=== PATIENT | female | born 1960 | race Caucasian/White ===

== ENCOUNTER → 2018-10-15 23:16 | Outpatient (CLI) | payer OTHER, SELFPAY ==
[2018-10-15 16:04] VITALS: BMI 40.5
[2018-10-15 23:36] LABS: Absolute Lymphocyte Count 3.07 X10^3/ul (0.83-4.51); Absolute Neutrophil Count 4.1 X10^3/uL (2.0-7.7); Basophil# 0.06 X10^3/uL; Basophil% 0.7 % (0-1); Eosinophil# 0.05 X10^3/uL; Eosinophils% 0.6 % (0-5); Hematocrit 45.5 % (37-47); Hemoglobin 14.9 g/dl (12.0-15.0); Lymphocyte # 3.07 X10^3/ul (4.0); Mean Corp Hgb Conc 32.7 g/gl (32-36); Mean Corpuscular Hgb 30.7 pg (27.0-32.0); Mean Corpuscular Volume 93.8 fL (81-99); Mean Platelet Vol. 13.4 fl (6.2-12.0); Monocyte# 0.75 X10^3/uL; Monocyte% 9.3 % (0-10); Neutrophil # 4.13 X10^3/uL (2.7-7.7); Neutrophil % 51.2 % (47-70); POSITIVE COUNT NO; POSITIVE DIFFERENTIAL NO; POSITIVE MORPHOLOGY NO; Platelet Count 224 K/mm3 (150-450); RBC Distribution Width CV 14.1 % (11.6-14.6); RBC Distribution Width SD 46.4 fl (35.1-43.9); Red Blood Count 4.85 M/mm3 (4.2-5.4); White Blood Count 8.1 K/mm3 (4.4-11.0)
[2018-10-16 00:09] LABS: ALB/GLOB Ratio 1.1 RATIO (0.9-2.4); AST(SGOT) 16 U/L (15-37); Alanine Aminotransfer ALT/SGPT 34 U/L (13-56); Alkaline Phosphatase 110 U/L (45-117); Anion Gap 11 (5-15); BUN 16 mg/dL (7-18); BUN/Creat Ratio 22.8 RATIO (10-20); Calcium,Total 8.9 mg/dL (8.5-10.1); Chloride 104 mmol/L (98-107); Cholesterol 251 mg/dL (200); EST Glomerular Filtration Rate 91 mL/min (>60); Est Glom Filt Rate - Afr Amer 111 mL/min (>60); Globulin 3.7 g/dL (2.2-4.2); Glucose 187 mg/dL (74-106); High Density Lipoprotein 32 mg/dL; Potassium 4.2 mmol/L (3.5-5.1); Protein, Total 7.7 g/dL (6.4-8.2); Sodium Level 137 mmol/L (136-145); Thyroid Stim Hormone (TSH) 1.42 uIU/mL (0.358-3.74); Triglycerides 370 mg/dL; Very Low Density Lipoprotein 74 mg/dL (5-40)
[2018-10-16 00:15] LABS: Digoxin Level 0.38 ng/mL (0.80-2.00)
--- OUTSIDE RECORDS SUMMARY | 2018-12-18 | XMS RPT_ITS ---
:1960 Author Organization OHIP Care Team Providers Name Role Phone Nyla Garcia POWDERER-C Attending Unavailable Nyla Garcia POWDERER-C Referring Unavailable Nyla Garcia POWDERER-C Primary Care Unavailable PROBLEMS PROBLEMS DATE TYPE CONDITION / CODE ATTENDING STATUS SOURCE 10/16/2018 Unknown I10 - Essential Garcia, Active [place] (primary) Nyla POWDERER-C [facility] hypertension / Hospital I10(ICD-10) Repository 10/16/2018 Unknown K21.9 - Garcia, Active [place] Gastro-esophageal Nyla POWDERER-C [facility] reflux disease Hospital without esophagitis Repository / K21.9(ICD-10) 10/16/2018 Unknown E11.65 - Type 2 Garcia, Active [place] diabetes mellitus Nyla POWDERER-C [facility] with hyperglycemia Hospital / E11.65(ICD-10) Repository 10/16/2018 Unknown I48.91 - Garcia, Active [place] Unspecified atrial Nyla POWDERER-C [facility] fibrillation / Hospital I48.91(ICD-10) Repository PROCEDURES PROCEDURES No Procedure Records FoundRESULTS RESULTS OFFICE VISIT Observed: 10/15/2018 Status: F Source: [place] 8:54 PM [facility] RE[facility]ITORY [facility] [address] [place] [address] OFFICE VISIT Date of Service: 10/15/18 MR#: [id number] Acct: [id number] Name: SACHIN SCHWAB Rep #: [id number] : 1960 Provider: RADHA Garcia Age/Sex: 58/F Location: [facility] Status: Signed Intake Vital Signs10/15/18 Height 5 ft 4.25 in 10/15/18 Weight: 238 lb Intake Visit Reasons: SEEKING NEW DR Accompanied by: self Is patient in pain?: No Allergies Uufkgtj-Moe-Ojg Reductase Inhibitor Allergy (Intermediate, Unverified 10/15/18 16:05) cramps Medications cholecalciferol (vitamin D3) 1,000 unit capsule 1,000 unit PO DAILY 10/15/18 [History Confirmed 10/15/18] dapagliflozin 10 mg tablet 10 mg PO DAILY 10/15/18 [History Confirmed 10/15/18] digoxin 125 mcg tablet 0.125 mg PO DAILY #90 tab 10/15/18 [Rx Confirmed 10/15/18] furosemide 20 mg tablet 20 mg PO DAILY PRN 10/15/18 [History Confirmed 10/15/18] losartan 50 mg tablet 50 mg PO DAILY #90 tab 10/15/18 [Rx Confirmed 10/15/18] metformin 500 mg tablet 500 mg PO BID #180 tab 10/15/18 [Rx Confirmed 10/15/18] metoprolol succinate ER 100 mg tablet,extended release 24 hr 100 mg PO DAILY #90 tab 10/15/18 [Rx Confirmed 10/15/18] omeprazole 40 mg capsule,delayed release 40 mg PO DAILY #90 cap 10/15/18 [Rx Confirmed 10/15/18] sitagliptin 100 mg tablet 100 mg PO DAILY 10/15/18 [History Confirmed 10/15/18] vitamin E (dl, acetate) 400 unit capsule 180 unit PO DAILY cap 10/15/18 [History Confirmed 10/15/18] Is last menstrual period known: No Post menopausal: Yes Patient : No PFSH Medical History Cardiac defibrillator in place (Acute) Diabetes type 2, uncontrolled (Acute) GERD (gastroesophageal reflux disease) (Acute) Myocardial infarct (Acute) Pacemaker (Acute) Hypertension (Chronic) Surgical History H/O heart artery stent (Acute) H/O tubal ligation (Acute) Family History Sister Breast cancer Diabetes Thyroid disorder Mother CVA (cerebral vascular accident) Diabetes Heart disease Myocardial infarction Father Heart disease Myocardial infarction Other CAD (coronary artery disease) HPI HPI (General) HPI HPI: EAMON SCHWAB, is a 58 F who presents to the office today for Her Dr moved away and she need her medications refilled. No concerns at this time last seen at the Dr was Jun ROS Const Constitutional: No anorexia, body ache, chills, excessive sweating, fatigue, fever(s), frequent falls, headache(s), decreased energy, malaise, night sweats, snoring, weakness, weight change, sleep problems, abnormal sleep pattern, change in appetite or other Eyes Eyes: No blurry vision, change in vision, double vision, discharge, dry eyes, bulging eyes, floaters, visual disturbances, eye pain, light sensitivity, spots in vision, tunnel vision or other ENT ENT: No headache(s), abnormal hearing, ear pain, ear discharge, ear pressure, hearing loss, tinnitus, dizziness/vertigo, balance problems, nosebleed/epistaxis, nasal congestion, nasal obstruction, nose pain, sinus pressure, sinus pain, nasal discharge, post nasal drip, facial pain, dental pain, dry mouth, difficulty swallowing, bad breath, hoarseness, lip swelling, mouth lesions, mouth pain, neck pain, sore throat, tongue swelling, throat swelling or other Resp Respiratory: No snoring, cough, change in phlegm color, chest congestion, excessive phlegm production, hemoptysis, pain on inspiration, shortness of breath, pain with cough, stridor, wheezing or other Cardio Cardiology: No excessive sweating, chest pain at rest, chest pain with exertion, leg pain with exertion, shortness of breath, dyspnea on exertion, generalized swelling, irregular heart rhythm, lightheadedness, orthopnea, radiating jaw, neck or arm pain, fast heart rate, slow heart rate, palpitations or other Gastro GI: No other, No Difficulty Swallowing, No abdominal pain, No belching, No bloating, No change in bowel habits, No change in stool character, No coffee ground emesis, No constipation, No cramping, No diarrhea, No heartburn, No feeling full early, No excessive flatus, No incontinent of stools, No Vomiting blood/hematemesis, No Blood in stool, No loose stools, No Black,tarry stools, No nausea/dyspepsia, No pain with swallowing, No vomiting, No hemorrhoids, No rectal pain Genitourinary: No urinary frequency, difficulty urinating, burning urination, painful urination, urinary urgency or blood in urine Musc Musculoskeletal: No neck pain, abnormal walking, joint pain, back pain, deformity, joint swelling, limited range of motion, loss of height, muscle cramps, muscle weakness, decreased muscle mass, body aches, numbness, radiating pain into limb, stiffness, tingling or other Skin Skin: No acne, hair loss, change in hair, nail changes, boil, change in skin color, dry skin, redness, excessive hair growth, yellowing of the skin, lesions, itching, rash, skin pain, skin ulcer, sores, skin swelling, wounds or other Breast Breast: No other Neuro Neurology: No frequent falls, headache(s), weakness, visual disturbances, abnormal hearing, abnormal walking, numbness, tingling, abnormal movements, abnormal speech, behavioral changes, confusion, unsteady gait/balance, dizziness, lack of coordination, loss of vision, memory loss, restless legs, fainting, tremor(s) or other Psych Psychiatric: No abnormal sleep pattern, No change in appetite, No behavioral changes, No confusion, No memory loss, No lack of enjoyment, No anxiety, No depression, No difficulty concentrating, No hopelessness, No irritability, No mood swings, No panic attacks, No paranoia, No Thoughts of harming yourself/Others, No hallucinations, No other Endo Endo: No excessive sweating, No fatigue, No other Aller/Imm Allergy/Immunologic: No lip swelling, tongue swelling, throat swelling, wheezing or itchy eyes Exam Const Constitutional: Yes cooperative, Yes healthy appearing Orientation: Yes alert, awake and oriented x3 Eyes General: Yes appearance normal, both eyes and all related structures Chest Chest palpation AND inspection: Yes normal inspection of the chest Resp Effort AND Inspection: No stridor Auscultation: Yes clear to auscultation bilaterally Cardio Palpitation: Yes normal PMI Rate: Yes regular rate Rhythm: Yes regular rhythm GI Inspection: Yes normal to inspection Auscultation: Yes normal bowel sounds Rectal Exam: No hemorrhoids Musc Cervical Spine: Yes cervical ROM normal Thoracic/Lumbar Spine: Yes thoracic and lumbar spine normal to inspection Skin General: no rashes or lesions noted Lesions: Yes no lesions Extrem General: Yes normal to inspection Neuro General: Yes alert and oriented x3 Motor: No weakness Psych Appearance: Positive grossly normal Mood: Positive congruent mood Affect: Positive normal affect Results POC A1C POC A1C 9.3 % Last Edit by ESTEBAN Castellanos on 10/15/18 20:53 Assessment AND Plan Problems 1. Gastroesophageal reflux disease without esophagitis K21.9 2. Uncontrolled type 2 diabetes mellitus with hyperglycemia E11.65 3. Essential hypertension I10 Patient Instructions Start the new medication farxiga instead of the januvia continue the other medications as prescribed follow up 3-4 Orders Orders: Medications New: Coding Level of Care Code Off vis,new,level 3 Diagnoses Gastroesophageal reflux disease without esophagitis K21.9 Esophagitis presence: without esophagitis Uncontrolled type 2 diabetes mellitus with hyperglycemia E11.65 Glycemic state: with hyperglycemia Essential hypertension I10 Hypertension type: essential hypertension 10/15/182053 <Electronically signed by Nyla ORELLANA> Date Nyla ORELLANA CC: CBC W/DIFF, AUTOMATED Collected: 10/15/2018 Status: F Source: [place] 4:45 PM [facility] REPOSITORY TYPE CODE TESTS RESULT OUT OF RANGE REFERENCE UNITS LAB L100.1000 4.4-11.0 K/mm3 Normal WBC 8.1 LAB L100.1200 4.2-5.4 M/mm3 Normal RBC 4.85 LAB L100.1300 12.0-15.0 g/dl Normal HGB 14.9 LAB L100.1400 37-47 % Normal HCT 45.5 LAB L100.1500 81-99 fL Normal MCV 93.8 LAB L100.1600 27.0-32.0 pg Normal MCH 30.7 LAB L100.1700 32-36 g/gl Normal MCHC 32.7 LAB L100.1810 11.6-14.6 % Normal RDW CV 14.1 LAB L100.1820 35.1-43.9 fl High RDW SD 46.4 LAB L100.1900 150-450 K/mm3 Normal PLT 224 LAB L100.2000 6.2-12.0 fl High MPV 13.4 LAB L100.2100 47-70 % Normal NEUT% 51.2 LAB L100.2200 19-41 % Normal LY% 38.0 LAB L100.2300 0-10 % Normal MONO% 9.3 LAB L100.2400 0-5 % Normal EO% 0.6 LAB L100.2500 0-1 % Normal BASO% 0.7 LAB L100.2550 0.0-0.9 % Normal IM GRAN % 0.200 Result Comment: IG% - Immature Granulocytes (promyelocytes, myelocytes and metamyelocytes) > 1% indicates that a LEFT SHIFT is Present. LAB L100.2620 2.0-7.7 X10 3/uL Normal Absolute Neut 4.1 LAB L100.2720 0.83-4.51 X10 3/ul Normal Absolute Lymph 3.07 Performed By: #### L100.0100 #### [facility] [place], [address] COMPREHENSIVE METABOLIC Collected: 10/15/2018 Status: F Source: [facility] 4:45 PM [facility] REPOSITORY TYPE CODE TESTS RESULT OUT OF RANGE REFERENCE UNITS LAB L501.0100 74-106 mg/dL High GLU 187 Result Comment: Fasting Glucose result greater than or equal to 126 mg/dL suggests DIABETES MELLITUS per A.D.A. criteria. Please note revised GLUCOSE reference range effective 2017. LAB L501.1000 7-18 mg/dL Normal BUN 16 LAB L501.1100 0.55-1.02 mg/dL Normal CREAT,SERUM 0.70 Result Comment: The validity of the calculated GFR AND GFRAA in patients over 70 years has not been determined. Clinical correlation is essential. LAB L501.1110 >60 mL/min Normal EST GFR 91 Result Comment: Non- GFR Calc LAB L501.1115 >60 mL/min Normal EST GFR - AA 111 Result Comment: GFR Calc LAB L501.1300 10-20 RATIO High BUN/CRE 22.8 LAB L501.1500 6.4-8.2 g/dL T Normal PROT 7.7 LAB L501.1800 3.2-5.0 g/dL Normal ALB 4.0 LAB L501.1950 2.2-4.2 g/dL Normal GLOB 3.7 LAB L501.2000 0.9-2.4 RATIO Normal A/G 1.1 LAB L501.2200 8.5-10.1 mg/dL CA Normal 8.9 LAB L501.4100 15-37 U/L Normal AST 16 LAB L501.4305 45-117 U/L Normal ALK P 110 LAB L501.4405 13-56 U/L Normal ALT 34 LAB L501.4600 0.20-1.00 mg/dL T Normal BILI 0.30 LAB L501.5300 136-145 mmol/L NA Normal 137 LAB L501.5600 3.5-5.1 mmol/L K Normal 4.2 LAB L501.5900 98-107 mmol/L CL Normal 104 LAB L501.6100 21.0-32.0 mmol/L Normal CO2 22.0 LAB L501.6200 5-15 Normal GAP 11 Performed By: #### L500.4050, L500.4100, L501.9520 #### [facility] [address] [place], [place], [id number] LIPID PROFILE Collected: 10/15/2018 Status: F Source: [place] 4:45 PM [facility] REPOSITORY TYPE CODE TESTS RESULT OUT OF RANGE REFERENCE UNITS LAB L501.4900 200 mg/dL High CHOL 251 Result Comment: <200 mg/dL Desirable 200-240 mg/dL Borderline >240 mg/dL High Risk LAB L501.5000 mg/dL High TRIG 370 Result Comment: The drugs N-Acetylcysteine and Metamizole may falsely depress this assay. Serum Triglycerides Reference Interval Normal <150 mg/dL Borderline high 150 - 199 mg/dL High 200 - 499 mg/dL Very High > or = 500 mg/dL LAB L501.6400 mg/dL Low HDL 32 Result Comment: The drugs N-Acetylcysteine and Metamizole may falsely depress this assay. Reference Range HDL <40 mg/dL Low HDL Cholesterol HDL >or= 60 mg/dL High HDL Cholesterol LAB L501.6500 0-130 mg/dL High LDL 145 LAB L501.6600 5-40 mg/dL High VLDL 74 Performed By: #### L500.4050, L500.4100, L501.9520 #### [facility] [address] [place], [place], [id number] THYROID STIM HORMONE Collected: 10/15/2018 Status: F Source: [place] (TSH) 4:45 PM [facility] REPOSITORY TYPE CODE TESTS RESULT OUT OF RANGE REFERENCE UNITS LAB L501.9520 0.358-3.74 uIU/mL Normal TSH 1.42 Performed By: #### L500.4050, L500.4100, L501.9520 #### [facility] [address] [place], [address] DIGOXIN LEVEL Collected: 10/15/2018 Status: F Source: [place] 4:45 PM [facility] REPOSITORY TYPE CODE TESTS RESULT OUT OF RANGE REFERENCE UNITS LAB L501.7510 0.80-2.00 ng/mL Low DIG 0.38 Performed By: #### L501.7510 #### [facility] [address] [place], [address] ALLERGIES ALLERGIES DATE TYPE / CODE NAME / CODE REACTION SEVERITY SOURCE 10/15/2018 Drug Xpnsfgb-Eyb-Tpk [place] [facility] Allergy/[facility] 282966(SNOM Inhibitor/A86139 Repository ED CT) 7814(RXNORM) ENCOUNTERS ENCOUNTERS ADMIT/DISCHARGE ACCOUNT ADMITTING ENCOUNTER LOCATION SOURCE NUMBER CLASS 10/15/2018 [id number] Ambulatory [address] ing:LABSPEC Repository PAYERS PAYERS ENCOUNTER GUARANTOR PAYER SUBSCRIBER SOURCE 10/15/2018 SACHIN L Primary SACHIN L [place] [id number] [place] [address] Insurance:MEDICAL [employer]: [id number] [id number]: [phone]) Number: Repository [phone] () [id number] Date:[id number] [address] [place] [id number]: 10/15/2018 Secondary NOT GIVENUNK [place] Insurance:SELF PAY [facility] Number: Effective Repository Date:2018-10-15
== END ==
PROVIDERS: Family Provider Nurse Practitioner; PCP Nurse Practitioner; Referring Provider Nurse Practitioner; Visit Provider Nurse Practitioner
DX: I10 Essential (primary) hypertension (principal); K21.9 Gastro-esophageal reflux disease without esophagitis; E11.65 Type 2 diabetes mellitus with hyperglycemia; I48.91 Unspecified atrial fibrillation
CPT/HCPCS: 80053; 80061; 80162; 84443; 85025

== ENCOUNTER → 2018-10-31 21:40 | Outpatient (CLI) | payer OTHER, SELFPAY ==
[2018-10-31 15:56] VITALS: BMI 40.4
[2018-10-31 21:53] LABS: Absolute Lymphocyte Count 3.35 X10^3/ul (0.83-4.51); Absolute Neutrophil Count 4.6 X10^3/uL (2.0-7.7); Basophil# 0.04 X10^3/uL; Basophil% 0.4 % (0-1); Eosinophil# 0.09 X10^3/uL; Lymphocyte # 3.35 X10^3/ul (4.0); Lymphocyte % 37.1 % (19-41); Mean Corp Hgb Conc 31.9 g/gl (32-36); Mean Corpuscular Hgb 30.4 pg (27.0-32.0); Mean Corpuscular Volume 95.3 fL (81-99); Mean Platelet Vol. 13.4 fl (6.2-12.0); Monocyte# 0.95 X10^3/uL; Monocyte% 10.5 % (0-10); Neutrophil # 4.58 X10^3/uL (2.7-7.7); Neutrophil % 50.8 % (47-70); Platelet Count 268 K/mm3 (150-450); RBC Distribution Width CV 14.3 % (11.6-14.6); RBC Distribution Width SD 49.4 fl (35.1-43.9); Red Blood Count 4.93 M/mm3 (4.2-5.4)
[2018-10-31 21:54] LABS: POSITIVE COUNT NO; POSITIVE DIFFERENTIAL NO; POSITIVE MORPHOLOGY NO
[2018-10-31 22:36] LABS: ALB/GLOB Ratio 1.1 RATIO (0.9-2.4); AST(SGOT) 20 U/L (15-37); Alanine Aminotransfer ALT/SGPT 41 U/L (13-56); Albumin, Serum 4.1 g/dL (3.2-5.0); Alkaline Phosphatase 101 U/L (45-117); Anion Gap 12 (5-15); BUN 15 mg/dL (7-18); Calcium,Total 9.1 mg/dL (8.5-10.1); Chloride 105 mmol/L (98-107); Cholesterol 258 mg/dL (200); Creatinine, Serum 0.72 mg/dL (0.55-1.02); EST Glomerular Filtration Rate 90 mL/min (>60); Est Glom Filt Rate - Afr Amer 109 mL/min (>60); Globulin 3.9 g/dL (2.2-4.2); Glucose 215 mg/dL (74-106); High Density Lipoprotein 34 mg/dL; Potassium 4.2 mmol/L (3.5-5.1); Sodium Level 139 mmol/L (136-145); Thyroid Stim Hormone (TSH) 1.33 uIU/mL (0.358-3.74); Triglycerides 475 mg/dL
== END ==
PROVIDERS: Referring Provider Nurse Practitioner; Visit Provider Nurse Practitioner
DX: I10 Essential (primary) hypertension (principal); I49.8 Other specified cardiac arrhythmias; E11.65 Type 2 diabetes mellitus with hyperglycemia
CPT/HCPCS: 80053; 80061; 84443; 84484; 85025

== ENCOUNTER → 2020-02-27 12:31 | Outpatient (CLI) | payer OTHER, SELFPAY ==
[2019-12-11 17:21] VITALS: BMI 39.2
== END ==
PROVIDERS: PCP Nurse Practitioner; Referring Provider Nurse Practitioner; Visit Provider Nurse Practitioner
DX: Z20.828 Contact with and (suspected) exposure to other viral communicable diseases (principal)
CPT/HCPCS: 87635; G2023; U0003

== ENCOUNTER 2020-03-20 19:05 | Emergency (ER) | payer OTHER, SELFPAY ==
[2019-12-11 17:21] VITALS: BMI 39.2
[2020-03-20 19:06] VITALS: BP 157/69; PULSE 112; RESP 19; TEMP 36.8; O2SAT 94; BMI 40.2
[2020-03-20 19:33] VITALS: O2SAT 97
--- NOTE | 2020-03-20 19:33 | RAD_ITS ---
HISTORY: began to feel very short of breath at home then her internal defibrilator went off per ptHX CHF, PR EXAM: XR Chest 1 View: COMPARISON: None FINDINGS: # of images incl. paperwork: 1 Left chest wall triple lead cardiac pacer/defibrillator is in place from a left subclavian approach. Calcific plaque within the aortic arch is minimal Lungs are clear. Heart is not enlarged. No acute osseous pathology perceived. Pulmonary vascularity is distinct. No effusions. RAD/Chest 1 View (Portable) IMPRESSION: No acute cardiopulmonary disease perceived. at 2037 Reported and signed by: Hua Baugh MD Electronically Signed: Hua Baugh MD at 20:36 EDT Tel , Service support ,
--- NOTE | 2020-03-20 19:33 | EKG12_ITS ---
Test Reason : CP Blood Pressure : / mmHG Vent. Rate : 107 BPM Atrial Rate : 107 BPM P-R Int : 124 ms QRS Dur : 126 ms QT Int : 380 ms P-R-T Axes : 096 -73 107 degrees QTc Int : 507 ms Atrial-sensed ventricular-paced rhythm Abnormal ECG Confirmed by HEATHER MACDONALD, CLAUDIA ([id number]), editor map CONNIE HOOKER ([id number]) on 03/23/2020 11:04:31 AM Referred By: SCOT BIRCH Confirmed By:CLAUDIA ROMERO MD
--- NOTE | 2020-03-20 19:34 | ED.VIS.CHEST ---
History of Present Illness Chief Complaint: Chest Pain Detail of Chief Complaint: sob Informant: Patient Onset: Today - JPTA Activity at onset: Light Activity Timing: Intermittent - 2-3 min Quality: - - No chest discomfort. Just felt short of breath and some left upper extremity discomfort, lightheadedness. Current Severity: Gone Maximum Severity: Moderate Worsened By: Nothing Relieved By: - - AICD firing once Associated Symptoms: Dyspnea, Lightheadedness, Palpitations. Negative for: Nausea, Vomiting, Diaphoresis Narrative: Patient has a history of CAD and congestive heart failure with an AICD/pacemaker, she states she was putting on her pajamas and suddenly felt very short of breath, lightheaded, some left arm discomfort, and within 2 or 3 minutes of the starting suddenly, her AICD fired once, and then she felt better which she does now just a little malaised. She has otherwise been feeling fine lately. - Past Medical History (1) Congestive heart failure Status: Chronic (2) CAD (coronary artery disease) Status: Chronic (3) Diabetes type 2, uncontrolled Status: Chronic (4) GERD (gastroesophageal reflux disease) Status: Chronic (5) Hypertension Status: Chronic Past Medical History - Allergies and Home Meds Allergies/Adverse Reactions: Allergies Jkflzcb-Gah-Kot Reductase Inhibitor Allergy (Intermediate, Unverified 03/20/20 20:35) cramps Primary Care Physician: EP cardiology device clinic, [place] [Other] (after the weekend; call Sunday AM for appt) Nyla Garcia NP-C [Primary Care Provider] - Surgical History: pacemaker implantation - With AICD Lives: Spouse/ Significant Other Smoking Status: Never smoker Review of Systems General: Reports: - - Lightheaded near syncope but no LOC. Denies: Chills, Fever, Sweats Eyes: Denies: Visual changes - bilaterally, Diplopia ENT: Denies: Rhinorrhea, Sore throat Cardiovascular: Reports: Palpitations, Heart racing. Denies: Chest pain Respiratory: Reports: Dyspnea. Denies: Cough, Dyspnea on exertion Gastrointestinal: Denies: Abdominal pain, Nausea, Vomiting, Diarrhea, Melena, Hematochezia Genitourinary: Denies: Dysuria, Hematuria, Frequency Musculoskeletal: Reports: Extremity Pain - Left arm. Resolved.. Denies: Back pain, Swelling Skin: Denies: Rash, Wounds Neurological: Denies: Headache, Weakness, Numbness Physical Exam Vital Signs/Narrative: Vital Signs Temp Pulse Resp BP Pulse Ox 03/20/20 19:06 98.2 F 112 H 19 H 157/69 H 94 Inital Vital Signs reviewed: Yes General: Well nourished, Well developed, No Acute Distress Head: Normocephalic, Atraumatic Eyes: Perrl, EOMI ENT: Moist mucous membranes, No rhinorrhea Neck: Supple, Nontender, No JVD Cardiovascular: Regular rate, Regular rhythm, No murmurs. Negative for: Irregular Respiratory: No distress, CTA bilaterally, Chest nontender Abdomen: Soft, Nontender, Nondistended, Normal bowel sounds Back: Nontender, Normal Inspection Extremities: Nontender, No edema. Negative for: Calf Tenderness Skin: Normal color, No rash, No Trauma Neurological: Alert, Oriented x3, Cranial nerves II-XII grossly intact, Normal Strength, Normal Sensation, Normal Gait Psychological: Normal affect, Normal Mood Diagnostic/Tx/Re-eval Impressions Chest X-Ray 03/20/20 19:33 IMPRESSION: No acute cardiopulmonary disease perceived. at 2037 Reported and signed by: Hua Baugh MD Electronically Signed: Hua Baugh MD at 20:36 EDT Tel , Service support , 03/20/20 19:33 Chest 1 View (Portable) [RAD] Stat Laboratory Results 03/20/20 03/20/20 19:13 19:13 WBC 7.7 RBC 4.81 Hgb 14.7 Hct 45.9 MCV 95.4 MCH 30.6 MCHC 32.0 RDW Std Deviation 47.8 H RDW Coeff of Cally 13.7 Plt Count 223 MPV 12.6 H Immature Gran % (Auto) 0.300 Neut % (Auto) 45.0 L Lymph % (Auto) 41.4 H Sanders % (Auto) 11.4 H Eos % (Auto) 1.0 Baso % (Auto) 0.9 Absolute Neuts (auto) 3.5 Absolute Lymphs (auto) 3.18 Nucleated RBC % 0 Sodium 136 Potassium 3.8 Chloride 102 Carbon Dioxide 25.0 Anion Gap 9 BUN 14 Creatinine 1.03 H Estim Creat Clear Calc 52.04 Est GFR (MDRD) Af Amer 71 Est GFR (MDRD) Non-Af 59 L BUN/Creatinine Ratio 13.6 Glucose 416 H Calcium 9.1 Troponin I < 0.015 - Rhythm Strip Rhythm Strip: paced Rate: 100 Ectopy: None - EKG Initial EKG Interpretation: Paced - Ventricular pacing capture. Rhythm undetermined, appears sinus tachycardia. Prior: No Prior Repeat Eval: Pain Free - Medical Decision Making Work-up unremarkable, troponin negative, patient remains chest pain-free and without dyspnea or palpitations. She is on metoprolol and digoxin and no antidysrhythmics otherwise. She has a [employer] device. She clinically and hemodynamically stable. [employer] scale technician came and queried her device. It showed atrial fibrillation, followed by her ventricular rate surpassing her threshold, which caused her to have AICD discharge, resulting in cardioversion. Patient does have a known history of paroxysmal atrial fibrillation and is not anticoagulated. She follows with the device clinic at [facility] in [place], and sees Dr. Pettit, the italian tutor there but does not follow with an EP mft at this time. Dr. Pettit was ship's electronic warfare officer and I was actually able to speak with him, he is okay with the patient going home at this time and coming back if she gets another discharge or any other issues, and in the meantime doubling her metoprolol succinate dose from 100 mg nightly to 200. She took her medication just prior to this occurring, I will give her another dose now prior to discharging her home and then she will double her dose tomorrow night and going forward till she follows up. She is comfortable with that overall plan. ED Disposition - Plan for ED Patient: Disposition: Home or Assisted Living Diagnosis: Dyspnea, AICD discharge, Paroxysmal A-fib Instructions: ED AFIB Referrals: Nyla Garcia, RADHA-C [Primary Care Provider] - EP cardiology device clinic, [place] [[facility]] (after the weekend; call Sunday AM for appt) Additional Instructions: Starting tomorrow night, double your dose of metoprolol so that you are taking 200 mg every night before bed.
[2020-03-20 20:04] LABS: Absolute Lymphocyte Count 3.18 X10^3/uL (0.83-4.51); Absolute Neutrophil Count 3.5 X10^3/uL (2.0-7.7); Basophil# 0.07 X10^3/uL; Basophil% 0.9 % (0-1); Eosinophil# 0.08 X10^3/uL; Hematocrit 45.9 % (37-47); Hemoglobin 14.7 g/dL (12.0-15.0); Lymphocyte # 3.18 X10^3/ul (4.0); Lymphocyte % 41.4 % (19-41); Mean Corpuscular Hgb 30.6 pg (27.0-32.0); Mean Corpuscular Volume 95.4 fL (81-99); Mean Platelet Vol. 12.6 fl (6.2-12.0); Monocyte# 0.88 X10^3/uL; Monocyte% 11.4 % (0-10); NRBC Flagged by Analyzer 0 % (0-5); Neutrophil # 3.46 X10^3/uL (2.7-7.7); Platelet Count 223 K/mm3 (150-450); RBC Distribution Width CV 13.7 % (11.6-14.6); RBC Distribution Width SD 47.8 fl (35.1-43.9); Red Blood Count 4.81 M/mm3 (4.2-5.4); White Blood Count 7.7 K/mm3 (4.4-11.0)
[2020-03-20 20:05] VITALS: PULSE 92; RESP 22; O2SAT 96
[2020-03-20 20:21] LABS: Anion Gap 9 (5-15); BUN 14 mg/dL (7-18); BUN/Creat Ratio 13.6 RATIO (10-20); Calcium,Total 9.1 mg/dL (8.5-10.1); Chloride 102 mmol/L (98-107); Creatinine, Serum 1.03 mg/dL (0.55-1.02); EST Glomerular Filtration Rate 59 mL/min (>60); Est Glom Filt Rate - Afr Amer 71 mL/min (>60); Estimated Creatinine Clearance 52.04 ml/min; Glucose 416 mg/dL (74-106); Potassium 3.8 mmol/L (3.5-5.1); Sodium Level 136 mmol/L (136-145)
[2020-03-20] MEDS: 0.9% Normal Saline 1,000 ML 150 ML IV (20:35)
[2020-03-20 22:00] VITALS: BP 121/65; PULSE 89; RESP 20; O2SAT 96
[2020-03-20] MEDS: Metoprolol(XL)Succ 100 MG Tablet PO (22:19)
[2020-03-20 22:29] VITALS: RESP 19; O2SAT 95
== END 2020-03-20 22:29 | disposition home or self-care (01) ==
PROVIDERS: Emergency Provider Emergency Medicine; PCP Nurse Practitioner
DX: R06.00 Dyspnea, unspecified (principal); Z95.810 Presence of automatic (implantable) cardiac defibrillator; I48.0 Paroxysmal atrial fibrillation; I11.0 Hypertensive heart disease with heart failure; I50.9 Heart failure, unspecified; E11.9 Type 2 diabetes mellitus without complications; I25.10 Atherosclerotic heart disease of native coronary artery without angina pectoris; K21.9 Gastro-esophageal reflux disease without esophagitis; Z79.84 Long term (current) use of oral hypoglycemic drugs; Z79.899 Other long term (current) drug therapy
CPT/HCPCS: 71045; 80048; 84484; 85025; 93005; 96360; 96361; 99285; J7030; A4216

== ENCOUNTER → 2020-12-06 21:36 | Outpatient (CLI) | payer OTHER, SELFPAY ==
[2020-12-06 17:53] VITALS: BMI 38.9
[2020-12-06 22:08] LABS: Absolute Lymphocyte Count 3.16 X10^3/uL (0.83-4.51); Absolute Neutrophil Count 3.1 X10^3/uL (2.0-7.7); Basophil# 0.07 X10^3/uL; Eosinophil# 0.07 X10^3/uL; Hematocrit 47.1 % (37-47); Hemoglobin 15.4 g/dL (12.0-15.0); Lymphocyte # 3.16 X10^3/ul (4.0); Lymphocyte % 44.4 % (19-41); Mean Corp Hgb Conc 32.7 g/dL (32-36); Mean Corpuscular Hgb 30.5 pg (27.0-32.0); Mean Corpuscular Volume 93.3 fL (81-99); Mean Platelet Vol. 13.3 fl (6.2-12.0); Monocyte# 0.66 X10^3/uL; Monocyte% 9.3 % (0-10); NRBC Flagged by Analyzer 0 % (0-5); Neutrophil # 3.13 X10^3/uL (2.7-7.7); Platelet Count 214 K/mm3 (150-450); RBC Distribution Width CV 13.2 % (11.6-14.6); RBC Distribution Width SD 44.9 fl (35.1-43.9); Red Blood Count 5.05 M/mm3 (4.2-5.4); White Blood Count 7.1 K/mm3 (4.4-11.0)
[2020-12-06 22:31] LABS: AST(SGOT) 19 U/L (15-37); Alanine Aminotransfer ALT/SGPT 42 U/L (13-56); Albumin, Serum 3.9 g/dL (3.2-5.0); Alkaline Phosphatase 157 U/L (45-117); Anion Gap 6 (5-15); BUN 17 mg/dL (7-18); BUN/Creat Ratio 26.8 RATIO (10-20); Calcium,Total 9.3 mg/dL (8.5-10.1); Chloride 101 mmol/L (98-107); Cholesterol 294 mg/dL (200); Creatinine, Serum 0.64 mg/dL (0.55-1.02); EST Glomerular Filtration Rate 102 mL/min (>60); Est Glom Filt Rate - Afr Amer 123 mL/min (>60); Globulin 3.8 g/dL (2.2-4.2); Glucose 230 mg/dL (74-106); High Density Lipoprotein 28 mg/dL; Potassium 3.9 mmol/L (3.5-5.1); Protein, Total 7.7 g/dL (6.4-8.2); Sodium Level 134 mmol/L (136-145); Triglycerides 660 mg/dL
[2020-12-06 22:36] LABS: Hemoglobin A1c 11.3 % (3.8-5.6)
== END ==
PROVIDERS: PCP Nurse Practitioner; Referring Provider Nurse Practitioner; Visit Provider Nurse Practitioner
DX: I10 Essential (primary) hypertension (principal); E11.65 Type 2 diabetes mellitus with hyperglycemia
CPT/HCPCS: 80053; 80061; 83036; 85025

== ENCOUNTER 2021-09-28 18:41 | Emergency (ER) | payer OTHER, SELFPAY ==
[2021-09-28 18:42] VITALS: BP 144/86; PULSE 115; RESP 16; TEMP 36.5; BMI 34.4
[2021-09-28 20:40] VITALS: O2SAT 90
[2021-09-28 20:49] VITALS: PULSE 110; O2SAT 94
[2021-09-28 20:53] VITALS: O2SAT 91
--- NOTE | 2021-09-28 21:08 | EDS_ITS ---
HPI HPI - URI History of Present Illness Chief Complaint: Cough Informant: patient Onset/Context/Timing Onset: Weeks (1) Context: Gradual Onset Timing: Continuous Quality: malasied, achy Location: all over Current Severity: Moderate Maximum Severity: Moderate Worsened by: - (n/a) Relieved by: - (nothing) Associated Symptoms Associated Symptoms: Positive for Headache, Myalgias and Nonproductive cough; Negative for Nausea, Vomiting, Diarrhea, Shortness of Breath and Chest Pain Narrative Narrative: Patient with respiratory symptoms for the past week, today is day 8. She is unvaccinated against Covid and she has had multiple exposures to people that she knows of with Covid recently. She has had cough, fevers, chills, fatigue, headache. No GI symptoms. ROS ROS ED Constitutional Constitutional ED: Reports body ache(s), chills, fatigue, fever(s), headache(s) and malaise Eyes Eyes: Denies change in vision or diplopia ENT ENT ED: Denies rhinorrhea or sore throat Cardiovascular Cardiovascular: Denies chest pain or palpitations Respiratory/Chest Respiratory/Chest: Reports cough; Denies dyspnea or dyspnea on exertion Gastrointestinal Gastrointestinal: Denies abdominal pain, diarrhea, nausea or vomiting Genitourinary Genitourinary ED: Denies dysuria or hematuria Musculoskeletal Musculoskeletal: Denies back pain or neck pain Integumentary Denies abscess or rash Neurologic Neurologic: Reports headache(s); Denies paresthesias or weakness Psychiatric Psychiatric: Denies anxiety or suicidal thoughts [facility] Medical History (Updated 09/28/21 @ 21:[address] Nik Bundy MD) Cardiac defibrillator in place Diabetes type 2, uncontrolled GERD (gastroesophageal reflux disease) Hypertension Myocardial infarct Pacemaker Home Medications cholecalciferol (vitamin D3) 25 mcg (1,000 unit) capsule 1,000 unit PO DAILY 10/15/18 [History Last Taken Unknown] furosemide 20 mg tablet 20 mg PO DAILY PRN 10/15/18 [History Last Taken Unknown] vitamin E (dl, acetate) 180 mg (400 unit) capsule 180 unit PO DAILY cap 10/15/18 [History Last Taken Unknown] omega-3 fatty acids 1,000 mg capsule 2,000 mg PO DAILY cap 11/14/18 [History Last Taken Unknown] aspirin 81 mg chewable tablet 81 mg PO DAILY 03/15/21 [History Last Taken Unknown] dapagliflozin 10 mg tablet 10 mg PO DAILY #90 tab 12/06/20 [Rx Last Taken Unknown] digoxin 125 mcg (0.125 mg) tablet 125 mcg PO DAILY #90 tab 12/06/20 [Rx Last Taken Unknown] losartan 50 mg tablet 50 mg PO DAILY #90 tab 12/06/20 [Rx Last Taken Unknown] metformin 500 mg tablet 500 mg PO BID #180 tab 12/06/20 [Rx Last Taken Unknown] metoprolol succinate 100 mg tablet,extended release 24 hr 100 mg PO DAILY #90 tab 12/06/20 [Rx Last Taken Unknown] nitroglycerin 0.4 mg sublingual tablet 0.4 mg SUBLINGUAL Q5-15M PRN #30 tab 12/06/20 [Rx Last Taken Unknown] omeprazole 40 mg capsule,delayed release 40 mg PO DAILY PRN #90 cap 12/06/20 [Rx Last Taken Unknown] amoxicillin 875 mg tablet 875 mg PO BID #20 tab 07/18/21 [Rx Last Taken Unknown] metformin 850 mg tablet 850 mg PO BID #60 tab 07/18/21 [Rx Last Taken Unknown] semaglutide 0.25 mg SUBCUT QWEEK 07/18/21 [History Last Taken Unknown] Allergy/AdvReac Type Severity Reaction Status Date / Time Lvqwetl-FFB-MnU Reductase Allergy Intermediate cramps Unverified 09/28/21 18:46 Inhibitor [Fapwnsb-Zhg-Tsx Reductase Inhibitor] Family History (Reviewed 12/07/20 @ 10:24 by Nyla Garcia ELECTRONIC WARFARE OPERATOR, ELECTRONIC WARFARE OPERATOR-C) Sister Breast cancer Diabetes Thyroid disorder Mother CVA (cerebral vascular accident) Diabetes Heart disease Myocardial infarction Father Heart disease Myocardial infarction Other CAD (coronary artery disease) Surgical History H/O heart artery stent H/O tubal ligation Social History Smoking Status: Never smoker EXAM Physical Exam Const Vital Signs: 09/28/21 18:42 09/28/21 20:40 09/28/21 20:49 Temperature 97.7 F L Temperature Source Temporal Pulse Rate 115 H 110 H Respiratory Rate 16 Respiratory Effort Respiratory Depth Blood Pressure 144/86 H Blood Pressure Mean 105 Pulse Ox 90 94 Oxygen Delivery Method Room Air Nasal Cannula Oxygen Flow Rate (L/min) 2 01/05/22 20:54 Temperature Temperature Source Pulse Rate Respiratory Rate Respiratory Effort Normal Non-Labored Respiratory Depth Normal Blood Pressure Blood Pressure Mean Pulse Ox Oxygen Delivery Method Oxygen Flow Rate (L/min) Positive well nourished and well developed Constitutional Narrative: Malaised-appearing, no distress General Appearance ED: well developed and NAD HEENT Reports moist mucous membranes normocephalic and atraumatic Eyes PERRL and EOMs intact bilaterally Neck full ROM and supple Resp normal respiratory effort and clear to auscultation bilaterally Cardio regular rate, regular rhythm and no murmurs Rate: Negative for tachycardic GI non-tender and non-distended Auscultation: normoactive bowel sounds Palpation: soft Back/Spine no CVA tenderness General Back: other FROM Extremity normal to inspection and no calf tenderness General Extremety ED: Negative for edema, pulses abnormal or tenderness General Extremity: Negative for edema or pulses abnormal Neuro oriented x3, CN's II-XII intact bilaterally and no sensory deficits noted Sensorium / Orientation: awake and alert Motor Exam: strength 5/5 throughout Skin no rashes or lesions noted and no wounds MDM MDM MDM Narrative Medical decision making narrative: She test positive for Covid here. Her pulse ox is around 90% on room air, she walked around a little and she is 94%. We discussed monoclonal antibody therapy, she is amenable to that, and is referred for it with the order placed. She was given Tylenol for headache, we discussed reasons to return gave her appropriate discharge instructions. Discharge Plan Triage Chief Complaint: Cough ED Provider: Nik Bundy Dx/Rx/DC Orders Clinical Impression: COVID-19 Instructions: Coronavirus Disease 2019 (COVID-19): Caring for Yourself or Others, ED - COVID Monoclonal AB Infusion ... Prescriptions: No Action vitamin E (dl, acetate) 400 unit capsule 180 unit PO DAILY RF: 0 cholecalciferol (vitamin D3) 1,000 unit capsule 1,000 unit capsule 1,000 unit PO DAILY RF: 0 furosemide 20 mg tablet 20 mg PO DAILY PRN (Reason: Swelling) RF: 0 omega-3 fatty acids [Fish Oil Concentrate] 1,000 mg capsule 2,000 mg PO DAILY RF: 0 aspirin [Aspirin Childrens] 81 mg tablet,chewable 81 mg PO DAILY RF: 0 digoxin 125 mcg (0.125 mg) tablet 125 mcg PO DAILY Qty: 90 RF: 3 Farxiga 10 mg tablet 10 mg PO DAILY Qty: 90 RF: 3 metformin 500 mg tablet 500 mg PO BID Qty: 180 RF: 3 metoprolol succinate 100 mg tablet extended release 24 hr 100 mg PO DAILY Qty: 90 RF: 3 nitroglycerin 0.4 mg tablet, sublingual 0.4 mg SUBLINGUAL Q5-15M PRN (Reason: chest pain) Qty: 30 RF: 12 omeprazole 40 mg capsule,delayed release(DR/EC) 40 mg PO DAILY PRN (Reason: GERD) Qty: 90 RF: 3 losartan 50 mg tablet 50 mg PO DAILY Qty: 90 RF: 3 metformin 850 mg tablet 850 mg PO BID Qty: 60 RF: 5 Ozempic 0.25 mg or 0.5 mg(2 mg/1.5 mL) pen injector 0.25 mg subcut QWEEK RF: 0 amoxicillin 875 mg tablet 875 mg PO BID Qty: 20 RF: 0 Primary Care Provider: Nyla Garcia NP Referrals: Nyla Garcia NP, ELECTRONIC WARFARE OPERATOR-C [Primary Care Provider] - As Needed Activity Restrictions/Additional Instructions: Try to get a home portable pulse oximeter and closely watch your oxygen levels periodically. If you stay below 90% for more than a minute or so, and/or you are feeling like your breathing is getting worse, return to the emergency department for further evaluation. You are a candidate for monoclonal antibody infusion therapy, see the attached instructions for more information. They will call you concerning when they want you to come to the clinic to get the infusion which is a one-time dose to help protect you from getting more ill and becoming hospitalized with life-threate francois illness due to Covid given your risk for worsening. Disposition Disposition: Home, Self Care
[2021-09-28 21:26] VITALS: PULSE 103; RESP 20; O2SAT 93
[2021-09-28] MEDS: Acetaminophen 500 MG Tablet 1000 MG PO (21:26)
== END 2021-09-28 21:27 | disposition home or self-care (01) ==
PROVIDERS: Emergency Provider Emergency Medicine; PCP Nurse Practitioner; Visit Provider Emergency Medicine
DX: U07.1 COVID-19 (principal); E11.9 Type 2 diabetes mellitus without complications; I10 Essential (primary) hypertension; Z95.810 Presence of automatic (implantable) cardiac defibrillator; I25.2 Old myocardial infarction; K21.9 Gastro-esophageal reflux disease without esophagitis; Z79.899 Other long term (current) drug therapy; Z79.84 Long term (current) use of oral hypoglycemic drugs
CPT/HCPCS: 87426; 99283

== ENCOUNTER 2021-12-14 21:41 | Outpatient (CLI) | payer OTHER, SELFPAY ==
[2021-12-14 21:55] LABS: Absolute Neutrophil Count 4.6 X10^3/uL (2.0-7.7); Basophil# 0.07 X10^3/uL; Basophil% 0.8 % (0-1); Eosinophils% 1.1 % (0-5); Hematocrit 47.5 % (37-47); Hemoglobin 16.3 g/dL (12.0-15.0); Lymphocyte % 38.7 % (19-41); Mean Corp Hgb Conc 34.3 g/dL (32-36); Mean Corpuscular Hgb 31.4 pg (27.0-32.0); Mean Corpuscular Volume 91.5 fL (81-99); Mean Platelet Vol. 13.1 fl (6.2-12.0); Monocyte% 9.7 % (0-10); NRBC Flagged by Analyzer 0 % (0-5); Neutrophil % 49.4 % (47-70); Platelet Count 245 K/mm3 (150-450); RBC Distribution Width CV 14.3 % (11.6-14.6); RBC Distribution Width SD 48.2 fl (35.1-43.9); Red Blood Count 5.19 M/mm3 (4.2-5.4); White Blood Count 9.3 K/mm3 (4.4-11.0)
[2021-12-14 22:15] LABS: ALB/GLOB Ratio 1.1 RATIO (0.9-2.4); AST(SGOT) 17 U/L (15-37); Alanine Aminotransfer ALT/SGPT 37 U/L (13-56); Albumin, Serum 4.1 g/dL (3.2-5.0); Alkaline Phosphatase 80 U/L (45-117); Anion Gap 10 (5-15); BUN 21 mg/dL (7-18); BUN/Creat Ratio 27.1 RATIO (10-20); Calcium,Total 9.5 mg/dL (8.5-10.1); Chloride 102 mmol/L (98-107); Cholesterol 302 mg/dL (200); Creatinine, Serum 0.78 mg/dL (0.55-1.02); EST Glomerular Filtration Rate 81 mL/min (>60); Est Glom Filt Rate - Afr Amer 98 mL/min (>60); Globulin 3.7 g/dL (2.2-4.2); Glucose 244 mg/dL (74-106); High Density Lipoprotein 31 mg/dL; Potassium 4.6 mmol/L (3.5-5.1); Protein, Total 7.8 g/dL (6.4-8.2); Sodium Level 135 mmol/L (136-145); Triglycerides 749 mg/dL
[2021-12-14 22:56] LABS: Digoxin Level 1.21 ng/mL (0.80-2.00)
== END 2021-12-14 23:59 | disposition home or self-care (01) ==
PROVIDERS: PCP Nurse Practitioner; Visit Provider Nurse Practitioner
DX: R06.02 Shortness of breath (principal); I50.9 Heart failure, unspecified; I11.0 Hypertensive heart disease with heart failure; I48.91 Unspecified atrial fibrillation; I48.92 Unspecified atrial flutter
CPT/HCPCS: 80053; 80061; 80162; 85025

== ENCOUNTER → 2022-12-21 | Outpatient (CLI) | payer OTHER, SELFPAY ==
[2022-12-21 21:43] LABS: Absolute Lymphocyte Count 3.87 X10^3/uL (0.83-4.51); Absolute Neutrophil Count 3.8 X10^3/uL (2.0-7.7); Basophil# 0.09 X10^3/uL; Eosinophil# 0.11 X10^3/uL; Eosinophils% 1.3 % (0-5); Hematocrit 48.1 % (37-47); Lymphocyte # 3.87 X10^3/ul (0.83-4.51); Lymphocyte % 44.4 % (19-41); Mean Corp Hgb Conc 33.3 g/dL (32-36); Mean Corpuscular Hgb 30.7 pg (27.0-32.0); Mean Corpuscular Volume 92.3 fL (81-99); Mean Platelet Vol. 12.7 fl (6.2-12.0); Monocyte% 9.2 % (0-10); NRBC Flagged by Analyzer 0 % (0-5); Neutrophil # 3.82 X10^3/uL (2.7-7.7); Neutrophil % 43.8 % (47-70); Platelet Count 231 K/mm3 (150-450); RBC Distribution Width CV 13.1 % (11.6-14.6); RBC Distribution Width SD 44.4 fl (35.1-43.9); Red Blood Count 5.21 M/mm3 (4.2-5.4); White Blood Count 8.7 K/mm3 (4.4-11.0)
[2022-12-21 22:16] LABS: ALB/GLOB Ratio 1.1 RATIO (0.9-2.4); AST(SGOT) 23 U/L (15-37); Alanine Aminotransfer ALT/SGPT 36 U/L (13-56); Alkaline Phosphatase 116 U/L (45-117); Anion Gap 7 (5-15); BUN 15 mg/dL (7-18); BUN/Creat Ratio 23.4 RATIO (10-20); Calcium,Total 9.3 mg/dL (8.5-10.1); Chloride 100 mmol/L (98-107); Cholesterol 306 mg/dL (200); Creatinine, Serum 0.64 mg/dL (0.55-1.02); EST Glomerular Filtration Rate 100 mL/min (>60); Est Glom Filt Rate - Afr Amer 121 mL/min (>60); Globulin 3.8 g/dL (2.2-4.2); Glucose 205 mg/dL (74-106); High Density Lipoprotein 30 mg/dL; Potassium 4.1 mmol/L (3.5-5.1); Protein, Total 7.8 g/dL (6.4-8.2); Sodium Level 133 mmol/L (136-145); Triglycerides 648 mg/dL
[2022-12-21 22:34] LABS: Hemoglobin A1c 10.8 % (3.8-5.6)
== END | disposition home or self-care (01) ==
PROVIDERS: PCP Nurse Practitioner; Visit Provider Nurse Practitioner
DX: E11.65 Type 2 diabetes mellitus with hyperglycemia (principal); I48.91 Unspecified atrial fibrillation; I48.92 Unspecified atrial flutter; I10 Essential (primary) hypertension
CPT/HCPCS: 80053; 80061; 83036; 85025

== ENCOUNTER → 2023-12-21 | Outpatient (CLI) | payer OTHER, SELFPAY ==
[2023-12-21 21:16] LABS: Absolute Neutrophil Count 4.4 X10^3/uL (2.0-7.7); Basophil# 0.08 X10^3/uL; Basophil% 0.9 % (0-1); Eosinophil# 0.09 X10^3/uL; Hematocrit 47.3 % (37-47); Hemoglobin 15.2 g/dL (12.0-15.0); Lymphocyte % 36.7 % (19-41); Mean Corp Hgb Conc 32.1 g/dL (32-36); Mean Corpuscular Hgb 30.3 pg (27.0-32.0); Mean Corpuscular Volume 94.4 fL (81-99); Mean Platelet Vol. 12.9 fl (6.2-12.0); Monocyte# 0.92 X10^3/uL; Monocyte% 10.6 % (0-10); NRBC Flagged by Analyzer 0 % (0-5); Neutrophil % 50.6 % (47-70); Platelet Count 226 K/mm3 (150-450); RBC Distribution Width CV 13.3 % (11.6-14.6); RBC Distribution Width SD 46.3 fl (35.1-43.9); Red Blood Count 5.01 M/mm3 (4.2-5.4); White Blood Count 8.7 K/mm3 (4.4-11.0)
[2023-12-21 21:42] LABS: AST(SGOT) 14 U/L (15-37); Alanine Aminotransfer ALT/SGPT 24 U/L (13-56); Albumin, Serum 3.8 g/dL (3.2-5.0); Alkaline Phosphatase 105 U/L (45-117); Anion Gap 8 (5-15); BUN 15 mg/dL (7-18); BUN/Creat Ratio 20.8 RATIO (10-20); Calcium,Total 9.2 mg/dL (8.5-10.1); Chloride 105 mmol/L (98-107); Cholesterol 268 mg/dL (200); Creatinine, Serum 0.72 mg/dL (0.55-1.02); EST Glomerular Filtration Rate 87 mL/min (>60); Est Glom Filt Rate - Afr Amer 106 mL/min (>60); Globulin 3.7 g/dL (2.2-4.2); Glucose 128 mg/dL (74-106); High Density Lipoprotein 34 mg/dL; Potassium 4.1 mmol/L (3.5-5.1); Protein, Total 7.5 g/dL (6.4-8.2); Sodium Level 137 mmol/L (136-145); Thyroid Stim Hormone (TSH) 1.15 uIU/mL (0.358-3.74); Triglycerides 348 mg/dL; Very Low Density Lipoprotein 70 mg/dL (5-40)
== END | disposition home or self-care (01) ==
PROVIDERS: PCP Nurse Practitioner; Referring Provider Nurse Practitioner; Visit Provider Nurse Practitioner
DX: R14.2 Eructation (principal); I11.0 Hypertensive heart disease with heart failure; I50.9 Heart failure, unspecified; I48.91 Unspecified atrial fibrillation; I48.92 Unspecified atrial flutter; E11.65 Type 2 diabetes mellitus with hyperglycemia; K21.9 Gastro-esophageal reflux disease without esophagitis
CPT/HCPCS: 80053; 80061; 84443; 85025

== ENCOUNTER → 2024-10-03 | Outpatient (CLI) | payer OTHER, SELFPAY | END | disposition home or self-care (01) | PROVIDERS: PCP Nurse Practitioner; Referring Provider Nurse Practitioner; Visit Provider Nurse Practitioner | DX: N30.90 Cystitis, unspecified without hematuria (principal); E86.1 Hypovolemia ==

== ENCOUNTER 2024-12-09 18:27 | Emergency (ER) | payer OTHER, SELFPAY ==
[2024-12-09] VITALS (7 sets, daily range): BP systolic 130–149; BP diastolic 56–85; PULSE 79–104; RESP 18–19; TEMP 36.8–37; O2SAT 91–98; BMI 36.6
[2024-12-09 18:59] LABS: Absolute Lymphocyte Count 2.99 X10^3/uL (0.83-4.51); Basophil# 0.09 X10^3/uL; Eosinophil# 0.09 X10^3/uL; Hematocrit 44.9 % (37-47); Hemoglobin 14.8 g/dL (12.0-15.0); Lymphocyte # 2.99 X10^3/ul (0.83-4.51); Lymphocyte % 32.8 % (19-41); Mean Corpuscular Hgb 29.9 pg (27.0-32.0); Mean Corpuscular Volume 90.7 fL (81-99); Mean Platelet Vol. 12.7 fl (6.2-12.0); Monocyte# 0.95 X10^3/uL; Monocyte% 10.4 % (0-10); NRBC Flagged by Analyzer 0 % (0-5); Neutrophil # 4.96 X10^3/uL (2.7-7.7); Neutrophil % 54.4 % (47-70); Platelet Count 218 K/mm3 (150-450); RBC Distribution Width CV 13.8 % (11.6-14.6); RBC Distribution Width SD 45.8 fl (35.1-43.9); Red Blood Count 4.95 M/mm3 (4.2-5.4); White Blood Count 9.1 K/mm3 (4.4-11.0)
[2024-12-09] MEDS: Lidocaine 1% /Epi 1:100 (20ml) 20 ML Vial 10 ML INFILT (19:25)
[2024-12-09 19:27] LABS: Anion Gap 12 (5-15); BUN 10 mg/dL (4-19); BUN/Creat Ratio 17.7 RATIO (10-20); Calcium,Total 9.4 mg/dL (7.6-11.0); Carbon Dioxide 19.6 mmol/L (21.0-32.0); Chloride 101 mmol/L (98-108); Creatinine, Serum 0.56 mg/dL (0.70-1.20); EST Glomerular Filtration Rate 103 (>60); Estimated Creatinine Clearance 121.87 ml/min (50-250); Glucose 345 mg/dL (70-99); Sodium Level 133 mmol/L (133-145)
[2024-12-09] MEDS: Vancomycin HCl 1,500 MG in 0.9% Normal Saline (500mL Bag) 500 ML 250 MG IV (19:36)
--- NOTE | 2024-12-09 19:48 | EX.ED.DYSGE1 ---
HPI <NENITA Garcia - Last Filed: 12/09/24 21:50> History of Present Illness Chief Complaint: Wound Narrative Narrative: Patient presenting today due to concerns for an abscess to the right side of her lower abdomen/pelvic wall that started last Sunday, she reports that it originally started as a boil that spontaneously erupted, the area then progressively became more erythematous and swollen on Sunday, prompting her to be seen by her PCP today. PCP noted that there was an abscess there and recommended she come into the emergency department for evaluation and possible admission. She has not been on any antibiotics for this. She does report a history of uncontrolled diabetes. [facility] <NENITA Garcia - Last Filed: 12/09/24 21:50> [facility] Medical History ESBL (extended spectrum beta-lactamase) producing bacteria infection Neuropathy Myocardial infarct GERD (gastroesophageal reflux disease) Diabetes type 2, uncontrolled Hypertension Pacemaker Cardiac defibrillator in place Home Medications ?Medication ?Instructions ?Recorded ?Last Taken ?Type cholecalciferol (vitamin D3) 25 1,000 unit PO DAILY 10/15/18 Unknown History mcg (1,000 unit) capsule omega-3 fatty acids 1,000 mg 2,000 mg PO DAILY 11/14/18 Unknown History capsule (Fish Oil Concentrate) aspirin 81 mg chewable tablet 81 mg PO DAILY PRN heart 12/06/20 Unknown History (Aspirin Childrens) blood sugar diagnostic (OneTouch #100 ea 12/21/23 Unknown Rx Ultra Test strips) dapagliflozin propanediol 10 mg 10 mg PO DAILY #90 tabs 12/21/23 Unknown Rx tablet (Farxiga) digoxin 125 mcg (0.125 mg) tablet 125 mcg PO DAILY #90 tabs 12/21/23 Unknown Rx furosemide 20 mg tablet 20 mg PO DAILY PRN Swelling #90 12/21/23 Unknown Rx tabs lancets 30 gauge (E-Z Ject Lancets) #100 ea 12/21/23 Unknown Rx losartan 50 mg tablet 50 mg PO DAILY #90 tabs 12/21/23 Unknown Rx metformin 850 mg tablet 850 mg PO BID #180 tabs 12/21/23 Unknown Rx metoprolol succinate 100 mg 100 mg PO DAILY #90 tabs 12/21/23 Unknown Rx tablet,extended release 24 hr nitroglycerin 0.4 mg sublingual 0.4 mg sublingual Q5-15M PRN chest 12/21/23 Unknown Rx tablet pain #30 tabs omeprazole 40 mg capsule,delayed 40 mg PO DAILY PRN GERD #90 caps 12/21/23 Unknown Rx release doxycycline hyclate 100 mg capsule 100 mg PO BID #20 caps 12/09/24 Unknown Rx Allergy/AdvReac Type Severity Reaction Status Date / Time Zhpzsyj-ZBS-CrT Reductase Allergy Intermediate cramps Verified 12/09/24 19:24 Inhibitor (Oatdfuz-Uob-Mxo Reductase Inhibitor) Family History Sister Breast cancer Diabetes Thyroid disorder Mother CVA (cerebral vascular accident) Diabetes Heart disease Myocardial infarction Father Heart disease Myocardial infarction Other CAD (coronary artery disease) Surgical History H/O tubal ligation H/O heart artery stent Social History Smoking Status: Never smoker ROS <NENITA Garcia - Last Filed: 12/09/24 21:50> ROS ED Constitutional Constitutional ED: Denies chills or fever(s) Cardiovascular Cardiovascular: Denies chest pain Respiratory/Chest Respiratory/Chest: Denies dyspnea Gastrointestinal Gastrointestinal: Denies abdominal pain, nausea or vomiting Musculoskeletal Musculoskeletal: Denies arthralgias or myalgias Integumentary Reports abscess Neurologic Neurologic: Denies weakness EXAM <NENITA Garcia - Last Filed: 12/09/24 21:50> Physical Exam Const Vital Signs: 12/09/24 18:28 12/09/24 18:31 12/09/24 19:31 Temperature 98.6 F 98.6 F 98.4 F Temperature Source Oral Oral Oral Pulse Rate 104 H 104 H 90 Respiratory Rate 18 18 19 H Blood Pressure 149/85 H 149/85 H 146/62 H Blood Pressure Mean 106 106 90 Pulse Ox 98 98 91 Oxygen Delivery Method Room Air Room Air Room Air 12/09/24 19:39 12/09/24 20:00 12/09/24 21:00 Temperature 98.4 F 98.4 F Temperature Source Oral Oral Pulse Rate 86 82 83 Respiratory Rate 18 18 18 Blood Pressure 146/62 H 146/62 H 130/67 H Blood Pressure Mean 90 90 88 Pulse Ox 95 98 95 Oxygen Delivery Method Room Air Room Air Room Air 12/09/24 21:00 12/09/24 21:53 Temperature 98.2 F Temperature Source Pulse Rate 85 79 Respiratory Rate 18 18 Blood Pressure 130/67 H 141/56 H Blood Pressure Mean 88 84 Pulse Ox 94 96 Oxygen Delivery Method Room Air Positive well nourished, well developed and no apparent distress General Appearance ED: well developed HEENT Reports normocephalic and head/scalp atraumatic Mouth ED: Yes moist mucous membranes normal Eyes PERRL and EOMs intact bilaterally Neck full ROM and supple Chest Wall inspection of chest normal Resp normal respiratory effort and clear to auscultation bilaterally Cardio regular rate and regular rhythm GI soft to palpation, non-tender, non-distended and no masses Back/Spine normal ROM and normal to inspection Extremity normal to inspection and full ROM Neuro oriented x3, CN's II-XII intact bilaterally, moves all extremities, no focal motor deficits and no sensory deficits noted Sensorium / Orientation: awake and alert Psych mental status grossly normal and thought process normal Skin Skin Narrative: Fluctuant and indurated abscess to the right side of the lower abdomen with surrounding erythema, no crepitus or significant warmth to the area. Some spreading erythema to the mid aspect of the mons pubis without tenderness <Dr. Nik Bundy MD - Last Filed: 12/10/24 00:50> Physical Exam Const Vital Signs: 12/09/24 18:28 12/09/24 18:31 12/09/24 19:31 Temperature 98.6 F 98.6 F 98.4 F Temperature Source Oral Oral Oral Pulse Rate 104 H 104 H 90 Respiratory Rate 18 18 19 H Blood Pressure 149/85 H 149/85 H 146/62 H Blood Pressure Mean 106 106 90 Pulse Ox 98 98 91 Oxygen Delivery Method Room Air Room Air Room Air 12/09/24 19:39 12/09/24 20:00 12/09/24 21:00 Temperature 98.4 F 98.4 F Temperature Source Oral Oral Pulse Rate 86 82 83 Respiratory Rate 18 18 18 Blood Pressure 146/62 H 146/62 H 130/67 H Blood Pressure Mean 90 90 88 Pulse Ox 95 98 95 Oxygen Delivery Method Room Air Room Air Room Air 12/09/24 21:00 12/09/24 21:53 Temperature 98.2 F Temperature Source Pulse Rate 85 79 Respiratory Rate 18 18 Blood Pressure 130/67 H 141/56 H Blood Pressure Mean 88 84 Pulse Ox 94 96 Oxygen Delivery Method Room Air [facility] <NENITA Garcia - Last Filed: 12/09/24 21:50> [facility] Narrative Medical decision making narrative: Patient presenting today due to a fluctuant and indurated abscess to her right pelvic wall that she has had over the past week. It initially started as a boil that erupted spontaneously and by Sunday the abscess began to form. She reports that the redness began to spread today. She did see her PCP who recommended she come here for evaluation. She is nontoxic-appearing. She does report a history of uncontrolled diabetes. She reports eating a burrito prior to arrival. Labs were obtained, her CBC is without leukocytosis, overall is unremarkable. Her glucose is elevated here at 345, she is not in DKA, anion gap is unremarkable. No kidney dysfunction. Patient given a dose of IV vancomycin here. The abscess was cleansed with iodine, it was anesthetized with 1% lidocaine with epinephrine. A small incision was made with a #11 blade. Locations were broken with curved hemostats. Small amount of purulent discharge was expelled from the wound, the area was then irrigated with saline and packed. The wound was then dressed. She will be placed on a course of doxycycline. I do not feel she requires admission at this time. We did speak with Dr. Castillo who recommends she call the office tomorrow to be seen later this week. She is to leave packing in place until she sees him, we will remove it on Sunday if she does not see him before the weekend. Strict return instructions were discussed with her. She is understanding. Recommended she try to keep her diabetes under control through a better diet. She will be discharged home in stable condition. Lab Data Attestation: I reviewed the patient's lab results. Labs: Laboratory Results - last 24 hr 12/09/24 18:53 WBC 9.1 RBC 4.95 Hgb 14.8 Hct 44.9 MCV 90.7 MCH 29.9 MCHC 33.0 RDW Std Deviation 45.8 H RDW Coeff of Cally 13.8 Plt Count 218 MPV 12.7 H Immature Gran % (Auto) 0.400 Neut % (Auto) 54.4 Lymph % (Auto) 32.8 [place] % (Auto) 10.4 H Eos % (Auto) 1.0 Baso % (Auto) 1.0 Absolute Neuts (auto) 5.0 Absolute Lymphs (auto) 2.99 Nucleated RBC % 0 Sodium 133 Potassium 4.0 Chloride 101 Carbon Dioxide 19.6 L Anion Gap 12 BUN 10 Creatinine 0.56 L Estim Creat Clear Calc 121.87 Est GFR (MDRD) Non-Af 103 BUN/Creatinine Ratio 17.7 Glucose 345 H Calcium 9.4 <Dr. Nik Bundy MD - Last Filed: 12/10/24 00:50> [facility] Lab Data Labs: Laboratory Results - last 24 hr 12/09/24 18:53 WBC 9.1 RBC 4.95 Hgb 14.8 Hct 44.9 MCV 90.7 MCH 29.9 MCHC 33.0 RDW Std Deviation 45.8 H RDW Coeff of Cally 13.8 Plt Count 218 MPV 12.7 H Immature Gran % (Auto) 0.400 Neut % (Auto) 54.4 Lymph % (Auto) 32.8 [place] % (Auto) 10.4 H Eos % (Auto) 1.0 Baso % (Auto) 1.0 Absolute Neuts (auto) 5.0 Absolute Lymphs (auto) 2.99 Nucleated RBC % 0 Sodium 133 Potassium 4.0 Chloride 101 Carbon Dioxide 19.6 L Anion Gap 12 BUN 10 Creatinine 0.56 L Estim Creat Clear Calc 121.87 Est GFR (MDRD) Non-Af 103 BUN/Creatinine Ratio 17.7 Glucose 345 H Calcium 9.4 Management Discussion w/another healthcare provider: Clinical Cytogeneticist Scientist (Surgery Dr. Castillo -- OK to follow up in office as outpt) Treatment and Re-Evaluation :: I have personally performed a face to face assessment of the patient and have reviewed the ERNESTO Note. I performed a substantive portion of the visit including all aspects of the following. My tovar findings include: History is tender swollen area right pelvic wall for the past week. Started draining and redness spreading to the pubic area today. No fevers, chills, systemic symptoms. She states that she knows her blood sugar is high and she states she ate a burrito just prior to coming here. Exam is well-appearing no distress. 5-6 cm indurated fluctuant mass consistent with an abscess in the right lower abdominal wall, there is some surrounding cellulitis which spreads to the mons pubis but there is no tenderness in this erythematous area nor is or subcutaneous emphysema. There is some superficial necrotic tissue just over the roof of the abscess but nowhere else. Medical Decison Making obtain some labs which we reviewed, her vital signs are normal, the labs are unremarkable except for her blood sugar which is a little elevated which we treated with some insulin, and clinically she is well-appearing and not septic. This does not seem to be deep or tracking. Therefore I do not think she needs a CT, and I think we can perform incision and drainage at the bedside, packet, and discussed with surgery for follow-up, treating her with antibiotics. She was given an IV dose of vancomycin, and the plan will be to discharge her on doxy to cover MRSA (Bactrim would possibly interact with her digoxin). Other additions or changes: I performed the procedure in conjunction with the physician captain's assistant who also performed the procedure. We deloculated the cavity thoroughly and irrigated it before packing, and it did not seem to track down toward the mons pubis. Procedures <Dr. Nik Bundy MD - Last Filed: 12/10/24 00:50> Other Procedures Procedure(s): Complex abscess incision and drainage, see above for details Discharge Plan Triage Chief Complaint: Wound ED Midlevel Provider: Sydnee Doran ED Provider: Nik Bundy Dx/Rx/DC Orders Clinical Impression: Abscess, Diabetes type 2, uncontrolled Instructions: ED Abscess Incision And Drainage Prescriptions: New doxycycline hyclate 100 mg capsule 100 mg PO BID Qty: 20 0RF No Action cholecalciferol (vitamin D3) 1,000 unit capsule 1,000 unit PO DAILY omega-3 fatty acids [Fish Oil Concentrate] 1,000 mg capsule 2,000 mg PO DAILY aspirin [Aspirin Childrens] 81 mg tablet,chewable 81 mg PO DAILY PRN (Reason: heart ) Farxiga 10 mg tablet 10 mg PO DAILY Qty: 90 3RF digoxin 125 mcg (0.125 mg) tablet 125 mcg PO DAILY Qty: 90 3RF furosemide 20 mg tablet 20 mg PO DAILY PRN (Reason: Swelling) Qty: 90 3RF losartan 50 mg tablet 50 mg PO DAILY Qty: 90 3RF metformin 850 mg tablet 850 mg PO BID Qty: 180 3RF metoprolol succinate 100 mg tablet extended release 24 hr 100 mg PO DAILY Qty: 90 3RF nitroglycerin 0.4 mg tablet, sublingual 0.4 mg SUBLINGUAL Q5-15M PRN (Reason: chest pain) Qty: 30 12RF Rx Instructions: until response; do not exceed 3 doses per episode omeprazole 40 mg capsule,delayed release(DR/EC) 40 mg PO DAILY PRN (Reason: GERD) Qty: 90 3RF (DME) OneTouch Ultra Test Strip See Rx Instructions .Route Qty: 100 12RF Rx Instructions: As directed (DME) lancets [E-Z Ject Lancets] 30 gauge misc See Rx Instructions .Route Qty: 100 3RF Rx Instructions: As directed Primary Care Provider: Nyla Garcia NP Referrals: Dony Castillo MD [Med Staff - Active Staff] - 3-5 Days Nyla Garcia NP, COUPON REDEMPTION CLERK-C [Primary Care Provider] - Activity Restrictions/Additional Instructions: Call Dr. Castillo's office tomorrow to make a follow-up appointment. If you cannot be seen before the weekend, pull the packing out on Sunday. Follow-up with your PCP if you are unable to follow-up with Dr. Castillo this week. Return for any worsening symptoms. Try to keep your sugar under control through a diabetic diet. Take antibiotic as directed. Print Language: Polish Disposition Disposition: Home, Self Care Discharge Date/Time: 12/09/24 22:38
[2024-12-09] MEDS: Insulin Lispro 100 UNIT/ML INSULN.PEN 16 UNIT SC (21:38)
[2024-12-09] MEDS: Ketorolac 15 MG/ML Vial IV (21:49)
[2024-12-10 11:05] LABS: Bedside Glucose 287 mg/dL (74-106)
== END 2024-12-09 22:38 | disposition home or self-care (01) ==
PROVIDERS: Physician Assistant; Emergency Provider Emergency Medicine; PCP Nurse Practitioner; Visit Provider Emergency Medicine
DX: L02.211 Cutaneous abscess of abdominal wall (principal); E11.40 Type 2 diabetes mellitus with diabetic neuropathy, unspecified; I10 Essential (primary) hypertension; K21.9 Gastro-esophageal reflux disease without esophagitis; Z95.810 Presence of automatic (implantable) cardiac defibrillator
CPT/HCPCS: 10060; 80048; 82962; 85025; 96365; 96366; 96375; 99284; A4216

== ENCOUNTER → 2024-12-12 | Outpatient (CLI) | payer OTHER, SELFPAY | END | disposition home or self-care (01) | PROVIDERS: PCP Nurse Practitioner; Referring Provider Nurse Practitioner; Visit Provider Nurse Practitioner | DX: L02.91 Cutaneous abscess, unspecified (principal) | CPT/HCPCS: 87070; 87077; 87186; 87205 ==

== ENCOUNTER → 2025-03-20 | Outpatient (CLI) | payer OTHER, SELFPAY ==
--- OUTSIDE RECORDS SUMMARY | 2025-03-20 21:28 | XMS RPT_ITS | CCD ---
Author Organization [facility] Inform ion Partnership [facility] Care Team Providers Care Cook Syrup Maker Name Role Phone Naima Kumar Primary Care Provider [phone] JOSÉ NAIMA L Primary Care Unavailable KUMAR, NAIMA L Referring Unavailable KUMAR, NAIMA L Primary Care Unavailable Kumar, Naima Referring Unavailable Kumar, Naima Primary Care Unavailable Kumar, Naima Attending Unavailable Kumar, Naima Referring Unavailable Kumar, Naima Primary Care Unavailable Kumar, Naima Attending Unavailable Kumar, Naima Primary Care Unavailable Nik Bundy Attending Unavailable Kumar, Naima Attending Unavailable Kumar, Naima Referring Unavailable Kumar, Naima Primary Care Unavailable Kumar RUBBER PRODUCTION MACHINE OPERATOR-C, Naima Primary Care Provider [phone] José RUBBER PRODUCTION MACHINE OPERATOR-C, Naima Attending Provider José RUBBER PRODUCTION MACHINE OPERATOR-C, Naima Referring Provider Dr. Nik Bundy MD Emergency Provider KUMAR, NAIMA Primary Care Unavailable KUMAR, NAIMA Primary Care Unavailable KUMAR, NAIMA Primary Care Unavailable KUMAR, NAIMA Primary Care Unavailable KUMAR, NAIMA Primary Care Unavailable Allergies Allergy Classification Reported Allergen(s) Allergy Type Date of Onset Reaction(s) Facility (1 source) rosuvastatin Drug Allergy 6 Other (See Comments) [facility] (4 sources) Mrofoic-Yye-Dyr Reductase Inhibitor Allergy to substance 2 [facility] (1 source) dapagliflozin Drug Allergy 5 [facility] (1 source) dulaglutide Drug Allergy 3 [facility] (1 source) SITagliptin Drug Allergy 5 [facility] (1 source) Twikafc-Pna-Foy Reductase Inhibitor Drug allergy (disorder) 5 [facility] (1 source) dapagliflozin Drug Allergy 5 yeast [facility] (1 source) SITagliptin Drug Allergy 5 Rash [facility] Medications Current Medications Medication Drug Class(es) Dates Sig (Normalized) Sig (Original) aspirin 81 mg chewable tablet (6 sources) Platelet Aggregation Inhibitor, Nonsteroidal Anti-inflammatory Drug Start: 12-06-2020 take 1 tablet by mouth once daily as needed Aspirin (Aspirin Childrens) 81 mg tablet,chewable Active 81 mg PO DAILY as needed for heart December 06, 2020 12:00am Start: 08-20-2017 take 1 tablet by madan th once daily aspirin EC 81 MG EC tablet Indications: Coronary artery disease involving huslia coronary artery of huslia heart without angina pectoris Take 1 tablet by mouth daily 30 tablet 3 08/20/2017 Active atorvastatin 40 mg oral tablet (1 source) HMG-CoA Reductase Inhibitor Start: 03-09-2020 take 1 tablet by mouth once daily atorvastatin (LIPITOR) 40 MG tablet Indications: Hyperlipidemia, unspecified hyperlipidemia type Take 1 tablet by mouth daily 90 tablet 1 03/09/2020 Active B Ivzkwgx-P-Smgbd Acid (B COMPLEX + C TR) TBCR (1 source) B Mzrhfsa-V-Gfqm c Acid (B COMPLEX + C TR) TBCR Take by mouth daily 0 Active cholecalciferol 0.025 mg oral capsule (6 sources) Vitamin D Start: 10-15-2018 take 1 capsule by mouth once daily Cholecalciferol (Vitamin D3) 1,000 unit capsule Active 1000 U PO DAILY October 15, 2018 1:00am take 1 capsule by mouth once phil ly Cholecalciferol (VITAMIN D3) 2000 UNITS CAPS Take 2,000 Units by mouth daily 0 Active doxycycline hyclate 100 mg oral capsule (4 sources) Tetracycline-class Drug Start: 10-06-2024 End: 12-09-2024 take 1 capsule by mouth twice daily Doxycycline Hyclate 100 mg capsule Active 100 mg PO TWICE A DAY December 09, 2024 12:00am glimepiride 4 mg oral tablet (1 source) Sulfonylurea Start: 12-12-2024 take 1 tablet by mouth once daily at breakfast Glimepiride 4 mg tablet Active 4 mg PO EVERY MORNING December 12, 2024 12:00am administer with breakfast [place]-3 Fatty Acids (Fish Oil Concentrate) 1,000 mg capsule (5 sources) Start: 11-14-2018 [place]-3 Fatty Acids (Fish Oil Concentrate) 1,000 mg capsule Active 2000 MG PO DAILY November 14, 2018 7:38pm Start: 11-14-2018 [place]-3 Fatty Acids (Fish Oil Concentrate) 1,000 mg capsule Active 2000 mg PO DAILY November 14, 2018 1:00am Start: 11-14-2018 [place]-3 Fatty Acids (Fish Oil Concentrate) 1,000 mg capsule Active 2000 MG PO DAILY November 14, 2018 1:00am pioglitazone 30 mg oral tablet (1 source) Peroxisome Proliferator Receptor alpha Agonist, Peroxisome Proliferator Receptor gamma Agonist, Thiazolidinedione Start: 12-12-2024 take 1 tablet by mouth once daily Pioglitazone 30 mg tablet Active 30 mg PO daily December 12, 2024 12:00am Semaglutide (OZEMPIC, 0.25 OR 0.5 MG/DOSE, SC) (1 source) Semaglutide (OZEMPIC, 0.25 OR 0.5 MG/DOSE, SC) Inject into the skin once a week 0 Active 1000 ml sodium chloride 9 mg/ml injection (3 sources) Start: 08-16-2021 0.9 % sodium chloride infusion Start: 08-16-2021 sodium chlorid e flush 0.9 % injection 5-40 mL Completed/Discontinued Medications Medication Drug Class(es) Dates Sig (Normalized) Sig (Original) amoxicillin 875 mg oral tablet (11 sources) Penicillin-class Antibacterial Start: 12-06-2020 End: 12-14-2021 take 1 tablet by mouth twice daily Amoxicillin 875 mg tablet Discontinued 875 mg PO TWICE A DAY July 18, 2021 12:00am December 14, 2021 6:23pm apixaban 5 mg oral tablet (5 sources) Factor Xa Inhibitor Start: 04-15-2020 End: 12-06-2020 take 1 tablet by mouth twice daily Apixaban (Eliquis) 5 mg tablet Discontinued 5 mg PO TWICE A DAY April 15, 2020 12:00am December 06, 2020 5:55pm cefuroxime 500 mg oral tablet (10 sources) Cephalosporin Antibacterial Start: 01-20-2019 End: 12-11-2019 take 1 tablet by mouth twice daily Cefuroxime Axetil 500 mg tablet Discontinued 500 mg PO TWICE A DAY August 01, 2019 4:07pm December 11, 2019 5:26pm ciprofloxacin 500 mg oral tablet (2 sources) Quinolone Antimicrobial Start: 10-03-2024 End: 12-09-2024 take 1 tablet by mouth twice daily Ciprofloxacin Hcl (Cipro) 500 mg tablet Discontinued 500 mg PO TWICE A DAY October 03, 2024 1:00am December 09, 2024 7:22pm dapagliflozin 10 mg oral tablet (20 sources) Sodium-Glucose Cotransporter 2 Inhibitor Start: 10-15-2018 End: 12-12-2024 take 1 tablet by mouth once daily Dapagliflozin Propanediol (Farxiga) 10 mg tablet Discontinued 10 mg PO DAILY December 21, 2023 3:11pm December 12, 2024 3:20pm digoxin 0.125 mg oral tablet (20 sources) Cardiac Glycoside Start: 03-09-2020 End: 12-21-2023 take 1 tablet by mouth once daily Digoxin 125 mcg (0.125 mg) tablet Discontinued 125 ug PO DAILY December 21, 2022 7:21pm December 21, 2023 3:15pm Start: 10-15-2018 End: 12-06-2020 take 0.125 mg by mouth once daily Digoxin 125 mcg tablet Discontinued 0.125 mg PO DAILY October 15, 2018 5:23pm December 06, 2020 5:59pm Start: 10-15-2018 End: 12-06-2020 take 0.125 mg by mouth once daily Digoxin Discontinued 0.125 MG PO DAILY October 15, 2018 5:23pm December 06, 2020 5:59pm Dulaglutide (8 sources) GLP-1 Receptor Agonist Start: 02-04-2024 End: 02-27-2024 Dulaglutide 4.5 mg/0.5 mL pen injector Discontinued 4.5 mg SC EVERY WEEK 2.5 February 04, 2024 12:00am February 27, 2024 4:09pm Start: 12-21-2023 End: 02-04-2024 Dulaglutide 3 mg/0.5 mL pen injector Discontinued 3 mg SC EVERY WEEK 2.5 December 21, 2023 12:00am February 04, 2024 3:54pm Start: 12-21-2023 Dulaglutide Ac tive 3 MG SC EVERY WEEK 2.5 December 21, 2023 12:00am Start: 01-16-2023 End: 03-06-2023 Dulaglutide (Trulicity) 1.5 mg/0.5 mL pen injector Discontinued 1.5 mg SC EVERY WEEK 2.5 January 16, 2023 12:00am March 06, 2023 3:23pm ezetimibe 10 mg oral tablet (3 sources) Dietary Cholesterol Absorption Inhibitor Start: 12-24-2023 End: 12-09-2024 take 1 tablet by mouth once daily Ezetimibe 10 mg tablet Discontinued 10 mg PO DAILY December 24, 2023 12:00am December 09, 2024 7:22pm fluconazole 150 mg oral tablet (5 sources) Azole Antifungal Start: 01-20-2019 End: 01-21-2019 Fluconazole 150 mg tablet Discontinued 150 mg PO Every 3 Days 2 January 20, 2019 12:00am January 20, 2019 12:00am January 21, 2019 12:07am furosemide 20 mg oral tablet (14 sources) Loop Diuretic Start: 10-15-2018 End: 12-21-2023 take 1 tablet by mouth once daily as needed Furosemide 20 mg tablet Discontinued 20 mg PO DAILY as needed for Swelling December 14, 2021 6:43pm December 21, 2023 3:15pm isopropyl alcohol 0.7 ml/ml medicated pad (3 sources) Start: 12-21-2023 End: 12-09-2024 Alcohol Swabs (Bd Alcohol Swabs) pads, medicated Discontinued 1 NMA TOPICAL THREE TIMES A DAY December 21, 2023 12:00am December 09, 2024 7:23pm Start: 12-21-2023 Alcohol Swabs (Bd Alcohol Swabs) pads, medicated Active 1 PAD TOPICAL THREE TIMES A DAY December 21, 2023 12:00am losartan potassium 50 mg oral tablet (20 sources) Angiotensin 2 Receptor Jackelyn Start: 10-15-2018 End: 12-21-2023 take 1 tablet by mouth once daily Losartan 50 mg tablet Discontinued 50 mg PO DAILY December 21, 2022 7:21pm December 21, 2023 3:15pm metFORMIN hydrochloride 850 mg oral tablet (20 sources) Biguanide Start: 07-18-2021 End: 12-21-2023 take 1 tablet by mouth twice daily Metformin 850 mg tablet Discontinued 850 mg PO TWICE A DAY 180 December 21, 2022 7:20pm December 21, 2023 3:15pm Start: 10-15-2018 End: 12-14-2021 take 1 tablet by mouth twice daily Metformin 500 mg tablet Discontinued 500 mg PO TWICE A DAY 180 December 06, 2020 5:58pm December 14, 2021 6:23pm Start: 07-22-2018 take 2 tablets by mo [facility] twice daily at mealtime metFORMIN (GLUCOPHAGE XR) 500 MG extended release tablet Indications: Type 2 diabetes mellitus without complication, without long-term current use of insulin (HCC) Take 2 tablets by mouth 2 times daily (with meals) 360 tablet 0 07/22/2018 Active 24 hr metoprolol succinate 100 mg extended release oral tablet (20 sources) beta-Adrenergic Jackelyn Start: 05-18-2020 take 1 tablet by mouth twice daily metoprolol succinate (TOPROL XL) 100 MG extended release tablet Indications: Atrial fibrillation, unspecified type (HCC) Take 1 tablet by mouth 2 times daily 180 tablet 3 05/18/2020 Active Start: 10-15-2018 End: 12-21-2023 take 1 tablet by mouth once daily Metoprolol Succinate 100 mg tablet extended release 24 hr Discontinued 100 mg PO DAILY December 21, 2022 7:20pm December 21, 2023 3:15pm nitroglycerin 0.4 mg sublingual tablet (19 sources) Nitrate Vasodilator Start: 10-31-2018 End: 12-21-2023 Nitroglycerin 0.4 mg tablet, sublingual Discontinued 0.4 mg SL every 5 to 15 minutes as needed for chest pain December 14, 2021 6:43pm December 21, 2023 3:15pm until response; do not exceed 3 doses per episode omeprazole 40 mg delayed release oral capsule (20 sources) Proton Pump Inhibitor Start: 10-15-2018 End: 12-21-2023 take 1 capsule by mouth once daily as needed for gastroesophageal reflux disease Omeprazole 40 mg capsule,delayed release(DR/EC) Discontinued 40 mg PO DAILY as needed for GERD December 14, 2021 6:43pm December 21, 2023 3:15pm predniSONE 20 mg oral tablet (2 sources) Start: 04-29-2024 End: 10-03-2024 take 2 tablets by mouth once daily Prednisone 20 mg tablet Discontinued 40 mg PO DAILY April 29, 2024 12:00am October 03, 2024 5:57pm 1 mg dose 1.5 ml semaglutide 1.34 mg/ml pen injector (9 sources) Start: 03-06-2023 End: 12-21-2023 Semaglutide Discontinued 2 MG SC EVERY WEEK 7.5 December 21, 2023 3:21pm December 21, 2023 6:30pm Start: 03-06-2023 End: 05-25-2023 Semaglutide Discontinued 1 M G SC EVERY WEEK 3.75 March 06, 2023 12:00am May 25, 2023 4:15pm Start: 07-18-2021 End: 12-14-2021 Semaglutide (Ozempic) 0.25 m g or 0.5 mg(2 mg/1.5 mL) pen injector Discontinued 0.25 mg SC EVERY WEEK July 18, 2021 12:00am December 14, 2021 6:24pm for 4 doses Semaglutide (7 sources) Start: 01-15-2023 End: 01-16-2023 Semaglutide 0.25 mg or 0.5 m g (2 mg/3 mL) pen injector Discontinued 0.5 mg SC EVERY WEEK 4 January 15, 2023 3:33pm January 16, 2023 2:45pm for 4 weeks Start: 01-15-2023 End: 01-16-2023 Semaglutide Discontinued 0.5 MG SC EVERY WEEK 4 January 15, 2023 3:33pm January 16, 2023 2:45pm for 4 weeks Start: 12-26-2022 End: 01-15-2023 Semaglutide 0.25 mg or 0.5 m g (2 mg/3 mL) pen injector Discontinued 0.25 mg SC EVERY WEEK 2 December 26, 2022 12:00am January 15, 2023 3:34pm for 4 weeks Start: 12-26-2022 End: 01-15-2023 Semaglutide Discontinued 0.2 5 MG SC EVERY WEEK 2 December 26, 2022 12:00am January 15, 2023 3:34pm for 4 weeks Start: 12-26-2022 Semaglutide Ac tive 0.25 MG SC EVERY WEEK 2 December 26, 2022 12:00am for 4 weeks Semaglutide 1 mg/dose (2 mg/ 1.5 mL) pen injector (8 sources) Start: 12-21-2023 End: 12-21-2023 Semaglutide 1 mg/dose (2 mg/ 1.5 mL) pen injector Discontinued 2 mg SC EVERY WEEK 7.5 December 21, 2023 3:21pm December 21, 2023 6:30pm Start: 05-25-2023 End: 12-21-2023 Semaglutide 1 mg/dose (2 mg/ 1.5 mL) pen injector Discontinued 2 mg SC EVERY WEEK 7.5 May 25, 2023 4:15pm December 21, 2023 3:21pm Start: 03-06-2023 End: 05-25-2023 Semaglutide 1 mg/dose (2 mg/ 1.5 mL) pen injector Discontinued 2 mg SC EVERY WEEK 7.5 March 06, 2023 12:00am May 25, 2023 4:15pm Start: 03-06-2023 End: 05-25-2023 Semaglutide 1 mg/dose (2 mg/ 1.5 mL) pen injector Discontinued 1 mg SC EVERY WEEK 3.75 March 06, 2023 12:00am May 25, 2023 4:15pm SITagliptin 100 mg oral tablet (5 sources) Dipeptidyl Peptidase 4 Inhibitor Start: 10-15-2018 End: 08-01-2019 take 1 tablet by mouth once daily Sitagliptin Phosphate (Januvia) 100 mg tablet Discontinued 100 mg PO DAILY October 15, 2018 1:00am August 01, 2019 4:07pm vancomycin 1000 MG IVPB in 250 mL NS add-vantage (1 source) Start: 08-16-2021 End: 08-16-2021 vancomycin 1000 MG IVPB in 250 mL NS add-vantage vitamin e 180 mg oral capsule (5 sources) Start: 10-15-2018 End: 12-09-2024 Vitamin E (Dl, Acetate) 400 unit capsule Discontinued 180 U PO DAILY October 15, 2018 1:00am December 09, 2024 7:23pm Start: 10-15-2018 take 180 [IU] by madan th once daily Vitamin E (Dl, Acetate) Active 180 UNIT PO DAILY October 15, 2018 1:00am Problems Active Problems Problem Classification Problem Date Documented Da te Episodic/Chronic Acute myocardial infarction (1 source) Myocardial infarction; Translations: [Acute myocardial infarction, unspecified] 06-16-2015 Chronic Cardiac dysrhythmias (15 sources) Fluttering heart; Translations: [Other specified cardiac arrhythmias] 03-20-2020 Chronic Conduction disorders (9 sources) Cardiac defibrillator in situ; Translations: [Presence of automatic (implantable) cardiac defibrillator] Onset: 6 Resolved: 7 10-06-2019 Chronic Congestive heart failure; nonhypertensive (7 sources) Chronic systolic heart failure; Translations: [Chronic systolic (congestive) heart failure] Chronic Coronary atherosclerosis and other heart disease (7 sources) Coronary arteriosclerosis; Translations: [Atherosclerotic heart disease of huslia coronary artery without angina pectoris] Onset: 0 06-16-2015 Chronic Diabetes mellitus with complications (5 sources) Type II diabetes mellitus uncontrolled; Translations: [Uncontrolled type 2 diabetes mellitus] 12-07-2020 Chronic Diabetes mellitus without complication (2 sources) Diabetes mellitus; Translations: [Type 2 diabetes mellitus without complications] Onset: 6 06-16-2015 Chronic Diabetes mellitus without complication (2 sources) Hyperglycemia; Translations: [Hyperglycemia, unspecified] 10-03-2024 Episodic Disorders of lipid metabolism (1 source) Hyperlipidemia; Translations: [Hyperlipidemia, unspecified] 06-16-2015 Chronic E Codes: Adverse effects of medical drugs (2 sources) Adverse reaction; Translations: [Adverse effect of unspecified topical agent, initial encounter] 04-30-2024 Episodic Esophageal disorders (6 sources) Gastroesophageal reflux disease; Translations: [Gastro-esophageal reflux disease without esophagitis] 06-16-2015 Chronic Essential hypertension (6 sources) Hypertensive disorder; Translations: [Essential (primary) hypertension] 06-16-2015 Chronic Fluid and electrolyte disorders (2 sources) Hypovolemia; Translations: [Hypovolemia] 10-03-2024 Episodic Malaise and fatigue (5 sources) Fatigue; Translations: [Other fatigue] 03-20-2020 Episodic Mycoses (2 sources) Candidal vulvovaginitis; Translations: [Candidal vulvovaginitis] 12-09-2024 Episodic Osteoarthritis (4 sources) Osteoarthritis of hip; Translations: [Osteoarthritis of hip, unspecified] 12-21-2022 Chronic Other and unspecified benign neoplasm (1 source) Leiomyoma; Translations: [Benign neoplasm of connective and other soft tissue, unspecified] 06-16-2015 Episodic Other bone disease and musculoskeletal deformities (3 sources) Bone cyst of left foot; Translations: [Other cyst of bone, left ankle and foot] 12-21-2023 Episodic Other circulatory disease (2 sources) Orthostatic hypotension; Translations: [Orthostatic hypotension] 10-03-2024 Episodic Other gastrointestinal disorders (3 sources) Burping; Translations: [Eructation] 12-21-2023 Episodic Other lower respiratory disease (10 sources) Dyspnea; Translations: [Shortness of breath] 05-20-2020 Episodic Other nervous system disorders (3 sources) Neuropathy; Translations: [Polyneuropathy, unspecified] 03-06-2023 Chronic Comment on above: olower extremities Other nervous system disorders (2 sources) Pain of skin; Translations: [Other disturbances of skin sensation] 04-30-2024 Episodic Other non-traumatic joint disorders (4 sources) Hip pain; Translations: [Pain in right hip] 12-21-2022 Episodic Other nutritional; endocrine; and metabolic disorders (1 source) Morbid obesity; Translations: [Morbid (severe) obesity due to excess calories] 06-16-2015 Chronic Other nutritional; endocrine; and metabolic disorders (1 source) Metabolic syndrome X; Translations: [Metabolic syndrome] 06-16-2015 Chronic Other nutritional; endocrine; and metabolic disorders (1 source) Weight loss; Translations: [Abnormal weight loss] 01-15-2023 Episodic Other nutritional; endocrine; and metabolic disorders (2 sources) Weight increased; Translations: [Abnormal weight gain] 02-28-2024 Episodic Other nutritional; endocrine; and metabolic disorders (2 sources) Weight decreased; Translations: [Abnormal weight loss] 01-15-2023 Episodic Other upper respiratory infections (5 sources) Acute maxillary sinusitis; Translations: [Acute maxillary sinusitis, unspecified] 03-20-2020 Episodic Otitis media and related conditions (5 sources) Otitis media; Translations: [Otitis media, unspecified, left ear] 12-07-2020 Episodic Residual codes; unclassified (1 source) Sleep apnea; Translations: [Sleep apnea, unspecified] 06-24-2015 Chronic Residual codes; unclassified (1 source) Menopause present; Translations: [Asymptomatic menopausal state] 06-16-2015 Episodic Skin and subcutaneous tissue infections (5 sources) Cutaneous abscess, unspecified; Translations: [Furuncle of trunk] Onset: 5 12-09-2024 Episodic Urinary tract infections (3 sources) Cystitis, unspecified without hematuria; Translations: [Cystitis] Onset: 5 10-03-2024 Episodic Viral infection (5 sources) Disease caused by 2019-nCoV; Translations: [COVID-19] 09-28-2021 Episodic Past or Other Problems Problem Classification Problem Date Documented Da te Episodic/Chronic Coronary atherosclerosis and other heart disease (1 source) Stented coronary artery; Translations: [Presence of coronary angioplasty implant and graft] Onset: 07-20-2017 07-20-2017 Episodic Other gastrointestinal disorders (1 source) Eructation; Translations: [Eructation] Onset: 12-26-2023 Episodic Results Test Name Value Interpretation Reference Range Facility Wound Cultureon 12-15-2024 DEEP SURGICAL WOUND Copy of report sent to Infection Control Printer [id number] 12/15/24 [id number] [address]BEICK. ESBL Escherichia coli Amount Growth 1+ MARKER ESBL producing OrganismA MARKER ESBL producing OrganismA Amount Growth 2+ Streptococcus agalactiae (B) Ampicillin Islt HERNANDO >=32 Ampicillin+Sulbac Islt HERNANDO >=32 R Cefepime Islt HERNANDO 0.5 cefTRIAXone Islt HERNANDO 32 R Ciprofloxacin Islt HERNANDO >=4 R B-Lactamase Extended Susc Islt POS Gentamicin Islt HERNANDO <=1 S levoFLOXacin Islt HERNANDO >=8 R Meropenem Islt HERNANDO <=0.25 S Pip+Tazo Islt HERNANDO 8 S TMP SMX Islt HERNANDO <=20 S Streptococcus agalactiae (B): REACTION Ampicillin Islt HERNANDO <=0.25 S cefTRIAXone Islt HERNANDO <=0.12 S Clindamycin Islt HERNANDO >=1 Clindamycin.induced Susc Islt NEG Linezolid Islt HERNANDO <=2 S Vancomycin Islt HERNANDO 0.5 S Normal [facility] Comment on above: Performed By: #### M 100.3000, M100.2000 #### [facility] [address] [place], [address] Gram Stainon 12-13-2024 GS DEEP SURGICAL WOUND Gram Stain 2+ White Blood Cells 3+ Gram positive cocci No Epithelial cells Normal [facility] Comment on above: Performed By: #### L 100.0100, L500.2500 #### [facility] [address] [place], [address] Gram stainOrdered By: Naima cantor on 12-12-2024 Microscopic observation Gram stain Nom (Unsp spec) [facility] Routine wound cultureOrdered By: Naima Kumar on 12-12-2024 Wound Culture ESBL Escherichia coli Abnormal [facility] Wound Culture Streptococcus agalactiae (B) Abnormal [facility] Bedside Glucoseon 12-10-2024 FINGERSTICK GLU 287 mg/dL High 74-106 [facility] Comment on above: Result Comment: [place] [facility] OF PATIENT CARE PER NURSING PROTOCOL Performed By: #### L 501.080 #### [facility] [address] [place], [address] Absolute neutrophil countOrd ered By: Sydnee Doran on 12-09-2024 Neutrophils (Bld) [#/Vol] 5.0 10*3/uL 2.0-7.7 [facility] Anion gap in Serum or Plasma Ordered By: Sydnee Doran on 12-09-2024 Anion gap [Moles/Vol] 12 mmol/L - [facility] BUN/creatinine ratioOrdered By: Sydnee Doran on 12-09-2024 Urea nitrogen/Creatinine [Mass ratio] 17.7 mg/mg - [facility] Basic Metabolic Profile (BMP )on 12-09-2024 BUN/CRE 17.7 RATIO Normal - [facility] Comment on above: Performed By: #### L 100.0100, L500.2500 #### [facility] [address] [place], [address] Calcium [Mass/Vol] 9.4 mg/dL Normal 7.6-11.0 [facility] Comment on above: Performed By: #### L 100.0100, L500.2500 #### [facility] [address] [place], [address] Chloride [Moles/Vol] 101 mmol/L Normal 98-108 [facility] Comment on above: Performed By: #### L 100.0100, L500.2500 #### [facility] [address] [place], [address] CO2 [Moles/Vol] 19.6 mmol/L Low 21.0-32.0 [facility] Comment on above: Performed By: #### L 100.0100, L500.2500 #### [facility] [address] [place], [address] Creatinine [Mass/Vol] 0.56 mg/dL Low 0.70-1.20 [facility] Comment on above: Performed By: #### L 100.0100, L500.2500 #### [facility] [address] [place], [address] ECRCL 121.87 ml/min Normal 50-250 [facility] Comment on above: Performed By: #### L 100.0100, L500.2500 #### [facility] [address] [place], [address] GAP 12 Normal 5-15 [facility] Comment on above: Performed By: #### L 100.0100, L500.2500 #### [facility] [address] [place], [address] GFR/1.73 sq M.predicted among non-blacks MDRD (S/P/Bld) [Vol rate/Area] 103 mL/min/{1.73_m2} Normal >60 [facility] Comment on above: Result Comment: mL/m in/1.73m2 CKD-EPI Creatinine Equation (2020) Performed By: #### L 100.0100, L500.2500 #### [facility] [address] [place], [address] Glucose [Mass/Vol] 345 mg/dL High 70-99 [facility] Comment on above: Performed By: #### L 100.0100, L500.2500 #### [facility] [address] [place], [address] Potassium [Moles/Vol] 4.0 mmol/L Normal 3.3-5.1 [facility] [facility] Comment on above: Performed By: #### L 100.0100, L500.2500 #### [facility] [address] [place], [address] Sodium [Moles/Vol] 133 mmol/L Normal 133-145 [facility] Comment on above: Performed By: #### L 100.0100, L500.2500 #### [facility] [address] [place], [address] Urea nitrogen [Mass/Vol] 10 mg/dL Normal 4-19 [facility] Comment on above: Performed By: #### L 100.0100, L500.2500 #### [facility] [address] [place], [address] Basophil percentageOrdered B y: Sydnee Doran on 12-09-2024 Basophils/100 WBC (Bld) 1.0 % 0-1 [facility] CBC W/Diff, Automatedon 11-22 Absolute Lymph 2.99 X10 3/uL Normal 0.83-4.51 [facility] Comment on above: Performed By: #### L 100.0100, L500.2500 #### [facility] [address] [place], [address] Absolute Neut 5.0 X10 3/uL Normal 2.0-7.7 [facility] Comment on above: Performed By: #### L 100.0100, L500.2500 #### [facility] [address] [place], [address] Basophils/100 WBC (Bld) 1.0 % Normal 0-1 [facility] Comment on above: Performed By: #### L 100.0100, L500.2500 #### [facility] [address] [place], [address] Eosinophils/100 WBC (Bld) 1.0 % Normal 0-5 [facility] Comment on above: Performed By: #### L 100.0100, L500.2500 #### [facility] [address] [place], [address] Erythrocyte distribution width (RBC) [Ratio] 13.8 % Normal 11.6-14.6 [facility] Comment on above: Performed By: #### L 100.0100, L500.2500 #### [facility] [address] [place], [address] Hematocrit (Bld) [Volume fraction] 44.9 % Normal 37-47 [facility] Comment on above: Performed By: #### L 100.0100, L500.2500 #### [facility] [address] [place], [address] Hemoglobin (Bld) [Mass/Vol] 14.8 g/dL Normal 12.0-15.0 [facility] Comment on above: Performed By: #### L 100.0100, L500.2500 #### [facility] [address] [place], [address] IG% 0.400 Normal 0.0-0.9 [facility] Comment on above: Result Comment: IG% - Immature Granulocytes (promyelocytes, myelocytes and metamyelocytes) > 1% indicates that a LEFT SHIFT is Present. Performed By: #### L 100.0100, L500.2500 #### [facility] [address] [place], [address] Lymphocytes/100 WBC (Bld) 32.8 % Normal 19-41 [facility] Comment on above: Performed By: #### L 100.0100, L500.2500 #### [facility] [address] [place], [address] MCH (RBC) [Entitic mass] 29.9 pg Normal 27.0-32.0 [facility] Comment on above: Performed By: #### L 100.0100, L500.2500 #### [facility] [address] [place], [address] MCHC (RBC) [Mass/Vol] 33.0 g/dL Normal 32-36 [facility] Comment on above: Performed By: #### L 100.0100, L500.2500 #### [facility] [address] [place], [address] MCV (RBC) [Entitic vol] 90.7 fL Normal 81-99 [facility] Comment on above: Performed By: #### L 100.0100, L500.2500 #### [facility] [address] [place], [address] Monocytes/100 WBC (Bld) 10.4 % High 0-10 [facility] Comment on above: Performed By: #### L 100.0100, L500.2500 #### [facility] [address] [place], [address] Neutrophils/100 WBC (Bld) 54.4 % Normal 47-70 [facility] Comment on above: Performed By: #### L 100.0100, L500.2500 #### [facility] [address] [place], [address] Nucleated RBC (Bld) [#/Vol] 0 10*3/uL Normal 0-5 [facility] Comment on above: Performed By: #### L 100.0100, L500.2500 #### [facility] [address] [place], [address] Platelet mean volume (Bld) [Entitic vol] 12.7 fL High 6.2-12.0 [facility] Comment on above: Performed By: #### L 100.0100, L500.2500 #### [facility] [address] [place], [address] Platelets (Bld) [#/Vol] 218 10*3/uL Normal 150-450 [facility] Comment on above: Performed By: #### L 100.0100, L500.2500 #### [facility] [address] [place], [address] RBC (Bld) [#/Vol] 4.95 10*6/uL Normal 4.2-5.4 [facility] Comment on above: Performed By: #### L 100.0100, L500.2500 #### [facility] [address] [place], [address] RDW SD 45.8 fl High 35.1-43.9 [facility] Comment on above: Performed By: #### L 100.0100, L500.2500 #### [facility] [address] [place], [address] WBC (Bld) [#/Vol] 9.1 10*3/uL Normal 4.4-11.0 [facility] Comment on above: Performed By: #### L 100.0100, L500.2500 #### [facility] [address] [place], [address] Carbon dioxide, total [Moles /volume] in Central venous bloodOrdered By: Sydnee Doran on 12-09-2024 CO2 [Moles/Vol] 19.6 mmol/L Low 21.0-32.0 [facility] Chloride assayOrdered By: Mariya Doran on 12-09-2024 Chloride [Moles/Vol] 101 mmol/L 98-108 [facility] Emergency Department Summary on 12-09-2024 Emergency Department Summary [facility] Medical Records Department [address] [place] [address] Emergency Department Summary 12/09/24 MR#: [id number] Acct: [id number] Name: ERNESTINA HUSTON Rep #: [id number] : 1960 64 From: Sydnee GUTIERRES PCP: ESTEBAN Castellanos Status:DEP ER Location: ED HPI History of Present Illness Chief Complaint: Wound Narrative Narrative: Patient presenting today due to concerns for an abscess to the right side of her lower abdomen/pelvic wall that started last Sunday, she reports that it originally started as a boil that spontaneously erupted, the area then progressively became more erythematous and swollen on Sunday, prompting her to be seen by her PCP today. PCP noted that there was an abscess there and recommended she come into the emergency department for evaluation and possible admission. She has not been on any antibiotics for this. She does report a history of uncontrolled diabetes. [facility] Medical History ESBL (extended spectrum beta-lactamase) producing bacteria infection Neuropathy Myocardial infarct GERD (gastroesophageal reflux disease) Diabetes type 2, uncontrolled Hypertension Pacemaker Cardiac defibrillator in place Home Medications ???Medication ???Instructions ???Recorded ???Last Taken ???Type cholecalciferol (vitamin D3) 25 1,000 unit PO DAILY 10/15/18 Unkno wn History mcg (1,000 unit) capsule omega-3 fatty acids 1,000 mg 2,000 mg PO DAILY 11/14/18 Unknown History capsule (Fish Oil Concentrate) aspirin 81 mg chewable tablet 81 mg PO DAILY PRN heart 12/06/20 Unknown History (Aspirin Childrens) blood sugar diagnostic (OneTouch #100 ea 12/21/23 Unknown Rx Ultra Test strips) dapagliflozin propanediol 10 mg 10 mg PO DAILY #90 tabs 12/21/23 U nknown Rx tablet (Farxiga) digoxin 125 mcg (0.125 mg) tablet 125 mcg PO DAILY #90 tabs 4 Unknown Rx furosemide 20 mg tablet 20 mg PO DAILY PRN Swelling #90 Unknown Rx tabs lancets 30 gauge (E-Z Ject Lancets) #100 ea 12/21/23 Unknown Rx losartan 50 mg tablet 50 mg PO DAILY #90 tabs 12/21/23 U nknown Rx metformin 850 mg tablet 850 mg PO BID #180 tabs 12/21/23 U nknown Rx metoprolol succinate 100 mg 100 mg PO DAILY #90 tabs 12/21/23 Unknown Rx tablet,extended release 24 hr nitroglycerin 0.4 mg sublingual 0.4 mg sublingual Q5-15M PRN chest 12/21/23 Unknown Rx tablet pain #30 tabs omeprazole 40 mg capsule,delayed 40 mg PO DAILY PRN GERD #90 caps 0 12/21/23 Unknown Rx release doxycycline hyclate 100 mg capsule 100 mg PO BID #20 caps 12/09/24 Unknown Rx Allergy/AdvReac Type Severity Reaction Status Date / Time Ffwywxe-DJZ-RqV Reductase Allergy Intermediate cramps Verified 12/09/24 19:24 Inhibitor (Xocmuqj-Tzr-Rlr Reductase Inhibitor) Family History Sister Breast cancer Diabetes Thyroid disorder Mother CVA (cerebral vascular accident) Diabetes Heart disease Myocardial infarction Father Heart disease Myocardial infarction Other CAD (coronary artery disease) Surgical History H/O tubal ligation H/O heart artery stent Social History Smoking Status: Never smoker ROS ROS ED Constitutional Constitutional ED: Denies chills or fever(s) Cardiovascular Cardiovascular: Denies chest pain Respiratory/Chest Respiratory/Chest: Denies dyspnea Gastrointestinal Gastrointestinal: Denies abdominal pain, nausea or vomiting Musculoskeletal Musculoskeletal: Denies arthralgias or myalgias Integumentary Reports abscess Neurologic Neurologic: Denies weakness EXAM Physical Exam Const Vital Signs: 12/09/24 18:28 12/09/24 18:31 12/09/24 19:31 Temperature 98.6 F 98.6 F 98.4 F Temperature Source Oral Oral Oral Pulse Rate 104 H 104 H 90 Respiratory Rate 18 18 19 H Blood Pressure 149/85 H 149/85 H 146/62 H Blood Pressure Mean 106 106 90 Pulse Ox 98 98 91 Oxygen Delivery Method Room Air Room Air Room Air 12/09/24 19:39 12/09/24 20:00 12/09/24 21:00 Temperature 98.4 F 98.4 F Temperature Source Oral Oral Pulse Rate 86 82 83 Respiratory Rate 18 18 18 Blood Pressure 146/62 H 146/62 H 130/67 H Blood Pressure Mean 90 90 88 Pulse Ox 95 98 95 Oxygen Delivery Method Room Air Room Air Room Air 12/09/24 21:00 12/09/24 21:53 Temperature 98.2 F Temperature Source Pulse Rate 85 79 Respiratory Rate 18 18 Blood Pressure 130/67 H 141/56 H Blood Pressure Mean 88 84 Pulse Ox 94 96 Oxygen Delivery Method Room Air Positive well nourished, well de (more content not included)... Normal [facility] Eosinophil percentageOrdered By: Sydnee Doran on 12-09-2024 Eosinophils/100 WBC (Bld) 1.0 % 0-5 [facility] Erythrocyte distribution wid th ratioOrdered By: Sydnee Doran on 12-09-2024 Erythrocyte distribution width (RBC) [Ratio] 13.8 % 11.6-14.6 [facility] Erythrocyte distribution wid th standard deviationOrdered By: Sydnee Doran on 12-09-2024 Erythrocyte distribution width (RBC) [Entitic vol] 45.8 fL High 35.1-43.9 [facility] Estimation of creatinine joanna aranceOrdered By: Sydnee Doran on 12-09-2024 Estimated Creatinine Clearance Calc 121.87 ml/min 50-250 [facility] GFR/1.73 sq M.predicted rachel g non-blacks MDRD (S/P/Bld) [Vol rate/Area]Ordered By: Sydnee Doran on 12-09-2024 Estimated GFR (MDRD) Non-Af Amer 103 >60 [facility] Comment on above: mL/min/1.73m2 CKD-EP I Creatinine Equation (2020) Glucose measurement at bedsi deOrdered By: Nik Bundy on 12-09-2024 Bedside Glucose (Misc Panel) 287 mg/dL High 74-106 [facility] Comment on above: MANAGEMENT OF PATIEN T CARE PER NURSING PROTOCOL Hematocrit Auto (Bld) [Volum e fraction]Ordered By: Sydnee Doran on 12-09-2024 Hematocrit (Bld) [Volume fraction] 44.9 % 37-47 [facility] Hemoglobin measurementOrdere d By: Sydnee Doran on 12-09-2024 Hemoglobin (Bld) [Mass/Vol] 14.8 g/dL 12.0-15.0 [facility] Immature granulocytes/100 WB C Auto (Bld)Ordered By: Sydnee Doran on 12-09-2024 Immature granulocytes/100 WBC (Bld) 0.400 % 0.0-0.9 [facility] Comment on above: IG% - Immature Granu locytes (promyelocytes, myelocytes and metamyelocytes) > 1% indicates that a LEFT SHIFT is Present. Lymphocytes Auto (Unsp spec) [#/Vol]Ordered By: Sydnee Doran on 12-09-2024 Lymphocytes (Bld) [#/Vol] 2.99 10*3/uL 0.83-4.51 [facility] Lymphocytes/100 WBC Auto (Un sp spec)Ordered By: Sydnee Doran on 12-09-2024 Lymphocytes/100 WBC (Bld) 32.8 % 19-41 [facility] MCV (mean corpuscular volume ) determinationOrdered By: Sydnee Doran on 12-09-2024 MCV (RBC) [Entitic vol] 90.7 fL 81-99 [facility] Mean corpuscular hemoglobin (MCH) determinationOrdered By: Sydnee Doran on 12-09-2024 MCH (RBC) [Entitic mass] 29.9 pg 27.0-32.0 [facility] Mean corpuscular hemoglobin concentration (MCHC) determinationOrdered By: Sydnee Doran on 12-09-2024 MCHC (RBC) [Mass/Vol] 33.0 g/dL 32-36 [facility] Mean platelet volume determi nationOrdered By: Sydnee Doran on 12-09-2024 Platelet mean volume (Bld) [Entitic vol] 12.7 fL High 6.2-12.0 [facility] Monocyte percentageOrdered B y: Sydnee Doran on 12-09-2024 Monocytes/100 WBC (Bld) 10.4 % High 0-10 [facility] Neutrophil percentageOrdered By: Sydnee Doran on 12-09-2024 Neutrophils/100 WBC (Bld) 54.4 % 47-70 [facility] Nucleated red blood cell per centageOrdered By: Sydnee Doran on 12-09-2024 Nucleated RBC/100 WBC (Bld) [Ratio] 0 % 0-5 [facility] Platelet countOrdered By: Mariya Doran on 12-09-2024 Platelets (Bld) [#/Vol] 218 10*3/uL 150-450 [facility] Potassium (Unsp spec) [Mass/ Vol]Ordered By: Sydnee Doran on 12-09-2024 Potassium [Moles/Vol] 4.0 mmol/L 3.3-5.1 [facility] RBC Auto (Bld) [#/Vol]Ordere d By: Sydnee Doran on 12-09-2024 RBC (Bld) [#/Vol] 4.95 10*6/uL 4.2-5.4 [facility] Serum creatinine measurement (mass/volume)Ordered By: Sydnee Doran on 12-09-2024 Creatinine [Mass/Vol] 0.56 mg/dL Low 0.70-1.20 [facility] Serum glucose measurement (m ass/volume)Ordered By: Sydnee Doran on 12-09-2024 Glucose [Mass/Vol] 345 mg/dL High 70-99 [facility] Serum or plasma calcium sylvia urement (mass/volume)Ordered By: Sydnee Doran on 12-09-2024 Calcium [Mass/Vol] 9.4 mg/dL 7.6-11.0 [facility] Serum or plasma urea nitroge n measurement (mass/volume)Ordered By: Sydnee Doran on 12-09-2024 Urea nitrogen [Mass/Vol] 10 mg/dL 4-19 [facility] Sodium levelOrdered By: Polo Doran on 12-09-2024 Sodium [Moles/Vol] 133 mmol/L 133-145 [facility] White blood cell (WBC) count Ordered By: Sydnee Doran on 12-09-2024 WBC (Bld) [#/Vol] 9.1 10*3/uL 4.4-11.0 [facility] 10-07-2024 [facility] Telephone (AKED) ERNESTINA HUSTON ([id number]) 1960 F Date Time Provider Department 10/07/24 BERNADETTE DONG During your visit today, we recorded the following information about you: Bernadette Dong RPh 10/07/2024 12:26 PM Signed Emergency Department Culture Callback Service Patient Name: Ernestina Huston Date of Callback: 10/07/2024 Pharmacist spoke to Patient to update on results from recent emergency department visit. Patient was verified with two identifiers. Pharmacist reviewed patient with Dr. Madelaine Cruz MD to update plan of care documented below. Type of Culture(s): Urine Result: Positive: E coli Change in treatment needed:No Action Taken: Final result reviewed with E coli resistant to prescribed amox/clav. Discussed with Dr. Madelaine Cruz MD. Plan to add nitrofurantoin to amox/clav. Patient contacted and states she is feeling better but is still not at her baseline. Also states her PCP called in prescription for doxycycline for UTI. Microbiology contacted and E coli is sensitive to tetracyclines (report addended). Patient instructed to continue amox/clav for otitis and diverticulitis and to continue doxycycline for UTI. She is welcome to call back if UTI symptoms are not improving - at that time would change to nitrofurantoin. All questions answered. Please page/call with any issues or questions. Electronic signature: Bernadette Dong RPh October 07, 2024 12:26 PM Pager/Extension: [phone] Allergies As of Date: 10/07/2024 Noted Allergy Reaction [id number] REDUCTASE INHIBIT*09/28/2021 14 - Other: See Comments Date Reviewed: 10/03/2024 Reviewed by: Joslyn Nolen RN - Fully Assessed Reason for Visit: Results [95] Prescriptions as of 10/07/2024 - amoxicillin-clavulan ate potassium (AUGMENTIN) 875-125 mg per tablet Take 1 tablet by mouth two times a day for 10 days. Meds Comments as of 10/03/2024: Pt reports she takes medications but unsure what she takes 10/03/24 Problem List As Of Date: 10/07/2024 (None) Encounter Status:Closed by BERNADETTE DONG on 10/07/24 Normal [facility] Urine Cultureon 10-06-2024 [facility] Copy of report sent to Infection Control Printer [id number] 10/06/24 0852 GIL. ESBL Escherichia coli River Count 25,000-50,000 MARKER ESBL producing OrganismA MARKER ESBL producing OrganismA Ampicillin Islt HERNANDO >=32 R Ampicillin+Sulbac Islt HERNANDO >=32 Cefepime Islt HERNANDO 1 S Doxycycline Islt HERNANDO 1 S Eravacycline Islt HERNANDO <=0.12 S cefTRIAXone Islt HERNANDO 32 R Ciprofloxacin Islt HERNANDO >=4 R B-Lactamase Extended Susc Islt POS Gentamicin Islt HERNANDO <=1 S Imipenem Islt HERNANDO <=0.25 S levoFLOXacin Islt HERNANDO >=8 R Meropenem Islt HERNANDO <=0.25 S Nitrofurantoin Islt HRENANDO <=16 S Pip+Tazo Islt HERNANDO 8 S Tobramycin Islt HERNANDO >=16 R TMP SMX Islt HERNANDO >=320 R Minocycline Islt HERNANDO <=0.5 S Normal [facility] Comment on above: Performed By: #### M 100.3709 #### [facility] [address] [place], [address] [facility] 10-03-2024 [facility] HNO ID: [id number] Author: AILYN MONTELONGO RT(R) Service: Radiology Author Type: Financial Report Service Sales Agent Type: Allied Health Filed: 10/03/2024 20:33 Note Text: Radiology Service Progress Note PATIENT NAME: Ernestina Huston DATE OF SERVICE: October 03, 2024 TIME: 8:33 PM PATIENT IDENTITY VERIFICATION COMPLETED USING TWO (2) IDENTIFIERS: Name and Date of confirmed by patient verbally and Name and Date of confirmed by identification band. FALL SCREENING: Has the patient had 2 falls in the last year or 1 fall with injury or currently using an Ambulatory Assistive Device (Walker, Cane, Wheelchair, Crutches, etc.)? Emergency Room Patient: Screened in ED PATIENT GENDER DATA: Assigned female at . status: : No status: NO. PATIENT RELEVANT IMPLANT DATA REVIEWED: Yes PATIENT PRESENTS WITH AN IMPLANTABLE OR ATTACHED PRESCHOOL LEAD TEACHER: No RADIOLOGY DEPARTMENT: CT; Exam(s) Completed: Flank Study PERIPHERAL IV DATA: Not applicable SIGNED BY: RT Amina(R) October 03, 2024 8:33 PM Normal [facility] Bacteria Ur Culton Bacteria identified Cx Nom (U) ORGANISM ID: 1 50,000-<100,000 CFU/ml Escherichia coli ORGANISM ID: 1 (ESCHERICHIA COLI) ANTIBIOTIC INTERPRETATION HERNANDO STATUS REFERENCE RANGE Ampicillin R >16 F Susceptible <=8 , Intermediate >8 , Resistant >16 Cefazolin R >16 F Susceptible 0-16 , Intermediate <0 or >16 , Resistant >16 For uncomplicated urinary tract infections, cefazolin results can be used to predict susceptibility or resistance to cephalexin. Ceftriaxone R >32 F Susceptible <=1 , Intermediate >1 , Resistant >=4 Cefepime S 2 F Susceptible <=2 , Susceptible-Dose Dependent >2 , Resistant >=16 Ertapenem S <=0.25 F Susceptible <=0.5 , Intermediate >.5 , Resistant >1 Meropenem S <=0.5 F Susceptible <=1 , Intermediate >1 , Resistant >2 Aztreonam S <=2 F Susceptible <=4 , Intermediate >4 , Resistant >=16 Ampicillin/Sulbact R >16 F Piperacillin/Tazobac SDD 16 F Corrected result: Previously reported as Susceptible (16/) on 10/06/2024 at 3:39 PM EST. Gentamicin S <=2 F Susceptible <=4 , Intermediate >4 , Resistant >8 Trimeth sulfameth R >2 F Ciprofloxacin R >2 F Susceptible <0.5 , Intermediate >=.5 , Resistant >=1 Tetracycline S <=2 C Susceptible <=4 , Intermediate >4 , Resistant >8 This is an addended report. These results have been addended to a previously final verified report. Nitrofurantoin S <=16 F Susceptible <=32 , Intermediate >32 , Resistant >64 Abnormal [facility] Comment on above: Performed By: #### 6 30-4 #### [facility] CLIA [id number] [address] STATES OF [facility] CBC W Auto Differential pane l (Bld)on 10-03-2024 Basophils (Bld) [#/Vol] 0.04 10*3/uL Normal <0.11 [facility] Comment on above: Order Comment: Speci men Type: BLOOD SPECIMEN Ordering Facility: [facility] Address: [address] [place] [address] Performed By: #### 5 7021-8 #### [facility] CLIA [id number] [address] [place] [address] [place] Basophils/100 WBC (Bld) 0.4 % Normal [facility] Comment on above: Order Comment: Speci men Type: BLOOD SPECIMEN Ordering Facility: [facility] Address: [address] [place] [address] Performed By: #### 5 7021-8 #### [facility] CLIA [id number] [address] [place] [address] OF [facility] Differential cell count method Nom (Bld) Auto Normal [facility] Comment on above: Order Comment: Speci men Type: BLOOD SPECIMEN Ordering Facility: [facility] Address: [address] [place] [address] Performed By: #### 5 7021-8 #### [facility] CLIA [id number] [address] [place] [address] [place] Eosinophils (Bld) [#/Vol] 10*3/uL Normal <0.46 [facility] Comment on above: Order Comment: Speci men Type: BLOOD SPECIMEN Ordering Facility: [facility] Address: [address] [place] [address] Performed By: #### 5 7021-8 #### [facility] CLIA [id number] [address] [place] Eosinophils/100 WBC (Bld) 0.1 % Normal [facility] Comment on above: Order Comment: Speci men Type: BLOOD SPECIMEN Ordering Facility: [facility] Address: [address] [place] [address] Performed By: #### 5 7021-8 #### [facility] CLIA [id number] [address] [place], [place] [id number] [place] [address] [place] Erythrocyte distribution width (RBC) [Ratio] 13.5 % Normal 11.5-15.0 [facility] Comment on above: Order Comment: Speci men Type: BLOOD SPECIMEN Ordering Facility: [facility] Address: [address] [place] [address] Performed By: #### 5 7021-8 #### [facility] CLIA [id number] [address] [place] [address] [place] Hematocrit (Bld) [Volume fraction] 44.7 % Normal 36.0-46.0 [facility] Comment on above: Order Comment: Speci men Type: BLOOD SPECIMEN Ordering Facility: [facility] Address: [address] [place] [address] Performed By: #### 5 7021-8 #### [facility] CLIA [id number] [address] [place] [address] [place] Hemoglobin (Bld) [Mass/Vol] 14.5 g/dL Normal 11.5-15.5 [facility] Comment on above: Order Comment: Speci men Type: BLOOD SPECIMEN Ordering Facility: [facility] Address: [address] [place] [address] Performed By: #### 5 7021-8 #### [facility] CLIA [id number] [address] [place] [address] [place] Immature granulocytes (Bld) [#/Vol] 0.05 10*3/uL Normal <0.10 [facility] Comment on above: Order Comment: Speci men Type: BLOOD SPECIMEN Ordering Facility: [facility] Address: [address] [place] [address] Performed By: #### 5 7021-8 #### [facility] CLIA [id number] [address] [place], [place] [id number] [place] [address] [place] Immature granulocytes/100 WBC (Bld) 0.4 % Normal [facility] Comment on above: Order Comment: Speci men Type: BLOOD SPECIMEN Ordering Facility: [facility] Address: [address] [place] [address] Performed By: #### 5 7021-8 #### [facility] CLIA [id number] [address] [place] [address] [place] Lymphocytes (Bld) [#/Vol] 1.17 10*3/uL Normal 1.00-4.00 [facility] Comment on above: Order Comment: Speci men Type: BLOOD SPECIMEN Ordering Facility: [facility] Address: [address] [place] [address] Performed By: #### 5 7021-8 #### [facility] CLIA [id number] [address] [place] [id number] [facility] [place] Lymphocytes/100 WBC (Bld) 10.5 % Normal [facility] Comment on above: Order Comment: Speci men Type: BLOOD SPECIMEN Ordering Facility: [facility] Address: [address] [place] [address] Performed By: #### 5 7021-8 #### [facility] CLIA [id number] [address] [place] [address] [place] MCH (RBC) [Entitic mass] 30.3 pg Normal 26.0-34.0 [facility] Comment on above: Order Comment: Speci men Type: BLOOD SPECIMEN Ordering Facility: [facility] Address: [address] [place] [address] Performed By: #### 5 7021-8 #### [facility] CLIA [id number] [address] [place] [address] [place] MCHC (RBC) [Mass/Vol] 32.4 g/dL Normal 30.5-36.0 [facility] Comment on above: Order Comment: Speci men Type: BLOOD SPECIMEN Ordering Facility: [facility] Address: [address] [place] [address] Performed By: #### 5 7021-8 #### [facility] CLIA [id number] [address] OF [facility] MCV (RBC) [Entitic vol] 93.5 fL Normal 80.0-100.0 [facility] Comment on above: Order Comment: Speci men Type: BLOOD SPECIMEN Ordering Facility: [facility] Address: [address] [place] [address] Performed By: #### 5 7021-8 #### [facility] CLIA [id number] [address] [place] [address] [place] Monocytes (Bld) [#/Vol] 1.02 10*3/uL High <0.87 [facility] Comment on above: Order Comment: Speci men Type: BLOOD SPECIMEN Ordering Facility: [facility] Address: [address] [place] [address] Performed By: #### 5 7021-8 #### [facility] CLIA [id number] [address] OF [place] Monocytes/100 WBC (Bld) 9.1 % Normal [facility] Comment on above: Order Comment: Speci men Type: BLOOD SPECIMEN Ordering Facility: [facility] Address: [address] [place] [address] Performed By: #### 5 7021-8 #### [facility] CLIA [id number] [address] [place] [address] [place] Neutrophils (Bld) [#/Vol] 8.90 10*3/uL High 1.45-7.50 [facility] Comment on above: Order Comment: Speci men Type: BLOOD SPECIMEN Ordering Facility: [facility] Address: [address] [place] [address] Performed By: #### 5 7021-8 #### [facility] CLIA [id number] [address] [place] [address] [place] Neutrophils/100 WBC (Bld) 79.5 % Normal [facility] Comment on above: Order Comment: Speci men Type: BLOOD SPECIMEN Ordering Facility: [facility] Address: [address] [place] [address] Performed By: #### 5 7021-8 #### [facility] CLIA [id number] [address] [place] [address] [place] Nucleated RBC (Bld) [#/Vol] Normal [facility] Comment on above: Order Comment: Speci men Type: BLOOD SPECIMEN Ordering Facility: [facility] Address: [address] [place] [address] Performed By: #### 5 7021-8 #### [facility] CLIA [id number] [address] [place] [address] [place] Nucleated RBC/100 WBC (Bld) [Ratio] Normal [facility] Comment on above: Order Comment: Speci men Type: BLOOD SPECIMEN Ordering Facility: [facility] Address: [address] [place] [address] Performed By: #### 5 7021-8 #### [facility] CLIA [id number] [address] [place] [address] [place] Platelet mean volume (Bld) [Entitic vol] 11.9 fL Normal 9.0-12.7 [facility] Comment on above: Order Comment: Speci men Type: BLOOD SPECIMEN Ordering Facility: [facility] Address: [address] [place] [address] Performed By: #### 5 7021-8 #### [facility] CLIA [id number] [address] [place] [address] [facility] Platelets (Bld) [#/Vol] 215 10*3/uL Normal 150-400 [facility] Comment on above: Order Comment: Speci men Type: BLOOD SPECIMEN Ordering Facility: [facility] Address: [address] [place] [address] Performed By: #### 5 7021-8 #### [facility] CLIA [id number] [address] [place] [address] OF [facility] RBC (Bld) [#/Vol] 4.78 10*6/uL Normal 3.90-5.20 [facility] Comment on above: Order Comment: Speci men Type: BLOOD SPECIMEN Ordering Facility: [facility] Address: [address] [place] [address] Performed By: #### 5 7021-8 #### [facility] CLIA [id number] [address] [place] [address] WBC (Bld) [#/Vol] 11.19 10*3/uL High 3.70-11.00 [facility] Comment on above: Order Comment: Speci men Type: BLOOD SPECIMEN Ordering Facility: [facility] Address: [address] [place] [address] Performed By: #### 5 7021-8 #### [facility] CLIA [id number] [address] OF [place] CT ABD/PEL WO IVCONon 2024 CT ABD/PEL WO IVCON * * *Final Report* * * DATE OF EXAM: Oct 03 2024 8:11PM [facility] 0531 - CT ABD/PEL WO IVCON / PROCEDURE REASON: rt sided flankpain with hematuria * * * * Physician Interpretation * * * * EXAMINATION: CT ABDOMEN AND PELVIS WITHOUT IV CONTRAST CLINICAL HISTORY: Right-sided flank pain TECHNIQUE: Non-IV contrast imaging of the abdomen and pelvis was performed using standard technique, scanning from just above the dome of the diaphragm to the symphysis pubis. Unenhanced imaging is limited for the evaluation of some intra-abdominal and pelvic pathology. MQ: CTAPWO_3 Contrast: IV: None : ml of CT Radiation dose: Integrated Dose-length product (DLP) for this visit = 435.83 mGy*cm. CT Dose Reduction Employed: Automated exposure control(AEC) and iterative recon COMPARISON: None. RESULT: Abdomen / Pelvis: Liver: Findings suggestive of fatty infiltration of the liver. No masses are identified.. Biliary: The gallbladder appears moderately distended. Gallstones are present in the gallbladder. No pericholecystic fluid or stranding is identified. No biliary ductal dilatation is identified. Spleen: No splenomegaly. Pancreas: Unremarkable. Adrenals: A 1.4 cm left adrenal nodule is noted. The Hounsfield values are in the indeterminate range. The right adrenal gland appears unremarkable. Kidneys: No calculus, hydronephrosis or finding to suggest a cyst or mass in the unenhanced kidney. GI Tract: No bowel dilation. Scattered colonic diverticula are noted. No CT evidence of diverticulitis. The appendix appears normal. A 2.5 cm diverticulum is noted involving the second portion of the duodenum. Lymph Nodes: No lymphadenopathy. Mesentery/peritoneum : No ascites. Retroperitoneum: No mass. Vasculature: Arterial atherosclerotic disease without aneurysm. Pelvis: No mass or ascites. Bones/Soft Tissues: Degenerative changes are noted in the thoracic and lumbar spine. Lower thorax: Unremarkable. Localizer images: IMPRESSION: 1. No acute findings are identified. 2. Cholelithiasis. 3. Hepatic steatosis. 4. Diverticulosis. 5. 1.4 cm left adrenal nodule. Bi Consultant: PSCB Transcribe Date/Time: Oct 03 2024 8:19P Dictated by : ANTELMO GABRIEL MD This examination was interpreted and the report reviewed and electronically signed by: ANTELMO GABRIEL MD on Oct 03 2024 8:25PM EST [id number] CN Normal [facility] Comprehensive metabolic 2000 panelon 10-03-2024 Albumin [Mass/Vol] 3.8 g/dL Low 3.9-4.9 [facility] Comment on above: Order Comment: Speci men Type: BLOOD SPECIMEN Ordering Facility: [facility] Address: [address] [place] [address] Performed By: #### 3 040-3, , #### [facility] CLIA [id number] [address] [place] [address] [place] [facility] ALP [Catalytic activity/Vol] 113 U/L Normal 34-123 [facility] Comment on above: Order Comment: Speci men Type: BLOOD SPECIMEN Ordering Facility: [facility] Address: [address] [place] [address] Performed By: #### 3 040-3, , #### [facility] CLIA [id number] [address] [place] [address] [place] ALT With P-5'-P [Catalytic activity/Vol] 24 U/L Normal 7-38 [facility] Comment on above: Order Comment: Speci men Type: BLOOD SPECIMEN Ordering Facility: [facility] Address: [address] [place] [address] Performed By: #### 3 040-3, , #### [facility] CLIA [id number] [address] [place] [address] [place] Anion gap [Moles/Vol] 17 mmol/L High 8-15 [facility] Comment on above: Order Comment: Speci men Type: BLOOD SPECIMEN Ordering Facility: [facility] Address: [address] [place] [address] Performed By: #### 3 040-3, , #### [facility] CLIA [id number] [address] [place] [address] [place] AST With P-5'-P [Catalytic activity/Vol] 37 U/L High 13-35 [facility] Comment on above: Order Comment: Speci men Type: BLOOD SPECIMEN Ordering Facility: [facility] Address: [address] [place] [address] Performed By: #### 3 040-3, , #### [facility] CLIA [id number] [address] [place] [address] [place] Bilirubin [Mass/Vol] 0.6 mg/dL Normal 0.2-1.3 [facility] Comment on above: Order Comment: Speci men Type: BLOOD SPECIMEN Ordering Facility: [facility] Address: [address] [place] [address] Performed By: #### 3 040-3, , #### [facility] CLIA [id number] [address] [place] [address] [place] Calcium [Mass/Vol] 9.2 mg/dL Normal 8.5-10.2 [facility] Comment on above: Order Comment: Speci men Type: BLOOD SPECIMEN Ordering Facility: [facility] Address: [address] [place] [address] Performed By: #### 3 040-3, , #### [facility] CLIA [id number] [address] [place] [address] [place] Chloride [Moles/Vol] 94 mmol/L Low 98-107 [facility] Comment on above: Order Comment: Speci men Type: BLOOD SPECIMEN Ordering Facility: [facility] Address: [address] [place] [address] Performed By: #### 3 040-3, , #### [facility] CLIA [id number] [address] [place] [address] [place] CO2 [Moles/Vol] 20 mmol/L Low 22-30 [facility] Comment on above: Order Comment: Speci men Type: BLOOD SPECIMEN Ordering Facility: [facility] Address: [address] [place] [address] Performed By: #### 3 040-3, , #### [facility] CLIA [id number] [address] [place] [address] [place] Creatinine [Mass/Vol] 0.60 mg/dL Normal 0.58-0.96 [facility] Comment on above: Order Comment: Stephanie taylor Type: BLOOD SPECIMEN Ordering Facility: [facility] Address: [address] [place] [address] Performed By: #### 3 040-3, , #### [facility] CLIA [id number] [address] [place] [address] [facility] [place] Creatinine and Glomerular filtration rate.predicted panel (S/P/Bld) 102 mL/min/1.73m??? Normal >=60 [facility] Comment on above: Order Comment: [facility] Type: BLOOD SPECIMEN Ordering Facility: [facility] Address: [address] [place] [address] Result Comment: Alanis mated Glomerular Filtration Rate (eGFR) is calculated using the 2020 CKD-EPI creatinine equation. This equation utilizes serum creatinine, sex, and age as parameters. The creatinine assay has traceable calibration to isotope dilution-mass spectrometry. Refer to KDIGO guidelines for clinical interpretation. In patients with unstable renal function, e.g. those with acute kidney injury, the eGFR may not accurately reflect actual GFR. Performed By: #### 3 040-3, , #### [facility] CLIA [id number] [address] [place] [address] [place] Glucose [Mass/Vol] 269 mg/dL High 74-99 [facility] Comment on above: Order Comment: Stephanie brandon Type: BLOOD SPECIMEN Ordering Facility: [facility] Address: [address] [place] [address] Result Comment: The [place] Diabetes Association (ADA) provides guidance for cutoff values for fasting glucose and random glucose. The ADA defines fasting as no caloric intake for at least 8 hours. Fasting plasma glucose results between 100 to 125 mg/dL indicate increased risk for diabetes (prediabetes). Fasting plasma glucose results greater than or equal to 126 mg/dL meet the criteria for diagnosis of diabetes. In the absence of unequivocal hyperglycemia, results should be confirmed by repeat testing. In a patient with classic symptoms of hyperglycemia or hyperglycemic crisis, random plasma glucose results greater than or equal to 200 mg/dL meet the criteria for diagnosis of diabetes. Reference: Standards of Medical Care in Diabetes 2016, [place] Diabetes Association. Diabetes Care. 2016.39(Suppl 1). Performed By: #### 3 040-3, , #### [facility] CLIA [id number] [address] [place] [address] [place] Potassium [Moles/Vol] 3.9 mmol/L Normal 3.7-5.1 [facility] Comment on above: Order Comment: Stephanie taylor Type: BLOOD SPECIMEN Ordering Facility: [facility] Address: [address] [place] [address] Performed By: #### 3 040-3, , #### [facility] CLIA [id number] [address] [place] [address] [place] Protein [Mass/Vol] 7.0 g/dL Normal 6.3-8.0 [facility] Comment on above: Order Comment: Stephanie taylor Type: BLOOD SPECIMEN Ordering Facility: [facility] Address: [address] [place] [address] Performed By: #### 3 040-3, , #### [facility] CLIA [id number] [address] [place] [address] [place] Sodium [Moles/Vol] 131 mmol/L Low 136-144 [facility] Comment on above: Order Comment: Evai men Type: BLOOD SPECIMEN Ordering Facility: [facility] Address: [address] [place] [address] Performed By: #### 3 040-3, , #### [facility] CLIA [id number] [address] [place] [address] [place] Urea nitrogen [Mass/Vol] 16 mg/dL Normal 7-21 [facility] Comment on above: Order Comment: Speci men Type: BLOOD SPECIMEN Ordering Facility: [facility] Address: [facility] [place] [id number] Performed By: #### 3 040-3, 04111-1, 73672-0 #### [facility] CLIA [id number] [address] [place] [address] [place] ECG COMPLETEon 10-03-2024 ECG COMPLETE Ventricular Rate : 93 BPM Atrial Rate : 93 BPM P-R Interval : 118 ms QRS Duration : 124 ms Q-T Interval : 424 ms QTC Calculation(Bazett) : 527 ms Calculated P [place] : 68 degrees Calculated R [place] : -74 degrees Calculated T [place] : 111 degrees Atrial-sensed ventricular-paced rhythm ABNORMAL ECG NO PREVIOUS ECGS AVAILABLE Confirmed by MD GOODWIN VINAYAK ([id number]) on 10/04/2024 11:59:45 PM NAME : ERNESTINA HUSTON PID : [id number] : 1960 Gender : Female Race : ORD : [id number] Procedure Date : Oct 03 2024 18:12:37 Edit Date : Oct 04 2024 23:59:45 Diagnosis: Atrial-sensed ventricular-paced rhythm ABNORMAL ECG NO PREVIOUS ECGS AVAILABLE Confirmed by MD GOODWIN VINAYAK ([id number]) on 10/04/2024 11:59:45 PM Test Reason : Chest Pain Location : 191 : [facility] ED Overread By : MD GOODWIN VINAYAK Edited By : MD GOODWIN VINAYAK Referred By : , Acquired by : SANJAY SEAY [facility] ED NOTEon 10-03-2024 ED NOTE HNO ID: [id number] Author: JOSLYN NOLEN, RN Service: Emergency Medicine Author Type: Registered Nurse Type: ED Notes Filed: 10/03/2024 18:07 Note Text: Pt reports she was sent over by her PCP for possible dehydration. States she has been having trouble holding her urine for a few weeks thought it would go away. Yesterday started with weakness/chills/feve r. Went to PCP today during visit BP was low. Per paper work pt brought in from PCP she did receive 1GM rocephin IM for a UTI. Pt is alert and oriented, ambulates to room 10. [facility] ED PROV NOTEon 10-03-2024 ED PROV NOTE HNO ID: [id number] Author: FARRAH WELDON MD Service: Emergency Medicine Author Type: Physician Type: ED Provider Notes Filed: 10/03/2024 21:05 Note Text: ED Provider Note Patient Name: Ernestina Huston : 1960 SERVICE DATE: 10/03/24 History Patient presents with: Incontinence Fever Weakness Patient is a 64-year-old female with a past medical history significant for a heart attack status post ICD pacemaker placement, diabetes, GERD, and diabetic neuropathy who presents the emergency department for urinary urgency. Patient states was seen at the PCPs office for urinary urgency and incontinence. She states she was diagnosed with a UTI. She states she got a dose of Rocephin. She says she feels better after the dose of Rocephin. She states however her PCP was concerned that she may be dehydrated with hypotension hence sending her to the emergency department for evaluation. She denies lightheadedness or dizziness. She denies nausea vomiting or diarrhea. She also denies fevers or chills. 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 Social History Tobacco Use Smoking status: Never Smokeless tobacco: Never Vaping Use Vaping status: Not on file Substance and Sexual Activity Alcohol use: Not Currently Drug use: Not Currently Sexual activity: Not on file ALLERGIES Allergen Reactions Qeazvwu-Mlg-Ujf Red* Other: See Comments Review of Systems Constitutional: Negative for chills, fatigue and fever. HENT: Negative for ear discharge, ear pain, mouth sores, rhinorrhea, sinus pressure, sneezing, sore throat and tinnitus. Eyes: Negative for photophobia, discharge, itching and visual disturbance. Respiratory: Negative for cough, shortness of breath, wheezing and stridor. Cardiovascular: Negative for chest pain, palpitations and leg swelling. Gastrointestinal: Negative for abdominal distention, blood in stool, constipation, diarrhea, nausea and vomiting. Endocrine: Negative for cold intolerance and heat intolerance. Genitourinary: Positive for flank pain and urgency. Negative for dysuria, frequency and hematuria. Musculoskeletal: Positive for back pain. Negative for gait problem and joint swelling. Skin: Negative for color change, pallor and rash. Neurological: Negative for dizziness, syncope, weakness, light-headedness and headaches. Psychiatric/Behavior al: Negative for confusion, hallucinations, sleep disturbance and suicidal ideas. Physical Exam Vitals [10/03/24 1800] BP Pulse Temp Temp src Resp SpO2 Weight Height 107/64 (!) 96 36.9 ?C (98.4 ?F) Temporal 20 96 % 93 kg (205 lb) -- Physical Exam Vitals and nursing note reviewed. Constitutional: General: She is not in acute distress. HENT: Head: Normocephalic and atraumatic. Right Ear: External ear normal. A middle ear effusion is present. Tympanic membrane is injected and erythematous. Left Ear: External ear normal. Nose: No congestion or rhinorrhea. Mouth/Throat: Mouth: Mucous membranes are moist. Pharynx: Oropharynx is clear. Eyes: General: Right eye: No discharge. Left eye: No discharge. Pupils: Pupils are equal, round, and reactive to light. Neck: Trachea: No tracheal deviation. Cardiovascular: Rate and Rhythm: Normal rate and regular rhythm. Heart sounds: Normal heart sounds. Pulmonary: Effort: No respiratory distress. Breath sounds: Normal breath sounds. No stridor. No wheezing. Abdominal: General: There is no distension. Palpations: There is no mass. Tenderness: There is no abdominal tenderness. There is right CVA tenderness. There is no left CVA tenderness, guarding or rebound. Musculoskeletal: General: No tenderness or deformity. Cervical back: Normal range of motion. Lymphadenopathy: Cervical: No cervical adenopathy. Skin: General: Skin is warm and dry. Coloration: Skin is not pale. Findings: No rash. Neurological: General: No focal deficit present. Mental Status: She is alert and oriented to person, place, and time. Psychiatric: Thought Content: Thought content normal. Judgment: Judgment normal. Diagnostic Testing ED Labs Ordered and Reviewed COMPREHENSIVE METABOLIC PANEL - Abnormal; Notable for the following components: Result Value Ref Range Albumin 3.8 (*) 3.9 - 4.9 g/dL AST 37 (*) 13 - 35 U/L Glucose 269 (*) 74 - 99 mg/dL Sodium 131 (*) 136 - 144 mmol/L Chloride 94 (*) 98 - 107 mmol/L CO2 20 (*) 22 - 30 mmol/L Anion Gap 17 (*) 8 - 15 mmol/L All other components within normal limits LIPASE - Abnormal; Notable for the following components: Lipase 15 (*) 16 (more content not included)... Normal [facility] - Chemistry and C hemistry - challengeon 10-03-2024 Bilirubin Ql (U) Negative [facility] Glucose Ql (U) 500 g/dL [facility] Ketones Ql (U) Small (15+) [facility] pH (U) 6.0 [pH] [facility] Specific gravity (U) [Rel density] 1.020 [facility] Urobilinogen (U) [Mass/Vol] 0.4116233 mg/dL [facility] Laboratory - Hematology and Cell countson 10-03-2024 HbA1c (Bld) [Mass fraction] 11.8 % High 4.2-6.3 [facility] Hemoglobin Ql (U) Moderate [facility] Laboratory - Specimen inform ationon 10-03-2024 Clarity (U) Cloudy [facility] Color (U) YELLOW [facility] Laboratory - Urinalysison Nitrite Ql (U) Negative [facility] Protein Ql (U) Negative [facility] Lipase SerPl-cCncon 10-03-19 25 Lipase [Catalytic activity/Vol] 15 U/L Low 16-61 [facility] Comment on above: Order Comment: Speci men Type: BLOOD SPECIMEN Ordering Facility: [facility] Address: [address] [place] [address] Performed By: #### 3 040-3, 18571-0, 40596-0 #### [facility] CLIA [id number] [address] [place] [address] [place] Magnesium SerPl-mCncon 10-03 Magnesium [Mass/Vol] 2.1 mg/dL Normal 1.7-2.3 [facility] Comment on above: Order Comment: Speci men Type: BLOOD SPECIMENOrdering Facility: [facility] Address: [address] [place], [place] [address] Performed By: #### 3 040-3, 44467-2, 94973-5 ####[facility] [id number] [address] No Panel Informationon 10-03 Urine Leukocytes Negatve [facility] Urine Non-Hemolyzed Blood [facility] SEPSIS LACTATE W/ REFLEX (IN ITIAL)on 10-03-2024 Lactate [Moles/Vol] 1.3 mmol/L Normal <=2.0 [facility] Comment on above: Order Comment: Speci men Type: BLOOD SPECIMENOrdering Facility: [facility] Address: [address] [place] [address] Performed By: #### S LACTR ####[facility] [id number] [address] Urinalysis complete panel (U )on 10-03-2024 Bacteria LM.HPF (Urine sed) [#/Area] Few Abnormal None Seen [facility] Comment on above: Order Comment: Speci men Type: URINE SPECIMEN Ordering Facility: [facility] Address: [address] [place] [address] Performed By: #### 2 4356-8 #### [facility] CLIA [id number] [address] Bilirubin Ql (U) 1+ Abnormal Negative [facility] Comment on above: Order Comment: Speci men Type: URINE SPECIMEN Ordering Facility: [facility] Address: [address] [place] [address] Result Comment: Sugg est correlation with clinical findings and serum bilirubin if clinically indicated. Performed By: #### 2 4356-8 #### [facility] CLIA [id number] [address] Clarity (Unsp spec) Slightly Cloudy Abnormal Clear [facility] Comment on above: Order Comment: Speci men Type: URINE SPECIMEN Ordering Facility: [facility] Address: [address] [place] [address] Performed By: #### 2 4356-8 #### [facility] CLIA [id number] [address] [place] [address] [facility] [place] Color (U) Yellow Normal Yellow [facility] Comment on above: Order Comment: Speci men Type: URINE SPECIMEN Ordering Facility: [facility] Address: [address] [place] [address] Performed By: #### 2 4356-8 #### [facility] CLIA [id number] [address] [place] [address] [facility] [place] Epithelial cells LM.HPF (Urine sed) [#/Area] Few Normal [facility] Comment on above: Order Comment: Speci men Type: URINE SPECIMEN Ordering Facility: [facility] Address: [address] [place] [address] Performed By: #### 2 4356-8 #### [facility] CLIA [id number] [address] [place] [address] [place] Glucose Test strip (U) [Mass/Vol] 2+ Abnormal Negative [facility] Comment on above: Order Comment: Speci men Type: URINE SPECIMEN Ordering Facility: [facility] Address: [address] [place] [address] Performed By: #### 2 4356-8 #### [facility] CLIA [id number] [address] [place] [address] [place] Hemoglobin Ql (U) 2+ Abnormal Negative [facility] Comment on above: Order Comment: Speci men Type: URINE SPECIMEN Ordering Facility: [facility] Address: [address] [place] [address] Performed By: #### 2 4356-8 #### [facility] CLIA [id number] [address] [place] [address] [facility] Ketones Ql (U) 2+ Abnormal Negative [facility] Comment on above: Order Comment: Speci men Type: URINE SPECIMEN Ordering Facility: [facility] Address: [address] [place] [address] Performed By: #### 2 4356-8 #### [facility] CLIA [id number] [address] [place] [address] [facility] Leukocyte esterase Test strip Ql (U) Negative Normal Negative [facility] Comment on above: Order Comment: Speci men Type: URINE SPECIMEN Ordering Facility: [facility] Address: [address] [place] [address] Performed By: #### 2 4356-8 #### [facility] CLIA [id number] [address] [place] [address] [place] Nitrite Ql (U) Negative Normal Negative [facility] Comment on above: Order Comment: Speci men Type: URINE SPECIMEN Ordering Facility: [facility] Address: [address] [place] [address] Performed By: #### 2 4356-8 #### [facility] CLIA [id number] [address] [place] [address] [place] pH (U) 5.5 [pH] Normal 5.0-8.0 [facility] Comment on above: Order Comment: Speci men Type: URINE SPECIMEN Ordering Facility: [facility] Address: [address] [place] [address] Performed By: #### 2 4356-8 #### [facility] CLIA [id number] [address] [place] [address] [facility] Protein (U) [Mass/Vol] Negative Normal Negative [facility] Comment on above: Order Comment: Speci men Type: URINE SPECIMEN Ordering Facility: [facility] Address: [address] [place] [address] Performed By: #### 2 4356-8 #### [facility] CLIA [id number] [address] [place] [id number] [facility] RBC LM.HPF (Urine sed) [#/Area] 11-25 /HPF Abnormal 0-3 /HPF [facility] Comment on above: Order Comment: Speci men Type: URINE SPECIMEN Ordering Facility: [facility] Address: [address] [place] [address] Performed By: #### 2 4356-8 #### [facility] CLIA [id number] [address] Specific gravity (U) [Rel density] 1.015 Normal 1.005-1.030 [facility] Comment on above: Order Comment: Speci men Type: URINE SPECIMEN Ordering Facility: [facility] Address: [address] [place] [address] Performed By: #### 2 4356-8 #### [facility] CLIA [id number] [address] Urobilinogen Ql (U) 0.2 EU/dL Normal 0.2-1.0 EU/dL [facility] Comment on above: Order Comment: Speci men Type: URINE SPECIMEN Ordering Facility: [facility] Address: [address] [place] [address] Performed By: #### 2 4356-8 #### [facility] CLIA [id number] [address] [place] [address] WBC LM.HPF (Urine sed) [#/Area] 6-10 /HPF Abnormal 0-5 /HPF [facility] Comment on above: Order Comment: Speci men Type: URINE SPECIMEN Ordering Facility: [facility] Address: [address] [place] [address] Performed By: #### 2 4356-8 #### [facility] CLIA [id number] [address] [place] Urine cultureOrdered By: Jamie Kumar on 10-03-2024 Bacteria identified Cx Nom (U) ESBL Escherichia coli Abnormal [facility] XR FOOT 3V AP/LAT/OBL LTon 0 12-24-2023 XR FOOT 3V AP/LAT/OBL LT * * *Final Repo rt* * * DATE OF EXAM: Dec 24 2023 11:07AM LDX 5336 - XR FOOT 3V AP/LAT/OBL LT / PROCEDURE REASON: M85.672 Bone Cyst left foot * * * * Physician Interpretation * * * * EXAM TITLE: XR FOOT 3V AP/LAT/OBL LT DATE: 12/26/2023 7:43 PM INDICATION: Palpable lump of the left foot COMPARISON: None. FINDINGS: Diffuse osteopenia. No fracture or dislocation. Mild soft tissue swelling is noted just dorsal to the level of the tarsal bones. Small spur at the insertion of the tendo calcaneus. IMPRESSION: Soft tissue swelling along the dorsum of the foot. No acute osseous abnormality. Bi Consultant: PSCB Transcribe Date/Time: Dec 26 2023 7:43P Dictated by : YAHAIRA LEE MD This examination was interpreted and the report reviewed and electronically signed by: YAHAIRA LEE MD on Dec 26 2023 7:45PM EST [id number] CN Normal [facility] Absolute lymphocyte countOrd ered By: Naima Kumar on 12-21-2023 Lymphocytes Auto (Unsp spec) [#/Vol] 3.20 10*3/uL 0.83-4.51 [facility] Automated lymphocyte count a s percentage of total leukocytesOrdered By: Naima Kumar on 12-21-2023 Lymphocytes/100 WBC Auto (Unsp spec) 36.7 % 19-41 [facility] Basophil percentageOrdered B y: Naima Kumar on 12-21-2023 Basophils/100 WBC (Bld) 0.9 % 0-1 [facility] Bilirubin [Mass/Vol] 0.50 mg/dL 0.20-1.00 [facility] Comment on above: For patients on eltr ombopag therapy, use of [place] TBIL is not recommended. Chloride [Moles/Vol] 105 mmol/L 98-107 [facility] Cholesterol [Mass/Vol] 268 mg/dL <[address] [facility] Comment on above: <200 mg/dL Desirable 200-240 mg/dL Borderline >240 mg/dL High Risk Eosinophils/100 WBC (Bld) 1.0 % 0-5 [facility] Glucose [Mass/Vol] 128 mg/dL 74-106 [facility] Comment on above: Fasting Glucose resu lt greater than or equal to 126 mg/dL suggests DIABETES MELLITUS per A.D.A. criteria. Hemoglobin (Bld) [Mass/Vol] 15.2 g/dL 12.0-15.0 [facility] Monocytes/100 WBC (Bld) 10.6 % 0-10 [facility] Neutrophils (Bld) [#/Vol] 4.4 10*3/uL 2.0-7.7 [facility] Neutrophils/100 WBC (Bld) 50.6 % 47-70 [facility] Potassium [Moles/Vol] 4.1 mmol/L 3.5-5.1 [facility] Protein [Mass/Vol] 7.5 g/dL 6.4-8.2 [facility] Sodium [Moles/Vol] 137 mmol/L 136-145 [facility] Triglyceride [Mass/Vol] 348 mg/dL <199 [facility] Comment on above: The drugs N-Acetylcy steine and Metamizole may falsely depress this assay.Serum Triglycerides Reference Interval Normal <150 mg/dL Borderline high 150 - 199 mg/dL High 200 - 499 mg/dL Very High > or = 500 mg/dL WBC (Bld) [#/Vol] 8.7 10*3/uL 4.4-11.0 [facility] CBC W/Diff, Automatedon 03 Absolute Lymph 3.20 X10 3/uL Normal 0.83-4.51 [facility] Comment on above: Performed By: #### L 100.0100, L500.4050, L500.4100, L501.9520 #### [facility] [address] [place], [address] Absolute Neut 4.4 X10 3/uL Normal 2.0-7.7 [facility] Comment on above: Performed By: #### L 100.0100, L500.4050, L500.4100, L501.9520 #### [facility] [address] [place], [address] Basophils/100 WBC (Bld) 0.9 % Normal 0-1 [facility] Comment on above: Performed By: #### L 100.0100, L500.4050, L500.4100, L501.9520 #### [facility] [address] [place], [address] Eosinophils/100 WBC (Bld) 1.0 % Normal 0-5 [facility] Comment on above: Performed By: #### L 100.0100, L500.4050, L500.4100, L501.9520 #### [facility] [address] [place], [address] Erythrocyte distribution width (RBC) [Ratio] 13.3 % Normal 11.6-14.6 [facility] Comment on above: Performed By: #### L 100.0100, L500.4050, L500.4100, L501.9520 #### [facility] [address] [place], [address] Hematocrit (Bld) [Volume fraction] 47.3 % High 37-47 [facility] Comment on above: Performed By: #### L 100.0100, L500.4050, L500.4100, L501.9520 #### [facility] [address] [place], [address] Hemoglobin (Bld) [Mass/Vol] 15.2 g/dL High 12.0-15.0 [facility] Comment on above: Performed By: #### L 100.0100, L500.4050, L500.4100, L501.9520 #### [facility] [address] [place], [address] IG% 0.200 Normal 0.0-0.9 [facility] Comment on above: Result Comment: IG% - Immature Granulocytes (promyelocytes, myelocytes and metamyelocytes) > 1% indicates that a LEFT SHIFT is Present. Performed By: #### L 100.0100, L500.4050, L500.4100, L501.9520 #### [facility] [address] [place], [address] Lymphocytes/100 WBC (Bld) 36.7 % Normal 19-41 [facility] Comment on above: Performed By: #### L 100.0100, L500.4050, L500.4100, L501.9520 #### [facility] [address] [place], [address] MCH (RBC) [Entitic mass] 30.3 pg Normal 27.0-32.0 [facility] Comment on above: Performed By: #### L 100.0100, L500.4050, L500.4100, L501.9520 #### [facility] [address] [place], [address] MCHC (RBC) [Mass/Vol] 32.1 g/dL Normal 32-36 [facility] Comment on above: Performed By: #### L 100.0100, L500.4050, L500.4100, L501.9520 #### [facility] [address] [place], [address] MCV (RBC) [Entitic vol] 94.4 fL Normal 81-99 [facility] Comment on above: Performed By: #### L 100.0100, L500.4050, L500.4100, L501.9520 #### [facility] [address] [place], [address] Monocytes/100 WBC (Bld) 10.6 % High 0-10 [facility] Comment on above: Performed By: #### L 100.0100, L500.4050, L500.4100, L501.9520 #### [facility] [address] [place], [address] Neutrophils/100 WBC (Bld) 50.6 % Normal 47-70 [facility] Comment on above: Performed By: #### L 100.0100, L500.4050, L500.4100, L501.9520 #### [facility] [address] [place], [address] Nucleated RBC (Bld) [#/Vol] 0 10*3/uL Normal 0-5 [facility] Comment on above: Performed By: #### L 100.0100, L500.4050, L500.4100, L501.9520 #### [facility] [address] [place], [address] Platelet mean volume (Bld) [Entitic vol] 12.9 fL High 6.2-12.0 [facility] Comment on above: Performed By: #### L 100.0100, L500.4050, L500.4100, L501.9520 #### [facility] [address] [place], [address] Platelets (Bld) [#/Vol] 226 10*3/uL Normal 150-450 [facility] Comment on above: Performed By: #### L 100.0100, L500.4050, L500.4100, L501.9520 #### [facility] [address] [place], [address] RBC (Bld) [#/Vol] 5.01 10*6/uL Normal 4.2-5.4 [facility] Comment on above: Performed By: #### L 100.0100, L500.4050, L500.4100, L501.9520 #### [facility] [address] [place], [address] RDW SD 46.3 fl High 35.1-43.9 [facility] Comment on above: Performed By: #### L 100.0100, L500.4050, L500.4100, L501.9520 #### [facility] [address] [place], [address] WBC (Bld) [#/Vol] 8.7 10*3/uL Normal 4.4-11.0 [facility] Comment on above: Performed By: #### L 100.0100, L500.4050, L500.4100, L501.9520 #### [facility] [address] [place], [address] Comprehensive Metabolic Prof ilon 12-21-2023 Albumin [Mass/Vol] 3.8 g/dL Normal 3.2-5.0 [facility] Comment on above: Performed By: #### L 100.0100, L500.4050, L500.4100, L501.9520 #### [facility] [address] [place], [address] Albumin/Globulin [Mass ratio] 1.0 {ratio} Normal 0.9-2.4 [facility] Comment on above: Performed By: #### L 100.0100, L500.4050, L500.4100, L501.9520 #### [facility] [address] [place], [address] ALK P 105 U/L Normal 45-117 [facility] Comment on above: Performed By: #### L 100.0100, L500.4050, L500.4100, L501.9520 #### [facility] [address] [place], [address] ALT [Catalytic activity/Vol] 24 U/L Normal 13-56 [facility] Comment on above: Performed By: #### L 100.0100, L500.4050, L500.4100, L501.9520 #### [facility] [address] [place], [address] AST [Catalytic activity/Vol] 14 U/L Low 15-37 [facility] Comment on above: Performed By: #### L 100.0100, L500.4050, L500.4100, L501.9520 #### [facility] [address] [place], [address] Bilirubin [Mass/Vol] 0.50 mg/dL Normal 0.20-1.00 [facility] Comment on above: Result Comment: For patients on eltrombopag therapy, use of [place] TBIL is not recommended. Performed By: #### L 100.0100, L500.4050, L500.4100, L501.9520 #### [facility] [address] [place], [address] BUN/CRE 20.8 RATIO High 10-20 [facility] Comment on above: Performed By: #### L 100.0100, L500.4050, L500.4100, L501.9520 #### [facility] [address] [place], [address] CA,Total 9.2 mg/dL Normal 8.5-10.1 [facility] Comment on above: Performed By: #### L 100.0100, L500.4050, L500.4100, L501.9520 #### [facility] [address] [place], [address] Chloride [Moles/Vol] 105 mmol/L Normal 98-107 [facility] Comment on above: Performed By: #### L 100.0100, L500.4050, L500.4100, L501.9520 #### [facility] [address] [place], [address] CO2 [Moles/Vol] 24.0 mmol/L Normal 21.0-32.0 [facility] Comment on above: Performed By: #### L 100.0100, L500.4050, L500.4100, L501.9520 #### [facility] [address] [place], [address] Creatinine [Mass/Vol] 0.72 mg/dL Normal 0.55-1.02 [facility] Comment on above: Result Comment: The validity of the calculated GFR GFRAA in patients over 70 years has not been determined. Clinical correlation is essential. Performed By: #### L 100.0100, L500.4050, L500.4100, L501.9520 #### [facility] [address] [place], [address] EST GFR - AA 106 mL/min Normal >60 [facility] Comment on above: Result Comment: Afri can Mexican GFR Calc Performed By: #### L 100.0100, L500.4050, L500.4100, L501.9520 #### [facility] [address] [place], [address] GAP 8 Normal 5-15 [facility] Comment on above: Performed By: #### L 100.0100, L500.4050, L500.4100, L501.9520 #### [facility] [address] [place], [address] GFR/1.73 sq M.predicted among non-blacks MDRD (S/P/Bld) [Vol rate/Area] 87 mL/min/{1.73_m2} Normal >60 [facility] Comment on above: Result Comment: Non- GFR Calc Performed By: #### L 100.0100, L500.4050, L500.4100, L501.9520 #### [facility] [address] [place], [address] Globulin (S) [Mass/Vol] 3.7 g/dL Normal 2.2-4.2 [facility] Comment on above: Performed By: #### L 100.0100, L500.4050, L500.4100, L501.9520 #### [facility] [address] [place], [address] Glucose [Mass/Vol] 128 mg/dL High 74-106 [facility] Comment on above: Result Comment: Fast ing Glucose result greater than or equal to 126 mg/dL suggests DIABETES MELLITUS per A.D.A. criteria. Performed By: #### L 100.0100, L500.4050, L500.4100, L501.9520 #### [facility] [address] [place], [address] Potassium [Moles/Vol] 4.1 mmol/L Normal 3.5-5.1 [facility] Comment on above: Performed By: #### L 100.0100, L500.4050, L500.4100, L501.9520 #### [facility] [address] [place], [address] Sodium [Moles/Vol] 137 mmol/L Normal 136-145 [facility] Comment on above: Performed By: #### L 100.0100, L500.4050, L500.4100, L501.9520 #### [facility] [address] [place], [address] T PROT 7.5 g/dL Normal 6.4-8.2 [facility] Comment on above: Performed By: #### L 100.0100, L500.4050, L500.4100, L501.9520 #### [facility] [address] [place], [address] Urea nitrogen [Mass/Vol] 15 mg/dL Normal 7-18 [facility] Comment on above: Performed By: #### L 100.0100, L500.4050, L500.4100, L501.9520 #### [facility] [address] [place], [address] Determination of erythrocyte mean corpuscular volume (MCV)Ordered By: Naima Kumar on 12-21-2023 MCV (RBC) [Entitic vol] 94.4 fL 81-99 [facility] Erythrocyte distribution wid th ratioOrdered By: Naima Kumar on 12-21-2023 Erythrocyte distribution width (RBC) [Ratio] 13.3 % 11.6-14.6 [facility] Erythrocyte distribution wid th standard deviationOrdered By: Naima Kumar on 12-21-2023 Erythrocyte distribution width (RBC) [Entitic vol] 46.3 fL 35.1-43.9 [facility] Hematocrit Auto (Bld) [Volum e fraction]Ordered By: Naima Kumar on 12-21-2023 Hematocrit (Bld) [Volume fraction] 47.3 % 37-47 [facility] Immature granulocytes/100 WB C Auto (Bld)Ordered By: Naima Kumar on 12-21-2023 Immature granulocytes/100 WBC (Bld) 0.200 % 0.0-0.9 [facility] Comment on above: IG% - Immature Granu locytes (promyelocytes, myelocytes and metamyelocytes) > 1% indicates that a LEFT SHIFT is Present. Laboratory - Chemistry and C hemistry - challengeOrdered By: Naima Kumar on 12-21-2023 Albumin/Globulin [Mass ratio] 1.0 {ratio} 0.9-2.4 [facility] ALP [Catalytic activity/Vol] 105 U/L 45-117 [facility] ALT [Catalytic activity/Vol] 24 U/L 13-56 [facility] Cholesterol in HDL [Mass/Vol] 34 mg/dL >40 [facility] Comment on above: The drugs N-Acetylcy steine and Metamizole may falsely depress this assay. Reference Range HDL <40 mg/dL Low HDL Cholesterol HDL >or= 60 mg/dL High HDL Cholesterol Cholesterol in LDL [Mass/Vol] 164 mg/dL 0-130 [facility] CO2 [Moles/Vol] 24.0 mmol/L 21.0-32.0 [facility] Globulin (S) [Mass/Vol] 3.7 g/dL 2.2-4.2 [facility] Urea nitrogen/Creatinine [Mass ratio] 20.8 mg/mg 10-20 [facility] Laboratory - Hematology and Cell countsOrdered By: Naima Kumar on 12-21-2023 MCH (RBC) [Entitic mass] 30.3 pg 27.0-32.0 [facility] MCHC (RBC) [Mass/Vol] 32.1 g/dL 32-36 [facility] Nucleated RBC/100 WBC (Bld) [Ratio] 0 % 0-5 [facility] Platelet mean volume (Bld) [Entitic vol] 12.9 fL 6.2-12.0 [facility] Platelets (Bld) [#/Vol] 226 10*3/uL 150-450 [facility] Laboratory - Hematology and Cell countson 12-21-2023 HbA1c (Bld) [Mass fraction] 6.8 % 4.2-6.3 [facility] Lipid Profileon 12-21-2023 Cholesterol [Mass/Vol] 268 mg/dL High [address] [facility] Comment on above: Result Comment: <200 mg/dL Desirable 200-240 mg/dL Borderline >240 mg/dL High Risk Performed By: #### L 100.0100, L500.4050, L500.4100, L501.9520 #### [facility] [address] [place], [address] Cholesterol in HDL [Mass/Vol] 34 mg/dL Low [facility] Comment on above: Result Comment: The drugs N-Acetylcysteine and Metamizole may falsely depress this assay. Reference Range HDL <40 mg/dL Low HDL Cholesterol HDL >or= 60 mg/dL High HDL Cholesterol Performed By: #### L 100.0100, L500.4050, L500.4100, L501.9520 #### [facility] [address] [place], [address] Cholesterol in LDL [Mass/Vol] 164 mg/dL High 0-130 [facility] Comment on above: Performed By: #### L 100.0100, L500.4050, L500.4100, L501.9520 #### [facility] [address] [place], [address] Cholesterol in VLDL [Mass/Vol] 70 mg/dL High 5-40 [facility] Comment on above: Performed By: #### L 100.0100, L500.4050, L500.4100, L501.9520 #### [facility] [address] [place], [address] Triglyceride [Mass/Vol] 348 mg/dL High [facility] Comment on above: Result Comment: The drugs N-Acetylcysteine and Metamizole may falsely depress this assay. Serum Triglycerides Reference Interval Normal <150 mg/dL Borderline high 150 - 199 mg/dL High 200 - 499 mg/dL Very High > or = 500 mg/dL Performed By: #### L 100.0100, L500.4050, L500.4100, L501.9520 #### [facility] [address] [place], [place], [address] No Panel InformationOrdered By: Naima Kumar on 12-21-2023 Estimated GFR (MDRD) Amer 106 mL/min >60 [facility] Comment on above: GFR Calc Estimated GFR (MDRD) Non-Af Amer 87 mL/min >60 [facility] Comment on above: Non- GFR Calc VLDL Cholesterol 70 mg/dL 5-40 [facility] RBC Auto (Bld) [#/Vol]Ordere d By: Naima Kumar on 12-21-2023 RBC (Bld) [#/Vol] 5.01 10*6/uL 4.2-5.4 [facility] Serum or plasma calcium sylvia urement (mass/volume)Ordered By: Naima Kumar on 12-21-2023 Calcium [Mass/Vol] 9.2 mg/dL 8.5-10.1 [facility] Serum or plasma creatinine m easurement (mass/volume)Ordered By: Naima Kumar on 12-21-2023 Creatinine [Mass/Vol] 0.72 mg/dL 0.55-1.02 [facility] Comment on above: The validity of the calculated GFR & GFRAA in patients over 70 years has not been determined. Clinical correlation is essential. Serum or plasma thyroid stim ulating hormone (TSH) measurement (units/volume)Ordered By: Naima Kumar on 12-21-2023 TSH Qn 1.15 uIU/mL 0.358-3.74 [facility] Serum or plasma urea nitroge n measurement (mass/volume)Ordered By: Naima Kumar on 12-21-2023 Urea nitrogen [Mass/Vol] 15 mg/dL 7-18 [facility] Thin prep Papanicolaou smear with manual screeningOrdered By: Naima Kumar on 12-21-2023 Thin prep Papanicolaou smear with manual screening 3.8 g/dL 3.2-5.0 [facility] Thin prep Papanicolaou smear with manual screening 14 U/L 15-37 [facility] Thin prep Papanicolaou smear with manual screening 8 5-15 [facility] Thyroid Stim Hormone (TSH)on 12-21-2023 TSH 1.15 uIU/mL Normal 0.358-3.74 [facility] Comment on above: Performed By: #### L 100.0100, L500.4050, L500.4100, L501.9520 #### [facility] [address] [place], [address] Absolute lymphocyte countOrd ered By: Naima Kumar on 12-21-2022 Lymphocytes Auto (Unsp spec) [#/Vol] 3.87 10*3/uL 0.83-4.51 [facility] Basophil percentageOrdered B y: Naima Kumar on 12-21-2022 Basophils/100 WBC (Bld) 1.0 % 0-1 [facility] Bilirubin [Mass/Vol] 0.30 mg/dL 0.20-1.00 [facility] Comment on above: For patients on eltr ombopag therapy, use of [place] TBIL is not recommended. Chloride [Moles/Vol] 100 mmol/L 98-107 [facility] Cholesterol [Mass/Vol] 306 mg/dL <[address] [facility] Comment on above: <200 mg/dL Desirable 200-240 mg/dL Borderline >240 mg/dL High Risk Eosinophils/100 WBC (Bld) 1.3 % 0-5 [facility] Glucose [Mass/Vol] 205 mg/dL 74-106 [facility] Comment on above: Glucose result great er than or equal to 200 mg/dLsuggests DIABETES MELLITUS per A.D.A. criteria. Neutrophils (Bld) [#/Vol] 3.8 10*3/uL 2.0-7.7 [facility] Neutrophils/100 WBC (Bld) 43.8 % 47-70 [facility] Potassium [Moles/Vol] 4.1 mmol/L 3.5-5.1 [facility] Protein [Mass/Vol] 7.8 g/dL 6.4-8.2 [facility] Sodium [Moles/Vol] 133 mmol/L 136-145 [facility] Triglyceride [Mass/Vol] 648 mg/dL <199 [facility] Comment on above: The drugs N-Acetylcy steine and Metamizole may falsely depress this assay. TRIGLYCERIDE IS GREATER THAN 400 mg/dL. LDL RESULT IS INVALID AND WILL NOT BE REPORTED.Serum Triglycerides Reference Interval Normal <150 mg/dL Borderline high 150 - 199 mg/dL High 200 - 499 mg/dL Very High > or = 500 mg/dL WBC (Bld) [#/Vol] 8.7 10*3/uL 4.4-11.0 [facility] Blood erythrocytes count (nu mber/volume)Ordered By: Naima Kumar on 12-21-2022 RBC (Bld) [#/Vol] 5.21 10*6/uL 4.2-5.4 [facility] Blood hemoglobin measurement (mass/volume)Ordered By: Naima Kumar on 12-21-2022 Hemoglobin (Bld) [Mass/Vol] 16.0 g/dL 12.0-15.0 [facility] Blood lymphocytes/100 leukoc ytesOrdered By: Naima Kumar on 12-21-2022 Lymphocytes/100 WBC (Bld) 44.4 % 19-41 [facility] Blood monocytes/100 leukocyt esOrdered By: Naima Kumar on 12-21-2022 Monocytes/100 WBC (Bld) 9.2 % 0-10 [facility] Blood platelet mean volumeOr dered By: Naima Kumar on 12-21-2022 Platelet mean volume (Bld) [Entitic vol] 12.7 fL 6.2-12.0 [facility] Determination of erythrocyte mean corpuscular volume (MCV)Ordered By: Naima Kumar on 12-21-2022 MCV (RBC) [Entitic vol] 92.3 fL 81-99 [facility] Hematocrit Auto (Bld) [Volum e fraction]Ordered By: Naima Kumar on 12-21-2022 Hematocrit (Bld) [Volume fraction] 48.1 % 37-47 [facility] - Chemistry and C hemistry - challengeOrdered By: Naima Kumar on 12-21-2022 ALP [Catalytic activity/Vol] 116 U/L 45-117 [facility] ALT [Catalytic activity/Vol] 36 U/L 13-56 [facility] CO2 [Moles/Vol] 26.0 mmol/L 21.0-32.0 [facility] Globulin (S) [Mass/Vol] 3.8 g/dL 2.2-4.2 [facility] Urea nitrogen/Creatinine [Mass ratio] 23.4 mg/mg 10-20 [facility] - Hematology and Cell countsOrdered By: Naima Kumar on 12-21-2022 Erythrocyte distribution width (RBC) [Entitic vol] 44.4 fL 35.1-43.9 [facility] Erythrocyte distribution width (RBC) [Ratio] 13.1 % 11.6-14.6 [facility] Immature granulocytes/100 WBC (Bld) 0.300 % 0.0-0.9 [facility] Comment on above: IG% - Immature Granu locytes (promyelocytes, myelocytes and metamyelocytes) > 1% indicates that a LEFT SHIFT is Present. MCH (RBC) [Entitic mass] 30.7 pg 27.0-32.0 [facility] Nucleated RBC/100 WBC (Bld) [Ratio] 0 % 0-5 [facility] MCHC Auto (RBC) [Mass/Vol]Or dered By: Naima Kumar on 12-21-2022 MCHC (RBC) [Mass/Vol] 33.3 g/dL 32-36 [facility] No Panel InformationOrdered By: Naima Kumar on 12-21-2022 Estimated GFR (MDRD) Amer 121 mL/min >60 [facility] Comment on above: GFR Calc Estimated GFR (MDRD) Non-Af Amer 100 mL/min >60 [facility] Comment on above: Non- GFR Calc Platelets bldOrdered By: Jamie Kumar on 12-21-2022 Platelets (Bld) [#/Vol] 231 10*3/uL 150-450 [facility] Serum or plasma albumin sylvia urement (mass/volume)Ordered By: Naima Kumar on 12-21-2022 Albumin [Mass/Vol] 4.0 g/dL 3.2-5.0 [facility] Serum or plasma albumin/glob ulin mass ratioOrdered By: Naima Kumar on 12-21-2022 Albumin/Globulin [Mass ratio] 1.1 {ratio} 0.9-2.4 [facility] Serum or plasma calcium sylvia urement (mass/volume)Ordered By: Naima Kumar on 12-21-2022 Calcium [Mass/Vol] 9.3 mg/dL 8.5-10.1 [facility] Serum or plasma cholesterol in HDL measurement (mass/volume)Ordered By: Naima Kumar on 12-21-2022 Cholesterol in HDL [Mass/Vol] 30 mg/dL >40 [facility] Comment on above: The drugs N-Acetylcy steine and Metamizole may falsely depress this assay. Reference Range HDL <40 mg/dL Low HDL Cholesterol HDL >or= 60 mg/dL High HDL Cholesterol Serum or plasma cholesterol in VLDL measurement (mass/volume)Ordered By: Naima Kumar on 12-21-2022 Cholesterol in VLDL [Mass/Vol] TNP [facility] Comment on above: Test not performed Serum or plasma creatinine m easurement (mass/volume)Ordered By: Naima Kumar on 12-21-2022 Creatinine [Mass/Vol] 0.64 mg/dL 0.55-1.02 [facility] Comment on above: The validity of the calculated GFR & GFRAA in patients over 70 years has not been determined. Clinical correlation is essential. Serum or plasma low density lipoprotein (LDL) cholesterol measurement (mass/volume)Ordered By: Naima Kumar on 12-21-2022 Cholesterol in LDL [Mass/Vol] TNP [facility] Comment on above: Test not performed Serum or plasma urea nitroge n measurement (mass/volume)Ordered By: Naima Kumar on 12-21-2022 Urea nitrogen [Mass/Vol] 15 mg/dL 7-18 [facility] Thin prep Papanicolaou smear with manual screeningOrdered By: Naima Kumar on 12-21-2022 Thin prep Papanicolaou smear with manual screening 23 U/L 15-37 [facility] Thin prep Papanicolaou smear with manual screening 7 5-15 [facility] Whole blood hemoglobin A1c/t otal hemoglobin ratio (mass fraction)Ordered By: Naima Kumar on 12-21-2022 HbA1c (Bld) [Mass fraction] 10.8 % 3.8-5.6 [facility] Comment on above: Normal < 5.7 % Predi abetic 5.7 - 6.4 % Diabetic >or= 6.5 % Please note range changes. Absolute lymphocyte counton 12-14-2021 Lymphocytes Auto (Unsp spec) [#/Vol] 3.60 10*3/uL 0.83-4.51 [facility] Work Phone: Basophil percentageon 2021 Basophils/100 WBC (Bld) 0.8 % 0-1 [facility] Work Phone: Bilirubin [Mass/Vol] 0.30 mg/dL 0.20-1.00 [facility] Work Phone: Comment on above: For patients on eltr ombopag therapy, use of [place] TBIL is not recommended. Chloride [Moles/Vol] 102 mmol/L 98-107 [facility] Work Phone: Cholesterol [Mass/Vol] 302 mg/dL <[address] [facility] Work Phone: Comment on above: <200 mg/dL Desirable 200-240 mg/dL Borderline >240 mg/dL High Risk Eosinophils/100 WBC (Bld) 1.1 % 0-5 [facility] Work Phone: Glucose [Mass/Vol] 244 mg/dL 74-106 [facility] Work Phone: Comment on above: Glucose result great er than or equal to 200 mg/dLsuggests DIABETES MELLITUS per A.D.A. criteria. Neutrophils (Bld) [#/Vol] 4.6 10*3/uL 2.0-7.7 [facility] Work Phone: Neutrophils/100 WBC (Bld) 49.4 % 47-70 [facility] Work Phone: Potassium [Moles/Vol] 4.6 mmol/L 3.5-5.1 [facility] Work Phone: Comment on above: Slight Hemolysis, Re sult may be falsely increased. Protein [Mass/Vol] 7.8 g/dL 6.4-8.2 [facility] Work Phone: Sodium [Moles/Vol] 135 mmol/L 136-145 [facility] Work Phone: Triglyceride [Mass/Vol] 749 mg/dL [facility] Work Phone: Comment on above: The drugs N-Acetylcy steine and Metamizole may falsely depress this assay. TRIGLYCERIDE IS GREATER THAN 400 mg/dL. LDL RESULT IS INVALID AND WILL NOT BE REPORTED.Serum Triglycerides Reference Interval Normal <150 mg/dL Borderline high 150 - 199 mg/dL High 200 - 499 mg/dL Very High > or = 500 mg/dL WBC (Bld) [#/Vol] 9.3 10*3/uL 4.4-11.0 [facility] Work Phone: Blood erythrocytes count (nu mber/volume)on 12-14-2021 RBC (Bld) [#/Vol] 5.19 10*6/uL 4.2-5.4 [facility] Work Phone: Blood hemoglobin measurement (mass/volume)on 12-14-2021 Hemoglobin (Bld) [Mass/Vol] 16.3 g/dL 12.0-15.0 [facility] Work Phone: Blood lymphocytes/100 leukoc yteson 12-14-2021 Lymphocytes/100 WBC (Bld) 38.7 % 19-41 [facility] Work Phone: Blood monocytes/100 leukocyt eson 12-14-2021 Monocytes/100 WBC (Bld) 9.7 % 0-10 [facility] Work Phone: Blood platelet mean volumeon 12-14-2021 Platelet mean volume (Bld) [Entitic vol] 13.1 fL 6.2-12.0 [facility] Work Phone: Determination of erythrocyte mean corpuscular volume (MCV)on 12-14-2021 MCV (RBC) [Entitic vol] 91.5 fL 81-99 [facility] Work Phone: Hematocrit Auto (Bld) [Volum e fraction]on 12-14-2021 Hematocrit (Bld) [Volume fraction] 47.5 % 37-47 [facility] Work Phone: Laboratory - Chemistry and C hemistry - challengeon 12-14-2021 ALP [Catalytic activity/Vol] 80 U/L 45-117 [facility] Work Phone: ALT [Catalytic activity/Vol] 37 U/L 13-56 [facility] Work Phone: CO2 [Moles/Vol] 23.0 mmol/L 21.0-32.0 [facility] Work Phone: Globulin (S) [Mass/Vol] 3.7 g/dL 2.2-4.2 [facility] Work Phone: Urea nitrogen/Creatinine [Mass ratio] 27.1 mg/mg 10-20 [facility] Work Phone: Laboratory - Hematology and Cell countson 12-14-2021 Erythrocyte distribution width (RBC) [Entitic vol] 48.2 fL 35.1-43.9 [facility] Work Phone: Erythrocyte distribution width (RBC) [Ratio] 14.3 % 11.6-14.6 [facility] Work Phone: Immature granulocytes/100 WBC (Bld) 0.300 % 0.0-0.9 [facility] Work Phone: Comment on above: IG% - Immature Granu locytes (promyelocytes, myelocytes and metamyelocytes) > 1% indicates that a LEFT SHIFT is Present. MCH (RBC) [Entitic mass] 31.4 pg 27.0-32.0 [facility] Work Phone: Nucleated RBC/100 WBC (Bld) [Ratio] 0 % 0-5 [facility] Work Phone: HbA1c (Bld) [Mass fraction] 9.2 % [facility] Work Phone: MCHC Auto (RBC) [Mass/Vol]on 12-14-2021 MCHC (RBC) [Mass/Vol] 34.3 g/dL 32-36 [facility] Work Phone: No Panel Informationon 12-14 Digoxin Level 1.21 ng/mL 0.80-2.00 [facility] Work Phone: Estimated GFR (MDRD) Amer 98 mL/min >60 [facility] Work Phone: Comment on above: GFR Calc Estimated GFR (MDRD) Non-Af Amer 81 mL/min >60 [facility] Work Phone: Comment on above: Non- GFR Calc Platelets bldon 12-14-2021 Platelets (Bld) [#/Vol] 245 10*3/uL 150-450 [facility] Work Phone: Serum or plasma albumin sylvia urement (mass/volume)on 12-14-2021 Albumin [Mass/Vol] 4.1 g/dL 3.2-5.0 [facility] Work Phone: Serum or plasma albumin/glob ulin mass ratioon 12-14-2021 Albumin/Globulin [Mass ratio] 1.1 {ratio} 0.9-2.4 [facility] Work Phone: Serum or plasma calcium sylvia urement (mass/volume)on 12-14-2021 Calcium [Mass/Vol] 9.5 mg/dL 8.5-10.1 [facility] Work Phone: Serum or plasma cholesterol in HDL measurement (mass/volume)on 12-14-2021 Cholesterol in HDL [Mass/Vol] 31 mg/dL [facility] Work Phone: Comment on above: The drugs N-Acetylcy steine and Metamizole may falsely depress this assay. Reference Range HDL <40 mg/dL Low HDL Cholesterol HDL >or= 60 mg/dL High HDL Cholesterol Serum or plasma cholesterol in VLDL measurement (mass/volume)on 12-14-2021 Cholesterol in VLDL [Mass/Vol] [facility] Work Phone: Comment on above: Test not performed Serum or plasma creatinine m easurement (mass/volume)on 12-14-2021 Creatinine [Mass/Vol] 0.78 mg/dL 0.55-1.02 [facility] Work Phone: Comment on above: The validity of the calculated GFR & GFRAA in patients over 70 years has not been determined. Clinical correlation is essential. Serum or plasma low density lipoprotein (LDL) cholesterol measurement (mass/volume)on 12-14-2021 Cholesterol in LDL [Mass/Vol] [facility] Work Phone: Comment on above: Test not performed Serum or plasma urea nitroge n measurement (mass/volume)on 12-14-2021 Urea nitrogen [Mass/Vol] 21 mg/dL 7-18 [facility] Work Phone: Thin prep Papanicolaou smear with manual screeningon 12-14-2021 Thin prep Papanicolaou smear with manual screening 17 U/L 15-37 [facility] Work Phone: Comment on above: Slight Hemolysis, Re sult may be falsely increased. Thin prep Papanicolaou smear with manual screening 10 5-15 [facility] Work Phone: CNOVon 09-28-2021 CNOV Office Visit ([facility]) ERNESTINA HUSTON ([id number]) 1960 F Date Time Provider Department 09/28/21 5:30 PM NARINDER PARSONS [facility] During your visit today, we recorded the following information about you: Temperature Pulse Respiration Blood pressure 99.5 degrees 109/minute 22/minute 110/72 Weight 96.2 kg Narinder Parsons PA-C 09/28/2021 7:15 PM Signed Subjective HPI HPI Ernestina Huston is a 61 year old female who presents today for CC of progressive cough x 3 days. Had fevers at the beginning, with Tmax 104. Suspects covid as her was just positive 1 week ago. PMH significant for CHF and has defibrillator/pacema ker. Denies any SOB, chest pain, or heart palpitations. Says she typically sats at 100% and pulse is typically about 88. BP 110/72 Pulse 109 Temp 37.5 ?C (99.5 ?F) Resp 22 Wt 96.2 kg (212 lb) SpO2 92% ALLERGIES No Known Allergies There is no problem list on file for this patient. No family history on file. Social History Tobacco Use - Smoking status: Never Smoker - Smokeless tobacco: Never Used Substance Use Topics - Alcohol use: Not on file - Drug use: Not on file ROS Objective Physical Exam ASSESSMENT/PLAN: 1. Abnormal pulse oximetry - ICD9: 790.91, ICD10: R79.81 (primary diagnosis) Given pt's PMH, as well as current vitals, I am concerned about her respiratory status and suspect probable COVID pneumonia. Discussed concerns with patient and explained that she requires a higher level of care than we can currently provide, and may possibly require admission. 2. Tachycardia - ICD9: 785.0, ICD10: R00.0 See above The patient indicates understanding of these issues and agrees with the plan; her will drive her over to [facility] at this time. Report sent over via ER passport. Narinder Parsons PA-C Referring Provider: SELF [[id number]] Allergies As of Date: 09/28/2021 (No Known Allergies) Date Reviewed: 09/28/2021 Reviewed by: Salud Anthony MA - Fully Assessed Reason for Visit: Cough [28] Cmt: chest congestion x 3-4 days Primary Visit Diagnosis:Abnormal pulse oximetry [R79.81] Other Visit Diagnosis:Tachycardi a [R00.0] Problem List As Of Date: 09/28/2021 (None) Letter Text Encounter Status:Closed by NARINDER PARSONS on 09/28/21 Normal [facility] No Panel Informationon 09-28 SARS-CoV-2 Antigen (Rapid) SARS-CoV-2 (COVID 19) [facility] Work Phone: Catheterization and angiogra phy procedure details panelon 08-16-2021 Chuck Haskins MD 08/16/2021 8:44 AM [facility] ELECTROPHYSIOLOGY [facility] ICD GENERATOR EXCHANGE NOTE Date: 08/16/2021 Patient: Ernestina Huston : 1960 Clinical Diagnosis: I50.22 Chronic Systolic Heart Failure and Nonischemic Cardiomyopathy Procedure: Bi-Ventricular ICD Generator Replacement After obtaining informed consent, the patient was brought to the EP lab. Sedation and analgesia were achieved with per anesthesia service. The Left Shoulder Area was prepped and draped in the usual sterile manner. The skin and subcutaneous tissue were infiltrated with local lidocaine. An incision was made over the Left Shoulder Area. Using electrocautery and blunt dissection the generator was removed from the pocket and leads inspected visually. Number of Chronic Leads Tested: 3 Lead 1 location: RA Appendage Implanted via: N/A Model number: [id number] Serial Number: [id number] Sensin.1 mV Threshold: 0.5 V @ 0.5 ms Impedance: 440 ohms Lead 2 location: RV Berger Implanted via: N/A Model number: [id number] Serial Number: [id number] Sensin mV Threshold: 0.87 V @ 0.5 ms Impedance: 690 ohms Lead 3 location: LV Branch via coronary sinus Implanted via: N/A Model number: [id number] Serial Number: [id number] Sensing: na mV Threshold: 0.62 V @ 0.5 ms Impedance: 860 ohms Pacing configuration: LV3 to LV4 After washing the pocket with gentamycin containing saline, the leads were attached to the new ICD generator. ICD generator model: [id number] Serial number: [id number] The generator was placed in the Left pre-pectoral fascia. CHRONIC generator removed: [id number] The subcutaneous tissue was closed with Vicryl sutures and skin was approximated with running Vicryl sutures. Was DFT performed? No VF was induced via: N/A DFT N/A J Shock Vector: can to coil Shock Impedance: 88 ohms The device was programmed as follows: Pacing mode: DDD Pacing Rate: 120 bpm Number of tachy zones: 2 Tachy Zone 1: 240 BPM Tachy Zone 1 Therapies: 30J x 1, 40 J x 5 Tachy Zone 2: 181 BPM Tachy Zone 2 Therapies: ATP x 3, 25 J, 30 J, 40 J x 2 Tachy Zone 3: N/A BPM Tachy Zone 3 Therapies: N/A Fluoro Time: N/A minutes Upper extremity venogram: No Estimated blood loss: Minimal Complications: None Comments: tyrx used CHUCK HASKINS MD 08/16/2021 [facility] CARDIOLOG[facility] Work Phone: EP NURSE PROCEDURE REPORTon 08-16-2021 [facility] Basic Metabolic Panelon - Anion gap [Moles/Vol] 9 mmol/L Normal 3-13 [facility] Comment on above: Performed By: #### H EMOErik BMP3 #### [address] [id number] Calcium [Mass/Vol] 9.3 mg/dL Normal 8.4-10.4 [facility] Comment on above: Performed By: #### H EMOErik BMP3 #### [facility] [address] [place] [address] CO2 [Moles/Vol] 22 mmol/L Normal 22-30 [facility] Comment on above: Performed By: #### H EMOErik BMP3 #### [facility] [address] [place] [address] Glucose [Mass/Vol] 277 mg/dL High 70-100 [facility] Comment on above: Performed By: #### H EMOErik, BMP3 #### [address] [address] Urea nitrogen [Mass/Vol] 14 mg/dL Normal 9-20 [facility] Comment on above: Performed By: #### H RANDY BMP3 #### [address] Creatinine [Mass/Vol] 0.52 mg/dL Normal 0.52-1.25 [facility] Comment on above: Performed By: #### CHRISTIANE BELL3 #### [address] eGFR OTHER > 90.0 Normal >60 [facility] Comment on above: Result Comment: KDIG O guidelines provide the following GFR categories: Stage GFR(ml/min/1.73 m2) Terms G1 >=90 Normal or high G2 60-89 Mildly decreased* G3a 45-59 Mildly to moderately decreased G3b 30-44 Moderately to severely decreased G4 15-29 Severely decreased G5 <15 Kidney failure *Relative to young adult level. In the absence of evidence of kidney damage, neither GFR category G1 nor G2 fulfill the criteria for CKD. The CKD-EPI equation is validated in individuals 18 years of age and older. Currently the best equation for estimating glomerular filtration rate (GFR) from serum creatinine in children is the Bedside Roberts equation. It is less accurate in patients with extremes of muscle mass, restriction of dietary protein, ingestion of creatine, extra-renal metabolism of creatinine, or treatment with medications that affect renal tubular creatinine secretion. Performed By: #### H AIDEN PADILLA #### [address] GFR/1.73 sq M.predicted among blacks MDRD (S/P/Bld) [Vol rate/Area] mL/min/{1.73_m2} Normal >60 [facility] Comment on above: Performed By: #### CHRISTIANE BELL3 #### [address] Potassium [Moles/Vol] 4.7 mmol/L Normal 3.5-5.1 [facility] Comment on above: Performed By: #### CHRISTIANE BELL3 #### [address] Chloride [Moles/Vol] 102 mmol/L Normal 98-107 [facility] Comment on above: Performed By: #### CHRISTIANE BELL3 #### [address] Sodium [Moles/Vol] 133 mmol/L Low 135-145 [facility] Comment on above: Performed By: #### H RANDY BMP3 #### [place] [address] [address] [place], [place] Hemogramon 07-22-2021 Erythrocyte distribution width (RBC) [Ratio] 13.9 % Normal 11.5-14.5 [facility] Comment on above: Performed By: #### H RANDY BMP3 #### [place] [address] [address] [place], [place] Hematocrit (Bld) [Volume fraction] 47.1 % High 35.0-47.0 [facility] Comment on above: Performed By: #### H RANDY BMP3 #### [place] [address] [place], [place] Hemoglobin (Bld) [Mass/Vol] 15.4 g/dL Normal 11.7-16.0 [facility] Comment on above: Performed By: #### Tita PADILLA BMP3 #### [place] [address] [address] [place], [place] MCH (RBC) [Entitic mass] 30.3 pg Normal 26.0-34.0 [facility] Comment on above: Performed By: #### H RANDY BMP3 #### [place] [address] [address] [place], [place] MCHC 32.7 % Normal 32.0-36.0 [facility] Comment on above: Performed By: #### H RANDY BMP3 #### [place] [address] [address] [place], [place] MCV (RBC) [Entitic vol] 92.6 fL Normal 79.0-98.0 [facility] Comment on above: Performed By: #### H RANDY BMP3 #### [place] [address] [place], [place] Platelet mean volume (Bld) [Entitic vol] 11.4 fL High 7.4-10.4 [facility] Comment on above: Performed By: #### H EMOG, BMP3 #### [facility] [address] [place] [address] Platelets (Bld) [#/Vol] 206 10*3/uL Normal 140-440 [facility] Comment on above: Performed By: #### H RANDY, BMP3 #### [facility] [address] [place] [address] RBC (Bld) [#/Vol] 5.09 10*6/uL Normal 3.80-5.20 [facility] Comment on above: Performed By: #### H RANDY, BMP3 #### [facility] [address] [place] [address] WBC (Bld) [#/Vol] 7.0 10*3/uL Normal 3.6-10.7 [facility] Comment on above: Performed By: #### H RANDY BMP3 #### [facility] [address] [place] [address] Hemogramon 05-04-2020 Erythrocyte distribution width (RBC) [Ratio] 13.6 % Normal 11.5-15.9 [facility] Comment on above: Performed By: #### L CBC #### [facility] [address] [place], [place] [address] Hematocrit (Bld) [Volume fraction] 45.0 % Normal 37.0-47.0 [facility] Comment on above: Performed By: #### L CBC #### [address] [address] Hemoglobin (Bld) [Mass/Vol] 14.7 g/dL Normal 12.0-16.0 [facility] Comment on above: Performed By: #### L CBC #### [facility] [address] [place], [place] [address] MCH (RBC) [Entitic mass] 30.6 pg Normal 27.0-31.0 [facility] Comment on above: Performed By: #### L CBC #### [address] [address] MCHC (RBC) [Mass/Vol] 32.7 % Normal 32.0-36.0 [facility] Comment on above: Performed By: #### L CBC #### [facility] [address] [place], [place] [address] MCV (RBC) [Entitic vol] 93.6 fL Normal 81.0-99.0 [facility] [place] Comment on above: Performed By: #### L CBC #### [facility] [address] [place], [place] [address] Platelet mean volume (Bld) [Entitic vol] 12.6 fL High 7.1-10.5 [facility] Comment on above: Performed By: #### L CBC #### [facility] [address] [place], [place] [address] Platelets (Bld) [#/Vol] 221 thou/cmm Normal 150-400 [facility] Comment on above: Performed By: #### L CBC #### [facility] [address] [place], [place] [address] RBC (Bld) [#/Vol] 4.81 mil/cmm Normal 4.20-5.40 [facility] Comment on above: Performed By: #### L CBC #### [facility] [address] [place], [place] [address] WBC (Bld) [#/Vol] 7.8 thou/cmm Normal 4.8-10.5 [facility] Comment on above: Performed By: #### L CBC #### [facility] [address] [place], [place] [address] Vital Signs Date Time Vital Sign Value Performing Clinician Facility 12-12-2024 15:19-0400 Body height 165.1 cm Naima ORTIZC Work Phone: [facility] 12-12-2024 15:19-0400 Body mass index (BMI) [Ratio] 33.7 kg/m2 Naima ORTIZC Work Phone: [facility] 12-12-2024 15:19-0400 Body temperature 97.5 [degF] Naima Kumar NP-C Work Phone: [facility] 12-12-2024 15:19-0400 Body weight 92.07 kg Naima Kumar RUBBER PRODUCTION MACHINE OPERATOR-C Work Phone: [facility] 12-12-2024 15:19-0400 Diastolic blood pressure 80 mm[Hg] Naima Kumar RUBBER PRODUCTION MACHINE OPERATOR-C Work Phone: [facility] 12-12-2024 15:19-0400 Heart rate 86 /min Naimajosette Kumar RUBBER PRODUCTION MACHINE OPERATOR-C Work Phone: [facility] 12-12-2024 15:19-0400 Respiratory rate 18 /min Naimajosette Kumar RUBBER PRODUCTION MACHINE OPERATOR-C Work Phone: [facility] 12-12-2024 15:19-0400 SaO2% (BldA) [Mass fraction] 97 % Naima Kumar RUBBER PRODUCTION MACHINE OPERATOR-C Work Phone: [facility] 12-12-2024 15:19-0400 Systolic blood pressure 130 mm[Hg] Naima Kumar RUBBER PRODUCTION MACHINE OPERATOR-C Work Phone: [facility] 12-09-2024 21:53-0400 Body temperature 98.2 [degF] Naima Kumar RUBBER PRODUCTION MACHINE OPERATOR-C Work Phone: [facility] 12-09-2024 21:53-0400 Diastolic blood pressure 56 mm[Hg] Naima Kumar RUBBER PRODUCTION MACHINE OPERATOR-C Work Phone: [facility] 12-09-2024 21:53-0400 Heart rate 79 /min Naima Kumar RUBBER PRODUCTION MACHINE OPERATOR-C Work Phone: [facility] 12-09-2024 21:53-0400 Respiratory rate 18 /min Naimajosette Kumar RUBBER PRODUCTION MACHINE OPERATOR-C Work Phone: [facility] 12-09-2024 21:53-0400 SaO2% (BldA) [Mass fraction] 96 % Naima Kumar RUBBER PRODUCTION MACHINE OPERATOR-C Work Phone: [facility] 12-09-2024 21:53-0400 Systolic blood pressure 141 mm[Hg] Naima Kumar RUBBER PRODUCTION MACHINE OPERATOR-C Work Phone: [facility] 12-09-2024 18:28-0400 Body height 165.1 cm Naima Kumar RUBBER PRODUCTION MACHINE OPERATOR-C Work Phone: [facility] 12-09-2024 18:28-0400 Body mass index (BMI) [Ratio] 36.6 kg/m2 Naima Kumar RUBBER PRODUCTION MACHINE OPERATOR-C Work Phone: [facility] 12-09-2024 18:28-0400 Body weight 99.79 kg Naima Kumar RUBBER PRODUCTION MACHINE OPERATOR-C Work Phone: [facility] 12-09-2024 17:39-0400 Body mass index (BMI) [Ratio] 35.2 kg/m2 Naimajosette Kumar RUBBER PRODUCTION MACHINE OPERATOR-C Work Phone: [facility] 12-09-2024 17:39-0400 Body temperature 97.9 [degF] Naima Kumar RUBBER PRODUCTION MACHINE OPERATOR-C Work Phone: [facility] 12-09-2024 17:39-0400 Body weight 92.98 kg Naima Kumar RUBBER PRODUCTION MACHINE OPERATOR-C Work Phone: [facility] 12-09-2024 17:39-0400 Diastolic blood pressure 70 mm[Hg] Naima Kumar RUBBER PRODUCTION MACHINE OPERATOR-C Work Phone: [facility] 12-09-2024 17:39-0400 Heart rate 90 /min Naima Kumar RUBBER PRODUCTION MACHINE OPERATOR-C Work Phone: [facility] 12-09-2024 17:39-0400 Respiratory rate 18 /min Naima Kumar RUBBER PRODUCTION MACHINE OPERATOR-C Work Phone: [facility] 12-09-2024 17:39-0400 SaO2% (BldA) [Mass fraction] 97 % Naima Kumar RUBBER PRODUCTION MACHINE OPERATOR-C Work Phone: [facility] 12-09-2024 17:39-0400 Systolic blood pressure 120 mm[Hg] Naima Kumar RUBBER PRODUCTION MACHINE OPERATOR-C Work Phone: [facility] 10-03-2024 17:19-0500 Diastolic blood pressure 60 mm[Hg] Naima Kumar RUBBER PRODUCTION MACHINE OPERATOR-C Work Phone: [facility] 10-03-2024 17:19-0500 Heart rate 96 /min Naima Kumar RUBBER PRODUCTION MACHINE OPERATOR-C Work Phone: [facility] 10-03-2024 17:19-0500 Respiratory rate 22 /min Naima José RUBBER PRODUCTION MACHINE OPERATOR-C Work Phone: [facility] 10-03-2024 17:19-0500 SaO2% (BldA) [Mass fraction] 97 % Naima Kumar RUBBER PRODUCTION MACHINE OPERATOR-C Work Phone: [facility] 10-03-2024 17:19-0500 Systolic blood pressure 70 mm[Hg] Naima Kumar RUBBER PRODUCTION MACHINE OPERATOR-C Work Phone: [facility] 10-03-2024 16:49-0500 Body mass index (BMI) [Ratio] 35.2 kg/m2 Naima Kumar RUBBER PRODUCTION MACHINE OPERATOR-C Work Phone: [facility] 10-03-2024 16:49-0500 Body temperature 97.3 [degF] Naima Kumar RUBBER PRODUCTION MACHINE OPERATOR-C Work Phone: [facility] 10-03-2024 16:49-0500 Body weight 92.98 kg Naima Kumar RUBBER PRODUCTION MACHINE OPERATOR-C Work Phone: [facility] 12-21-2023 15:04-0400 Body height 162.56 cm [facility] 12-21-2023 15:04-0400 Body mass index (BMI) [Ratio] 34 kg/m2 [facility] 12-21-2023 15:04-0400 Body temperature 97.2 [degF] [facility] 12-21-2023 15:04-0400 Body weight 89.81 kg [facility] 12-21-2023 15:04-0400 Diastolic blood pressure 60 mm[Hg] [facility] 12-21-2023 15:04-0400 Heart rate 72 /min [facility] 12-21-2023 15:04-0400 Respiratory rate 18 /min [facility] 12-21-2023 15:04-0400 SaO2% (BldA) [Mass fraction] 96 % [facility] 12-21-2023 15:04-0400 Systolic blood pressure 118 mm[Hg] [facility] 12-21-2022 19:18-0400 Body height 162.56 cm [facility] 12-21-2022 19:18-0400 Body mass index (BMI) [Ratio] 37 kg/m2 [facility] 12-21-2022 19:18-0400 Body temperature 97.3 [degF] [facility] 12-21-2022 19:18-0400 Body weight 97.97 kg [facility] 12-21-2022 19:18-0400 Diastolic blood pressure 80 mm[Hg] [facility] 12-21-2022 19:18-0400 Heart rate 84 /min [facility] 12-21-2022 19:18-0400 Respiratory rate 18 /min [facility] 12-21-2022 19:18-0400 SaO2% (BldA) [Mass fraction] 97 % [facility] 12-21-2022 19:18-0400 Systolic blood pressure 142 mm[Hg] [facility] 12-14-2021 18:20-0400 Body height 162.56 cm [facility] Work Phone: 12-14-2021 18:20-0400 Body mass index (BMI) [Ratio] 36.6 kg/m2 [facility] Work Phone: 12-14-2021 18:20-0400 Body temperature 97.3 [degF] [facility] Work Phone: 12-14-2021 18:20-0400 Body weight 96.61 kg [facility] Work Phone: 12-14-2021 18:20-0400 Diastolic blood pressure 70 mm[Hg] [facility] Work Phone: 12-14-2021 18:20-0400 Heart rate 92 /min [facility] Work Phone: 12-14-2021 18:20-0400 Respiratory rate 18 /min [facility] Work Phone: 12-14-2021 18:20-0400 SaO2% (BldA) [Mass fraction] 95 % [facility] Work Phone: 12-14-2021 18:20-0400 Systolic blood pressure 132 mm[Hg] [facility] Work Phone: 09-28-2021 20:26-0500 Heart rate 103 /min [facility] Work Phone: 09-28-2021 20:26-0500 Respiratory rate 20 /min [facility] Work Phone: 09-28-2021 20:26-0500 SaO2% (BldA) [Mass fraction] 93 % [facility] Work Phone: 09-28-2021 17:42-0500 Body mass index (BMI) [Ratio] 34.4 kg/m2 [facility] Work Phone: 09-28-2021 17:42-0500 Body temperature 97.7 [degF] [facility] Work Phone: 09-28-2021 17:42-0500 Body weight 91.17 kg [facility] Work Phone: 09-28-2021 17:42-0500 Diastolic blood pressure 86 mm[Hg] [facility] Work Phone: 09-28-2021 17:42-0500 Systolic blood pressure 144 mm[Hg] [facility] Work Phone: 08-16-2021 09:30-0500 Diastolic blood pressure 67 mm[Hg] Chuck Haskins MD Work Phone: [facility] 08-16-2021 09:30-0500 Heart rate 79 /min Chuck Haskins MD Work Phone: [facility] 08-16-2021 09:30-0500 Respiratory rate 27 /min Chuck Haskins MD Work Phone: [facility] 08-16-2021 09:30-0500 SaO2% (BldA) [Mass fraction] 90 % Chuck Haskins MD Work Phone: [facility] 08-16-2021 09:30-0500 Systolic blood pressure 116 mm[Hg] Chuck Haskins MD Work Phone: [facility] 08-16-2021 08:45-0500 Body temperature 97.39 [degF] Chuck Haskins MD Work Phone: [facility] 08-16-2021 06:48-0500 Body height 165.1 cm Chuck Haskins MD Work Phone: [facility] 08-16-2021 06:48-0500 Body mass index (BMI) [Ratio] 36.61 kg/m2 Chuck Haskins MD Work Phone: [facility] 08-16-2021 06:48-0500 Body weight 99.79 kg Chuck Haskins MD Work Phone: [facility] Encounters Encounter Date Encounter Type Care Provider Facility Start: 03-10-2025 End: 03-10-2025 ambulatory [facility] Start: 12-12-2024 End: 12-12-2024 ambulatory Naima Kumar RUBBER PRODUCTION MACHINE OPERATOR-C Work Phone: [facility] Work Phone: Start: 12-12-2024 End: 12-12-2024 Patient encounter procedure Naima Kumar RUBBER PRODUCTION MACHINE OPERATOR-C -Laboratory, Specimen Work Phone: Start: 12-12-2024 End: 12-12-2024 ambulatory Naima Kumar Facility:[facility] Start: 12-09-2024 End: 12-09-2024 Emergency department patient visit Naima Kumar Facility:[facility] Start: 12-04-2024 End: 12-04-2024 ambulatory [facility] Start: 10-03-2024 End: 10-03-2024 Patient encounter procedure Naima Kumar RUBBER PRODUCTION MACHINE OPERATOR-C -Laboratory, Specimen Work Phone: Start: 10-03-2024 Emergency department patient visit NAIMA KUMAR Facility:[facility] Start: 10-03-2024 End: 10-03-2024 ambulatory Naima Kumar Facility:[facility] Start: 09-04-2024 End: 09-04-2024 ambulatory NAIMA KUMAR [facility] Start: 06-05-2024 End: 06-05-2024 ambulatory NAIMA KUMAR [facility] Start: 03-17-2024 End: 03-17-2024 ambulatory NAIMA KUMAR [facility] Start: 12-24-2023 ambulatory NAIMA KUMAR [facility] ity:[facility] Start: 12-24-2023 End: 12-24-2023 Subsequent hospital visit by physician [facility] Comment on above: Left foot XR Start: 12-21-2023 End: 12-21-2023 ambulatory [facility] Work Phone: Start: 12-21-2023 End: 12-21-2023 Patient encounter procedure [facility]-Laboratory, Specimen Work Phone: Start: 12-21-2023 End: 12-21-2023 ambulatory Naima Kumar Facility:[facility] Start: 12-22-2022 End: 12-22-2022 Subsequent hospital visit by physician [facility] Comment on above: Pain in right hip [M 25.551] Start: 12-21-2022 End: 12-21-2022 ambulatory [facility] Work Phone: Start: 12-21-2022 End: 12-21-2022 Patient encounter procedure [facility]-Laboratory, Specimen Start: 12-14-2021 End: 12-14-2021 Patient encounter procedure [facility]-Laboratory, Specimen Start: 09-28-2021 End: 09-28-2021 Emergency department patient visit [facility]-Emergency Department Start: 08-16-2021 End: 08-16-2021 Subsequent hospital visit by physician Chuck Haskins MD Work Phone: [facility] Production Maintenance Technician Comment on above: Arrived Procedures Date Procedure Procedure Detail Performing Clinician Start: 12-12-2024 Anaerobic microbial culture Naima Kumar RUBBER PRODUCTION MACHINE OPERATOR-C Work Phone: Start: 12-12-2024 Gram stain microscopy D denis Kumar RUBBER PRODUCTION MACHINE OPERATOR-C Work Phone: Start: 12-12-2024 Microbial culture, routine Naima Kumar RUBBER PRODUCTION MACHINE OPERATOR-C Work Phone: Start: 10-03-2024 Urine culture Naima lopez RUBBER PRODUCTION MACHINE OPERATOR-C Work Phone: Start: 09-28-2021 SARS-CoV-2 Antigen (Rapid) Start: 08-16-2021 Ecg routine ecg w/le ast 12 lds w/i&r Shantelle Flores DONOR RELATIONS OFFICER - [employer] Work Phone: Start: 08-16-2021 EP NURSE PROCEDURE REPORT 3m Scanning Start: 08-16-2021 Cardiac catheterization Shantelle Flores DONOR RELATIONS OFFICER - [employer] Work Phone: Start: 10-03-2019 Lipid 1996 panel - S morteza or [facility] Start: 04-09-2018 M[facility]ography [facility] Start: 12-29-2009 Microscopic observat ion [Identifier] in Cervix by Cyto stain Chuck Haskins MD Work Phone: Plan of Treatment Date Care Activity Detail Author Start: 12-09-2024 [facility] Start: 10-03-2024 Lipid panel Lipid Screening [facility] Start: 07-22-2024 Diabetes Screening Diabetes Screening [facility] Start: 05-25-2024 Influenza vaccination Influenza Vaccine (Season Ended) [facility] Start: 09-24-2023 Depression Assessment Depression Assessment [facility] Start: 05-25-2023 Covid-19 Vaccine ( season) Covid-19 Vaccine ( season) [facility] Start: 09-24-2022 DEPRESSION ASSESSMENT DEPRESSION ASSESSMENT [facility] Start: 08-07-2022 LIPID SCREEN LIPID SCREEN [facility] Start: 07-22-2022 Creatinine measurement Creatinine monitoring [facility] Start: 07-22-2022 Potassium monitoring Potassium monitoring [facility] Start: 05-25-2022 Influenza vaccination INFLUENZA (#1) [facility] Start: 2022 RSV Vaccine (1 - 1-dose 60+ series) RSV Vaccine (1 - 1-dose 60+ series) [facility] Start: 08-30-2021 End: 08-30-2021 Nursing evaluation of patient and report 08/30/2021 Nurse Only Cardiology Madelaine Sam, [facility] Start: 05-25-2021 Influenza vaccination Flu vaccine (#1) [facility] Start: 03-25-2021 DIABETES SCREEN DIABETES SCREEN [facility] Start: 10-03-2020 Lipid panel Lipid screen [facility] Start: 07-22-2019 Diabetic foot examination Diabetic foot exam [facility] Start: 04-09-2019 Mammography MAMMOGRAM [facility] Start: 04-09-2019 Screening for malignant neoplasm of breast [facility] Start: 03-25-2019 Diabetic microalbuminuria test Diabetic microalbuminuria test [facility] Start: 03-25-2019 Hemoglobin A1c measurement A1C test (Diabetic or Prediabetic) [facility] Start: 07-30-2018 Diabetic retinal exam Diabetic retinal exam [facility] Start: 12-29-2012 Screening for malignant neoplasm of cervix [facility] Start: 2012 Screening for malignant neoplasm of lung Low dose CT lung screening [facility] Start: 2012 Shingles Vaccine (1 of 2) Shingles Vaccine (1 of 2) [facility] Start: 2012 SHINGRIX VACCINE (1 of 2) SHINGRIX VACCINE (1 of 2) [facility] Start: 2007 COLOGUARD (FIT-DNA) COLOGUARD (FIT-DNA) [facility] Start: 2007 Colonoscopy COLONOSCOPY [facility] Start: 2007 COLORECTAL CANCER SCREENING COLORECTAL CANCER SCREENING [facility] Start: [address] COLONOGRAPHY [facility] Start: 2007 FECAL OCCULT BLOOD FECAL OCCULT BLOOD [facility] Start: 2007 Screening for malignant neoplasm of colon [facility] Start: 2007 SIGMOIDOSCOPY SIGMOIDOSCOPY [facility] Start: 1992 HPV TESTING HPV TESTING [facility] Start: 1992 Screening for malignant neoplasm of cervix [facility] Start: 1983 PAP TESTING PAP TESTING [facility] Start: 1983 Screening for malignant neoplasm of cervix Pap Testing [facility] Start: 1981 DTaP/Tdap/Td vaccine (1 - Tdap) DTaP/Tdap/Td vaccine (1 - Tdap) [facility] Start: 1981 Hepatitis B vaccine (1 of 3 - Risk 3-dose series) Hepatitis B vaccine (1 of 3 - Risk 3-dose series) [facility] Start: 1981 Urine microalbumin profile [facility] Start: 1980 HEPATITIS C SCREENING HEPATITIS C SCREENING [facility] Start: 1980 Hepatitis C screening Hepatitis C Screening [facility] Start: 1980 HIV SCREENING HIV SCREENING [facility] Start: 1980 HIV screening HIV Screening [facility] Start: 1977 HIV screening HIV screen [facility] Start: 1974 COVID-19 Vaccine (1) COVID-19 Vaccine (1) [facility] Start: 1968 Pneumococcal 0-64 years Vaccine (1 of 2 - PPSV23) Pneumococcal 0-64 years Vaccine (1 of 2 - PPSV23) [facility] Start: 1962 COVID-19 VACCINE (#1) COVID-19 VACCINE (#1) [facility] Start: 1962 Hepatitis C screening Hepatitis C screen [facility] EKG 12 Lead EKG 12 Lead ECG Routine 08/16/2021 8:55 AM EST [facility] Work Phone: End: 08-16-2021 ELECTROPHYSIOLOGY DEVICE ELECTROPHYSIOLOGY DEVICE Echocardiography Routine One Time for 1 Occurrences starting 08/16/2021 until 08/16/2021 [facility] Work Phone: Comment on above: One Time for 1 Occurrences starting 07/26 until 08/16/2021 Oxygen therapy [[facility] Data Set] Initiate Oxygen Therapy Protocol Respiratory Care Routine Daily until discontinued starting 08/16/2021 [facility] Work Phone: Comment on above: Daily until discontinued starting 2020 Patient Education [facility] Work Phone: Patient referral [facility] Work Phone: Immunizations Immunization Date Immunization Notes Care Provider Fa cili 08-07-2013 influenza virus vaccine, unspecified formulation Chuck Haskins MD Work Phone: [facility] Work Phone: Payers Date Payer Category Payer Self-pay [id number] 2022 Unknown MMO MMO [employer] PPO [id number] 2022-Present [phone] [address] [place] [address] PPO [id number] 2020 Unknown [id number] Unknown [id number] Unknown [id number] Unknown [id number] Unknown [id number] Social History Date Type Detail Facility Start: 06-16-2015 Tobacco smoking stat [facility] Ex-smoker [facility] Work Phone: End: 09-24-2010 History of tobacco use Current smoker [facility] Work Phone: End: 09-24-2010 History of tobacco use Cigarette Smoker [facility] Work Phone: Start: 06-16-2015 End: 08-29-2020 Cigarettes smoked current (pack per day) - Reported 1.5 [facility] Work Phone: Start: 06-16-2015 End: 09-28-2021 Tobacco use and exposure Smokeless tobacco non-user [facility] Work Phone: Start: 07-22-2021 Alcohol intake Current non-dr chief creative officer of alcohol (finding) [facility] Work Phone: Start: 1960 Sex Assigned At Not on file [facility] Work Phone: Exposure to SARS-CoV -2 (event) Not sure [facility] Start: 09-28-2021 Tobacco smoking stat us NHIS Unknown if ever smoked [facility] Start: 03-20-2020 Spouse/ Signif icant Other [facility] Start: 1960 Sex Assigned At Female [facility] Start: 09-28-2021 End: 12-11-2024 Tobacco smoking status NHIS Never smoked tobacco [facility] Start: 08-29-2020 End: 09-28-2021 Tobacco use panel [facility] National Score (1-10 0), lower number is lower risk Not on file [facility] Start: 12-09-2024 End: 12-16-2024 Sex Female (finding) [facility] Medical Equipment Procedure Code Equipment Code Equipment Origin al Text Equipment Identifier Dates 1 each by In Vit ro route 2 times daily As needed. [id number] Start: 07-22-2018 Blood Sugar Diagnostic (Onetouch Ultra Test) strip Start: 12-21-2023 Lancets (E-Z Jec t Lancets) [facility] Start: 12-21-2023 Blood Sugar Diagnostic (Onetouch Ultra Test) strip Start: 12-21-2023 Lancets (E-Z Jec t Lancets) [facility] Start: 12-21-2023 Blood Sugar Diagnostic (Onetouch Ultra Test) strip Start: 12-21-2023 Lancets (E-Z Jec t Lancets) [facility] Start: 12-21-2023 Goals Date Patient Goal Desired Activity /State Comment on above: Formatting of this n ote might be different from the original. Patient goal is to get A1C down Self- Management Goals: Below is a list of objectives your doctor would like you to consider working on help improve your overall health. Which objectives would you like to work on: Objective: overall health Barriers to success: none Plan for overcoming my barriers: n/a Confidence: moderate in terms of implementation Date goal set: today Patient given educational materials below via AVS. Patient received counseling about current lifestyle goal. Patient was informed that they should never smoke. If they are smoker, the need to work on quitting. Advised Alcohol only in moderation. Advised approximately 150 minutes of cardio, i.e treadmill, exercise in a week. Advised strive for 5 a total 5 servings of fruits and vegetables in a day. Advised a diet lower in carbohydrates and simple sugars. They need to watch consumption of bread, rice, pasta, potatoes, corn, soda, sweetened tea, lemonade, and all other sugar drinks. Patient given after visit summary which includes this educational information Discussed use, benefit, and side effects of prescribed medications and barriers to medication compliance addressed, if applicable. All patient questions answered. Patient was given a copy of this, and was advised to call if any questions. Comment on above: Formatting of this n ote might be different from the original. Self- Management Goals: Below is a list of objectives your doctor would like you to consider working on help improve your overall health. Which objectives would you like to work on: Objective: overall health Barriers to success: none Plan for overcoming my barriers: n/a Confidence: moderate in terms of implementation Date goal set: today Patient given educational materials below via AVS. Patient received counseling about current lifestyle goal. Patient was informed that they should never smoke. If they are smoker, the need to work on quitting. Advised Alcohol only in moderation. Advised approximately 150 minutes of cardio, i.e treadmill, exercise in a week. Advised strive for 5 a total 5 servings of fruits and vegetables in a day. Advised a diet lower in carbohydrates and simple sugars. They need to watch consumption of bread, rice, pasta, potatoes, corn, soda, sweetened tea, lemonade, and all other sugar drinks. Patient given after visit summary which includes this educational information Discussed use, benefit, and side effects of prescribed medications and barriers to medication compliance addressed, if applicable. All patient questions answered. Patient was given a copy of this, and was advised to call if any questions. Clinical Notes 09-28-2021 to 10-03-2024 Note Date & Type Note Facility 10-03-2024 Evaluation note Diagnosis Onset Date Resolution Cystitis acute October 03, 2024 4:39pm Hyperglycemia acute September 4:39pm Hypovolemia acute October 03, 2024 4:39pm Orthostasis acute October 03, 2024 4:39pm Diabetes type 2, uncontrolled chronic October 03 4:39pm Boil of trunk acute December 09, 2024 4:48pm Hyperglycemia acute December 09, 2024 4:48pm Yeast infection involving the vagina and surrounding area acute December 09 4:48pm Diabetes type 2, uncontrolled chronic December 09, 2024 4:48pm [facility] Work Phone: 1(155) 426-982201-10-2025 Evaluation note* Diagnosis Onset Date Resolution Status Admit Date Cystitis acute October 03, 2024 4:39pm Hyperglycemia acute September 4:39pm Hypovolemia acute October 03, 2024 4:39pm Orthostasis acute October 03, 2024 4:39pm Diabetes type 2, uncontrolled chroni c October 03, 2024 4:39pm Boil of trunk acute December 09, 2024 4:48pm Hyperglycemia acute December 09, 2024 4:48pm Yeast infection involving th e vagina and surrounding area acute 2024 4:48pm Diabetes type 2, uncontrolled chroni c December 09, 2024 4:48pm Abscess acute December 12 2:57pm [facility] Work Phone: 1(648) 138-701304-01-2024 History of Present illness Narrative* Zainab Albrecht RT(R) - 12/24/2023 11:00 AM EDT Radiology Service Progress Note PATIENT NAME: Ernestina Huston DATE OF SERVICE: December 24, 2023 TIME: 11:08 AM PATIENT IDENTITY VERIFICATION COMPLETED USING TWO (2) IDENTIFIERS: Name and Date of confirmedby patient verbally. FALL SCREENING: Has the patient had 2 falls in the last year or 1 fall with injury or currently using an Ambulatory Assistive Device (Walker, Cane, Wheelchair, Crutches, etc.)? No PATIENT GENDER DATA: Female. status: : No status: NO. PATIENT RELEVANT IMPLANT DATA REVIEWED: Not Applicable PATIENT PRESENTS WITH AN IMPLANTABLE OR ATTACHED PRESCHOOL LEAD TEACHER: No RADIOLOGY DEPARTMENT: General X-ray: Exam(s) Completed: Lower Extremity X- Ray(s): Foot, Left PERIPHERAL IV DATA: Not applicable SIGNED BY: Zainab Albrecht RT(R) December 24, 2023 11:08 AM documented [facility]24 NoteHNO ID: [id number] Author: ZAINAB ALBRECHT RT(R) Service: ? Author Type: Technologist Type: Progress Notes Filed: 12/24/2023 11:08 Note Text: Radiology Service Progress Note PATIENT NAME: Ernestina Huston DATE OF SERVICE: December 24, 2023 TIME: 11:08 AM PATIENT IDENTITY VERIFICATION COMPLETED USING TWO (2) IDENTIFIERS: Name and Date of confirmed by patient verbally. FALL SCREENING: Has the patient had 2 falls in the last year or 1 fall with injury or currently using an Ambulatory Assistive Device (Walker, Cane, Wheelchair, Crutches, etc.)? No PATIENT GENDER DATA: Female. status: : No status: NO. PATIENT RELEVANT IMPLANT DATA REVIEWED: Not Applicable PATIENT PRESENTS WITH AN IMPLANTABLE OR ATTACHED PRESCHOOL LEAD TEACHER: No RADIOLOGY DEPARTMENT: General X-ray: Exam(s) Completed: Lower Extremity X-Ray(s): Foot, Left PERIPHERAL IV DATA: Not applicable SIGNED BY: RT Farhana(R) December 24, 2023 11:08 [facility]01-05-2022 NoteHNO ID: [id number] Author: Narinder Parsons PA-C Service: ? Author Type: Physician Flight Simulator Teacher Type: Progress Notes Filed: 09/28/2021 7:15 PM Note Text: Subjective HPI HPI Ernestina Huston is a 61 year old female who presents today for CC of progressive cough x 3 days. Had fevers at the beginning, with Tmax 104. Suspects covid as her was just positive 1 week ago. PMH significant for CHF and has defibrillator/pacemaker. Denies any SOB, chest pain, or heart palpitations. Says she typically sats at 100% and pulse is typically about 88. BP 110/72 Pulse 109 Temp 37.5 ?C (99.5 ?F) Resp 22 Wt 96.2 kg (212 lb) SpO2 92% ALLERGIES No Known Allergies There is no problem list on file for this patient. No family history on file. Social History Tobacco Use - Smoking status: Never Smoker - Smokeless tobacco: Never Used Substance Use Topics - Alcohol use: Not on file - Drug use: Not on file ROS Objective Physical Exam ASSESSMENT/PLAN: 1. Abnormal pulse oximetry - ICD9: 790.91, ICD10: R79.81 (primary diagnosis) Given pt's PMH, as well as current vitals, I am concerned about her respiratory status and suspect probable COVID pneumonia. Discussed concerns with patient and explained that she requires a higher level of care than we can currently provide, and may possibly require admission. 2. Tachycardia - ICD9: 785.0, ICD10: R00.0 See above The patient indicates understanding of these issues and agrees with the plan; her will drive her over to [facility] at this time. Report sent over via ER passport. [facility] Chronic HFrEF (heart failure with reduced ejection fraction) ([facility]) documented in this encounter [facility] Work Phone: Evaluation note* Diagnosis Onset Date Resolution Status Atrial fibrillation and flutter acute Congestive heart failure chr onic Diabetes type 2, uncontrolled chronic GERD (gastroesophageal reflux disease) chronic Hypertension [facility] Work Phone: Evaluation note* Diagnosis Onset Date Resolution Status Atrial fibrillation and flutter acute Diabetes type 2, uncontrolled chronic Hypertension [facility] Work Phone: Evaluation note* Diagnosis Onset Date Resolution Status Bone cyst of left foot acute Eructation acute Diabetes type 2, uncontrolled [facility] Work Phone: Hospital Discharge instructions* Instructions* Shantelle Flores APRN - FINAL TESTER - 08/16/2021 Internal Cardioverter Defibrillator May Bath On: 08/18/21 May Remove Bandage On: 08/21/21 Come to the Emergency Room for bleeding that does not stop, increased swelling, or if your arm becomes cold. Call your doctor if you experience redness, swelling or drainage at incision site. Call your doctor if you experience fever or chills. Call your doctor if the incision site becomes increasingly painful to touch. Call your doctor if you experience chest pain, shortness of breath, dizziness, fainting spells, swelling in the ankles, or prolonged hiccoughing. You may take a sponge bath for the next 48 hours then ok to shower. No swimming or tub bathing for 6 weeks. Keep original bandage on until directed. Do NOT remove steri-strips (tape) from incision line if present. Once bandage is removed leave incision open to air. Do not apply lotions, ointments or creamsto incision site. Carry your ID card with you at all times. No driving until your doctor has given you permission to drive. You may resume sexual activity in 3 weeks Keep affected arm below shoulder level for 4 weeks. Do not raise affected arm over your head. Refer to your information booklet for additional information It is recommended that all family members be certified in CPR. Call the [facility] at [phone] if you have any questions regarding your incision, defibrillator, or follow-up appointments. Call the Device Clinic at [phone] if you have signs of a rapid heart rhythm, if you hear a beeping tone or vibration from your defibrillator. Call the Device Clinic at [phone] or your physician if you experience a shock. Be calm and liedown if you are alone. If you feel as though you are going to pass out call [phone]. No lifting, pulling, pushing more than 5 pounds with your affected arm for 4 weeks (a gallon of milk weighs 8 pounds) Keep affected arm below shoulder level for 4 weeks. Do not raise affected arm over your head. Avoid strong magnetic hess such as power plants, arc welding, and large magnets. If someone is touching you when a shock is delivered, they will not be harmed but may experience a sensation similar to a bee sting. Procedure Sedation Instructions 1. If you have received sedation: you must have someone drive you home 2. You should not drive a car, operate machinery, drink alcohol or perform any activity that requires alertness for the rest of the day. The effects of the sedative should be gone by tomorrow. documented in this [facility] Work Phone[facility] Hospital Discharge instructions Additional Instructions Call Dr. Castillo's office tomorrow to make a follow-up appointment. If you cannot be seen before the weekend, pull the packing out on Sunday. Follow-up with your PCP if you are unable to follow-up with Dr. Castillo this week. Return for any worsening symptoms. Try to keep your sugar under control through a diabetic diet. Take antibiotic as directed.[facility] Work Phone: Reason for referral (narrative)No reason for referral information availableWMercy Health [facility] Work Phone: Summary Purpose Family History No Family History Records Found Relationship Condition Age at Onset Recorded Date/T lenora Not Specified Coronary artery disease Unknown sister Malignant neoplasm of breast Unknown Diabetes mellitus Unknown Disorder of thyroid Unknown mother Cerebrovascular accident (CVA) Unknown Cardiac disease Unknown Myocardial infarction Unknown father Cardiac disease Unknown Advance Directives No Advanced Directives Records FoundDocuments on File Type Date Recorded Patient Client Integration Manager Expl anation ACP-Advance Directive ACP-Power of Shore Working Supervisor Latest Code Status on File Code Status Date Activated Date Inactivated Comments Full Code 08/16/2021 6:38 AM Advance Directive Response Recorded Date/ Time Living Will No September 28 9:54pm Power of Shore Working Supervisor No September 28 9:54pm Advance Directive Response Recorded Date/ Time Living Will No December 09, 2024 6:41pm Power of Shore Working Supervisor No December 09 6:41pm Advance Directive Response Recorded Date/ Time Living Will No December 09, 2024 6:41pm Do you have a Healthcare Power of Shore Working Supervisor? No December 09, 2024 6:41pm Chief Complaint and Reason for Visit Chief Complaint COUGH, FATIGUE, HEAD ACHE medication refills Reason for Visit Atrial fibrillation and flutter Congestive heart failure Diabetes type 2, uncontrolled GERD (gastroesophageal reflux disease) Hypertension Chief Complaint medication refills Reason for Visit Atrial fibrillation and flutter Diabetes type 2, uncontrolled Hypertension Chief Complaint Diabetes Mellitus Ty pe 2 A1c/meds Reason for Visit Bone cyst of left fo ot Eructation Diabetes type 2, uncontrolled Chief Complaint Admit Date Chills/shaky October 03, 2024 4 :39pm Infected Boil December 09, 2024 4:4 8pm WOUND December 09, 2024 6:2 7pm Reason for Visit Admit Date Cystitis October 03, 2024 4 :39pm Hyperglycemia October 03, 2024 4 :39pm Hypovolemia October 03, 2024 4 :39pm Orthostasis October 03, 2024 4 :39pm Diabetes type 2, uncontrolled October 032024 4:39pm Boil of trunk December 09, 2024 4:4 8pm Hyperglycemia December 09, 2024 4:4 8pm Yeast infection involving the vagina and surrounding area December 09, 2024 4:48pm Diabetes type 2, uncontrolled November 4:48pm Chief Complaint Admit Date Chills/shaky October 03, 2024 4 :39pm Infected Boil December 09, 2024 4:4 8pm WOUND December 09, 2024 6:2 7pm Diabetes Mellitus Type 2 A1c meds December 12, 2024 2:57pm LABWORK December 12, 2024 10: 06pm Reason for Visit Admit Date Cystitis October 03, 2024 4 :39pm Hyperglycemia October 03, 2024 4 :39pm Hypovolemia October 03, 2024 4 :39pm Orthostasis October 03, 2024 4 :39pm Diabetes type 2, uncontrolled October 032024 4:39pm Boil of trunk December 09, 2024 4:4 8pm Hyperglycemia December 09, 2024 4:4 8pm Yeast infection involving the vagina and surrounding area December 09, 2024 4:48pm Diabetes type 2, uncontrolled November 4:48pm Abscess December 12, 2024 2:5 7pm Additional Source Comments INFORMATION SOURCE (unrecogn ized section and content) DATE CREATED AUTHOR 05/05/2020 [facility] DATE CREATED AUTHOR AUTHOR'S ORGANIZ ATION 08/18/2021 [facility] DATE CREATED AUTHOR AUTHOR'S ORGANIZ ATION 12/14/2021 [facility] DATE CREATED AUTHOR AUTHOR'S ORGANIZ ATION 10/08/2024 [facility] DATE CREATED AUTHOR AUTHOR'S ORGANIZ ATION 12/16/2024 [facility] DATE CREATED AUTHOR AUTHOR'S ORGANIZ ATION 03/16/[address] [facility] Scheduled Active and Recently Administ ered Medications (unrecognized section and content) Medication Order 08/14/2021 08/15/2021 08/16/2021 sodium chloride flush 0.9 % injection 5-40 mL 5-40 mL, IntraVENous, EVERY 12 HOURS SCHEDULED (2 times per day), First dose on Sun08/16/21 at 0900, For Line Patency: Peripheral IV = 5 mL; Midline or Central Line = 10 mL/lumen. If following IV push medication, administer flush at same rate as the IV push. Flush volume is determined by type of infusion therapy being given. For non-viscous solutions use: Peripheral IV = 5 mL Midline or Central Line = 10 mL/lumen For viscous solutions (i.e. blood components, parenteral nutrition, contrast media, or after obtaining blood sample) use: Peripheral IV = 10 mL Midline or Central Line = 20 mL/lumen, Pre-Procedure(Cath) 0900 (Due)2100 (Due) vancomycin 1000 MG IVPB in 250 mL NS add-vantage (COMPLETED) 1,000 mg, IntraVENous, at 250 mL/hr, Administer over 60 Minutes, ONCE, On Sun08/16/21 at 0700, For 1 dose, Braid Cutter to EP Lab, Pre-Procedure(Cath) 0745 (Given by Other Clinician - Provider: Mattie Coronel RN - Comment: given in EP lab prior to procedure by CLINICAL APPLICATIONS MANAGER) Continuous Medication Order 08/14/2021 08/15/2021 08/16/2021 0.9 % sodium chloride infusion IntraVENous, at 30 mL/hr, CONTINUOUS, Starting on Sun08/16/21 at 0700, Pre-Procedure(Cath) 0700 (Due) PRN Medication Order 08/14/2021 08/15/2021 08/16/2021 sodium chloride flush 0.9 % injection 5-40 mL 5-40 mL, IntraVENous, PRN, Line Care, After every IV line use, Starting on Sun08/16/21 at 0638, For Line Patency: Peripheral IV = 5 mL; Midline or Central Line = 10 mL/lumen. If following IV push medication, administer flush at same rate as the IV push. Flush volume is determined by type of infusion therapy being given. For non-viscous solutions use: Peripheral IV = 5 mL Midline or Central Line = 10 mL/lumen For viscous solutions (i.e. blood components, parenteral nutrition, contrast media, or after obtaining blood sample) use: Peripheral IV = 10 mL Midline or Central Line = 20 mL/lumen, Pre-Procedure(Cath) Care Teams (unrecognized sec tion and content) Cook Syrup Maker Relationship Specialty Start Date End Date Naima Kumar [address] [place] [address] PCP - General Nurse Practitioner 10/03/19 Cook Syrup Maker Relationship Specialty Start Date End Date Naima Kumar APRN.FINAL TESTER [address] [facility] [address] [place] [id number] PCP - General Family Medicine 05/04/20 Team Status: Active Member Role Status Dates Naima Kumar RUBBER PRODUCTION MACHINE OPERATOR, RUBBER PRODUCTION MACHINE OPERATOR-C Primary Care Provider Active Team Status: Inactive Member Role Status Dates Naima Kumar RUBBER PRODUCTION MACHINE OPERATOR, RUBBER PRODUCTION MACHINE OPERATOR-C Primary Care Pr ovider, Attending Provider, Referring Provider Active Team Status: Inactive Member Role Status Dates Naima Kumar NP, RUBBER PRODUCTION MACHINE OPERATOR-C Primary Care Provider, Attend ing Provider Active Cook Syrup Maker Relationship Specialty Start Date End Date Naima Kumar APRN.FINAL TESTER [address] [id number] PCP - General Family Medicine 05/04/20 Team Status: Inactive Member Role Status Dates Naima Kumar RUBBER PRODUCTION MACHINE OPERATOR, RUBBER PRODUCTION MACHINE OPERATOR-C Primary Care Provider Active Start: October 03, 2024 End: October 03, 2024 Naima Kumar RUBBER PRODUCTION MACHINE OPERATOR, RUBBER PRODUCTION MACHINE OPERATOR-C Attending Provider Active Start: October 03, 2024 End: October 03, 2024 Naima Kumar RUBBER PRODUCTION MACHINE OPERATOR, RUBBER PRODUCTION MACHINE OPERATOR-C Referring Provider Active Start: October 03, 2024 End: October 03, 2024 Team Status: Active Member Role Status Dates Naima Kumar RUBBER PRODUCTION MACHINE OPERATOR, RUBBER PRODUCTION MACHINE OPERATOR-C Primary Care Provider Active Start: December 09, 2024 Naima Kumar RUBBER PRODUCTION MACHINE OPERATOR, RUBBER PRODUCTION MACHINE OPERATOR-C Attending Provider Active Start: December 09, 2024 Naima Kumar RUBBER PRODUCTION MACHINE OPERATOR, RUBBER PRODUCTION MACHINE OPERATOR-C Referring Provider Active Start: December 09, 2024 Team Status: Inactive Member Role Status Dates Naima Kumar RUBBER PRODUCTION MACHINE OPERATOR, RUBBER PRODUCTION MACHINE OPERATOR-C Primary Care Provider Active Start: December 09, 2024 End: December 09, 2024 Dr. Nik Bundy MD Emergency Provider Active Start: December 09, 2024 End: December 09, 2024 Team Status: Inactive Member Role Status Dates Naima Kumar RUBBER PRODUCTION MACHINE OPERATOR, RUBBER PRODUCTION MACHINE OPERATOR-C Primary Care Provider Active Start: December 09, 2024 End: December 09, 2024 Naima Kumar RUBBER PRODUCTION MACHINE OPERATOR, RUBBER PRODUCTION MACHINE OPERATOR-C Attending Provider Active Start: December 09, 2024 End: December 09, 2024 ESTEBAN Castellanos NP Referring Provider Active Start: December 09, 2024 End: December 09, 2024 Team Status: Inactive Member Role Status Dates ESTEBAN Castellanos NP Primary Care Provider Active Start: December 12, 2024 End: December 12, 2024 ESTEBAN Castellanos NP Attending Provider Active Start: December 12, 2024 End: December 12, 2024 ESTEBAN Castellanos NP Referring Provider Active Start: December 12, 2024 End: December 12, 2024 Goals (unrecognized section and content) Goals may be documented in a n alternate sectionGoals may be documented in an alternate sectionGoals may be documented in an alternate sectionGoals may be documented in an alternate sectionGoals may be documented in an alternate section Source Comments (unrecognize d section and content) In the event this informatio n is protected by the Federal Confidentiality of Alcohol and Drug Abuse Patient Records regulations: The Federal rules restrict any use of the information to criminally investigate or prosecute any alcohol or drug abuse patient.[facility] Hospital[facility] the event this information is protected by the Federal Confidentiality of Alcohol and Drug Abuse Patient Records regulations: The Federal rules restrict any use of the information to criminally investigate or prosecute any alcohol or drug abuse patient.[facility] FOR RECORDS PERTAINING TO PATIENTS WHO ARE OR HAVE BEEN ENROLLED IN A CHEMICAL DEPENDENCY/SUBSTANCEABUSE PROGRAM, SOME INFORMATION MAY BE OMITTED. This clinical summary was aggregated from multiple sources. Caution should be exercised in using it in the provision of clinical care. This summary normalizes information from multiple sources, and as a consequence, information in this document may materially change the coding, format and clinical context of patient data. In addition, data may be omitted in some cases. CLINICAL DECISIONS SHOULD BE BASED ON THE PRIMARY CLINICAL RECORDS. [facility] [employer] [facility]. provides no warranty or guarantee of the accuracy or completeness of information in this document.
[2025-03-20 21:47] LABS: Basophil# 0.07 X10^3/uL; Eosinophil# 0.09 X10^3/uL; Eosinophils% 1.2 % (0-5); Hematocrit 45.3 % (37-47); Mean Corp Hgb Conc 33.1 g/dL (32-36); Mean Corpuscular Hgb 30.4 pg (27.0-32.0); Mean Corpuscular Volume 91.7 fL (81-99); Mean Platelet Vol. 13.6 fl (6.2-12.0); Monocyte# 0.84 X10^3/uL; Monocyte% 11.4 % (0-10); NRBC Flagged by Analyzer 0 % (0-5); Neutrophil # 3.03 X10^3/uL (2.7-7.7); Neutrophil % 41.3 % (47-70); Platelet Count 193 K/mm3 (150-450); RBC Distribution Width CV 13.6 % (11.6-14.6); RBC Distribution Width SD 46.1 fl (35.1-43.9); Red Blood Count 4.94 M/mm3 (4.2-5.4); White Blood Count 7.3 K/mm3 (4.4-11.0)
[2025-03-20 22:03] LABS: ALB/GLOB Ratio 1.4 RATIO (0.9-2.4); AST(SGOT) 17 U/L (<=31); Alanine Aminotransfer ALT/SGPT 21 U/L (<=34); Albumin, Serum 4.3 g/dL (3.4-4.8); Alkaline Phosphatase 131 U/L (35-104); Anion Gap 12 (5-15); BUN 13 mg/dL (4-19); BUN/Creat Ratio 22.7 RATIO (10-20); Calcium,Total 9.5 mg/dL (7.6-11.0); Carbon Dioxide 23.3 mmol/L (21.0-32.0); Chloride 100 mmol/L (98-108); Cholesterol 268 mg/dL (<=200); Creatinine, Serum 0.58 mg/dL (0.70-1.20); EST Glomerular Filtration Rate 102 (>60); Glucose 250 mg/dL (70-99); High Density Lipoprotein 32 mg/dL; Low Density Lipoprotein Calc. 160 mg/dL; Potassium 4.5 mmol/L (3.3-5.1); Protein, Total 7.2 g/dL (5.9-8.4); Sodium Level 136 mmol/L (133-145); Total Bilirubin 0.38 mg/dL (0.00-1.30); Triglycerides 380 mg/dL; Very Low Density Lipoprotein 76 mg/dL (5-40)
[2025-03-20 22:05] LABS: Digoxin Level 0.76 ng/mL (0.00-2.00)
== END | disposition home or self-care (01) ==
PROVIDERS: PCP Nurse Practitioner; Referring Provider Nurse Practitioner; Visit Provider Nurse Practitioner
DX: I10 Essential (primary) hypertension (principal); I48.91 Unspecified atrial fibrillation; I48.92 Unspecified atrial flutter; E11.65 Type 2 diabetes mellitus with hyperglycemia
CPT/HCPCS: 80053; 80061; 80162; 85025

== ENCOUNTER → 2025-03-31 | Outpatient (CLI) | payer OTHER, SELFPAY ==
[2025-03-31 21:52] LABS: Hematocrit 43.3 % (37-47); Hemoglobin 14.2 g/dL (12.0-15.0); Immature Granulocytes Count 0.030 X10^3/uL (0.0-0.0); Mean Corp Hgb Conc 32.8 g/dL (32-36); Mean Corpuscular Volume 92.7 fL (81-99); Mean Platelet Vol. 13.9 fl (6.2-12.0); NRBC Flagged by Analyzer 0 % (0-5); Platelet Count 204 K/mm3 (150-450); RBC Distribution Width CV 14.1 % (11.6-14.6); RBC Distribution Width SD 47.2 fl (35.1-43.9); Red Blood Count 4.67 M/mm3 (4.2-5.4); White Blood Count 7.1 K/mm3 (4.4-11.0)
[2025-03-31 23:46] LABS: AST(SGOT) 28 U/L (<=31); Alanine Aminotransfer ALT/SGPT 53 U/L (<=34); Albumin, Serum 4.0 g/dL (3.4-4.8); Alkaline Phosphatase 130 U/L (35-104); Anion Gap 15 (5-15); BUN 7 mg/dL (4-19); BUN/Creat Ratio 14.8 RATIO (10-20); Calcium,Total 9.3 mg/dL (7.6-11.0); Carbon Dioxide 19.0 mmol/L (21.0-32.0); Chloride 103 mmol/L (98-108); Globulin 2.9 g/dL (2.2-4.2); Glucose 242 mg/dL (70-99); Potassium 4.1 mmol/L (3.3-5.1)
[2025-04-01 19:20] LABS: Troponin T High Sensitivity 153 ng/L (<=14)
[2025-04-04 05:07] LABS: CRP, High Sensitivity 9.59 mg/L (0.00-3.00)
== END | disposition home or self-care (01) ==
PROVIDERS: PCP Nurse Practitioner; Referring Provider Nurse Practitioner; Visit Provider Nurse Practitioner
DX: R00.2 Palpitations (principal); R73.9 Hyperglycemia, unspecified
CPT/HCPCS: 80053; 83036; 84443; 84484; 85025; 86141

== ENCOUNTER 2025-04-01 20:08 | Inpatient (IN) | payer OTHER, SELFPAY ==
[2025-04-01] VITALS (11 sets, daily range): BP systolic 107–147; BP diastolic 60–136; PULSE 70–127; RESP 23–33; TEMP 36.6; O2SAT 89–98; BMI 35.4
--- NOTE | 2025-04-01 20:18 | EKG12_ITS ---
Test Reason : REPEAT Blood Pressure : */* mmHG Vent. Rate : 96 BPM Atrial Rate : 96 BPM P-R Int : 108 ms QRS Dur : 134 ms QT Int : 416 ms P-R-T Axes : 69 -80 126 degrees QTcB Int : 525 ms Atrial-sensed ventricular-paced rhythm Abnormal ECG Confirmed by CJ MACDONALD, IMANI ([id number]), film editor CORTES DEAN ([id number]) on 04/02/2025 2:14:31 PM Referred By: Confirmed By: IMANI CORONA MD
--- NOTE | 2025-04-01 20:18 | EKG12_ITS ---
Test Reason : REPEAT Blood Pressure : */* mmHG Vent. Rate : 96 BPM Atrial Rate : 96 BPM P-R Int : 108 ms QRS Dur : 134 ms QT Int : 416 ms P-R-T Axes : 69 -80 126 degrees QTcB Int : 525 ms Atrial-sensed ventricular-paced rhythm Abnormal ECG Confirmed by CJ MACDONALD, IMANI ([id number]), deputy editor in chief CORTES DEAN ([id number]) on 04/02/2025 2:14:31 PM Referred By: Confirmed By: IMANI CORONA MD
--- NOTE | 2025-04-01 20:21 | RAD_ITS ---
PROCEDURE: CHEST 1 VIEW (PORTABLE) 04/01/2025 REASON FOR EXAM: CHEST PAIN TECHNIQUE: Frontal view of the chest. COMPARISON: 03/20/2020 FINDINGS: Devices: Left chest wall multilead ICD appears appropriately positioned. Lungs/Pleura: Diffuse reticular and hazy perihilar airspace opacities compatible with interstitial and alveolar edema. No sizable pleural effusions. No pneumothorax. Heart/Mediastinum: Cardiomegaly. Vascular congestion. Aortic arch calcification. Bones/Soft tissues: Mild degenerative changes of the spine. RAD/Chest 1 View (Portable) IMPRESSION: Cardiomegaly with pulmonary edema. No sizable pleural effusion. Reading Location: [id number]
--- NOTE | 2025-04-01 20:21 | RAD_ITS ---
PROCEDURE: CHEST 1 VIEW (PORTABLE) 04/01/2025 REASON FOR EXAM: CHEST PAIN TECHNIQUE: Frontal view of the chest. COMPARISON: 03/20/2020 FINDINGS: Devices: Left chest wall multilead ICD appears appropriately positioned. Lungs/Pleura: Diffuse reticular and hazy perihilar airspace opacities compatible with interstitial and alveolar edema. No sizable pleural effusions. No pneumothorax. Heart/Mediastinum: Cardiomegaly. Vascular congestion. Aortic arch calcification. Bones/Soft tissues: Mild degenerative changes of the spine. RAD/Chest 1 View (Portable) IMPRESSION: Cardiomegaly with pulmonary edema. No sizable pleural effusion. Reading Location: [id number]
--- NOTE | 2025-04-01 20:21 | ED.VIS.CHEST ---
HPI History of Present Illness Chief Complaint: Chest Pain Informant: patient Narrative Narrative: Patient is a 64-year-old female with history of coronary artery disease (status post stents), congestive heart failure, atrial fibrillation (not on anticoagulation), hypertension and poorly controlled type 2 diabetes mellitus presenting with chest pressure that radiates to her back and shortness of breath. Also reports a cough productive of sputum. Patient states has been having the symptoms for 2 to 3 days. States they are intermittent. She went and saw family practice yesterday for the symptoms and had outpatient labs drawn including a troponin, CBC, CMP, troponin, CRP and A1c as well as TSH. Lab work was remarkable for an elevated troponin T of 153 and patient was contacted today to come to the emergency room because they are worried she was having a heart attack. Patient states she was not having any chest pain and that she was cleaning her house until he told her about her symptoms and then she started having chest pain again. She denies any swelling of her legs. Her A1c was also elevated at 12 and her bicarb was low at 19 with a glucose of 242 but a normal anion gap (15). Patient denies any ripping or tearing sensation. Denies any recent medication changes. Denies any fever or chills but states she feels warm right now. [facility] Medical History ESBL (extended spectrum beta-lactamase) producing bacteria infection Neuropathy Myocardial infarct GERD (gastroesophageal reflux disease) Diabetes type 2, uncontrolled Hypertension Pacemaker Cardiac defibrillator in place Home Medications ?Medication ?Instructions ?Recorded ?Last Taken ?Type omega-3 fatty acids 1,000 mg 2,000 mg PO DAILY 11/14/18 Unknown History capsule (Fish Oil Concentrate) blood sugar diagnostic (OneTouch #100 ea 12/21/23 Unknown Rx Ultra Test strips) lancets 30 gauge (E-Z Ject Lancets) #100 ea 12/21/23 Unknown Rx digoxin 125 mcg (0.125 mg) tablet 125 mcg PO DAILY #30 tabs 03/20/25 Unknown Rx furosemide 20 mg tablet 20 mg PO DAILY PRN Swelling #30 03/20/25 Unknown Rx tabs glimepiride 4 mg tablet 4 mg PO QAM #30 tabs 03/20/25 Unknown Rx losartan 50 mg tablet 50 mg PO DAILY #30 tabs 03/20/25 Unknown Rx metformin 850 mg tablet 850 mg PO BID #60 tabs 03/20/25 Unknown Rx metoprolol succinate 100 mg 100 mg PO DAILY #30 tabs 03/20/25 Unknown Rx tablet,extended release 24 hr nitroglycerin 0.4 mg sublingual 0.4 mg sublingual Q5-15M PRN chest 03/20/25 Unknown Rx tablet pain #30 tabs omeprazole 40 mg capsule,delayed 40 mg PO DAILY PRN GERD #30 caps 03/20/25 Unknown Rx release pioglitazone 45 mg tablet 45 mg PO QDAY #30 tabs 03/20/25 Unknown Rx semaglutide 0.25 mg or 0.5 mg (2 0.5 mg (0.736 mL) subcut QWEEK 03/20/25 Unknown Rx mg/3 mL) subcutaneous pen injector diabetes #3 mL (Ozempic) Allergy/AdvReac Type Severity Reaction Status Date / Time sitagliptin (From [facility]) Allergy Severe Rash Verified 04/01/25 20:10 Yojwptx-NNN-DrO Reductase Allergy Intermediate cramps Verified 04/01/25 20:10 Inhibitor (Sucxeci-Wij-Tmx Reductase Inhibitor) dapagliflozin (From [facility]) AdvReac Severe yeast Verified 04/01/25 20:10 Family History Sister Breast cancer Diabetes Thyroid disorder Mother CVA (cerebral vascular accident) Diabetes Heart disease Myocardial infarction Father Heart disease Myocardial infarction Other CAD (coronary artery disease) Surgical History H/O tubal ligation H/O heart artery stent Social History Smoking Status: Never smoker ROS ROS ED Constitutional Constitutional ED: Reports sweats; Denies chills or fever(s) Cardiovascular Cardiovascular: Reports as per HPI, chest pain, palpitations and racing heartbeat Respiratory/Chest Respiratory/Chest: Reports cough, dyspnea and sputum Gastrointestinal Gastrointestinal: Denies abdominal pain, diarrhea, nausea or vomiting Musculoskeletal Musculoskeletal: Reports back pain; Denies arthralgias or myalgias Integumentary Denies rash Neurologic Neurologic: Denies paresthesias or weakness Psychiatric Psychiatric: Reports anxiety Hematologic/Lymphatic Hematologic/Lymphatic: Denies easy bleeding or easy bruising EXAM Physical Exam Const Vital Signs: 04/01/25 20:10 04/01/25 20:25 04/01/25 20:36 Temperature 98 F Temperature Source Oral Pulse Rate 127 H Respiratory Rate 33 H Blood Pressure 145/94 H 147/136 H Blood Pressure Mean 111 Pulse Ox 98 Oxygen Delivery Method Room Air Oxygen Flow Rate (L/min) 04/01/25 20:40 04/01/25 20:46 04/01/25 21:10 Temperature Temperature Source Pulse Rate 117 H 111 H Respiratory Rate 29 H 28 H Blood Pressure 137/73 H 117/95 H Blood Pressure Mean 94 102 Pulse Ox 89 94 96 Oxygen Delivery Method Room Air Nasal Cannula Nasal Cannula Oxygen Flow Rate (L/min) 2 2 04/01/25 21:30 04/01/25 22:09 04/01/25 22:30 Temperature Temperature Source Pulse Rate 109 H 108 H 111 H Respiratory Rate 31 H 31 H Blood Pressure 107/72 121/75 H 114/60 Blood Pressure Mean 83 90 78 Pulse Ox 96 95 98 Oxygen Delivery Method Nasal Cannula Nasal Cannula Oxygen Flow Rate (L/min) 2 2 04/01/25 23:00 04/01/25 23:30 04/01/25 23:42 Temperature 98 F Temperature Source Pulse Rate 70 92 92 Respiratory Rate 23 H Blood Pressure 120/70 110/82 H 110/82 H Blood Pressure Mean 86 91 91 Pulse Ox 98 96 96 Oxygen Delivery Method Oxygen Flow Rate (L/min) Positive well nourished and well developed Constitutional Narrative: Mildly ill-appearing General Appearance ED: well developed; Negative for pallor HEENT normocephalic Eyes PERRL Neck supple and no JVD Chest Wall inspection of chest normal and palpation of chest normal Resp normal respiratory effort and clear to auscultation bilaterally Cardio regular rhythm and no murmurs Rate: tachycardic Peripheral Pulses: pulses 2+ throughout GI normal to inspection, nondistended, normoactive bowel sounds, soft to palpation and non-tender Extremity normal to inspection Neuro oriented x3 Sensorium / Orientation: awake Motor Exam: Negative for general weakness Psych mental status grossly normal Mood & Affect: anxious Skin no rashes or lesions noted and no wounds General Skin Exam: Negative for jaundice or pallor Heart Score History: Moderately Suspicious ECG: Nonspecific Repolarization Age: >45 - <65 years Risk Factors: >/= 3 Risk Factors or History of CAD Troponin: >/=3 x Normal Limit Score: 7 MDM MDM MDM Narrative Medical decision making narrative: Patient is evaluated with intermittent chest pain and some associated shortness of breath for the past 2 to 3 days. Had outpatient labs because she was seen for palpitations and her troponin was elevated and she was sent to the ER. She states after finding this news her chest pain did return. Upon arrival patient is mildly hypertensive, tachypneic and tachycardic. She is placed on oxygen for comfort. Cardiac workup is initiated. EKG is not consistent with STEMI but high concern for ACS given elevated outpatient troponin with chest pain. Patient is given nitroglycerin with improvement of her pain. Is given aspirin in the emergency room. Initially started on gentle IV fluids as she did not clinically appear fluid overloaded however her chest x-ray shows pulmonary vascular congestion and BNP added on which is abated. Will diurese the patient. High-sensitivity troponin is stable and mildly downtrending. Patient's tachycardia improves. VBG is added on given her tachypnea and to ensure that she is not hypercapnic or have an underlying metabolic acidosis. This is shows a normal pH and a mildly low pCO2 which is nonspecific. Case discussed with hospitalist for admission and further cardiac evaluation. Will treat patient as NSTEMI and started on a heparin drip after discussion with hospitalist. Patient agreeable with admission. Patient's rate is not below 100. Repeat EKG does show improvement of T wave inversions and is now fully paced. Lab Data Attestation: I reviewed the patient's lab results. Labs: Laboratory Results - last 24 hr 04/01/25 04/01/25 20:14 22:26 WBC 10.0 RBC 4.99 Hgb 15.3 H Hct 46.6 MCV 93.4 MCH 30.7 MCHC 32.8 RDW Std Deviation 48.3 H RDW Coeff of Cally 14.2 Plt Count 242 MPV 12.9 H Immature Gran % (Auto) 0.200 Neut % (Auto) 40.6 L Lymph % (Auto) 47.8 H Hendry % (Auto) 9.2 Eos % (Auto) 1.3 Baso % (Auto) 0.9 Absolute Neuts (auto) 4.1 Absolute Lymphs (auto) 4.77 H Nucleated RBC % 0 D-Dimer Quant (PE/DVT) 0.37 Sodium 134 Potassium 4.3 Chloride 100 Carbon Dioxide 19.2 L Anion Gap 15 BUN 13 Creatinine 0.67 L Estim Creat Clear Calc 100.16 Est GFR (MDRD) Non-Af 99 BUN/Creatinine Ratio 19.3 Glucose 337 H Calcium 9.8 Total Bilirubin 0.57 Direct Bilirubin 0.27 AST 85 H ALT 83 H Alkaline Phosphatase 144 H Troponin T High Sens 142 H* D Troponin T Hi Sens 2 Hr 127 H* NT pro BNP II 1180 H Total Protein 7.1 Albumin 4.1 Globulin 3.0 Lipase 26 Digoxin 0.76 ABG Data ABG results: ABG 04/01/25 23:05 Specimen Type LAYO Sample Site Not entered O2 % 2.0 VBG pH 7.39 VBG pO2 39 VBG HCO3 24 VBG Total CO2 25 VBG O2 Sat (Calc) 73 H VBG Base Excess -1 POC Mix VBG pCO2 Pt Tmp 39.8 L O2 Delivery Device Cannula Radiography Chest X-Ray - ED: 1 View, Read by ED Physician, Read by Radiologist and CHF Diagnostic Testing: Clinical Impression(s) from Imaging Studies Chest X-Ray 04/01/25 20:21 IMPRESSION: Cardiomegaly with pulmonary edema. No sizable pleural effusion. Reading Location: [facility] Rhythm Strip Rhythm Strip: Sinus Tach Rate: 125 Ectopy: PVC(s) EKG Initial EKG: Attestation: I personally reviewed and interpreted this EKG as follows: Comments: Sinus tachycardia at a rate of 125 bpm with PVCs and occasional paced complexes. Nonspecific interventricular conduction delay present Relatively diffuse T wave inversions consistent with a strain pattern. Compared to prior EKG patient now has T wave inversions in inferior leads as well as leads V3 4 through V6 Prior EKG tracings: available for review Prior: Changed Follow-up EKG: Attestation: I personally reviewed and interpreted this EKG as follows: Interpretation: Paced Comments: Atrial sensed ventricular paced rhythm Reversal T wave inversions compared to prior EKG Rate of 96 bpm Management Discussion w/another healthcare provider: Hospitalist Discharge Plan Triage Chief Complaint: Chest Pain ED Provider: Mago Jang Dx/Rx/DC Orders Clinical Impression: Acute non-ST elevation myocardial infarction (NSTEMI), Congestive heart failure, CAD (coronary artery disease), Chest pain Prescriptions: No Action omega-3 fatty acids [Fish Oil Concentrate] 1,000 mg capsule 2,000 mg PO DAILY (DME) OneTouch Ultra Test Strip See Rx Instructions .Route Qty: 100 12RF Rx Instructions: As directed (DME) lancets [E-Z Ject Lancets] 30 gauge misc See Rx Instructions .Route Qty: 100 3RF Rx Instructions: As directed digoxin 125 mcg (0.125 mg) tablet 125 mcg PO DAILY Qty: 30 12RF furosemide 20 mg tablet 20 mg PO DAILY PRN (Reason: Swelling) Qty: 30 12RF glimepiride 4 mg tablet 4 mg PO QAM Qty: 30 12RF Rx Instructions: administer with breakfast losartan 50 mg tablet 50 mg PO DAILY Qty: 30 12RF metformin 850 mg tablet 850 mg PO BID Qty: 60 12RF metoprolol succinate 100 mg tablet extended release 24 hr 100 mg PO DAILY Qty: 30 12RF nitroglycerin 0.4 mg tablet, sublingual 0.4 mg SUBLINGUAL Q5-15M PRN (Reason: chest pain) Qty: 30 12RF Rx Instructions: until response; do not exceed 3 doses per episode omeprazole 40 mg capsule,delayed release(DR/EC) 40 mg PO DAILY PRN (Reason: GERD) Qty: 30 12RF pioglitazone 45 mg tablet 45 mg PO QDAY Qty: 30 12RF Ozempic 0.25 mg or 0.5 mg (2 mg/3 mL) pen injector 0.5 mg subcut QWEEK Qty: 3 6RF Primary Care Provider: Nyla Garcia NP Referrals: Nyla Garcai NP, [facility] [Primary Care Provider] - Print Language: Thai
[2025-04-01] MEDS: Nitroglycerin SL (ED/IMG/CATH) 0.4 MG TABLET SL (20:36)
[2025-04-01 20:37] LABS: Hematocrit 46.6 % (37-47); Hemoglobin 15.3 g/dL (12.0-15.0); Immature Granulocytes Count 0.020 X10^3/uL (0.0-0.0); Mean Corp Hgb Conc 32.8 g/dL (32-36); Mean Corpuscular Volume 93.4 fL (81-99); Mean Platelet Vol. 12.9 fl (6.2-12.0); NRBC Flagged by Analyzer 0 % (0-5); Platelet Count 242 K/mm3 (150-450); RBC Distribution Width CV 14.2 % (11.6-14.6); RBC Distribution Width SD 48.3 fl (35.1-43.9); Red Blood Count 4.99 M/mm3 (4.2-5.4); White Blood Count 10.0 K/mm3 (4.4-11.0)
[2025-04-01] MEDS: 0.9% Normal Saline (1000mL) 1,000 ML 250 ML IV (20:40)
[2025-04-01 20:55] LABS: D-Dimer Quantitative (DVT/PE) 0.37 FEU/ug/m (0.27-0.49)
[2025-04-01 21:27] LABS: AST(SGOT) 85 U/L (<=31); Alanine Aminotransfer ALT/SGPT 83 U/L (<=34); Albumin, Serum 4.1 g/dL (3.4-4.8); Alkaline Phosphatase 144 U/L (35-104); Anion Gap 15 (5-15); BUN 13 mg/dL (4-19); BUN/Creat Ratio 19.3 RATIO (10-20); Bilirubin, Direct 0.27 mg/dL (0.00-0.30); Calcium,Total 9.8 mg/dL (7.6-11.0); Carbon Dioxide 19.2 mmol/L (21.0-32.0); Chloride 100 mmol/L (98-108); Estimated Creatinine Clearance 100.16 ml/min (50-250); Globulin 3.0 g/dL (2.2-4.2); Glucose 337 mg/dL (70-99); Lipase 26 U/L (13-75); Potassium 4.3 mmol/L (3.3-5.1)
[2025-04-01 22:00] LABS: Troponin T High Sensitivity 142 ng/L (<=14)
[2025-04-01 22:48] LABS: Troponin T High Sens 2 HR 127 ng/L (<=14)
[2025-04-01 22:55] LABS: Pro- Brain NATRIURETIC PEPTIDE 1180 pg/mL (<=900)
[2025-04-01 23:08] LABS: FI02 2.0; SITE Not entered; VBG BASE EXCESS -1 mmol/L (-1.0-3.5); VBG PO2 39 mmHg (25-40); VBG SO2 73 % (50-70); VBG TCO2 25 mmol/L (23-33)
--- NOTE | 2025-04-01 23:46 | HP.PCM.HOS_ITS ---
HPI - General General Date of Admission: 04/02/25 Date of Service: 04/01/25 Chief Complaint: Chest discomfort and shortness of breath HPI Narrative EAMON SCHWAB, is a 64 F who presented to [facility] ED on 04/01/2025 with chest discomfort and shortness of breath. Medical history is significant for CAD with remote stenting, CHF, status post pacemaker and defibrillator placement, and poorly controlled type 2 diabetes mellitus. She saw her PCP on 03/31 and reported intermittent symptoms of chest discomfort and shortness of breath for the past 2 to 3 days. Lab work was sent and showed an elevated troponin of 153 so she was told to come to the ED for further evaluation. On arrival to the ED she was tachycardic to the 120s and mildly hypertensive, otherwise stable on room air. Per ED physician, she was pale and somewhat uncomfortable appearing. CBC and BMP were benign. Troponin trend 142 > 127 > 132. Chest x-ray showed cardiomegaly with pulmonary edema. Blood glucose 337 and last A1c 11.7% on 03/20. Patient was given a dose of nitro and had significant improvement in pain with that. Given concern for NSTEMI, hospitalist was contacted for admission. I saw the patient at bedside in the ED. Patient was sitting back fairly comfortably in bed, conversing normally, in no acute distress. Noted that her chest discomfort continues to feel improved now compared to earlier today. She does report some radiation of pain to the back over the past few days as well and this feels improved currently. Given her history and symptoms, patient was started on a heparin drip given high concern for NSTEMI. Will be admitted for further management. [facility] Medical History ESBL (extended spectrum beta-lactamase) producing bacteria infection Neuropathy Myocardial infarct GERD (gastroesophageal reflux disease) Diabetes type 2, uncontrolled Hypertension Pacemaker Cardiac defibrillator in place Home Medications ?Medication ?Instructions ?Recorded ?Last Taken ?Type blood sugar diagnostic (OneTouch #100 ea 12/21/23 Unkn own Rx Ultra Test strips) lancets 30 gauge (E-Z Ject Lancets) #100 ea 12/21/23 U nknown Rx digoxin 125 mcg (0.125 mg) tablet 125 mcg PO DAILY hea rt #30 tabs 03/20/25 04/01/25 09:00 Rx furosemide 20 mg tablet 20 mg PO DAILY PRN Swelling #30 03/20/25 Unknown Rx tabs glimepiride 4 mg tablet 4 mg PO QAM diabetes #30 tab s 03/20/25 Unknown Rx losartan 50 mg tablet 50 mg PO DAILY bp #30 tabs 0 03/20/25 04/01/25 09:00 Rx metformin 850 mg tablet 850 mg PO BID diabetes #60 t abs 03/20/25 04/01/25 09:00 Rx 850 mg metoprolol succinate 100 mg 100 mg PO DAILY heart #30 tabs 03/20/25 04/01/25 09:00 Rx tablet,extended release 24 hr nitroglycerin 0.4 mg sublingual 0.4 mg sublingual Q5-1 5M PRN chest 03/20/25 Unknown Rx tablet pain #30 tabs omeprazole 40 mg capsule,delayed 40 mg PO DAILY PRN GE RD #30 caps 03/20/25 04/01/25 09:00 Rx release semaglutide 0.25 mg or 0.5 mg (2 0.5 mg (0.736 mL) sub cut QWEEK 03/20/25 04/01/25 09:00 Rx mg/3 mL) subcutaneous pen injector diabetes #3 mL 0.5 mg (Ozempic) Allergy/AdvReac Type Severity Reaction Status Date / Time sitagliptin (From Sep) Allergy Severe Rash Verified 04/01/25 20:10 Kedrdld-GKA-IkR Reductase Allergy Intermediate cramps Verified 04/01/25 20:10 Inhibitor (Fzetddz-Kie-Jta Reductase Inhibitor) dapagliflozin (From [facility]) AdvReac Severe yeast Verified 04/01/25 20:10 Family History Sister Breast cancer Diabetes Thyroid disorder Mother CVA (cerebral vascular accident) Diabetes Heart disease Myocardial infarction Father Heart disease Myocardial infarction Other CAD (coronary artery disease) Surgical History H/O tubal ligation H/O heart artery stent Social History Smoking Status: Never smoker ROS Constitutional Constitutional: Denies chills, fatigue, fever(s) or weakness Eyes Eyes: Denies change in vision Cardiovascular Cardiovascular: Reports chest pain Respiratory/Chest Respiratory/Chest: Reports shortness of breath with exertion; Denies shortness of breath at rest or wheezing Gastrointestinal Gastrointestinal: Denies abdominal pain Musculoskeletal Musculoskeletal: Denies arthralgias or myalgias Vital Signs Vital Signs Vital Signs: 04/01/25 20:10 04/01/25 20:25 04/01/25 20:36 Temperature 98 F Temperature Source Oral Pulse Rate 127 H Respiratory Rate 33 H Blood Pressure 145/94 H 147/136 H Blood Pressure Mean 111 Pulse Ox 98 Oxygen Delivery Method Room Air Oxygen Flow Rate (L/min) 04/01/25 20:40 04/01/25 20:46 04/01/25 21:10 Temperature Temperature Source Pulse Rate 117 H 111 H Respiratory Rate 29 H 28 H Blood Pressure 137/73 H 117/95 H Blood Pressure Mean 94 102 Pulse Ox 89 94 96 Oxygen Delivery Method Room Air Nasal Cannula Nasal Cannula Oxygen Flow Rate (L/min) 2 2 04/01/25 21:30 04/01/25 22:09 04/01/25 22:30 Temperature Temperature Source Pulse Rate 109 H 108 H 111 H Respiratory Rate 31 H 31 H Blood Pressure 107/72 121/75 H 114/60 Blood Pressure Mean 83 90 78 Pulse Ox 96 95 98 Oxygen Delivery Method Nasal Cannula Nasal Cannula Oxygen Flow Rate (L/min) 2 2 04/01/25 23:00 04/01/25 23:30 04/01/25 23:42 Temperature 98 F Temperature Source Pulse Rate 70 92 92 Respiratory Rate 23 H Blood Pressure 120/70 110/82 H 110/82 H Blood Pressure Mean 86 91 91 Pulse Ox 98 96 96 Oxygen Delivery Method Oxygen Flow Rate (L/min) Weight Weight: 96.7 kg Body Mass Index (BMI) 35.4 Physical Exam Const alert, oriented x3 and no apparent distress Constitutional Narrative: Upper middle-aged female, class I obesity, poor dentition noted, mildly fatigued appearing but otherwise sitting back comfortably in bed, conversing normally, in no acute distress. General Appearance: cooperative and comfortable HEENT normocephalic, head/scalp atraumatic, hearing grossly normal bilaterally, nasal mucous membranes and turbinates normal and moist oral mucous membranes Eyes PERRL, EOMs intact bilaterally and conjunctivae normal Neck full ROM Chest inspection of chest normal Resp normal respiratory effort and no use of accessory muscles Resp Narrative: Breathing comfortably on 2 L nasal cannula at rest. Diminished breath sounds at bilateral lung bases with mild crackles noted in mid lung zones. No wheezing noted. Cardio regular rate, regular rhythm, no murmurs and peripheral pulses 2+ throughout GI normal to inspection, nondistended, normoactive bowel sounds, soft to palpation, non-tender and non-distended Back/Spine normal ROM Extremity full ROM Extremity Narrative: +1-2 lower extremity pitting edema noted. Skin no rashes or lesions noted Psych mental status grossly normal Results Lab / Micro Data 04/01/25 20:14 04/01/25 20:14 Labs: Laboratory Results - last 24 hr 04/01/25 20:14: WBC 10.0, RBC 4.99, Hgb 15.3 H, Hct 46.6, MCV 93.4, MCH 30.7, MCHC 32.8, RDW Std Deviation 48.3 H, RDW Coeff of Cally 14.2, Plt Count 242, MPV 12.9 H, Immature Gran % (Auto) 0.200, Neut % (Auto) 40.6 L, Lymph % (Auto) 47.8 H, Dundy % (Auto) 9.2, Eos % (Auto) 1.3, Baso % (Auto) 0.9, Absolute Neuts (auto) 4.1, Absolute Lymphs (auto) 4.77 H, Nucleated RBC % 0, D-Dimer Quant (PE/DVT) 0.37, Sodium 134, Potassium 4.3, Chloride 100, Carbon Dioxide 19.2 L, Anion Gap 15, BUN 13, Creatinine 0.67 L, Estim Creat Clear Calc 100.16, Est GFR (MDRD) Non-Af 99, BUN/Creatinine Ratio 19.3, Glucose 337 H, Calcium 9.8, Total Bilirubin 0.57, Direct Bilirubin 0.27, AST 85 H, ALT 83 H, Alkaline Phosphatase 144 H, Troponin T High Sens 142 H* D, Total Protein 7.1, Albumin 4.1, Globulin 3.0, Lipase 26, Digoxin 0.76 04/01/25 22:26: Troponin T Hi Sens 2 Hr 127 H*, NT pro BNP II 1180 H ABG Data ABG results: ABG 04/01/25 23:05 Specimen Type LAYO Sample Site Not entered O2 % 2.0 VBG pH 7.39 VBG pO2 39 VBG HCO3 24 VBG Total CO2 25 VBG O2 Sat (Calc) 73 H VBG Base Excess -1 POC Mix VBG pCO2 Pt Tmp 39.8 L O2 Delivery Device Cannula Imaging Radiology Impression Chest X-Ray 04/01/25 20:21 IMPRESSION: Cardiomegaly with pulmonary edema. No sizable pleural effusion. Reading Location: [id number] Assessment & Plan Assessment/Plan (1) Acute non-ST elevation myocardial infarction (NSTEMI): PLAN: Plan Patient is a 64-year-old female who presented to [facility] ED on 04/01/2025 with chest discomfort and shortness of breath. 1. NSTEMI with acute on chronic HFrEF; history of CAD with stenting, hypertension, history of pacemaker/defibrillator placement, reported history of A-fib/flutter ? Admit under inpatient status to PCU. Cardiology consulted. Presented with intermittent chest pain and shortness of breath. Troponin trend 152 > 142 > 127 > 132. EKG showed sinus tachycardia with frequent PACs and PVCs, nonspecific intraventricular block and T wave abnormalities concerning for inferior and anterolateral ischemia. NT-proBNP 1180. Chest x-ray showed cardiomegaly with vascular congestion. Last echo in 2017 per [facility] records showed EF 35%. Recent lipid panel on 03/20 showed total cholesterol 268, LDL 160, HDL 32. Patient notably is not on a statin due to intolerance. Has poorly controlled diabetes as below. Have high concern for coronary disease leading to NSTEMI given all of these risk factors. Continue heparin drip. Will start IV Lasix 40 mg twice daily for now. Monitor daily BMP and urine output. N.p.o. at midnight with likely plan for left heart cath tomorrow. Echocardiogram ordered. Continue home digoxin and Toprol at reduced dose of 50 mg daily. Hold home losartan. 2. Poorly controlled type 2 diabetes mellitus with hyperglycemia ? Blood glucose 337 on admit. A1c 11.7% on 03/18. Hold home medications. Will treat with Lantus 15 units daily and Humalog sliding scale insulin with meals while inpatient, adjust as needed. 3. Class I obesity ? BMI 31 on admit. Complicates hospital course, care and prognosis. DVT prophylaxis: Not indicated, on heparin drip CODE STATUS: Full code, verified Expected disposition: TBD Total clinical time spent by myself addressing the patient's medical issues, reviewing all the data, and collaborating with patient's care team: 75 minutes. Charges/Coding Visit Charges Inpatient E&M: 39691 Init Hosp L3
[2025-04-02] VITALS (18 sets, daily range): BP systolic 100–144; BP diastolic 63–88; PULSE 87–114; RESP 17–31; TEMP 36.3–36.7; O2SAT 93–100; BMI 31.7
--- NOTE | 2025-04-02 00:06 | ECHOCS_ITS ---
Reason For Study Reason For Study: CHEST PAIN Procedure This was a 2D Doppler, Color Flow transthoracic echocardiogram. The study was technically difficult. Due to suboptimal imaging windows. Exam performed in department. Left Ventricle Severely dilated left ventricle. There is evidence of diastolic dysfunction. Severe global left ventricular systolic dysfunction. Moderately severe segmental systolic dysfunction (see wall motion). The LV ejection fraction is 25 %. There are regional wall motion abnormalities as specified. Mid-inferoseptal : Hypokinetic. [place] : Severely Hypokinetic. Lateral [place] : Hypokinetic. Septal [place] : Hypokinetic. Anterior [place] : Hypokinetic. Right Ventricle ICD or pacer leads identified within the right ventricle. Mildly decreased right ventricular systolic function. Atria The left atrium is mildly enlarged. Mitral Valve Mild (1+) mitral valve insufficiency. Tricuspid Valve Normal tricuspid valve. Moderate pulmonary hypertension. Right ventricular systolic pressure estimated to be 62 mmHg. Trivial tricuspid valve insufficiency. Aortic Valve Normal aortic valve. Great Vessels Normal sized aortic root. The inferior vena cava is dilated. and partially collapses. Pericardium/Pleural Small left pleural effusion. Medication Diluted definity 6.0ml given slow IV push to enhance endocardial definition. MMode/2D Measurements & Calculations LVIDd: 6.4 cm IVSd: 0.84 cm LVOT diam: 1.9 cm LVIDs: 5.0 cm LVPWd: 0.79 cm LVOT area: 2.8 cm2 RVDd: 2.6 cm FS: 21.4 % Ao root diam: 3.1 cm LAV(MOD-bp): 78.3 ml LVAd ap4: 36.9 cm2 LAV(MOD-bp) Indexed: 39.9 ml/m2 LVLd ap4: 8.1 cm LAV(MOD-sp2): 75.7 ml EDV(MOD-sp4): 139.3 ml LAV(MOD-sp4): 77.3 ml EDV(sp4-el): 142.4 ml LVAs ap4: 30.5 cm2 LVLs ap4: 7.6 cm ESV(MOD-sp4): 100.2 ml ESV(sp4-el): 102.9 ml EF(MOD-sp4): 28.1 % EF(sp4-el): 27.7 % LVAd ap2: 34.9 cm2 SV(MOD-sp4): 39.1 ml SV(MOD-sp2): 35.5 ml LVLd ap2: 8.2 cm SI(MOD-sp4): 20.0 ml/m2 SI(MOD-sp2): 18.1 ml/m2 EDV(MOD-sp2): 122.2 ml EDV(sp2-el): 126.3 ml LVAs ap2: 28.7 cm2 LVLs ap2: 8.1 cm ESV(MOD-sp2): 86.7 ml ESV(sp2-el): 86.1 ml EF(MOD-sp2): 29.0 % SV(sp4-el): 39.5 ml LA dimension(2D): 5.1 cm LA A4 area: 24.4 cm2 RA A4 area: 18.2 cm2 TAPSE: 1.7 cm Time Measurements MV dec time: 0.11 sec Doppler Measurements & Calculations MV E max aakash: 103.7 cm/sec Lat Peak E' Aakash: 10.2 cm/sec Med Peak E' Aakash: 7.6 cm/sec MV A max aakash: 33.3 cm/sec E/E' lat: 10.2 E/E' med: 13.6 MV E/A: 3.1 MV V2 max: 132.9 cm/sec Ao V2 max: 94.4 cm/sec LV V1 max: 85.3 cm/sec MV max P.1 mmHg Ao max P.6 mmHg LV V1 max P.9 mmHg MV V2 mean: 69.5 cm/sec Ao V2 mean: 62.7 cm/sec LV V1 mean P.2 mmHg MV mean P.3 mmHg Ao mean P.7 mmHg LV V1 mean: 51.3 cm/sec MV V2 VTI: 23.6 cm Ao V2 VTI: 14.8 cm LV V1 VTI: 12.8 cm AV (velocity ratio): 0.87 MVA(VTI): 1.5 cm2 JT(I,D): 2.5 cm2 JT(V,D): 2.6 cm2 MR max aakash: 427.3 cm/sec SV(LVOT): 36.5 ml PA V2 max: 87.8 cm/sec MR max P.0 mmHg PA V2 mean: 53.9 cm/sec MR mean aakash: 337.0 cm/sec PA V2 VTI: 13.7 cm MR mean P.4 mmHg MR VTI: 110.0 cm PI end-d aakash: 121.3 cm/sec TR max aakash: 356.9 cm/sec TR max P.9 mmHg ECHO/Echo Complete W/ Contrast Interpretation Summary Severe global left ventricular systolic dysfunction. The LV ejection fraction is 25 %. Focal on global wall moition ICD or pacer leads identified within the right ventricle. There is evidence of diastolic dysfunction. Moderate pulmonary hypertension. Severely dilated left ventricle. Ordering Physician: Franko Cueto Referring Physician: Nyla Garcia Performed By: Wilbert PATINO RDCS, Lydia and Student
[2025-04-02 00:08] LABS: Partial Thromboplast Time 26.7 Seconds (24.1-36.2)
[2025-04-02 00:12] LABS: Prothrombin Time (Protime)PT. 12.7 SECONDS (11.7-14.9)
[2025-04-02] MEDS: Heparin Injection (Vial) 5,000 UNIT/ML VIAL 4000 UNIT IV (00:12)
[2025-04-02] MEDS: HEPARIN/D5w 25,000 UNITS 25,000 UNITS/250 ML IV.SOLN. 10 UNITS CONT INF (00:17)
[2025-04-02 01:21] LABS: Troponin T High Sens 4 HR 132 ng/L (<=14)
[2025-04-02] MEDS: Insulin Glargine-YFGN 100 UNIT/ML Pen 15 UNIT SC ×2 (04:56→21:11)
[2025-04-02] MEDS: Metoprolol(XL)Succ 50 MG Tablet PO (06:40)
--- NOTE | 2025-04-02 07:05 | PCM.PN.HOSP ---
Reason for Visit Reason for Visit: Diagnoses Non-ST elevation (NSTEMI) myocardial infarction (04/02/25) Subjective Subjective Patient with no acute events overnight per self and per nursing report. Patient is upright seated in a PCU chair and notes that her chest pain is completely resolved. She has had a couple bouts of short bursts of VT but is asymptomatic. She denies any dyspnea sensation. Patient has also been evaluated by cardiology and notes that plan of care is for cardiac catheterization. Also given her history discussed plan to add Zetia and pending what they find on cardiac catheterization may require repeat trial of statins but a different type as she has been unable in the past to tolerate them secondary to myalgias. Patient denies fevers, chills, nausea, emesis, abdominal pain or dyspnea. Objective Data Objective Data Vital Signs: Vital Signs Temp Pulse Resp BP Pulse Ox O2 Del Method O2 Flow Rate 97.4 F L 97 18 100/68 93 Room Air 2 04/02/25 06:38 04/02/25 06:40 04/02/25 06:38 04/02/25 06:40 04/02/25 06:38 04/02/25 06:38 04/02/25 03:37 Oxygen Flow Rate (L/min) 2 Oxygen Delivery Method Room Air Weight: 196 lb 10.437 oz Body Mass Index (BMI) 31.7 Intake & Output: Intake and Output for Last 24 Hours 03/31/25 04/01/25 04/02/25 23:59 23:59 23:59 Intake Total 1000 / 1000 Balance 1000 / 1000 Lab / Micro Data 04/02/25 06:16 04/02/25 06:16 Labs: Laboratory Results - last 24 hr 04/01/25 20:14: WBC 10.0, RBC 4.99, Hgb 15.3 H, Hct 46.6, MCV 93.4, MCH 30.7, MCHC 32.8, RDW Std Deviation 48.3 H, RDW Coeff of Cally 14.2, Plt Count 242, MPV 12.9 H, Immature Gran % (Auto) 0.200, Neut % (Auto) 40.6 L, Lymph % (Auto) 47.8 H, [place] % (Auto) 9.2, Eos % (Auto) 1.3, Baso % (Auto) 0.9, Absolute Neuts (auto) 4.1, Absolute Lymphs (auto) 4.77 H, Nucleated RBC % 0, PT 12.7, INR 0.9, APTT 26.7, D-Dimer Quant (PE/DVT) 0.37, Sodium 134, Potassium 4.3, Chloride 100, Carbon Dioxide 19.2 L, Anion Gap 15, BUN 13, Creatinine 0.67 L, Estim Creat Clear Calc 100.16, Est GFR (MDRD) Non-Af 99, BUN/Creatinine Ratio 19.3, Glucose 337 H, Calcium 9.8, Total Bilirubin 0.57, Direct Bilirubin 0.27, AST 85 H, ALT 83 H, Alkaline Phosphatase 144 H, Troponin T High Sens 142 H* D, Total Protein 7.1, Albumin 4.1, Globulin 3.0, Lipase 26, Digoxin 0.76 04/01/25 22:26: Troponin T Hi Sens 2 Hr 127 H*, NT pro BNP II 1180 H 04/02/25 00:31: Troponin T Hi Sens 4Hr 132 H* 04/02/25 03:40: POC Glucose 391 H 04/02/25 06:33: POC Glucose 249 H ABG Data ABG results: ABG 04/01/25 23:05 Specimen Type LAYO Sample Site Not entered O2 % 2.0 VBG pH 7.39 VBG pO2 39 VBG HCO3 24 VBG Total CO2 25 VBG O2 Sat (Calc) 73 H VBG Base Excess -1 POC Mix VBG pCO2 Pt Tmp 39.8 L O2 Delivery Device Cannula Radiography Diagnostic Testing: Radiology Impression Chest X-Ray 04/01/25 20:21 IMPRESSION: Cardiomegaly with pulmonary edema. No sizable pleural effusion. Reading Location: [id number] Rhythm Strip Rhythm Strip: Sinus Tach Rate: 125 Ectopy: PVC(s) Physical Exam Narrative Physical Examination: General: Awake, alert, oriented x 3 and cooperative, seated upright in PCU bedside chair, no acute complaint, denies any current chest pain. Skin: Normal color, normal turgor, no icterus, no cyanosis except occasional stage ecchymoses. HEENT: AT/NC, EOMI, PERRLA, MMM. Lungs: CTA bilaterally, moderate effort, mild decrease BL bases, no rales, ronchi or wheezing. Heart: Regular rate and rhythm; no gallop, rub audible. Abdomen: Soft, obese, NTTP, ND, normal BS. Extremities: No cyanosis, no clubbing, mild trace distal edema. Neurological: Patient awake, alert, oriented as noted, cognitive function intact; pupils equally reactive to light and accommodation, cranial nerves grossly normal, moving all 4 extremities, no focal deficits, strength improved, intact. Psychiatric: Affect appears normal, no acute evidence of depressive or anxiety feelings. Assessment & Plan Assessment/Plan (1) Acute non-ST elevation myocardial infarction (NSTEMI): PLAN: Plan The patient is a 64 y/o F w/ PMHx: GERD, PAF/Flutter, Obesity, CAD s/p PCI, HTN, HLD, HFrEF, Diabetes mellitus type II poorly controlled who [facility] ED [facility] 04[facility] with history of chest pain/discomfort in addition to dyspnea prompting eventual ED evaluation. #1. Acute chest discomfort and dyspnea secondary to acute NSTEMI w/ CAD s/p prior PCI history with Acute on Chronic Mild HFrEF Exacerbation: Admitted to PCU, status post previous AICD/pacemaker placement with interrogation requested per cardiology, cardiac troponin enzyme trend series elevated but trended downward 152 > 142 > 127 > 132, presentation EKG with sinus tachycardia with frequent PAC/PVC with nonspecific interventricular block and T wave abnormalities, NT-proBNP 1180. Chest x-ray showed cardiomegaly with vascular congestion. Most recently prior ECHO 2016 per [facility] records showed EF 35% w/ repeat 04/02/25 ECHO w/ severe global LV systolic dysfunction, LVEF 25%, focal on global wall motion abnormalities, evidence of ICD/pacer leads, diastolic dysfunction evident, moderate pulmonary hypertension, severely dilated LV. FLP with triglyceride 316, total cholesterol 220, LDL 125, VLDL 63, HDL 32 with Zetia 10 mg initiated. Per discussion with cardiology if cardiac catheterization is concerning and requires intervention patient may need to be initiated on statin therapy of alternate type and potentially even Repatha outpatient at cardiology follow-up. Patient maintained on heparin drip, will continue aspirin, metoprolol, losartan in addition to Zetia added as noted. Given appearance upon presentation patient only bolused x 1 with Lasix 40 mg x 1 in the ED and then transition to home Lasix 20 mg daily dosing. Awaiting cardiac catheterization results for further planning. If cardiac cath is unremarkable receiving associate did note that given her current improvement she would be appropriate for potential discharge to home with follow-up outpatient. #2. PAF/Flutter: Status post pacemaker/defibrillator placement, maintained on heparin drip given acute presentation as noted #1, continued on metoprolol, digoxin. #3. Hypertension: Continue home regimen including metoprolol, losartan, recently reinitiated oral Lasix as noted above, PRN hydralazine. #4. Hyperlipidemia: FLP with triglyceride 316, total cholesterol 220, LDL 125, VLDL 63, HDL 32 with Zetia 10 mg initiated. Per discussion with cardiology if cardiac catheterization is concerning and requires intervention patient may need to be initiated on statin therapy of alternate type and potentially even Repatha outpatient at cardiology follow-up. #5. Diabetes mellitus type II, poorly controlled with hyperglycemia: Admission glucose 337. Following cardiac catheterization will allow ADA diet, accu checks w/ ISS, most recently 03/18 HgBA1c 11.7%, upon admission placed on Lantus 15 unit daily as well as insulin sliding scale with adjustments as needed. #6. Obesity: Weight loss and lifestyle changes encouraged. #7. GERD: Will continue patient on PPI. #8. DVT prophylaxis: Will maintain on heparin drip pending cardiology catheterization. #9. Code status: Full Code. Charges/Coding Visit Charges Inpatient E&M: 83855 Subs Hosp L3
[2025-04-02 07:18] LABS: Hematocrit 42.6 % (37-47); Hemoglobin 13.9 g/dL (12.0-15.0); Mean Corp Hgb Conc 32.6 g/dL (32-36); Mean Corpuscular Volume 92.2 fL (81-99); Mean Platelet Vol. 13.0 fl (6.2-12.0); Platelet Count 211 K/mm3 (150-450); RBC Distribution Width CV 14.1 % (11.6-14.6); RBC Distribution Width SD 47.4 fl (35.1-43.9); Red Blood Count 4.62 M/mm3 (4.2-5.4); White Blood Count 7.4 K/mm3 (4.4-11.0)
[2025-04-02 07:31] LABS: Partial Thromboplast Time 35.9 Seconds (24.1-36.2)
[2025-04-02 07:35] LABS: Anion Gap 13 (5-15); BUN 12 mg/dL (4-19); BUN/Creat Ratio 21.7 RATIO (10-20); Calcium,Total 9.2 mg/dL (7.6-11.0); Carbon Dioxide 21.2 mmol/L (21.0-32.0); Chloride 103 mmol/L (98-108); Estimated Creatinine Clearance 115.12 ml/min (50-250); Glucose 253 mg/dL (70-99); Potassium 3.9 mmol/L (3.3-5.1)
[2025-04-02] MEDS: Heparin Injection (Vial) 5,000 UNIT/ML VIAL IV (07:43)
[2025-04-02 08:01] LABS: Cholesterol 220 mg/dL (<=200); Low Density Lipoprotein Calc. 125 mg/dL; Magnesium 2.0 mg/dL (1.5-2.2); Triglycerides 316 mg/dL; Very Low Density Lipoprotein 63 mg/dL (5-40); cholesterol:hdl ratio screen 6.96
--- NOTE | 2025-04-02 08:44 | PCM.CONS.C ---
Assessment & Plan Assessment/Plan (1) Acute non-ST elevation myocardial infarction (NSTEMI): PLAN: Continue with IV heparin Continue with aspirin Keep NPO for left heart catheterization later on today (2) Congestive heart failure: PLAN: Acute on chronic HFrEF 25% Continue with metoprolol succinate 100 mg daily Continue with losartan 50 mg daily Start Spironolactone 12.5 mg daily Start IV Lasix 20 mg daily (3) CAD (coronary artery disease): QUALIFIERS: Coronary Disease-Associated Artery/Lesion type: due to lipid rich plaque Qualified Code(s): I25.10 - Atherosclerotic heart disease of [place] coronary artery without angina pectoris; I25.83 - Coronary atherosclerosis due to lipid rich plaque PLAN: Continue with aspirin Start zeita and will need to be on [id number] as an outpatient Check Vitamin D if needed will start her on crestor as inpatient if she is needing PCI HPI Consult Data Date of Consult: 04/02/25 HPI Narrative Reason for Consultation: Chest pain HPI Narrative: EAMON SCHWAB with PMH of remote CAD status post MORGAN to LAD in 2010 at [facility], hypertension, paroxysmal atrial fibrillation not on AC on digoixn and HFrEF status post BIV [facility] implanted in 2012 presented with chest pain worse on exertion associated with shortness of breath found to have elevated troponin at 153. She had recent cold symptoms. She denies any history of stroke, fever, nausea, vomiting, bleeding. she denies any palpitations. she had history of severe myalgia when she had statin. [facility] Medical History ESBL (extended spectrum beta-lactamase) producing bacteria infection Neuropathy Myocardial infarct GERD (gastroesophageal reflux disease) Diabetes type 2, uncontrolled Hypertension Pacemaker Cardiac defibrillator in place Home Medications ?Medication ?Instructions ?Recorded ?Last Taken ?Type blood sugar diagnostic (OneTouch #100 ea 12/21/23 Unknown Rx Ultra Test strips) lancets 30 gauge (E-Z Ject Lancets) #100 ea 12/21/23 Unknown Rx digoxin 125 mcg (0.125 mg) tablet 125 mcg PO DAILY heart #30 tabs 03/20/25 04/01/25 09:00 Rx furosemide 20 mg tablet 20 mg PO DAILY PRN Swelling #30 03/20/25 Unknown Rx tabs glimepiride 4 mg tablet 4 mg PO QAM diabetes #30 tabs 03/20/25 Unknown Rx losartan 50 mg tablet 50 mg PO DAILY bp #30 tabs 03/20/25 04/01/25 09:00 Rx metformin 850 mg tablet 850 mg PO BID diabetes #60 tabs 03/20/25 04/01/25 09:00 Rx 850 mg metoprolol succinate 100 mg 100 mg PO DAILY heart #30 tabs 03/20/25 04/01/25 09:00 Rx tablet,extended release 24 hr nitroglycerin 0.4 mg sublingual 0.4 mg sublingual Q5-15M PRN chest 03/20/25 Unknown Rx tablet pain #30 tabs omeprazole 40 mg capsule,delayed 40 mg PO DAILY PRN GERD #30 caps 03/20/25 04/01/25 09:00 Rx release semaglutide 0.25 mg or 0.5 mg (2 0.5 mg (0.736 mL) subcut QWEEK 03/20/25 04/01/25 09:00 Rx mg/3 mL) subcutaneous pen injector diabetes #3 mL 0.5 mg (Ozempic) Allergy/AdvReac Type Severity Reaction Status Date / Time sitagliptin ([facility]) Allergy Severe Rash Verified 04/01/25 20:10 Itrtpnu-GEF-SrD Reductase Allergy Intermediate cramps Verified 04/01/25 20:10 Inhibitor (Glibkpq-Wvx-Fam Reductase Inhibitor) dapagliflozin (From [facility]) AdvReac Severe yeast Verified 04/01/25 20:10 Family History Sister Breast cancer Diabetes Thyroid disorder Mother CVA (cerebral vascular accident) Diabetes Heart disease Myocardial infarction Father Heart disease Myocardial infarction Other CAD (coronary artery disease) Surgical History H/O tubal ligation H/O heart artery stent Social History Smoking Status: Never smoker ROS Constitutional Constitutional: Reports systems reviewed and no addt'l complaints, except as documented and as per HPI Eyes Eyes: Reports systems reviewed and no addt'l complaints, except as documented ENT HEENT: Reports systems reviewed and no addt'l complaints, except as documented Cardiovascular Cardiovascular: Reports chest pain with activity, dyspnea on exertion, easily tiring during activity, orthopnea, pedal edema and rapid heart rate; Denies arrhythmia on telemetry, chest pain at rest, dyspnea at rest, lightheadedness, nausea or vomiting Respiratory/Chest Respiratory/Chest: Reports systems reviewed and no addt'l complaints, except as documented Gastrointestinal Gastrointestinal: Reports systems reviewed and no addt'l complaints, except as documented Integumentary Integumentary: Reports systems reviewed and no addt'l complaints, except as documented Neurologic Neurologic: Reports systems reviewed and no addt'l complaints, except as documented Physical Exam Const alert and oriented x3 HEENT normocephalic Eyes PERRL Neck full ROM Chest inspection of chest normal Resp normal respiratory effort Cardio regular rate Jugular Venous Distention: JVD Rhythm: regular rhythm Heart Sounds: S1 normal Back/Spine no CVA tenderness Extremity General Extremity: edema Skin no rashes or lesions noted Risk Stratification Risk Stratification Applicable: Yes Age >/= 65: No >/= 3 CAD Risk Factors (HTN, HLD, DM, family hx of CAD, or current smoker): Yes Aspirin Use in the Past 7 Days: Yes Severe Angina (>/= episodes in 24 hours): Yes EKG ST Changes >/= 0.5mm: No Positive Cardiac Marker: Yes GILSON Risk Stratification Score: 4 GILSON % Risk: 20% Risk Objective Data Vital Signs: Vital Signs Temp Pulse Resp BP Pulse Ox O2 Del Method O2 Flow Rate 98.0 F 91 17 105/65 95 Room Air 2 04/02/25 08:37 04/02/25 08:37 04/02/25 08:37 04/02/25 08:37 04/02/25 08:37 04/02/25 08:37 04/02/25 03:37 Oxygen Flow Rate (L/min) 2 Oxygen Delivery Method Room Air Weight: 196 lb 10.437 oz Body Mass Index (BMI) 31.7 Intake & Output: Intake and Output for Last 24 Hours 03/31/25 04/01/25 04/02/25 23:59 23:59 23:59 Intake Total 1074.5 / 1074.5 Balance 1074.5 / 1074.5 Lab / Micro Data 04/02/25 06:16 04/02/25 06:16 Labs: Laboratory Results - last 24 hr 04/01/25 20:14: WBC 10.0, RBC 4.99, Hgb 15.3 H, Hct 46.6, MCV 93.4, MCH 30.7, MCHC 32.8, RDW Std Deviation 48.3 H, RDW Coeff of Cally 14.2, Plt Count 242, MPV 12.9 H, Immature Gran % (Auto) 0.200, Neut % (Auto) 40.6 L, Lymph % (Auto) 47.8 H, [place] % (Auto) 9.2, Eos % (Auto) 1.3, Baso % (Auto) 0.9, Absolute Neuts (auto) 4.1, Absolute Lymphs (auto) 4.77 H, Nucleated RBC % 0, PT 12.7, INR 0.9, APTT 26.7, D-Dimer Quant (PE/DVT) 0.37, Sodium 134, Potassium 4.3, Chloride 100, Carbon Dioxide 19.2 L, Anion Gap 15, BUN 13, Creatinine 0.67 L, Estim Creat Clear Calc 100.16, Est GFR (MDRD) Non-Af 99, BUN/Creatinine Ratio 19.3, Glucose 337 H, Calcium 9.8, Total Bilirubin 0.57, Direct Bilirubin 0.27, AST 85 H, ALT 83 H, Alkaline Phosphatase 144 H, Troponin T High Sens 142 H* D, Total Protein 7.1, Albumin 4.1, Globulin 3.0, Lipase 26, Digoxin 0.76 04/01/25 22:26: Troponin T Hi Sens 2 Hr 127 H*, NT pro BNP II 1180 H 04/02/25 00:31: Troponin T Hi Sens 4Hr 132 H* 04/02/25 03:40: POC Glucose 391 H 04/02/25 06:16: WBC 7.4, RBC 4.62, Hgb 13.9, Hct 42.6, MCV 92.2, MCH 30.1, MCHC 32.6, RDW Std Deviation 47.4 H, RDW Coeff of Cally 14.1, Plt Count 211, MPV 13.0 H, APTT 35.9, Sodium 137, Potassium 3.9, Chloride 103, Carbon Dioxide 21.2, Anion Gap 13, BUN 12, Creatinine 0.57 L, Estim Creat Clear Calc 115.12, Est GFR (MDRD) Non-Af 103, BUN/Creatinine Ratio 21.7 H, Glucose 253 H, Calcium 9.2, Magnesium 2.0, Triglycerides 316 H, Cholesterol 220 H, LDL Cholesterol, Calc 125, VLDL Cholesterol 63 H, HDL Cholesterol 32 L, Cholesterol/HDL Ratio 6.96 04/02/25 06:33: POC Glucose 249 H ABG Data ABG results: ABG 04/01/25 23:05 Specimen Type LAYO Sample Site Not entered O2 % 2.0 VBG pH 7.39 VBG pO2 39 VBG HCO3 24 VBG Total CO2 25 VBG O2 Sat (Calc) 73 H VBG Base Excess -1 POC Mix VBG pCO2 Pt Tmp 39.8 L O2 Delivery Device Cannula Rhythm Strip Rhythm Strip: Sinus Tach Rate: 125 Ectopy: PVC(s) Cardiology Labs/Tests 04/01/25 20:14: WBC 10.0, RBC 4.99, Hgb 15.3 H, Hct 46.6, MCV 93.4, MCH 30.7, MCHC 32.8, Plt Count 242, MPV 12.9 H, Immature Gran % (Auto) 0.200, Neut % (Auto) 40.6 L, Lymph % (Auto) 47.8 H, [place] % (Auto) 9.2, Eos % (Auto) 1.3, Baso % (Auto) 0.9, Absolute Neuts (auto) 4.1, Nucleated RBC % 0, PT 12.7, INR 0.9, APTT 26.7, D-Dimer Quant (PE/DVT) 0.37, Sodium 134, Potassium 4.3, Chloride 100, Carbon Dioxide 19.2 L, Anion Gap 15, BUN 13, Creatinine 0.67 L, Est GFR (MDRD) Non-Af 99, BUN/Creatinine Ratio 19.3, Glucose 337 H, Calcium 9.8, Total Bilirubin 0.57, Direct Bilirubin 0.27, Digoxin 0.76 04/01/25 23:05: VBG pH 7.39, VBG pO2 39, VBG HCO3 24, VBG O2 Sat (Calc) 73 H, VBG Base Excess -1 04/02/25 06:16: WBC 7.4, RBC 4.62, Hgb 13.9, Hct 42.6, MCV 92.2, MCH 30.1, MCHC 32.6, Plt Count 211, MPV 13.0 H, APTT 35.9, Sodium 137, Potassium 3.9, Chloride 103, Carbon Dioxide 21.2, Anion Gap 13, BUN 12, Creatinine 0.57 L, Est GFR (MDRD) Non-Af 103, BUN/Creatinine Ratio 21.7 H, Glucose 253 H, Calcium 9.2, Magnesium 2.0, Triglycerides 316 H, Cholesterol 220 H, VLDL Cholesterol 63 H, HDL Cholesterol 32 L, Cholesterol/HDL Ratio 6.96 Rhythm: EKG: ECHO: Stress Test: Cardiac Cath: PCI: CT Surgery: Holter monitor: EPS: PPM: CXR: Chest CT Scan: Radiography Diagnostic Testing: Radiology Impression Chest X-Ray 04/01/25 20:21 IMPRESSION: Cardiomegaly with pulmonary edema. No sizable pleural effusion. Reading Location: [id number]
--- NOTE | 2025-04-02 09:12 | CASEMGMT ---
GABBIE PALACIOS NOTE: Insurance review for hospitals In-network with?[employer] [place] Super[employer] PPO?insurance if transfer is recommended is as follows: [facility], [facility], [place], [facility], [facility], [facility], , [facility], [facility], and [place]. Ashwin SMITHN RN CM
--- NOTE | 2025-04-02 09:12 | CASEMGMT ---
GABBIE PALACIOS NOTE: Insurance review for hospitals In-network with?[employer] [place] Super[employer] PPO?insurance if transfer is recommended is as follows: [facility], [facility], [place], [facility], [facility], [facility], , [facility], [facility], and [place]. Ashwin SMITHN RN CM
[2025-04-02 10:21] LABS: Vitamin D,25 Hydroxy 36.7 ng/mL (30-100)
--- NOTE | 2025-04-02 11:54 | NURSING ---
Report called to roofing laborer RN, Jesús. Patient being taken down with heparin gtt at 12ml/hr per cardiology.
--- NOTE | 2025-04-02 11:54 | NURSING ---
Report called to labview programmer RN, Jesús. Patient being taken down with heparin gtt at 12ml/hr per cardiology.
[2025-04-02 13:12] LABS: ACT Activated Clotting Time 187 sec (74-137)
[2025-04-02 13:12] LABS: ACT Activated Clotting Time 377 sec (74-137)
--- NOTE | 2025-04-02 13:49 | CRPHASE1 ---
Patient Communication Patient Information Former Patient:: Phase I PHII Cardiac Rehab Discussed with Patient:: Yes Guide to Cardiac Rehab Given to Patient:: Yes Cardiac Rehab Facility Choice List Given to Patient:: Yes Communication to Cardiac Rehab Choice Program [facility] CR PHII:: Communication Given to CR Sales Specialist:: Kalen Edwards Phase II Cardiac Rehab:: Yes Sessions:: 36 sessions - 3 days/wk, 12 weeks Cardiac Rehabilitation Info Program Information Cardiac Rehabilitation Program Information: Cardiac Rehab The cardiac rehab team at [facility] consists of highly skilled exercise physiologists, nurses, respiratory therapists and physicians working together with you. Our purpose is to help you have a full recovery and achieve the goals you set for yourself. Over the years many of our patients have returned to activities they assumed they would never do again! We can help restore your confidence and motivation to make lifestyle changes that can have a significant impact on your health and quality of life! We can help answer questions and concerns you may have about exercise, lifestyle, medications, diet, stress and anxiety which are common following a hospitalization. WE monitor ECG and vital signs during exercise and discuss your progress with you and report to your physician(s). Cardiac Rehab is proven to help reduce readmissions, improve functional capacity and lower recurrence of problems with your heart. Our Cardiac Rehab program is Certified by the [place] Association of Cardio-Vascular and Pulmonary Rehabilitation (AACVPR) and Accredited by the [place] College of Cardiology through our [facility]. You can contact us at . We invite you to call us with your questions or to get started in our program. If you have other questions or concerns be sure to ask your physician/provider during your follow-up visit. WE look forward to seeing you!
--- NOTE | 2025-04-02 13:49 | CRPHASE1 ---
Patient Communication Patient Information Former Patient:: Phase I PHII Cardiac Rehab Discussed with Patient:: Yes Guide to Cardiac Rehab Given to Patient:: Yes Cardiac Rehab Facility Choice List Given to Patient:: Yes Communication to Cardiac Rehab Choice Program [facility] CR PHII:: Communication Given to CR Campus Receptionist:: Kalen Edwards Phase II Cardiac Rehab:: Yes Sessions:: 36 sessions - 3 days/wk, 12 weeks Cardiac Rehabilitation Info Program Information Cardiac Rehabilitation Program Information: Cardiac Rehab The cardiac rehab team at [facility] consists of highly skilled exercise physiologists, nurses, respiratory therapists and physicians working together with you. Our purpose is to help you have a full recovery and achieve the goals you set for yourself. Over the years many of our patients have returned to activities they assumed they would never do again! We can help restore your confidence and motivation to make lifestyle changes that can have a significant impact on your health and quality of life! We can help answer questions and concerns you may have about exercise, lifestyle, medications, diet, stress and anxiety which are common following a hospitalization. WE monitor ECG and vital signs during exercise and discuss your progress with you and report to your physician(s). Cardiac Rehab is proven to help reduce readmissions, improve functional capacity and lower recurrence of problems with your heart. Our Cardiac Rehab program is Certified by the [place] [employer] Pulmonary [employer] (AACVPR) and Accredited by the [place] [employer] through our [facility]. You can contact us at . We invite you to call us with your questions or to get started in our program. If you have other questions or concerns be sure to ask your physician/provider during your follow-up visit. WE look forward to seeing you!
--- NOTE | 2025-04-02 13:50 | CRPH1.INSTRU ---
General Education Discussed with Patient CAD and cardiac anatomy and function:: Patient communicates acknowledgment Explanation of diagnoses and procedures:: Patient communicates acknowledgment Sign/Symptoms of LA:: Patient communicates acknowledgment Antiplatelet therapy: Patient communicates acknowledgment Proper use of NTG-SL: Patient communicates acknowledgment Emergency procedures and activation of EMS: Patient communicates acknowledgment Compliance of all prescribed medications: Patient communicates acknowledgment Smoking Risk Factors Patient Nicotine/Smoking Risk Factors Are:: Non-smoker Recommendations Recommendations Include:: Second-hand smoke recommendation Response Code Nicotine/Smoking Response Code:: Patient communicates acknowledgment Dyslipidemia Recommendations Recommendations Include:: Lipid profile not available Response Code Dyslipidemia Response Code:: Patient communicates acknowledgment Overweight/Obesity Risk Factors Patient Overweight/Obesity Risk Factors Are:: Obesity - > or = 30 Recommendations Recommendations Include:: Weight loss of 5-10%, Reduced calorie diet and Exercise 5-7 times/week Response Code Overweight/Obesity:: Patient communicates acknowledgment Hypertension Recommendations Recommendations Include:: BP <130/80 if diabetic Response Code Hypertension:: Patient communicates acknowledgment Heart Disease Risk Factors Patient Heart Disease Risk Factors Are:: Previous cardiac event Recommendations Recommendations Include:: Educated family members of their risk Response Code Heart Disease Response Code:: Patient communicates acknowledgment Diabetes Recommendations Recommendations Include:: Maintain fasting blood sugars 70-110 md/dL, Maintain HgbA1c of 6% or less and Decrease/maintain body weight Response Code Diabetes:: Patient communicates acknowledgment Metabolic Syndrome Recommendations Recommendations Include:: Does not meet criteria Sedentary Risk Factors Patient Sedentary Risk Factors Are:: Lack of regular exercise Recommendations Recommendations Include:: Benefits of regular exercise and Monitored Outpatient Cardiac Rehab Response Code Sedentary Response Code:: Patient communicates acknowledgment Stress Recommendations Recommendations Include:: Identification of stressors, and assessment of coping skills and Stress management techniques Response Code Stress Response Code:: Patient communicates acknowledgment
--- NOTE | 2025-04-02 13:55 | CASEMGMT ---
RN?CM?ASSESSMENT ? RN?CM?to room to meet with patient for initial transition planning/care coordination?assessment.?RN?CM?introduced self and role at [facility].? Pt voices understanding and consents to?assessment?at this time.? Pt resting in bed in no distress at this time.? Pt is A/O at this time and answers all questions appropriately.?? Care providers, pharmacy, and demographics verified/updated at this time. ? Strata:2 PCP:RADHA Garcia Specialists: Dr Pettit-Heat Treat Operator @ [facility]. She also goes to the pacer clinic there. Preferred Pharmacy: Pt goes to [facility] in [place]. Pt to discharge home on Brilinta. She states to use [facility] retail @ discharge. Insurance: MMO Prescription Benefit:?yes LNOK: , Ran Living Arrangements: Lives w/ and 21-yr-old granddaughter (she stays w/them part-time) in a 2-story home w/1 step to enter. Bedroom and bathroom upstairs. There is a bathroom on main floor. Pt states she is careful on the steps and states, I take them one at a time. Pt is independent w/ADL's and manages her own medications. Pt and share home mgnt tasks. Transportation:?Pt states drives self and states no transportation concerns at this time.? also drives. DME: States has the following DME:?functioning glucometer w/sufficient testing supplies ? Pt states no need for further DME at this time.? HHC/SNF: No hx. No needs identified. ? Pt wishes to return home and states has no concerns with going home at time of discharge. CM?to follow for any discharge planning/needs.? Pt voices no further concerns/needs at this time.? Advised pt to ask for?CM?if any further questions/concerns/needs arise.? Voices understanding. ? PLAN:??Home on Brilinta ? Ashwin BSN?RN?CM ?
--- NOTE | 2025-04-02 13:55 | CASEMGMT ---
RN?CM?ASSESSMENT ? RN?CM?to room to meet with patient for initial transition planning/care coordination?assessment.?RN?CM?introduced self and role at [facility].? Pt voices understanding and consents to?assessment?at this time.? Pt resting in bed in no distress at this time.? Pt is A/O at this time and answers all questions appropriately.?? Care providers, pharmacy, and demographics verified/updated at this time. ? Strata:2 PCP:RADHA Garcia Specialists: Dr Pettit-Architectural Project Manager @ [facility]. She also goes to the pacer clinic there. Preferred Pharmacy: Pt goes to [facility] in [place]. Pt to discharge home on Brilinta. She states to use [facility] retail @ discharge. Insurance: MMO Prescription Benefit:?yes LNOK: , Ran Living Arrangements: Lives w/ and 21-yr-old granddaughter (she stays w/them part-time) in a 2-story home w/1 step to enter. Bedroom and bathroom upstairs. There is a bathroom on main floor. Pt states she is careful on the steps and states, I take them one at a time. Pt is independent w/ADL's and manages her own medications. Pt and share home mgnt tasks. Transportation:?Pt states drives self and states no transportation concerns at this time.? also drives. DME: States has the following DME:?functioning glucometer w/sufficient testing supplies ? Pt states no need for further DME at this time.? HHC/SNF: No hx. No needs identified. ? Pt wishes to return home and states has no concerns with going home at time of discharge. CM?to follow for any discharge planning/needs.? Pt voices no further concerns/needs at this time.? Advised pt to ask for?CM?if any further questions/concerns/needs arise.? Voices understanding. ? PLAN:??Home on Brilinta ? Ashwin BSN?RN?CM ?
--- NOTE | 2025-04-02 14:43 | PCIREPORT_ITS ---
PCI Cardiac Cath Report PCI Report: DATE OF PROCEDURE: April 02, 2025 PROCEDURES PERFORMED: 1. Selective left and right coronary angiography. 2. Moderate conscious sedation 3. Percutaneous coronary intervention to left circumflex 4. IFR to LAD Indications FOR PROCEDURE: NSTEMI Complications: NONE Specimen: NONE Access: Right Radial Artery Hemostasis: TR band DESCRIPTION OF PROCEDURE: After informed consent was obtained, the patient was brought down to the carpenter labor supervisor in a fasting state. Right wrist area was prepped, draped and sterilized in the usual fashion. Moderate conscious sedation, administration, documentation and physiologic monitoring of the IV conscious sedation was performed under my direct supervision by a trained registered nurse. Intraservice time started at 12:22 and ended at 13:06 Using modified Seldinger technique, right radial artery was then cannulated. A 6-Irish sheath was inserted, sheath was flushed. 4F JR4 catheter was used to engage the right coronary and 5f JL-4 catheter was used to engage Left coronary artery. Multiple orthogonal images were then taken. Aortic valve was not crossed due to the concern of LV mass. After reviewing angiogram,we decided to intervene on LCX. LCX: Using 6 Fr EBU 3.5, LCX was wired then 2.5x12 NC was used to dilate the lesion then 3.0x26 [place] stent was deployed at 12 lis and post dialted using 3.5mm NC. Final angiogram showed normal flow, no dissection. GILSON flow pre: 2 GILSON flow post :3 Lesion severity before PCI: 95% Lesion severity after PCI: 0% Then we did IFR to the LAD and it resulted at 0.67. Wire and catheter were taken out. TR band was applied. The patient was sent to floor in stable condition. HEMODYNAMICS: LVEDP 18 DESCRIPTION OF CORONARY ANATOMY: The left main originates from the left coronary sinus of Valsalva in the usual fashion. There was good reflux of dye from this vessel into the coronary sinus, there was no ventriculization or dampening of pressure noted. The LM bifurcates into LAD and LCX . It has no significant CAD noted. The left anterior descending artery originates from the left main in the usual fashion. It runs in the anterior interventricular groove giving rise to large size diagonal branch and multiple septal perforators and continues distally to wrap around the apex. stent is patent however it is deformed proximally. severe mid disease 80%, distal LAD 70%. Left circumflex artery is dominant originates from the bifurcation in the usual fashion, then courses its way down the lateral atrioventricular groove, giving rise to 2 large-sized OM branches and continues distally as a left PDA .There was 95% stenosis mid LCX RCA originates from the right coronary sinus of Valsalva in the usual fashion, There was good reflux if dye from this vessel into the coronary sinus, there was no ventriculization or dampening of pressure noted. it is non dominant There was 80% lesion mid RCA. CONCLUSION: 1. There significant epicardial coronary artery disease noted. 3 vessel disease including non dominant RCA, severe LCX and mid LAD. 2. Status post successful percutaneous coronary intervention to left circumflex using 3.0 by 26 mm Darinel MORGAN. 3. IFR to the LAD (0.67). Recommendations: Discontinue heparin Continue with aspirin and Brilinta. (Switched to Plavix if Brilinta is not covered). Restart home dose beta-adam Start Crestor and Zetia. Patient did not tolerate statin from before, will obtain vitamin D level. Consider PSCK9 inhibitor as an outpatient. IV diuresis Continue to follow-up the patient on telemetry. Staged PCI to the LAD as an outpatient. Follow-up with cardiology in 1 to 2 weeks.
--- NOTE | 2025-04-02 15:07 | RAD_ITS ---
PROCEDURE: CHEST 1 VIEW (PORTABLE) 04/02/2025 REASON FOR EXAM: Shortness of breath TECHNIQUE: Frontal view of the chest. COMPARISON: Chest x-ray of 03/20/2020 RAD/Chest 1 View (Portable) IMPRESSION: Left thoracic transvenous pacemaker with leads appears unchanged. The cardiomediastinal silhouette is stable, without evidence of cardiomegaly. Lungs are hypoinflated, but no acute pneumonic process is clearly identified. No pleural effusion or pneumothorax is seen. No acute osseous process is evident. Reading Location: [address]
--- NOTE | 2025-04-02 15:07 | RAD_ITS ---
PROCEDURE: CHEST 1 VIEW (PORTABLE) 04/02/2025 REASON FOR EXAM: Shortness of breath TECHNIQUE: Frontal view of the chest. COMPARISON: Chest x-ray of 03/20/2020 RAD/Chest 1 View (Portable) IMPRESSION: Left thoracic transvenous pacemaker with leads appears unchanged. The cardiomediastinal silhouette is stable, without evidence of cardiomegaly. Lungs are hypoinflated, but no acute pneumonic process is clearly identified. No pleural effusion or pneumothorax is seen. No acute osseous process is evident. Reading Location: [address]
[2025-04-02] MEDS: Furosemide 20 MG/2 ML VIAL IV (15:11)
[2025-04-02] MEDS: 0.9% Saline Lock 10 ML Syringe IV ×2 (15:11→15:28)
[2025-04-02] MEDS: Lorazepam 2 MG/ML WCH Syringe 0.25 MG IV (15:28)
[2025-04-02] MEDS: Heparin Injection (Vial) 5,000 UNIT/ML VIAL 5000 UNIT SC (21:10)
[2025-04-03 04:00] VITALS: BP 110/55; PULSE 91; RESP 14; TEMP 36.8; O2SAT 93
[2025-04-03 05:54] VITALS: BMI 33.0
[2025-04-03 06:44] LABS: Hematocrit 42.3 % (37-47); Hemoglobin 13.9 g/dL (12.0-15.0); Immature Granulocytes Count 0.010 X10^3/uL (0.0-0.0); Mean Corp Hgb Conc 32.9 g/dL (32-36); Mean Corpuscular Volume 91.8 fL (81-99); Mean Platelet Vol. 12.8 fl (6.2-12.0); NRBC Flagged by Analyzer 0 % (0-5); Platelet Count 206 K/mm3 (150-450); RBC Distribution Width CV 14.2 % (11.6-14.6); RBC Distribution Width SD 47.4 fl (35.1-43.9); Red Blood Count 4.61 M/mm3 (4.2-5.4); White Blood Count 6.0 K/mm3 (4.4-11.0)
--- NOTE | 2025-04-03 07:07 | PCM.PN.HOSP ---
Reason for Visit Reason for Visit: Diagnoses Non-ST elevation (NSTEMI) myocardial infarction (04/02/25) Atherosclerotic heart disease of [place] coronary artery without angina pectoris (04/02/25) Coronary atherosclerosis due to lipid rich plaque (04/02/25) Heart failure, unspecified (04/02/25) Chest pain, unspecified (04/02/25) Subjective Subjective Patient with no acute events overnight per self and per nursing report. She remains chest pain-free. She does report unfortunately an unwell family member and plans to visit them immediately following her discharge. Discussed discharge postcardiac catheterization recommendations to avoid driving herself and recommended that if she do as a passenger that would be beneficial if she was up and moving at least 1 every 1-2 hours. Strongly encouraged that all medications be taken as prescribed but given patient has a blood pressure home monitoring system recommended that she check her pressure and if her blood pressure systolic was less than 110 to temporarily hold antihypertensive medication and let the cardiology office know so these may be adjusted. Patient denies fevers, chills, nausea, emesis, abdominal pain, chest pain or dyspnea. Objective Data Objective Data Vital Signs: Vital Signs Temp Pulse Resp BP Pulse Ox O2 Del Method O2 Flow Rate 98.2 F 91 14 110/55 L 93 Room Air 2 04/03/25 04:00 04/03/25 04:00 04/03/25 04:00 04/03/25 04:00 04/03/25 04:00 04/03/25 04:00 04/03/25 03:00 Oxygen Flow Rate (L/min) 2 Oxygen Delivery Method Room Air Weight: 205 lb 0.478 oz Body Mass Index (BMI) 33.0 Intake & Output: Intake and Output for Last 24 Hours 04/01/25 04/02/25 04/03/25 23:59 23:59 23:59 Intake Total 1641.3 / 1641.3 Output Total 550 / 750 200 / 200 Balance 1091.3 / 891.3 -200 / -200 Lab / Micro Data 04/03/25 05:38 04/03/25 05:38 Labs: Laboratory Results - last 24 hr 04/02/25 06:16: WBC 7.4, RBC 4.62, Hgb 13.9, Hct 42.6, MCV 92.2, MCH 30.1, MCHC 32.6, RDW Std Deviation 47.4 H, RDW Coeff of Cally 14.1, Plt Count 211, MPV 13.0 H, APTT 35.9, Sodium 137, Potassium 3.9, Chloride 103, Carbon Dioxide 21.2, Anion Gap 13, BUN 12, Creatinine 0.57 L, Estim Creat Clear Calc 115.12, Est GFR (MDRD) Non-Af 103, BUN/Creatinine Ratio 21.7 H, Glucose 253 H, Calcium 9.2, Magnesium 2.0, Triglycerides 316 H, Cholesterol 220 H, LDL Cholesterol, Calc 125, VLDL Cholesterol 63 H, HDL Cholesterol 32 L, Cholesterol/HDL Ratio 6.96, Vitamin D 25-Hydroxy 36.7 04/02/25 11:40: Activated Clotting Time 187 H 04/02/25 11:52: Activated Clotting Time 377 H 04/02/25 14:24: POC Glucose 237 H 04/02/25 17:09: POC Glucose 289 H 04/02/25 21:09: POC Glucose 303 H 04/03/25 05:38: WBC 6.0, RBC 4.61, Hgb 13.9, Hct 42.3, MCV 91.8, MCH 30.2, MCHC 32.9, RDW Std Deviation 47.4 H, RDW Coeff of Cally 14.2, Plt Count 206, MPV 12.8 H, Immature Gran % (Auto) 0.200, Neut % (Auto) 51.4, Lymph % (Auto) 34.3, Jessamine % (Auto) 11.9 H, Eos % (Auto) 1.2, Baso % (Auto) 1.0, Absolute Neuts (auto) 3.1, Absolute Lymphs (auto) 2.04, Nucleated RBC % 0 04/03/25 06:30: POC Glucose 231 H Radiography Diagnostic Testing: Radiology Impression Echocardiogram 04/02/25 00:06 Interpretation Summary Severe global left ventricular systolic dysfunction. The LV ejection fraction is 25 %. Focal on global wall moition ICD or pacer leads identified within the right ventricle. There is evidence of diastolic dysfunction. Moderate pulmonary hypertension. Severely dilated left ventricle. Ordering Physician: Franko Cueto Referring Physician: Nyla Garcia Performed By: Wilbert PATINO RDCS, Lydia and Student Chest X-Ray 04/02/25 15:07 IMPRESSION: Left thoracic transvenous pacemaker with leads appears unchanged. The cardiomediastinal silhouette is stable, without evidence of cardiomegaly. Lungs are hypoinflated, but no acute pneumonic process is clearly identified. No pleural effusion or pneumothorax is seen. No acute osseous process is evident. Reading Location: [address] Rhythm Strip Rhythm Strip: Sinus Tach Rate: 125 Ectopy: PVC(s) Physical Exam Narrative Physical Examination: General: Awake, alert, oriented x 3 and cooperative, seated upright in PCU bed, mildly fatigued, eager for discharge, denies any chest pain. Skin: Normal color, normal turgor, no icterus, no cyanosis except occasional stage ecchymoses. HEENT: AT/NC, EOMI, PERRLA, MMM. Lungs: CTA bilaterally, moderate effort, mild decrease BL bases, no rales, ronchi or wheezing. Heart: Regular rate and rhythm; no gallop, rub audible. Abdomen: Soft, obese, NTTP, ND, normal BS. Extremities: No cyanosis, no clubbing, mild trace distal edema. Neurological: Patient awake, alert, oriented as noted, cognitive function intact; pupils equally reactive to light and accommodation, cranial nerves grossly normal, moving all 4 extremities, no focal deficits, strength preserved. Psychiatric: Affect appears fatigued otherwise normal, no acute evidence of depressive or anxiety feelings. Assessment & Plan Assessment/Plan (1) Acute non-ST elevation myocardial infarction (NSTEMI): PLAN: Plan The patient is a 64 y/o F w/ PMHx: GERD, PAF/Flutter, Obesity, CAD s/p PCI, HTN, HLD, HFrEF, Diabetes mellitus type II poorly controlled who presents to the [facility] ED on 04/01/2025 with history of chest pain/discomfort in addition to dyspnea prompting eventual ED evaluation. #1. Acute chest discomfort and dyspnea secondary to acute NSTEMI w/ CAD s/p prior PCI history with Acute on Chronic Mild HFrEF Exacerbation: Admitted to PCU, status post previous AICD/pacemaker placement with interrogation requested per cardiology, cardiac troponin enzyme trend series elevated but trended downward 152 > 142 > 127 > 132, presentation EKG with sinus tachycardia with frequent PAC/PVC with nonspecific interventricular block and T wave abnormalities, NT-proBNP 1180. Chest x-ray showed cardiomegaly with vascular congestion. Most recently prior ECHO 2017 per [facility] records showed EF 35% w/ repeat 04/02/25 ECHO w/ severe global LV systolic dysfunction, LVEF 25%, focal on global wall motion abnormalities, evidence of ICD/pacer leads, diastolic dysfunction evident, moderate pulmonary hypertension, severely dilated LV. FLP with triglyceride 316, total cholesterol 220, LDL 125, VLDL 63, HDL 32 with Zetia 10 mg initiated. Per discussion with cardiology if cardiac catheterization is concerning and requires intervention patient may need to be initiated on statin therapy of alternate type and potentially even Repatha outpatient at cardiology follow-up. Maintained on heparin drip until cardiac catheterization. Maintained initially on aspirin, metoprolol, losartan. 04/02/25 Zetia added. Given appearance upon presentation patient only bolused x 1 with Lasix 40 mg x 1 in the ED and then transition to home Lasix 20 mg daily dosing. 04/02/25 cardiac catheterization with PCI to the left circumflex and IFR to the LAD. Following patient is maintained on aspirin, Plavix given cost of Brilinta not viable, metoprolol, losartan in addition to low-dose spironolactone per cardiology recommendation. Moderate dose Crestor added as well and discussed at length with patient given this is an alternate statin therapy may be tolerable but if myalgias are recurrent we will continue with Zetia alone. If this is the case may need to consider Repatha outpatient. 04/03/2025 given clinical stability will discharge to home with follow-up outpatient with primary care physician as well as cardiology. Discussed with patient to use her home blood pressure monitoring kit and if systolic less than 110 to temporally hold hypertensive regimen if necessary but notify cardiology office to alter regimen long-term as needed until follow-up. #2. PAF/Flutter: Status post pacemaker/defibrillator placement, continued on metoprolol, digoxin. As noted above #1 Plavix added. #3. Hypertension: Continue home regimen including metoprolol, losartan, Lasix, low-dose spironolactone added per cardiology recommendation, PRN hydralazine. As discussed with patient at discharge she will check her blood pressure and if routinely systolic less than 110 she will hold BP regimen and immediately contact cardiology office to ascertain best course of action with her regimen. Discussed with her that these may need to be changed in the future but will need to ascertain her ongoing trending. #4. Hyperlipidemia: FLP with triglyceride 316, total cholesterol 220, LDL 125, VLDL 63, HDL 32 with 04/02/2025 Zetia 10 mg initiated. Given cardiac catheterization findings #1 moderate dose Crestor added. If unable to tolerate may require Repatha outpatient. #5. Diabetes mellitus type II, poorly controlled with hyperglycemia: Admission glucose 337. Following cardiac catheterization will allow ADA diet, accu checks w/ ISS, most recently 03/18 HgBA1c 11.7%, upon admission placed on Lantus 15 unit daily as well as insulin sliding scale with adjustments as needed. Insulin therapy given significantly elevated A1c continued at discharge with prescription given for new glucose machine as hers is several years old. Also given her significant history as noted recommended follow-up with endocrinology to be closely monitored and regimen adjusted. #6. Obesity: Weight loss and lifestyle changes encouraged. #7. GERD: Will continue patient on PPI. #8. DVT prophylaxis: Heparin chemoprophylaxis only. #9. Code status: Full Code. Charges/Coding Visit Charges Inpatient E&M: 07506 Subs Hosp L2
--- NOTE | 2025-04-03 07:20 | PCM.DC.SUM ---
Providers Date of Admission: 04/02/25 Date of Discharge: 04/03/25 Primary Care Physician: ESTEBAN Castellanos Consultations 04/02/25 03:30 Consult: Cardiology Routine Consulting Provider: Mino Zhang Reason for Consult: NSTEMI, eval for [facility] Consult: No MD Notified: Yes Date Notified: 04/02/25 Time Notified: 08: Method of Notification: Text Reason For Visit: NSTEMI Diagnosis Discharge Diagnosis (1) Acute non-ST elevation myocardial infarction (NSTEMI): Status: Acute Code(s): I21.4 - Non-ST elevation (NSTEMI) myocardial infarction Plan: DISCHARGE DIAGNOSES: #1. Acute chest discomfort and dyspnea secondary to acute NSTEMI w/ CAD s/p prior PCI history with Acute on Chronic Mild HFrEF Exacerbation with DURING ADMISSION PCI to the left circumflex and IFR to the LAD #2. PAF/Flutter status post pacemaker/defibrillator placement #3. Hypertension #4. Hyperlipidemia #5. Diabetes mellitus type II, poorly controlled with hyperglycemia #6. Obesity #7. GERD Medications at Discharge Home Medications blood sugar diagnostic (Playrcartuch Ultra Test strips) #100 ea 12/21/23 lancets 30 gauge (E-Z Ject Lancets) #100 ea 12/21/23 digoxin 125 mcg (0.125 mg) tablet 125 mcg PO DAILY heart #30 tabs 03/20/25 glimepiride 4 mg tablet 4 mg PO QAM diabetes #30 tabs 03/20/25 losartan 50 mg tablet 50 mg PO DAILY bp #30 tabs 03/20/25 metformin 850 mg tablet 850 mg PO BID diabetes #60 tabs 03/20/25 metoprolol succinate 100 mg tablet,extended release 24 hr 100 mg PO DAILY heart #30 tabs 03/20/25 nitroglycerin 0.4 mg sublingual tablet 0.4 mg sublingual Q5-15M PRN chest pain #30 tabs 03/20/25 omeprazole 40 mg capsule,delayed release 40 mg PO DAILY PRN GERD #30 caps 03/20/25 semaglutide 0.25 mg or 0.5 mg (2 mg/3 mL) subcutaneous pen injector (Ozempic) 0.5 mg (0.736 mL) subcut QWEEK diabetes #3 mL 03/20/25 aspirin 81 mg chewable tablet 81 mg PO BREAKFAST 30 days #30 tabs 04/02/25 cholecalciferol (vitamin D3) 10 mcg (400 unit) capsule (Vitamin D3) 10 mcg PO DAILY 30 days #30 caps 04/02/25 clopidogrel 75 mg tablet (Plavix) 75 mg PO DAILY 30 days #30 tabs 04/02/25 ezetimibe 10 mg tablet 10 mg PO DAILY 30 days #30 tabs 04/02/25 furosemide 20 mg tablet 20 mg PO DAILY Swelling #30 tabs 04/02/25 insulin glargine-yfgn 100 unit/mL (3 mL) subcutaneous pen 15 unit (0.15 mL) subcut QHS 30 days #4.5 mL 04/02/25 insulin lispro 100 unit/mL subcutaneous pen (Humalog KwikPen (U-100) Insulin) See Protocol subcut ACHS #15 mL 04/02/25 rosuvastatin 20 mg tablet (Crestor) 20 mg PO DAILY 30 days #30 tabs 04/02/25 spironolactone 25 mg tablet 12.5 mg (1/2 x 25 mg) PO DAILY 30 days #15 tabs 04/02/25 Hospital Course Operations None Procedures 2-D Echocardiogram, Cardiac catheterization and EKG Summary of Care Provided Hospital Course: The patient is a 64 y/o F w/ PMHx: GERD, PAF/Flutter, Obesity, CAD s/p PCI, HTN, HLD, HFrEF, Diabetes mellitus type II poorly controlled who presented to the [facility] ED on 04/01/2025 with history of chest pain/discomfort in addition to dyspnea prompting eventual ED evaluation. Patient was admitted to PCU, status post previous AICD/pacemaker placement with interrogation requested per cardiology, cardiac troponin enzyme trend series elevated but trended downward 152 > 142 > 127 > 132, presentation EKG with sinus tachycardia with frequent PAC/PVC with nonspecific interventricular block and T wave abnormalities, NT-proBNP 1180. Chest x-ray showed cardiomegaly with vascular congestion. Most recently prior ECHO 2016 per [facility] records showed EF 35% w/ repeat 04/02/25 ECHO w/ severe global LV systolic dysfunction, LVEF 25%, focal on global wall motion abnormalities, evidence of ICD/pacer leads, diastolic dysfunction evident, moderate pulmonary hypertension, severely dilated LV. FLP with triglyceride 316, total cholesterol 220, LDL 125, VLDL 63, HDL 32 with Zetia 10 mg initiated. Per discussion with cardiology if cardiac catheterization is concerning and requires intervention patient may need to be initiated on statin therapy of alternate type and potentially even Repatha outpatient at cardiology follow-up. Maintained on heparin drip until cardiac catheterization. Maintained initially on aspirin, metoprolol, losartan. 04/02/25 Zetia added. Given appearance upon presentation patient only bolused x 1 with Lasix 40 mg x 1 in the ED and then transition to home Lasix 20 mg daily dosing. 04/02/25 cardiac catheterization with PCI to the left circumflex and IFR to the LAD. Following patient is maintained on aspirin, Plavix given cost of Brilinta not viable, metoprolol, losartan in addition to low-dose spironolactone per cardiology recommendation. Moderate dose Crestor added as well and discussed at length with patient given this is an alternate statin therapy may be tolerable but if myalgias are recurrent we will continue with Zetia alone. If this is the case may need to consider Repatha outpatient. 04/03/2025 given patient clinically improved quicker than expected with notable clinical stability and clearance per cardiology patient discharged to home with follow-up with primary care physician and bike designer. Additionally at discharge, discussed with patient to use her home blood pressure monitoring kit and if systolic less than 110 to temporally hold hypertensive regimen if necessary but notify cardiology office to alter regimen long-term as needed until follow-up. During admission patient with notable hyperglycemia, recent hemoglobin A1c 11.7% and given significant elevated blood sugars placed on Lantus 15 units subcu daily as well as sliding scale which was continued at discharge with recommendation for outpatient follow-up with endocrinology with referral made. Weight / BMI Weight Weight: 205 lb 0.478 oz Body Mass Index (BMI) 33.0 ABG / Lab / Microbiology Data 04/03/25 05:38 04/03/25 05:38 Laboratory: Laboratory Results - last 24 hr 04/02/25 14:24: POC Glucose 237 H 04/02/25 17:09: POC Glucose 289 H 04/02/25 21:09: POC Glucose 303 H 04/03/25 05:38: WBC 6.0, RBC 4.61, Hgb 13.9, Hct 42.3, MCV 91.8, MCH 30.2, MCHC 32.9, RDW Std Deviation 47.4 H, RDW Coeff of Cally 14.2, Plt Count 206, MPV 12.8 H, Immature Gran % (Auto) 0.200, Neut % (Auto) 51.4, Lymph % (Auto) 34.3, [place] % (Auto) 11.9 H, Eos % (Auto) 1.2, Baso % (Auto) 1.0, Absolute Neuts (auto) 3.1, Absolute Lymphs (auto) 2.04, Nucleated RBC % 0, Sodium 137, Potassium 3.8, Chloride 103, Carbon Dioxide 22.5, Anion Gap 12, BUN 13, Creatinine 0.54 L, Estim Creat Clear Calc 124.11, Est GFR (MDRD) Non-Af 104, BUN/Creatinine Ratio 25.0 H, Glucose 250 H, Calcium 9.1, Phosphorus 4.2, Magnesium 2.0, Total Bilirubin 0.59, AST 26, ALT 57 H, Alkaline Phosphatase 127 H, Total Protein 6.4, Albumin 3.8, Globulin 2.6, Albumin/Globulin Ratio 1.5, Triglycerides 335 H, Cholesterol 218 H, LDL Cholesterol, Calc 123, VLDL Cholesterol 67 H, HDL Cholesterol 28 L, Cholesterol/HDL Ratio 7.87 04/03/25 06:30: POC Glucose 231 H Radiography Diagnostic Testing: Radiology Impression Chest X-Ray 04/02/25 15:07 IMPRESSION: Left thoracic transvenous pacemaker with leads appears unchanged. The cardiomediastinal silhouette is stable, without evidence of cardiomegaly. Lungs are hypoinflated, but no acute pneumonic process is clearly identified. No pleural effusion or pneumothorax is seen. No acute osseous process is evident. Reading Location: [id number] D/C Instructions Discharge Diet: Low fat / Low cholesterol and 1800 Calorie Control Diet May resume sexual activity in: - (Defer until re-evaluation per Cardiology at follow-up.) Weight Bearing Status: Weight bearing as tolerated Call your doctor if your incision/area has: Continuous Slow Oozing, Sudden Increased Bleeding, Increased Pain/ Swelling, Increased Redness, Foul Smelling Discharge and Swelling at the incision site Call your doctor if you observe: Fever of 101 or Higher, Shortness of breath, Dizziness, Swelling in the ankles, Chest pain, Increased palpitations (irregular heartbeat), Calf discomfort and Uncontrolled pain DC O2, CPAP, BIPAP Needs Home O2 Discharge instructions: No Meaningful Use Info Meaningful Use Meaningful Use Diagnoses (Choose all that apply): CHF CHF BHAVIN/ARB ordered at discharge?: Yes Documented LVEF (%): 25 Discharge Plan Admission Admit Date/Time: 04/02/25 00:02 Primary Reason for Your Visit: NSTEMI w/ CAD w/ stenoses requiring PCI intervention, HFrEF Exacerbation Attending Provider: Amaris Gomez Primary Care Provider: Nyla Garcia NP Consulting Providers: Franko Cueto; Mino Zhang Instructions Patient Instructions: Heart Failure Meds, Heart Failure Flare Up Signs, Coping with Heart Failure, Heart Failure Dc, PCI Blood Thinners, PCI Follow Up, PCI Lifestyle Changes Additional Instructions / Restrictions: ADDITIONAL DISCHARGE INSTRUCTIONS/FOLLOW-UP: Acute NSTEMI (heart attack) w/ CAD s/p prior PCI history requiring PCI intervention during admission with Acute on Chronic Mild HFrEF Exacerbation: --Cardiac troponin enzyme trend series elevated but trended downward 152 > 142 > 127 > 132. --ED presentation EKG with sinus tachycardia with frequent PAC/PVC with nonspecific interventricular block and T wave abnormalities. --NT-proBNP 1180. --ED Chest x-ray showed cardiomegaly with vascular congestion. --FLP with triglyceride 316, total cholesterol 220, LDL 125, VLDL 63, HDL 32 --04/02/25 ECHO w/ Severe global LV systolic dysfunction, LVEF 25%, focal and global wall motion abnormality, evidence diastolic dysfunction, moderate pulmonary hypertension, severely dilated LV with most recent records prior to this from clinic seeing with an echocardiogram in 2017 with EF 35% at that time. --04/02/25 Cardiac catheterization with significantly stenosed circumflex with MORGAN/PCI performed with also stenosis in the LAD; however, not able to perform PCI secondary to radial approach with plan for medical management. --Per cardiology direction you have been initiated on continue baby aspirin, Plavix Zetia, mid dose Crestor which although it is a statin therapy can often have less side effects than others with preference for at least a trial per cardiology, low-dose spironolactone in addition to continued home dosing of metoprolol and losartan. Given the addition of spironolactone please have follow-up blood pressure check with primary care physician and if your systolic blood pressure is less than 110 preferentially hold temporarily the spironolactone until follow-up with cardiology but please notify their office of these results when it occurs. --Please have repeat basic metabolic panel at follow-up with your primary care physician. --Please perform daily weight checks using the same machine and if your weight increases by > 5 lbs please notify your cardiology office immediately to review possible diuretic change options. Diabetes mellitus type II, poorly controlled with hyperglycemia: --During the admission you had notably elevated blood sugars with poorly controlled underlying diabetes with recent hemoglobin A1c noted to be 11.7%. At this time during admission you had significantly elevated blood sugars therefore we recommend you continue the oral diabetic regimen but at the same time given the levels and your presentation with worsening coronary disease requiring percutaneous intervention you have been initiated on once daily long-acting in addition to recommended insulin sliding scale. We strongly encourage continued diet and lifestyle changes in addition to these medication changes. We have referred you also to endocrinology. CARDIOLOGY PCI POST-CATHETERIZATION INSTRUCTIONS: Lifting: Must be less than 5 lbs for 5 days, No restrictions after 14 days Shower: Yes Climb stairs: Yes Bathing in tub or submerged water: No, until cleared per Cardiology at follow-up (call office if any concerns [phone] and may leave voicemail if after hours). Walkin minutes 3 times daily, increase as tolerated. Driving: Resume in 7 days Sexual activity: Resume in 14 days Regular activity: Resume 14 days ADDITIONAL: --Your vitamin D level was low end normal range. We have started you on a daily oral vitamin D supplement. Please have repeat levels outpatient. Discharge Orders/Prescriptions Prescriptions: New aspirin 81 mg Tablet,Chewable 81 mg PO BREAKFAST 30 Days Qty: 30 0RF ezetimibe 10 mg Tablet 10 mg PO DAILY 30 Days Qty: 30 0RF insulin glargine-yfgn 100 unit/mL (3 mL) Insulin Pen 15 unit subcut QHS 30 Days Qty: 4.5 0RF Rx Instructions: Please provide enough for 1 month supply. insulin lispro [Humalog KwikPen Insulin] 100 unit/mL Insulin Pen See Protocol subcut ACHS Qty: 15 0RF Protocol: 4. Sliding Scale Insulin High-Med Dosing Condition: 150-199 mg/dl = 2 units Condition: 200-259 mg/dl = 4 units Condition: 260-324 mg/dl = 6 units Condition: 325-374 mg/dl = 8 units Condition: 375-409 mg/dl = 10 units Condition: 410-449 mg/dl = 11 units Condition: Greater than 449 call physician Protocol Text: Suggested for: - Patients on Total Daily Insulin Dose of 56-80 units - Patient who are known to be insulin resistant or septic HIGH MEDIUM DOSING ALGORITHM Rx Instructions: Please provide enough for 1 month supply. spironolactone 25 mg tablet 12.5 mg PO DAILY 30 Days Qty: 15 0RF Rx Instructions: Hold for SBP < 110 rosuvastatin [Crestor] 20 mg tablet 20 mg PO DAILY 30 Days Qty: 30 0RF cholecalciferol (vitamin D3) [Vitamin D3] 10 mcg (400 unit) capsule 10 mcg PO DAILY 30 Days Qty: 30 0RF clopidogrel [Plavix] 75 mg tablet 75 mg PO DAILY 30 Days Qty: 30 0RF Continued (DME) OneTouch Ultra Test Strip See Rx Instructions .Route Qty: 100 12RF Rx Instructions: As directed (DME) lancets [E-Z Ject Lancets] 30 gauge misc See Rx Instructions .Route Qty: 100 3RF Rx Instructions: As directed digoxin 125 mcg (0.125 mg) tablet 125 mcg PO DAILY Qty: 30 12RF glimepiride 4 mg tablet 4 mg PO QAM Qty: 30 12RF Rx Instructions: administer with breakfast losartan 50 mg tablet 50 mg PO DAILY Qty: 30 12RF metformin 850 mg tablet 850 mg PO BID Qty: 60 12RF metoprolol succinate 100 mg tablet extended release 24 hr 100 mg PO DAILY Qty: 30 12RF nitroglycerin 0.4 mg tablet, sublingual 0.4 mg SUBLINGUAL Q5-15M PRN (Reason: chest pain) Qty: 30 12RF Rx Instructions: until response; do not exceed 3 doses per episode omeprazole 40 mg capsule,delayed release(DR/EC) 40 mg PO DAILY PRN (Reason: GERD) Qty: 30 12RF Ozempic 0.25 mg or 0.5 mg (2 mg/3 mL) pen injector 0.5 mg subcut QWEEK Qty: 3 6RF Changed furosemide 20 mg tablet 20 mg PO DAILY Qty: 30 12RF Referrals / Follow Up: Stepan Ventura MD [Med Staff - Courtesy Staff] - (Please follow-up to establish with Endocrinology, may see ADMINISTRATIVE ACCOUNTANT.) Nyla Garcia NP, ADMINISTRATIVE ACCOUNTANT-C [Primary Care Provider] - (Follow-up within 3-5 days to review admission. Repeat BP check given new medications. Repeat basic metabolic panel at follow-up.) oJjo Parker, PA [Med Staff - Adv Practice Prof] - (Please follow-up in 1-2 weeks for re-evaluation following recent PCI admission.) Disposition Disposition (needs filled in before D/C Order can be placed): Home, Self Care Charges/Coding Visit Charges Inpatient E&M: 48139 Disch Hosp >30min
[2025-04-03 07:24] LABS: AST(SGOT) 26 U/L (<=31); Alanine Aminotransfer ALT/SGPT 57 U/L (<=34); Albumin, Serum 3.8 g/dL (3.4-4.8); Alkaline Phosphatase 127 U/L (35-104); Anion Gap 12 (5-15); BUN 13 mg/dL (4-19); BUN/Creat Ratio 25.0 RATIO (10-20); Calcium,Total 9.1 mg/dL (7.6-11.0); Carbon Dioxide 22.5 mmol/L (21.0-32.0); Chloride 103 mmol/L (98-108); Estimated Creatinine Clearance 124.11 ml/min (50-250); Globulin 2.6 g/dL (2.2-4.2); Glucose 250 mg/dL (70-99); Potassium 3.8 mmol/L (3.3-5.1)
[2025-04-03 07:43] LABS: Magnesium 2.0 mg/dL (1.5-2.2)
[2025-04-03 07:45] VITALS: O2SAT 97
[2025-04-03 08:36] VITALS: BP 107/66; PULSE 91; RESP 18; TEMP 36.4; O2SAT 96
[2025-04-03] MEDS: Heparin Injection (Vial) 5,000 UNIT/ML VIAL 5000 UNIT SC (08:41)
[2025-04-03 08:42] VITALS: PULSE 88
[2025-04-03 09:21] LABS: Cholesterol 218 mg/dL (<=200); Low Density Lipoprotein Calc. 123 mg/dL; Triglycerides 335 mg/dL; Very Low Density Lipoprotein 67 mg/dL (5-40); cholesterol:hdl ratio screen 7.87
--- NOTE | 2025-04-03 09:39 | PN.CARD_ITS ---
Subjective Subjective She is doing well she denies any chest pain or shortness of breath . Radial access site with no hematoma. Objective Data Vital Signs: Vital Signs Temp Pulse Resp BP Pulse Ox O2 Del Method O2 Flow Rate 97.6 F L 88 18 107/66 96 Room Air 2 04/03/25 08:36 04/03/25 08:42 04/03/25 08:36 04/03/25 08:36 04/03/25 08:36 04/03/25 08:36 04/03/25 03:00 Oxygen Flow Rate (L/min) 2 Oxygen Delivery Method Room Air Weight: 205 lb 0.478 oz Body Mass Index (BMI) 33.0 Intake & Output: Intake and Output for Last 24 Hours 04/01/25 04/02/25 04/03/25 23:59 23:59 23:59 Intake Total 1641.3 / 1641.3 Output Total 550 / 750 200 / 200 Balance 1091.3 / 891.3 -200 / -200 Lab / Micro Data 04/03/25 05:38 04/03/25 05:38 Labs: Laboratory Results - last 24 hr 04/02/25 06:16: Vitamin D 25-Hydroxy 36.7 04/02/25 11:40: Activated Clotting Time 187 H 04/02/25 11:52: Activated Clotting Time 377 H 04/02/25 14:24: POC Glucose 237 H 04/02/25 17:09: POC Glucose 289 H 04/02/25 21:09: POC Glucose 303 H 04/03/25 05:38: WBC 6.0, RBC 4.61, Hgb 13.9, Hct 42.3, MCV 91.8, MCH 30.2, MCHC 32.9, RDW Std Deviation 47.4 H, RDW Coeff of Cally 14.2, Plt Count 206, MPV 12.8 H , Immature Gran % (Auto) 0.200, Neut % (Auto) 51.4, Lymph % (Auto) 34.3, [place] % (Auto) 11.9 H, Eos % (Auto) 1.2, Baso % (Auto) 1.0, Absolute Neuts (auto) 3.1, Absolute Lymphs (auto) 2.04, Nucleated RBC % 0, Sodium 137, Potassium 3.8, Chloride 103, Carbon Dioxide 22.5, Anion Gap 12, BUN 13, Creatinine 0.54 L, Estim Creat Clear Calc 124.11, Est GFR (MDRD) Non-Af 104, BUN/Creatinine Ratio 25.0 H, Glucose 250 H, Calcium 9.1, Phosphorus 4.2, Magnesium 2.0, Total Bilirubin 0.59, AST 26, ALT 57 H, Alkaline Phosphatase 127 H, Total Protein 6.4, Albumin 3.8, Globulin 2.6, Albumin/Globulin Ratio 1.5, Triglycerides 335 H, C holesterol 218 H, LDL Cholesterol, Calc 123, VLDL Cholesterol 67 H, HDL Cholesterol 28 L, Cholesterol/HDL Ratio 7.87 04/03/25 06:30: POC Glucose 231 H Rhythm Strip Rhythm Strip: Sinus Tach Rate: 125 Ectopy: PVC(s) Cardiology Labs/Tests 04/03/25 05:38: WBC 6.0, RBC 4.61, Hgb 13.9, Hct 42.3, MCV 91.8, MCH 30.2, MCHC 32.9, Plt Count 206, MPV 12.8 H, Immature Gran % (Auto) 0.200, Neut % (Auto) 51.4, Lymph % (Auto) 34.3, [place] % (Auto) 11.9 H, Eos % (Auto) 1.2, Baso % (Auto) 1.0, Absolute Neuts (auto) 3.1, Nucleated RBC % 0, Sodium 137, Potassium 3.8, Chloride 103, Carbon Dioxide 22.5, Anion Gap 12, BUN 13, Creatinine 0.54 L, Est GFR (MDRD) Non-Af 104, BUN/Creatinine Ratio 25.0 H, Glucose 250 H, Calcium 9.1, Phosphorus 4.2, Magnesium 2.0, Total Bilirubin 0.59, Triglycerides 335 H, C holesterol 218 H, VLDL Cholesterol 67 H, HDL Cholesterol 28 L, Cholesterol/HDL Ratio 7.87 Rhythm: EKG: ECHO: Stress Test: Cardiac Cath: PCI: CT Surgery: Holter monitor: EPS: PPM: CXR: Chest CT Scan: Radiography Diagnostic Testing: Radiology Impression Echocardiogram 04/02/25 00:06 Interpretation Summary Severe global left ventricular systolic dysfunction. The LV ejection fraction is 25 %. Focal on global wall moition ICD or pacer leads identified within the right ventricle. There is evidence of diastolic dysfunction. Moderate pulmonary hypertension. Severely dilated left ventricle. Ordering Physician: Franko Cueto Referring Physician: Nyla Garcia Performed By: Wilbert PATINO RDCS, Lydia and Student Chest X-Ray 04/02/25 15:07 IMPRESSION: Left thoracic transvenous pacemaker with leads appears unchanged. The cardiomediastinal silhouette is stable, without evidence of cardiomegaly. Lungs are hypoinflated, but no acute pneumonic process is clearly identified. No pleural effusion or pneumothorax is seen. No acute osseous process is evident. Reading Location: [address] Physical Exam Const alert HEENT normocephalic Eyes PERRL Neck full ROM Resp normal respiratory effort Cardio S1 normal heart sound no CVA tenderness Extremity normal to inspection Assessment & Plan Assessment/Plan (1) Acute non-ST elevation myocardial infarction (NSTEMI): PLAN: Status post PCI to left circumflex. Continue with aspirin and Plavix [she had shortness of breath while she is on Brilinta and insurance did not cover it] Continue with Zetia and Crestor. If she continues to have cramps as an outpatient to be started on PCSK9 (2) HFrEF (heart failure with reduced ejection fraction): PLAN: Compensated NYHA class III stage C Status post BiV ICD in 2012 Continue with losartan, metoprolol succinate, spironolactone. Start SGLT2 inhibitor as an outpatient.
--- NOTE | 2025-04-03 11:00 | CASEMGMT ---
GABBIE PALACIOS NOTE: Discharge order is in. Rx's have been e-scribed to [facility] in [place], including insulin, which is new for pt. Bloom check on new Rx's: ~ $70. Pt and made aware and state is affordable. [place], has done insulin admin education and pt and state they feel comfortable w/doing this @ home. They are aware to f/u with PCP in 3-5 days and that BMP is to be drawn. Further questions answered. Pt states the glucometer she has is ~ 10 yrs old and they paid for it [id number]. She would like to get a new one. Script for same w/testing supplies obtained from Dr Gomez and provided to pt and . Instructed on use. Script for insulin pen needles also provided to pt & . Pt and deny having other discharge needs or concerns. Ashwin BRAVO RN CM
--- NOTE | 2025-04-03 11:00 | CASEMGMT ---
GABBIE PALACIOS NOTE: Discharge order is in. Rx's have been e-scribed to [facility] in [place], including insulin, which is new for pt. Bloom check on new Rx's: ~ $70. Pt and made aware and state is affordable. [place], has done insulin admin education and pt and state they feel comfortable w/doing this @ home. They are aware to f/u with PCP in 3-5 days and that BMP is to be drawn. Further questions answered. Pt states the glucometer she has is ~ 10 yrs old and they paid for it [id number]. She would like to get a new one. Script for same w/testing supplies obtained from Dr Gomez and provided to pt and . Instructed on use. Script for insulin pen needles also provided to pt & . Pt and deny having other discharge needs or concerns. Ashwin BRAVO RN CM
== END 2025-04-03 12:09 | disposition home or self-care (01) | DRG 321 ==
LOC: ED 20:58 → PCU 04-02 01:06
PROVIDERS: Admitting Provider Hospitalist; Emergency Provider Emergency Medicine; PCP Nurse Practitioner; Visit Provider Family Medicine
DX: I21.4 Non-ST elevation (NSTEMI) myocardial infarction (principal); I50.23 Acute on chronic systolic (congestive) heart failure; I11.0 Hypertensive heart disease with heart failure; E11.65 Type 2 diabetes mellitus with hyperglycemia; E66.811 Obesity, class 1; E11.40 Type 2 diabetes mellitus with diabetic neuropathy, unspecified; I48.0 Paroxysmal atrial fibrillation; I25.10 Atherosclerotic heart disease of native coronary artery without angina pectoris; K21.9 Gastro-esophageal reflux disease without esophagitis; E78.5 Hyperlipidemia, unspecified; Z79.4 Long term (current) use of insulin; E55.9 Vitamin D deficiency, unspecified; I25.2 Old myocardial infarction; Z68.31 Body mass index [BMI] 31.0-31.9, adult; Z95.0 Presence of cardiac pacemaker; Z95.5 Presence of coronary angioplasty implant and graft; Z95.810 Presence of automatic (implantable) cardiac defibrillator; Z79.02 Long term (current) use of antithrombotics/antiplatelets; Z79.82 Long term (current) use of aspirin; Z79.84 Long term (current) use of oral hypoglycemic drugs; Z79.85 Long-term (current) use of injectable non-insulin antidiabetic drugs; Z79.899 Other long term (current) drug therapy
CPT/HCPCS: 36415; 71045; 80048; 80053; 80061; 80076; 80162; 82306; 82803; 82962; 83690; 83735; 83880; 84100; 84484; 85025; 85027; 85347; 85379; 85610; 85730; 92928; 93005; 93306; 93458; 93571; 99152; 99153; 99285; Q9957; Q9967; A4216; C1725; C1769; C1874; C1887; C1894; C8929; C9600; J1938

== ENCOUNTER 2025-04-21 13:44 | Observation (INO) | payer OTHER, SELFPAY ==
[2025-04-21] VITALS (15 sets, daily range): BP systolic 107–145; BP diastolic 53–83; PULSE 80–119; RESP 18–31; TEMP 36.4–36.9; O2SAT 88–96; BMI 33.2; BMI 33.5
--- NOTE | 2025-04-21 14:06 | EKG12_ITS ---
Test Reason : CP Blood Pressure : */* mmHG Vent. Rate : 114 BPM Atrial Rate : 114 BPM P-R Int : 116 ms QRS Dur : 130 ms QT Int : 386 ms P-R-T Axes : 71 -55 110 degrees QTcB Int : 532 ms Atrial-sensed ventricular-paced rhythm Abnormal ECG Confirmed by CJ MACDONALD, IMANI ([id number]), television news video editor CONNIE HOOKER ([id number]) on 04/22/2025 8:37:09 AM Referred By: TIMBO/RU Confirmed By: IMANI CORONA MD
--- NOTE | 2025-04-21 14:08 | EDS_ITS ---
HPI History of Present Illness Chief Complaint: Chest Pain Informant: patient Narrative Narrative: Patient 64-year-old female with history of coronary artery disease (status post stent states she is scheduled for second stent to be placed on April 29), biventricular ICD, heart failure with reduced ejection fraction, diabetes mellitus and atrial fibrillation (is not on oral anticoagulation) presenting with sudden onset of chest tightness, shortness of breath and cough. Patient states she actually was feeling well today. Overall she is been feeling much better since she had a stent placed 2 weeks ago. She states she has to have a second stent because they could not reach the spot through her right wrist initially. She states that last night she did notice when she checked her blood pressure and heart rate (has been doing this regularly) her blood pressure is little up but her heart rate was 109. This afternoon prior to arrival she got into a verbal argument with her neighbor. She then started to have pressure in the center of her chest and felt short of breath. She started coughing up mucus and foam that was pink-colored. She came in for further evaluation. States she is never had this happen to her before as far as the coughing and shortness of breath. She states the chest pressure/discomfort felt like the last time she got a stent. She denies any recent fevers, leg swelling, change in urine output or other complaints. She knows she has been sleeping well at night. Cardiology note from 04/13/2025 reviewed?patient cardiac catheterization on 04/02 which had 95% stenosis of the mid left circumflex, 80% stenosis of her mid right coronary artery and 80% stenosis of her mid LAD as well as 70% stenosis of her distal LAD. She had successful PCI to the left circumflex and IFR to the LAD. Will need staged PCI to the LAD. EF 25%. [facility] Medical History Acute non-ST elevation myocardial infarction (NSTEMI) CAD (coronary artery disease) Congestive heart failure Arteriosclerosis of coronary artery Biventricular automatic implantable cardioverter defibrillator in situ ESBL (extended spectrum beta-lactamase) producing bacteria infection Neuropathy Myocardial infarct GERD (gastroesophageal reflux disease) Diabetes type 2, uncontrolled Hypertension Pacemaker Cardiac defibrillator in place Home Medications ?Medication ?Instructions ?Recorded ?Last Taken ?Type blood sugar diagnostic (OneTouch #100 ea 12/21/23 Unkn own Rx Ultra Test strips) lancets 30 gauge (E-Z Ject Lancets) #100 ea 12/21/23 U nknown Rx digoxin 125 mcg (0.125 mg) tablet 125 mcg PO DAILY hea rt #30 tabs 03/20/25 04/21/25 Rx losartan 50 mg tablet 50 mg PO DAILY bp #30 tabs 0 03/20/25 04/21/25 Rx metformin 850 mg tablet 850 mg PO BID diabetes #60 t abs 03/20/25 04/21/25 Rx metoprolol succinate 100 mg 100 mg PO DAILY heart #30 tabs 03/20/25 04/21/25 Rx tablet,extended release 24 hr nitroglycerin 0.4 mg sublingual 0.4 mg sublingual Q5-1 5M PRN chest 03/20/25 Unknown Rx tablet pain #30 tabs omeprazole 40 mg capsule,delayed 40 mg PO DAILY PRN GE RD #30 caps 03/20/25 04/01/25 09:00 Rx release aspirin 81 mg chewable tablet 81 mg PO BREAKFAST 30 da ys #30 tabs 04/02/25 04/21/25 Rx ezetimibe 10 mg tablet 10 mg PO DAILY 30 days #30 t abs 04/02/25 04/21/25 Rx furosemide 20 mg tablet 20 mg PO DAILY Swelling #30 tabs 04/02/25 04/21/25 Rx insulin glargine-yfgn 100 unit/mL 15 unit (0.15 mL) landrum bcut QHS 30 04/02/25 04/20/25 Rx (3 mL) subcutaneous pen days #4.5 mL insulin lispro 100 unit/mL See Protocol subcut ACHS #1 5 mL 04/02/25 04/21/25 Rx subcutaneous pen (Humalog KwikPen (U-100) Insulin) rosuvastatin 20 mg tablet (Crestor) 20 mg PO DAILY 30 days #30 tabs 04/02/25 04/20/25 Rx spironolactone 25 mg tablet 12.5 mg (1/2 x 25 mg) PO D AILY 30 04/02/25 04/21/25 Rx days #15 tabs cholecalciferol (vitamin D3) 10 10 mcg PO DAILY 30 day s #30 caps 04/13/25 04/21/25 Rx mcg (400 unit) capsule (Vitamin D3) clopidogrel 75 mg tablet (Plavix) 75 mg PO QDAY #94 ta bs 04/13/25 04/21/25 Rx glucosamine 750 fr-[id number] 2 tab PO DAILY 03/2504/21/25 History no1 644 mg-C 30 mg-mar 1 mg tablet (Osteo Bi-Flex Triple Strength) Allergy/AdvReac Type Severity Reaction Status Date / Time sitagliptin ([facility]) Allergy Severe Rash Verified 04/21/25 13:49 Poeecxv-HPX-ViV Reductase Allergy Intermediate cramps Verified 04/21/25 13:49 Inhibitor (Fysefzl-Mqw-Pvj Reductase Inhibitor) dapagliflozin (From [facility]) AdvReac Severe yeast Verified 04/21/25 13:49 Family History Sister Breast cancer Diabetes Thyroid disorder Mother CVA (cerebral vascular accident) Diabetes Heart disease Myocardial infarction Father Heart disease Myocardial infarction Other Acute non-ST elevation myocardial infarction (NSTEMI) CAD (coronary artery disease) Surgical History Stented coronary artery (04/03/25) H/O tubal ligation H/O heart artery stent Social History Smoking Status: Former smoker ROS ROS ED Constitutional Constitutional ED: Denies chills, fever(s) or sweats ENT ENT ED: Denies rhinorrhea or sore throat Cardiovascular Cardiovascular: Reports as per HPI and chest pain; Denies palpitations or racing heartbeat Respiratory/Chest Respiratory/Chest: Reports cough, dyspnea and sputum Gastrointestinal Gastrointestinal: Denies abdominal pain, nausea or vomiting Musculoskeletal Musculoskeletal: Denies arthralgias or myalgias Integumentary Denies rash Neurologic Neurologic: Denies weakness Psychiatric Psychiatric: Denies anxiety or depression Hematologic/Lymphatic Hematologic/Lymphatic: Denies easy bleeding or easy bruising EXAM Physical Exam Const Vital Signs: 04/21/25 13:45 04/21/25 13:48 04/21/25 13:52 Temperature 98.4 F 98.4 F Temperature Source Oral Oral Pulse Rate 119 H 118 H Respiratory Rate 31 H 31 H Respiratory Effort Short of Breath Blood Pressure 137/75 H 137/75 H Blood Pressure Mean 95 95 Pulse Ox 88 88 Oxygen Delivery Method Room Air Room Air Oxygen Flow Rate (L/min) 04/21/25 14:03 04/21/25 14:03 04/21/25 14:09 Temperature Temperature Source Pulse Rate Respiratory Rate 22 H Respiratory Effort Blood Pressure Blood Pressure Mean Pulse Ox 90 90 93 Oxygen Delivery Method Nasal Cannula Nasal Cannula Nasal Cannula Oxygen Flow Rate (L/min) 2 4 4 04/21/25 14:16 04/21/25 14:33 04/21/25 14:48 Temperature 97.7 F L Temperature Source Oral Pulse Rate 112 H 119 H 110 H Respiratory Rate 23 H Respiratory Effort Blood Pressure 145/81 H 121/66 H 141/83 H Blood Pressure Mean 102 Pulse Ox 95 Oxygen Delivery Method Nasal Cannula Oxygen Flow Rate (L/min) 2 04/21/25 16:00 04/21/25 16:35 04/21/25 17:00 Temperature 97.7 F L 97.8 F Temperature Source Oral Oral Pulse Rate 94 80 100 Respiratory Rate 18 18 25 H Respiratory Effort Blood Pressure 117/78 122/63 H 107/53 L Blood Pressure Mean 91 82 71 Pulse Ox 95 93 93 Oxygen Delivery Method Nasal Cannula Room Air Room Air Oxygen Flow Rate (L/min) 2 04/21/25 17:56 Temperature 97.9 F Temperature Source Pulse Rate 103 H Respiratory Rate 25 H Respiratory Effort Blood Pressure 114/80 Blood Pressure Mean 91 Pulse Ox 96 Oxygen Delivery Method Oxygen Flow Rate (L/min) Positive well nourished and well developed General Appearance ED: well developed and NAD HEENT Reports moist mucous membranes Eyes PERRL and EOMs intact bilaterally Neck supple and no JVD Chest Wall inspection of chest normal and palpation of chest normal Resp normal respiratory effort Resp Narrative: Basilar crackles present Cardio regular rhythm and no murmurs Rate: tachycardic GI normal to inspection, nondistended, normoactive bowel sounds and soft to palpation Extremity normal to inspection General Extremety ED: Negative for edema General Extremity: Negative for edema Neuro oriented x3 Sensorium / Orientation: awake and alert Motor Exam: Negative for general weakness Psych mental status grossly normal Skin no rashes or lesions noted and no wounds MDM MDM MDM Narrative Medical decision making narrative: Patient evaluated for sudden onset of chest tightness and shortness of breath and cough. Presentation concerning for developing flash pulmonary edema, ACS and differential also includes PE, pneumonia and CHF exacerbation. Patient given aspirin, nitroglycerin and Lasix in the emergency room. Cardiac workup obtained. At this time she is not in full flash pulmonary edema and her breathing seems to be improving. Does not require noninvasive ventilation. Patient tolerated sublingual nitroglycerin. No significant change in her chest discomfort. Will be given Nitropaste. Chest x-ray viewed by myself shows cephalization consistent with CHF with no acute effusions or infiltrate. Patient's workup shows mild hemoconcentration with elevation of her white blood cell count of 13.9 as well as elevation for hemoglobin of 16.3. Platelets are normal. No left shift. D-dimer is elevated and CTA is added on. This shows cardiomegaly with pulmonary edema and trace bilateral pleural effusions but no PE. BMP largely normal.-See troponin mildly elevated 26 and 36 (this is down significantly compared to her troponins on 04/03). BNP is elevated 1800 and increased compared to her most recent admission. Patient is titrated off of oxygen is now 93% on room air. She is ambulated however and drops to 88% and is quite symptomatic. She no longer has chest pain. Case is discussed with hospitalist will be admitted for concern of acute heart failure associated with potential flash pulmonary edema. Lab Data Attestation: I reviewed the patient's lab results. Labs: Laboratory Results - last 24 hr 04/21/25 04/21/25 13:52 15:56 WBC 13.9 H RBC 5.44 H Hgb 16.3 H Hct 49.5 H MCV 91.0 MCH 30.0 MCHC 32.9 RDW Std Deviation 43.5 RDW Coeff of Cally 13.1 Plt Count 237 MPV 12.9 H Immature Gran % (Auto) 0.400 Neut % (Auto) 73.2 H Lymph % (Auto) 18.2 L [place] % (Auto) 7.2 Eos % (Auto) 0.3 Baso % (Auto) 0.7 Absolute Neuts (auto) 10.2 H Absolute Lymphs (auto) 2.53 Nucleated RBC % 0 PT 12.9 INR 1.0 APTT 27.2 D-Dimer Quant (PE/DVT) 0.98 H* Sodium 135 Potassium 4.1 Chloride 99 Carbon Dioxide 18.1 L Anion Gap 18 H BUN 9 Creatinine 0.69 L Estim Creat Clear Calc 97.34 Est GFR (MDRD) Non-Af 98 BUN/Creatinine Ratio 13.6 Glucose 320 H Calcium 9.3 Magnesium 1.8 Troponin T High Sens 26 H D Troponin T Hi Sens 2 Hr 36 H NT pro BNP II 1818 H Radiography Diagnostic Testing: Clinical Impression(s) from Imaging Studies Chest X-Ray 04/21/25 14:20 IMPRESSION: Cardiomegaly with mild congestion. Reading Location: [facility] Chest CTA 04/21/25 14:47 IMPRESSION: No pulmonary arterial emboli identified. Cardiomegaly with pulmonary edema and trace bilateral pleural effusions. Reading Location: [facility] Rhythm Strip Rhythm Strip: Paced Rate: 114 Ectopy: None EKG Initial EKG: Attestation: I personally reviewed and interpreted this EKG as follows: Interpretation: Paced Comments: Atrial sensed ventricular paced rhythm at a rate of 114 bpm T wave inversions in 1, aVL as well as V2. Prior EKG tracings: available for review Prior: Unchanged Management Discussion w/another healthcare provider: Hospitalist Discharge Plan Triage Chief Complaint: Chest Pain ED Provider: Mago Jang Dx/Rx/DC Orders Clinical Impression: Chest pain, HFrEF (heart failure with reduced ejection fraction), Flash pulmonary edema, History of coronary artery disease Prescriptions: No Action clopidogrel [Plavix] 75 mg tablet 75 mg PO QDAY Qty: 94 3RF Rx Instructions: You will take 4 tablets on day one, and then one tablet daily. cholecalciferol (vitamin D3) [Vitamin D3] 10 mcg (400 unit) capsule 10 mcg PO DAILY 30 Days Qty: 30 0RF (DME) OneTouch Ultra Test Strip See Rx Instructions .Route Qty: 100 12RF Rx Instructions: As directed (DME) lancets [E-Z Ject Lancets] 30 gauge misc See Rx Instructions .Route Qty: 100 3RF Rx Instructions: As directed digoxin 125 mcg (0.125 mg) tablet 125 mcg PO DAILY Qty: 30 12RF losartan 50 mg tablet 50 mg PO DAILY Qty: 30 12RF metformin 850 mg tablet 850 mg PO BID Qty: 60 12RF metoprolol succinate 100 mg tablet extended release 24 hr 100 mg PO DAILY Qty: 30 12RF nitroglycerin 0.4 mg tablet, sublingual 0.4 mg SUBLINGUAL Q5-15M PRN (Reason: chest pain) Qty: 30 12RF Rx Instructions: until response; do not exceed 3 doses per episode omeprazole 40 mg capsule,delayed release(DR/EC) 40 mg PO DAILY PRN (Reason: GERD) Qty: 30 12RF aspirin 81 mg Tablet,Chewable 81 mg PO BREAKFAST 30 Days Qty: 30 0RF ezetimibe 10 mg Tablet 10 mg PO DAILY 30 Days Qty: 30 0RF insulin glargine-yfgn 100 unit/mL (3 mL) Insulin Pen 15 unit subcut QHS 30 Days Qty: 4.5 0RF Rx Instructions: Please provide enough for 1 month supply. insulin lispro [Humalog KwikPen Insulin] 100 unit/mL Insulin Pen See Protocol subcut ACHS Qty: 15 0RF Protocol: 4. Sliding Scale Insulin High-Med Dosing Condition: 150-199 mg/dl = 2 units Condition: 200-259 mg/dl = 4 units Condition: 260-324 mg/dl = 6 units Condition: 325-374 mg/dl = 8 units Condition: 375-409 mg/dl = 10 units Condition: 410-449 mg/dl = 11 units Condition: Greater than 449 call physician Protocol Text: Suggested for: - Patients on Total Daily Insulin Dose of 56-80 units - Patient who are known to be insulin resistant or septic HIGH MEDIUM DOSING ALGORITHM Rx Instructions: Please provide enough for 1 month supply. spironolactone 25 mg tablet 12.5 mg PO DAILY 30 Days Qty: 15 0RF Rx Instructions: Hold for SBP < 110 rosuvastatin [Crestor] 20 mg tablet 20 mg PO DAILY 30 Days Qty: 30 0RF furosemide 20 mg tablet 20 mg PO DAILY Qty: 30 12RF Osteo Bi-Flex Triple Strength 750 mg-644 mg- 30 mg-1 mg tablet 2 tab PO DAILY Primary Care Provider: Nyla Garcia NP Referrals: Nyla Garcia NP, [employer] [Primary Care Provider] - Print Language: Citizen Of [place] Disposition Disposition: Acute Care Hospital [facility]
[2025-04-21] MEDS: Nitroglycerin SL (ED/IMG/CATH) 0.4 MG TABLET SL (14:16)
--- NOTE | 2025-04-21 14:20 | RAD_ITS ---
EXAM: XR Chest, 1 View CLINICAL INDICATION: CHEST PAIN TECHNIQUE: Frontal view of the chest. COMPARISON: No relevant prior studies available. FINDINGS: LUNGS AND PLEURAL SPACES: See below. HEART: Cardiomegaly with mild congestion. MEDIASTINUM: Unremarkable. Normal mediastinal contour. BONES/JOINTS: Unremarkable. No acute fracture. TUBES, LINES AND DEVICES: Left-sided cardiac pacemaker. RAD/Chest 1 View (Portable) IMPRESSION: Cardiomegaly with mild congestion. Reading Location: [facility]
[2025-04-21 14:23] LABS: Hematocrit 49.5 % (37-47); Hemoglobin 16.3 g/dL (12.0-15.0); Immature Granulocytes Count 0.050 X10^3/uL (0.0-0.0); Mean Corp Hgb Conc 32.9 g/dL (32-36); Mean Corpuscular Volume 91.0 fL (81-99); Mean Platelet Vol. 12.9 fl (6.2-12.0); NRBC Flagged by Analyzer 0 % (0-5); Platelet Count 237 K/mm3 (150-450); RBC Distribution Width CV 13.1 % (11.6-14.6); RBC Distribution Width SD 43.5 fl (35.1-43.9); Red Blood Count 5.44 M/mm3 (4.2-5.4); White Blood Count 13.9 K/mm3 (4.4-11.0)
[2025-04-21] MEDS: Nitroglycerin Oint 1 INCH PACKET TD (14:33)
[2025-04-21 14:39] LABS: D-Dimer Quantitative (DVT/PE) 0.98 FEU/ug/m (0.27-0.49)
--- NOTE | 2025-04-21 14:47 | CT_ITS ---
PROCEDURE: CTA CHEST W/WO CONTRAST 04/21/2025 REASON FOR EXAM: SOB, ELEVATED DIMER TECHNIQUE: CTA CHEST W/WO CONTRAST Multiplanar Sagittal and Coronal images were obtained. 3D post processing was performed. CONTRAST: Isovue 370 VOLUME: 100 mL One or more dose reduction techniques were used (e.g., Automated exposure control, adjustment of the mA and/or kV according to patient size, use of iterative reconstruction technique). RADIATION DOSE SUMMARY: DLP: 426.18 mGycm COMPARISON: Radiographs from earlier today. No prior CT available. FINDINGS: PULMONARY VESSELS: No filling defects identified suspicious for pulmonary arterial emboli. Normal caliber of the pulmonary trunk. No evidence for right heart strain. LUNGS/PLEURA: Trace bilateral pleural effusions. Multifocal bilateral patchy predominantly ground-glass airspace consolidation mainly within the bilateral lower lobes, with less pronounced involvement of the right middle lobe and right upper lobe, most likely reflecting alveolar pulmonary edema, although pneumonia may be present in the appropriate clinical context. No pneumothorax. Patent airways. MEDIASTINUM/NODES: No suspicious lymph node enlargement. Nonspecific nonenlarged mediastinal and hilar lymph nodes are likely reactive. No axillary lymphadenopathy. HEART: Mildly enlarged. No pericardial effusion. Mild-moderate coronary artery calcifications with the presence of arterial stents. Left chest wall multilead ICD in appropriate positioning. THORACIC AORTA: Normal in course and caliber. Minimal atherosclerotic calcifications. UPPER ABDOMEN: Small 13 mm left adrenal gland nodule compatible with a benign fatty adenoma. Otherwise, unremarkable. BONES: Within normal limits. CT/CTA Chest W/WO Contrast IMPRESSION: No pulmonary arterial emboli identified. Cardiomegaly with pulmonary edema and trace bilateral pleural effusions. Reading Location: [id number]
[2025-04-21 14:51] LABS: Anion Gap 18 (5-15); BUN 9 mg/dL (4-19); BUN/Creat Ratio 13.6 RATIO (10-20); Calcium,Total 9.3 mg/dL (7.6-11.0); Carbon Dioxide 18.1 mmol/L (21.0-32.0); Chloride 99 mmol/L (98-108); Estimated Creatinine Clearance 97.34 ml/min (50-250); Glucose 320 mg/dL (70-99); Magnesium 1.8 mg/dL (1.5-2.2); Potassium 4.1 mmol/L (3.3-5.1); Pro- Brain NATRIURETIC PEPTIDE 1818 pg/mL (<=900); Troponin T High Sensitivity 26 ng/L (<=14)
[2025-04-21 16:36] LABS: Troponin T High Sens 2 HR 36 ng/L (<=14)
[2025-04-21 17:23] LABS: Partial Thromboplast Time 27.2 Seconds (24.1-36.2); Prothrombin Time (Protime)PT. 12.9 SECONDS (11.7-14.9)
--- NOTE | 2025-04-21 18:33 | HP.PCM.HOS_ITS ---
HPI - General General Date of Admission: 04/21/25 Date of Service: 04/21/25 Chief Complaint: Chest pressure, shortness of breath and cough HPI Narrative EAMON SCHWAB, is a 64 F who presented to [facility] ED on 04/21/2025 with acute onset chest pressure, shortness of breath and cough. Patient was recently hospitalized here from 04/01-04/03. She presented then with chest discomfort and shortness of breath. Was found to have elevated troponins and chest x-ray showed cardiomegaly with pulmonary edema. Had left heart cath done that showed three-vessel disease with 80% lesion in mid RCA, 95% stenosis in mid left circumflex and 80% mid LAD and 70% distal LAD lesions. Had stenting x 1 down to the left circumflex with plan for staged PCI to the LAD. This is currently scheduled for April 29. Echo during that hospitalization showed EF 25%. She notably did have known history of HFrEF and has PAINT GRINDER-D in place. She was discharged on Toprol, losartan, Lasix and digoxin. Patient states she had been doing well until earlier this afternoon. She got into a verbal argument with her neighbor then and shortly afterward developed chest pressure and shortness of breath. She then began to have a cough with pink frothy sputum production, so she came in for further evaluation. In the ED she had sinus tachycardia to the 110s and was satting 88% on room air at rest. She was only mildly hypertensive with systolic BP in the 130s to 140s. CTA chest showed no PE but did show cardiomegaly with pulmonary edema and trace bilateral pleural effusions. BNP 1818, which was worsened from BNP on 04/01 that was 1180. However, otherwise appeared hemoconcentrated on CBC and BMP with mild creatinine bump up to 0.69 from baseline around 0.5. She was given a dose of IV Lasix 40 mg in the ED with good urine output. Her oxygen saturation improved to the low 90s on room air at rest but dropped to the mid 80s on room air with exertion, so hospitalist was contacted for admission. I saw the patient at bedside in the ED, was present. Patient was mildly fatigued appearing but otherwise sitting back comfortably in bed, conversing normally, in no acute distress. She reported feeling improved from earlier today but still not back to her baseline. Denies any shortness of breath at rest currently. No other acute concerns at this time. Will be admitted for further management. [facility] Medical History Acute non-ST elevation myocardial infarction (NSTEMI) CAD (coronary artery disease) Congestive heart failure Arteriosclerosis of coronary artery Biventricular automatic implantable cardioverter defibrillator in situ ESBL (extended spectrum beta-lactamase) producing bacteria infection Neuropathy Myocardial infarct GERD (gastroesophageal reflux disease) Diabetes type 2, uncontrolled Hypertension Pacemaker Cardiac defibrillator in place Home Medications ?Medication ?Instructions ?Recorded ?Last Taken ?Type blood sugar diagnostic (OneTouch #100 ea 12/21/23 Unkn own Rx Ultra Test strips) lancets 30 gauge (E-Z Ject Lancets) #100 ea 12/21/23 U nknown Rx digoxin 125 mcg (0.125 mg) tablet 125 mcg PO DAILY hea rt #30 tabs 03/20/25 04/21/25 Rx losartan 50 mg tablet 50 mg PO DAILY bp #30 tabs 0 03/20/25 04/21/25 Rx metformin 850 mg tablet 850 mg PO BID diabetes #60 t abs 03/20/25 04/21/25 Rx metoprolol succinate 100 mg 100 mg PO DAILY heart #30 tabs 03/20/25 04/21/25 Rx tablet,extended release 24 hr nitroglycerin 0.4 mg sublingual 0.4 mg sublingual Q5-1 5M PRN chest 03/20/25 Unknown Rx tablet pain #30 tabs omeprazole 40 mg capsule,delayed 40 mg PO DAILY PRN GE RD #30 caps 03/20/25 04/01/25 09:00 Rx release aspirin 81 mg chewable tablet 81 mg PO BREAKFAST 30 da ys #30 tabs 04/02/25 04/21/25 Rx ezetimibe 10 mg tablet 10 mg PO DAILY 30 days #30 t abs 04/02/25 04/21/25 Rx furosemide 20 mg tablet 20 mg PO DAILY Swelling #30 tabs 04/02/25 04/21/25 Rx insulin glargine-yfgn 100 unit/mL 15 unit (0.15 mL) landrum bcut QHS 30 04/02/25 04/20/25 Rx (3 mL) subcutaneous pen days #4.5 mL insulin lispro 100 unit/mL See Protocol subcut ACHS #1 5 mL 04/02/25 04/21/25 Rx subcutaneous pen (Humalog KwikPen (U-100) Insulin) rosuvastatin 20 mg tablet (Crestor) 20 mg PO DAILY 30 days #30 tabs 04/02/25 04/20/25 Rx spironolactone 25 mg tablet 12.5 mg (1/2 x 25 mg) PO D AILY 30 04/02/25 04/21/25 Rx days #15 tabs cholecalciferol (vitamin D3) 10 10 mcg PO DAILY 30 day s #30 caps 04/13/25 04/21/25 Rx mcg (400 unit) capsule (Vitamin D3) clopidogrel 75 mg tablet (Plavix) 75 mg PO QDAY #94 ta bs 04/13/25 04/21/25 Rx glucosamine 750 [id number] 2 tab PO DAILY 03/2504/21/25 History no1 644 mg-C 30 mg-mar 1 mg tablet (Osteo Bi-Flex Triple Strength) Allergy/AdvReac Type Severity Reaction Status Date / Time sitagliptin (From [facility]) Allergy Severe Rash Verified 04/21/25 13:49 Cuwtcxp-MCH-JwB Reductase Allergy Intermediate cramps Verified 04/21/25 13:49 Inhibitor (Anszmxg-Qyk-Pnf Reductase Inhibitor) dapagliflozin (From [facility]) AdvReac Severe yeast Verified 04/21/25 13:49 Family History Sister Breast cancer Diabetes Thyroid disorder Mother CVA (cerebral vascular accident) Diabetes Heart disease Myocardial infarction Father Heart disease Myocardial infarction Other Acute non-ST elevation myocardial infarction (NSTEMI) CAD (coronary artery disease) Surgical History Stented coronary artery (04/03/25) H/O tubal ligation H/O heart artery stent Social History Smoking Status: Former smoker ROS Constitutional Constitutional: Denies chills, fatigue, fever(s) or weakness Eyes Eyes: Denies change in vision Cardiovascular Cardiovascular: Reports dyspnea on exertion; Denies chest pain, edema or lightheadedness Respiratory/Chest Respiratory/Chest: Reports cough, productive cough and shortness of breath with exertion; Denies shortness of breath at rest or wheezing Gastrointestinal Gastrointestinal: Denies abdominal pain Musculoskeletal Musculoskeletal: Denies arthralgias or myalgias Neurologic Neurologic: Denies dizziness, focal weakness or headache(s) Vital Signs Vital Signs Vital Signs: 04/21/25 13:45 04/21/25 13:48 04/21/25 13:52 Temperature 98.4 F 98.4 F Temperature Source Oral Oral Pulse Rate 119 H 118 H Respiratory Rate 31 H 31 H Respiratory Effort Short of Breath Blood Pressure 137/75 H 137/75 H Blood Pressure Mean 95 95 Pulse Ox 88 88 Oxygen Delivery Method Room Air Room Air Oxygen Flow Rate (L/min) 04/21/25 14:03 04/21/25 14:03 04/21/25 14:09 Temperature Temperature Source Pulse Rate Respiratory Rate 22 H Respiratory Effort Blood Pressure Blood Pressure Mean Pulse Ox 90 90 93 Oxygen Delivery Method Nasal Cannula Nasal Cannula Nasal Cannula Oxygen Flow Rate (L/min) 2 4 4 04/21/25 14:16 04/21/25 14:33 04/21/25 14:48 Temperature 97.7 F L Temperature Source Oral Pulse Rate 112 H 119 H 110 H Respiratory Rate 23 H Respiratory Effort Blood Pressure 145/81 H 121/66 H 141/83 H Blood Pressure Mean 102 Pulse Ox 95 Oxygen Delivery Method Nasal Cannula Oxygen Flow Rate (L/min) 2 04/21/25 16:00 04/21/25 16:35 04/21/25 17:00 Temperature 97.7 F L 97.8 F Temperature Source Oral Oral Pulse Rate 94 80 100 Respiratory Rate 18 18 25 H Respiratory Effort Blood Pressure 117/78 122/63 H 107/53 L Blood Pressure Mean 91 82 71 Pulse Ox 95 93 93 Oxygen Delivery Method Nasal Cannula Room Air Room Air Oxygen Flow Rate (L/min) 2 04/21/25 17:56 Temperature 97.9 F Temperature Source Pulse Rate 103 H Respiratory Rate 25 H Respiratory Effort Blood Pressure 114/80 Blood Pressure Mean 91 Pulse Ox 96 Oxygen Delivery Method Oxygen Flow Rate (L/min) Weight Weight: 93.4 kg Body Mass Index (BMI) 33.2 Physical Exam Const alert, oriented x3 and no apparent distress Constitutional Narrative: Upper middle-aged female, class I obesity, mildly fatigued appearing but otherwise sitting back comfortably in bed, conversing normally, in no acute distress. General Appearance: cooperative and comfortable HEENT normocephalic, head/scalp atraumatic, hearing grossly normal bilaterally, nasal mucous membranes and turbinates normal and moist oral mucous membranes Eyes PERRL, EOMs intact bilaterally and conjunctivae normal Neck full ROM Chest inspection of chest normal Resp normal respiratory effort and no use of accessory muscles Resp Narrative: Breathing comfortably on room air at rest. Diminished breath sounds in bilateral lung bases with mild crackles noted in mid lung zones. No wheezing noted. Cardio no murmurs and peripheral pulses 2+ throughout Cardio Narrative: Tachycardic, regular rhythm. GI normal to inspection, nondistended, normoactive bowel sounds, soft to palpation, non-tender and non-distended Back/Spine normal ROM Extremity normal to inspection, full ROM and no pedal edema Skin no rashes or lesions noted Psych mental status grossly normal Results Lab / Micro Data 04/21/25 13:52 04/21/25 13:52 Labs: Laboratory Results - last 24 hr 04/21/25 13:52: WBC 13.9 H, RBC 5.44 H, Hgb 16.3 H, Hct 49.5 H, MCV 91.0, MCH 30.0, MCHC 32.9, RDW Std Deviation 43.5, RDW Coeff of Cally 13.1, Plt Count 237, M PV 12.9 H, Immature Gran % (Auto) 0.400, Neut % (Auto) 73.2 H, Lymph % (Auto) 18.2 L, Angelina % (Auto) 7.2, Eos % (Auto) 0.3, Baso % (Auto) 0.7, Absolute Neuts (auto) 10.2 H, Absolute Lymphs (auto) 2.53, Nucleated RBC % 0, PT 12.9, INR 1.0, APTT 27.2, D-Dimer Quant (PE/DVT) 0.98 H*, Sodium 135, Potassium 4.1, Chloride 99, Carbon Dioxide 18.1 L, Anion Gap 18 H, BUN 9, Creatinine 0.69 L, Estim Creat Clear Calc 97.34, Est GFR (MDRD) Non-Af 98, BUN/Creatinine Ratio 13.6, Glucose 320 H, Calcium 9.3, Magnesium 1.8, Troponin T High Sens 26 H D, NT pro BNP II 1818 H 04/21/25 15:56: Troponin T Hi Sens 2 Hr 36 H Rhythm Strip Rhythm Strip: Paced Rate: 114 Ectopy: None Imaging Radiology Impression Chest X-Ray 04/21/25 14:20 IMPRESSION: Cardiomegaly with mild congestion. Reading Location: [facility] Chest CTA 04/21/25 14:47 IMPRESSION: No pulmonary arterial emboli identified. Cardiomegaly with pulmonary edema and trace bilateral pleural effusions. Reading Location: [facility] Assessment & Plan Assessment/Plan (1) Flash pulmonary edema: PLAN: Plan Patient is a 64-year-old female who presented [facility] ED on 04/01/2025 with chest pressure, shortness of breath and cough. 1. Suspected flash pulmonary edema with hypoxia on exertion ? Admit under observation status to PCU. Presented with acute onset chest pressure, shortness of breath and cough with pink frothy sputum production. CTA chest showed cardiomegaly with pulmonary edema and small bilateral pleural effusions. Satting in low 90s on room air at rest, dropped to mid 80s on room air with exertion. Give 1 dose of IV Lasix 40 mg in the ED. Notably aside from pulmonary edema, patient appears somewhat dry so we will hold on further IV Lasix and continue home p.o. Lasix 20 mg daily as below. Wean supplemental oxygen as able. Will plan for repeat oxygen ambulatory testing tomorrow in preparation for likely discharge home. 2. Recent history of CAD with stenting, chronic HFrEF, hypertension, hyperlipidemia, history of pacemaker/defibrillator placement, history of A- fib/flutter ? Follows with cardiology. Recent hospitalization for acute NSTEMI from 04/01- 04/03. Found to have triple-vessel disease; had stenting x 1 to the circumflex and plan is for staged PCI to the LAD on 04/29. EKG with sinus tachycardia and no ST changes. Mild troponin increase from 26 > 36 but suspect this is due to flash pulmonary edema as above. Will hold on cardiology consult and should be fine for discharge home in the next 1 to 2 days with plan to still have staged PCI in the outpatient setting next week. Continue home aspirin, Plavix, statin, digoxin, Lasix, and Toprol. Will hold home losartan and spironolactone for now. 3. Poorly controlled type 2 diabetes mellitus with hyperglycemia ? Blood glucose 320 on admit. Last A1c 12.0% on 03/31. Was started on Lantus 15 units at night along with home metformin on recent discharge. Plan was for patient to establish with Dr. Ventura's office but she has been unable to get an appointment there thus far. Will increase to Lantus 15 units twice daily and start Humalog 8 units with meals plus sliding scale insulin, adjust as needed. 4. Class I obesity ? BMI 33 on admit. Encouraged lifestyle modifications. DVT prophylaxis: Lovenox CODE STATUS: Full code, verified Expected disposition: Home, 1 to 2 days Total clinical time spent by myself addressing the patient's medical issues, reviewing all the data, and collaborating with patient's care team: 75 minutes. Charges/Coding Visit Charges Inpatient E&M: 89113 Init Hosp L3
[2025-04-21 18:46] LABS: Troponin T High Sens 4 HR 36 ng/L (<=14)
[2025-04-21] MEDS: Insulin Glargine-YFGN 100 UNIT/ML Pen 15 UNIT SC (21:20)
--- OUTSIDE RECORDS SUMMARY | 2025-04-21 23:01 | XMS RPT_ITS | CCD ---
Author Organization [facility] CliniSym[facility] Care Team Providers Care Salvage Winder Name Role Phone Jamie Garciaa Primary Care Provider [phone] GARCIA, NAIMA L Primary Care Unavailable GARCIA, NAIMA L Referring Unavailable GARCIA, NAIMA L Primary Care Unavailable Garcia EXERCISE RIDER-C, Naima Primary Care Provider Garcia EXERCISE RIDER-C, Naima Attending Provider Garcia EXERCISE RIDER-C, Naima Referring Provider Dr. Nik Bundy MD Emergency Provider Garcia EXERCISE RIDER-C, Naima Primary Care Provider Garcia EXERCISE RIDER-C, Naima Attending Provider Garcia EXERCISE RIDER-C, Naima Referring Provider Dr. Nik Bundy MD Attending Provider Dr. Mago Jang DO Emergency Provider Dr. Franko Cueto DO Admit Provider Dr. Franko Cueto DO Attending Provider Dr. Franko Cueto DO Other Provider Dr. Amaris Gomez MD Attending Provider Dr. Mino Zhang MD Other Provider Dr. Amaris Gomez MD Other Provider Raven Concepcion Attending Provider Unavailable Dr. Kalen Edwards MD Attending Provider Unavailab le Garcia EXERCISE RIDER-C, Naima Primary Care Provider [phone] Garcia EXERCISE RIDER-C, Naima Attending Provider Garcia EXERCISE RIDER-C, Naima Referring Provider Dr. Mino Zhang MD Attending Provider [phone] Garcia EXERCISE RIDER-C, Naima Primary Care Provider [phone] Garcia EXERCISE RIDER-C, Naima Attending Provider [phone] Garcia EXERCISE RIDER-C, Naima Referring Provider Charlie EXERCISE RIDER-C, Tamanna Attending Provider Garcia EXERCISE RIDER, Naima Primary Care Unavailable Nik Bundy Attending Unavailable Garcia EXERCISE RIDER, Naima Primary Care Unavailable Amaris Gomez Attending Unavailable Franko Cueto Consulting Unavailable Franko Cueto Admitting Unavailable Leatha, Williamson Consulting Unavailable Garcia EXERCISE RIDER, Naima Primary Care Unavailable Matt Ness Attending Unavailabl e Garcia EXERCISE RIDER, Naima Referring Unavailable Garcia EXERCISE RIDER, Naima Attending Unavailable Garcia EXERCISE RIDER, Naima Primary Care Unavailable Garcia EXERCISE RIDER, Naima Primary Care Unavailable Kalen Edwards Attending Unavailable Garcia EXERCISE RIDER, Naima Primary Care Unavailable Mago Jang Referring Unavailable Franko Cueto Attending Unavailable Franko Cueto Consulting Unavailable Nory, Franko Admitting Unavailable Amaris Gomez Attending Unavailable Leatha, Williamson Consulting Unavailable Amaris Gomez Consulting Unavailable Garcia EXERCISE RIDER, Naima Primary Care Unavailable Mino Zhang Attending Unavailable Garcia EXERCISE RIDER, Naima Primary Care Unavailable Garcia EXERCISE RIDER, Naima Referring Unavailable Charlie GARCIA, Tamanna Attending Unavailable Garcia EXERCISE RIDER, Naima Primary Care Unavailable Garcia EXERCISE RIDER, Naima Referring Unavailable Raven Concepcion Attending Unavailable Garcia EXERCISE RIDER, Naima Primary Care Unavailable Garcia EXERCISE RIDER, Naima Referring Unavailable Garcia EXERCISE RIDER, Naima Attending Unavailable Garcia EXERCISE RIDER, Naima Primary Care Unavailable Garcia EXERCISE RIDER, Naima Referring Unavailable Garcia EXERCISE RIDER, Naima Attending Unavailable Garcia EXERCISE RIDER, Naima Primary Care Unavailable Garcia EXERCISE RIDER, Naima Referring Unavailable Garcia EXERCISE RIDER, Naima Attending Unavailable GARCIA, NAIMA Primary Care Unavailable GARCIA, NAIMA Primary Care Unavailable GARCIA, NAIMA Primary Care Unavailable GARCIA, NAIMA Primary Care Unavailable Garcia EXERCISE RIDER-C, Naima Primary Care Provider [phone] Garcia EXERCISE RIDER-C, Naima Attending Provider Garcia EXERCISE RIDER-C, Naima Referring Provider Dr. Franko Cueto DO Attending Provider Allergies Allergy Classification Reported Allergen(s) Allergy Type Date of Onset Reaction(s) Facility (1 source) rosuvastatin Drug Allergy 6 Other (See Comments) [facility] (13 sources) Uadbpya-Teh-Ddm Reductase Inhibitor Allergy to substance 2 cramps [facility] (10 sources) dapagliflozin Drug Allergy 5 yeast [facility] (10 sources) SITagliptin Drug Allergy 5 Rash [facility] (1 source) dapagliflozin Drug Allergy 5 [facility] (1 source) SITagliptin Drug Allergy 5 [facility] (1 source) Fukqutq-Nls-Zmo Reductase Inhibitor Drug allergy (disorder) 5 [facility] Medications Current Medications Medication Drug Class(es) Dates Sig (Normalized) Sig (Original) aspirin 81 mg chewable tablet (20 sources) Platelet Aggregation Inhibitor, Nonsteroidal Anti-inflammatory Drug Start: 12-06-2020 End: 04-01-2025 take 1 tablet by mouth at breakfast Aspirin 81 mg Tablet,Chewable Active 81 mg PO WITH BREAKFAST 30 30 0 April 02, 2025 12:00am Start: 08-20-2017 take 1 tablet by madan th once daily aspirin EC 81 MG EC tablet Indications: Coronary artery disease involving [place] coronary artery of [place] heart without angina pectoris Take 1 tablet by mouth daily 30 tablet 3 08/20/2017 Active atorvastatin 40 mg oral tablet (1 source) HMG-CoA Reductase Inhibitor Start: 03-09-2020 take 1 tablet by mouth once daily atorvastatin (LIPITOR) 40 MG tablet Indications: Hyperlipidemia, unspecified hyperlipidemia type Take 1 tablet by mouth daily 90 tablet 1 03/09/2020 Active B Uagzdfb-M-Itwxb Acid (B COMPLEX + C TR) TBCR (1 source) B Sgdyldx-Y-Adai c Acid (B COMPLEX + C TR) TBCR Take by mouth daily 0 Active cholecalciferol 0.01 mg oral capsule (20 sources) Vitamin D Start: 04-02-2025 End: 04-13-2025 take 1 capsule by mouth once daily Cholecalciferol (Vitamin D3) (Vitamin D3) 10 mcg (400 unit) capsule Active 10 ug PO DAILY 30 30 0 April 13, 2025 2:32pm Start: 10-15-2018 End: 04-01-2025 take 1 capsule by mouth once daily Cholecalciferol (Vitamin D3) 1,000 unit capsule Discontinued 1000 U PO DAILY October 15, 2018 1:00am April 01, 2025 9:11pm take 1 capsule by [facility] once daily Cholecalciferol (VITAMIN D3) 2000 UNITS CAPS Take 2,000 Units by mouth daily 0 Active clopidogrel 75 mg oral tablet (9 sources) P2Y12 Platelet Inhibitor Start: 04-13-2025 take 4 tablets by mouth once daily, then take 1 tablet by mouth once daily, then take 1 tablet by mouth once daily Clopidogrel (Plavix) 75 mg tablet Active 75 mg PO daily 94 April 13, 2025 12:00am You will take 4 tablets on day one, and then one tablet daily. Start: 04-02-2025 End: 04-13-2025 take 1 tablet by mouth once daily Clopidogrel (Plavix) 75 mg tablet Discontinued 75 mg PO DAILY 30 30 0 April 02, 2025 12:00am April 13, 2025 2:02pm ezetimibe 10 mg oral tablet (19 sources) Dietary Cholesterol Absorption Inhibitor Start: 04-02-2025 take 1 tablet by mouth once daily Ezetimibe 10 mg Tablet Active 10 mg PO DAILY 30 30 0 April 02, 2025 12:00am Start: 12-24-2023 End: 12-09-2024 take 1 tablet by mouth once daily Ezetimibe 10 mg tablet Discontinued 10 mg PO DAILY 90 December 24, 2023 12:00am December 09, 2024 7:22pm Kijezzvb-Uczd-Lbc1-C-Mar-Taiwo sw (Osteo Bi-Flex Triple Strength) 750 mg-644 mg- 30 mg-1 mg tablet (1 source) Start: 04-21-2025 Mztwqftd-Tpuz-Sul3-C-Mar-Taiwo sw (Osteo Bi-Flex Triple Strength) 750 mg-644 mg- 30 mg-1 mg tablet Active 2 {tbl} PO DAILY April 21, 2025 12:00am Insulin Glargine-Yfgn 100 unit/mL (3 mL) Insulin Pen (7 sources) Start: 04-02-2025 Insulin Glargine-Yfgn 100 unit/mL (3 mL) Insulin Pen Active 15 U SC AT BEDTIME 4.5 30 0 April 02, 2025 12:00am Please provide enough for 1 month supply. 3 ml insulin lispro 100 unt/ ml pen injector (7 sources) Insulin Analog Start: 04-02-2025 Insulin Lispro (Humalog Kwik pen Insulin) 100 unit/mL Insulin Pen Active 0 U SC BEFORE MEALS AND AT BEDTIME 15 0 April 02, 2025 12:00am Please provide enough for 1 month supply. Please contact the information source for Protocol details. [place]-3 Fatty Acids (Fish Oi l Concentrate) 1,000 mg capsule (14 sources) Start: 11-14-2018 [place]-3 Fatty Acids (Fish Oi l Concentrate) 1,000 mg capsule Active 2000 MG PO DAILY November 14, 2018 7:38pm Start: 11-14-2018 End: 04-02-2025 [place]-3 Fatty Acids (Fish Oi l Concentrate) 1,000 mg capsule Discontinued 2000 mg PO DAILY November 14, 2018 1:00am April 02, 2025 3:05am Start: 11-14-2018 [place]-3 Fatty Acids (Fish Oil Concentrate) 1,000 mg capsule Active 2000 mg PO DAILY November 14, 2018 1:00am Start: 11-14-2018 [place]-3 Fatty Acids (Fish Oil Concentrate) 1,000 mg capsule Active 2000 MG PO DAILY November 14, 2018 1:00am rosuvastatin calcium 20 mg oral tablet (7 sources) HMG-CoA Reductase Inhibitor Start: 04-02-2025 take 1 tablet by mouth once daily Rosuvastatin (Crestor) 20 mg tablet Active 20 mg PO DAILY 30 30 0 April 02, 2025 12:00am Semaglutide (OZEMPIC, 0.25 OR 0.5 MG/DOSE, SC) (1 source) Semaglutide (OZEMPIC, 0.25 OR 0.5 MG/DOSE, SC) Inject into the skin once a week 0 Active 1000 ml sodium chloride 9 mg/ml injection (3 sources) Start: 08-16-2021 0.9 % sodium chloride infusion Start: 08-16-2021 sodium chlorid e flush 0.9 % injection 5-40 mL spironolactone 25 mg oral tablet (7 sources) Aldosterone Antagonist Start: 04-02-2025 Spironolactone 25 mg tablet Active 12.5 mg PO DAILY 15 30 0 April 02, 2025 12:00am Hold for SBP Completed/Discontinued Medications Medication Drug Class(es) Dates Sig (Normalized) Sig (Original) amoxicillin 875 mg oral tablet (20 sources) Penicillin-class Antibacterial Start: 12-06-2020 End: 12-14-2021 take 1 tablet by mouth twice daily Amoxicillin 875 mg tablet Discontinued 875 mg PO TWICE A DAY 20 0 July 18, 2021 12:00am December 14, 2021 6:23pm apixaban 5 mg oral tablet (14 sources) Factor Xa Inhibitor Start: 04-15-2020 End: 12-06-2020 take 1 tablet by mouth twice daily Apixaban (Eliquis) 5 mg tablet Discontinued 5 mg PO TWICE A DAY April 15, 2020 12:00am December 06, 2020 5:55pm cefuroxime 500 mg oral tablet (20 sources) Cephalosporin Antibacterial Start: 01-20-2019 End: 12-11-2019 take 1 tablet by mouth twice daily Cefuroxime Axetil 500 mg tablet Discontinued 500 mg PO TWICE A DAY 20 0 August 01, 2019 4:07pm December 11, 2019 5:26pm ciprofloxacin 500 mg oral tablet (11 sources) Quinolone Antimicrobial Start: 10-03-2024 End: 12-09-2024 take 1 tablet by mouth twice daily Ciprofloxacin Hcl (Cipro) 500 mg tablet Discontinued 500 mg PO TWICE A DAY 14 0 October 03, 2024 1:00am December 09, 2024 7:22pm dapagliflozin 10 mg oral tablet (20 sources) Sodium-Glucose Cotransporter 2 Inhibitor Start: 10-15-2018 End: 12-12-2024 take 1 tablet by mouth once daily Dapagliflozin Propanediol (Farxiga) 10 mg tablet Discontinued 10 mg PO DAILY 90 3 December 21, 2023 3:11pm December 12, 2024 3:20pm digoxin 0.125 mg oral tablet (20 sources) Cardiac Glycoside Start: 03-09-2020 End: 03-20-2025 take 1 tablet by mouth once daily Digoxin 125 mcg (0.125 mg) tablet Discontinued 125 ug PO DAILY 90 3 December 26, 2024 3:10pm March 20, 2025 5:14pm Start: 10-15-2018 End: 12-06-2020 take 0.125 mg by mouth once daily Digoxin 125 mcg tablet Discontinued 0.125 mg PO DAILY 90 October 15, 2018 5:23pm December 06, 2020 5:59pm Start: 10-15-2018 End: 12-06-2020 take 0.125 mg by mouth once daily Digoxin Discontinued 0.125 MG PO DAILY 90 October 15, 2018 5:23pm December 06, 2020 5:59pm doxycycline hyclate 100 mg oral capsule (20 sources) Tetracycline-class Drug Start: 10-06-2024 End: 03-20-2025 take 1 capsule by mouth twice daily Doxycycline Hyclate 100 mg capsule Discontinued 100 mg PO TWICE A DAY 20 December 09, 2024 12:00am March 20, 2025 5:05pm Dulaglutide (20 sources) GLP-1 Receptor Agonist Start: 02-04-2024 End: 02-27-2024 Dulaglutide 4.5 mg/0.5 mL pen injector Discontinued 4.5 mg SC EVERY WEEK 2.5 22 09February 04, 2024 12:00am February 27, 2024 4:09pm Start: 02-04-2024 End: 02-27-2024 Dulaglutide 4.5 mg/0.5 mL pe n injector Discontinued 4.5 mg SC EVERY WEEK 2.5 February 04, 2024 12:00am February 27, 2024 4:09pm Start: 12-21-2023 End: 02-04-2024 Dulaglutide 3 mg/0.5 mL pen injector Discontinued 3 mg SC EVERY WEEK 2.5 22 09December 21, 2023 12:00am February 04, 2024 3:54pm Start: 12-21-2023 End: 02-04-2024 Dulaglutide 3 mg/0.5 mL pen injector Discontinued 3 mg SC EVERY WEEK 2.5 December 21, 2023 12:00am February 04, 2024 3:54pm Start: 12-21-2023 Dulaglutide Ac tive 3 MG SC EVERY WEEK 2.5 December 21, 2023 12:00am Start: 01-16-2023 End: 03-06-2023 Dulaglutide (Trulicity) 1.5 mg/0.5 mL pen injector Discontinued 1.5 mg SC EVERY WEEK 2.5 22 09January 16, 2023 12:00am March 06, 2023 3:23pm fluconazole 150 mg oral tablet (14 sources) Azole Antifungal Start: 01-20-2019 End: 01-21-2019 Fluconazole 150 mg tablet Discontinued 150 mg PO Every 3 Days 2 0 3 January 20, 2019 12:00am January 20, 2019 12:00am January 21, 2019 12:07am furosemide 20 mg oral tablet (20 sources) Loop Diuretic Start: 10-15-2018 End: 04-02-2025 take 1 tablet by mouth once daily as needed Furosemide 20 mg tablet Discontinued 20 mg PO DAILY as needed for Swelling 22 09March 20, 2025 5:10pm April 02, 2025 2:22pm glimepiride 4 mg oral tablet (20 sources) Sulfonylurea Start: 04-21-2025 End: 04-21-2025 take 1 tablet by mouth once daily Glimepiride 4 mg tablet Discontinued 4 mg PO DAILY April 21, 2025 12:00am April 21, 2025 2:29pm Start: 12-12-2024 End: 04-13-2025 take 1 tablet by mouth once daily at breakfast Glimepiride 4 mg tablet Discontinued 4 mg PO EVERY MORNING 30 March 20, 2025 5:10pm April 13, 2025 2:03pm diabetes administer with breakfast isopropyl alcohol 0.7 ml/ml medicated pad (12 sources) Start: 12-21-2023 End: 12-09-2024 Alcohol Swabs (Bd Alcohol Sw abs) pads, medicated Discontinued 1 NMA TOPICAL THREE TIMES A DAY December 21, 2023 12:00am December 09, 2024 7:23pm Start: 12-21-2023 Alcohol Swabs (Bd Alcohol Swabs) pads, medicated Active 1 PAD TOPICAL THREE TIMES A DAY December 21, 2023 12:00am losartan potassium 50 mg oral tablet (20 sources) Angiotensin 2 Receptor Adam Start: 10-15-2018 End: 03-20-2025 take 1 tablet by mouth once daily Losartan 50 mg tablet Discontinued 50 mg PO DAILY 90 December 26, 2024 3:10pm March 20, 2025 5:14pm metFORMIN hydrochloride 850 mg oral tablet (20 sources) Biguanide Start: 07-18-2021 End: 03-20-2025 take 1 tablet by mouth twice daily Metformin 850 mg tablet Discontinued 850 mg PO TWICE A DAY 180 December 26, 2024 3:11pm March 20, 2025 5:14pm Start: 10-15-2018 End: 12-14-2021 take 1 tablet by mouth twice daily Metformin 500 mg tablet Discontinued 500 mg PO TWICE A DAY 180 3 December 06, 2020 5:58pm December 14, 2021 6:23pm Start: 07-22-2018 take 2 tablets by mo [facility] twice daily at mealtime metFORMIN (GLUCOPHAGE XR) 500 MG extended release tablet Indications: Type 2 diabetes mellitus without complication, without long-term current use of insulin (HCC) Take 2 tablets by mouth 2 times daily (with meals) 360 tablet 0 07/22/2018 Active 24 hr metoprolol succinate 100 mg extended release oral tablet (20 sources) beta-Adrenergic Adam Start: 05-18-2020 take 1 tablet by mouth twice daily metoprolol succinate (TOPROL XL) 100 MG extended release tablet Indications: Atrial fibrillation, unspecified type (HCC) Take 1 tablet by mouth 2 times daily 180 tablet 3 05/18/2020 Active Start: 10-15-2018 End: 03-20-2025 take 1 tablet by mouth once daily Metoprolol Succinate 100 mg tablet extended release 24 hr Discontinued 100 mg PO DAILY 90 December 26, 2024 3:11pm March 20, 2025 5:14pm nitroglycerin 0.4 mg sublingual tablet (20 sources) Nitrate Vasodilator Start: 10-31-2018 End: 03-20-2025 Nitroglycerin 0.4 mg tablet, sublingual Discontinued 0.4 mg SL every 5 to 15 minutes as needed for chest pain 30 December 26, 2024 3:11pm March 20, 2025 5:14pm until response; do not exceed 3 doses per episode omeprazole 40 mg delayed release oral capsule (20 sources) Proton Pump Inhibitor Start: 10-15-2018 End: 03-20-2025 take 1 capsule by mouth once daily as needed for gastroesophageal reflux disease Omeprazole 40 mg capsule,delayed release(DR/EC) Discontinued 40 mg PO DAILY as needed for GERD 90 December 26, 2024 3:11pm March 20, 2025 5:14pm pioglitazone 45 mg oral tablet (20 sources) Peroxisome Proliferator Receptor alpha Agonist, Peroxisome Proliferator Receptor gamma Agonist, Thiazolidinedione Start: 04-21-2025 End: 04-21-2025 take 1 tablet by mouth once daily Pioglitazone 45 mg tablet Discontinued 45 mg PO DAILY April 21, 2025 12:00am April 21, 2025 2:29pm Start: 03-20-2025 End: 04-02-2025 take 1 tablet by mouth once daily Pioglitazone 45 mg tablet Discontinued 45 mg PO daily 30 March 20, 2025 12:00am April 02, 2025 3:06am Start: 12-12-2024 End: 03-20-2025 take 1 tablet by mouth once daily Pioglitazone 30 mg tablet Discontinued 30 mg PO daily 30 December 12, 2024 12:00am March 20, 2025 5:14pm predniSONE 20 mg oral tablet (11 sources) Start: 04-29-2024 End: 10-03-2024 take 2 tablets by mouth once daily Prednisone 20 mg tablet Discontinued 40 mg PO DAILY 20 April 29, 2024 12:00am October 03, 2024 5:57pm 1 mg dose 1.5 ml semaglutide 1.34 mg/ml pen injector (18 sources) Start: 03-06-2023 End: 12-21-2023 Semaglutide Discontinued [...] 14, 2021 6:24pm for 4 doses Semaglutide (20 sources) Start: 03-20-2025 End: 04-06-2025 Semaglutide (Ozempic) 0.25 m g or 0.5 mg (2 mg/3 mL) pen injector Discontinued 0.5 mg SC EVERY WEEK 3 March 20, 2025 12:00am April 06, 2025 5:56pm Furuncle of trunk Uncontrolled type 2 diabetes mellitus [place]cle of trunk, unspecified Type 2 diabetes mellitus with hyperglycemia diabetes Start: 03-20-2025 Semaglutide (O zempic) 0.25 mg or 0.5 mg (2 mg/3 mL) pen injector Active 0.5 mg SC EVERY WEEK 3 March 20, 2025 12:00am [place] Uncontrolled type 2 diabetes mellitus [place]cle of trunk, unspecified Type 2 diabetes mellitus with hyperglycemia diabetes Start: 01-15-2023 End: 01-16-2023 Semaglutide 0.25 mg or 0.5 m g (2 mg/3 mL) pen injector Discontinued 0.5 mg SC EVERY WEEK 4 30 January 15, 2023 3:33pm January 16, 2023 2:45pm for 4 weeks Start: 01-15-2023 End: 01-16-2023 Semaglutide 0.25 mg [...] Discontinued 0.25 mg SC EVERY WEEK 2 30 December 26, 2022 12:00am January 15, 2023 [...] mg/dose (2 mg/ 1.5 mL) pen injector (20 sources) Start: 12-21-2023 End: 12-21-2023 Semaglutide 1 mg/dose (2 mg/ 1.5 mL) pen injector Discontinued 2 mg SC EVERY WEEK 7.5 30 December 21, 2023 3:21pm December 21, 2023 6:30pm Start: 12-21-2023 End: 12-21-2023 Semaglutide 1 mg/dose (2 mg/ 1.5 mL) pen injector Discontinued 2 mg SC EVERY WEEK 7.5 December 21, 2023 3:21pm December 21, 2023 6:30pm Start: 05-25-2023 End: 12-21-2023 Semaglutide 1 mg/dose (2 mg/ 1.5 mL) pen injector Discontinued 2 mg SC EVERY WEEK 7.5 30 May 25, 2023 4:15pm December 21, 2023 3:21pm Start: 05-25-2023 End: 12-21-2023 Semaglutide 1 mg/dose (2 mg/ 1.5 mL) pen injector Discontinued 2 mg SC EVERY WEEK 7.5 May 25, 2023 4:15pm December 21, 2023 3:21pm Start: 03-06-2023 End: 05-25-2023 Semaglutide 1 mg/dose (2 mg/ 1.5 mL) pen injector Discontinued 2 mg SC EVERY WEEK 7.5 30 March 06, 2023 12:00am May 25, 2023 4:15pm Start: 03-06-2023 End: 05-25-2023 Semaglutide 1 mg/dose (2 mg/ 1.5 mL) pen injector Discontinued 1 mg SC EVERY WEEK 3.75 30 March 06, 2023 12:00am May 25, 2023 4:15pm Start: 03-06-2023 End: 05-25-2023 Semaglutide 1 mg/dose (2 mg/ 1.5 mL) pen injector Discontinued 2 mg SC EVERY WEEK 7.5 March 06, 2023 12:00am May 25, 2023 4:15pm Start: 03-06-2023 End: 05-25-2023 Semaglutide 1 mg/dose (2 mg/ 1.5 mL) pen injector Discontinued 1 mg SC EVERY WEEK 3.75 30 March 06, 2023 12:00am May 25, 2023 4:15pm SITagliptin 100 mg oral tablet (14 sources) Dipeptidyl Peptidase 4 Inhibitor Start: 10-15-2018 End: 08-01-2019 take 1 tablet by mouth once daily Sitagliptin Phosphate (Januvia) 100 mg tablet Discontinued 100 mg PO DAILY October 15, 2018 1:00am August 01, 2019 4:07pm sulfamethoxazole 800 mg / trimethoprim 160 mg oral tablet (9 sources) Dihydrofolate Reductase Inhibitor Antibacterial, Sulfonamide Antimicrobial Start: 12-16-2024 End: 12-26-2024 Sulfamethoxazole- Trimethoprim 800-160 mg tablet Discontinued 1 {tbl} PO TWICE A DAY 20 10 0 December 16, 2024 12:00am December 25, 2024 12:00am December 26, 2024 12:13am hematuria vancomycin 1000 MG IVPB in 250 mL NS add-vantage (1 source) Start: 08-16-2021 End: 08-16-2021 vancomycin 1000 MG IVPB in 250 mL NS add-vantage vitamin e 180 mg oral capsule (14 sources) Start: 10-15-2018 End: 12-09-2024 Vitamin E (Dl, Acetate) 400 unit capsule Discontinued 180 U PO DAILY October 15, 2018 1:00am December 09, 2024 7:23pm Start: 10-15-2018 take 180 [IU] by madan th once daily Vitamin E (Dl, Acetate) Active 180 UNIT PO DAILY October 15, 2018 1:00am Problems Problem Classification Problem Date Documented Da te Episodic/Chronic Acute myocardial infarction (18 sources) Myocardial infarction; Translations: [Acute myocardial infarction, unspecified] Onset: 5 06-16-2015 Chronic Cardiac dysrhythmias (20 sources) Fluttering heart; Translations: [Other specified cardiac arrhythmias] 03-20-2020 Chronic Cardiac dysrhythmias (9 sources) Palpitations; Translations: [Palpitations] Onset: 5 03-31-2025 Episodic Conduction disorders (20 sources) Cardiac defibrillator in situ; Translations: [Presence of automatic (implantable) cardiac defibrillator] Onset: 6 Resolved: 7 10-06-2019 Chronic Congestive heart failure; nonhypertensive (20 sources) Chronic systolic heart failure; Translations: [Chronic systolic (congestive) heart failure] Onset: 5 Chronic Congestive heart failure; nonhypertensive (5 sources) Congestive heart failure; nonhypertensive Coronary atherosclerosis and other heart disease (20 sources) Coronary arteriosclerosis; Translations: [Atherosclerotic heart disease of [place] coronary artery without angina pectoris] Onset: 0 06-16-2015 Chronic Coronary atherosclerosis and other heart disease (8 sources) Stented coronary artery; Translations: [Presence of coronary angioplasty implant and graft] Onset: 7 07-20-2017 Episodic Comment on above: 3.0 X 26 mm Darinel Fro ntier MORGAN to LCXIFR to LAD = 0.67 Diabetes mellitus with complications (14 sources) Type II diabetes mellitus uncontrolled; Translations: [Uncontrolled type 2 diabetes mellitus] 12-07-2020 Chronic Diabetes mellitus without complication (2 sources) Diabetes mellitus; Translations: [Type 2 diabetes mellitus without complications] Onset: 6 06-16-2015 Chronic Diabetes mellitus without complication (11 sources) Hyperglycemia; Translations: [Hyperglycemia, unspecified] 10-03-2024 Episodic Diabetes mellitus without complication (17 sources) Diabetes mellitus without complication; Translations: [Acute non-ST elevation myocardial infarction (NSTEMI)] Disorders of lipid metabolism (3 sources) Hyperlipidemia; Translations: [Hyperlipidemia, unspecified] 06-16-2015 Chronic E Codes: Adverse effects of medical drugs (11 sources) Adverse reaction; Translations: [Adverse effect of unspecified topical agent, initial encounter] 04-30-2024 Episodic Esophageal disorders (15 sources) Gastroesophageal reflux disease; Translations: [Gastro-esophageal reflux disease without esophagitis] 06-16-2015 Chronic Essential hypertension (20 sources) Hypertensive disorder; Translations: [Essential (primary) hypertension] Onset: 5 06-16-2015 Chronic Fluid and electrolyte disorders (11 sources) Hypovolemia; Translations: [Hypovolemia] 10-03-2024 Episodic Malaise and fatigue (14 sources) Fatigue; Translations: [Other fatigue] 03-20-2020 Episodic Mycoses (11 sources) Candidal vulvovaginitis; Translations: [Candidal vulvovaginitis] 12-09-2024 Episodic Nonspecific chest pain (15 sources) Chest pain; Translations: [Chest pain, unspecified] Onset: 04-02-2025 Episodic Osteoarthritis (13 sources) Osteoarthritis of hip; Translations: [Osteoarthritis of hip, unspecified] 12-21-2022 Chronic Other and unspecified benign neoplasm (1 source) Leiomyoma; Translations: [Benign neoplasm of connective and other soft tissue, unspecified] 06-16-2015 Episodic Other bone disease and musculoskeletal deformities (12 sources) Bone cyst of left foot; Translations: [Other cyst of bone, left ankle and foot] 12-21-2023 Episodic Other circulatory disease (11 sources) Orthostatic hypotension; Translations: [Orthostatic hypotension] 10-03-2024 Episodic Other circulatory disease (1 source) H/O: heart disorder; Translations: [Personal history of other diseases of the circulatory system] 04-21-2025 Episodic Other gastrointestinal disorders (12 sources) Burping; Translations: [Eructation] 12-21-2023 Episodic Other injuries and conditions due to external causes (9 sources) Local infection of wound; Translations: [Other injury of unspecified body region, initial encounter] 12-22-2024 Episodic Other injuries and conditions due to external causes (9 sources) Open wound; Translations: [Other injury of unspecified body region, initial encounter] 12-26-2024 Episodic Other lower respiratory disease (20 sources) Dyspnea; Translations: [Shortness of breath] 05-20-2020 Episodic Other lower respiratory disease (1 source) Acute cardiac pulmonary edema ; Translations: [Acute pulmonary edema] 04-21-2025 Episodic Other nervous system disorders (12 sources) Neuropathy; Translations: [Polyneuropathy, unspecified] 03-06-2023 Chronic Comment on above: olower extremities Other nervous system disorders (11 sources) Pain of skin; Translations: [Other disturbances of skin sensation] 04-30-2024 Episodic Other non-traumatic joint disorders (13 sources) Hip pain; Translations: [Pain in right [...] Episodic Other nutritional; endocrine; and metabolic disorders (11 sources) Weight increased; Translations: [Abnormal weight gain] 02-28-2024 Episodic Other nutritional; endocrine; and metabolic disorders (11 sources) Weight decreased; Translations: [Abnormal weight loss] 01-15-2023 Episodic Other upper respiratory infections (14 sources) Acute maxillary sinusitis; Translations: [Acute maxillary sinusitis, unspecified] 03-20-2020 Episodic Otitis media and related conditions (14 sources) Otitis media; Translations: [Otitis media, unspecified, left ear] 12-07-2020 Episodic Residual codes; unclassified (1 source) Sleep apnea; Translations: [Sleep apnea, unspecified] 06-24-2015 Chronic Residual codes; unclassified (1 source) Menopause present; Translations: [Asymptomatic menopausal state] 06-16-2015 Episodic Skin and subcutaneous tissue infections (20 sources) Furuncle of trunk; Translations: [Furuncle of trunk, unspecified] Onset: 12-09-2024 Episodic Unclassified (7 sources) Please follow-up to establish with Endocrinology, may see EXERCISE RIDER. Unclassified (7 sources) Follow-up within 3-5 days to review admission. Repeat BP check given new medications. Repeat basic metabolic panel at follow-up. Unclassified (7 sources) Please follow-up in 1-2 weeks for re-evaluation following recent PCI admission. Unclassified (5 sources) Presence of stent in coronary artery Unclassified (5 sources) Acute non-ST elevation myocardial infarction (NSTEMI) Unclassified (1 source) Arteriosclerosis of coronary artery Unclassified (9 sources) Biventricular implantable cardioverter-defibrill ator (ICD) in situ Unclassified (5 sources) Z95.5 - Presence of coronary angioplasty implant and graft,I21.4 - Non-ST elevation (NSTEMI) myocardial infarction,I25.10 - Atherosclerotic heart disease of [place] coronary artery without angina pectoris,I50.20 - Unspecified systolic (congestive) heart failure,Z95.810 - Presence of automatic (implantable) cardiac defibrillator,R07.9 - Chest pain, unspecified,I48.91 - Unspecified atrial fibrillation,I48.92 - Unspecified atrial flutter,E11.65 - Type 2 diabetes mellitus with hyperglycemia,I10 - Essential (primary) hypertension Unclassified (8 sources) follow up stent Urinary tract infections (12 sources) Cystitis; Translations: [Cystitis, unspecified without hematuria] Onset: 10-03-2024 Episodic Viral infection (14 sources) Disease caused by 2019-nCoV; Translations: [COVID-19] 09-28-2021 Episodic Results Test Name Value Interpretation Reference Range Facility Absolute lymphocyte countOrd ered By: Mago Jang on 04-21-2025 Lymphocytes Auto (Unsp spec) [#/Vol] 2.53 10*3/uL 0.83-4.51 [facility] Absolute neutrophil countOrd ered By: Mago Jang on 04-21-2025 Neutrophils (Bld) [#/Vol] 10.2 10*3/uL High 2.0-7.7 [facility] Activated partial thrombopla stin time (aPTT) in platelet poor plasma by coagulation aOrdered By: Mago Jang on 04-21-2025 aPTT Coag (PPP) [Time] 27.2 s 24.1-36.2 [facility] Anion gap in Serum or Plasma Ordered By: Mago Jang on 04-21-2025 Anion gap [Moles/Vol] 18 mmol/L High 5-15 [facility] Automated lymphocyte count a s percentage of total leukocytesOrdered By: Mago Jang on 04-21-2025 Lymphocytes/100 WBC Auto (Unsp spec) 18.2 % Low 19-41 [facility] BUN/creatinine ratioOrdered By: Mago Jang on 04-21-2025 Urea nitrogen/Creatinine [Mass ratio] 13.6 mg/mg 10-20 [facility] Basophil percentageOrdered B y: Mago Jang on 04-21-2025 Basophils/100 WBC (Bld) 0.7 % 0-1 [facility] Carbon dioxide, total [Moles /volume] in Central venous bloodOrdered By: Mago Jang on 04-21-2025 CO2 [Moles/Vol] 18.1 mmol/L Low 21.0-32.0 [facility] Chloride assayOrdered By: Tariq Jang on 04-21-2025 Chloride [Moles/Vol] 99 mmol/L 98-108 [facility] Eosinophil percentageOrdered By: Mago Jang 04-21-2025 Eosinophils/100 WBC (Bld) 0.3 % 0-5 [facility] Erythrocyte distribution wid th ratioOrdered By: Mago Jang on 04-21-2025 Erythrocyte distribution width (RBC) [Ratio] 13.1 % 11.6-14.6 [facility] Erythrocyte distribution wid th standard deviationOrdered By: Mago Jang 04-21-2025 Erythrocyte distribution width (RBC) [Ratio] 43.5 fl 35.1-43.9 [facility] Glomerular filtration rate ( GFR) estimation/1.73 sq m using serum, plasma, or whole bOrdered By: Mago Jang on 04-21-2025 GFR/1.73 sq M.predicted among non-blacks MDRD (S/P/Bld) [Vol rate/Area] 98 mL/min/{1.73_m2} >60 [facility] Comment on above: mL/min/1.73m2 CKD-EP I Creatinine Equation (2020) Hematocrit Auto (Bld) [Volum e fraction]Ordered By: Mago Jang on 04-21-2025 Hematocrit (Bld) [Volume fraction] 49.5 % High 37-47 [facility] Hemoglobin measurementOrdere d By: Mago Jang on 04-21-2025 Hemoglobin (Bld) [Mass/Vol] 16.3 g/dL High 12.0-15.0 [facility] Immature granulocytes/100 WB C Auto (Bld)Ordered By: Mago Jang 04-21-2025 Immature granulocytes/100 WBC (Bld) 0.400 % 0.0-0.9 [facility] Comment on above: IG% - Immature Granu locytes (promyelocytes, myelocytes and metamyelocytes) > 1% indicates that a LEFT SHIFT is Present. International normalized rat io (INR) calculationOrdered By: Mago Jang on 04-21-2025 INR Coag (Bld) [Relative time] 1.0 {INR} [facility] MCV (mean corpuscular volume ) determinationOrdered By: Mago Jang on 04-21-2025 MCV (RBC) [Entitic vol] 91.0 fL 81-99 [facility] Magnesium measurement (mass/ volume)Ordered By: Mago Jang on 04-21-2025 Magnesium (Unsp spec) [Mass/Vol] 1.8 mg/dL 1.5-2.2 [facility] Mean corpuscular hemoglobin (MCH) determinationOrdered By: Mago Jang on 04-21-2025 MCH (RBC) [Entitic mass] 30.0 pg 27.0-32.0 [facility] Mean corpuscular hemoglobin concentration (MCHC) determinationOrdered By: Mago Jang on 04-21-2025 MCHC (RBC) [Mass/Vol] 32.9 g/dL 32-36 [facility] Mean platelet volume determi nationOrdered By: Mago Jang on 04-21-2025 Platelet mean volume (Bld) [Entitic vol] 12.9 fL High 6.2-12.0 [facility] Monocyte percentageOrdered B y: Mago Jang on 04-21-2025 Monocytes/100 WBC (Bld) 7.2 % 0-10 [facility] Natriuretic peptide.B prohor osbaldo N-Terminal [Mass/volume] in Serum or PlasmaOrdered By: Mago Jang on 04-21-2025 Natriuretic peptide.B prohormone N-Terminal [Mass/Vol] 1818 pg/mL High <900 [facility] Comment on above: Heart Failure Unlike ly: < 300 pg/mLHeart Failure Likely< 50 Years: > 450 pg/mL50-75 Years: > 900 pg/mL>75 Years: > 1800 pg/mL Neutrophil percentageOrdered By: Mago Jang on 04-21-2025 Neutrophils/100 WBC (Bld) 73.2 % High 47-70 [facility] Nucleated red blood cell per centageOrdered By: Mago Jang on 04-21-2025 Nucleated RBC/100 WBC (Bld) [Ratio] 0 % 0-5 [facility] Platelet countOrdered By: Tariq Jang on 04-21-2025 Platelets (Bld) [#/Vol] 237 10*3/uL 150-450 [facility] Potassium measurement (mass/ volume)Ordered By: Mago Jang on 04-21-2025 Potassium (Unsp spec) [Mass/Vol] 4.1 mmol/L 3.3-5.1 [facility] Prothrombin timeOrdered By: Mago Jang on 04-21-2025 PT Coag (PPP) [Time] 12.9 s 11.7-14.9 [facility] RBC Auto (Bld) [#/Vol]Ordere d By: Mago Jang on 04-21-2025 RBC (Bld) [#/Vol] 5.44 10*6/uL High 4.2-5.4 [facility] Serum creatinine measurement (mass/volume)Ordered By: Mago Jang on 04-21-2025 Creatinine [Mass/Vol] 0.69 mg/dL Low 0.70-1.20 [facility] Serum glucose measurement (m ass/volume)Ordered By: Mago Jang on 04-21-2025 Glucose [Mass/Vol] 320 mg/dL High 70-99 [facility] Serum or plasma calcium sylvia urement (mass/volume)Ordered By: Mago Jagn on 04-21-2025 Calcium [Mass/Vol] 9.3 mg/dL 7.6-11.0 [facility] Serum or plasma urea nitroge n measurement (mass/volume)Ordered By: Mago Jang on 04-21-2025 Urea nitrogen [Mass/Vol] 9 mg/dL 4-19 [facility] Sodium levelOrdered By: Cecilia Jang on 04-21-2025 Sodium [Moles/Vol] 135 mmol/L 133-145 [facility] Troponin T.cardiac [Mass/vol ume] in Serum or Plasma by High sensitivity methodOrdered By: Mago Jang on 04-21-2025 Troponin T.cardiac High sensitivity method [Mass/Vol] 36 ng/L High <14 [facility] Troponin T.cardiac High sensitivity method [Mass/Vol] 26 ng/L High <14 [facility] Comment on above: Delta: 142 on -2013 White blood cell (WBC) count Ordered By: Mago Jang on 04-21-2025 WBC (Bld) [#/Vol] 13.9 10*3/uL High 4.4-11.0 [facility] Cardiology Visit Reporton Cardiology Visit Report [facility] [address] [place] [address] OFFICE VISIT Date of Service: 04/13/25 MR#: [id number] Acct: [id number] Name: EAMON HUSTON Rep #: [id number] 0 : 1960 Provider: ESTEBAN parker Age/Sex: 64/F Location: [facility] Status: Signed HPI HPI History of Present Illness Surgical H P: Yes Details: This is a 64-year-old female who presents to the office today for cardiovascular hospital follow-up visit. Patient presented to the emergency room on 04/01/2025 with complaints of chest pain. She was seen by her PCP which ordered a troponin, which did come back elevated, and she was sent to the emergency room. Patient was admitted for further cardiac evaluation, and an NSTEMI was started. She underwent a cardiac catheterization on 04/02/2025 which demonstrated 95% stenosis in her mid LCx, 80% stenosis in her mid RCA, 80% stenosis in her mid LAD, and 70% stenosis in her distal LAD. She underwent successful percutaneous coronary intervention to the left circumflex, and IFR to the LAD was 0.67. She will need staged PCI to the LAD as an outpatient. Her echocardiogram demonstrated a decreased ejection fraction of 25%. From a cardiac standpoint, the patient is doing well. She does acknowledge one episode of her heart beating fast. She denies chest pain, pressure or heaviness. She denies SOB, Orthopnea, and PND. She does not have bleeding issues; no blood in urine, stool, or nosebleeds. She denies any decrease in energy level, myalgias, or claudication. She does not have edema, or sudden weight gain. She denies lightheadedness, dizziness, syncopal or near syncopal episodes, and headaches. Patient states that she has not picked up her Plavix from the pharmacy yet. Intake Vital Signs 04/02/25 03:32 04/13/25 07:26 Height 5 ft 6 in 5 ft 6 in Weight: 201 lb BMI 32.4 BP 122/78 H Blood Pressure Location Lt brachial Position Sitting Respiration 18 Pulse 79 Pulse Source Monitor Pulse Oximetry (%) 97 Intake Visit Reasons: S/P WC (04/04) Director Diabetes Required: No Is patient in pain?: No Allergies sitagliptin (From Januvia) Allergy (Severe, Verified 04/13/25 14:32) Rash Tppabsz-SOU-LbT Reductase Inhibitor (Jlelmck-Jrl-Mzq Reductase Inhibitor) Allergy (Intermediate, Verified 04/13/25 14:32) cramps dapagliflozin (From [facility]) Adverse Reaction (Severe, Verified 04/13/25 14:32) yeast Medications ???Medication ???Instructions ???Recorded ???Confirmed ???Type blood sugar diagnostic (OneTouch #100 ea 12/21/23 04/13/25 Rx Ultra Test strips) lancets 30 gauge (E-Z Ject Lancets) #100 ea 12/21/23 04/13/25 Rx digoxin 125 mcg (0.125 mg) tablet 125 mcg PO DAILY heart #30 tabs 0 03/20/25 04/13/25 Rx losartan 50 mg tablet 50 mg PO DAILY bp #30 tabs 5 04/13/25 Rx metformin 850 mg tablet 850 mg PO BID diabetes #60 tabs 04/13/25 Rx metoprolol succinate 100 mg 100 mg PO DAILY heart #30 tabs 04/13/25 Rx tablet,extended release 24 hr nitroglycerin 0.4 mg sublingual 0.4 mg sublingual Q5-15M PRN chest 03/20/25 04/13/25 Rx tablet pain #30 tabs omeprazole 40 mg capsule,delayed 40 mg PO DAILY PRN GERD #30 caps 0 03/20/25 04/13/25 Rx release aspirin 81 mg chewable tablet 81 mg PO BREAKFAST 30 days #30 tab s 04/02/25 04/13/25 Rx ezetimibe 10 mg tablet 10 mg PO DAILY 30 days #30 tabs 04/13/25 Rx furosemide 20 mg tablet 20 mg PO DAILY Swelling #30 tabs 0 7/10/25 07/21/25 Rx insulin glargine-yfgn 100 unit/mL 15 unit (0.15 mL) subcut QHS 30 0 04/02/25 04/13/25 Rx (3 mL) subcutaneous pen days #4.5 mL insulin lispro 100 unit/mL See Protocol subcut ACHS #15 mL 04/13/25 Rx subcutaneous pen (Humalog KwikPen (U-100) Insulin) rosuvastatin 20 mg tablet (Crestor) 20 mg PO DAILY 30 days #30 tabs 04/02/25 04/13/25 Rx spironolactone 25 mg tablet 12.5 mg (1/2 x 25 mg) PO DAILY 30 04/02/25 04/13/25 Rx days #15 tabs cholecalciferol (vitamin D3) 10 10 mcg PO DAILY 30 days #30 caps 0 04/13/25 04/13/25 Rx mcg (400 unit) capsule (Vitamin D3) clopidogrel 75 mg tablet (Plavix) 75 mg PO QDAY #94 tabs 04/13/25 0 04/13/25 Rx Have you fallen in the past year?: No PFSH Medical History Acute non-ST elevation myocardial infarction (NSTEMI) CAD (coronary artery disease) Congestive heart failure Arteriosclerosis of coronary artery Biventricular automatic implantable cardioverter defibrillator in situ ESBL (extended spectrum beta-lactamase) producing bacteria infection Neuropathy Myocardial infarct GERD (gastroesophageal reflux disease) Diabetes type 2, uncontrolled Hypertension Pacemaker Cardiac defibrillator in place Surgical History (Reviewed 04/14/25 @ 10:04 (more content not included)... Normal [facility] CBC W/Diff, Automatedon - Absolute Neut Normal 2.0-7.7 [facility] Comment on above: Result Comment: Canc elled via OM: Order cancelled - Patient discharged Performed By: #### L 500.4100, L500.4050, L100.0100 #### [facility] [address] [place], [place], [id number] HCT Normal 37-47 [facility] Comment on above: Result Comment: Canc elled via OM: Order cancelled - Patient discharged Performed By: #### L 500.4100, L500.4050, L100.0100 #### [facility] [address] [place], [address] HGB Normal 12.0-15.0 [facility] Comment on above: Result Comment: Canc elled via OM: Order cancelled - Patient discharged Performed By: #### L 500.4100, L500.4050, L100.0100 #### [facility] [address] [place], [address] MCH Normal 27.0-32.0 [facility] Comment on above: Result Comment: Canc elled via OM: Order cancelled - Patient discharged Performed By: #### L 500.4100, L500.4050, L100.0100 #### [facility] [address] [place], [address] MCHC Normal 32-36 [facility] Comment on above: Result Comment: Canc elled via OM: Order cancelled - Patient discharged Performed By: #### L 500.4100, L500.4050, L100.0100 #### [facility] [address] [place], [address] MCV Normal 81-99 [facility] Comment on above: Result Comment: Canc elled via OM: Order cancelled - Patient discharged Performed By: #### L 500.4100, L500.4050, L100.0100 #### [facility] [address] [place], [address] NEUT% Normal 47-70 [facility] Comment on above: Result Comment: Canc elled via OM: Order cancelled - Patient discharged Performed By: #### L 500.4100, L500.4050, L100.0100 #### [facility] [address] [place], [address] PLT Normal 150-450 [facility] Comment on above: Result Comment: Canc elled via OM: Order cancelled - Patient discharged Performed By: #### L 500.4100, L500.4050, L100.0100 #### [facility] [address] [place], [address] RBC Normal 4.2-5.4 [facility] Comment on above: Result Comment: Canc elled via OM: Order cancelled - Patient discharged Performed By: #### L 500.4100, L500.4050, L100.0100 #### [facility] [address] [place], [address] RDW CV Normal 11.6-14.6 [facility] Comment on above: Result Comment: Canc elled via OM: Order cancelled - Patient discharged Performed By: #### L 500.4100, L500.4050, L100.0100 #### [facility] [address] [place], [address] RDW SD Normal 35.1-43.9 [facility] Comment on above: Result Comment: Canc elled via OM: Order cancelled - Patient discharged Performed By: #### L 500.4100, L500.4050, L100.0100 #### [facility] [address] [place], [address] WBC Normal 4.4-11.0 [facility] Comment on above: Result Comment: Canc elled via OM: Order cancelled - Patient discharged Performed By: #### L 500.4100, L500.4050, L100.0100 #### [facility] [address] [place], [address] Comprehensive Metabolic Prof ilon 04-06-2025 ALB Normal 3.4-4.8 [facility] Comment on above: Result Comment: Canc elled via OM: Order cancelled - Patient discharged Performed By: #### L 500.4100, L500.4050, L100.0100 #### [facility] [address] [place], [address] ALK PHOS Normal 35-104 [facility] Comment on above: Result Comment: Canc elled via OM: Order cancelled - Patient discharged Performed By: #### L 500.4100, L500.4050, L100.0100 #### [facility] [address] [place], [address] ALT Normal <=34 [facility] Comment on above: Result Comment: Canc elled via OM: Order cancelled - Patient discharged Performed By: #### L 500.4100, L500.4050, L100.0100 #### [facility] [address] [place], [address] AST Normal <=31 [facility] Comment on above: Result Comment: Canc elled via OM: Order cancelled - Patient discharged Performed By: #### L 500.4100, L500.4050, L100.0100 #### [facility] [address] [place], [address] BUN Normal 4-19 [facility] Comment on above: Result Comment: Canc elled via OM: Order cancelled - Patient discharged Performed By: #### L 500.4100, L500.4050, L100.0100 #### [facility] [address] [place], [address] BUN/CRE Normal 10-20 [facility] Comment on above: Result Comment: Canc elled via OM: Order cancelled - Patient discharged Performed By: #### L 500.4100, L500.4050, L100.0100 #### [facility] [address] [place], [address] Calcium Normal 7.6-11.0 [facility] Comment on above: Result Comment: Canc elled via OM: Order cancelled - Patient discharged Performed By: #### L 500.4100, L500.4050, L100.0100 #### [facility] [address] [place], [address] CL Normal 98-108 [facility] Comment on above: Result Comment: Canc elled via OM: Order cancelled - Patient discharged Performed By: #### L 500.4100, L500.4050, L100.0100 #### [facility] [address] [place], [address] CO2 Normal 21.0-32.0 [facility] Comment on above: Result Comment: Canc elled via OM: Order cancelled - Patient discharged Performed By: #### L 500.4100, L500.4050, L100.0100 #### [facility] [address] [place], [address] CREAT,SERUM Normal 0.70-1.20 [facility] Comment on above: Result Comment: Canc elled via OM: Order cancelled - Patient discharged Performed By: #### L 500.4100, L500.4050, L100.0100 #### [facility] [address] [place], [address] eGFR Normal >60 [facility] Comment on above: Result Comment: Canc elled via OM: Order cancelled - Patient discharged Performed By: #### L 500.4100, L500.4050, L100.0100 #### [facility] [address] [place], [address] GAP Normal 5-15 [facility] Comment on above: Result Comment: Canc elled via OM: Order cancelled - Patient discharged Performed By: #### L 500.4100, L500.4050, L100.0100 #### [facility] [address] [place], [address] GLU Normal 70-99 [facility] Comment on above: Result Comment: Canc elled via OM: Order cancelled - Patient discharged Performed By: #### L 500.4100, L500.4050, L100.0100 #### [facility] [address] [place], [address] Potassium Normal 3.3-5.1 [facility] Comment on above: Result Comment: Canc elled via OM: Order cancelled - Patient discharged Performed By: #### L 500.4100, L500.4050, L100.0100 #### [facility] [address] [place], [address] T BILI Normal 0.00-1.30 [facility] Comment on above: Result Comment: Canc elled via OM: Order cancelled - Patient discharged Performed By: #### L 500.4100, L500.4050, L100.0100 #### [facility] [address] [place], [address] T PROT Normal 5.9-8.4 [facility] Comment on above: Result Comment: Canc elled via OM: Order cancelled - Patient discharged Performed By: #### L 500.4100, L500.4050, L100.0100 #### [facility] [address] [place], [address] Comprehensive Metabolic Profil Normal 133-145 [facility] Comment on above: Result Comment: Canc elled via OM: Order cancelled - Patient discharged Performed By: #### L 500.4100, L500.4050, L100.0100 #### [facility] [address] [place], [address] CBC W/Diff, Automatedon 07- Absolute Neut Normal 2.0-7.7 [facility] Comment on above: Result Comment: Canc elled via OM: Order cancelled - Patient discharged Performed By: #### L 500.4100, L500.4050, L100.0100 #### [facility] [address] [place], [address] HCT Normal 37-47 [facility] Comment on above: Result Comment: Canc elled via OM: Order cancelled - Patient discharged Performed By: #### L 500.4100, L500.4050, L100.0100 #### [facility] [address] [place], [address] HGB Normal 12.0-15.0 [facility] Comment on above: Result Comment: Canc elled via OM: Order cancelled - Patient discharged Performed By: #### L 500.4100, L500.4050, L100.0100 #### [facility] [address] [place], [address] MCH Normal 27.0-32.0 [facility] Comment on above: Result Comment: Canc elled via OM: Order cancelled - Patient discharged Performed By: #### L 500.4100, L500.4050, L100.0100 #### [facility] [address] [place], [address] MCHC Normal 32-36 [facility] Comment on above: Result Comment: Canc elled via OM: Order cancelled - Patient discharged Performed By: #### L 500.4100, L500.4050, L100.0100 #### [facility] [address] [place], [address] MCV Normal 81-99 [facility] Comment on above: Result Comment: Canc elled via OM: Order cancelled - Patient discharged Performed By: #### L 500.4100, L500.4050, L100.0100 #### [facility] [address] [place], [address] NEUT% Normal 47-70 [facility] Comment on above: Result Comment: Canc elled via OM: Order cancelled - Patient discharged Performed By: #### L 500.4100, L500.4050, L100.0100 #### [facility] [address] [place], [address] PLT Normal 150-450 [facility] Comment on above: Result Comment: Canc elled via OM: Order cancelled - Patient discharged Performed By: #### L 500.4100, L500.4050, L100.0100 #### [facility] [address] [place], [address] RBC Normal 4.2-5.4 [facility] Comment on above: Result Comment: Canc elled via OM: Order cancelled - Patient discharged Performed By: #### L 500.4100, L500.4050, L100.0100 #### [facility] [address] [place], [address] RDW CV Normal 11.6-14.6 [facility] Comment on above: Result Comment: Canc elled via OM: Order cancelled - Patient discharged Performed By: #### L 500.4100, L500.4050, L100.0100 #### [facility] [address] [place], [address] RDW SD Normal 35.1-43.9 [facility] Comment on above: Result Comment: Canc elled via OM: Order cancelled - Patient discharged Performed By: #### L 500.4100, L500.4050, L100.0100 #### [facility] [address] [place], [address] WBC Normal 4.4-11.0 [facility] Comment on above: Result Comment: Canc elled via OM: Order cancelled - Patient discharged Performed By: #### L 500.4100, L500.4050, L100.0100 #### [facility] [address] [place], [address] Comprehensive Metabolic Prof ilon 04-05-2025 ALB Normal 3.4-4.8 [facility] Comment on above: Result Comment: Canc elled via OM: Order cancelled - Patient discharged Performed By: #### L 500.4100, L500.4050, L100.0100 #### [facility] [address] [place], [address] ALK PHOS Normal 35-104 [facility] Comment on above: Result Comment: Canc elled via OM: Order cancelled - Patient discharged Performed By: #### L 500.4100, L500.4050, L100.0100 #### [facility] [address] [place], [address] ALT Normal <=34 [facility] Comment on above: Result Comment: Canc elled via OM: Order cancelled - Patient discharged Performed By: #### L 500.4100, L500.4050, L100.0100 #### [facility] [address] [place], [address] AST Normal <=31 [facility] Comment on above: Result Comment: Canc elled via OM: Order cancelled - Patient discharged Performed By: #### L 500.4100, L500.4050, L100.0100 #### [facility] [address] [place], [address] BUN Normal 4-19 [facility] Comment on above: Result Comment: Canc elled via OM: Order cancelled - Patient discharged Performed By: #### L 500.4100, L500.4050, L100.0100 #### [facility] [address] [place], [address] BUN/CRE Normal 10-20 [facility] Comment on above: Result Comment: Canc elled via OM: Order cancelled - Patient discharged Performed By: #### L 500.4100, L500.4050, L100.0100 #### [facility] [address] [place], [address] Calcium Normal 7.6-11.0 [facility] Comment on above: Result Comment: Canc elled via OM: Order cancelled - Patient discharged Performed By: #### L 500.4100, L500.4050, L100.0100 #### [facility] [address] [place], [address] CL Normal 98-108 [facility] Comment on above: Result Comment: Canc elled via OM: Order cancelled - Patient discharged Performed By: #### L 500.4100, L500.4050, L100.0100 #### [facility] [address] [place], [address] CO2 Normal 21.0-32.0 [facility] Comment on above: Result Comment: Canc elled via OM: Order cancelled - Patient discharged Performed By: #### L 500.4100, L500.4050, L100.0100 #### [facility] [address] [place], [address] CREAT,SERUM Normal 0.70-1.20 [facility] Comment on above: Result Comment: Canc elled via OM: Order cancelled - Patient discharged Performed By: #### L 500.4100, L500.4050, L100.0100 #### [facility] [address] [place], [address] eGFR Normal >60 [facility] Comment on above: Result Comment: Canc elled via OM: Order cancelled - Patient discharged Performed By: #### L 500.4100, L500.4050, L100.0100 #### [facility] [address] [place], [address] GAP Normal 5-15 [facility] Comment on above: Result Comment: Canc elled via OM: Order cancelled - Patient discharged Performed By: #### L 500.4100, L500.4050, L100.0100 #### [facility] [address] [place], [address] GLU Normal 70-99 [facility] Comment on above: Result Comment: Canc elled via OM: Order cancelled - Patient discharged Performed By: #### L 500.4100, L500.4050, L100.0100 #### [facility] [address] [place], [address] Potassium Normal 3.3-5.1 [facility] Comment on above: Result Comment: Canc elled via OM: Order cancelled - Patient discharged Performed By: #### L 500.4100, L500.4050, L100.0100 #### [facility] [address] [place], [address] T BILI Normal 0.00-1.30 [facility] Comment on above: Result Comment: Canc elled via OM: Order cancelled - Patient discharged Performed By: #### L 500.4100, L500.4050, L100.0100 #### [facility] [address] [place], [address] T PROT Normal 5.9-8.4 [facility] Comment on above: Result Comment: Canc elled via OM: Order cancelled - Patient discharged Performed By: #### L 500.4100, L500.4050, L100.0100 #### [facility] [address] [place], [address] Comprehensive Metabolic Profil Normal 133-145 [facility] Comment on above: Result Comment: Canc elled via OM: Order cancelled - Patient discharged Performed By: #### L 500.4100, L500.4050, L100.0100 #### [facility] [address] [place], [address] CBC W/Diff, Automatedon 07-1 -2024 Absolute Neut Normal 2.0-7.7 [facility] Comment on above: Result Comment: Canc elled via OM: Order cancelled - Patient discharged Performed By: #### L 500.4100, L500.4050, L100.0100 #### [facility] [address] [place], [address] HCT Normal 37-47 [facility] Comment on above: Result Comment: Canc elled via OM: Order cancelled - Patient discharged Performed By: #### L 500.4100, L500.4050, L100.0100 #### [facility] [address] [place], [address] HGB Normal 12.0-15.0 [facility] Comment on above: Result Comment: Canc elled via OM: Order cancelled - Patient discharged Performed By: #### L 500.4100, L500.4050, L100.0100 #### [facility] [address] [place], [address] MCH Normal 27.0-32.0 [facility] Comment on above: Result Comment: Canc elled via OM: Order cancelled - Patient discharged Performed By: #### L 500.4100, L500.4050, L100.0100 #### [facility] [address] [place], [address] MCHC Normal 32-36 [facility] Comment on above: Result Comment: Canc elled via OM: Order cancelled - Patient discharged Performed By: #### L 500.4100, L500.4050, L100.0100 #### [facility] [address] [place], [address] MCV Normal 81-99 [facility] Comment on above: Result Comment: Canc elled via OM: Order cancelled - Patient discharged Performed By: #### L 500.4100, L500.4050, L100.0100 #### [facility] [address] [place], [address] NEUT% Normal 47-70 [facility] Comment on above: Result Comment: Canc elled via OM: Order cancelled - Patient discharged Performed By: #### L 500.4100, L500.4050, L100.0100 #### [facility] [address] [place], [address] PLT Normal 150-450 [facility] Comment on above: Result Comment: Canc elled via OM: Order cancelled - Patient discharged Performed By: #### L 500.4100, L500.4050, L100.0100 #### [facility] [address] [place], [address] RBC Normal 4.2-5.4 [facility] Comment on above: Result Comment: Canc elled via OM: Order cancelled - Patient discharged Performed By: #### L 500.4100, L500.4050, L100.0100 #### [facility] [address] [place], [address] RDW CV Normal 11.6-14.6 [facility] Comment on above: Result Comment: Canc elled via OM: Order cancelled - Patient discharged Performed By: #### L 500.4100, L500.4050, L100.0100 #### [facility] [address] [place], [address] RDW SD Normal 35.1-43.9 [facility] Comment on above: Result Comment: Canc elled via OM: Order cancelled - Patient discharged Performed By: #### L 500.4100, L500.4050, L100.0100 #### [facility] [address] [place], [address] WBC Normal 4.4-11.0 [facility] Comment on above: Result Comment: Canc elled via OM: Order cancelled - Patient discharged Performed By: #### L 500.4100, L500.4050, L100.0100 #### [facility] [address] [place], [address] CRP, High Sensitivity [id number] on 04-04-2025 CRP, HIGH SENS 9.59 mg/L High 0.00-3.00 [facility] Comment on above: Order Comment: LOCAT ION TG73A TG75G Result Comment: Rela tive Risk for Future Cardiovascular Event Low <1.00 Average 1.00 - 3.00 High >3.00 Performed at: [facility] [id number] Environmental [employer] Program Director: Jony Fitzpatrick PhD, Phone: [phone] Performed By: #### L 3100.7870, L501.4021 ####[facility] [address] [place], [address] Comprehensive Metabolic Prof ilon 04-04-2025 ALB Normal 3.4-4.8 [facility] Comment on above: Result Comment: Canc elled via OM: Order cancelled - Patient discharged Performed By: #### L 500.4100, L500.4050, L100.0100 #### [facility] [address] [place], [address] ALK PHOS Normal 35-104 [facility] Comment on above: Result Comment: Canc elled via OM: Order cancelled - Patient discharged Performed By: #### L 500.4100, L500.4050, L100.0100 #### [facility] [address] [place], [address] ALT Normal <=34 [facility] Comment on above: Result Comment: Canc elled via OM: Order cancelled - Patient discharged Performed By: #### L 500.4100, L500.4050, L100.0100 #### [facility] [address] [place], [address] AST Normal <=31 [facility] Comment on above: Result Comment: Canc elled via OM: Order cancelled - Patient discharged Performed By: #### L 500.4100, L500.4050, L100.0100 #### [facility] [address] [place], [address] BUN Normal 4-19 [facility] Comment on above: Result Comment: Canc elled via OM: Order cancelled - Patient discharged Performed By: #### L 500.4100, L500.4050, L100.0100 #### [facility] [address] [place], [address] BUN/CRE Normal 10-20 [facility] Comment on above: Result Comment: Canc elled via OM: Order cancelled - Patient discharged Performed By: #### L 500.4100, L500.4050, L100.0100 #### [facility] [address] [place], [address] Calcium Normal 7.6-11.0 [facility] Comment on above: Result Comment: Canc elled via OM: Order cancelled - Patient discharged Performed By: #### L 500.4100, L500.4050, L100.0100 #### [facility] [address] [place], [address] CL Normal 98-108 [facility] Comment on above: Result Comment: Canc elled via OM: Order cancelled - Patient discharged Performed By: #### L 500.4100, L500.4050, L100.0100 #### [facility] [address] [place], [address] CO2 Normal 21.0-32.0 [facility] Comment on above: Result Comment: Canc elled via OM: Order cancelled - Patient discharged Performed By: #### L 500.4100, L500.4050, L100.0100 #### [facility] [address] [place], [address] CREAT,SERUM Normal 0.70-1.20 [facility] Comment on above: Result Comment: Canc elled via OM: Order cancelled - Patient discharged Performed By: #### L 500.4100, L500.4050, L100.0100 #### [facility] [address] [place], [address] eGFR Normal >60 [facility] Comment on above: Result Comment: Canc elled via OM: Order cancelled - Patient discharged Performed By: #### L 500.4100, L500.4050, L100.0100 #### [facility] [address] [place], [address] GAP Normal 5-15 [facility] Comment on above: Result Comment: Canc elled via OM: Order cancelled - Patient discharged Performed By: #### L 500.4100, L500.4050, L100.0100 #### [facility] [address] [place], [address] GLU Normal 70-99 [facility] Comment on above: Result Comment: Canc elled via OM: Order cancelled - Patient discharged Performed By: #### L 500.4100, L500.4050, L100.0100 #### [facility] [address] [place], [address] Potassium Normal 3.3-5.1 [facility] Comment on above: Result Comment: Canc elled via OM: Order cancelled - Patient discharged Performed By: #### L 500.4100, L500.4050, L100.0100 #### [facility] [address] [place], [address] T BILI Normal 0.00-1.30 [facility] Comment on above: Result Comment: Canc elled via OM: Order cancelled - Patient discharged Performed By: #### L 500.4100, L500.4050, L100.0100 #### [facility] [address] [place], [address] T PROT Normal 5.9-8.4 [facility] Comment on above: Result Comment: Canc elled via OM: Order cancelled - Patient discharged Performed By: #### L 500.4100, L500.4050, L100.0100 #### [facility] [address] [place], [address] Comprehensive Metabolic Profil Normal 133-145 [facility] Comment on above: Result Comment: Canc elled via OM: Order cancelled - Patient discharged Performed By: #### L 500.4100, L500.4050, L100.0100 #### [facility] [address] [place], [address] Absolute lymphocyte countOrd ered By: Amaris Patricia on 04-03-2025 Lymphocytes Auto (Unsp spec) [#/Vol] 2.04 10*3/uL 0.83-4.51 [facility] Absolute neutrophil countOrd ered By: [facility] Patricia on 04-03-2025 Neutrophils (Bld) [#/Vol] 3.1 10*3/uL 2.0-7.7 [facility] Anion gap in Serum or Plasma Ordered By: [facility] Patricia on 04-03-2025 Anion gap [Moles/Vol] 12 mmol/L 5-15 [facility] Automated lymphocyte count a s percentage of total leukocytesOrdered By: Amaris Patricia on 04-03-2025 Lymphocytes/100 WBC Auto (Unsp spec) 34.3 % 19-41 [facility] BUN/creatinine ratioOrdered By: Amaris Patricia on 04-03-2025 Urea nitrogen/Creatinine [Mass ratio] 25.0 mg/mg High 10-20 [facility] Basophil percentageOrdered B y: Amaris Patricia on 04-03-2025 Basophils/100 WBC (Bld) 1.0 % 0-1 [facility] Bedside Glucoseon 04-03-2025 FINGER[place]ICK GLU 231 mg/dL High 74-106 [facility] Comment on above: Result Comment: [place] OF PATIENT CARE PER NURSING PROTOCOL Performed By: #### L 500.4100, L500.4050, L100.0100 #### [facility] [address] [place], [address] Bilirubin, totalOrdered By: Amaris Gomez on 04-03-2025 Bilirubin [Mass/Vol] 0.59 mg/dL 0.00-1.30 [facility] CBC W/Diff, Automatedon 03-24 Absolute Lymph 2.04 X10 3/uL Normal 0.83-4.51 [facility] Comment on above: Performed By: #### L 500.4100, L500.4050, L100.0100 #### [facility] [address] [place], [address] Absolute Neut 3.1 X10 3/uL Normal 2.0-7.7 [facility] Comment on above: Performed By: #### L 500.4100, L500.4050, L100.0100 #### [facility] [address] [place], [address] Basophils/100 WBC (Bld) 1.0 % Normal 0-1 [facility] Comment on above: Performed By: #### L 500.4100, L500.4050, L100.0100 #### [facility] [address] [place], [address] Eosinophils/100 WBC (Bld) 1.2 % Normal 0-5 [facility] Comment on above: Performed By: #### L 500.4100, L500.4050, L100.0100 #### [facility] [address] [place], [address] Erythrocyte distribution width (RBC) [Ratio] 14.2 % Normal 11.6-14.6 [facility] Comment on above: Performed By: #### L 500.4100, L500.4050, L100.0100 #### [facility] [address] [place], [address] Hematocrit (Bld) [Volume fraction] 42.3 % Normal 37-47 [facility] Comment on above: Performed By: #### L 500.4100, L500.4050, L100.0100 #### [facility] [address] [place], [address] Hemoglobin (Bld) [Mass/Vol] 13.9 g/dL Normal 12.0-15.0 [facility] Comment on above: Performed By: #### L 500.4100, L500.4050, L100.0100 #### [facility] [address] [place], [address] IG% 0.200 Normal 0.0-0.9 [facility] Comment on above: Result Comment: IG% - Immature Granulocytes (promyelocytes, myelocytes and metamyelocytes) > 1% indicates that a LEFT SHIFT is Present. Performed By: #### L 500.4100, L500.4050, L100.0100 #### [facility] [address] [place], [address] Lymphocytes/100 WBC (Bld) 34.3 % Normal 19-41 [facility] Comment on above: Performed By: #### L 500.4100, L500.4050, L100.0100 #### [facility] [address] [place], [address] MCH (RBC) [Entitic mass] 30.2 pg Normal 27.0-32.0 [facility] Comment on above: Performed By: #### L 500.4100, L500.4050, L100.0100 #### [facility] [address] [place], [address] MCHC (RBC) [Mass/Vol] 32.9 g/dL Normal 32-36 [facility] Comment on above: Performed By: #### L 500.4100, L500.4050, L100.0100 #### [facility] [address] [place], [address] MCV (RBC) [Entitic vol] 91.8 fL Normal 81-99 [facility] Comment on above: Performed By: #### L 500.4100, L500.4050, L100.0100 #### [facility] [address] [place], [address] Monocytes/100 WBC (Bld) 11.9 % High 0-10 [facility] Comment on above: Performed By: #### L 500.4100, L500.4050, L100.0100 #### [facility] [address] [place], [address] Neutrophils/100 WBC (Bld) 51.4 % Normal 47-70 [facility] Comment on above: Performed By: #### L 500.4100, L500.4050, L100.0100 #### [facility] [address] [place], [address] Nucleated RBC (Bld) [#/Vol] 0 10*3/uL Normal 0-5 [facility] Comment on above: Performed By: #### L 500.4100, L500.4050, L100.0100 #### [facility] [address] [place], [address] Platelet mean volume (Bld) [Entitic vol] 12.8 fL High 6.2-12.0 [facility] Comment on above: Performed By: #### L 500.4100, L500.4050, L100.0100 #### [facility] [address] [place], [address] Platelets (Bld) [#/Vol] 206 10*3/uL Normal 150-450 [facility] Comment on above: Performed By: #### L 500.4100, L500.4050, L100.0100 #### [facility] [address] [place], [address] RBC (Bld) [#/Vol] 4.61 10*6/uL Normal 4.2-5.4 [facility] Comment on above: Performed By: #### L 500.4100, L500.4050, L100.0100 #### [facility] [address] [place], [address] RDW SD 47.4 fl High 35.1-43.9 [facility] Comment on above: Performed By: #### L 500.4100, L500.4050, L100.0100 #### [facility] [address] [place], [address] WBC (Bld) [#/Vol] 6.0 10*3/uL Normal 4.4-11.0 [facility] Comment on above: Performed By: #### L 500.4100, L500.4050, L100.0100 #### [facility] [address] [place], [address] Calculated very low density lipoprotein (VLDL) cholesterol measurementOrdered By: Amaris Gomez on 04-03-2025 Calculated very low density lipoprotein (VLDL) cholesterol measurement 67 mg/dL High 5-40 [facility] Carbon dioxide, total [Moles /volume] in Central venous bloodOrdered By: Amaris Gomez on 04-03-2025 CO2 [Moles/Vol] 22.5 mmol/L 21.0-32.0 [facility] Chloride assayOrdered By: Stephany Gomez on 04-03-2025 Chloride [Moles/Vol] 103 mmol/L 98-108 [facility] Comprehensive Metabolic Prof ilon 04-03-2025 Albumin [Mass/Vol] 3.8 g/dL Normal 3.4-4.8 [facility] Comment on above: Performed By: #### L 500.4100, L500.4050, L100.0100 #### [facility] [address] [place], [address] Albumin/Globulin [Mass ratio] 1.5 {ratio} Normal 0.9-2.4 [facility] Comment on above: Performed By: #### L 500.4100, L500.4050, L100.0100 #### [facility] [address] [place], [address] ALK PHOS 127 U/L High 35-104 [facility] Comment on above: Performed By: #### L 500.4100, L500.4050, L100.0100 #### [facility] [address] [place], [address] ALT [Catalytic activity/Vol] 57 U/L High <=34 [facility] Comment on above: Performed By: #### L 500.4100, L500.4050, L100.0100 #### [facility] [address] [place], [address] AST [Catalytic activity/Vol] 26 U/L Normal <=31 [facility] Comment on above: Performed By: #### L 500.4100, L500.4050, L100.0100 #### [facility] [address] [place], [address] Bilirubin [Mass/Vol] 0.59 mg/dL Normal 0.00-1.30 [facility] Comment on above: Performed By: #### L 500.4100, L500.4050, L100.0100 #### [facility] [address] [place], [address] BUN/CRE 25.0 RATIO High 10-20 [facility] Comment on above: Performed By: #### L 500.4100, L500.4050, L100.0100 #### [facility] [address] [place], [address] Calcium [Mass/Vol] 9.1 mg/dL Normal 7.6-11.0 [facility] Comment on above: Performed By: #### L 500.4100, L500.4050, L100.0100 #### [facility] [address] [place], [address] Chloride [Moles/Vol] 103 mmol/L Normal 98-108 [facility] Comment on above: Performed By: #### L 500.4100, L500.4050, L100.0100 #### [facility] [address] [place], [address] CO2 [Moles/Vol] 22.5 mmol/L Normal 21.0-32.0 [facility] Comment on above: Performed By: #### L 500.4100, L500.4050, L100.0100 #### [facility] [address] [place], [address] Creatinine [Mass/Vol] 0.54 mg/dL Low 0.70-1.20 [facility] Comment on above: Performed By: #### L 500.4100, L500.4050, L100.0100 #### [facility] [address] [place], [address] ECRCL 124.11 ml/min Normal 50-250 [facility] Comment on above: Performed By: #### L 500.4100, L500.4050, L100.0100 #### [facility] [address] [place], [address] GAP 12 Normal 5-15 [facility] Comment on above: Performed By: #### L 500.4100, L500.4050, L100.0100 #### [facility] [address] [place], [address] GFR/1.73 sq M.predicted among non-blacks MDRD (S/P/Bld) [Vol rate/Area] 104 mL/min/{1.73_m2} Normal >60 [facility] Comment on above: Result Comment: mL/m in/1.73m2 CKD-EPI Creatinine Equation (2020) Performed By: #### L 500.4100, L500.4050, L100.0100 #### [facility] [address] [place], [address] Globulin (S) [Mass/Vol] 2.6 g/dL Normal 2.2-4.2 [facility] Comment on above: Performed By: #### L 500.4100, L500.4050, L100.0100 #### [facility] [address] [place], [address] Glucose [Mass/Vol] 250 mg/dL High 70-99 [facility] Comment on above: Performed By: #### L 500.4100, L500.4050, L100.0100 #### [facility] [address] [place], [address] Potassium [Moles/Vol] 3.8 mmol/L Normal 3.3-5.1 [facility] Comment on above: Performed By: #### L 500.4100, L500.4050, L100.0100 #### [facility] [address] [place], [address] Sodium [Moles/Vol] 137 mmol/L Normal 133-145 [facility] Comment on above: Performed By: #### L 500.4100, L500.4050, L100.0100 #### [facility] [address] [place], [address] T PROT 6.4 g/dL Normal 5.9-8.4 [facility] Comment on above: Performed By: #### L 500.4100, L500.4050, L100.0100 #### [facility] [address] [place], [address] Urea nitrogen [Mass/Vol] 13 mg/dL Normal 4-19 [facility] Comment on above: Performed By: #### L 500.4100, L500.4050, L100.0100 #### [facility] [address] [place], [address] Discharge Instructionon 03-24 Discharge Instruction [facility] Medical Records Department [address] [place] [address] Instructions for Home/Discharge Instructions 04/03/25718 MR#: [id number] Acct: [id number] Name: EAMON HUSTON Rep #: [id number] : 1960 64 From: Amaris Gomez MD PCP: Naima Garcia NP-C Status:ADM IN Discharge Instructions Diet Discharge Diet: Low fat / Low cholesterol and 1800 Calorie Control Diet DC O2, CPAP, BIPAP needs Home O2 Discharge instructions: No Dressing / Incision Discharge Activity: - (See detailed instructions on plan sheet.) May resume sexual activity in: - (Defer until re-evaluation per Cardiology at follow-up.) Weight Bearing Status: Weight bearing as tolerated Dressing / Incision Call your doctor if your incision/area has: Continuous Slow Oozing, Sudden Increased Bleeding, Increased Pain/ Swelling, Increased Redness, Foul Smelling Discharge and Swelling at the incision site Call your doctor if you observe: Fever of 101 or Higher, Shortness of breath, Dizziness, Swelling in the ankles, Chest pain, Increased palpitations (irregular heartbeat), Calf discomfort and Uncontrolled pain Follow Up Care Test Results: Test results from this visit will be discussed in further detail at your follow-up appointment, if applicable. Discharge Plan Admission Admit Date/Time: 04/02/25 00:02 Primary Reason for Your Visit: NSTEMI w/ CAD w/ stenoses requiring PCI intervention, HFrEF Exacerbation Attending Provider: Amaris Gomez Primary Care Provider: Naima Garcia NP Consulting Providers: Franko Cueto; Mino Zhang Instructions Patient Instructions: Heart Failure Meds, Heart Failure Flare Up Signs, Coping with Heart Failure, Heart Failure Dc, PCI Blood Thinners, PCI Follow Up, PCI Lifestyle Changes Additional Instructions / Restrictions: ADDITIONAL DISCHARGE INSTRUCTIONS/FOLLOW- UP: Acute NSTEMI (heart attack) w/ CAD s/p prior PCI history requiring PCI intervention during admission with Acute on Chronic Mild HFrEF Exacerbation: --Cardiac troponin enzyme trend series elevated but trended downward 152 > 142 > 127 > 132. --ED presentation EKG with sinus tachycardia with frequent PAC/PVC with nonspecific interventricular block and T wave abnormalities. --NT-proBNP 1180. --ED Chest x-ray showed cardiomegaly with vascular congestion. --FLP with triglyceride 316, total cholesterol 220, LDL 125, VLDL 63, HDL 32 --04/02/25 ECHO w/ Severe global LV systolic dysfunction, LVEF 25%, focal and global wall motion abnormality, evidence diastolic dysfunction, moderate pulmonary hypertension, severely dilated LV with most recent records prior to this from clinic seeing with an echocardiogram in 2017 with EF 35% at that time. --04/02/25 Cardiac catheterization with significantly stenosed circumflex with MORGAN/PCI performed with also stenosis in the LAD; however, not able to perform PCI secondary to radial approach with plan for medical management. --Per cardiology direction you have been initiated on continue baby aspirin, Plavix Zetia, mid dose Crestor which although it is a statin therapy can often have less side effects than others with preference for at least a trial per cardiology, low-dose spironolactone in addition to continued home dosing of metoprolol and losartan. Given the addition of spironolactone please have follow-up blood pressure check with primary care physician and if your systolic blood pressure is less than 110 preferentially hold temporarily the spironolactone until follow-up with cardiology but please notify their office of these results when it occurs. --Please have repeat basic metabolic panel at follow-up with your primary care physician. --Please perform daily weight checks using the same machine and if your weight increases by > 5 lbs please notify your cardiology office immediately to review possible diuretic change options. Diabetes mellitus type II, poorly controlled with hyperglycemia: --During the admission you had notably elevated blood sugars with poorly controlled underlying diabetes with recent hemoglobin A1c noted to be 11.7%. At this time during admission you had significantly elevated blood sugars therefore we recommend you continue the oral diabetic regimen but at the same time given the levels and your presentation with worsening coronary disease requiring percutaneous intervention you have been initiated on once daily long-acting in addition to recommended insulin sliding scale. We strongly encourage continued diet and lifestyle changes in addition to these medication changes. We have referred you also to endocrinology. CARDIOLOGY PCI POST-CATHETERIZATION INSTRUCTIONS: Lifting: Must be less than 5 lbs for 5 days, No restrictions after 14 days Shower: Yes Climb stairs: Yes Bathing in tub or submerged water: No, until cleared per Cardiology at follow-up (call (more content not included)... Normal [facility] Eosinophil percentageOrdered By: Amaris Gomez on 04-03-2025 Eosinophils/100 WBC (Bld) 1.2 % 0-5 [facility] Erythrocyte distribution wid th ratioOrdered By: Amaris Gomez on 04-03-2025 Erythrocyte distribution width (RBC) [Ratio] 14.2 % 11.6-14.6 [facility] Erythrocyte distribution wid th standard deviationOrdered By: Amaris Gomez on 04-03-2025 Erythrocyte distribution width (RBC) [Ratio] 47.4 fl High 35.1-43.9 [facility] Glomerular filtration rate ( GFR) estimation/1.73 sq m using serum, plasma, or whole bOrdered By: Amaris Gomez on 04-03-2025 GFR/1.73 sq M.predicted among non-blacks MDRD (S/P/Bld) [Vol rate/Area] 104 mL/min/{1.73_m2} >60 [facility] Comment on above: mL/min/1.73m2 CKD-EP I Creatinine Equation (2020) [facility] deOrdered By: Amaris Gomez on 04-03-2025 Glucose [Mass/Vol] 231 mg/dL High 74-106 [facility] Comment on above: MANAGEMENT OF PATIEN T CARE PER NURSING PROTOCOL Hematocrit Auto (Bld) [Volum e fraction]Ordered By: Amaris Gomez on 04-03-2025 Hematocrit (Bld) [Volume fraction] 42.3 % 37-47 [facility] Hemoglobin measurementOrdere d By: Amaris Gomez on 04-03-2025 Hemoglobin (Bld) [Mass/Vol] 13.9 g/dL 12.0-15.0 [facility] Immature granulocytes/100 WB C Auto (Bld)Ordered By: Amaris Gomez on 04-03-2025 Immature granulocytes/100 WBC (Bld) 0.200 % 0.0-0.9 [facility] Comment on above: IG% - Immature Granu locytes (promyelocytes, myelocytes and metamyelocytes) > 1% indicates that a LEFT SHIFT is Present. LDL calc ser/plasOrdered By: Amaris Gomez on 04-03-2025 Cholesterol in LDL [Mass/Vol] 123 mg/dL [facility] Comment on above: Mrcocphaqd=871-361 m g/dL & Higher Gobe=655 mg/dL or greater Laboratory - Chemistry and C hemistry - challengeOrdered By: Amaris Gomez on 04-03-2025 AST [Catalytic activity/Vol] 26 U/L <32 [facility] Lipid Profileon 04-03-2025 CHOL:HDL 7.87 Normal [facility] Comment on above: Performed By: #### L 500.4100, L500.4050, L100.0100 #### [facility] [address] [place], [address] Cholesterol [Mass/Vol] 218 mg/dL High <=200 [facility] Comment on above: Result Comment: Chol esterol level, Desirable <200 mg/dL Borderline high cholesterol 200-239 mg/dL High cholesterol >=240 mg/dL Recommendations of the NCEP Adult Treatment Panel for the following risk-cutoff thresholds for the [place] population. Performed By: #### L 500.4100, L500.4050, L100.0100 #### [facility] [address] [place], [address] Cholesterol in HDL [Mass/Vol] 28 mg/dL Low [facility] Comment on above: Result Comment: [place]ule[place] onal Cholesterol Education Program (NCEP) guidelines: <40 mg/dL: Low HDL-cholesterol (major risk factor for CHD) >= 60 mg/dL: High HDL-cholesterol (negative risk factor for CHD) HDL-cholesterol is affected by a number of factors, e.g. smoking, exercise, hormones, sex and age. Performed By: #### L 500.4100, L500.4050, L100.0100 #### [facility] [address] [place], [address] Cholesterol in LDL [Mass/Vol] 123 mg/dL Normal [facility] Comment on above: Result Comment: Bord szrxuu=081-309 mg/dL Higher Qlny=706 mg/dL or greater Performed By: #### L 500.4100, L500.4050, L100.0100 #### [facility] [address] [place], [address] Cholesterol in VLDL [Mass/Vol] 67 mg/dL High 5-40 [facility] Comment on above: Performed By: #### L 500.4100, L500.4050, L100.0100 #### [facility] [address] [place], [address] Triglyceride [Mass/Vol] 335 mg/dL High [facility] Comment on above: Result Comment: The drugs N-Acetylcysteine and Metamizole may falsely depress this assay. Normal range: <150 mg/dL Borderline High: 150-199 mg/dL High: 200-499 mg/dL Very High: >500 mg/dL Performed By: #### L 500.4100, L500.4050, L100.0100 #### [facility] [address] [place], [address] MCV (mean corpuscular volume ) determinationOrdered By: Amaris Gomez on 04-03-2025 MCV (RBC) [Entitic vol] 91.8 fL 81-99 [facility] Magnesiumon 04-03-2025 Magnesium [Mass/Vol] 2.0 mg/dL Normal 1.5-2.2 [facility] Comment on above: Performed By: #### L 501.2300, L501.5200 ####[facility] [address] [place], [address] Magnesium measurement (mass/ volume)Ordered By: Franko Cueto on 04-03-2025 Magnesium (Unsp spec) [Mass/Vol] 2.0 mg/dL 1.5-2.2 [facility] Mean corpuscular hemoglobin (MCH) determinationOrdered By: Amaris Gomez on 04-03-2025 MCH (RBC) [Entitic mass] 30.2 pg 27.0-32.0 [facility] Mean corpuscular hemoglobin concentration (MCHC) determinationOrdered By: Amaris Gomez on 04-03-2025 MCHC (RBC) [Mass/Vol] 32.9 g/dL 32-36 [facility] Mean platelet volume determi nationOrdered By: Amaris White on 04-03-2025 Platelet mean volume (Bld) [Entitic vol] 12.8 fL High 6.2-12.0 [facility] Monocyte percentageOrdered B y: White on 04-03-2025 Monocytes/100 WBC (Bld) 11.9 % High 0-10 [facility] Neutrophil percentageOrdered By: White on 04-03-2025 Neutrophils/100 WBC (Bld) 51.4 % 47-70 [facility] Nucleated red blood cell per centageOrdered By: White on 04-03-2025 Nucleated RBC/100 WBC (Bld) [Ratio] 0 % 0-5 [facility] Phosphoruson 04-03-2025 Phosphate [Mass/Vol] 4.2 mg/dL Normal 2.7-4.5 [facility] Comment on above: Performed By: #### L 501.2300, L501.5200 ####[facility] [address] [place], [address] Platelet countOrdered By: Stephany antunez Patricia on 04-03-2025 Platelets (Bld) [#/Vol] 206 10*3/uL 150-450 [facility] Potassium measurement (mass/ volume)Ordered By: Amaris Gomez on 04-03-2025 Potassium (Unsp spec) [Mass/Vol] 3.8 mmol/L 3.3-5.1 [facility] RBC Auto (Bld) [#/Vol]Ordere d By: Amaris Gomez on 04-03-2025 RBC (Bld) [#/Vol] 4.61 10*6/uL 4.2-5.4 [facility] Screening total cholesterol/ high density lipoprotein (HDL) cholesterol ratioOrdered By: Amaris Gomez on 04-03-2025 Cholesterol.total/Michelle sterol in HDL [Mass ratio] 7.87 {ratio} [facility] Serum creatinine measurement (mass/volume)Ordered By: Amaris Gomez on 04-03-2025 Creatinine [Mass/Vol] 0.54 mg/dL Low 0.70-1.20 [facility] Serum globulin measurementOr dered By: Amaris Gomez on 04-03-2025 Globulin (S) [Mass/Vol] 2.6 g/dL 2.2-4.2 [facility] Serum glucose measurement (m ass/volume)Ordered By: Amaris Gomez on 04-03-2025 Glucose [Mass/Vol] 250 mg/dL High 70-99 [facility] Serum or plasma alanine lamb otransferase (ALT) measurementOrdered By: Amaris Gomez on 04-03-2025 ALT [Catalytic activity/Vol] 57 U/L High <35 [facility] Serum or plasma albumin sylvia urement (mass/volume)Ordered By: Amaris Gomez on 04-03-2025 Albumin [Mass/Vol] 3.8 g/dL 3.4-4.8 [facility] Serum or plasma albumin/glob ulin mass ratioOrdered By: Amaris Gomez on 04-03-2025 Albumin/Globulin [Mass ratio] 1.5 {ratio} 0.9-2.4 [facility] Serum or plasma alkaline cydney sphatase measurementOrdered By: Amaris Gomez 04-03-2025 ALP [Catalytic activity/Vol] 127 U/L High 35-104 [facility] Serum or plasma calcium sylvia urement (mass/volume)Ordered By: Amaris Gomez 04-03-2025 Calcium [Mass/Vol] 9.1 mg/dL 7.6-11.0 [facility] Serum or plasma cholesterol in HDL measurement (mass/volume)Ordered By: Amaris Gomez on 04-03-2025 Cholesterol in HDL [Mass/Vol] 28 mg/dL Low >40 [facility] Comment on above: National Cholesterol Education Program (NCEP) guidelines:<40 mg/dL: Low HDL-cholesterol (major risk factor for CHD)>= 60 mg/dL: High HDL-cholesterol (negative risk factor for CHD)HDL-cholesterol is affected by a number of factors, e.g. smoking, exercise, hormones, sex and age. Serum or plasma cholesterol measurement (mass/volume)Ordered By: Amaris Gomez on 04-03-2025 Cholesterol [Mass/Vol] 218 mg/dL High <201 [facility] Comment on above: Cholesterol level, D esirable <200 mg/dLBorderline high cholesterol 200-239 mg/dLHigh cholesterol >=240 mg/dLRecommendations of the NCEP Adult Treatment Panel for the following risk-cutoff thresholds for the [place] population. Serum or plasma urea nitroge n measurement (mass/volume)Ordered By: Amaris Gomez on 04-03-2025 Urea nitrogen [Mass/Vol] 13 mg/dL 4-19 [facility] Sodium levelOrdered By: Darrell mn White on 04-03-2025 Sodium [Moles/Vol] 137 mmol/L 133-145 [facility] Total proteinOrdered By: Hilda umn Patricia on 04-03-2025 Protein [Mass/Vol] 6.4 g/dL 5.9-8.4 [facility] Triglycerides measurementOrd ered By: Amaris Gomez on 04-03-2025 Triglyceride [Mass/Vol] 335 mg/dL High <199 [facility] Comment on above: The drugs N-Acetylcy steine and Metamizole may falsely depress this assay. Normal range: <150 mg/dLBorderline High: 150-199 mg/dLHigh: 200-499 mg/dLVery High: >500 mg/dL White blood cell (WBC) count Ordered By: Amaris Gomez on 04-03-2025 WBC (Bld) [#/Vol] 6.0 10*3/uL 4.4-11.0 [facility] ACT Activated Clotting Timeo n 04-02-2025 ACTk CLOT TIME 377 sec High 74-137 [facility] Comment on above: Performed By: #### L 500.4100, L500.4050, L100.0100 #### [facility] [address] [place], [address] ACTk CLOT TIME 187 sec High 74-137 [facility] Comment on above: Performed By: #### L 500.4100, L500.4050, L100.0100 #### [facility] [address] [place], [address] Activated partial thrombopla stin time (aPTT) in platelet poor plasma by coagulation aOrdered By: Franko Cueto on 04-02-2025 aPTT Coag (PPP) [Time] 35.9 s 24.1-36.2 [facility] Anion gap in Serum or Plasma Ordered By: Franko Cueto on 04-02-2025 Anion gap [Moles/Vol] 13 mmol/L 5-15 [facility] BUN/creatinine ratioOrdered By: Franko Cueto on 04-02-2025 Urea nitrogen/Creatinine [Mass ratio] 21.7 mg/mg High 07-13 [facility] Basic Metabolic Profile (BMP )on 04-02-2025 BUN/CRE 21.7 RATIO High 07-13 [facility] Comment on above: Performed By: #### L 500.4100, L500.4050, L100.0100 #### [facility] [address] [place], [address] Calcium [Mass/Vol] 9.2 mg/dL Normal 7.6-11.0 [facility] Comment on above: Performed By: #### L 500.4100, L500.4050, L100.0100 #### [facility] [address] [place], [address] Chloride [Moles/Vol] 103 mmol/L Normal 98-108 [facility] Comment on above: Performed By: #### L 500.4100, L500.4050, L100.0100 #### [facility] [address] [place], [address] CO2 [Moles/Vol] 21.2 mmol/L Normal 21.0-32.0 [facility] Comment on above: Performed By: #### L 500.4100, L500.4050, L100.0100 #### [facility] [address] [place], [address] Creatinine [Mass/Vol] 0.57 mg/dL Low 0.70-1.20 [facility] Comment on above: Performed By: #### L 500.4100, L500.4050, L100.0100 #### [facility] [address] [place], [address] ECRCL 115.12 ml/min Normal 50-250 [facility] Comment on above: Performed By: #### L 500.4100, L500.4050, L100.0100 #### [facility] [address] [place], [address] GAP 13 Normal 5-15 [facility] Comment on above: Performed By: #### L 500.4100, L500.4050, L100.0100 #### [facility] [address] [place], [address] GFR/1.73 sq M.predicted among non-blacks MDRD (S/P/Bld) [Vol rate/Area] 103 mL/min/{1.73_m2} Normal >60 [facility] Comment on above: Result Comment: mL/m in/1.73m2 CKD-EPI Creatinine Equation (2020) Performed By: #### L 500.4100, L500.4050, L100.0100 #### [facility] [address] [place], [address] Glucose [Mass/Vol] 253 mg/dL High 70-99 [facility] Comment on above: Performed By: #### L 500.4100, L500.4050, L100.0100 #### [facility] [address] [place], [address] Potassium [Moles/Vol] 3.9 mmol/L Normal 3.3-5.1 [facility] Comment on above: Performed By: #### L 500.4100, L500.4050, L100.0100 #### [facility] [address] [place], [address] Sodium [Moles/Vol] 137 mmol/L Normal 133-145 [facility] Comment on above: Performed By: #### L 500.4100, L500.4050, L100.0100 #### [facility] [address] [place], [address] Urea nitrogen [Mass/Vol] 12 mg/dL Normal 4-19 [facility] Comment on above: Performed By: #### L 500.4100, L500.4050, L100.0100 #### [facility] [address] [place], [address] Bedside Glucoseon 04-02-2025 FINGERSTICK GLU 303 mg/dL High [address] [place] [address] Comment on above: Result Comment: [place] GEMENT OF PATIENT CARE PER NURSING PROTOCOL Performed By: #### L 500.4100, L500.4050, L100.0100 #### [facility] [address] [place], [address] FINGERSTICK GLU 289 mg/dL High [address] [place] [address] Comment on above: Result Comment: [place] GEMENT OF PATIENT CARE PER NURSING PROTOCOL Performed By: #### L 501.080 ####[facility] [address] [place], [address] FINGERSTICK GLU 237 mg/dL High [address] [place] [address] Comment on above: Result Comment: [place] GEMENT OF PATIENT CARE PER NURSING PROTOCOL Performed By: #### L 500.4100, L500.4050, L100.0100 #### [facility] [address] [place], [address] FINGERSTICK GLU 249 mg/dL High [address] [place] [address] Comment on above: Result Comment: [place] GEMENT OF PATIENT CARE PER NURSING PROTOCOL Performed By: #### L 500.4100, L500.4050, L100.0100 #### [facility] [address] [place], [address] FINGERSTICK GLU 391 mg/dL High [address] [place] [address] Comment on above: Result Comment: [place] GEMENT OF PATIENT CARE PER NURSING PROTOCOL Performed By: #### L 500.4100, L500.4050, L100.0100 #### [facility] [address] [place], [address] CBC-Complete Blood Cnt No Di ffon 04-02-2025 Erythrocyte distribution width (RBC) [Ratio] 14.1 % Normal 11.6-14.6 [facility] Comment on above: Performed By: #### L 500.2500, L100.0500 ####[facility] [address] [place], [address] Hematocrit (Bld) [Volume fraction] 42.6 % Normal 37-47 [facility] Comment on above: Performed By: #### L 500.2500, L100.0500 ####[facility] [address] [place], [address] Hemoglobin (Bld) [Mass/Vol] 13.9 g/dL Normal 12.0-15.0 [facility] Comment on above: Performed By: #### L 500.2500, L100.0500 ####[facility] [address] [place], [address] MCH (RBC) [Entitic mass] 30.1 pg Normal 27.0-32.0 [facility] Comment on above: Performed By: #### L 500.2500, L100.0500 ####[facility] [address] [place], [address] MCHC (RBC) [Mass/Vol] 32.6 g/dL Normal 32-36 [facility] Comment on above: Performed By: #### L 500.2500, L100.0500 ####[facility] [address] [place], [address] MCV (RBC) [Entitic vol] 92.2 fL Normal 81-99 [facility] Comment on above: Performed By: #### L 500.2500, L100.0500 ####[facility] [address], [address] Platelet mean volume (Bld) [Entitic vol] 13.0 fL High 6.2-12.0 [facility] Comment on above: Performed By: #### L 500.2500, L100.0500 ####[facility] [address] [place], [address] Platelets (Bld) [#/Vol] 211 10*3/uL Normal 150-450 [facility] Comment on above: Performed By: #### L 500.2500, L100.0500 ####[facility] [address] [place], [address] RBC (Bld) [#/Vol] 4.62 10*6/uL Normal 4.2-5.4 [facility] Comment on above: Performed By: #### L 500.2500, L100.0500 ####[facility] [address] [place], [address] RDW SD 47.4 fl High 35.1-43.9 [facility] Comment on above: Performed By: #### L 500.2500, L100.0500 ####[facility] [address] [place], [address] WBC (Bld) [#/Vol] 7.4 10*3/uL Normal 4.4-11.0 [facility] Comment on above: Performed By: #### L 500.2500, L100.0500 ####[facility] [address] [place], [address] CVS/PCIREPORTon 04-02-2025 CVS/PCIREPORT [facility] [address] [place] [address] MR#: [id number] Acct: [id number] Name: EAMON HUSTON Rep #: [id number] : 1960 64 From: Kalen Edwards MD Primary Care: ESTEBAN Castellanos Status: ADM IN Referring Dr: Sex: F C PCI Cardiac Cath Report PCI Report: DATE OF PROCEDURE: April 02, 2025 PROCEDURES PERFORMED: 1. Selective left and right coronary angiography. 2. Moderate conscious sedation 3. Percutaneous coronary intervention to left circumflex 4. IFR to LAD Indications FOR PROCEDURE: NSTEMI Complications: NONE Specimen: NONE Access: Right Radial Artery Hemostasis: TR band DESCRIPTION OF PROCEDURE: After informed consent was obtained, the patient was brought down to the manager cardiac cath in a fasting state. Right wrist area was prepped, draped and sterilized in the usual fashion. Moderate conscious sedation, administration, documentation and physiologic monitoring of the IV conscious sedation was performed under my direct supervision by a trained registered nurse. Intraservice time started at 12:22 and ended at 13:06 Using modified Seldinger technique, right radial artery was then cannulated. A 6-Icelandic sheath was inserted, sheath was flushed. 4F JR4 catheter was used to engage the right coronary and 5f JL-4 catheter was used to engage Left coronary artery. Multiple orthogonal images were then taken. Aortic valve was not crossed due to the concern of LV mass. After reviewing angiogram,we decided to intervene on LCX. LCX: Using 6 Fr EBU 3.5, LCX was wired then 2.5x12 NC was used to dilate the lesion then 3.0x26 [place] stent was deployed at 12 lis and post dialted using 3.5mm NC. Final angiogram showed normal flow, no dissection. GILSON flow pre: 2 GILSON flow post :3 Lesion severity before PCI: 95% Lesion severity after PCI: 0% Then we did IFR to the LAD and it resulted at 0.67. Wire and catheter were taken out. TR band was applied. The patient was sent to floor in stable condition. HEMODYNAMICS: LVEDP 18 DESCRIPTION OF CORONARY ANATOMY: The left main originates from the left coronary sinus of Valsalva in the usual fashion. There was good reflux of dye from this vessel into the coronary sinus, there was no ventriculization or dampening of pressure noted. The LM bifurcates into LAD and LCX . It has no significant CAD noted. The left anterior descending artery originates from the left main in the usual fashion. It runs in the anterior interventricular groove giving rise to large size diagonal branch and multiple septal perforators and continues distally to wrap around the apex. stent is patent however it is deformed proximally. severe mid disease 80%, distal LAD 70%. Left circumflex artery is dominant originates from the bifurcation in the usual fashion, then courses its way down the lateral atrioventricular groove, giving rise to 2 large-sized OM branches and continues distally as a left PDA .There was 95% stenosis mid LCX RCA originates from the right coronary sinus of Valsalva in the usual fashion, There was good reflux if dye from this vessel into the coronary sinus, there was no ventriculization or dampening of pressure noted. it is non dominant There was 80% lesion mid RCA. CONCLUSION: 1. There significant epicardial coronary artery disease noted. 3 vessel disease including non dominant RCA, severe LCX and mid LAD. 2. Status post successful percutaneous coronary intervention to left circumflex using 3.0 by 26 mm [place] MORGAN. 3. IFR to the LAD (0.67). Recommendations: Discontinue heparin Continue with aspirin and Brilinta. (Switched to Plavix if Brilinta is not covered). Restart home dose beta-adam Start Crestor and Zetia. Patient did not tolerate statin from before, will obtain vitamin D level. Consider PSCK9 inhibitor as an outpatient. IV diuresis Continue to follow-up the patient on telemetry. Staged PCI to the LAD as an outpatient. Follow-up with cardiology in 1 to 2 weeks. 04/02/25 1617 Date Kalen Edwards MD CC: ESTEBAN Garcia; Dr. Amaris Gomez MD Date Dictated: 04/02/251442 Date Transcribed: 04/02/251442 Php Mysql Web Developer: AJ Signed Normal [facility] Calculated very low density lipoprotein (VLDL) cholesterol measurementOrdered By: Amaris Gomez on 04-02-2025 Calculated very low density lipoprotein (VLDL) cholesterol measurement 63 mg/dL High 5-40 [facility] Carbon dioxide, total [Moles /volume] in Central venous bloodOrdered By: Franko Cueto on 04-02-2025 CO2 [Moles/Vol] 21.2 mmol/L 21.0-32.0 [facility] Cardiac catheterization repo rtOrdered By: Kalen Edwards on 04-02-2025 Cardiac catheterization study [facility] Cardiovascular Services [address] [place] [address] MR#: [id number] Acct: [id number] Name: EAMON HUSTON Rep #: [id number] : 1960 64 From: Kalen Edwards MD Primary Care: ESTEBAN Castellanos Statu s: ADM IN Referring Dr: Sex: F C PCI Cardiac Cath Report PCI Report: DATE OF PROCEDURE: April 02, 2025 PROCEDURES PERFORMED: 1. Selective left and right coronary angiography. 2. Moderate conscious sedation 3. Percutaneous coronary intervention to left circumflex 4. IFR to LAD Indications FOR PROCEDURE: NSTEMI Complications: NONE Specimen: NONE Access: Right Radial Artery Hemostasis: TR band DESCRIPTION OF PROCEDURE: After informed consent was obtained, the patient was brought down to the manager cardiac cath in a fasting state. Right wrist area was prepped, draped and sterilized in the usual fashion. Moderate conscious sedation, administration, documentation and physiologic monitoring of the IV conscious sedation was performed under my direct supervision by a trained registered nurse. Intraservice time started at 12:22 and ended at 13:06 Using modified Seldinger technique, right radial artery was then cannulated. A 6-Icelandic sheath was inserted, sheath was flushed. 4F JR4 catheter was used to engage the right coronary and 5f JL-4 catheter was used to engage Left coronary artery. Multiple orthogonal images were then taken. Aortic valve was not crossed due to the concern of LV mass. After reviewing angiogram,we decided to intervene on LCX. LCX: Using 6 Fr EBU 3.5, LCX was wired then 2.5x12 NC was used to dilate the lesion then 3.0x26 Darinel stent was deployed at 12 lis and post dialted using 3.5mm NC. Final angiogram showed normal flow, no dissection. GILSON flow pre: 2 GILSON flow post :3 Lesion severity before PCI: 95% Lesion severity after PCI: 0% Then we did IFR to the LAD and it resulted at 0.67. Wire and catheter were takenout. TR band was applied. The patient was sent to floor in stable condition. HEMODYNAMICS: LVEDP 18 DESCRIPTION OF CORONARY ANATOMY: The left main originates from the left coronary sinus of Valsalva in the usual fashion. There was good reflux of dye from this vessel into the coronary sinus, there was no ventriculization or dampening of pressure noted. The LM bifurcatesinto LAD and LCX . It has no significant CAD noted. The left anterior descending artery originates from the left main in the usual fashion. It runs in the anterior interventricular groove giving rise to large size diagonal branch and multiple septal perforators and continues distally to wrap around the apex. stent is patent however it is deformed proximally. severe mid disease 80%, distal LAD 70%. Left circumflex artery is dominant originates from the bifurcation in the usual fashion, then courses its way down the lateral atrioventricular groove, giving rise to 2 large-sized OM branches and continues distally as a left PDA .There was 95% stenosis mid LCX RCA originates from the right coronary sinus of Valsalva in the usual fashion, There was good reflux if dye from this vessel into the coronary sinus, there wasno ventriculization or dampening of pressure noted. it is non dominant There was 80% lesion mid RCA. CONCLUSION: 1. There significant epicardial coronary artery disease noted. 3 vessel diseaseincluding non dominant RCA, severe LCX and mid LAD. 2. Status post successful percutaneous coronary intervention to left circumflexusing 3.0 by 26 mm [place] MORGAN. 3. IFR to the LAD (0.67). Recommendations: Discontinue heparin Continue with aspirin and Brilinta. (Switched to Plavix if Brilinta is not covered). Restart home dose beta-adam Start Crestor and Zetia. Patient did not tolerate statin from before, will obtain vitamin D level. Consider PSCK9 inhibitor as an outpatient. IV diuresis Continue to follow-up the patient on telemetry. Staged PCI to the LAD as an outpatient. Follow-up with cardiology in 1 to 2 weeks. 04/02/25 1617 Date _ Kalen Edwards MD CC: EXERCISE RIDERNick Garcia; Dr. Amaris Gomez MD ~ Date Dictated: 04/02/25 144 Date Transcribed: 04/02/251442 Php Mysql Web Developer: LEA Pollock [facility] Cardiac rehabilitation repor tOrdered By: Kassandra Mccormack on 04-02-2025 Study report [facility] Cardiac Rehab [address] [place] [address] CR: Phase I Assessment MR#: [id number] Acct: [id number] Name: EAMON HUSTON Rep #:[id number] : 1960 64 From: Kassandra govea PCP: ESTEBAN Castellanos DOS: 04/02 Patient Communication Patient Information Former Patient:: Phase I PHII Cardiac Rehab Discussed with Patient:: Yes Guide to Cardiac Rehab Given to Patient:: Yes Cardiac Rehab Facility Choice List Given to Patient:: Yes Communication to Cardiac Rehab Choice Program [facility] CR PHII:: Communication Given to CR Platform Worker:: Kalen Edwards Phase II Cardiac Rehab:: Yes Sessions:: 36 sessions - 3 days/wk, 12 weeks Cardiac Rehabilitation Info Program Information Cardiac Rehabilitation Program Information: Cardiac Rehab The cardiac rehab team at [facility] consists of highly skilled exercise physiologists, nurses, respiratory therapists and physicians working together with you. Our purpose is to help you have a full recovery and achieve the goals you set for yourself. Over the years many of our patients have returned to activities they assumed they would never do again! We can help restore your confidence and motivation to make lifestyle changes that can have a significant impact on your health and quality of life! We can help answer questions and concerns you may have about exercise, lifestyle, medications, diet, stress and anxiety which are common following a hospitalization. WE monitor ECG and vital signs during exercise and discuss your progress with you and report toyour physician(s). Cardiac Rehab is proven to help reduce readmissions, improve functional capacityand lower recurrence of problems with your heart. Our Cardiac Rehab program is Certified by the [place] [employer]-Vascular and Pulmonary [employer] (AACVPR) and Accredited by the [place] [employer] through our [facility]. You can contact us at . We invite you to call us with your questions or to get started in our program. If you have other questions or concerns be sure to ask your physician/provider during your follow-up visit. WE look forward to seeing you! 04/02/25 1350 Date Kassandra Mccormack Outcome assessment reviewed. Exercise plan approved as documented. Treatment plan and goals support patient needs/abilities. Continue with current plan. I certify the patient demonstrates improvement and remains willing and capable of participation. the patient continues to benefit from cardiac rehab services/training. The patient may continue at current intensity, endurance andmodality and progress per protocol. Cosigner Signature: Date _ CC: ~ Signed [facility] Chest 1 View (Portable)on Chest 1 View (Portable) [facility] Imaging Services [address] [place] [address] Chest 1 View (Portable) MR#: [id number] Acct: [id number] Name: EAMON HUSTON Rep #: [id number] : 1960 F 64 From: Antelmo Whiethead PCP: ETSEBAN Castellanos Status: ADM IN Study: Chest 1 View (Portable) Date of Exam: 04/02/25 Exam# [id number] Ordering Dr: Kalen Edwards MD PROCEDURE: CHEST 1 VIEW (PORTABLE) 04/02/2025 REASON FOR EXAM: Shortness of breath TECHNIQUE: Frontal view of the chest. COMPARISON: Chest x-ray of 03/20/2020 RAD/Chest 1 View (Portable) IMPRESSION: Left thoracic transvenous pacemaker with leads appears unchanged. The cardiomediastinal silhouette is stable, without evidence of cardiomegaly. Lungs are hypoinflated, but no acute pneumonic process is clearly identified. No pleural effusion or pneumothorax is seen. No acute osseous process is evident. Reading Location: [address] CC: EXERCISE RIDER-C Naima Garcia; Dr. Kalen Edwards MD Php Mysql Web Developer: Signed Normal [facility] Chloride assayOrdered By: Rick prince Nory on 04-02-2025 Chloride [Moles/Vol] 103 mmol/L 98-108 [facility] Consultation - Cardiologyon 04-02-2025 Consultation - Cardiology [facility] Medical Records Department [address] [place] [address] Consultation - Cardiology 04/02/25 0844 MR#: [id number] Acct: [id number] Name: EAMON HUSTON Rep #: [id number] : 1960 64 From: Kalen Edwards MD PCP: ANGEL CastellanosC Status:ADM IN Location: [place] [address] Assessment Plan Assessment/Plan (1) Acute non-ST elevation myocardial infarction (NSTEMI): PLAN: Continue with IV heparin Continue with aspirin Keep NPO for left heart catheterization later on today (2) Congestive heart failure: PLAN: Acute on chronic HFrEF 25% Continue with metoprolol succinate 100 mg daily Continue with losartan 50 mg daily Start Spironolactone 12.5 mg daily Start IV Lasix 20 mg daily (3) CAD (coronary artery disease): QUALIFIERS: Coronary Disease-Associated Artery/Lesion type: due to lipid rich plaque Qualified Code(s): I25.10 - Atherosclerotic heart disease of [place] coronary artery without angina pectoris; I25.83 - Coronary atherosclerosis due to lipid rich plaque PLAN: Continue with aspirin Start zeita and will need to be on PSCK9i as an outpatient Check Vitamin D if needed will start her on crestor as inpatient if she is needing PCI HPI Consult Data Date of Consult: 04/02/25 HPI Narrative Reason for Consultation: Chest pain HPI Narrative: EAMON HUSTON with PMH of remote CAD status post MORGAN to LAD in 2010 at [facility], hypertension, paroxysmal atrial fibrillation not on AC on digoixn and HFrEF status post BIV [facility] [place] implanted in 2012 presented with chest pain worse on exertion associated with shortness of breath found to have elevated troponin at 153. She had recent cold symptoms. She denies any history of stroke, fever, nausea, vomiting, bleeding. she denies any palpitations. she had history of severe myalgia when she had statin. [facility] Medical History ESBL (extended spectrum beta-lactamase) producing bacteria infection Neuropathy Myocardial infarct GERD (gastroesophageal reflux disease) Diabetes type 2, uncontrolled Hypertension Pacemaker Cardiac defibrillator in place Home Medications ???Medication ???Instructions ???Recorded ???Last Taken ???Type blood sugar diagnostic (OneTouch #100 ea 12/21/23 Unknown Rx Ultra Test strips) lancets 30 gauge (E-Z Ject Lancets) #100 ea 12/21/23 Unknown Rx digoxin 125 mcg (0.125 mg) tablet 125 mcg PO DAILY heart #30 tabs 0 03/20/25 04/01/25 09:00 Rx furosemide 20 mg tablet 20 mg PO DAILY PRN Swelling #30 Unknown Rx tabs glimepiride 4 mg tablet 4 mg PO QAM diabetes #30 tabs 02/23 04/17 Unknown Rx losartan 50 mg tablet 50 mg PO DAILY bp #30 tabs 5 04/01/25 09:00 Rx metformin 850 mg tablet 850 mg PO BID diabetes #60 tabs 04/01/25 09:00 Rx 850 mg metoprolol succinate 100 mg 100 mg PO DAILY heart #30 tabs 04/01/25 09:00 Rx tablet,extended release 24 hr nitroglycerin 0.4 mg sublingual 0.4 mg sublingual Q5-15M PRN chest 03/20/25 Unknown Rx tablet pain #30 tabs omeprazole 40 mg capsule,delayed 40 mg PO DAILY PRN GERD #30 caps 0 03/20/25 04/01/25 09:00 Rx release semaglutide 0.25 mg or 0.5 mg (2 0.5 mg (0.736 mL) subcut QWEEK 04/01/25 09:00 Rx mg/3 mL) subcutaneous pen injector diabetes #3 mL 0.5 mg (Ozempic) Allergy/AdvReac Type Severity Reaction Status Date / Time sitagliptin (From Sepuv) Allergy Severe Rash Verified 04/01/25 20:10 Aiumwjy-TLG-GsT Reductase Allergy Intermediate cramps Verified 04/01/25 20:10 Inhibitor (Dyficyb-Pjp-Mhj Reductase Inhibitor) dapagliflozin (From [facility]) AdvReac Severe yeast Verified 04/01/25 20:10 Family History Sister Breast cancer Diabetes Thyroid disorder Mother CVA (cerebral vascular accident) Diabetes Heart disease Myocardial infarction Father Heart disease Myocardial infarction Other CAD (coronary artery disease) Surgical History H/O tubal ligation H/O heart artery stent Social History Smoking Status: Never smoker ROS Constitutional Constitutional: Reports systems reviewed and no addt'l complaints, except as documented and as per HPI Eyes Eyes: Reports systems reviewed and no addt'l complaints, except as documented ENT HEENT: Reports systems reviewed and no addt'l complaints, except as documented Cardiovascular Cardiovascular: Reports chest pain with activity, dyspnea on exertion, easily tiring during activity, orthopnea, pedal edema and rapid heart rate; Denies arrhythmia on telemetry, chest pain at rest, dyspnea at rest, lightheadedness, nausea or vomiting Respiratory/Chest Respiratory/Chest: Reports syst (more content not included)... Normal [facility] Echo Complete W/ Contraston 04-02-2025 Echo Complete W/ Contrast [facility] Cardiovascular Services [address] [place] [address] Echo Complete W/ Contrast 04/02/25 0732 MR#: [id number] Acct: [id number] Name: EAMON HUSTON Rep #: [id number] : 1960 64 From: Kalen Edwards MD Attending Dr: Dr. Amaris Gomez MD Status: AD M IN Ordering Dr: Franko Cueto DO Date: 04/02/25 Location: U Sex: F C Admitted: 04/02/25 Reason For Study Reason For Study: CHEST PAIN Procedure This was a 2D Doppler, Color Flow transthoracic echocardiogram. The study was technically difficult. Due to suboptimal imaging windows. Exam performed in department. Left Ventricle Severely dilated left ventricle. There is evidence of diastolic dysfunction. Severe global left ventricular systolic dysfunction. Moderately severe segmental systolic dysfunction (see wall motion). The LV ejection fraction is 25 %. There are regional wall motion abnormalities as specified. Mid-inferoseptal : Hypokinetic. [place] : Severely Hypokinetic. Lateral [place] : Hypokinetic. Septal [place] : Hypokinetic. Anterior [place] : Hypokinetic. Right Ventricle ICD or pacer leads identified within the right ventricle. Mildly decreased right ventricular systolic function. Atria The left atrium is mildly enlarged. Mitral Valve Mild (1+) mitral valve insufficiency. Tricuspid Valve Normal tricuspid valve. Moderate pulmonary hypertension. Right ventricular systolic pressure estimated to be 62 mmHg. Trivial tricuspid valve insufficiency. Aortic Valve Normal aortic valve. Great Vessels Normal sized aortic root. The inferior vena cava is dilated. and partially collapses. Pericardium/Pleural Small left pleural effusion. Medication Diluted definity 6.0ml given slow IV push to enhance endocardial definition. MMode/2D Measurements Calculations LVIDd: 6.4 cm IVSd: 0.84 cm LVOT diam: 1.9 cm LVIDs: 5.0 cm LVPWd: 0.79 cm LVOT area: 2.8 cm2 RVDd: 2.6 cm FS: 21.4 % Ao root diam: 3.1 cm LAV(MOD-bp): 78.3 ml LVAd ap4: 36.9 cm2 LAV(MOD-bp) Indexed: 39.9 ml/m2 LVLd ap4: 8.1 cm LAV(MOD-sp2): 75.7 ml EDV(MOD-sp4): 139.3 ml LAV(MOD-sp4): 77.3 ml EDV(sp4-el): 142.4 ml LVAs ap4: 30.5 cm2 LVLs ap4: 7.6 cm ESV(MOD-sp4): 100.2 ml ESV(sp4-el): 102.9 ml EF(MOD-sp4): 28.1 % EF(sp4-el): 27.7 % LVAd ap2: 34.9 cm2 SV(MOD-sp4): 39.1 ml SV(MOD-sp2): 35.5 ml LVLd ap2: 8.2 cm SI(MOD-sp4): 20.0 ml/m2 SI(MOD-sp2): 18.1 ml/m2 EDV(MOD-sp2): 122.2 ml EDV(sp2-el): 126.3 ml LVAs ap2: 28.7 cm2 LVLs ap2: 8.1 cm ESV(MOD-sp2): 86.7 ml ESV(sp2-el): 86.1 ml EF(MOD-sp2): 29.0 % SV(sp4-el): 39.5 ml LA dimension(2D): 5.1 cm LA A4 area: 24.4 cm2 RA A4 area: 18.2 cm2 TAPSE: 1.7 cm Time Measurements MV dec time: 0.11 sec Doppler Measurements Calculations MV E max adolfo: 103.7 cm/sec Lat Peak E' Adolfo: 10.2 cm/sec Med Peak E' Adolfo: 7.6 cm/sec MV A max adolfo: 33.3 cm/sec E/E' lat: 10.2 E/E' med: 13.6 MV E/A: 3.1 MV V2 max: 132.9 cm/sec Ao V2 max: 94.4 cm/sec LV V1 max: 85.3 cm/sec MV max P.1 mmHg Ao max P.6 mmHg LV V1 max P.9 mmHg MV V2 mean: 69.5 cm/sec Ao V2 mean: 62.7 cm/sec LV V1 mean P.2 mmHg MV mean P.3 mmHg Ao mean P.7 mmHg LV V1 mean: 51.3 cm/sec MV V2 VTI: 23.6 cm Ao V2 VTI: 14.8 cm LV V1 VTI: 12.8 cm AV (velocity ratio): 0.87 MVA(VTI): 1.5 cm2 JT(I,D): 2.5 cm2 JT(V,D): 2.6 cm2 MR max adolfo: 427.3 cm/sec SV(LVOT): 36.5 ml PA V2 max: 87.8 cm/sec MR max P.0 mmHg PA V2 mean: 53.9 cm/sec MR mean adolfo: 337.0 cm/sec PA V2 VTI: 13.7 cm MR mean P.4 mmHg MR VTI: 110.0 cm PI end-d adolfo: 121.3 cm/sec TR max adolfo: 356.9 cm/sec TR max P.9 mmHg ECHO/Echo Complete W/ Contrast Interpretation Summary Severe global left ventricular systolic dysfunction. The LV ejection fraction is 25 %. Focal on global wall moition ICD or pacer leads identified within the right ventricle. There is evidence of diastolic dysfunction. Moderate pulmonary hypertension. Severely dilated left ventricle. Ordering Physician: Franko Cueto Referring Physician: Naima Garcia (more content not included)... Normal [facility] Echocardiogram study reportO rdered By: Kalen Edwards on 04-02-2025 Study report [facility] Cardiovascular Services [address] [facility] [place] [address] Echo Complete W/ Contrast 04/02/25 0732 MR#: [id number] Acct: [id number] Name: EAMON HUSTON Rep #:[id number] : 1960 64 From: Kalen Whitehead Attending Dr: Dr. Amaris Gomez MD Status: ADM IN Ordering Dr: Franko Cueto DO Da te: 04/02/25 Location: [facility] Sex: F C Admitted: 04/02/25 Reason For Study Reason For Study: CHEST PAIN Procedure This was a 2D Doppler, Color Flow transthoracic echocardiogram. The study was technically difficult. Due to suboptimal imaging windows. Exam performed in department. Left Ventricle Severely dilated left ventricle. There is evidence of diastolic dysfunction. Severe global left ventricular systolic dysfunction. Moderately severe segmental systolic dysfunction (see wall motion).The LV ejection fraction is 25 %. There are regional wall motion abnormalities as specified. Mid-inferoseptal : Hypokinetic. [place] : Severely Hypokinetic. Lateral [place] : Hypokinetic. Septal [place] : Hypokinetic. Anterior [place] : Hypokinetic. Right Ventricle ICD or pacer leads identified within the right ventricle. Mildly decreased rightventricular systolic function. Atria The left atrium is mildly enlarged. Mitral Valve Mild (1+) mitral valve insufficiency. Tricuspid Valve Normal tricuspid valve. Moderate pulmonary hypertension. Right ventricular systolic pressure estimated to be 62 mmHg. Trivial tricuspid valve insufficiency. Aortic Valve Normal aortic valve. Great Vessels Normal sized aortic root. The inferior vena cava is dilated. and partially collapses. Pericardium/Pleural Small left pleural effusion. Medication Diluted definity 6.0ml given slow IV push to enhance endocardial definition. MMode/2D Measurements & Calculations LVIDd: 6.4 cm IVSd: 0.84 cm LVOT diam: 1.9 cm LVIDs: 5.0 cm LVPWd: 0.79 cm LVOT area: 2.8 cm2 RVDd: 2.6 cm FS: 21.4 % ____ Ao root diam: 3.1 cm LAV(MOD-bp): 78.3 ml LVAd ap4: 36.9 cm2 LAV(MOD-bp) Indexed: 39.9 ml/m2 LVLd ap4: 8.1 cm LAV(MOD-sp2): 75.7 ml EDV(MOD-sp4): 139.3 ml LAV(MOD-sp4): 77.3 ml EDV(sp4-el): 142.4 ml LVAs ap4: 30.5 cm2 LVLs ap4: 7.6 cm ESV(MOD-sp4): 100.2 ml ESV(sp4-el): 102.9 ml EF(MOD-sp4): 28.1 % EF(sp4-el): 27.7 % LVAd ap2: 34.9 cm2 SV(MOD-sp4): 39.1 ml SV(MOD-sp2): 35.5 ml LVLd ap2: 8.2 cm SI(MOD-sp4): 20.0 ml/m2 SI(MOD-sp2): 18.1 ml/m2 EDV(MOD-sp2): 122.2 ml EDV(sp2-el): 126.3 ml LVAs ap2: 28.7 cm2 LVLs ap2: 8.1 cm ESV(MOD-sp2): 86.7 ml ESV(sp2-el): 86.1 ml EF(MOD-sp2): 29.0 % SV(sp4-el): 39.5 ml LA dimension(2D): 5.1 cm LA A4 area: 24.4 cm2 RA A4 area: 18.2 cm2 TAPSE: 1.7 cm Time Measurements MV dec time: 0.11 sec Doppler Measurements & Calculations MV E max adolfo: 103.7 cm/sec Lat Peak E' Adolfo: 10.2 cm/sec Med Peak E' Adolfo: 7.6 cm/sec MV A max adolfo: 33.3 cm/sec E/E' lat: 10.2 E/E' med: 13.6 MV E/A: 3.1 MV V2 max: 132.9 cm/sec Ao V2 max: 94.4 cm/sec LV V1 max: 85.3 cm/sec MV max P.1 mmHg Ao max P.6 mmHg LV V1 max P.9 mmHg MV V2 mean: 69.5 cm/sec Ao V2 mean: 62.7 cm/sec LV V1 mean P.2 mmHg MV mean P.3 mmHg Ao mean P.7 mmHg LV V1 mean: 51.3 cm/sec MV V2 VTI: 23.6 cm Ao V2 VTI: 14.8 cm LV V1 VTI: 12.8 cm AV (velocity ratio): 0.87 MVA(VTI): 1.5 cm2 JT(I,D): 2.5 cm2 JT(V,D): 2.6 cm2 MR max adolfo: 427.3 cm/sec SV(LVOT): 36.5 ml PA V2 max: 87.8 cm/sec MR max P.0 mmHg PA V2 mean: 53.9 cm/sec MR mean adolfo: 337.0 cm/sec PA V2 VTI: 13.7 cm MR mean P.4 mmHg MR VTI: 110.0 cm PI end-d adolfo: 121.3 cm/sec TR max adolfo: 356.9 cm/sec TR max P.9 mmHg ECHO/Echo Complete W/ Contrast Interpretation Summary Severe global left ventricular systolic dysfunction. The LV ejection fraction is 25 %. Focal on global wall moition ICD or pacer leads identified within the right ventricle. There is evidence of diastolic dysfunction. Moderate pulmonary hypertension. Severely dilated left ventricle. Ordering Physician: Franko Cueto Referring Physician: Naima Garcia Performed By: Lydia Atkins RVT, RDCS and Student 04/02/25 1108 Date _ Kalen Edwards MD CC: EXERCISE RIDER-C Naima Garcia; (more content not included)... [facility] Electrocardiogram reportOrde red By: Mino Zhang on 04-02-2025 EKG study [facility] Cardiovascular Services [address] [place] [address] 12 Lead EKG 04/02/25 0002 MR#: [id number] Acct: [id number] Name: EAMON HUSTON Rep #:[id number] : 1960 64 From: Mino Zhang MD Attending Dr: Dr. Amaris Gomez MD Status: ADM IN Ordering Dr: Mago Jang DO Date: 0 04/01/25 Location: [facility] Sex: F C Admitted: 04/02/25 Test Reason : REPEAT Blood Pressure : */* mmHG Vent. Rate : 96 BPM Atrial Rate : 96 BPM P-R Int : 108 ms QRS Dur : 134 ms QT Int : 416 ms P-R-T Axes : 69 -80 126 degrees QTcB Int : 525 ms Atrial-sensed ventricular-paced rhythm Abnormal ECG Confirmed by MINO ZHANG MD ([id number]), editor school photograph CORTES DEAN ([id number]) on 04/02/2025 2:14:31 PM Referred By: Confirmed By: MINO ZHANG MD 04/02/25 1414 Date _ Mino Zhang MD CC: EXERCISE RIDER-Rangel Garcia; Dr. Amaris Gomez MD; Dr. Mago Jang, ~ Signed [facility] Work Phone: Erythrocyte distribution wid th ratioOrdered By: Franko Cueto on 04-02-2025 Erythrocyte distribution width (RBC) [Ratio] 14.1 % 11.6-14.6 [facility] Erythrocyte distribution wid th standard deviationOrdered By: Franko Cueto on 04-02-2025 Erythrocyte distribution width (RBC) [Ratio] 47.4 fl High 35.1-43.9 [facility] Glomerular filtration rate ( GFR) estimation/1.73 sq m using serum, plasma, or whole bOrdered By: Franko Cueto on 04-02-2025 GFR/1.73 sq M.predicted among non-blacks MDRD (S/P/Bld) [Vol rate/Area] 103 mL/min/{1.73_m2} >60 [facility] Comment on above: mL/min/1.73m2 CKD-EP I Creatinine Equation (2020) [facility] deOrdered By: Amaris Gomez on 04-02-2025 Glucose [Mass/Vol] 303 mg/dL High 74-106 [facility] Comment on above: MANAGEMENT OF PATIEN T CARE PER NURSING PROTOCOL Hematocrit Auto (Bld) [Volum e fraction]Ordered By: Franko Cueto on 04-02-2025 Hematocrit (Bld) [Volume fraction] 42.6 % 37-47 [facility] Hemoglobin measurementOrdere d By: Franko Cueto on 04-02-2025 Hemoglobin (Bld) [Mass/Vol] 13.9 g/dL 12.0-15.0 [facility] L499.0043on 04-02-2025 Trop T High Sen 132 ng/L Invalid Interpretation Code <=14 [facility] Comment on above: Result Comment: Crit ical Result(s) Called at 0121: by NILDA TO ALEJANDRAIAN:??Results read back by same. Performed By: #### L 500.4100, L500.4050, L100.0100 #### [facility] [address] [place], [place], [id number] LDL calc ser/plasOrdered By: Amaris Gomez on 04-02-2025 Cholesterol in LDL [Mass/Vol] 125 mg/dL [facility] Comment on above: Hntgwmacte=624-108 m g/dL & Higher Dkwc=041 mg/dL or greater Lipid Profileon 04-02-2025 CHOL:HDL 6.96 Normal [facility] Comment on above: Order Comment: Comme nts: may add to ED labs Performed By: #### L 500.4100, L501.5200 ####[facility] [address] [place], [address] Cholesterol [Mass/Vol] 220 mg/dL High <=200 [facility] Comment on above: Order Comment: Comme nts: may add to ED labs Result Comment: Chol esterol level, Desirable <200 mg/dL Borderline high cholesterol 200-239 mg/dL High cholesterol >=240 mg/dL Recommendations of the NCEP Adult Treatment Panel for the following risk-cutoff thresholds for the [place] population. Performed By: #### L 500.4100, L501.5200 ####[facility] [address] [place], [address] Cholesterol in HDL [Mass/Vol] 32 mg/dL Low [facility] Comment on above: Order Comment: Comme nts: may add to ED labs Result Comment: Sulema onal Cholesterol Education Program (NCEP) guidelines: <40 mg/dL: Low HDL-cholesterol (major risk factor for CHD) >= 60 mg/dL: High HDL-cholesterol (negative risk factor for CHD) HDL-cholesterol is affected by a number of factors, e.g. smoking, exercise, hormones, sex and age. Performed By: #### L 500.4100, L501.5200 ####[facility] [address] [place], [address] Cholesterol in LDL [Mass/Vol] 125 mg/dL Normal [facility] Comment on above: Order Comment: Comme nts: may add to ED labs Result Comment: Bord btoykb=986-405 mg/dL Higher Iicy=950 mg/dL or greater Performed By: #### L 500.4100, L501.5200 ####[facility] [address] [place], [address] Cholesterol in VLDL [Mass/Vol] 63 mg/dL High 5-40 [facility] Comment on above: Order Comment: Comme nts: may add to ED labs Performed By: #### L 500.4100, L501.5200 ####[facility] [address] [place], [address] Triglyceride [Mass/Vol] 316 mg/dL High [facility] Comment on above: Order Comment: Comme nts: may add to ED labs Result Comment: The drugs N-Acetylcysteine and Metamizole may falsely depress this assay. Normal range: <150 mg/dL Borderline High: 150-199 mg/dL High: 200-499 mg/dL Very High: >500 mg/dL Performed By: #### L 500.4100, L501.5200 ####[facility] [address] [place], [place], [address] MCV (mean corpuscular volume ) determinationOrdered By: Franko Cueto on 04-02-2025 MCV (RBC) [Entitic vol] 92.2 fL 81-99 [facility] Magnesiumon 04-02-2025 Magnesium [Mass/Vol] 2.0 mg/dL Normal 1.5-2.2 [facility] Comment on above: Order Comment: Comme nts: may add to ED labs Performed By: #### L 500.4100, L501.5200 ####[facility] [address] [place], [place], [id number] Magnesium measurement (mass/ volume)Ordered By: Amaris Gomez on 04-02-2025 Magnesium (Unsp spec) [Mass/Vol] 2.0 mg/dL 1.5-2.2 [facility] Mean corpuscular hemoglobin (MCH) determinationOrdered By: Franko Cueto on 04-02-2025 MCH (RBC) [Entitic mass] 30.1 pg 27.0-32.0 [facility] Mean corpuscular hemoglobin concentration (MCHC) determinationOrdered By: Franko Cueto on 04-02-2025 MCHC (RBC) [Mass/Vol] 32.6 g/dL 32-36 [facility] Mean platelet volume determi nationOrdered By: Franko Cueto on 04-02-2025 Platelet mean volume (Bld) [Entitic vol] 13.0 fL High 6.2-12.0 [facility] Pacemaker Checkon 04-02-2025 Pacemaker Check [facility] [address] [place], [place] [address] Pacemaker Check Date of Service: 04/02/25 1342 MR#: [id number] Acct: [id number] Name: EAMON HUSTON Rep #: [id number] : 1960 From: Raven Concepcion Age/Sex: 64/F [place] [facility] [place]: Signed Billing Codes ICD Device Billin ICD Dev Prog Eval, Multi Assessment and Plan Assessment and Plan (1) Biventricular automatic implantable cardioverter defibrillator in situ: Status: Acute 04/02/25 1353 Date Raven Miller Signature: Date (if applicable) CC: Normal [facility] Partial Thromboplast Timeon 04-02-2025 aPTT Coag (Bld) [Time] 35.9 s Normal 24.1-36.2 [facility] Comment on above: Performed By: #### L 500.4100, L500.4050, L100.0100 #### [facility] [address] [place], [address] aPTT Coag (Bld) [Time] 26.7 s Normal 24.1-36.2 [facility] Comment on above: Performed By: #### L 500.4100, L500.4050, L100.0100 #### [facility] [address] [place], [address] Platelet countOrdered By: Rick Cueto on 04-02-2025 Platelets (Bld) [#/Vol] 211 10*3/uL 150-450 [facility] Potassium measurement (mass/ volume)Ordered By: Franko Cueto on 04-02-2025 Potassium (Unsp spec) [Mass/Vol] 3.9 mmol/L 3.3-5.1 [facility] Prothrombin Time w/INRon INR Coag (PPP) [Relative time] 0.9 {INR} Normal [facility] Comment on above: Performed By: #### L 500.4100, L500.4050, L100.0100 #### [facility] [address] [place], [address] PT Coag (PPP) [Time] 12.7 s Normal 11.7-14.9 [facility] Comment on above: Performed By: #### L 500.4100, L500.4050, L100.0100 #### [facility] [address] [place], [address] RBC Auto (Bld) [#/Vol]Ordere d By: Franko Cueto on 04-02-2025 RBC (Bld) [#/Vol] 4.62 10*6/uL 4.2-5.4 [facility] Screening total cholesterol/ high density lipoprotein (HDL) cholesterol ratioOrdered By: Amaris Gomez on 04-02-2025 Cholesterol.total/Michelle sterol in HDL [Mass ratio] 6.96 {ratio} [facility] Serum creatinine measurement (mass/volume)Ordered By: Franko Cueto on 04-02-2025 Creatinine [Mass/Vol] 0.57 mg/dL Low 0.70-1.20 [facility] Serum glucose measurement (m ass/volume)Ordered By: Franko Cueto on 04-02-2025 Glucose [Mass/Vol] 253 mg/dL High 70-99 [facility] Serum or plasma calcium sylvia urement (mass/volume)Ordered By: Franko Cueto on 04-02-2025 Calcium [Mass/Vol] 9.2 mg/dL 7.6-11.0 [facility] Serum or plasma cholesterol in HDL measurement (mass/volume)Ordered By: Amaris Gomez on 04-02-2025 Cholesterol in HDL [Mass/Vol] 32 mg/dL Low >40 [facility] Comment on above: National Cholesterol Education Program (NCEP) guidelines:<40 mg/dL: Low HDL-cholesterol (major risk factor for CHD)>= 60 mg/dL: High HDL-cholesterol (negative risk factor for CHD)HDL-cholesterol is affected by a number of factors, e.g. smoking, exercise, hormones, sex and age. Serum or plasma cholesterol measurement (mass/volume)Ordered By: Amaris Gomez on 04-02-2025 Cholesterol [Mass/Vol] 220 mg/dL High <201 [facility] Comment on above: Cholesterol level, D esirable <200 mg/dLBorderline high cholesterol 200-239 mg/dLHigh cholesterol >=240 mg/dLRecommendations of the NCEP Adult Treatment Panel for the following risk-cutoff thresholds for the [place] population. Serum or plasma urea nitroge n measurement (mass/volume)Ordered By: Franko Cueto on 04-02-2025 Urea nitrogen [Mass/Vol] 12 mg/dL 4-19 [facility] Sodium levelOrdered By: Evelio Cueto on 04-02-2025 Sodium [Moles/Vol] 137 mmol/L 133-145 [facility] Triglycerides measurementOrd ered By: Amaris Gomez on 04-02-2025 Triglyceride [Mass/Vol] 316 mg/dL High <199 [facility] Comment on above: The drugs N-Acetylcy steine and Metamizole may falsely depress this assay. Normal range: <150 mg/dLBorderline High: 150-199 mg/dLHigh: 200-499 mg/dLVery High: >500 mg/dL Troponin T.cardiac [Mass/vol ume] in Serum or Plasma by High sensitivity methodOrdered By: Mago Jang on 04-02-2025 Troponin T.cardiac High sensitivity method [Mass/Vol] 132 ng/L High <14 [facility] Comment on above: Critical Result(s) C alled at 0121: by BRIANNES TO ADRIANARTIAN: Results read back by same. Vitamin D,25 Hydroxyon 04-02 Vitamin D 25-OH 36.7 ng/mL Normal 30-100 [facility] Comment on above: Result Comment: Peggy min D Status Deficiency: <20 ng/mL (50nmol/L) Insufficiency: 20-30 ng/mL (50-75 nmol/L) Sufficiency: 30-100 ng/mL (75-250 nmol/L) Toxicity: >100 ng/mL (>250 nmol/L) Performed By: #### L 506.1001 ####[facility] [address] [place], [place], [id number] White blood cell (WBC) count Ordered By: Franko Cueto on 04-02-2025 WBC (Bld) [#/Vol] 7.4 10*3/uL 4.4-11.0 [facility] 12 Lead EKGon 04-01-2025 12 Lead EKG [facility] Services [address] [place] [address] 12 Lead EKG 04/02/25 0002 MR#: [id number] Acct: [id number] Name: EAMON HUSTON Rep #: [id number] : 1960 64 From: Mino Zhang MD Attending Dr: Dr. Amaris Gomez MD Status: AD M IN Ordering Dr: Mago Jang DO Date: 04/01/25 Location: [facility] Sex: F C Admitted: 04/02/25 Test Reason : REPEAT Blood Pressure : */* mmHG Vent. Rate : 96 BPM Atrial Rate : 96 BPM P-R Int : 108 ms QRS Dur : 134 ms QT Int : 416 ms P-R-T Axes : 69 -80 126 degrees QTcB Int : 525 ms Atrial-sensed ventricular-paced rhythm Abnormal ECG Confirmed by MINO ZHANG MD ([id number]), editor school photograph CORTES DEAN ([id number]) on 04/02/2025 2:14:31 PM Referred By: Confirmed By: MINO ZHANG MD 04/02/25 1414 Date Mino Zhang MD CC: EXERCISE RIDERNick Garcia; Dr. Amaris Gomez MD; Dr. Mago Jang DO Signed Normal [facility] Absolute lymphocyte countOrd ered By: Mago Jang on 04-01-2025 Lymphocytes Auto (Unsp spec) [#/Vol] 4.77 10*3/uL High 0.83-4.51 [facility] Absolute neutrophil countOrd ered By: Mago Jang on 04-01-2025 Neutrophils (Bld) [#/Vol] 4.1 10*3/uL 2.0-7.7 [facility] Activated partial thrombopla stin time (aPTT) in platelet poor plasma by coagulation aOrdered By: Mago Jang on 04-01-2025 aPTT Coag (PPP) [Time] 26.7 s 24.1-36.2 [facility] Anion gap in Serum or Plasma Ordered By: Mago Jang on 04-01-2025 Anion gap [Moles/Vol] 15 mmol/L 5-15 [facility] Automated lymphocyte count a s percentage of total leukocytesOrdered By: Mago Jang on 04-01-2025 Lymphocytes/100 WBC Auto (Unsp spec) 47.8 % High 19-41 [facility] BUN/creatinine ratioOrdered By: Mago Jang on 04-01-2025 Urea nitrogen/Creatinine [Mass ratio] 19.3 mg/mg 10- [facility] Basic Metabolic Profile (BMP )on 04-01-2025 BUN/CRE 19.3 RATIO Normal - [facility] Comment on above: Performed By: #### L 100.0100, L500.3400, L500.2500, L501.4021, L501.2450 #### [facility] [address] [place], [address] Calcium [Mass/Vol] 9.8 mg/dL Normal 7.6-11.0 [facility] Comment on above: Performed By: #### L 100.0100, L500.3400, L500.2500, L501.4021, L501.2450 #### [facility] [address] [place], [address] Chloride [Moles/Vol] 100 mmol/L Normal 98-108 [facility] Comment on above: Performed By: #### L 100.0100, L500.3400, L500.2500, L501.4021, L501.2450 #### [facility] [address] [place], [address] CO2 [Moles/Vol] 19.2 mmol/L Low 21.0-32.0 [facility] Comment on above: Performed By: #### L 100.0100, L500.3400, L500.2500, L501.4021, L501.2450 #### [facility] [address] [place], [address] Creatinine [Mass/Vol] 0.67 mg/dL Low 0.70-1.20 [facility] Comment on above: Performed By: #### L 100.0100, L500.3400, L500.2500, L501.4021, L501.2450 #### [facility] [address] [place], [address] ECRCL 100.16 ml/min Normal 50-250 [facility] Comment on above: Performed By: #### L 100.0100, L500.3400, L500.2500, L501.4021, L501.2450 #### [facility] [address] [place], [address] GAP 15 Normal 5-15 [facility] Comment on above: Performed By: #### L 100.0100, L500.3400, L500.2500, L501.4021, L501.2450 #### [facility] [address] [place], [address] GFR/1.73 sq M.predicted among non-blacks MDRD (S/P/Bld) [Vol rate/Area] 99 mL/min/{1.73_m2} Normal >60 [facility] Comment on above: Result Comment: mL/m in/1.73m2 CKD-EPI Creatinine Equation (2020) Performed By: #### L 100.0100, L500.3400, L500.2500, L501.4021, L501.2450 #### [facility] [address] [place], [address] Glucose [Mass/Vol] 337 mg/dL High 70-99 [facility] Comment on above: Performed By: #### L 100.0100, L500.3400, L500.2500, L501.4021, L501.2450 #### [facility] [address] [place], [address] Potassium [Moles/Vol] 4.3 mmol/L Normal 3.3-5.1 [facility] Comment on above: Performed By: #### L 100.0100, L500.3400, L500.2500, L501.4021, L501.2450 #### [facility] [address] [place], [address] Sodium [Moles/Vol] 134 mmol/L Normal 133-145 [facility] Comment on above: Performed By: #### L 100.0100, L500.3400, L500.2500, L501.4021, L501.2450 #### [facility] [address] [place], [address] Urea nitrogen [Mass/Vol] 13 mg/dL Normal 4-19 [facility] Comment on above: Performed By: #### L 100.0100, L500.3400, L500.2500, L501.4021, L501.2450 #### [facility] [address] [place], [address] Basophil percentageOrdered B y: Mago Jang on 04-01-2025 Basophils/100 WBC (Bld) 0.9 % 0-1 [facility] Bilirubin directOrdered By: Mago Jang on 04-01-2025 Bilirubin.direct [Mass/Vol] 0.27 mg/dL 0.00-0.30 [facility] Bilirubin, totalOrdered By: Mago Jang on 04-01-2025 Bilirubin [Mass/Vol] 0.57 mg/dL 0.00-1.30 [facility] CBC W/Diff, Automatedon 07-0 Absolute Lymph 4.77 X10 3/uL High 0.83-4.51 [facility] Comment on above: Performed By: #### L 100.0100, L500.3400, L500.2500, L501.4021, L501.2450 #### [facility] [address] [place], [address] Absolute Neut 4.1 X10 3/uL Normal 2.0-7.7 [facility] Comment on above: Performed By: #### L 100.0100, L500.3400, L500.2500, L501.4021, L501.2450 #### [facility] [address] [place], [address] Basophils/100 WBC (Bld) 0.9 % Normal 0-1 [facility] Comment on above: Performed By: #### L 100.0100, L500.3400, L500.2500, L501.4021, L501.2450 #### [facility] [address] [place], [address] Eosinophils/100 WBC (Bld) 1.3 % Normal 0-5 [facility] Comment on above: Performed By: #### L 100.0100, L500.3400, L500.2500, L501.4021, L501.2450 #### [facility] [address] [place], [address] Erythrocyte distribution width (RBC) [Ratio] 14.2 % Normal 11.6-14.6 [facility] Comment on above: Performed By: #### L 100.0100, L500.3400, L500.2500, L501.4021, L501.2450 #### [facility] [address] [place], [address] Hematocrit (Bld) [Volume fraction] 46.6 % Normal 37-47 [facility] Comment on above: Performed By: #### L 100.0100, L500.3400, L500.2500, L501.4021, L501.2450 #### [facility] [address] [place], [address] Hemoglobin (Bld) [Mass/Vol] 15.3 g/dL High 12.0-15.0 [facility] Comment on above: Performed By: #### L 100.0100, L500.3400, L500.2500, L501.4021, L501.2450 #### [facility] [address] [place], [address] IG% 0.200 Normal 0.0-0.9 [facility] Comment on above: Result Comment: IG% - Immature Granulocytes (promyelocytes, myelocytes and metamyelocytes) > 1% indicates that a LEFT SHIFT is Present. Performed By: #### L 100.0100, L500.3400, L500.2500, L501.4021, L501.2450 #### [facility] [address] [place], [address] Lymphocytes/100 WBC (Bld) 47.8 % High 19-41 [facility] Comment on above: Performed By: #### L 100.0100, L500.3400, L500.2500, L501.4021, L501.2450 #### [facility] [address] [place], [address] MCH (RBC) [Entitic mass] 30.7 pg Normal 27.0-32.0 [facility] Comment on above: Performed By: #### L 100.0100, L500.3400, L500.2500, L501.4021, L501.2450 #### [facility] [address] [place], [address] MCHC (RBC) [Mass/Vol] 32.8 g/dL Normal 32-36 [facility] Comment on above: Performed By: #### L 100.0100, L500.3400, L500.2500, L501.4021, L501.2450 #### [facility] [address] [place], [address] MCV (RBC) [Entitic vol] 93.4 fL Normal 81-99 [facility] Comment on above: Performed By: #### L 100.0100, L500.3400, L500.2500, L501.4021, L501.2450 #### [facility] [address] [place], [address] Monocytes/100 WBC (Bld) 9.2 % Normal 0-10 [facility] Comment on above: Performed By: #### L 100.0100, L500.3400, L500.2500, L501.4021, L501.2450 #### [facility] [address] [place], [address] Neutrophils/100 WBC (Bld) 40.6 % Low 47-70 [facility] Comment on above: Performed By: #### L 100.0100, L500.3400, L500.2500, L501.4021, L501.2450 #### [facility] [address] [place], [address] Nucleated RBC (Bld) [#/Vol] 0 10*3/uL Normal 0-5 [facility] Comment on above: Performed By: #### L 100.0100, L500.3400, L500.2500, L501.4021, L501.2450 #### [facility] [address] [place], [address] Platelet mean volume (Bld) [Entitic vol] 12.9 fL High 6.2-12.0 [facility] Comment on above: Performed By: #### L 100.0100, L500.3400, L500.2500, L501.4021, L501.2450 #### [facility] [address] [place], [address] Platelets (Bld) [#/Vol] 242 10*3/uL Normal 150-450 [facility] Comment on above: Performed By: #### L 100.0100, L500.3400, L500.2500, L501.4021, L501.2450 #### [facility] [address] [place], [address] RBC (Bld) [#/Vol] 4.99 10*6/uL Normal 4.2-5.4 [facility] Comment on above: Performed By: #### L 100.0100, L500.3400, L500.2500, L501.4021, L501.2450 #### [facility] [address] [place], [address] RDW SD 48.3 fl High 35.1-43.9 [facility] Comment on above: Performed By: #### L 100.0100, L500.3400, L500.2500, L501.4021, L501.2450 #### [facility] [address] [place], [address] WBC (Bld) [#/Vol] 10.0 10*3/uL Normal 4.4-11.0 [facility] Comment on above: Performed By: #### L 100.0100, L500.3400, L500.2500, L501.4021, L501.2450 #### [facility] [address] [place], [address] CO2 (BldV) [Moles/Vol]Ordere d By: Mago Jang on 04-01-2025 CO2 [Moles/Vol] 25 mmol/L 23-33 [facility] Carbon dioxide, total [Moles /volume] in Central venous bloodOrdered By: Mago Jang on 04-01-2025 CO2 [Moles/Vol] 19.2 mmol/L Low 21.0-32.0 [facility] Chest 1 View (Portable)on Chest 1 View (Portable) [facility] Imaging Services [address] [place], [place] [address] Chest 1 View (Portable) MR#: [id number] Acct: [id number] Name: EAMON HUSTON Rep #: [id number] : 1960 F 64 From: John Langford MD PCP: Naima Garcia NP-C Status: REG ER Study: Chest 1 View (Portable) Date of Exam: 04/01/25 Exam# [id number] Ordering Dr: Mago Jang DO PROCEDURE: CHEST 1 VIEW (PORTABLE) 04/01/2025 REASON FOR EXAM: CHEST PAIN TECHNIQUE: Frontal view of the chest. COMPARISON: 03/20/2020 FINDINGS: Devices: Left chest wall multilead ICD appears appropriately positioned. Lungs/Pleura: Diffuse reticular and hazy perihilar airspace opacities compatible with interstitial and alveolar edema. No sizable pleural effusions. No pneumothorax. Heart/Mediastinum: Cardiomegaly. Vascular congestion. Aortic arch calcification. Bones/Soft tissues: Mild degenerative changes of the spine. RAD/Chest 1 View (Portable) IMPRESSION: Cardiomegaly with pulmonary edema. No sizable pleural effusion. Reading Location: [id number] CC: EXERCISE RIDER-C Naima Garcia; Dr. Mago Jang DO Php Mysql Web Developer: Signed Normal [facility] Chloride assayOrdered By: Tariq Jang on 04-01-2025 Chloride [Moles/Vol] 100 mmol/L 98-108 [facility] D-Dimer Quantitative (DVT/PE )on 04-01-2025 D-DIMER QUANT 0.37 FEU/ug/m Normal 0.27-0.49 [facility] Comment on above: Result Comment: NORM AL D-Dimer level (<0.50) indicates no DVT or PE. Performed By: #### L 500.4100, L500.4050, L100.0100 #### [facility] [address] [place], [address] Digoxin Levelon 04-01-2025 DIG 0.76 ng/mL Normal 0.00-2.00 [facility] Comment on above: Performed By: #### L 501.7510 #### [facility] [address] [place], [address] Emergency Department Summary on 04-01-2025 Emergency Department Summary [facility] Medical Records Department [address] [place] [address] Emergency Department Summary 04/01/25 MR#: [id number] Acct: [id number] Name: EAMNO HUSTON Rep #: [id number] : 1960 64 From: Mago Jang DO PCP: ESTEBAN Castellanos Status:REG ER Location: ED HPI History of Present Illness Chief Complaint: Chest Pain Informant: patient Narrative Narrative: Patient is a 64-year-old female with history of coronary artery disease (status post stents), congestive heart failure, atrial fibrillation (not on anticoagulation), hypertension and poorly controlled type 2 diabetes mellitus presenting with chest pressure that radiates to her back and shortness of breath. Also reports a cough productive of sputum. Patient states has been having the symptoms for 2 to 3 days. States they are intermittent. She went and saw family practice yesterday for the symptoms and had outpatient labs drawn including a troponin, CBC, CMP, troponin, CRP and A1c as well as TSH. Lab work was remarkable for an elevated troponin T of 153 and patient was contacted today to come to the emergency room because they are worried she was having a heart attack. Patient states she was not having any chest pain and that she was cleaning her house until he told her about her symptoms and then she started having chest pain again. She denies any swelling of her legs. Her A1c was also elevated at 12 and her bicarb was low at 19 with a glucose of 242 but a normal anion gap (15). Patient denies any ripping or tearing sensation. Denies any recent medication changes. Denies any fever or chills but states she feels warm right now. [facility] Medical History ESBL (extended spectrum beta-lactamase) producing bacteria infection Neuropathy Myocardial infarct GERD (gastroesophageal reflux disease) Diabetes type 2, uncontrolled Hypertension Pacemaker Cardiac defibrillator in place Home Medications ???Medication ???Instructions ???Recorded ???Last Taken ???Type omega-3 fatty acids 1,000 mg 2,000 mg PO DAILY 11/14/18 Unknown History capsule (Fish Oil Concentrate) blood sugar diagnostic (OneTouch #100 ea 12/21/23 Unknown Rx Ultra Test strips) lancets 30 gauge (E-Z Ject Lancets) #100 ea 12/21/23 Unknown Rx digoxin 125 mcg (0.125 mg) tablet 125 mcg PO DAILY #30 tabs 5 Unknown Rx furosemide 20 mg tablet 20 mg PO DAILY PRN Swelling #30 Unknown Rx tabs glimepiride 4 mg tablet 4 mg PO QAM #30 tabs 03/20/25 Unkn own Rx losartan 50 mg tablet 50 mg PO DAILY #30 tabs 03/20/25 U nknown Rx metformin 850 mg tablet 850 mg PO BID #60 tabs 03/20/25 Un known Rx metoprolol succinate 100 mg 100 mg PO DAILY #30 tabs 03/20/25 Unknown Rx tablet,extended release 24 hr nitroglycerin 0.4 mg sublingual 0.4 mg sublingual Q5-15M PRN chest 03/20/25 Unknown Rx tablet pain #30 tabs omeprazole 40 mg capsule,delayed 40 mg PO DAILY PRN GERD #30 caps 0 03/20/25 Unknown Rx release pioglitazone 45 mg tablet 45 mg PO QDAY #30 tabs 03/20/25 Un known Rx semaglutide 0.25 mg or 0.5 mg (2 0.5 mg (0.736 mL) subcut QWEEK Unknown Rx mg/3 mL) subcutaneous pen injector diabetes #3 mL (Ozempic) Allergy/AdvReac Type Severity Reaction Status Date / Time sitagliptin (From Sepuv) Allergy Severe Rash Verified 04/01/25 20:10 Qfvgomg-FDC-FlH Reductase Allergy Intermediate cramps Verified 04/01/25 20:10 Inhibitor (Rszcdrb-Lfj-Eug Reductase Inhibitor) dapagliflozin (From ) AdvReac Severe yeast Verified 04/01/25 20:10 Family History Sister Breast cancer Diabetes Thyroid disorder Mother CVA (cerebral vascular accident) Diabetes Heart disease Myocardial infarction Father Heart disease Myocardial infarction Other CAD (coronary artery disease) Surgical History H/O tubal ligation H/O heart artery stent Social History Smoking Status: Never smoker ROS ROS ED Constitutional Constitutional ED: Reports sweats; Denies chills or fever(s) Cardiovascular Cardiovascular: Reports as per HPI, chest pain, palpitations and racing heartbeat Respiratory/Chest Respiratory/Chest: Reports cough, dyspnea and sputum Gastrointestinal Gastrointestinal: Denies abdominal pain, diarrhea, nausea or vomiting Musculoskeletal Musculoskeletal: Reports back pain; Denies arthralgias or myalgias Integumentary Denies rash Neurologic Neurologic: Denies paresthesias or weakness Psychiatric Psychiatric: Reports anxiety Hematologic/Lymphati c Hematologic/Lymphati c: Denies easy bleeding or easy bruising EXAM Physical Exam Const (more content not included)... Normal [facility] Eosinophil percentageOrdered By: Mago Jang on 04-01-2025 Eosinophils/100 WBC (Bld) 1.3 % 0-5 [facility] Erythrocyte distribution wid th ratioOrdered By: Mago Jang on 04-01-2025 Erythrocyte distribution width (RBC) [Ratio] 14.2 % 11.6-14.6 [facility] Erythrocyte distribution wid th standard deviationOrdered By: Mago Jang on 04-01-2025 Erythrocyte distribution width (RBC) [Ratio] 48.3 fl High 35.1-43.9 [facility] Glomerular filtration rate ( GFR) estimation/1.73 sq m using serum, plasma, or whole bOrdered By: Mago Jang on 04-01-2025 GFR/1.73 sq M.predicted among non-blacks MDRD (S/P/Bld) [Vol rate/Area] 99 mL/min/{1.73_m2} >60 [facility] Comment on above: mL/min/1.73m2 CKD-EP I Creatinine Equation (2020) [facility] H&P Exam - Hospitalist [facility] Medical Records Department [address] [place] [address] H P Exam - Hospitalist 04/01/25 2346 MR#: [id number] Acct: [id number] Name: EAMON HUSTON Rep #: [id number] : 1960 64 From: Franko Cueto DO PCP: ESTEBAN Castellanos Status:ADM IN Location: [place] [address] HPI - General General Date of Admission: 04/02/25 Date of Service: 04/01/25 Chief Complaint: Chest discomfort and shortness of breath HPI Narrative EAMON HUSTON, is a 64 F who presented to [facility] ED on 04/01/2025 with chest discomfort and shortness of breath. Medical history is significant for CAD with remote stenting, CHF, status post pacemaker and defibrillator placement, and poorly controlled type 2 diabetes mellitus. She saw her PCP on 03/31 and reported intermittent symptoms of chest discomfort and shortness of breath for the past 2 to 3 days. Lab work was sent and showed an elevated troponin of 153 so she was told to come to the ED for further evaluation. On arrival to the ED she was tachycardic to the 120s and mildly hypertensive, otherwise stable on room air. Per ED physician, she was pale and somewhat uncomfortable appearing. CBC and BMP were benign. Troponin trend 142 > 127 > 132. Chest x-ray showed cardiomegaly with pulmonary edema. Blood glucose 337 and last A1c 11.7% on 03/20. Patient was given a dose of nitro and had significant improvement in pain with that. Given concern for NSTEMI, hospitalist was contacted for admission. I saw the patient at bedside in the ED. Patient was sitting back fairly comfortably in bed, conversing normally, in no acute distress. Noted that her chest discomfort continues to feel improved now compared to earlier today. She does report some radiation of pain to the back over the past few days as well and this feels improved currently. Given her history and symptoms, patient was started on a heparin drip given high concern for NSTEMI. Will be admitted for further management. [facility] Medical History ESBL (extended spectrum beta-lactamase) producing bacteria infection Neuropathy Myocardial infarct GERD (gastroesophageal reflux disease) Diabetes type 2, uncontrolled Hypertension Pacemaker Cardiac defibrillator in place Home Medications ???Medication ???Instructions ???Recorded ???Last Taken ???Type blood sugar diagnostic (OneTouch #100 ea 12/21/23 Unknown Rx Ultra Test strips) lancets 30 gauge (E-Z Ject Lancets) #100 ea 12/21/23 Unknown Rx digoxin 125 mcg (0.125 mg) tablet 125 mcg PO DAILY heart #30 tabs 0 03/20/25 04/01/25 09:00 Rx furosemide 20 mg tablet 20 mg PO DAILY PRN Swelling #30 Unknown Rx tabs glimepiride 4 mg tablet 4 mg PO QAM diabetes #30 tabs 02/23 04/17 Unknown Rx losartan 50 mg tablet 50 mg PO DAILY bp #30 tabs 5 04/01/25 09:00 Rx metformin 850 mg tablet 850 mg PO BID diabetes #60 tabs 04/01/25 09:00 Rx 850 mg metoprolol succinate 100 mg 100 mg PO DAILY heart #30 tabs 04/01/25 09:00 Rx tablet,extended release 24 hr nitroglycerin 0.4 mg sublingual 0.4 mg sublingual Q5-15M PRN chest 03/20/25 Unknown Rx tablet pain #30 tabs omeprazole 40 mg capsule,delayed 40 mg PO DAILY PRN GERD #30 caps 0 03/20/25 04/01/25 09:00 Rx release semaglutide 0.25 mg or 0.5 mg (2 0.5 mg (0.736 mL) subcut QWEEK 04/01/25 09:00 Rx mg/3 mL) subcutaneous pen injector diabetes #3 mL 0.5 mg (Ozempic) Allergy/AdvReac Type Severity Reaction Status Date / Time sitagliptin (From Sepuv) Allergy Severe Rash Verified 04/01/25 20:10 Xvnprmu-LCX-CrQ Reductase Allergy Intermediate cramps Verified 04/01/25 20:10 Inhibitor (Vxuojqw-Vpx-Icn Reductase Inhibitor) dapagliflozin (From xi) AdvReac Severe yeast Verified 04/01/25 20:10 Family History Sister Breast cancer Diabetes Thyroid disorder Mother CVA (cerebral vascular accident) Diabetes Heart disease Myocardial infarction Father Heart disease Myocardial infarction Other CAD (coronary artery disease) Surgical History H/O tubal ligation H/O heart artery stent Social History Smoking Status: Never smoker ROS Constitutional Constitutional: Denies chills, fatigue, fever(s) or weakness Eyes Eyes: Denies change in vision Cardiovascular Cardiovascular: Reports chest pain Respiratory/Chest Respiratory/Chest: Reports shortness of breath with exertion; Denies shortness of breath at rest or wheezing Gastrointestinal Gastrointestinal: Denies abdominal pain Musculoskeletal Musculoskeletal: Denies arthralgias or myalgias Vital Signs Vital Signs (more content not included)... Normal [facility] Hematocrit Auto (Bld) [Volum e fraction]Ordered By: Mago Jang on 04-01-2025 Hematocrit (Bld) [Volume fraction] 46.6 % 37-47 [facility] Hemoglobin measurementOrdere d By: Mago Jang on 04-01-2025 Hemoglobin (Bld) [Mass/Vol] 15.3 g/dL High 12.0-15.0 [facility] Immature granulocytes/100 WB C Auto (Bld)Ordered By: Mago Jang on 04-01-2025 Immature granulocytes/100 WBC (Bld) 0.200 % 0.0-0.9 [facility] Comment on above: IG% - Immature Granu locytes (promyelocytes, myelocytes and metamyelocytes) > 1% indicates that a LEFT SHIFT is Present. International normalized rat io (INR) calculationOrdered By: Mago Jang on 04-01-2025 INR Coag (Bld) [Relative time] 0.9 {INR} [facility] L499.0042on 04-01-2025 Trop T High Sen 127 ng/L Invalid Interpretation Code <=14 [facility] Comment on above: Result Comment: Crit ical Result(s) Called at: 2247 by: YUMI NEGRETE TO IVY FLORES??Results read back by same. Performed By: #### L 500.4100, L500.4050, L100.0100 #### [facility] [address] [place], [address] L501.4021on 04-01-2025 Trop T High Sen 142 ng/L Invalid Interpretation Code <=14 [facility] Comment on above: Result Comment: Crit ical Result(s) Called at: 2158 by: YUMI NEGRETE TO JACINDA ROSALES??Results read back by same. Performed By: #### L 100.0100, L500.3400, L500.2500, L501.4021, L501.2450 ####[facility] [address] [place], [address] Trop T High Sen 153 ng/L Invalid Interpretation Code <=14 [facility] Comment on above: Result Comment: Crit ical Result(s) Called at: 1919 by: YUMI NEGRETE TO NAIMA GARCIA??Results read back by same. Performed By: #### L 3100.7870, L501.4021 ####[facility] [address] [place], [address] L503.7505on 04-01-2025 Natriuretic peptide B (Bld) [Mass/Vol] 1180 pg/mL High <=900 [facility] Comment on above: Result Comment: Hear t Failure Unlikely: < 300 pg/mL Heart Failure Likely < 50 Years: > 450 pg/mL 50-75 Years: > 900 pg/mL >75 Years: > 1800 pg/mL Performed By: #### L 503.7505 #### [facility] [address] [place], [address] Laboratory - Chemistry and C hemistry - challengeOrdered By: Mago Jang on 04-01-2025 AST [Catalytic activity/Vol] 85 U/L High <32 [facility] Lipaseon 04-01-2025 Lipase [Catalytic activity/Vol] 26 U/L Normal 13-75 [facility] Comment on above: Result Comment: Plea se note: LIPASE revised reference range effective 23. New Lipase methodology. Expected to produce lower values than the previous assay method. NEW Reference Range: 13 - 75 U/L Performed By: #### L 100.0100, L500.3400, L500.2500, L501.4021, L501.2450 ####[facility] [address] [place], [address] Lipase measurementOrdered By : Mago Jang on 04-01-2025 Lipase [Catalytic activity/Vol] 26 U/L 13-75 [facility] Comment on above: Please note:LIPASE r evised reference range effective 23. New Lipase methodology. Expected to produce lower values than the previous assay method. NEW Reference Range: 13 - 75 U/L Liver Profileon 04-01-2025 Albumin [Mass/Vol] 4.1 g/dL Normal 3.4-4.8 [facility] Comment on above: Performed By: #### L 100.0100, L500.3400, L500.2500, L501.4021, L501.2450 ####[facility] [address] [place], [address] ALK PHOS 144 U/L High 35-104 [facility] Comment on above: Performed By: #### L 100.0100, L500.3400, L500.2500, L501.4021, L501.2450 ####[facility] [address] [place], [address] ALT [Catalytic activity/Vol] 83 U/L High <=34 [facility] Comment on above: Performed By: #### L 100.0100, L500.3400, L500.2500, L501.4021, L501.2450 ####[facility] [address] [place], [address] AST [Catalytic activity/Vol] 85 U/L High <=31 [facility] Comment on above: Performed By: #### L 100.0100, L500.3400, L500.2500, L501.4021, L501.2450 ####[facility] [address] [place], [address] Bilirubin [Mass/Vol] 0.57 mg/dL Normal 0.00-1.30 [facility] Comment on above: Performed By: #### L 100.0100, L500.3400, L500.2500, L501.4021, L501.2450 ####[facility] [address] [place], [address] Bilirubin.direct [Mass/Vol] 0.27 mg/dL Normal 0.00-0.30 [facility] Comment on above: Performed By: #### L 100.0100, L500.3400, L500.2500, L501.4021, L501.2450 ####[facility] [address] [place], [address] Globulin (S) [Mass/Vol] 3.0 g/dL Normal 2.2-4.2 [facility] Comment on above: Performed By: #### L 100.0100, L500.3400, L500.2500, L501.4021, L501.2450 ####[facility] [address] [place], [address] T PROT 7.1 g/dL Normal 5.9-8.4 [facility] Comment on above: Performed By: #### L 100.0100, L500.3400, L500.2500, L501.4021, L501.2450 ####[facility] [address] [place], [address] MCV (mean corpuscular volume ) determinationOrdered By: Mago Jang on 04-01-2025 MCV (RBC) [Entitic vol] 93.4 fL 81-99 [facility] Mean corpuscular hemoglobin (MCH) determinationOrdered By: Mago Jang on 04-01-2025 MCH (RBC) [Entitic mass] 30.7 pg 27.0-32.0 [facility] Mean corpuscular hemoglobin concentration (MCHC) determinationOrdered By: Mago Jang on 04-01-2025 MCHC (RBC) [Mass/Vol] 32.8 g/dL 32-36 [facility] Mean platelet volume determi nationOrdered By: Mago Jang on 04-01-2025 Platelet mean volume (Bld) [Entitic vol] 12.9 fL High 6.2-12.0 [facility] Monocyte percentageOrdered B y: Mago Jang on 04-01-2025 Monocytes/100 WBC (Bld) 9.2 % 0-10 [facility] Natriuretic peptide.B prohor osbaldo N-Terminal [Mass/volume] in Serum or PlasmaOrdered By: Mago Jang on 04-01-2025 Natriuretic peptide.B prohormone N-Terminal [Mass/Vol] 1180 pg/mL High <900 [facility] Comment on above: Heart Failure Unlike ly: < 300 pg/mLHeart Failure Likely< 50 Years: > 450 pg/mL50-75 Years: > 900 pg/mL>75 Years: > 1800 pg/mL Neutrophil percentageOrdered By: Mago Jang on 04-01-2025 Neutrophils/100 WBC (Bld) 40.6 % Low 47-70 [facility] No Panel InformationOrdered By: Mago Jang on 04-01-2025 Blood Gas Sample Site Not entered [facility] Blood Gas Specimen Type LAYO [facility] Oxygen Delivery Device Cannula [facility] Nucleated red blood cell per centageOrdered By: Mago Jang on 04-01-2025 Nucleated RBC/100 WBC (Bld) [Ratio] 0 % 0-5 [facility] Platelet countOrdered By: Tariq Jang on 04-01-2025 Platelets (Bld) [#/Vol] 242 10*3/uL 150-450 [facility] Potassium measurement (mass/ volume)Ordered By: Mago Jang on 04-01-2025 Potassium (Unsp spec) [Mass/Vol] 4.3 mmol/L 3.3-5.1 [facility] Prothrombin timeOrdered By: Mago Jang on 04-01-2025 PT Coag (PPP) [Time] 12.7 s 11.7-14.9 [facility] RBC Auto (Bld) [#/Vol]Ordere d By: Mago Jang on 04-01-2025 RBC (Bld) [#/Vol] 4.99 10*6/uL 4.2-5.4 [facility] Serum creatinine measurement (mass/volume)Ordered By: Mago Jang on 04-01-2025 Creatinine [Mass/Vol] 0.67 mg/dL Low 0.70-1.20 [facility] Serum globulin measurementOr dered By: Mago Jang on 04-01-2025 Globulin (S) [Mass/Vol] 3.0 g/dL 2.2-4.2 [facility] Serum glucose measurement (m ass/volume)Ordered By: Mago Jang on 04-01-2025 Glucose [Mass/Vol] 337 mg/dL High 70-99 [facility] Serum or plasma alanine lamb otransferase (ALT) measurementOrdered By: Mago Jang on 04-01-2025 ALT [Catalytic activity/Vol] 83 U/L High <35 [facility] Serum or plasma albumin sylvia urement (mass/volume)Ordered By: Mago Jang on 04-01-2025 Albumin [Mass/Vol] 4.1 g/dL 3.4-4.8 [facility] Serum or plasma alkaline cydney sphatase measurementOrdered By: Mago Jang on 04-01-2025 ALP [Catalytic activity/Vol] 144 U/L High 35-104 [facility] Serum or plasma calcium sylvia urement (mass/volume)Ordered By: Mago Jang on 04-01-2025 Calcium [Mass/Vol] 9.8 mg/dL 7.6-11.0 [facility] Serum or plasma digoxin sylvia urement (mass/volume)Ordered By: Mago Jang on 04-01-2025 Digoxin [Mass/Vol] 0.76 ng/mL 0.00-2.00 [facility] Serum or plasma urea nitroge n measurement (mass/volume)Ordered By: Mago Jang on 04-01-2025 Urea nitrogen [Mass/Vol] 13 mg/dL 4-19 [facility] Sodium levelOrdered By: Cecilia Jang on 04-01-2025 Sodium [Moles/Vol] 134 mmol/L 133-145 [facility] Total proteinOrdered By: Latasha Jang on 04-01-2025 Protein [Mass/Vol] 7.1 g/dL 5.9-8.4 [facility] Troponin T.cardiac [Mass/vol ume] in Serum or Plasma by High sensitivity methodOrdered By: Mago Jang on 04-01-2025 Troponin T.cardiac High sensitivity method [Mass/Vol] 127 ng/L High <14 [facility] Comment on above: Critical Result(s) C alled at: 2247 by: YUMI NEGRETE TO IVY FLORES Results read back by same. Troponin T.cardiac High sensitivity method [Mass/Vol] 142 ng/L High <14 [facility] Comment on above: Delta: 153 on Critical Result(s) Called at: 2159 by: YUMI ROSALES Results read back by same. Venous Blood Gason Blood Gas Type LAYO Normal [facility] Comment on above: Performed By: #### L 500.4100, L500.4050, L100.0100 #### [facility] [address] [place], [address] CO2 [Moles/Vol] 25 mmol/L Normal 23-33 [facility] Comment on above: Performed By: #### L 500.4100, L500.4050, L100.0100 #### [facility] [address] [place], [address] FI02 2.0 Normal [facility] Comment on above: Performed By: #### L 500.4100, L500.4050, L100.0100 #### [facility] [address] [place], [address] HCO3 (Bld) [Moles/Vol] 24 mmol/L Normal 22-26 [facility] Comment on above: Performed By: #### L 500.4100, L500.4050, L100.0100 #### [facility] [address] [place], [address] O2 Delivery Dev Cannula Normal [facility] Comment on above: Performed By: #### L 500.4100, L500.4050, L100.0100 #### [facility] [address] [place], [address] SITE Not entered Normal [facility] Comment on above: Performed By: #### L 500.4100, L500.4050, L100.0100 #### [facility] [address] [place], [address] VBG BE -1 mmol/L Normal -1.0-3.5 [facility] Comment on above: Performed By: #### L 500.4100, L500.4050, L100.0100 #### [facility] [address] [place], [address] VBG pCO2 39.8 mmHg Low 41-51 [facility] Comment on above: Performed By: #### L 500.4100, L500.4050, L100.0100 #### [facility] [address] [place], [address] VBG pH 7.39 Normal 7.32-7.42 [facility] Comment on above: Performed By: #### L 500.4100, L500.4050, L100.0100 #### [facility] [address] [place], [address] VBG PO2 39 mmHg Normal 25-40 [facility] Comment on above: Performed By: #### L 500.4100, L500.4050, L100.0100 #### [facility] [address] [place], [address] VBG SO2 73 High 50-70 [facility] Comment on above: Performed By: #### L 500.4100, L500.4050, L100.0100 #### [facility] [place], [address] Venous blood base excess ana luisa surementOrdered By: Mago Jang on 04-01-2025 Base excess Calc (BldV) [Moles/Vol] -1 mmol/L -1.0-3.5 [facility] Venous blood bicarbonate ana luisa surementOrdered By: Mago Jang on 04-01-2025 HCO3 (Bld) [Moles/Vol] 24 mmol/L 22-26 [facility] Venous blood oxygen saturati on measurementOrdered By: Mago Jang on 04-01-2025 Oxygen saturation in Blood 73 % High 50-70 [facility] Venous blood pH measurementO rdered By: Mago Jang on 04-01-2025 pH (BldV) 7.39 [pH] 7.32-7.42 [facility] Venous blood partial pressur e of carbon dioxide measurementOrdered By: Mago Jang on 04-01-2025 CO2 (BldV) [Partial pressure] 39.8 mm[Hg] Low 41-51 [facility] Venous blood partial pressur e of oxygen measurementOrdered By: Mago Jang on 04-01-2025 Oxygen (BldV) [Partial pressure] 39 mm[Hg] 25-40 [facility] White blood cell (WBC) count Ordered By: Mago Jang on 04-01-2025 WBC (Bld) [#/Vol] 10.0 10*3/uL 4.4-11.0 [facility] Absolute lymphocyte countOrd ered By: Naima Garcia on 03-31-2025 Lymphocytes Auto (Unsp spec) [#/Vol] 2.64 10*3/uL 0.83-4.51 [facility] Absolute neutrophil countOrd ered By: Naima Garcia on 03-31-2025 Neutrophils (Bld) [#/Vol] 3.5 10*3/uL 2.0-7.7 [facility] Anion gap in Serum or Plasma Ordered By: Naima Garcia on 03-31-2025 Anion gap [Moles/Vol] 15 mmol/L 5-15 [facility] Automated lymphocyte count a s percentage of total leukocytesOrdered By: Naima Garcia on 03-31-2025 Lymphocytes/100 WBC Auto (Unsp spec) 37.3 % 19- [facility] BUN/creatinine ratioOrdered By: Naima Garcia on 03-31-2025 Urea nitrogen/Creatinine [Mass ratio] 14.8 mg/mg 10-20 [facility] Basophil percentageOrdered B y: Naima Garcia on 03-31-2025 Basophils/100 WBC (Bld) 0.8 % 0-1 [facility] Bilirubin, totalOrdered By: Naima Garcia on 03-31-2025 Bilirubin [Mass/Vol] 0.44 mg/dL 0.00-1.30 [facility] C-reactive protein measureme nt by high sensitivity methodOrdered By: Naima Garcia on 03-31-2025 C-reactive protein measurement by high sensitivity method 9.59 mg/L High 0.00-3.00 [facility] Comment on above: Relative Risk for Fu ture Cardiovascular Event Low <1.00 Average 1.00 - 3.00 High >3.00Performed at: [facility] [id number] Director: Jony Fitzpatrick PhD, Phone: [phone] CBC W/Diff, Automatedon Absolute Lymph 2.64 X10 3/uL Normal 0.83-4.51 [facility] Comment on above: Performed By: #### L 500.4100, L500.4050, L100.0100 #### [facility] [address] [place], [address] Absolute Neut 3.5 X10 3/uL Normal 2.0-7.7 [facility] Comment on above: Performed By: #### L 500.4100, L500.4050, L100.0100 #### [facility] [address] [place], [address] Basophils/100 WBC (Bld) 0.8 % Normal 0-1 [facility] Comment on above: Performed By: #### L 500.4100, L500.4050, L100.0100 #### [facility] [address] [place], [address] Eosinophils/100 WBC (Bld) 1.4 % Normal 0-5 [facility] Comment on above: Performed By: #### L 500.4100, L500.4050, L100.0100 #### [facility] [address] [place], [address] Erythrocyte distribution width (RBC) [Ratio] 14.1 % Normal 11.6-14.6 [facility] Comment on above: Performed By: #### L 500.4100, L500.4050, L100.0100 #### [facility] [address] [place], [address] Hematocrit (Bld) [Volume fraction] 43.3 % Normal 37-47 [facility] Comment on above: Performed By: #### L 500.4100, L500.4050, L100.0100 #### [facility] [address] [place], [address] Hemoglobin (Bld) [Mass/Vol] 14.2 g/dL Normal 12.0-15.0 [facility] Comment on above: Performed By: #### L 500.4100, L500.4050, L100.0100 #### [facility] [address] [place], [address] IG% 0.400 Normal 0.0-0.9 [facility] Comment on above: Result Comment: IG% - Immature Granulocytes (promyelocytes, myelocytes and metamyelocytes) > 1% indicates that a LEFT SHIFT is Present. Performed By: #### L 500.4100, L500.4050, L100.0100 #### [facility] [address] [place], [address] Lymphocytes/100 WBC (Bld) 37.3 % Normal 19-41 [facility] Comment on above: Performed By: #### L 500.4100, L500.4050, L100.0100 #### [facility] [address] [place], [address] MCH (RBC) [Entitic mass] 30.4 pg Normal 27.0-32.0 [facility] Comment on above: Performed By: #### L 500.4100, L500.4050, L100.0100 #### [facility] [address] [place], [address] MCHC (RBC) [Mass/Vol] 32.8 g/dL Normal 32-36 [facility] Comment on above: Performed By: #### L 500.4100, L500.4050, L100.0100 #### [facility] [address] [place], [address] MCV (RBC) [Entitic vol] 92.7 fL Normal 81-99 [facility] Comment on above: Performed By: #### L 500.4100, L500.4050, L100.0100 #### [facility] [address], [address] Monocytes/100 WBC (Bld) 10.2 % High 0-10 [facility] Comment on above: Performed By: #### L 500.4100, L500.4050, L100.0100 #### [facility] [address] [place], [address] Neutrophils/100 WBC (Bld) 49.9 % Normal 47-70 [facility] Comment on above: Performed By: #### L 500.4100, L500.4050, L100.0100 #### [facility] [address] [place], [address] Nucleated RBC (Bld) [#/Vol] 0 10*3/uL Normal 0-5 [facility] Comment on above: Performed By: #### L 500.4100, L500.4050, L100.0100 #### [facility] [address] [place], [address] Platelet mean volume (Bld) [Entitic vol] 13.9 fL High 6.2-12.0 [facility] Comment on above: Performed By: #### L 500.4100, L500.4050, L100.0100 #### [facility] [address] [place], [address] Platelets (Bld) [#/Vol] 204 10*3/uL Normal 150-450 [facility] Comment on above: Performed By: #### L 500.4100, L500.4050, L100.0100 #### [facility] [address] [place], [address] RBC (Bld) [#/Vol] 4.67 10*6/uL Normal 4.2-5.4 [facility] Comment on above: Performed By: #### L 500.4100, L500.4050, L100.0100 #### [facility] [address] [place], [address] RDW SD 47.2 fl High 35.1-43.9 [facility] Comment on above: Performed By: #### L 500.4100, L500.4050, L100.0100 #### [facility] [address] [place], [address] WBC (Bld) [#/Vol] 7.1 10*3/uL Normal 4.4-11.0 [facility] Comment on above: Performed By: #### L 500.4100, L500.4050, L100.0100 #### [facility] [address] [place], [address] Carbon dioxide, total [Moles /volume] in Central venous bloodOrdered By: Naima Garcia on 03-31-2025 CO2 [Moles/Vol] 19.0 mmol/L Low 21.0-32.0 [facility] Chloride assayOrdered By: Do ra Garcia on 03-31-2025 Chloride [Moles/Vol] 103 mmol/L 98-108 [facility] Comprehensive Metabolic Prof ilon 03-31-2025 Albumin [Mass/Vol] 4.0 g/dL Normal 3.4-4.8 [facility] Comment on above: Performed By: #### L 500.4100, L500.4050, L100.0100 #### [facility] [address] [place], [address] Albumin/Globulin [Mass ratio] 1.4 {ratio} Normal 0.9-2.4 [facility] Comment on above: Performed By: #### L 500.4100, L500.4050, L100.0100 #### [facility] [address] [place], [address] ALK PHOS 130 U/L High 35-104 [facility] Comment on above: Performed By: #### L 500.4100, L500.4050, L100.0100 #### [facility] [address] [place], [address] ALT [Catalytic activity/Vol] 53 U/L High <=34 [facility] Comment on above: Performed By: #### L 500.4100, L500.4050, L100.0100 #### [facility] [address] [place], [address] AST [Catalytic activity/Vol] 28 U/L Normal <=31 [facility] Comment on above: Performed By: #### L 500.4100, L500.4050, L100.0100 #### [facility] [address] [place], [address] Bilirubin [Mass/Vol] 0.44 mg/dL Normal 0.00-1.30 [facility] Comment on above: Performed By: #### L 500.4100, L500.4050, L100.0100 #### [facility] [address] [place], [address] BUN/CRE 14.8 RATIO Normal 10-20 [facility] Comment on above: Performed By: #### L 500.4100, L500.4050, L100.0100 #### [facility] [address] [place], [address] Calcium [Mass/Vol] 9.3 mg/dL Normal 7.6-11.0 [facility] Comment on above: Performed By: #### L 500.4100, L500.4050, L100.0100 #### [facility] [address] [place], [address] Chloride [Moles/Vol] 103 mmol/L Normal 98-108 [facility] Comment on above: Performed By: #### L 500.4100, L500.4050, L100.0100 #### [facility] [address] [place], [address] CO2 [Moles/Vol] 19.0 mmol/L Low 21.0-32.0 [facility] Comment on above: Performed By: #### L 500.4100, L500.4050, L100.0100 #### [facility] [address] [place], [address] Creatinine [Mass/Vol] 0.49 mg/dL Low 0.70-1.20 [facility] Comment on above: Performed By: #### L 500.4100, L500.4050, L100.0100 #### [facility] [address] [place], [address] GAP 15 Normal 5-15 [facility] Comment on above: Performed By: #### L 500.4100, L500.4050, L100.0100 #### [facility] [address] [place], [address] GFR/1.73 sq M.predicted among non-blacks MDRD (S/P/Bld) [Vol rate/Area] 106 mL/min/{1.73_m2} Normal >60 [facility] Comment on above: Result Comment: mL/m in/1.73m2 CKD-EPI Creatinine Equation (2020) Performed By: #### L 500.4100, L500.4050, L100.0100 #### [facility] [address] [place], [address] Globulin (S) [Mass/Vol] 2.9 g/dL Normal 2.2-4.2 [facility] Comment on above: Performed By: #### L 500.4100, L500.4050, L100.0100 #### [facility] [address] [place], [address] Glucose [Mass/Vol] 242 mg/dL High 70-99 [facility] Comment on above: Performed By: #### L 500.4100, L500.4050, L100.0100 #### [facility] [address] [place], [address] Potassium [Moles/Vol] 4.1 mmol/L Normal 3.3-5.1 [facility] Comment on above: Performed By: #### L 500.4100, L500.4050, L100.0100 #### [facility] [address] [place], [address] Sodium [Moles/Vol] 137 mmol/L Normal 133-145 [facility] Comment on above: Performed By: #### L 500.4100, L500.4050, L100.0100 #### [facility] [address] [place], [address] T PROT 6.9 g/dL Normal 5.9-8.4 [facility] Comment on above: Performed By: #### L 500.4100, L500.4050, L100.0100 #### [facility] [address] [place], [address] Urea nitrogen [Mass/Vol] 7 mg/dL Normal 4-19 [facility] Comment on above: Performed By: #### L 500.4100, L500.4050, L100.0100 #### [facility] [address] [place], [address] Eosinophil percentageOrdered By: Naima Garcia on 03-31-2025 Eosinophils/100 WBC (Bld) 1.4 % 0-5 [facility] Erythrocyte distribution wid th ratioOrdered By: Naima Garcia on 03-31-2025 Erythrocyte distribution width (RBC) [Ratio] 14.1 % 11.6-14.6 [facility] Erythrocyte distribution wid th standard deviationOrdered By: Naima Garcia on 03-31-2025 Erythrocyte distribution width (RBC) [Ratio] 47.2 fl High 35.1-43.9 [facility] Glomerular filtration rate ( GFR) estimation/1.73 sq m using serum, plasma, or whole bOrdered By: Naima Garcia on 03-31-2025 GFR/1.73 sq M.predicted among non-blacks MDRD (S/P/Bld) [Vol rate/Area] 106 mL/min/{1.73_m2} >60 [facility] Comment on above: mL/min/1.73m2 CKD-EP I Creatinine Equation (2020) Hematocrit Auto (Bld) [Volum e fraction]Ordered By: Naima Garcia on 03-31-2025 Hematocrit (Bld) [Volume fraction] 43.3 % 37-47 [facility] Hemoglobin A1con 03-31-2025 HbA1c (Bld) [Mass fraction] 12.0 % High <=5.6 [facility] Comment on above: Result Comment: Norm al < 5.7 % Prediabetic 5.7 - 6.4 % Diabetic >or= 6.5 % Please note range changes. Performed By: #### L 500.3940, L500.4050, L100.0100 #### [facility] [address] [place], [address] Hemoglobin A1c percentageOrd ered By: Naima Garcia on 03-31-2025 HbA1c (Bld) [Mass fraction] 12.0 % High <5.7 [facility] Comment on above: Normal < 5.7 % Predi abetic 5.7 - 6.4 % Diabetic >or= 6.5 % Please note range changes. Hemoglobin measurementOrdere d By: Naima Garcia on 03-31-2025 Hemoglobin (Bld) [Mass/Vol] 14.2 g/dL 12.0-15.0 [facility] Immature granulocytes/100 WB C Auto (Bld)Ordered By: Naima Garcia on 03-31-2025 Immature granulocytes/100 WBC (Bld) 0.400 % 0.0-0.9 [facility] Comment on above: IG% - Immature Granu locytes (promyelocytes, myelocytes and metamyelocytes) > 1% indicates that a LEFT SHIFT is Present. Laboratory - Chemistry and C hemistry - challengeOrdered By: Naima Garcia on 03-31-2025 AST [Catalytic activity/Vol] 28 U/L <32 [facility] MCV (mean corpuscular volume ) determinationOrdered By: Naima Garcia on 03-31-2025 MCV (RBC) [Entitic vol] 92.7 fL 81-99 [facility] Mean corpuscular hemoglobin (MCH) determinationOrdered By: Naima Garcia on 03-31-2025 MCH (RBC) [Entitic mass] 30.4 pg 27.0-32.0 [facility] Mean corpuscular hemoglobin concentration (MCHC) determinationOrdered By: Naima Garcia on 03-31-2025 MCHC (RBC) [Mass/Vol] 32.8 g/dL 32-36 [facility] Mean platelet volume determi nationOrdered By: Naima Garcia on 03-31-2025 Platelet mean volume (Bld) [Entitic vol] 13.9 fL High 6.2-12.0 [facility] Monocyte percentageOrdered B y: Naima Garcia on 03-31-2025 Monocytes/100 WBC (Bld) 10.2 % High 0-10 [facility] Neutrophil percentageOrdered By: Naima Garcia on 03-31-2025 Neutrophils/100 WBC (Bld) 49.9 % 47-70 [facility] Nucleated red blood cell per centageOrdered By: Naima Garcia on 03-31-2025 Nucleated RBC/100 WBC (Bld) [Ratio] 0 % 0-5 [facility] Platelet countOrdered By: Do ra Garcia on 03-31-2025 Platelets (Bld) [#/Vol] 204 10*3/uL 150-450 [facility] Potassium measurement (mass/ volume)Ordered By: Naima Garcia on 03-31-2025 Potassium (Unsp spec) [Mass/Vol] 4.1 mmol/L 3.3-5.1 [facility] RBC Auto (Bld) [#/Vol]Ordere d By: Naima Garcia on 03-31-2025 RBC (Bld) [#/Vol] 4.67 10*6/uL 4.2-5.4 [facility] Serum creatinine measurement (mass/volume)Ordered By: Naima Garcia on 03-31-2025 Creatinine [Mass/Vol] 0.49 mg/dL Low 0.70-1.20 [facility] Serum globulin measurementOr dered By: Naima Garcia on 03-31-2025 Globulin (S) [Mass/Vol] 2.9 g/dL 2.2-4.2 [facility] Serum glucose measurement (m ass/volume)Ordered By: Naima Garcia on 03-31-2025 Glucose [Mass/Vol] 242 mg/dL High 70-99 [facility] Serum or plasma alanine lamb otransferase (ALT) measurementOrdered By: Naima Garcia on 03-31-2025 ALT [Catalytic activity/Vol] 53 U/L High <35 [facility] Serum or plasma albumin sylvia urement (mass/volume)Ordered By: Naima Garcia on 03-31-2025 Albumin [Mass/Vol] 4.0 g/dL 3.4-4.8 [facility] Serum or plasma albumin/glob ulin mass ratioOrdered By: Naima Garcia on 03-31-2025 Albumin/Globulin [Mass ratio] 1.4 {ratio} 0.9-2.4 [facility] Serum or plasma alkaline cydney sphatase measurementOrdered By: Naima Garcia on 03-31-2025 ALP [Catalytic activity/Vol] 130 U/L High 35-104 [facility] Serum or plasma calcium sylvia urement (mass/volume)Ordered By: Naima Garcia on 03-31-2025 Calcium [Mass/Vol] 9.3 mg/dL 7.6-11.0 [facility] Serum or plasma urea nitroge n measurement (mass/volume)Ordered By: Naima Garcia on 03-31-2025 Urea nitrogen [Mass/Vol] 7 mg/dL 4-19 [facility] Sodium levelOrdered By: Naima Garcia on 03-31-2025 Sodium [Moles/Vol] 137 mmol/L 133-145 [facility] TSH DL <= 0.005 mIU/L QnOrde red By: Naima Garcia on 03-31-2025 TSH Qn 1.490 uIU/mL 0.300-4.200 [facility] Thyroid Stim Hormone (TSH)on 03-31-2025 TSH 1.490 uIU/mL Normal 0.300-4.200 [facility] Comment on above: Performed By: #### L 503.7505 #### [facility] [address] [place] [address], [id number] Total proteinOrdered By: Jamie Garcia on 03-31-2025 Protein [Mass/Vol] 6.9 g/dL 5.9-8.4 [facility] Troponin T.cardiac [Mass/vol ume] in Serum or Plasma by High sensitivity methodOrdered By: Naima Garcia on 03-31-2025 Troponin T.cardiac High sensitivity method [Mass/Vol] 153 ng/L High <14 [facility] Comment on above: Critical Result(s) C alled at: 1920 by: YUMI NEGRETE TO NAIMA GARCIA Results read back by same. White blood cell (WBC) count Ordered By: Naima Garcia on 03-31-2025 WBC (Bld) [#/Vol] 7.1 10*3/uL 4.4-11.0 [facility] Absolute lymphocyte countOrd ered By: Naima Garcia on 03-20-2025 Lymphocytes Auto (Unsp spec) [#/Vol] 3.30 10*3/uL 0.83-4.51 [facility] Absolute neutrophil countOrd ered By: Naima Garcia on 03-20-2025 Neutrophils (Bld) [#/Vol] 3.0 10*3/uL 2.0-7.7 [facility] Anion gap in Serum or Plasma Ordered By: Naima Garcia on 03-20-2025 Anion gap [Moles/Vol] 12 mmol/L 5-15 [facility] Automated lymphocyte count a s percentage of total leukocytesOrdered By: Naima Garcia on 03-20-2025 Lymphocytes/100 WBC Auto (Unsp spec) 45.0 % High 19-41 [facility] BUN/creatinine ratioOrdered By: Naima Garcia on 03-20-2025 Urea nitrogen/Creatinine [Mass ratio] 22.7 mg/mg High 10-20 [facility] Basophil percentageOrdered B y: Naima Garcia on 03-20-2025 Basophils/100 WBC (Bld) 1.0 % 0-1 [facility] Bilirubin, totalOrdered By: Naima Garcia on 03-20-2025 Bilirubin [Mass/Vol] 0.38 mg/dL 0.00-1.30 [facility] CBC W/Diff, Automatedon 02-23 Absolute Lymph 3.30 X10 3/uL Normal 0.83-4.51 [facility] Comment on above: Performed By: #### L 500.4100, L500.4050, L100.0100 #### [facility] [address] [place], [address] Absolute Neut 3.0 X10 3/uL Normal 2.0-7.7 [facility] Comment on above: Performed By: #### L 500.4100, L500.4050, L100.0100 #### [facility] [address] [place], [address] Basophils/100 WBC (Bld) 1.0 % Normal 0-1 [facility] Comment on above: Performed By: #### L 500.4100, L500.4050, L100.0100 #### [facility] [address] [place], [address] Eosinophils/100 WBC (Bld) 1.2 % Normal 0-5 [facility] Comment on above: Performed By: #### L 500.4100, L500.4050, L100.0100 #### [facility] [address] [place], [address] Erythrocyte distribution width (RBC) [Ratio] 13.6 % Normal 11.6-14.6 [facility] Comment on above: Performed By: #### L 500.4100, L500.4050, L100.0100 #### [facility] [address] [place], [address] Hematocrit (Bld) [Volume fraction] 45.3 % Normal 37-47 [facility] Comment on above: Performed By: #### L 500.4100, L500.4050, L100.0100 #### [facility] [address] [place], [address] Hemoglobin (Bld) [Mass/Vol] 15.0 g/dL Normal 12.0-15.0 [facility] Comment on above: Performed By: #### L 500.4100, L500.4050, L100.0100 #### [facility] [address] [place], [address] IG% 0.100 Normal 0.0-0.9 [facility] Comment on above: Result Comment: IG% - Immature Granulocytes (promyelocytes, myelocytes and metamyelocytes) > 1% indicates that a LEFT SHIFT is Present. Performed By: #### L 500.4100, L500.4050, L100.0100 #### [facility] [address] [place], [address] Lymphocytes/100 WBC (Bld) 45.0 % High 19-41 [facility] Comment on above: Performed By: #### L 500.4100, L500.4050, L100.0100 #### [facility] [address] [place], [address] MCH (RBC) [Entitic mass] 30.4 pg Normal 27.0-32.0 [facility] Comment on above: Performed By: #### L 500.4100, L500.4050, L100.0100 #### [facility] [address] [place], [address] MCHC (RBC) [Mass/Vol] 33.1 g/dL Normal 32-36 [facility] Comment on above: Performed By: #### L 500.4100, L500.4050, L100.0100 #### [facility] [address] [place], [address] MCV (RBC) [Entitic vol] 91.7 fL Normal 81-99 [facility] Comment on above: Performed By: #### L 500.4100, L500.4050, L100.0100 #### [facility] [address] [place], [address] Monocytes/100 WBC (Bld) 11.4 % High 0-10 [facility] Comment on above: Performed By: #### L 500.4100, L500.4050, L100.0100 #### [facility] [address] [place], [address] Neutrophils/100 WBC (Bld) 41.3 % Low 47-70 [facility] Comment on above: Performed By: #### L 500.4100, L500.4050, L100.0100 #### [facility] [address] [place], [address] Nucleated RBC (Bld) [#/Vol] 0 10*3/uL Normal 0-5 [facility] Comment on above: Performed By: #### L 500.4100, L500.4050, L100.0100 #### [facility] [address] [place], [address] Platelet mean volume (Bld) [Entitic vol] 13.6 fL High 6.2-12.0 [facility] Comment on above: Performed By: #### L 500.4100, L500.4050, L100.0100 #### [facility] [address] [place], [address] Platelets (Bld) [#/Vol] 193 10*3/uL Normal 150-450 [facility] Comment on above: Performed By: #### L 500.4100, L500.4050, L100.0100 #### [facility] [address] [place], [address] RBC (Bld) [#/Vol] 4.94 10*6/uL Normal 4.2-5.4 [facility] Comment on above: Performed By: #### L 500.4100, L500.4050, L100.0100 #### [facility] [address] [place], [address] RDW SD 46.1 fl High 35.1-43.9 [facility] Comment on above: Performed By: #### L 500.4100, L500.4050, L100.0100 #### [facility] [address] [place], [address] WBC (Bld) [#/Vol] 7.3 10*3/uL Normal 4.4-11.0 [facility] Comment on above: Performed By: #### L 500.4100, L500.4050, L100.0100 #### [facility] [address] [place], [address] Calculated very low density lipoprotein (VLDL) cholesterol measurementOrdered By: Naima Garcia on 03-20-2025 Calculated very low density lipoprotein (VLDL) cholesterol measurement 76 mg/dL High 5-40 [facility] Carbon dioxide, total [Moles /volume] in Central venous bloodOrdered By: Naima Garcia on 03-20-2025 CO2 [Moles/Vol] 23.3 mmol/L 21.0-32.0 [facility] Chloride assayOrdered By: Do ra Garcia on 03-20-2025 Chloride [Moles/Vol] 100 mmol/L 98-108 [facility] Comprehensive Metabolic Prof ilon 03-20-2025 Albumin [Mass/Vol] 4.3 g/dL Normal 3.4-4.8 [facility] Comment on above: Order Comment: TIME OF COLLECTION UNKNOW Performed By: #### L 500.4100, L500.4050, L100.0100 #### [facility] [address] [place], [address] Albumin/Globulin [Mass ratio] 1.4 {ratio} Normal 0.9-2.4 [facility] Comment on above: Order Comment: TIME OF COLLECTION UNKNOW Performed By: #### L 500.4100, L500.4050, L100.0100 #### [facility] [address] [place], [address] ALK PHOS 131 U/L High 35-104 [facility] Comment on above: Order Comment: TIME OF COLLECTION UNKNOW Performed By: #### L 500.4100, L500.4050, L100.0100 #### [facility] [address] [place], [address] ALT [Catalytic activity/Vol] 21 U/L Normal <=34 [facility] Comment on above: Order Comment: TIME OF COLLECTION UNKNOW Performed By: #### L 500.4100, L500.4050, L100.0100 #### [facility] [address] [place], [address] AST [Catalytic activity/Vol] 17 U/L Normal <=31 [facility] Comment on above: Order Comment: TIME OF COLLECTION UNKNOW Performed By: #### L 500.4100, L500.4050, L100.0100 #### [facility] [address] [place], [address] Bilirubin [Mass/Vol] 0.38 mg/dL Normal 0.00-1.30 [facility] Comment on above: Order Comment: TIME OF COLLECTION UNKNOW Performed By: #### L 500.4100, L500.4050, L100.0100 #### [facility] [address] [place], [address] BUN/CRE 22.7 RATIO High 10-20 [facility] Comment on above: Order Comment: TIME OF COLLECTION UNKNOW Performed By: #### L 500.4100, L500.4050, L100.0100 #### [facility] [address] [place], [address] Calcium [Mass/Vol] 9.5 mg/dL Normal 7.6-11.0 [facility] Comment on above: Order Comment: TIME OF COLLECTION UNKNOW Performed By: #### L 500.4100, L500.4050, L100.0100 #### [facility] [address] [place], [address] Chloride [Moles/Vol] 100 mmol/L Normal 98-108 [facility] Comment on above: Order Comment: TIME OF COLLECTION UNKNOW Performed By: #### L 500.4100, L500.4050, L100.0100 #### [facility] [address] [place], [address] CO2 [Moles/Vol] 23.3 mmol/L Normal 21.0-32.0 [facility] Comment on above: Order Comment: TIME OF COLLECTION UNKNOW Performed By: #### L 500.4100, L500.4050, L100.0100 #### [facility] [address] [place], [address] Creatinine [Mass/Vol] 0.58 mg/dL Low 0.70-1.20 [facility] Comment on above: Order Comment: TIME OF COLLECTION UNKNOW Performed By: #### L 500.4100, L500.4050, L100.0100 #### [facility] [address] [place], [address] GAP 12 Normal 5-15 [facility] Comment on above: Order Comment: TIME OF COLLECTION UNKNOW Performed By: #### L 500.4100, L500.4050, L100.0100 #### [facility] [address] [place], [address] GFR/1.73 sq M.predicted among non-blacks MDRD (S/P/Bld) [Vol rate/Area] 102 mL/min/{1.73_m2} Normal >60 [facility] Comment on above: Order Comment: TIME OF COLLECTION UNKNOW Result Comment: mL/m in/1.73m2 CKD-EPI Creatinine Equation (2020) Performed By: #### L 500.4100, L500.4050, L100.0100 #### [facility] [address] [place], [address] Globulin (S) [Mass/Vol] 3.0 g/dL Normal 2.2-4.2 [facility] Comment on above: Order Comment: TIME OF COLLECTION UNKNOW Performed By: #### L 500.4100, L500.4050, L100.0100 #### [facility] [address] [place], [address] Glucose [Mass/Vol] 250 mg/dL High 70-99 [facility] Comment on above: Order Comment: TIME OF COLLECTION UNKNOW Performed By: #### L 500.4100, L500.4050, L100.0100 #### [facility] [address] [place], [address] Potassium [Moles/Vol] 4.5 mmol/L Normal 3.3-5.1 [facility] Comment on above: Order Comment: TIME OF COLLECTION UNKNOW Performed By: #### L 500.4100, L500.4050, L100.0100 #### [facility] [address] [place], [address] Sodium [Moles/Vol] 136 mmol/L Normal 133-145 [facility] Comment on above: Order Comment: TIME OF COLLECTION UNKNOW Performed By: #### L 500.4100, L500.4050, L100.0100 #### [facility] [address] [place], [address] T PROT 7.2 g/dL Normal 5.9-8.4 [facility] Comment on above: Order Comment: TIME OF COLLECTION UNKNOW Performed By: #### L 500.4100, L500.4050, L100.0100 #### [facility] [address] [place], [address] Urea nitrogen [Mass/Vol] 13 mg/dL Normal 4-19 [facility] Comment on above: Order Comment: TIME OF COLLECTION UNKNOW Performed By: #### L 500.4100, L500.4050, L100.0100 #### [facility] [address] [place], [address] Digoxin Levelon 03-20-2025 DIG 0.76 ng/mL Normal 0.00-2.00 [facility] Comment on above: Performed By: #### L 500.4100, L500.4050, L100.0100 #### [facility] [address] [place], [address] Eosinophil percentageOrdered By: Naima Garcia on 03-20-2025 Eosinophils/100 WBC (Bld) 1.2 % 0-5 [facility] Erythrocyte distribution wid th ratioOrdered By: Naima Garcia on 03-20-2025 Erythrocyte distribution width (RBC) [Ratio] 13.6 % 11.6-14.6 [facility] Erythrocyte distribution wid th standard deviationOrdered By: Naima Garcia on 03-20-2025 Erythrocyte distribution width (RBC) [Ratio] 46.1 fl High 35.1-43.9 [facility] Glomerular filtration rate ( GFR) estimation/1.73 sq m using serum, plasma, or whole bOrdered By: Naima Garcia on 03-20-2025 GFR/1.73 sq M.predicted among non-blacks MDRD (S/P/Bld) [Vol rate/Area] 102 mL/min/{1.73_m2} >60 [facility] Comment on above: mL/min/1.73m2 CKD-EP I Creatinine Equation (2020) Hematocrit Auto (Bld) [Volum e fraction]Ordered By: Naima Garcia on 03-20-2025 Hematocrit (Bld) [Volume fraction] 45.3 % 37-47 [facility] Hemoglobin measurementOrdere d By: Naima Garcia on 03-20-2025 Hemoglobin (Bld) [Mass/Vol] 15.0 g/dL 12.0-15.0 [facility] Immature granulocytes/100 WB C Auto (Bld)Ordered By: Naima Garcia on 03-20-2025 Immature granulocytes/100 WBC (Bld) 0.100 % 0.0-0.9 [facility] Comment on above: IG% - Immature Granu locytes (promyelocytes, myelocytes and metamyelocytes) > 1% indicates that a LEFT SHIFT is Present. LDL calc ser/plasOrdered By: Naima Garcia on 03-20-2025 Cholesterol in LDL [Mass/Vol] 160 mg/dL [facility] Comment on above: Plfusftzve=331-920 m g/dL & Higher Ofgq=287 mg/dL or greater Laboratory - Chemistry and C hemistry - challengeOrdered By: Naima Garcia on 03-20-2025 AST [Catalytic activity/Vol] 17 U/L <32 [facility] Laboratory - Hematology and Cell countsOrdered By: Naima Garcia on 03-20-2025 HbA1c (Bld) [Mass fraction] 11.7 % High 4.2-6.3 [facility] Lipid Profileon 03-20-2025 CHOL:HDL 8.40 Normal [facility] Comment on above: Order Comment: TIME OF COLLECTION UNKNOW Performed By: #### L 500.4100, L500.4050, L100.0100 #### [facility] [address] [place], [address] Cholesterol [Mass/Vol] 268 mg/dL High <=200 [facility] Comment on above: Order Comment: TIME OF COLLECTION UNKNOW Result Comment: Chol esterol level, Desirable <200 mg/dL Borderline high cholesterol 200-239 mg/dL High cholesterol >=240 mg/dL Recommendations of the NCEP Adult Treatment Panel for the following risk-cutoff thresholds for the [place] population. Performed By: #### L 500.4100, L500.4050, L100.0100 #### [facility] [address] [place], [address] Cholesterol in HDL [Mass/Vol] 32 mg/dL Low [facility] Comment on above: Order Comment: TIME OF COLLECTION UNKNOW Result Comment: Sulema onal Cholesterol Education Program (NCEP) guidelines: <40 mg/dL: Low HDL-cholesterol (major risk factor for CHD) >= 60 mg/dL: High HDL-cholesterol (negative risk factor for CHD) HDL-cholesterol is affected by a number of factors, e.g. smoking, exercise, hormones, sex and age. Performed By: #### L 500.4100, L500.4050, L100.0100 #### [facility] [address] [place], [address] Cholesterol in LDL [Mass/Vol] 160 mg/dL Normal [facility] Comment on above: Order Comment: TIME OF COLLECTION UNKNOW Result Comment: Bord ydufxl=638-721 mg/dL Higher Nsos=294 mg/dL or greater Performed By: #### L 500.4100, L500.4050, L100.0100 #### [facility] [address] [place], [address] Cholesterol in VLDL [Mass/Vol] 76 mg/dL High 5-40 [facility] Comment on above: Order Comment: TIME OF COLLECTION UNKNOW Performed By: #### L 500.4100, L500.4050, L100.0100 #### [facility] [address] [place], [address] Triglyceride [Mass/Vol] 380 mg/dL High [facility] Comment on above: Order Comment: TIME OF COLLECTION UNKNOW Result Comment: The drugs N-Acetylcysteine and Metamizole may falsely depress this assay. Normal range: <150 mg/dL Borderline High: 150-199 mg/dL High: 200-499 mg/dL Very High: >500 mg/dL Performed By: #### L 500.4100, L500.4050, L100.0100 #### [facility] [address] [place], [address] MCV (mean corpuscular volume ) determinationOrdered By: Naima Garcia on 03-20-2025 MCV (RBC) [Entitic vol] 91.7 fL 81-99 [facility] Mean corpuscular hemoglobin (MCH) determinationOrdered By: Naima Garcia on 03-20-2025 MCH (RBC) [Entitic mass] 30.4 pg 27.0-32.0 [facility] Mean corpuscular hemoglobin concentration (MCHC) determinationOrdered By: Naima Garcia on 03-20-2025 MCHC (RBC) [Mass/Vol] 33.1 g/dL 32-36 [facility] Mean platelet volume determi nationOrdered By: Naima Garcia on 03-20-2025 Platelet mean volume (Bld) [Entitic vol] 13.6 fL High 6.2-12.0 [facility] Monocyte percentageOrdered B y: Naima Garcia on 03-20-2025 Monocytes/100 WBC (Bld) 11.4 % High 0-10 [facility] Neutrophil percentageOrdered By: Naima Garcia on 03-20-2025 Neutrophils/100 WBC (Bld) 41.3 % Low 47-70 [facility] Nucleated red blood cell per centageOrdered By: Naima Garcia on 03-20-2025 Nucleated RBC/100 WBC (Bld) [Ratio] 0 % 0-5 [facility] Platelet countOrdered By: Do ra Garcia on 03-20-2025 Platelets (Bld) [#/Vol] 193 10*3/uL 150-450 [facility] Potassium measurement (mass/ volume)Ordered By: Naima Garcia on 03-20-2025 Potassium (Unsp spec) [Mass/Vol] 4.5 mmol/L 3.3-5.1 [facility] RBC Auto (Bld) [#/Vol]Ordere d By: Naima Garcia on 03-20-2025 RBC (Bld) [#/Vol] 4.94 10*6/uL 4.2-5.4 [facility] Screening total cholesterol/ high density lipoprotein (HDL) cholesterol ratioOrdered By: Naima Garcia on 03-20-2025 Cholesterol.total/Michelle sterol in HDL [Mass ratio] 8.40 {ratio} [facility] Serum creatinine measurement (mass/volume)Ordered By: Naima Garcia on 03-20-2025 Creatinine [Mass/Vol] 0.58 mg/dL Low 0.70-1.20 [facility] Serum globulin measurementOr dered By: Naima Garcia on 03-20-2025 Globulin (S) [Mass/Vol] 3.0 g/dL 2.2-4.2 [facility] Serum glucose measurement (m ass/volume)Ordered By: Naima Garcia on 03-20-2025 Glucose [Mass/Vol] 250 mg/dL High 70-99 [facility] Serum or plasma alanine lamb otransferase (ALT) measurementOrdered By: Naima Garcia on 03-20-2025 ALT [Catalytic activity/Vol] 21 U/L <35 [facility] Serum or plasma albumin sylvia urement (mass/volume)Ordered By: Naima Garcia on 03-20-2025 Albumin [Mass/Vol] 4.3 g/dL 3.4-4.8 [facility] Serum or plasma albumin/glob ulin mass ratioOrdered By: Naima Garcia on 03-20-2025 Albumin/Globulin [Mass ratio] 1.4 {ratio} 0.9-2.4 [facility] Serum or plasma alkaline cydney sphatase measurementOrdered By: Naima Garcia on 03-20-2025 ALP [Catalytic activity/Vol] 131 U/L High 35-104 [facility] Serum or plasma calcium sylvia urement (mass/volume)Ordered By: Naima Garcia on 03-20-2025 Calcium [Mass/Vol] 9.5 mg/dL 7.6-11.0 [facility] Serum or plasma cholesterol in HDL measurement (mass/volume)Ordered By: Naima Garcia on 03-20-2025 Cholesterol in HDL [Mass/Vol] 32 mg/dL Low >40 [facility] Comment on above: National Cholesterol Education Program (NCEP) guidelines:<40 mg/dL: Low HDL-cholesterol (major risk factor for CHD)>= 60 mg/dL: High HDL-cholesterol (negative risk factor for CHD)HDL-cholesterol is affected by a number of factors, e.g. smoking, exercise, hormones, sex and age. Serum or plasma cholesterol measurement (mass/volume)Ordered By: Naima Garcia on 03-20-2025 Cholesterol [Mass/Vol] 268 mg/dL High <201 [facility] Comment on above: Cholesterol level, D esirable <200 mg/dLBorderline high cholesterol 200-239 mg/dLHigh cholesterol >=240 mg/dLRecommendations of the NCEP Adult Treatment Panel for the following risk-cutoff thresholds for the [place] population. Serum or plasma digoxin sylvia urement (mass/volume)Ordered By: Naima Garcia on 03-20-2025 Digoxin [Mass/Vol] 0.76 ng/mL 0.00-2.00 [facility] Serum or plasma urea nitroge n measurement (mass/volume)Ordered By: Naima Garcia on 03-20-2025 Urea nitrogen [Mass/Vol] 13 mg/dL 4-19 [facility] Sodium levelOrdered By: Naima Garcia on 03-20-2025 Sodium [Moles/Vol] 136 mmol/L 133-145 [facility] Total proteinOrdered By: Jamie Garcia on 03-20-2025 Protein [Mass/Vol] 7.2 g/dL 5.9-8.4 [facility] Triglycerides measurementOrd ered By: Naima Garcia on 03-20-2025 Triglyceride [Mass/Vol] 380 mg/dL High <199 [facility] Comment on above: The drugs N-Acetylcy steine and Metamizole may falsely depress this assay. Normal range: <150 mg/dLBorderline High: 150-199 mg/dLHigh: 200-499 mg/dLVery High: >500 mg/dL White blood cell (WBC) count Ordered By: Naima Garcia on 03-20-2025 WBC (Bld) [#/Vol] 7.3 10*3/uL 4.4-11.0 [facility] Wound Cultureon 12-15-2024 WC DEEP SURGICAL WOUND Copy of report sent to Infection Control Printer [id number] 12/15/24 0177 VSICK. ESBL Escherichia coli Amount Growth 1+ MARKER [...] S Vancomycin Islt HERNANDO 0.5 S Normal [facility] Comment on above: Performed By: #### M 100.3000, M100.2000 ####[facility] [address] [place], [address] Gram Stainon 12-13-2024 GS DEEP SURGICAL WOUND Gram Stain 2+ White Blood Cells 3+ Gram positive cocci No Epithelial cells Normal [facility] Comment on above: Performed By: #### M 100.3000, M100.2000 ####[facility] [address] [place], [place], [address] Gram stainOrdered By: Naima cantor on 12-12-2024 Microscopic observation Gram stain Nom (Unsp spec) [facility] Routine wound cultureOrdered By: Naima Garcia on 12-12-2024 Microbial culture, routine Streptococcus agalactiae (B) Abnormal [facility] Wound Culture ESBL Escherichia coli Abnormal [facility] Wound Culture Streptococcus agalactiae (B) Abnormal [facility] Bedside Glucoseon 12-10-2024 FINGERSTICK GLU 287 mg/dL High 74-106 [facility] Comment on above: Result Comment: [place] DE [place] OF PATIENT CARE PER NURSING PROTOCOL Performed By: #### L 501.080 ####[facility] [address] [place], [place], [address] Absolute lymphocyte countOrd ered By: Sydnee Doran on 12-09-2024 Lymphocytes Auto (Unsp spec) [#/Vol] 2.99 10*3/uL 0.83-4.51 [facility] Absolute neutrophil countOrd ered By: Sydnee Doran on 12-09-2024 Neutrophils (Bld) [#/Vol] 5.0 10*3/uL 2.0-7.7 [facility] Anion gap in Serum or Plasma Ordered By: Sydnee Doran on 12-09-2024 Anion gap [Moles/Vol] 12 mmol/L 02-05 [facility] Automated lymphocyte count a s percentage of total leukocytesOrdered By: Sydnee Doran on 12-09-2024 Lymphocytes/100 WBC Auto (Unsp spec) 32.8 % [facility] BUN/creatinine ratioOrdered By: Sydnee Doran on 12-09-2024 Urea nitrogen/Creatinine [Mass ratio] 17.7 mg/mg - [facility] Basic Metabolic Profile (BMP )on 12-09-2024 BUN/CRE 17.7 RATIO Normal 07-13 [facility] Comment on above: Performed By: #### L 500.4100, L500.4050, L100.0100 #### [facility] [address] [place], [address] Calcium [Mass/Vol] 9.4 mg/dL Normal 7.6-11.0 [facility] Comment on above: Performed By: #### L 500.4100, L500.4050, L100.0100 #### [facility] [address] [place], [address] Chloride [Moles/Vol] 101 mmol/L Normal 98-108 [facility] Comment on above: Performed By: #### L 500.4100, L500.4050, L100.0100 #### [facility] [address] [place], [address] CO2 [Moles/Vol] 19.6 mmol/L Low 21.0-32.0 [facility] Comment on above: Performed By: #### L 500.4100, L500.4050, L100.0100 #### [facility] [address] [place], [address] Creatinine [Mass/Vol] 0.56 mg/dL Low 0.70-1.20 [facility] Comment on above: Performed By: #### L 500.4100, L500.4050, L100.0100 #### [facility] [address] [place], [address] ECRCL 121.87 ml/min Normal 50-250 [facility] Comment on above: Performed By: #### L 500.4100, L500.4050, L100.0100 #### [facility] [address] [place], [address] GAP 12 Normal 5-15 [facility] Comment on above: Performed By: #### L 500.4100, L500.4050, L100.0100 #### [facility] [address] [place], [address] GFR/1.73 sq M.predicted among non-blacks MDRD (S/P/Bld) [Vol rate/Area] 103 mL/min/{1.73_m2} Normal >60 [facility] Comment on above: Result Comment: mL/m in/1.73m2 CKD-EPI Creatinine Equation (2020) Performed By: #### L 500.4100, L500.4050, L100.0100 #### [facility] [address] [place], [address] Glucose [Mass/Vol] 345 mg/dL High 70-99 [facility] Comment on above: Performed By: #### L 500.4100, L500.4050, L100.0100 #### [facility] [address] [place], [address] Potassium [Moles/Vol] 4.0 mmol/L Normal 3.3-5.1 [facility] Comment on above: Performed By: #### L 500.4100, L500.4050, L100.0100 #### [facility] [address] [place], [address] Sodium [Moles/Vol] 133 mmol/L Normal 133-145 [facility] Comment on above: Performed By: #### L 500.4100, L500.4050, L100.0100 #### [facility] [address] [place], [address] Urea nitrogen [Mass/Vol] 10 mg/dL Normal 4-19 [facility] Comment on above: Performed By: #### L 500.4100, L500.4050, L100.0100 #### [facility] [address] [place], [address] Basophil percentageOrdered B y: Sydnee Doran on 12-09-2024 Basophils/100 WBC (Bld) 1.0 % 0-1 [facility] CBC W/Diff, Automatedon 11-22 Absolute Lymph 2.99 X10 3/uL Normal 0.83-4.51 [facility] Comment on above: Performed By: #### L 500.4100, L500.4050, L100.0100 #### [facility] [address] [place], [address] Absolute Neut 5.0 X10 3/uL Normal 2.0-7.7 [facility] Comment on above: Performed By: #### L 500.4100, L500.4050, L100.0100 #### [facility] [address] [place], [address] Basophils/100 WBC (Bld) 1.0 % Normal 0-1 [facility] Comment on above: Performed By: #### L 500.4100, L500.4050, L100.0100 #### [facility] [address] [place], [address] Eosinophils/100 WBC (Bld) 1.0 % Normal 0-5 [facility] Comment on above: Performed By: #### L 500.4100, L500.4050, L100.0100 #### [facility] [address] [place], [address] Erythrocyte distribution width (RBC) [Ratio] 13.8 % Normal 11.6-14.6 [facility] Comment on above: Performed By: #### L 500.4100, L500.4050, L100.0100 #### [facility] [address] [place], [address] Hematocrit (Bld) [Volume fraction] 44.9 % Normal 37-47 [facility] Comment on above: Performed By: #### L 500.4100, L500.4050, L100.0100 #### [facility] [address] [place], [address] Hemoglobin (Bld) [Mass/Vol] 14.8 g/dL Normal 12.0-15.0 [facility] Comment on above: Performed By: #### L 500.4100, L500.4050, L100.0100 #### [facility] [address] [place], [address] IG% 0.400 Normal 0.0-0.9 [facility] Comment on above: Result Comment: IG% - Immature Granulocytes (promyelocytes, myelocytes and metamyelocytes) > 1% indicates that a LEFT SHIFT is Present. Performed By: #### L 500.4100, L500.4050, L100.0100 #### [facility] [address] [place], [address] Lymphocytes/100 WBC (Bld) 32.8 % Normal 19-41 [facility] Comment on above: Performed By: #### L 500.4100, L500.4050, L100.0100 #### [facility] [address] [place], [address] MCH (RBC) [Entitic mass] 29.9 pg Normal 27.0-32.0 [facility] Comment on above: Performed By: #### L 500.4100, L500.4050, L100.0100 #### [facility] [address] [place], [address] MCHC (RBC) [Mass/Vol] 33.0 g/dL Normal 32-36 [facility] Comment on above: Performed By: #### L 500.4100, L500.4050, L100.0100 #### [facility] [address] [place], [address] MCV (RBC) [Entitic vol] 90.7 fL Normal 81-99 [facility] Comment on above: Performed By: #### L 500.4100, L500.4050, L100.0100 #### [facility] [address] [place], [address] Monocytes/100 WBC (Bld) 10.4 % High 0-10 [facility] Comment on above: Performed By: #### L 500.4100, L500.4050, L100.0100 #### [facility] [address] [place], [address] Neutrophils/100 WBC (Bld) 54.4 % Normal 47-70 [facility] Comment on above: Performed By: #### L 500.4100, L500.4050, L100.0100 #### [facility] [address] [place], [address] Nucleated RBC (Bld) [#/Vol] 0 10*3/uL Normal 0-5 [facility] Comment on above: Performed By: #### L 500.4100, L500.4050, L100.0100 #### [facility] [address] [place], [address] Platelet mean volume (Bld) [Entitic vol] 12.7 fL High 6.2-12.0 [facility] Comment on above: Performed By: #### L 500.4100, L500.4050, L100.0100 #### [facility] [address] [place], [address] Platelets (Bld) [#/Vol] 218 10*3/uL Normal 150-450 [facility] Comment on above: Performed By: #### L 500.4100, L500.4050, L100.0100 #### [facility] [address] [place], [address] RBC (Bld) [#/Vol] 4.95 10*6/uL Normal 4.2-5.4 [facility] Comment on above: Performed By: #### L 500.4100, L500.4050, L100.0100 #### [facility] [address] [place], [address] RDW SD 45.8 fl High 35.1-43.9 [facility] Comment on above: Performed By: #### L 500.4100, L500.4050, L100.0100 #### [facility] [address] [place], [address] WBC (Bld) [#/Vol] 9.1 10*3/uL Normal 4.4-11.0 [facility] Comment on above: Performed By: #### L 500.4100, L500.4050, L100.0100 #### [facility] [address] [place], [address] Carbon dioxide, total [Moles /volume] in Central venous bloodOrdered By: Sydnee Doran on 12-09-2024 CO2 [Moles/Vol] 19.6 mmol/L Low 21.0-32.0 [facility] Chloride assayOrdered By: Mariya Doran on 12-09-2024 Chloride [Moles/Vol] 101 mmol/L 98-108 [facility] Emergency Department Summary on 12-09-2024 Emergency Department Summary [facility] Medical Records Department [address] [place] [address] Emergency Department Summary 12/09/24 MR#: [id number] Acct: [id number] Name: EAMON HUSTON Rep #: [id number] : 1960 64 From: Sydnee GUTIERRES PCP: Naima Garcia EXERCISE RIDER-C Status:DEP ER Location: ED HPI History of [...] does report a history of uncontrolled diabetes. [facility] Medical History ESBL (extended spectrum beta-lactamase) producing [...] Type Severity Reaction Status Date / Time Upusjyv-PMZ-YdA Reductase Allergy Intermediate cramps Verified 12/09/24 19:24 Inhibitor (Rjvobuh-Dvg-Xif Reductase Inhibitor) Family History Sister Breast cancer [...] well de (more content not included)... Normal [facility] Eosinophil percentageOrdered By: Sydnee Doran on 12-09-2024 Eosinophils/100 WBC (Bld) 1.0 % 0-5 [facility] Erythrocyte distribution wid th ratioOrdered By: Sydnee Doran on 12-09-2024 Erythrocyte distribution width (RBC) [Ratio] 13.8 % 11.6-14.6 [facility] Erythrocyte distribution wid th standard deviationOrdered By: Sydnee Doran on 12-09-2024 Erythrocyte distribution width (RBC) [Entitic vol] 45.8 fL High 35.1-43.9 [facility] Erythrocyte distribution width (RBC) [Ratio] 45.8 fl High 35.1-43.9 [facility] Estimation of creatinine joanna aranceOrdered By: Sydnee Doran on 12-09-2024 Estimated Creatinine Clearance Calc 121.87 ml/min 50-250 [facility] GFR/1.73 sq M.predicted rachel g non-blacks MDRD (S/P/Bld) [Vol rate/Area]Ordered By: Sydnee Doran on 12-09-2024 Estimated GFR (MDRD) Non-Af Amer 103 >60 [facility] Comment on above: mL/min/1.73m2 CKD-EP I Creatinine Equation (2020) Glomerular filtration rate ( GFR) estimation/1.73 sq m using serum, plasma, or whole bOrdered By: Sydnee Doran on 12-09-2024 GFR/1.73 sq M.predicted among non-blacks MDRD (S/P/Bld) [Vol rate/Area] 103 mL/min/{1.73_m2} >60 [facility] Comment on above: mL/min/1.73m2 CKD-EP I Creatinine Equation (2020) [facility] deOrdered By: Nik Bundy on 12-09-2024 Bedside Glucose (Misc Panel) 287 mg/dL High 74-106 [facility] Comment on above: MANAGEMENT OF PATIEN T CARE PER NURSING PROTOCOL Glucose [Mass/Vol] 287 mg/dL High 74-106 [facility] Comment on above: MANAGEMENT OF PATIEN T CARE PER NURSING PROTOCOL Hematocrit Auto (Bld) [Volum e fraction]Ordered By: Sydnee Doran on 12-09-2024 Hematocrit (Bld) [Volume fraction] 44.9 % 37-47 [facility] Hemoglobin measurementOrdere d By: Sydnee Doran on 12-09-2024 Hemoglobin (Bld) [Mass/Vol] 14.8 g/dL 12.0-15.0 [facility] Immature granulocytes/100 WB C Auto (Bld)Ordered By: Sydnee Doran on 12-09-2024 Immature granulocytes/100 WBC (Bld) 0.400 % 0.0-0.9 [facility] Comment on above: IG% - Immature Granu locytes (promyelocytes, myelocytes and metamyelocytes) > 1% indicates that a LEFT SHIFT is Present. Lymphocytes Auto (Unsp spec) [#/Vol]Ordered By: Sydnee Doran on 12-09-2024 Lymphocytes (Bld) [#/Vol] 2.99 10*3/uL 0.83-4.51 [facility] Lymphocytes/100 WBC Auto (Un sp spec)Ordered By: Sydnee Doran on 12-09-2024 Lymphocytes/100 WBC (Bld) 32.8 % 19-41 [facility] MCV (mean corpuscular volume ) determinationOrdered By: Sydnee Doran on 12-09-2024 MCV (RBC) [Entitic vol] 90.7 fL 81-99 [facility] Mean corpuscular hemoglobin (MCH) determinationOrdered By: Sydnee Doran on 12-09-2024 MCH (RBC) [Entitic mass] 29.9 pg 27.0-32.0 [facility] Mean corpuscular hemoglobin concentration (MCHC) determinationOrdered By: Sydnee Doran on 12-09-2024 MCHC (RBC) [Mass/Vol] 33.0 g/dL 32-36 [facility] Mean platelet volume determi nationOrdered By: Sydnee Doran on 12-09-2024 Platelet mean volume (Bld) [Entitic vol] 12.7 fL High 6.2-12.0 [facility] Monocyte percentageOrdered B y: Sydnee Doran on 12-09-2024 Monocytes/100 WBC (Bld) 10.4 % High 0-10 [facility] Neutrophil percentageOrdered By: Sydnee Doran on 12-09-2024 Neutrophils/100 WBC (Bld) 54.4 % 47-70 [facility] Nucleated red blood cell per centageOrdered By: Sydnee Doran on 12-09-2024 Nucleated RBC/100 WBC (Bld) [Ratio] 0 % 0-5 [facility] Platelet countOrdered By: Mariya Doran on 12-09-2024 Platelets (Bld) [#/Vol] 218 10*3/uL 150-450 [facility] Potassium (Unsp spec) [Mass/ Vol]Ordered By: Sydnee Doran on 12-09-2024 Potassium [Moles/Vol] 4.0 mmol/L 3.3-5.1 [facility] Potassium measurement (mass/ volume)Ordered By: Sydnee Doran on 12-09-2024 Potassium (Unsp spec) [Mass/Vol] 4.0 mmol/L 3.3-5.1 [facility] RBC Auto (Bld) [#/Vol]Ordere d By: Sydnee Doran on 12-09-2024 RBC (Bld) [#/Vol] 4.95 10*6/uL 4.2-5.4 [facility] Serum creatinine measurement (mass/volume)Ordered By: Sydnee Doran on 12-09-2024 Creatinine [Mass/Vol] 0.56 mg/dL Low 0.70-1.20 [facility] Serum glucose measurement (m ass/volume)Ordered By: Sydnee Doran on 12-09-2024 Glucose [Mass/Vol] 345 mg/dL High 70-99 [facility] Serum or plasma calcium sylvia urement (mass/volume)Ordered By: Sydnee Doran on 12-09-2024 Calcium [Mass/Vol] 9.4 mg/dL 7.6-11.0 [facility] Serum or plasma urea nitroge n measurement (mass/volume)Ordered By: Sydnee Doran on 12-09-2024 Urea nitrogen [Mass/Vol] 10 mg/dL 4-19 [facility] Sodium levelOrdered By: Polo Doran on 12-09-2024 Sodium [Moles/Vol] 133 mmol/L 133-145 [facility] White blood cell (WBC) count Ordered By: Sydnee Doran on 12-09-2024 WBC (Bld) [#/Vol] 9.1 10*3/uL 4.4-11.0 [facility] 10-07-2024 [facility] Telephone (AKED) EAMON HUSTON ([id number]) 1960 F Date Time Provider Department 10/07/24 ELLE DONG During your visit today, we recorded the following information about you: Elle Dong RPh 10/07/2024 12:26 PM Signed Emergency Department Culture Callback Service Patient Name: Eamon Huston Date of Callback: 10/07/2024 Pharmacist spoke [...] with any issues or questions. Electronic signature: Elle Dong RPh October 07, 2024 12:26 PM Pager/Extension: [phone] Allergies As of Date: 10/07/2024 Noted Allergy Reaction YCXVGEH-LJP-FKC REDUCTASE INHIBIT*09/28/2021 14 - Other: See Comments Date Reviewed: 10/03/2024 Reviewed by: Joslyn Ngo RN - Fully Assessed Reason for Visit: Results [95] Prescriptions as of 10/07/2024 - amoxicillin-clavulan ate potassium (AUGMENTIN) 875-125 mg per tablet Take 1 tablet by mouth two times a day for 10 days. Meds Comments as of 10/03/2024: Pt reports she takes medications but unsure what she takes 10/03/24 Problem List As Of Date: 10/07/2024 (None) Encounter Status:Closed by ELLE DONG on 10/07/24 Normal [facility] Urine Cultureon 10-06-2024 [facility] Copy of report sent to Infection Control Printer MS#[id number] 10/06/24 0852 GIL. ESBL Escherichia coli [place] Count 25,000-50,000 MARKER ESBL producing OrganismA MARKER [...] Meropenem Islt HERNANDO <=0.25 S Nitrofurantoin Islt HERNANDO <=16 S Pip+Tazo Islt HERNANDO 8 S Tobramycin Islt HERNANDO >=16 R TMP SMX Islt HERNANDO >=320 R Minocycline Islt HERNANDO <=0.5 S Normal [facility] Comment on above: Performed By: #### M 100.1287 ####[facility] [id number]. 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 Bacteria Ur Culton Bacteria identified Cx Nom [...] , Intermediate >32 , Resistant >64 Abnormal [facility] Comment on above: Performed By: #### 6 30-4 #### [facility] CLIA [id number] [address] STATES OF [facility] CBC W Auto Differential pane l (Bld)on 10-03-2024 Basophils (Bld) [#/Vol] 0.04 10*3/uL Normal <0.11 [facility] Comment on above: Order Comment: Speci men Type: BLOOD SPECIMEN Ordering Facility: [facility] Address: [address] [place] [address] Performed By: #### 5 7021-8 #### [facility] CLIA [id number] [address] [place] [address] [place] Basophils/100 WBC (Bld) 0.4 % Normal [facility] Comment on above: Order Comment: Speci men Type: BLOOD SPECIMEN Ordering Facility: [facility] Address: [address] [place] [address] Performed By: #### 5 7021-8 #### [facility] CLIA [id number] [address] [place] [address] OF [facility] Differential cell count method Nom (Bld) Auto Normal [facility] Comment on above: Order Comment: Speci men Type: BLOOD SPECIMEN Ordering Facility: [facility] Address: [address] [place] [address] Performed By: #### 5 7021-8 #### [facility] CLIA [id number] [address] [place] [address] [place] Eosinophils (Bld) [#/Vol] 10*3/uL Normal <0.46 [facility] Comment on above: Order Comment: Speci men Type: BLOOD SPECIMEN Ordering Facility: [facility] Address: [address] [place] [address] Performed By: #### 5 7021-8 #### [facility] CLIA [id number] [address] [place] Eosinophils/100 WBC (Bld) 0.1 % Normal [facility] Comment on above: Order Comment: Speci men Type: BLOOD SPECIMEN Ordering Facility: [facility] Address: [address] [place] [address] Performed By: #### 5 7021-8 #### [facility] CLIA [id number] [address] [place] [address] [place] Erythrocyte distribution width (RBC) [Ratio] 13.5 % Normal 11.5-15.0 [facility] Comment on above: Order Comment: Speci men Type: BLOOD SPECIMEN Ordering Facility: [facility] Address: [address] [place] [address] Performed By: #### 5 7021-8 #### [facility] CLIA [id number] [address] [place] [address] [place] Hematocrit (Bld) [Volume fraction] 44.7 % Normal 36.0-46.0 [facility] Comment on above: Order Comment: Speci men Type: BLOOD SPECIMEN Ordering Facility: [facility] Address: [address] [place] [address] Performed By: #### 5 7021-8 #### [facility] CLIA [id number] [address] [place] [address] [place] Hemoglobin (Bld) [Mass/Vol] 14.5 g/dL Normal 11.5-15.5 [facility] Comment on above: Order Comment: Speci men Type: BLOOD SPECIMEN Ordering Facility: [facility] Address: [address] [place] [address] Performed By: #### 5 7021-8 #### [facility] CLIA [id number] [address] [place] [address] [place] Immature granulocytes (Bld) [#/Vol] 0.05 10*3/uL Normal <0.10 [facility] Comment on above: Order Comment: Speci men Type: BLOOD SPECIMEN Ordering Facility: [facility] Address: [address] [place] [address] Performed By: #### 5 7021-8 #### [facility] CLIA [id number] [address] [place], [place] [address] [place] [address] [place] Immature granulocytes/100 WBC (Bld) 0.4 % Normal [facility] Comment on above: Order Comment: Speci men Type: BLOOD SPECIMEN Ordering Facility: [facility] Address: [address] [place] [address] Performed By: #### 5 7021-8 #### [facility] CLIA [id number] [address] [place] [address] [place] Lymphocytes (Bld) [#/Vol] 1.17 10*3/uL Normal 1.00-4.00 [facility] Comment on above: Order Comment: Speci men Type: BLOOD SPECIMEN Ordering Facility: [facility] Address: [address] [place] [address] Performed By: #### 5 7021-8 #### [facility] CLIA [id number] [address] OF [place] Lymphocytes/100 WBC (Bld) 10.5 % Normal [facility] Comment on above: Order Comment: Speci men Type: BLOOD SPECIMEN Ordering Facility: [facility] Address: [address] [place] [address] Performed By: #### 5 7021-8 #### [facility] CLIA [id number] [address] [place] [address] [place] MCH (RBC) [Entitic mass] 30.3 pg Normal 26.0-34.0 [facility] Comment on above: Order Comment: Speci men Type: BLOOD SPECIMEN Ordering Facility: [facility] Address: [address] [place] [address] Performed By: #### 5 7021-8 #### [facility] CLIA [id number] [address] [place] MCHC (RBC) [Mass/Vol] 32.4 g/dL Normal 30.5-36.0 [facility] Comment on above: Order Comment: Speci men Type: BLOOD SPECIMEN Ordering Facility: [facility] Address: [address] [place] [address] Performed By: #### 5 7021-8 #### [facility] CLIA [id number] [address] OF [facility] MCV (RBC) [Entitic vol] 93.5 fL Normal 80.0-100.0 [facility] Comment on above: Order Comment: Speci men Type: BLOOD SPECIMEN Ordering Facility: [facility] Address: [address] [place] [address] Performed By: #### 5 7021-8 #### [facility] CLIA [id number] [address] OF [place] Monocytes (Bld) [#/Vol] 1.02 10*3/uL High <0.87 [facility] Comment on above: Order Comment: Speci men Type: BLOOD SPECIMEN Ordering Facility: [facility] Address: [address] [place] [address] Performed By: #### 5 7021-8 #### [facility] CLIA [id number] [address] OF [place] Monocytes/100 WBC (Bld) 9.1 % Normal A [facility] Comment on above: Order Comment: Speci men Type: BLOOD SPECIMEN Ordering Facility: [facility] Address: [address] [place] [address] Performed By: #### 5 7021-8 #### [facility] CLIA [id number] [address] [place] [address] [place] Neutrophils (Bld) [#/Vol] 8.90 10*3/uL High 1.45-7.50 [facility] Comment on above: Order Comment: Speci men Type: BLOOD SPECIMEN Ordering Facility: [facility] Address: [address] [place] [address] Performed By: #### 5 7021-8 #### [facility] CLIA [id number] [address] [place] [address] [place] Neutrophils/100 WBC (Bld) 79.5 % Normal [facility] Comment on above: Order Comment: Speci men Type: BLOOD SPECIMEN Ordering Facility: [facility] Address: [address] [place] [address] Performed By: #### 5 7021-8 #### [facility] CLIA [id number] [address] [place] [address] [place] Nucleated RBC (Bld) [#/Vol] Normal [facility] Comment on above: Order Comment: Speci men Type: BLOOD SPECIMEN Ordering Facility: [facility] Address: [address] [place] [address] Performed By: #### 5 7021-8 #### [facility] CLIA [id number] [address] [place] [address] [place] Nucleated RBC/100 WBC (Bld) [Ratio] Normal [facility] Comment on above: Order Comment: Speci men Type: BLOOD SPECIMEN Ordering Facility: [facility] Address: [address] [place] [address] Performed By: #### 5 7021-8 #### [facility] CLIA [id number] [address] [place] [address] [place] Platelet mean volume (Bld) [Entitic vol] 11.9 fL Normal 9.0-12.7 [facility] Comment on above: Order Comment: Speci men Type: BLOOD SPECIMEN Ordering Facility: [facility] Address: [address] [place] [address] Performed By: #### 5 7021-8 #### [facility] CLIA [id number] [address] [place] [address] [facility] Platelets (Bld) [#/Vol] 215 10*3/uL Normal 150-400 [facility] Comment on above: Order Comment: Speci men Type: BLOOD SPECIMEN Ordering Facility: [facility] Address: [address] [place] [address] Performed By: #### 5 7021-8 #### [facility] CLIA [id number] [address] OF [facility] RBC (Bld) [#/Vol] 4.78 10*6/uL Normal 3.90-5.20 [facility] Comment on above: Order Comment: Speci men Type: BLOOD SPECIMEN Ordering Facility: [facility] Address: [address] [place] [address] Performed By: #### 5 7021-8 #### [facility] CLIA [id number] [address] [place] [address] WBC (Bld) [#/Vol] 11.19 10*3/uL High 3.70-11.00 [facility] Comment on above: Order Comment: Speci men Type: BLOOD SPECIMEN Ordering Facility: [facility] Address: [address] [place] [address] Performed By: #### 5 7021-8 #### [facility] CLIA [id number] [address] OF [place] CT ABD/PEL WO IVCONon 2024 CT ABD/PEL WO IVCON * * *Final Report* * * DATE OF EXAM: Oct 03 2024 8:11PM [facility] 0531 - CT ABD/PEL WO IVCON / [...] Diverticulosis. 5. 1.4 cm left adrenal nodule. Php Mysql Web Developer: PSCB Transcribe Date/Time: Oct 03 2024 8:19P Dictated by : ANTELMO GABRIEL MD This examination was interpreted and the report reviewed and electronically signed by: ANTELMO GABRIEL MD on Oct 03 2024 8:25PM EST [id number] CN Normal [facility] Comprehensive metabolic 2000 panelon 10-03-2024 Albumin [Mass/Vol] 3.8 g/dL Low 3.9-4.9 [facility] Comment on above: Order Comment: Speci men Type: BLOOD SPECIMEN Ordering Facility: [facility] Address: [address] [place] [address] Performed By: #### 3 040-3, , #### [facility] CLIA [id number] [address] [place] [address] [place] ALP [Catalytic activity/Vol] 113 U/L Normal 34-123 [facility] Comment on above: Order Comment: Speci men Type: BLOOD SPECIMEN Ordering Facility: [facility] Address: [address] [place] [address] Performed By: #### 3 040-3, , #### [facility] CLIA [id number] [address] [place] [address] [place] ALT With P-5'-P [Catalytic activity/Vol] 24 U/L Normal 7-38 [facility] Comment on above: Order Comment: Speci men Type: BLOOD SPECIMEN Ordering Facility: [facility] Address: [address] [place] [address] Performed By: #### 3 040-3, , #### [facility] CLIA [id number] [address] [place] [address] [place] Anion gap [Moles/Vol] 17 mmol/L High 8-15 [facility] Comment on above: Order Comment: Speci men Type: BLOOD SPECIMEN Ordering Facility: [facility] Address: [address] [place] [address] Performed By: #### 3 040-3, , #### [facility] CLIA [id number] [address] [place] [address] [place] AST With P-5'-P [Catalytic activity/Vol] 37 U/L High 13-35 [facility] Comment on above: Order Comment: Speci men Type: BLOOD SPECIMEN Ordering Facility: [facility] Address: [address] [place] [address] Performed By: #### 3 040-3, , #### [facility] CLIA [id number] [address] [place] [address] [place] Bilirubin [Mass/Vol] 0.6 mg/dL Normal 0.2-1.3 [facility] Comment on above: Order Comment: Speci men Type: BLOOD SPECIMEN Ordering Facility: [facility] Address: [address] [place] [address] Performed By: #### 3 040-3, , #### [facility] CLIA [id number] [address] [place] [address] [place] Calcium [Mass/Vol] 9.2 mg/dL Normal 8.5-10.2 [facility] Comment on above: Order Comment: Speci men Type: BLOOD SPECIMEN Ordering Facility: [facility] Address: [address] [place] [address] Performed By: #### 3 040-3, , #### [facility] CLIA [id number] [address] [place] [address] [place] Chloride [Moles/Vol] 94 mmol/L Low 98-107 [facility] Comment on above: Order Comment: Speci men Type: BLOOD SPECIMEN Ordering Facility: [facility] Address: [address] [place] [address] Performed By: #### 3 040-3, , #### [facility] CLIA [id number] [address] [place] [address] [place] CO2 [Moles/Vol] 20 mmol/L Low 22-30 [facility] Comment on above: Order Comment: Speci men Type: BLOOD SPECIMEN Ordering Facility: [facility] Address: [address] [place] [address] Performed By: #### 3 040-3, , #### [facility] CLIA [id number] [address] [place] [address] [place] Creatinine [Mass/Vol] 0.60 mg/dL Normal 0.58-0.96 [facility] Comment on above: Order Comment: Stephanie taylor Type: BLOOD SPECIMEN Ordering Facility: [facility] Address: [address] [place] [address] Performed By: #### 3 040-3, , #### [facility] CLIA [id number] [address] [place] [address] [facility] Creatinine and Glomerular filtration rate.predicted panel (S/P/Bld) 102 mL/min/1.73m??? Normal >=60 [facility] Comment on above: Order [facility]: [facility] Type: BLOOD SPECIMEN Ordering Facility: [facility] Address: [address] [place] [address] Result Comment: Alanis mated Glomerular Filtration Rate [...] Performed By: #### 3 040-3, , #### [facility] CLIA [id number] [address] [place] [address] [place] Glucose [Mass/Vol] 269 mg/dL High 74-99 [facility] Comment on above: Order Comment: Stephanie brandon Type: BLOOD SPECIMEN Ordering Facility: [facility] Address: [address] [place] [address] Result Comment: The [place] [employer] (ADA) provides guidance for cutoff [...] Standards of Medical Care in Diabetes 2016, [place] [employer]. Diabetes Care. 2016.39(Suppl 1). Performed By: #### 3 040-3, , #### [facility] CLIA [id number] [address] [place] [address] [place] Potassium [Moles/Vol] 3.9 mmol/L Normal 3.7-5.1 [facility] Comment on above: Order Comment: Stephanie taylor Type: BLOOD SPECIMEN Ordering Facility: [facility] Address: [address] [place] [address] Performed By: #### 3 040-3, , #### [facility] CLIA [id number] [address] [place] [address] [place] Protein [Mass/Vol] 7.0 g/dL Normal 6.3-8.0 [facility] Comment on above: Order Comment: Stephanie taylor Type: BLOOD SPECIMEN Ordering Facility: [facility] Address: [address] [place] [address] Performed By: #### 3 040-3, , #### [facility] CLIA [id number] [address] [place] [address] [place] Sodium [Moles/Vol] 131 mmol/L Low 136-144 [facility] Comment on above: Order Comment: Evai brandon Type: BLOOD SPECIMEN Ordering Facility: [facility] Address: [address] [place] [address] Performed By: #### 3 040-3, , #### [facility] CLIA [id number] [address] [place] [address] [place] Urea nitrogen [Mass/Vol] 16 mg/dL Normal 7-21 [facility] Comment on above: Order Comment: Evai men Type: BLOOD SPECIMEN Ordering Facility: [facility] Address: [facility] [place] [address] Performed By: #### 3 040-3, 43068-3, 75673-0 #### [facility] CLIA [id number] [address] [place], [place] [address] [place] ECG COMPLETEon 10-03-2024 ECG COMPLETE Ventricular Rate : 93 BPM Atrial Rate : 93 BPM P-R Interval : 118 ms QRS Duration : 124 ms Q-T Interval : 424 ms QTC Calculation(Bazett) : 527 ms Calculated P [place] : 68 degrees Calculated R [place] : -74 degrees Calculated T [place] : 111 degrees Atrial-sensed ventricular-paced rhythm ABNORMAL ECG NO PREVIOUS ECGS AVAILABLE Confirmed by MD GOODWIN VINAYAK ([id number]) on 10/04/2024 11:59:45 PM NAME : EAMON HUSTON PID : [id number] : 1960 Gender : Female Race : ORD : [id number] Procedure Date : Oct 03 2024 18:12:37 Edit Date : Oct 04 2024 23:59:45 Diagnosis: Atrial-sensed ventricular-paced rhythm ABNORMAL ECG NO PREVIOUS ECGS AVAILABLE Confirmed by MD GOODWIN VINAYAK ([id number]) on 10/04/2024 11:59:45 PM Test Reason : Chest Pain Location : 191 : [facility] ED Overread By : MD GOODWIN VINAYAK Edited By : MD GOODWIN VINAYAK Referred By : , Acquired by : SANJAY SEAY [facility] ED NOTEon 10-03-2024 ED NOTE HNO ID: [id number] Author: JOSLYN NGO, RN Service: Emergency Medicine Author Type: Registered [...] alert and oriented, ambulates to room 10. Normal [facility] ED PROV NOTEon 10-03-2024 ED PROV NOTE HNO ID: [id number] Author: FARRAH WELDON MD Service: Emergency Medicine Author Type: Physician Type: ED Provider Notes Filed: 10/03/2024 21:05 Note Text: ED Provider Note Patient Name: Eamon Huston : 1960 SERVICE DATE: 10/03/24 History [...] chills. History provided by: Patient and spouse ship/rec/doc control used: No PAST MEDICAL HISTORY Diagnosis Date [...] activity: Not on file ALLERGIES Allergen Reactions Gazczup-Zjd-Fsn Red* Other: See Comments Review of Systems [...] (*) 16 (more content not included)... Normal [facility] Laboratory - Chemistry and C hemistry - challengeon 10-03-2024 Bilirubin Ql (U) Negative [facility] Glucose Ql (U) 500 g/dL [facility] Ketones Ql (U) Small (15+) [facility] pH (U) 6.0 [pH] [facility] Specific gravity (U) [Rel density] 1.020 [facility] Urobilinogen (U) [Mass/Vol] 0.5133361 mg/dL [facility] - Hematology and Cell countson 10-03-2024 HbA1c (Bld) [Mass fraction] 11.8 % High 4.2-6.3 [facility] Hemoglobin Ql (U) Moderate [facility] - Specimen inform ationon 10-03-2024 Clarity (U) Cloudy [facility] Color (U) YELLOW [facility] - Urinalysison Nitrite Ql (U) Negative [facility] Protein Ql (U) Negative [facility] Lipase SerPl-cCncon 10-03-19 25 Lipase [Catalytic activity/Vol] 15 U/L Low 16-61 [facility] Comment on above: Order Comment: Speci men Type: BLOOD SPECIMEN Ordering Facility: [facility] Address: [address] [place] [address] Performed By: #### 3 040-3, 75211-1, 81395-5 #### [facility] CLIA [id number] [address] [place] [address] [place] Magnesium SerPl-mCncon 10-03 Magnesium [Mass/Vol] 2.1 mg/dL Normal 1.7-2.3 [facility] Comment on above: Order Comment: Speci men Type: BLOOD SPECIMENOrdering Facility: [facility] Address: [address] [place] [address] Performed By: #### 3 040-3, 20545-1, 72560-3 ####[facility] [id number] [place] [address] [facility] No Panel Informationon 10-03 Urine Leukocytes Negatve [facility] Urine Non-Hemolyzed Blood [facility] SEPSIS LACTATE W/ REFLEX (IN ITIAL)on 10-03-2024 Lactate [Moles/Vol] 1.3 mmol/L Normal <=2.0 [facility] Comment on above: Order Comment: Speci men Type: BLOOD SPECIMENOrdering Facility: [facility] Address: [address] [place] [address] Performed By: #### S LACTR ####[facility] [id number] [place] [address] [facility] Urinalysis complete panel (U )on 10-03-2024 Bacteria LM.HPF (Urine sed) [#/Area] Few Abnormal None Seen [facility] Comment on above: Order Comment: Speci men Type: URINE SPECIMEN Ordering Facility: [facility] Address: [address] [place] [address] Performed By: #### 2 4356-8 #### [facility] CLIA [id number] [address] Bilirubin Ql (U) 1+ Abnormal Negative [facility] Comment on above: Order Comment: Speci men Type: URINE SPECIMEN Ordering Facility: [facility] Address: [address] [place] [address] Result Comment: Sugg est correlation with clinical findings and serum bilirubin if clinically indicated. Performed By: #### 2 4356-8 #### [facility] CLIA [id number] [address] [place] [address] [facility] Clarity (Unsp spec) Slightly Cloudy Abnormal Clear [facility] Comment on above: Order Comment: Speci men Type: URINE SPECIMEN Ordering Facility: [facility] Address: [address] [place] [address] Performed By: #### 2 4356-8 #### [facility] CLIA [id number] [address] [place] [address] [facility] Color (U) Yellow Normal Yellow [facility] Comment on above: Order Comment: Speci men Type: URINE SPECIMEN Ordering Facility: [facility] Address: [address] [place] [address] Performed By: #### 2 4356-8 #### [facility] CLIA [id number] [address] [place] [address] [facility] Epithelial cells LM.HPF (Urine sed) [#/Area] Few Normal [facility] Comment on above: Order Comment: Speci men Type: URINE SPECIMEN Ordering Facility: [facility] Address: [address] [place] [address] Performed By: #### 2 4356-8 #### [facility] CLIA [id number] [address] [place] [address] [facility] [place] Glucose Test strip (U) [Mass/Vol] 2+ Abnormal Negative [facility] Comment on above: Order Comment: Speci men Type: URINE SPECIMEN Ordering Facility: [facility] Address: [address] [place] [address] Performed By: #### 2 4356-8 #### [facility] CLIA [id number] [address] [place] [address] [facility] [place] Hemoglobin Ql (U) 2+ Abnormal Negative [facility] Comment on above: Order Comment: Speci men Type: URINE SPECIMEN Ordering Facility: [facility] Address: [address] [place] [address] Performed By: #### 2 4356-8 #### [facility] CLIA [id number] [address] [place] [address] [facility] Ketones Ql (U) 2+ Abnormal Negative [facility] Comment on above: Order Comment: Speci men Type: URINE SPECIMEN Ordering Facility: [facility] Address: [address] [place] [address] Performed By: #### 2 4356-8 #### [facility] CLIA [id number] [address] [place] [address] [place] Leukocyte esterase Test strip Ql (U) Negative Normal Negative [facility] Comment on above: Order Comment: Speci men Type: URINE SPECIMEN Ordering Facility: [facility] Address: [address] [place] [address] Performed By: #### 2 4356-8 #### [facility] CLIA [id number] [address] [place] [address] [place] Nitrite Ql (U) Negative Normal Negative [facility] Comment on above: Order Comment: Speci men Type: URINE SPECIMEN Ordering Facility: [facility] Address: [address] [place] [address] Performed By: #### 2 4356-8 #### [facility] CLIA [id number] [address] [place] [address] [place] pH (U) 5.5 [pH] Normal 5.0-8.0 [facility] Comment on above: Order Comment: Speci men Type: URINE SPECIMEN Ordering Facility: [facility] Address: [address] [place] [address] Performed By: #### 2 4356-8 #### [facility] CLIA [id number] [address] [place] [address] [place] Protein (U) [Mass/Vol] Negative Normal Negative [facility] Comment on above: Order Comment: Speci men Type: URINE SPECIMEN Ordering Facility: [facility] Address: [address] [place] [address] Performed By: #### 2 4356-8 #### [facility] CLIA [id number] [address] [place] [id number] [facility] [place] RBC LM.HPF (Urine sed) [#/Area] 11-25 /HPF Abnormal 0-3 /HPF [facility] Comment on above: Order Comment: Speci men Type: URINE SPECIMEN Ordering Facility: [facility] Address: [address] [place] [address] Performed By: #### 2 4356-8 #### [facility] CLIA [id number] [address] [place] [address] [place] Specific gravity (U) [Rel density] 1.015 Normal 1.005-1.030 [facility] Comment on above: Order Comment: Speci men Type: URINE SPECIMEN Ordering Facility: [facility] Address: [address] [place] [address] Performed By: #### 2 4356-8 #### [facility] CLIA [id number] [address] [place] [id number] [facility] Urobilinogen Ql (U) 0.2 EU/dL Normal 0.2-1.0 EU/dL [facility] Comment on above: Order Comment: Speci men Type: URINE SPECIMEN Ordering Facility: [facility] Address: [address] [place] [address] Performed By: #### 2 4356-8 #### [facility] CLIA [id number] [address] [place] [address] [place] WBC LM.HPF (Urine sed) [#/Area] 6-10 /HPF Abnormal 0-5 /HPF [facility] Comment on above: Order Comment: Speci men Type: URINE SPECIMEN Ordering Facility: [facility] Address: [address] [place] [address] Performed By: #### 2 4356-8 #### [facility] CLIA [id number] [address] [place], [place] [id number] [facility] [place] Urine cultureOrdered By: Jamie Garcia on 10-03-2024 Bacteria identified Cx Nom (U) ESBL Escherichia coli Abnormal [facility] XR FOOT 3V AP/LAT/OBL LTon 0 12-24-2023 XR FOOT 3V AP/LAT/OBL LT * * *Final Report* * * DATE OF EXAM: Dec 24 [...] of the foot. No acute osseous abnormality. Php Mysql Web Developer: PSCB Transcribe Date/Time: Dec 26 2023 7:43P Dictated by : YAHAIRA LEE MD This examination was interpreted and the report reviewed and electronically signed by: YAHAIRA LEE MD on Dec 26 2023 7:45PM EST [id number] CN Normal [facility] Absolute lymphocyte countOrd ered By: Naima Garcia on 12-21-2023 Lymphocytes Auto (Unsp spec) [#/Vol] 3.20 10*3/uL 0.83-4.51 [facility] Automated lymphocyte count a s percentage of total leukocytesOrdered By: Niama Garcia on 12-21-2023 Lymphocytes/100 WBC Auto (Unsp spec) 36.7 % 19-41 [facility] Basophil percentageOrdered B y: Naima Garcia on 12-21-2023 Basophils/100 WBC (Bld) 0.9 % 0-1 [facility] Bilirubin [Mass/Vol] 0.50 mg/dL 0.20-1.00 [facility] Comment on above: For patients on eltr ombopag therapy, use of Dimension [place]am TBIL is not recommended. Chloride [Moles/Vol] 105 mmol/L 98-107 [facility] Cholesterol [Mass/Vol] 268 mg/dL <200 [facility] Comment on above: <200 mg/dL Desirable 200-240 mg/dL Borderline >240 mg/dL High Risk Eosinophils/100 WBC (Bld) 1.0 % 0-5 [facility] Glucose [Mass/Vol] 128 mg/dL 74-106 [facility] Comment on above: Fasting Glucose resu lt greater than or equal to 126 mg/dL suggests DIABETES MELLITUS per A.D.A. criteria. Hemoglobin (Bld) [Mass/Vol] 15.2 g/dL 12.0-15.0 [facility] Monocytes/100 WBC (Bld) 10.6 % 0-10 [facility] Neutrophils (Bld) [#/Vol] 4.4 10*3/uL 2.0-7.7 [facility] Neutrophils/100 WBC (Bld) 50.6 % 47-70 [facility] Potassium [Moles/Vol] 4.1 mmol/L 3.5-5.1 [facility] Protein [Mass/Vol] 7.5 g/dL 6.4-8.2 [facility] Sodium [Moles/Vol] 137 mmol/L 136-145 [facility] Triglyceride [Mass/Vol] 348 mg/dL <199 [facility] Comment on above: The drugs N-Acetylcy steine and Metamizole may falsely depress this assay.Serum Triglycerides Reference Interval Normal <150 mg/dL Borderline high 150 - 199 mg/dL High 200 - 499 mg/dL Very High > or = 500 mg/dL WBC (Bld) [#/Vol] 8.7 10*3/uL 4.4-11.0 [facility] Determination of erythrocyte mean corpuscular volume (MCV)Ordered By: Naima Garcia on 12-21-2023 MCV (RBC) [Entitic vol] 94.4 fL 81-99 [facility] Erythrocyte distribution wid th ratioOrdered By: Naima Garcia on 12-21-2023 Erythrocyte distribution width (RBC) [Ratio] 13.3 % 11.6-14.6 [facility] Erythrocyte distribution wid th standard deviationOrdered By: Naima aGrcia on 12-21-2023 Erythrocyte distribution width (RBC) [Entitic vol] 46.3 fL 35.1-43.9 [facility] Hematocrit Auto (Bld) [Volum e fraction]Ordered By: Naima Garcia on 12-21-2023 Hematocrit (Bld) [Volume fraction] 47.3 % 37-47 [facility] Immature granulocytes/100 WB C Auto (Bld)Ordered By: Naima Garcia on 12-21-2023 Immature granulocytes/100 WBC (Bld) 0.200 % 0.0-0.9 [facility] Comment on above: IG% - Immature Granu locytes (promyelocytes, myelocytes and metamyelocytes) > 1% indicates that a LEFT SHIFT is Present. Laboratory - Chemistry and C hemistry - challengeOrdered By: Naima Garcia on 12-21-2023 Albumin/Globulin [Mass ratio] 1.0 {ratio} 0.9-2.4 [facility] ALP [Catalytic activity/Vol] 105 U/L 45-117 [facility] ALT [Catalytic activity/Vol] 24 U/L 13-56 [facility] Cholesterol in HDL [Mass/Vol] 34 mg/dL >40 [facility] Comment on above: The drugs N-Acetylcy steine and Metamizole may falsely depress this assay. Reference Range HDL <40 mg/dL Low HDL Cholesterol HDL >or= 60 mg/dL High HDL Cholesterol Cholesterol in LDL [Mass/Vol] 164 mg/dL 0-130 [facility] CO2 [Moles/Vol] 24.0 mmol/L 21.0-32.0 [facility] Globulin (S) [Mass/Vol] 3.7 g/dL 2.2-4.2 [facility] Urea nitrogen/Creatinine [Mass ratio] 20.8 mg/mg 10-20 [facility] Laboratory - Hematology and Cell countsOrdered By: Naima Garcia on 12-21-2023 MCH (RBC) [Entitic mass] 30.3 pg 27.0-32.0 [facility] MCHC (RBC) [Mass/Vol] 32.1 g/dL 32-36 [facility] Nucleated RBC/100 WBC (Bld) [Ratio] 0 % 0-5 [facility] Platelet mean volume (Bld) [Entitic vol] 12.9 fL 6.2-12.0 [facility] Platelets (Bld) [#/Vol] 226 10*3/uL 150-450 [facility] Laboratory - Hematology and Cell countson 12-21-2023 HbA1c (Bld) [Mass fraction] 6.8 % 4.2-6.3 [facility] No Panel InformationOrdered By: Naima Garcia on 12-21-2023 Estimated GFR (MDRD) Amer 106 mL/min >60 [facility] Comment on above: GFR Calc Estimated GFR (MDRD) Non-Af Amer 87 mL/min >60 [facility] Comment on above: Non- GFR Calc VLDL Cholesterol 70 mg/dL 5-40 [facility] RBC Auto (Bld) [#/Vol]Ordere d By: Naima Garcia on 12-21-2023 RBC (Bld) [#/Vol] 5.01 10*6/uL 4.2-5.4 [facility] Serum or plasma calcium sylvia urement (mass/volume)Ordered By: Naima Garcia on 12-21-2023 Calcium [Mass/Vol] 9.2 mg/dL 8.5-10.1 [facility] Serum or plasma creatinine m easurement (mass/volume)Ordered By: Naima Garcia on 12-21-2023 Creatinine [Mass/Vol] 0.72 mg/dL 0.55-1.02 [facility] Comment on above: The validity of the calculated GFR & GFRAA in patients over 70 years has not been determined. Clinical correlation is essential. Serum or plasma thyroid stim ulating hormone (TSH) measurement (units/volume)Ordered By: Naima Garcia on 12-21-2023 TSH Qn 1.15 uIU/mL 0.358-3.74 [facility] Serum or plasma urea nitroge n measurement (mass/volume)Ordered By: Naima Garcia on 12-21-2023 Urea nitrogen [Mass/Vol] 15 mg/dL 7-18 [facility] Thin prep Papanicolaou smear with manual screeningOrdered By: Naima Garcia on 12-21-2023 Thin prep Papanicolaou smear with manual screening 3.8 g/dL 3.2-5.0 [facility] Thin prep Papanicolaou smear with manual screening 14 U/L 15-37 [facility] Thin prep Papanicolaou smear with manual screening 8 5-15 [facility] Absolute lymphocyte countOrd ered By: Naima Garcia on 12-21-2022 Lymphocytes Auto (Unsp spec) [#/Vol] 3.87 10*3/uL 0.83-4.51 [facility] Basophil percentageOrdered B y: Naima Garcia on 12-21-2022 Basophils/100 WBC (Bld) 1.0 % 0-1 [facility] Bilirubin [Mass/Vol] 0.30 mg/dL 0.20-1.00 [facility] Comment on above: For patients on eltr ombopag therapy, use of Dimension [place] TBIL is not recommended. Chloride [Moles/Vol] 100 mmol/L 98-107 [facility] Cholesterol [Mass/Vol] 306 mg/dL <200 [facility] Comment on above: <200 mg/dL Desirable 200-240 mg/dL Borderline >240 mg/dL High Risk Eosinophils/100 WBC (Bld) 1.3 % 0-5 [facility] Glucose [Mass/Vol] 205 mg/dL 74-106 [facility] Comment on above: Glucose result great er than or equal to 200 mg/dLsuggests DIABETES MELLITUS per A.D.A. criteria. Neutrophils (Bld) [#/Vol] 3.8 10*3/uL 2.0-7.7 [facility] Neutrophils/100 WBC (Bld) 43.8 % 47-70 [facility] Potassium [Moles/Vol] 4.1 mmol/L 3.5-5.1 [facility] Protein [Mass/Vol] 7.8 g/dL 6.4-8.2 [facility] Sodium [Moles/Vol] 133 mmol/L 136-145 [facility] Triglyceride [Mass/Vol] 648 mg/dL <199 [facility] Comment on above: The drugs N-Acetylcy steine and Metamizole may falsely depress this assay. TRIGLYCERIDE IS GREATER THAN 400 mg/dL. LDL RESULT IS INVALID AND WILL NOT BE REPORTED.Serum Triglycerides Reference Interval Normal <150 mg/dL Borderline high 150 - 199 mg/dL High 200 - 499 mg/dL Very High > or = 500 mg/dL WBC (Bld) [#/Vol] 8.7 10*3/uL 4.4-11.0 [facility] Blood erythrocytes count (nu mber/volume)Ordered By: Naima Garcia on 12-21-2022 RBC (Bld) [#/Vol] 5.21 10*6/uL 4.2-5.4 [facility] Blood hemoglobin measurement (mass/volume)Ordered By: Naima Garcia on 12-21-2022 Hemoglobin (Bld) [Mass/Vol] 16.0 g/dL 12.0-15.0 [facility] Blood lymphocytes/100 leukoc ytesOrdered By: Naima Garcia on 12-21-2022 Lymphocytes/100 WBC (Bld) 44.4 % 19-41 [facility] Blood monocytes/100 leukocyt esOrdered By: Naima Garcia on 12-21-2022 Monocytes/100 WBC (Bld) 9.2 % 0-10 [facility] Blood platelet mean volumeOr dered By: Naima Garcia on 12-21-2022 Platelet mean volume (Bld) [Entitic vol] 12.7 fL 6.2-12.0 [facility] Determination of erythrocyte mean corpuscular volume (MCV)Ordered By: Naima Garcia on 12-21-2022 MCV (RBC) [Entitic vol] 92.3 fL 81-99 [facility] Hematocrit Auto (Bld) [Volum e fraction]Ordered By: Naima Garcia on 12-21-2022 Hematocrit (Bld) [Volume fraction] 48.1 % 37-47 [facility] Laboratory - Chemistry and C hemistry - challengeOrdered By: Naima Garcia on 12-21-2022 ALP [Catalytic activity/Vol] 116 U/L 45-117 [facility] ALT [Catalytic activity/Vol] 36 U/L 13-56 [facility] CO2 [Moles/Vol] 26.0 mmol/L 21.0-32.0 [facility] Globulin (S) [Mass/Vol] 3.8 g/dL 2.2-4.2 [facility] Urea nitrogen/Creatinine [Mass ratio] 23.4 mg/mg 10-20 [facility] Laboratory - Hematology and Cell countsOrdered By: Naima Garcia on 12-21-2022 Erythrocyte distribution width (RBC) [Entitic vol] 44.4 fL 35.1-43.9 [facility] Erythrocyte distribution width (RBC) [Ratio] 13.1 % 11.6-14.6 [facility] Immature granulocytes/100 WBC (Bld) 0.300 % 0.0-0.9 [facility] Comment on above: IG% - Immature Granu locytes (promyelocytes, myelocytes and metamyelocytes) > 1% indicates that a LEFT SHIFT is Present. MCH (RBC) [Entitic mass] 30.7 pg 27.0-32.0 [facility] Nucleated RBC/100 WBC (Bld) [Ratio] 0 % 0-5 [facility] MCHC Auto (RBC) [Mass/Vol]Or dered By: Naima Garcia on 12-21-2022 MCHC (RBC) [Mass/Vol] 33.3 g/dL 32-36 [facility] No Panel InformationOrdered By: Naima Garcia on 12-21-2022 Estimated GFR (MDRD) Amer 121 mL/min >60 [facility] Comment on above: GFR Calc Estimated GFR (MDRD) Non-Af Amer 100 mL/min >60 [facility] Comment on above: Non- GFR Calc Platelets bldOrdered By: Jamie Garcia on 12-21-2022 Platelets (Bld) [#/Vol] 231 10*3/uL 150-450 [facility] Serum or plasma albumin sylvia urement (mass/volume)Ordered By: Naima Garcia on 12-21-2022 Albumin [Mass/Vol] 4.0 g/dL 3.2-5.0 [facility] Serum or plasma albumin/glob ulin mass ratioOrdered By: Naima Garcia on 12-21-2022 Albumin/Globulin [Mass ratio] 1.1 {ratio} 0.9-2.4 [facility] Serum or plasma calcium sylvia urement (mass/volume)Ordered By: Naima Garcia on 12-21-2022 Calcium [Mass/Vol] 9.3 mg/dL 8.5-10.1 [facility] Serum or plasma cholesterol in HDL measurement (mass/volume)Ordered By: Naima Garcia on 12-21-2022 Cholesterol in HDL [Mass/Vol] 30 mg/dL >40 [facility] Comment on above: The drugs N-Acetylcy steine and Metamizole may falsely depress this assay. Reference Range HDL <40 mg/dL Low HDL Cholesterol HDL >or= 60 mg/dL High HDL Cholesterol Serum or plasma cholesterol in VLDL measurement (mass/volume)Ordered By: Naima Garcia on 12-21-2022 Cholesterol in VLDL [Mass/Vol] TNP [facility] Comment on above: Test not performed Serum or plasma creatinine m easurement (mass/volume)Ordered By: Naima Garcia on 12-21-2022 Creatinine [Mass/Vol] 0.64 mg/dL 0.55-1.02 [facility] Comment on above: The validity of the calculated GFR & GFRAA in patients over 70 years has not been determined. Clinical correlation is essential. Serum or plasma low density lipoprotein (LDL) cholesterol measurement (mass/volume)Ordered By: Naima Garcia on 12-21-2022 Cholesterol in LDL [Mass/Vol] TNP [facility] Comment on above: Test not performed Serum or plasma urea nitroge n measurement (mass/volume)Ordered By: Naima Garcia on 12-21-2022 Urea nitrogen [Mass/Vol] 15 mg/dL 7-18 [facility] Thin prep Papanicolaou smear with manual screeningOrdered By: Naima Garcia on 12-21-2022 Thin prep Papanicolaou smear with manual screening 23 U/L 15-37 [facility] Thin prep Papanicolaou smear with manual screening 7 5-15 [facility] Whole blood hemoglobin A1c/t otal hemoglobin ratio (mass fraction)Ordered By: Naima Garcia on 12-21-2022 HbA1c (Bld) [Mass fraction] 10.8 % 3.8-5.6 [facility] Comment on above: Normal < 5.7 % Predi abetic 5.7 - 6.4 % Diabetic >or= 6.5 % Please note range changes. Absolute lymphocyte counton 12-14-2021 Lymphocytes Auto (Unsp spec) [#/Vol] 3.60 10*3/uL 0.83-4.51 [facility] Work Phone: Basophil percentageon 2021 Basophils/100 WBC (Bld) 0.8 % 0-1 [facility] Work Phone: Bilirubin [Mass/Vol] 0.30 mg/dL 0.20-1.00 [facility] Work Phone: Comment on above: For patients on eltr ombopag therapy, use of Dimension [place]am TBIL is not recommended. Chloride [Moles/Vol] 102 mmol/L 98-107 [facility] Work Phone: Cholesterol [Mass/Vol] 302 mg/dL <200 [facility] Work Phone: Comment on above: <200 mg/dL Desirable 200-240 mg/dL Borderline >240 mg/dL High Risk Eosinophils/100 WBC (Bld) 1.1 % 0-5 [facility] Work Phone: Glucose [Mass/Vol] 244 mg/dL 74-106 [facility] Work Phone: Comment on above: Glucose result great er than or equal to 200 mg/dLsuggests DIABETES MELLITUS per A.D.A. criteria. Neutrophils (Bld) [#/Vol] 4.6 10*3/uL 2.0-7.7 [facility] Work Phone: Neutrophils/100 WBC (Bld) 49.4 % 47-70 [facility] Work Phone: Potassium [Moles/Vol] 4.6 mmol/L 3.5-5.1 [facility] Work Phone: Comment on above: Slight Hemolysis, Re sult may be falsely increased. Protein [Mass/Vol] 7.8 g/dL 6.4-8.2 [facility] Work Phone: Sodium [Moles/Vol] 135 mmol/L 136-145 [facility] Work Phone: Triglyceride [Mass/Vol] 749 mg/dL [facility] Work Phone: Comment on above: The drugs N-Acetylcy steine and Metamizole may falsely depress this assay. TRIGLYCERIDE IS GREATER THAN 400 mg/dL. LDL RESULT IS INVALID AND WILL NOT BE REPORTED.Serum Triglycerides Reference Interval Normal <150 mg/dL Borderline high 150 - 199 mg/dL High 200 - 499 mg/dL Very High > or = 500 mg/dL WBC (Bld) [#/Vol] 9.3 10*3/uL 4.4-11.0 [facility] Work Phone: Blood erythrocytes count (nu mber/volume)on 12-14-2021 RBC (Bld) [#/Vol] 5.19 10*6/uL 4.2-5.4 [facility] Work Phone: Blood hemoglobin measurement (mass/volume)on 12-14-2021 Hemoglobin (Bld) [Mass/Vol] 16.3 g/dL 12.0-15.0 [facility] Work Phone: Blood lymphocytes/100 leukoc yteson 12-14-2021 Lymphocytes/100 WBC (Bld) 38.7 % 19-41 [facility] Work Phone: Blood monocytes/100 leukocyt eson 12-14-2021 Monocytes/100 WBC (Bld) 9.7 % 0-10 [facility] Work Phone: Blood platelet mean volumeon 12-14-2021 Platelet mean volume (Bld) [Entitic vol] 13.1 fL 6.2-12.0 [facility] Work Phone: Determination of erythrocyte mean corpuscular volume (MCV)on 12-14-2021 MCV (RBC) [Entitic vol] 91.5 fL 81-99 [facility] Work Phone: Hematocrit Auto (Bld) [Volum e fraction]on 12-14-2021 Hematocrit (Bld) [Volume fraction] 47.5 % 37-47 [facility] Work Phone: Laboratory - Chemistry and C hemistry - challengeon 12-14-2021 ALP [Catalytic activity/Vol] 80 U/L 45-117 [facility] Work Phone: ALT [Catalytic activity/Vol] 37 U/L 13-56 [facility] Work Phone: CO2 [Moles/Vol] 23.0 mmol/L 21.0-32.0 [facility] Work Phone: Globulin (S) [Mass/Vol] 3.7 g/dL 2.2-4.2 [facility] Work Phone: Urea nitrogen/Creatinine [Mass ratio] 27.1 mg/mg 10-20 [facility] Work Phone: Laboratory - Hematology and Cell countson 12-14-2021 Erythrocyte distribution width (RBC) [Entitic vol] 48.2 fL 35.1-43.9 [facility] Work Phone: Erythrocyte distribution width (RBC) [Ratio] 14.3 % 11.6-14.6 [facility] Work Phone: Immature granulocytes/100 WBC (Bld) 0.300 % 0.0-0.9 [facility] Work Phone: Comment on above: IG% - Immature Granu locytes (promyelocytes, myelocytes and metamyelocytes) > 1% indicates that a LEFT SHIFT is Present. MCH (RBC) [Entitic mass] 31.4 pg 27.0-32.0 [facility] Work Phone: Nucleated RBC/100 WBC (Bld) [Ratio] 0 % 0-5 [facility] Work Phone: HbA1c (Bld) [Mass fraction] 9.2 % [facility] Work Phone: MCHC Auto (RBC) [Mass/Vol]on 12-14-2021 MCHC (RBC) [Mass/Vol] 34.3 g/dL 32-36 [facility] Work Phone: No Panel Informationon 12-14 Digoxin Level 1.21 ng/mL 0.80-2.00 [facility] Work Phone: Estimated GFR (MDRD) Amer 98 mL/min >60 [facility] Work Phone: Comment on above: GFR Calc Estimated GFR (MDRD) Non-Af Amer 81 mL/min >60 [facility] Work Phone: Comment on above: Non- GFR Calc Platelets bldon 12-14-2021 Platelets (Bld) [#/Vol] 245 10*3/uL 150-450 [facility] Work Phone: Serum or plasma albumin sylvia urement (mass/volume)on 12-14-2021 Albumin [Mass/Vol] 4.1 g/dL 3.2-5.0 [facility] Work Phone: Serum or plasma albumin/glob ulin mass ratioon 12-14-2021 Albumin/Globulin [Mass ratio] 1.1 {ratio} 0.9-2.4 [facility] Work Phone: Serum or plasma calcium sylvia urement (mass/volume)on 12-14-2021 Calcium [Mass/Vol] 9.5 mg/dL 8.5-10.1 [facility] Work Phone: Serum or plasma cholesterol in HDL measurement (mass/volume)on 12-14-2021 Cholesterol in HDL [Mass/Vol] 31 mg/dL [facility] Work Phone: Comment on above: The drugs N-Acetylcy steine and Metamizole may falsely depress this assay. Reference Range HDL <40 mg/dL Low HDL Cholesterol HDL >or= 60 mg/dL High HDL Cholesterol Serum or plasma cholesterol in VLDL measurement (mass/volume)on 12-14-2021 Cholesterol in VLDL [Mass/Vol] [facility] Work Phone: Comment on above: Test not performed Serum or plasma creatinine m easurement (mass/volume)on 12-14-2021 Creatinine [Mass/Vol] 0.78 mg/dL 0.55-1.02 [facility] Work Phone: Comment on above: The validity of the calculated GFR & GFRAA in patients over 70 years has not been determined. Clinical correlation is essential. Serum or plasma low density lipoprotein (LDL) cholesterol measurement (mass/volume)on 12-14-2021 Cholesterol in LDL [Mass/Vol] [facility] Work Phone: Comment on above: Test not performed Serum or plasma urea nitroge n measurement (mass/volume)on 12-14-2021 Urea nitrogen [Mass/Vol] 21 mg/dL 7-18 [facility] Work Phone: Thin prep Papanicolaou smear with manual screeningon 12-14-2021 Thin prep Papanicolaou smear with manual screening 17 U/L 15-37 [facility] Work Phone: Comment on above: Slight Hemolysis, Re sult may be falsely increased. Thin prep Papanicolaou smear with manual screening 10 5-15 [facility] Work Phone: CNOVon 09-28-2021 CNOV Office Visit ([facility]WSTR) EAMON HUSTON ([id number]) 1960 F Date Time Provider Department 09/28/21 5:30 PM NARINDER PARSONS [facility] During your visit today, we recorded the following information about you: Temperature Pulse Respiration Blood pressure 99.5 degrees 109/minute 22/minute 110/72 Weight 96.2 kg Narinder Parsons PA-C 09/28/2021 7:15 PM Signed Subjective HPI HPI Eamon Huston is a 61 year old female [...] plan; her will drive her over to [facility] at this time. Report sent over [...] Status:Closed by NARINDER PARSONS on 09/28/21 Normal [facility] No Panel Informationon 09-28 SARS-CoV-2 Antigen (Rapid) SARS-CoV-2 (COVID 19) [facility] Work Phone: Catheterization and angiogra phy procedure details panelon 08-16-2021 Mannie Haskins MD 08/16/2021 8:44 AM [facility] ICD GENERATOR EXCHANGE NOTE Date: 08/16/2021 Patient: Eamon Huston : 1960 Clinical Diagnosis: I50.22 Chronic [...] via: N/A Model number: [id number] Serial Number: [id number] Sensin.1 mV Threshold: 0.5 V @ 0.5 ms Impedance: 440 ohms Lead 2 location: RV [place] Implanted via: N/A Model number: [id number] Serial Number: [id number] Sensin mV Threshold: 0.87 V @ 0.5 ms Impedance: 690 ohms Lead 3 location: LV Branch via coronary sinus Implanted via: N/A Model number: [id number] Serial Number: [id number] Sensing: na mV Threshold: 0.62 V @ 0.5 ms Impedance: 860 ohms Pacing configuration: LV3 to LV4 After washing the pocket with gentamycin containing saline, the leads were attached to the new ICD generator. ICD generator model: [id number] Serial number: [id number] The generator was placed in the Left pre-pectoral fascia. CHRONIC generator removed: [id number] The subcutaneous tissue was closed with Vicryl [...] loss: Minimal Complications: None Comments: tyrx used MANNIE HASKINS MD 08/16/2021 [facility] Work Phone: EP NURSE PROCEDURE REPORTon 08-16-2021 [facility] Basic Metabolic Panelon 06-25 Anion gap [Moles/Vol] 9 mmol/L Normal 3-13 [facility] Comment on above: Performed By: #### H RANDY BMP3 #### [facility] [address] [place] [address] Calcium [Mass/Vol] 9.3 mg/dL Normal 8.4-10.4 [facility] Comment on above: Performed By: #### H RANDY BMP3 #### [facility] [address] [place] [address] CO2 [Moles/Vol] 22 mmol/L Normal 22-30 [facility] Comment on above: Performed By: #### H RANDY, BMP3 #### [facility] [address] [place] [address] Glucose [Mass/Vol] 277 mg/dL High 70-100 [facility] Comment on above: Performed By: #### H RANDY, BMP3 #### [facility] [address] [place], [place] Urea nitrogen [Mass/Vol] 14 mg/dL Normal 9-20 [facility] Comment on above: Performed By: #### H RANDY BMP3 #### [facility] [address] [place], [place] Creatinine [Mass/Vol] 0.52 mg/dL Normal 0.52-1.25 [facility] Comment on above: Performed By: #### H RANDY BMP3 #### [facility] [address] [place], [place] eGFR OTHER > 90.0 Normal >60 [facility] Comment on above: Result Comment: KDIG O [...] tubular creatinine secretion. Performed By: #### H RANDY, BMP3 #### [facility] [address] [place], [place] GFR/1.73 sq M.predicted among blacks MDRD (S/P/Bld) [Vol rate/Area] mL/min/{1.73_m2} Normal >60 [facility] Comment on above: Performed By: #### H RANDY BMP3 #### [facility] [address] [place] [address] Potassium [Moles/Vol] 4.7 mmol/L Normal 3.5-5.1 [facility] Comment on above: Performed By: #### H RANDY BMP3 #### [facility] [address] [place] [address] Chloride [Moles/Vol] 102 mmol/L Normal 98-107 [facility] Comment on above: Performed By: #### Tita PADILLA BMP3 #### [address] [place] [address] Sodium [Moles/Vol] 133 mmol/L Low 135-145 [facility] Comment on above: Performed By: #### Tita PADILLA BMP3 #### [address] [place] [address] Hemogramon 07-22-2021 Erythrocyte distribution width (RBC) [Ratio] 13.9 % Normal 11.5-14.5 [facility] Comment on above: Performed By: #### Tita PADILLA BMP3 #### [address] [place] [address] Hematocrit (Bld) [Volume fraction] 47.1 % High 35.0-47.0 [facility] Comment on above: Performed By: #### Tita PADILLA BMP3 #### [facility] [address] [place] [address] Hemoglobin (Bld) [Mass/Vol] 15.4 g/dL Normal 11.7-16.0 [facility] Comment on above: Performed By: #### Tita PADILLA BMP3 #### [facility] [address] [place] [address] MCH (RBC) [Entitic mass] 30.3 pg Normal 26.0-34.0 [facility] Comment on above: Performed By: #### H RANDY BMP3 #### [facility] [address] [place], [place] MCHC 32.7 % Normal 32.0-36.0 [facility] Comment on above: Performed By: #### H EMOG, BMP3 #### [facility] [address] [place], [place] MCV (RBC) [Entitic vol] 92.6 fL Normal 79.0-98.0 [facility] Comment on above: Performed By: #### H EMOG, BMP3 #### [address] [place], [place] Platelet mean volume (Bld) [Entitic vol] 11.4 fL High 7.4-10.4 [facility] Comment on above: Performed By: #### H EMOG, BMP3 #### [address] [address] [place], [place] Platelets (Bld) [#/Vol] 206 10*3/uL Normal 140-440 [facility] Comment on above: Performed By: #### H EMOErik, BMP3 #### [address] [place], [place] RBC (Bld) [#/Vol] 5.09 10*6/uL Normal 3.80-5.20 [facility] Comment on above: Performed By: #### H EMOG, BMP3 #### [address] [place], [place] WBC (Bld) [#/Vol] 7.0 10*3/uL Normal 3.6-10.7 [facility] Comment on above: Performed By: #### H EMOG, BMP3 #### [address] [address] [place], [place] Hemogramon 05-04-2020 Erythrocyte distribution width (RBC) [Ratio] 13.6 % Normal 11.5-15.9 [facility] Comment on above: Performed By: #### L CBC #### [facility] [address] [place], [place] [address] Hematocrit (Bld) [Volume fraction] 45.0 % Normal 37.0-47.0 [facility] Comment on above: Performed By: #### L CBC #### [facility] [address] [place] [address] Hemoglobin (Bld) [Mass/Vol] 14.7 g/dL Normal 12.0-16.0 [facility] Comment on above: Performed By: #### L CBC #### [facility] [address] [place] [address] MCH (RBC) [Entitic mass] 30.6 pg Normal 27.0-31.0 [facility] Comment on above: Performed By: #### L CBC #### [facility] [address] [place] [address] MCHC (RBC) [Mass/Vol] 32.7 % Normal 32.0-36.0 [facility] Comment on above: Performed By: #### L CBC #### [facility] [address] [place] [address] MCV (RBC) [Entitic vol] 93.6 fL Normal 81.0-99.0 [facility] Comment on above: Performed By: #### L CBC #### [facility] [address] [place] [address] Platelet mean volume (Bld) [Entitic vol] 12.6 fL High 7.1-10.5 [facility] Comment on above: Performed By: #### L CBC #### [facility] [address] [place] [address] Platelets (Bld) [#/Vol] 221 thou/cmm Normal 150-400 [facility] Comment on above: Performed By: #### L CBC #### [facility] [address] [place] [address] RBC (Bld) [#/Vol] 4.81 mil/cmm Normal 4.20-5.40 [facility] Comment on above: Performed By: #### L CBC #### [facility] [address] [place] [address] WBC (Bld) [#/Vol] 7.8 thou/cmm Normal 4.8-10.5 [facility] Comment on above: Performed By: #### L CBC #### [facility] [address] [place] [address] Vital Signs Date Time Vital Sign Value Performing Clinician Facility 04-21-2025 17:56-0400 Body temperature 97.9 [degF] Naima Garcia [facility] Work Phone: [facility] 04-21-2025 17:56-0400 Diastolic blood pressure 80 mm[Hg] Naima Garcia [facility] Work Phone: [facility] 04-21-2025 17:56-0400 Heart rate 103 /min Naima Garcia [facility] Work Phone: [facility] 04-21-2025 17:56-0400 Respiratory rate 25 /min Naima aGrcia [facility] Work Phone: [facility] 04-21-2025 17:56-0400 SaO2% (BldA) [Mass fraction] 96 % Naima Garcia [facility] Work Phone: [facility] 04-21-2025 17:56-0400 Systolic blood pressure 114 mm[Hg] Naima Garcia [facility] Work Phone: [facility] 04-21-2025 16:00-0400 Inhaled oxygen flow rate 2 L/min Naima Garcia [facility] Work Phone: [facility] 04-21-2025 13:45-0400 Body height 167.64 cm Naima Garcia [facility] Work Phone: [facility] 04-21-2025 13:45-0400 Body mass index (BMI) [Ratio] 33.2 kg/m2 Naima Garcia [facility] Work Phone: [facility] 04-21-2025 13:45-0400 Body weight 93.4 kg Naima Garcia [facility] Work Phone: [facility] 04-13-2025 07:26-0400 Body mass index (BMI) [Ratio] 32.4 kg/m2 Naima Garcia [facility] Work Phone: [facility] 04-13-2025 07:26-0400 Body weight 91.17 kg Naima Garcia [facility] Work Phone: [facility] 04-13-2025 07:26-0400 Diastolic blood pressure 78 mm[Hg] Naima Garcia [facility] Work Phone: [facility] 04-13-2025 07:26-0400 Heart rate 79 /min Naimaaaron Garcia [facility] Work Phone: [facility] 04-13-2025 07:26-0400 Respiratory rate 18 /min Naima Garcia [facility] Work Phone: [facility] 04-13-2025 07:26-0400 SaO2% (BldA) [Mass fraction] 97 % Naima Garcia [facility] Work Phone: [facility] 04-13-2025 07:26-0400 Systolic blood pressure 122 mm[Hg] Naima Garcia [facility] Work Phone: [facility] 04-06-2025 17:54-0400 Body height 167.64 cm Naima Garcia [facility] Work Phone: [facility] 04-06-2025 17:54-0400 Body mass index (BMI) [Ratio] 32.3 kg/m2 Naima Garcia [facility] Work Phone: [facility] 04-06-2025 17:54-0400 Body temperature 97.9 [degF] Naima Garcia [facility] Work Phone: [facility] 04-06-2025 17:54-0400 Body weight 90.71 kg Naima Garcia [facility] Work Phone: [facility] 04-06-2025 17:54-0400 Diastolic blood pressure 60 mm[Hg] Naima Garcia [facility] Work Phone: [facility] 04-06-2025 17:54-0400 Heart rate 63 /min Naima Garcia [facility] Work Phone: [facility] 04-06-2025 17:54-0400 Respiratory rate 18 /min Naimaaaron Garcia [facility] Work Phone: [facility] 04-06-2025 17:54-0400 SaO2% (BldA) [Mass fraction] 99 % Naima Garcia [facility] Work Phone: [facility] 04-06-2025 17:54-0400 Systolic blood pressure 115 mm[Hg] Naima Garcia [facility] Work Phone: [facility] 04-03-2025 08:42-0400 Heart rate 88 /min Naima Garcia [facility] Work Phone: [facility] 04-03-2025 08:36-0400 Body temperature 97.6 [degF] Naima Garcia [facility] Work Phone: [facility] 04-03-2025 08:36-0400 Diastolic blood pressure 66 mm[Hg] Naima Garcia [facility] Work Phone: [facility] 04-03-2025 08:36-0400 Respiratory rate 18 /min Naima Garcia [facility] Work Phone: [facility] 04-03-2025 08:36-0400 SaO2% (BldA) [Mass fraction] 96 % Naima Garcia [facility] Work Phone: [facility] 04-03-2025 08:36-0400 Systolic blood pressure 107 mm[Hg] Naima Garcia [facility] Work Phone: [facility] 04-03-2025 05:54-0400 Body mass index (BMI) [Ratio] 33 kg/m2 Naima Garcia [facility] Work Phone: [facility] 04-03-2025 05:54-0400 Body weight 93 kg Naima Garcia [facility] Work Phone: [facility] 04-03-2025 03:00-0400 Inhaled oxygen flow rate 2 L/min Naimaaaron Garcia [facility] Work Phone: [facility] 04-02-2025 22:00-0400 Body temperature 98.1 [degF] Naima Garcia [facility] Work Phone: [facility] 04-02-2025 22:00-0400 Diastolic blood pressure 72 mm[Hg] Naima Garcia [facility] Work Phone: [facility] 04-02-2025 22:00-0400 Heart rate 90 /min Naima Garcia [facility] Work Phone: [facility] 04-02-2025 22:00-0400 Inhaled oxygen flow rate 2 L/min Naimaaaron Garcia [facility] Work Phone: [facility] 04-02-2025 22:00-0400 Respiratory rate 20 /min Naimaaaron Garcia [facility] Work Phone: [facility] 04-02-2025 22:00-0400 Systolic blood pressure 118 mm[Hg] Naima Garcia [facility] Work Phone: [facility] 04-02-2025 14:00-0400 Diastolic blood pressure 71 mm[Hg] Naima Garcia [facility] Work Phone: [facility] 04-02-2025 14:00-0400 Heart rate 101 /min Naimaaaron Garcia [facility] Work Phone: [facility] 04-02-2025 14:00-0400 Respiratory rate 31 /min Naima Garcia [facility] Work Phone: [facility] 04-02-2025 14:00-0400 SaO2% (BldA) [Mass fraction] 94 % Naima Garcia [facility] Work Phone: [facility] 04-02-2025 14:00-0400 Systolic blood pressure 121 mm[Hg] Naimaaaron KellyGarcia [facility] Work Phone: [facility] 04-02-2025 05:20-0400 Body mass index (BMI) [Ratio] 31.7 kg/m2 Naimaaaron KellyGarcia [facility] Work Phone: [facility] 04-02-2025 05:20-0400 Body weight 89.2 kg Naima Jose [facility] Work Phone: [facility] 04-02-2025 03:32-0400 Body height 167.64 cm Naima Jose [facility] Work Phone: [facility] 04-01-2025 23:42-0400 Body temperature 98 [degF] Naimaaaron Garcia [facility] Work Phone: [facility] 04-01-2025 22:30-0400 Inhaled oxygen flow rate 2 L/min Naima Garcia [facility] Work Phone: [facility] 04-01-2025 20:10-0400 Body height 165.1 cm Naima Garcia [facility] Work Phone: [facility] 04-01-2025 20:10-0400 Body mass index (BMI) [Ratio] 35.4 kg/m2 Naima Garcia [facility] Work Phone: [facility] 04-01-2025 20:10-0400 Body weight 96.7 kg Naimaaaron Garcia [facility] Work Phone: [facility] 03-31-2025 17:58-0400 Body mass index (BMI) [Ratio] 33.9 kg/m2 Naima Garcia [facility] Work Phone: [facility] 03-31-2025 17:58-0400 Body temperature 97.5 [degF] Naima Garcia [facility] Work Phone: [facility] 03-31-2025 17:58-0400 Body weight 92.53 kg Naima Garcia [facility] Work Phone: [facility] 03-31-2025 17:58-0400 Diastolic blood pressure 60 mm[Hg] Naima Garcia [facility] Work Phone: [facility] 03-31-2025 17:58-0400 Heart rate 110 /min Naima Garcia [facility] Work Phone: [facility] 03-31-2025 17:58-0400 Respiratory rate 18 /min Naima Garcia [facility] Work Phone: [facility] 03-31-2025 17:58-0400 SaO2% (BldA) [Mass fraction] 95 % Naima Garcia [facility] Work Phone: [facility] 03-31-2025 17:58-0400 Systolic blood pressure 120 mm[Hg] Naima Garcia [facility] Work Phone: [facility] 03-20-2025 17:04-0400 Body height 165.1 cm Naima Garcia [facility] Work Phone: [facility] 03-20-2025 17:04-0400 Body mass index (BMI) [Ratio] 34.1 kg/m2 Naima Garcia [facility] Work Phone: [facility] 03-20-2025 17:04-0400 Body temperature 96.3 [degF] Naima Garcia [facility] Work Phone: [facility] 03-20-2025 17:04-0400 Body weight 92.98 kg Naima Garcia [facility] Work Phone: [facility] 03-20-2025 17:04-0400 Diastolic blood pressure 60 mm[Hg] Naima Garcia [facility] Work Phone: [facility] 03-20-2025 17:04-0400 Heart rate 95 /min Naima Garcia [facility] Work Phone: [facility] 03-20-2025 17:04-0400 Respiratory rate 18 /min Naima Garcia [facility] Work Phone: [facility] 03-20-2025 17:04-0400 SaO2% (BldA) [Mass fraction] 94 % Naima Garcia [facility] Work Phone: [facility] 03-20-2025 17:04-0400 Systolic blood pressure 115 mm[Hg] Naima Garcia [facility] Work Phone: [facility] 12-26-2024 14:59-0400 Body mass index (BMI) [Ratio] 34.1 kg/m2 Naima Garcia [facility] Work Phone: [facility] 12-26-2024 14:59-0400 Body temperature 97.5 [degF] Naima Garcia [facility] Work Phone: [facility] 12-26-2024 14:59-0400 Body weight 92.98 kg Naima Garcia [facility] Work Phone: [facility] 12-26-2024 14:59-0400 Diastolic blood pressure 60 mm[Hg] Naima Garcia [facility] Work Phone: [facility] 12-26-2024 14:59-0400 Heart rate 61 /min Naima Garcia [facility] Work Phone: [facility] 12-26-2024 14:59-0400 Respiratory rate 18 /min Naima Garcia [facility] Work Phone: [facility] 12-26-2024 14:59-0400 SaO2% (BldA) [Mass fraction] 97 % Naima Garcia [facility] Work Phone: [facility] 12-26-2024 14:59-0400 Systolic blood pressure 112 mm[Hg] Naima Garcia [facility] Work Phone: [facility] 12-19-2024 16:51-0400 Body mass index (BMI) [Ratio] 33.9 kg/m2 Naima Garcia [facility] Work Phone: [facility] 12-19-2024 16:51-0400 Body temperature 97.5 [degF] Naima Garcia [facility] Work Phone: [facility] 12-19-2024 16:51-0400 Body weight 92.53 kg Naima Garcia [facility] Work Phone: [facility] 12-19-2024 16:51-0400 Diastolic blood pressure 60 mm[Hg] Naimaaaron Garcia [facility] Work Phone: [facility] 12-19-2024 16:51-0400 Heart rate 83 /min Naimaaaron Garcia [facility] Work Phone: [facility] 12-19-2024 16:51-0400 Respiratory rate 18 /min Naimaaaron Garcia [facility] Work Phone: [facility] 12-19-2024 16:51-0400 SaO2% (BldA) [Mass fraction] 95 % Naimaaaron Garcia [facility] Work Phone: [facility] 12-19-2024 16:51-0400 Systolic blood pressure 100 mm[Hg] Naima Garcia [facility] Work Phone: [facility] 12-12-2024 15:19-0400 Body height 165.1 cm Naima Garcia [facility] Work Phone: [facility] 12-12-2024 15:19-0400 Body mass index (BMI) [Ratio] 33.7 kg/m2 Naima Garcia [facility] Work Phone: [facility] 12-12-2024 15:19-0400 Body temperature 97.5 [degF] Naima Garcia [facility] Work Phone: [facility] 12-12-2024 15:19-0400 Body weight 92.07 kg Naima Garcia [facility] Work Phone: [facility] 12-12-2024 15:19-0400 Diastolic blood pressure 80 mm[Hg] Naima Garcia [facility] Work Phone: [facility] 12-12-2024 15:19-0400 Heart rate 86 /min Naimaaaron Garcia [facility] Work Phone: [facility] 12-12-2024 15:19-0400 Respiratory rate 18 /min Naimaaaron Garcia [facility] Work Phone: [facility] 12-12-2024 15:19-0400 SaO2% (BldA) [Mass fraction] 97 % Naimaaaron Garcia [facility] Work Phone: [facility] 12-12-2024 15:19-0400 Systolic blood pressure 130 mm[Hg] Naimaaaron Garcia [facility] Work Phone: [facility] 12-09-2024 21:53-0400 Body temperature 98.2 [degF] Naimaaaron Garcia [facility] Work Phone: [facility] 12-09-2024 21:53-0400 Diastolic blood pressure 56 mm[Hg] Naimaaaron Garcia [facility] Work Phone: [facility] 12-09-2024 21:53-0400 Heart rate 79 /min Naimaaaron Garcia [facility] Work Phone: [facility] 12-09-2024 21:53-0400 Respiratory rate 18 /min Naimaaaron Garcia [facility] Work Phone: [facility] 12-09-2024 21:53-0400 SaO2% (BldA) [Mass fraction] 96 % Naima Garcia [facility] Work Phone: [facility] 12-09-2024 21:53-0400 Systolic blood pressure 141 mm[Hg] Naimaaaron Garcia [facility] Work Phone: [facility] 12-09-2024 18:28-0400 Body height 165.1 cm Naima Garcia [facility] Work Phone: [facility] 12-09-2024 18:28-0400 Body mass index (BMI) [Ratio] 36.6 kg/m2 Naima Garcia [facility] Work Phone: [facility] 12-09-2024 18:28-0400 Body weight 99.79 kg Naima Garcia [facility] Work Phone: [facility] 12-09-2024 17:39-0400 Body mass index (BMI) [Ratio] 35.2 kg/m2 Naimaaaron Garcia [facility] Work Phone: [facility] 12-09-2024 17:39-0400 Body temperature 97.9 [degF] Naima Garcia [facility] Work Phone: [facility] 12-09-2024 17:39-0400 Body weight 92.98 kg Naima Garcia [facility] Work Phone: [facility] 12-09-2024 17:39-0400 Diastolic blood pressure 70 mm[Hg] Naima Garcia [facility] Work Phone: [facility] 12-09-2024 17:39-0400 Heart rate 90 /min Naima Garcia [facility] Work Phone: [facility] 12-09-2024 17:39-0400 Respiratory rate 18 /min Naima Garcia [facility] Work Phone: [facility] 12-09-2024 17:39-0400 SaO2% (BldA) [Mass fraction] 97 % Naima Garcia [facility] Work Phone: [facility] 12-09-2024 17:39-0400 Systolic blood pressure 120 mm[Hg] Naima Garcia [facility] Work Phone: [facility] 10-03-2024 17:19-0500 Diastolic blood pressure 60 mm[Hg] Naima Garcia [facility] Work Phone: [facility] 10-03-2024 17:19-0500 Heart rate 96 /min Naima Garcia [facility] Work Phone: [facility] 10-03-2024 17:19-0500 Respiratory rate 22 /min Naimaaaron Garcia [facility] Work Phone: [facility] 10-03-2024 17:19-0500 SaO2% (BldA) [Mass fraction] 97 % Naimaaaron KellyGarcia [facility] Work Phone: [facility] 10-03-2024 17:19-0500 Systolic blood pressure 70 mm[Hg] Naimaaaron KellyGarcia [facility] Work Phone: [facility] 10-03-2024 16:49-0500 Body mass index (BMI) [Ratio] 35.2 kg/m2 Naimaaaron KellyGarcia [facility] Work Phone: [facility] 10-03-2024 16:49-0500 Body temperature 97.3 [degF] Naimaaaron KellyGarcia [facility] Work Phone: [facility] 10-03-2024 16:49-0500 Body weight 92.98 kg Naimaaaron Garcia [facility] Work Phone: [facility] 12-21-2023 15:04-0400 Body height 162.56 cm [facility] 12-21-2023 15:04-0400 Body mass index (BMI) [Ratio] 34 kg/m2 [facility] 12-21-2023 15:04-0400 Body temperature 97.2 [degF] [facility] 12-21-2023 15:04-0400 Body weight 89.81 kg [facility] 12-21-2023 15:04-0400 Diastolic blood pressure 60 mm[Hg] [facility] 12-21-2023 15:04-0400 Heart rate 72 /min [facility] 12-21-2023 15:04-0400 Respiratory rate 18 /min [facility] 12-21-2023 15:04-0400 SaO2% (BldA) [Mass fraction] 96 % [facility] 12-21-2023 15:04-0400 Systolic blood pressure 118 mm[Hg] [facility] 12-21-2022 19:18-0400 Body height 162.56 cm [facility] 12-21-2022 19:18-0400 Body mass index (BMI) [Ratio] 37 kg/m2 [facility] 12-21-2022 19:18-0400 Body temperature 97.3 [degF] [facility] 12-21-2022 19:18-0400 Body weight 97.97 kg [facility] 12-21-2022 19:18-0400 Diastolic blood pressure 80 mm[Hg] [facility] 12-21-2022 19:18-0400 Heart rate 84 /min [facility] 12-21-2022 19:18-0400 Respiratory rate 18 /min [facility] 12-21-2022 19:18-0400 SaO2% (BldA) [Mass fraction] 97 % [facility] 12-21-2022 19:18-0400 Systolic blood pressure 142 mm[Hg] [facility] 12-14-2021 18:20-0400 Body height 162.56 cm [facility] Work Phone: 12-14-2021 18:20-0400 Body mass index (BMI) [Ratio] 36.6 kg/m2 [facility] Work Phone: 12-14-2021 18:20-0400 Body temperature 97.3 [degF] [facility] Work Phone: 12-14-2021 18:20-0400 Body weight 96.61 kg [facility] Work Phone: 12-14-2021 18:20-0400 Diastolic blood pressure 70 mm[Hg] [facility] Work Phone: 12-14-2021 18:20-0400 Heart rate 92 /min [facility] Work Phone: 12-14-2021 18:20-0400 Respiratory rate 18 /min [facility] Work Phone: 12-14-2021 18:20-0400 SaO2% (BldA) [Mass fraction] 95 % [facility] Work Phone: 12-14-2021 18:20-0400 Systolic blood pressure 132 mm[Hg] [facility] Work Phone: 09-28-2021 20:26-0500 Heart rate 103 /min [facility] Work Phone: 09-28-2021 20:26-0500 Respiratory rate 20 /min [facility] Work Phone: 09-28-2021 20:26-0500 SaO2% (BldA) [Mass fraction] 93 % [facility] Work Phone: 09-28-2021 17:42-0500 Body mass index (BMI) [Ratio] 34.4 kg/m2 [facility] Work Phone: 09-28-2021 17:42-0500 Body temperature 97.7 [degF] [facility] Work Phone: 09-28-2021 17:42-0500 Body weight 91.17 kg [facility] Work Phone: 09-28-2021 17:42-0500 Diastolic blood pressure 86 mm[Hg] [facility] Work Phone: 09-28-2021 17:42-0500 Systolic blood pressure 144 mm[Hg] [facility] Work Phone: 08-16-2021 09:30-0500 Diastolic blood pressure 67 mm[Hg] Mannie Haskins MD Work Phone: [facility] 08-16-2021 09:30-0500 Heart rate 79 /min Mannie Haskins MD Work Phone: [facility] 08-16-2021 09:30-0500 Respiratory rate 27 /min Mannie Haskins MD Work Phone: [facility] 08-16-2021 09:30-0500 SaO2% (BldA) [Mass fraction] 90 % Mannie Haskins MD Work Phone: [facility] 08-16-2021 09:30-0500 Systolic blood pressure 116 mm[Hg] Mannie Haskins MD Work Phone: [facility] 08-16-2021 08:45-0500 Body temperature 97.39 [degF] Mannie Haskins MD Work Phone: [facility] 08-16-2021 06:48-0500 Body height 165.1 cm Mannie Haskins MD Work Phone: [facility] 08-16-2021 06:48-0500 Body mass index (BMI) [Ratio] 36.61 kg/m2 Mannie Haskins MD Work Phone: [facility] 08-16-2021 06:48-0500 Body weight 99.79 kg Mannie Haskins MD Work Phone: [facility] Encounters Encounter Date Encounter Type Care Provider Facility Start: 04-29-2025 ambulatory Naima Garcia EXERCISE RIDER Faci lity:[facility] Start: 04-21-2025 Evaluation and management of inpatient Dr. Franko Cueto DO -Progressive Care Unit Work Phone: Start: 04-13-2025 End: 04-13-2025 Patient encounter procedure Tamanna Guerra EXERCISE RIDER-C -[facility] Work Phone: Start: 04-13-2025 End: 04-13-2025 ambulatory Naima Garcia [facility]-C Work Phone: -[facility] Start: 04-06-2025 Non-patient / Non-visit Dr. Kalen solis MD -[facility] Start: 04-06-2025 ambulatory Naima pedroza [facility]-C Work Phone: -[facility] Start: 04-03-2025 Non-patient / Non-visit Dr. Amaris Gomez MD -[facility] Work Phone: Start: 04-02-2025 End: 04-02-2025 ambulatory Naima Garcia [facility]ER-C Work Phone: -[facility] Start: 04-02-2025 End: 04-02-2025 Patient encounter procedure Raven Concepcion -[facility] Work Phone: Start: 04-02-2025 Non-patient / Non-visit Dr. Amaris Gomez MD -[facility] Work Phone: Start: 04-02-2025 ambulatory Naima Garcia EXERCISE RIDER Faci lity:[facility] Start: 04-02-2025 End: 04-03-2025 Evaluation and management of inpatient Dr. Franko Cueto DO -Progressive Care Unit Work Phone: Start: 03-31-2025 End: 03-31-2025 ambulatory Naima Garcia [facility]-C Work Phone: -Laboratory Specimen Start: 03-31-2025 End: 03-31-2025 Patient encounter procedure Naima Garcia [facility]-C -Laboratory Specimen Work Phone: Start: 03-31-2025 End: 03-31-2025 ambulatory Naima Garcia EXERCISE RIDER Facility:[facility] Start: 03-20-2025 End: 03-20-2025 ambulatory Naima Garcia [facility]C Work Phone: -Laboratory Specimen Start: 03-20-2025 End: 03-20-2025 Patient encounter procedure Naima Garcia [facility]ERCISE R[facility]ER-C -Laboratory Specimen Work Phone: Start: 03-20-2025 End: 03-20-2025 ambulatory Naima Garcia EXERCISE RIDER Facility:[facility] Start: 03-10-2025 End: 03-10-2025 ambulatory NAIMA GARCIA [facility] Start: 12-12-2024 End: 12-12-2024 ambulatory Naima Garcia [facility]ERCISE RIDER-C Work Phone: [facility] Work Phone: Start: 12-12-2024 End: 12-12-2024 Patient encounter procedure Naima Garcia [facility]ERCISE RIDER-C -Laboratory, Specimen Work Phone: Start: 12-12-2024 End: 12-12-2024 ambulatory Naima Jose EXERCISE RIDER Facility:[facility] Start: 12-09-2024 End: 12-09-2024 Emergency department patient visit Naima Garcia [facility]ER-C Work Phone: -Emergency Department Work Phone: Start: 12-04-2024 End: 12-04-2024 ambulatory NAIMA GARCIA [facility] Start: 10-03-2024 End: 10-03-2024 Patient encounter procedure Naima Garcia [facility]ERCISE R[facility]ER-C -Laboratory, Specimen Work Phone: Start: 10-03-2024 Emergency department patient visit NAIMA L JOSE Facility:[facility] Start: 10-03-2024 End: 10-03-2024 ambulatory Naimaaaron KellyGarcia EXERCISE RIDER Facility:[facility] Start: 09-04-2024 End: 09-04-2024 ambulatory NAIMA GARCIA [facility] Start: 06-05-2024 End: 06-05-2024 ambulatory NAIMA GARCIA [facility] Start: 12-24-2023 ambulatory NAIMA GARCIA Facil ity:[facility] Start: 12-24-2023 End: 12-24-2023 Subsequent hospital visit by physician [facility] Comment on above: Left foot XR Start: 12-21-2023 End: 12-21-2023 ambulatory [facility] Work Phone: Start: 12-21-2023 End: 12-21-2023 Patient encounter procedure [facility]-Laboratory, Specimen Work Phone: Start: 12-22-2022 End: 12-22-2022 Subsequent hospital visit by physician [facility] Comment on above: Pain in right hip [M 25.551] Start: 12-21-2022 End: 12-21-2022 ambulatory [facility] Work Phone: Start: 12-21-2022 End: 12-21-2022 Patient encounter procedure [facility]-Laboratory, Specimen Start: 12-14-2021 End: 12-14-2021 Patient encounter procedure [facility]-Laboratory, Specimen Start: 09-28-2021 End: 09-28-2021 Emergency department patient visit [facility]-Emergency Department Start: 08-16-2021 End: 08-16-2021 Subsequent hospital visit by physician Mannie Haskins MD Work Phone: [facility] [employer] Comment on above: Arrived Procedures Date Procedure Procedure Detail Performing Clinician Start: 04-21-2025 CT angiography of ch est with contrast Naima Garcia [facility]C Work Phone: Start: 04-21-2025 Plain chest X-ray Naimaaaron Garcia [facility]C Work Phone: Start: 04-21-2025 D-dimer assay, quantitative Naima Garcia [facility]C Work Phone: Comment on above: D-Dimer ELEVATED (>0 .49): Additional studies and clinicalassessments are indicated to conclude diagnosis of:Deep Vein Thrombosis (DVT) or Pulmonary Embolism (PE)CRITICAL VALUE CALLED TO [place] [facility]WRIGHT (ER)04/21/25 [facility]9 Dwayne Arias.RESULTS READ BACK BY SAME. Start: 04-21-2025 Estimated creatinine clearance Naimaaaron Garcia [facility] Work Phone: Start: 04-03-2025 Estimated creatinine clearance Naima Garcia [facility] Work Phone: Start: 04-03-2025 Serum inorganic phos phate measurement Naima Garcia [facility] Work Phone: Start: 04-02-2025 Plain chest X-ray Naima Jose [facility] Work Phone: Start: 04-02-2025 Coagulation time, activated Naima Garcia [facility] Work Phone: Start: 04-02-2025 Estimated creatinine clearance Naima Garcia [facility] Work Phone: Start: 04-02-2025 Vitamin D, 25-hydrox y measurement Naima Garcia [facility] Work Phone: Comment on above: Vitamin D StatusDefi ciency: <20 ng/mL (50nmol/L)Insufficiency: 20-30 ng/mL (50-75 nmol/L)Sufficiency: 30-100 ng/mL (75-250 nmol/L)Toxicity: >100 ng/mL (>250 nmol/L) Start: 04-01-2025 Oxygen measurement Naima Garcia [facility]C Work Phone: Start: 04-01-2025 Plain chest X-ray Naima Garcia [facility] Work Phone: Start: 04-01-2025 D-dimer assay, quantitative Naima Garcia [facility] Work Phone: Comment on above: NORMAL D-Dimer level (<0.50) indicates no DVT or PE. Start: 04-01-2025 Estimated creatinine clearance Naima Garcia [facility]C Work Phone: Start: 12-12-2024 Anaerobic microbial culture Naima Garcia [facility] Work Phone: Start: 12-12-2024 Gram stain microscopy D denis Garcia [facility] Work Phone: Start: 12-12-2024 End: 12-12-2024 Microbial culture, routine Naima Churchill on [facility] Work Phone: Start: 12-09-2024 Estimated creatinine clearance Naima Garcia [facility] Work Phone: Start: 10-03-2024 Urine culture Naima sánchezon [facility]C Work Phone: Start: 09-28-2021 SARS-CoV-2 Antigen (Rapid) Start: 08-16-2021 Ecg routine ecg w/le ast 12 lds w/i&r Shantelle Flores GEMOLOGIST [employer] Work Phone: Start: 08-16-2021 EP NURSE PROCEDURE REPORT 3m Scanning Start: 08-16-2021 Cardiac catheterization Shantelle Flores GEMOLOGIST [employer] Work Phone: Start: 10-03-2019 Lipid 1996 panel - S morteza or [facility] Start: 04-09-2018 Mammography [facility] Start: 12-29-2009 Microscopic observat ion [Identifier] in Cervix by Cyto stain Mannie Haskins MD Work Phone: Plan of Treatment Date Care Activity Detail Author Start: 04-21-2025 Verification routine [facility] Start: 04-21-2025 Admission procedure [facility] Start: 04-21-2025 Hospital admission, emergency, from emergency room, medical nature [facility] Start: 04-21-2025 [facility] Start: 04-03-2025 Patient discharge [facility] Start: 04-03-2025 [facility] Start: 04-02-2025 [facility] Start: 04-02-2025 Verification routine [facility] Start: 04-02-2025 Ambulation without limitation [facility] Start: 04-02-2025 Assessment of risk of venous thromboembolism [facility] Start: 04-02-2025 Care regimes management [facility] Start: 04-02-2025 Insertion of catheter into peripheral vein [facility] Start: 04-02-2025 Measuring intake and output [facility] Start: 04-02-2025 Notification of physician [facility] Start: 04-02-2025 Oxygen therapy [facility] Start: 04-02-2025 Providing care according to standard [facility] Start: 04-02-2025 Referral to income tax administrator [facility] Start: 04-02-2025 Referral to service [facility] Start: 04-02-2025 End: 04-02-2025 [facility] Start: 04-02-2025 Following clinical pathway protocol [facility] Start: 04-02-2025 Verification routine [facility] Start: 04-02-2025 Admission procedure [facility] Start: 04-02-2025 Cardiac rehabilitation - phase 1 [facility] Start: 04-02-2025 Cardiac rehabilitation - phase 2 [facility] Start: 04-01-2025 Hospital admission, emergency, from emergency room, medical nature [facility] Start: 04-01-2025 [facility] Start: 03-31-2025 Measurement of C-reactive protein using high sensitivity technique [facility] Start: 12-09-2024 [facility] Start: 12-09-2024 Incision & drainage abscess simple/single I&D ABSCESS SIMPLE/SINGLE [facility] Start: 10-03-2024 Lipid panel Lipid Screening [facility] Start: 07-22-2024 Diabetes Screening Diabetes Screening [facility] Start: 05-25-2024 Influenza vaccination Influenza Vaccine (Season Ended) [facility] Start: 09-24-2023 Depression Assessment Depression Assessment [facility] Start: 05-25-2023 Covid-19 Vaccine ( season) Covid-19 Vaccine ( season) [facility] Start: 09-24-2022 DEPRESSION ASSESSMENT DEPRESSION ASSESSMENT [facility] Start: 08-07-2022 LIPID SCREEN LIPID SCREEN [facility] Start: 07-22-2022 Creatinine measurement Creatinine monitoring [facility] Start: 07-22-2022 Potassium monitoring Potassium monitoring [facility] Start: 05-25-2022 Influenza vaccination INFLUENZA (#1) [facility] Start: 2022 RSV Vaccine (1 - 1-dose 60+ series) RSV Vaccine (1 - 1-dose 60+ series) [facility] Start: 08-30-2021 End: 08-30-2021 Nursing evaluation of patient and report 08/30/2021 Nurse Only Cardiology Madelaine Sam, [facility] Start: 05-25-2021 Influenza vaccination Flu vaccine (#1) [facility] Start: 03-25-2021 DIABETES SCREEN DIABETES SCREEN [facility] Start: 10-03-2020 Lipid panel Lipid screen [facility] Start: 07-22-2019 Diabetic foot examination Diabetic foot exam [facility] Start: 04-09-2019 Mammography MAMMOGRAM [facility] Start: 04-09-2019 Screening for malignant neoplasm [...] of 2) Shingles Vaccine (1 of 2) [facility] Start: 2012 SHINGRIX VACCINE (1 of 2) SHINGRIX VACCINE (1 of 2) [facility] Start: 2007 COLOGUARD (FIT-DNA) COLOGUARD (FIT-DNA) [facility] Start: 2007 Colonoscopy COLONOSCOPY [facility] Start: 2007 COLORECTAL CANCER SCREENING COLORECTAL CANCER SCREENING [facility] Start: [address] COLONOGRAPHY [facility] Start: 2007 FECAL OCCULT BLOOD FECAL OCCULT BLOOD [facility] Start: 2007 Screening for malignant neoplasm of colon [facility] Start: 2007 SIGMOIDOSCOPY SIGMOIDOSCOPY [facility] Start: 1992 HPV TESTING HPV TESTING [facility] Start: 1992 Screening for malignant neoplasm of cervix [facility] Start: 1983 PAP TESTING PAP TESTING [facility] Start: 1983 Screening for malignant neoplasm of cervix Pap Testing [facility] Start: 1981 DTaP/Tdap/Td vaccine (1 - Tdap) DTaP/Tdap/Td vaccine (1 - Tdap) [facility] Start: 1981 Hepatitis B vaccine (1 of 3 - Risk 3-dose series) Hepatitis B vaccine (1 of 3 - Risk 3-dose series) [facility] Start: 1981 Urine microalbumin profile [facility] Start: 1980 HEPATITIS C SCREENING HEPATITIS C SCREENING [facility] Start: 1980 Hepatitis C screening Hepatitis C Screening [facility] Start: 1980 HIV SCREENING HIV SCREENING [facility] Start: 1980 HIV screening HIV Screening [facility] Start: 1977 HIV screening HIV screen [facility] Start: 1974 COVID-19 Vaccine (1) COVID-19 Vaccine (1) [facility] Start: 1968 Pneumococcal 0-64 years Vaccine (1 of 2 - PPSV23) Pneumococcal 0-64 years Vaccine (1 of 2 - PPSV23) [facility] Start: 1962 COVID-19 VACCINE (#1) COVID-19 VACCINE (#1) [facility] Start: 1962 Hepatitis C screening Hepatitis C screen [facility] Alanine aminotransfe rase [Enzymatic activity/volume] in Serum or Plasma [facility] Alanine aminotransfe rase [Enzymatic activity/volume] in Serum or Plasma [facility] Alanine aminotransfe rase [Enzymatic activity/volume] in Serum or Plasma [facility] Alanine aminotransfe rase [Enzymatic activity/volume] in Serum or Plasma [facility] Albumin [Mass/volume ] in Serum or Plasma [facility] Albumin [Mass/volume ] in Serum or Plasma [facility] Albumin [Mass/volume ] in Serum or Plasma [facility] Albumin [Mass/volume ] in Serum or Plasma [facility] Alkaline phosphatase [Enzymatic activity/volume] in Serum or Plasma [facility] Alkaline phosphatase [Enzymatic activity/volume] in Serum or Plasma [facility] Alkaline phosphatase [Enzymatic activity/volume] in Serum or Plasma [facility] Alkaline phosphatase [Enzymatic activity/volume] in Serum or Plasma [facility] Anion gap in Serum o r Plasma [facility] Anion gap in Serum o r Plasma [facility] Anion gap in Serum o r Plasma [facility] Anion gap in Serum o r Plasma [facility] Bilirubin, total measurement [facility] Bilirubin, total measurement [facility] Bilirubin, total measurement [facility] Bilirubin, total measurement [facility] BUN/Creatinine ratio [facility] BUN/Creatinine ratio [facility] BUN/Creatinine ratio [facility] BUN/Creatinine ratio [facility] Calcium [Mass/volume ] in Serum or Plasma [facility] Calcium [Mass/volume ] in Serum or Plasma [facility] Calcium [Mass/volume ] in Serum or Plasma [facility] Calcium [Mass/volume ] in Serum or Plasma [facility] Carbon dioxide, tota l [Moles/volume] in Central venous blood [facility] Carbon dioxide, tota l [Moles/volume] in Central venous blood [facility] Carbon dioxide, tota l [Moles/volume] in Central venous blood [facility] Carbon dioxide, tota l [Moles/volume] in Central venous blood [facility] Cholesterol [Mass/vo lume] in Serum or Plasma [facility] Cholesterol in HDL [Mass/volume] in Serum or Plasma [facility] Creatinine [Mass/vol ume] in Serum or Plasma [facility] Creatinine [Mass/vol ume] in Serum or Plasma [facility] Creatinine [Mass/vol ume] in Serum or Plasma [facility] Creatinine [Mass/vol ume] in Serum or Plasma [facility] EKG 12 Lead EKG 12 Lead ECG Routine 08/16/2021 8:55 AM EST [facility] Work Phone: End: 08-16-2021 ELECTROPHYSIOLOGY DEVICE ELECTROPHYSIOLOGY DEVICE Echocardiography Routine One Time for 1 Occurrences starting 08/16/2021 until 08/16/2021 [employer] Work Phone: Comment on above: One Time for 1 Occurrences starting 07/26 until 08/16/2021 Erythrocyte mean corpuscular volume determination [facility] Erythrocyte mean corpuscular volume determination [facility] Erythrocyte mean corpuscular volume determination [facility] Erythrocyte mean corpuscular volume determination [facility] Glucose [Mass/volume ] in Serum or Plasma [facility] Glucose [Mass/volume ] in Serum or Plasma [facility] Glucose [Mass/volume ] in Serum or Plasma [facility] Glucose [Mass/volume ] in Serum or Plasma [facility] Hematocrit [Volume Fraction] of Blood [facility] Hematocrit [Volume Fraction] of Blood [facility] Hematocrit [Volume Fraction] of Blood [facility] Hematocrit [Volume Fraction] of Blood [facility] Hemoglobin [Mass/vol ume] in Blood [facility] Hemoglobin [Mass/vol ume] in Blood [facility] Hemoglobin [Mass/vol ume] in Blood [facility] Hemoglobin [Mass/vol ume] in Blood [facility] Hepatic function panel [facility] Leukocytes [#/volume ] in Blood [facility] Leukocytes [#/volume ] in Blood [facility] Leukocytes [#/volume ] in Blood [facility] Leukocytes [#/volume ] in Blood [facility] Lipid 1996 panel - S morteza or Plasma [facility] Low density lipoprot ein cholesterol measurement [facility] Mean corpuscular hemoglobin concentration determination [facility] Mean corpuscular hemoglobin concentration determination [facility] Mean corpuscular hemoglobin concentration determination [facility] Mean corpuscular hemoglobin concentration determination [facility] Mean corpuscular hemoglobin determination [facility] Mean corpuscular hemoglobin determination [facility] Mean corpuscular hemoglobin determination [facility] Mean corpuscular hemoglobin determination [facility] Measurement of renal function [facility] Measurement of renal function [facility] Measurement of renal function [facility] Measurement of renal function [facility] Neutrophil count [facility] Neutrophil count [facility] Neutrophil count [facility] Neutrophil count [facility] Neutrophil percent differential count [facility] Neutrophil percent differential count [facility] Neutrophil percent differential count [facility] Neutrophil percent differential count [facility] Oxygen therapy [[facility] Data Set] Initiate Oxygen Therapy Protocol Respiratory Care Routine Daily until discontinued starting 08/16/2021 [employer] Work Phone: Comment on above: Daily until discontinued starting 2020 Patient Education [facility] Work Phone: Patient referral [facility] Work Phone: Platelets [#/volume] in Blood [facility] Platelets [#/volume] in Blood [facility] Platelets [#/volume] in Blood [facility] Platelets [#/volume] in Blood [facility] Potassium measurement [facility] Potassium measurement [facility] Potassium measurement [facility] Potassium measurement [facility] Red blood cell count [facility] Red blood cell count [facility] Red blood cell count [facility] Red blood cell count [facility] Red cell distributio n width determination [facility] Red cell distributio n width determination [facility] Red cell distributio n width determination [facility] Red cell distributio n width determination [facility] Serum chloride measurement [facility] Serum chloride measurement [facility] Serum chloride measurement [facility] Serum chloride measurement [facility] Sodium measurement [facility] Sodium measurement [facility] Sodium measurement [facility] Sodium measurement [facility] Total cholesterol:HD L ratio measurement [facility] Total protein measurement [facility] Total protein measurement [facility] Total protein measurement [facility] Total protein measurement [facility] Triglycerides measurement [facility] Troponin T.cardiac [Mass/volume] in Serum or Plasma by High sensitivity method [facility] Troponin T.cardiac [Mass/volume] in Serum or Plasma by High sensitivity method [facility] Urea nitrogen [Mass/volume] in Serum or Plasma [facility] Urea nitrogen [Mass/volume] in Serum or Plasma [facility] Urea nitrogen [Mass/volume] in Serum or Plasma [facility] Urea nitrogen [Mass/volume] in Serum or Plasma [facility] US Heart limited [facility] VLDL cholesterol measurement [facility] Immunizations Immunization Date Immunization Notes Care Provider Fa [facility] 08-07-2013 influenza virus vaccine, unspecified formulation Mannie Haskins MD Work Phone: [facility] Work Phone: Payers Date Payer Category Payer Self-pay [id number] 2022 Unknown MMO MMO [employer] PPO [id number] 2022-Present [phone] [address] [place] [address] PPO [id number] 2020 Unknown [id number] Unknown [id number] Unknown [id number] Unknown [id number] Unknown [id number] Unknown [id number] Unknown [id number] Unknown [id number] Unknown [id number] Unknown [id number] Unknown [id number] Unknown [id number] Unknown [id number] Unknown [id number] Unknown [id number] Social History Date Type Detail Facility Start: 06-16-2015 End: 04-21-2025 Tobacco smoking status NHIS Ex-smoker [employer] Work Phone: End: 09-24-2010 History of tobacco use Current smoker [employer] Work Phone: End: 09-24-2010 History of tobacco use Cigarette Smoker [employer] Work Phone: Start: 06-16-2015 End: 08-29-2020 Cigarettes smoked current (pack per day) - Reported 1.5 [employer] Work Phone: Start: 06-16-2015 End: 09-28-2021 Tobacco use and exposure Smokeless tobacco non-user [employer] Work Phone: Start: 07-22-2021 Alcohol intake Current non-dr sports agent of alcohol (finding) [employer] Work Phone: Start: 1960 Sex Assigned At Not on file [facility] Work Phone: Exposure to SARS-CoV -2 (event) Not sure [id number] Start: 09-28-2021 Tobacco smoking stat us MDIS Unknown if ever smoked [facility] Start: 03-20-2020 Spouse/ Signif icant Other [facility] Start: 1960 Sex Assigned At Female [facility] Start: 09-28-2021 End: 04-02-2025 Tobacco smoking status NHIS Never smoked tobacco [facility] Start: 08-29-2020 End: 09-28-2021 Tobacco use panel [facility] National Score (1-10 0), lower number is lower risk Not on file [facility] Start: 12-09-2024 End: 12-16-2024 Sex Female (finding) [facility] Medical Equipment Procedure Code Equipment Code Equipment Origin al Text Equipment Identifier Dates 1 each by In Vit ro route 2 times daily As needed. [id number] Start: 07-22-2018 Blood Sugar Diagnostic (Onetouch Ultra Test) strip Start: 12-21-2023 Lancets (E-Z Jec t Lancets) 30 gauge misc Start: 12-21-2023 Blood Sugar Diagnostic (Onetouch Ultra Test) strip Start: 12-21-2023 Lancets (E-Z Jec t Lancets) 30 gauge misc Start: 12-21-2023 Blood Sugar Diagnostic (Onetouch Ultra Test) strip Start: 12-21-2023 Lancets (E-Z Jec t Lancets) 30 gauge misc Start: 12-21-2023 Blood Sugar Diagnostic (Onetouch Ultra Test) strip Start: 12-21-2023 Lancets (E-Z Jec t Lancets) 30 gauge misc Start: 12-21-2023 Blood Sugar Diagnostic (Onetouch Ultra Test) strip Start: 12-21-2023 Lancets (E-Z Jec t Lancets) 30 gauge misc Start: 12-21-2023 Drug-eluting coronary artery stent, gge-dwadrrvrroqfa-vb lymer-coated ()[id number] FDA Start: 04-02-2025 Blood Sugar Diagnostic (Onetouch Ultra Test) strip Start: 12-21-2023 Lancets (E-Z Jec t Lancets) 30 gauge misc Start: 12-21-2023 Blood Sugar Diagnostic (Onetouch Ultra Test) strip Start: 12-21-2023 Lancets (E-Z Jec t Lancets) 30 gauge misc Start: 12-21-2023 Blood Sugar Diagnostic (Onetouch Ultra Test) strip Start: 12-21-2023 Lancets (E-Z Jec t Lancets) 30 gauge misc Start: 03-29-2024 Blood Sugar Diagnostic (Onetouch Ultra Test) strip Start: 12-21-2023 Lancets (E-Z Jec t Lancets) 30 gauge misc Start: 12-21-2023 Blood Sugar Diagnostic (Onetouch Ultra Test) strip Start: 12-21-2023 Lancets (E-Z Jec t Lancets) 30 gauge misc Start: 12-21-2023 Blood Sugar Diagnostic (Onetouch Ultra Test) strip Start: 12-21-2023 Lancets (E-Z Jec t Lancets) 30 gauge misc Start: 12-21-2023 Blood Sugar Diagnostic (Onetouch Ultra Test) strip Start: 12-21-2023 Lancets (E-Z Jec t Lancets) 30 gauge misc Start: 12-21-2023 Goals Date Patient Goal Desired [...] was advised to call if any questions. Functional Status Date Assessment Result Facility 04-03-2025 Functional status Ambulates [facility] Work Phone: 04-03-2025 Functional status Ambulates [facility] Work Phone: 04-02-2025 Functional status Ambulates [facility] Work Phone: Mental Status Date Assessment Result Facility 04-21-2025 Cognitive function Voice/Name [facility] Work Phone: 04-03-2025 Cognitive function Voice/Name [facility] Work Phone: 04-02-2025 Cognitive function Voice/Name [facility] Work Phone: 04-01-2025 Cognitive function Awake;Alert;A ppropriate;Fo llows Commands [facility] Work Phone: Clinical Notes 09-28-2021 to 04-21-2025 Note Date & Type Note Facility 04-21-2025 Discharge summary [facility] 04-21-2025 Radiology Diagnostic study note [facility] Imaging Services [address] [place] [address] CTA Chest W/WO Contrast MR#: [id number] Acct: [id number] Name: EAMON HUSTON Rep #: [id number] : 1960 F 64 From: [facility] cruz Langford MD PCP: ESTEBAN Castellanos Status: REG ER Study:CTA Chest W/WO Contrast Date of Exam: 04/21/25 Exam# [id number] Ordering Dr: Rangel Jang DO PROCEDURE: CTA CHEST W/WO CONTRAST 04/21/2025 REASON FOR EXAM: SOB, ELEVATED DIMER TECHNIQUE: CTA CHEST W/WO CONTRAST Multiplanar Sagittal and Coronal images were obtained. 3D post processing was performed. CONTRAST: Isovue 370 VOLUME: 100 mL One or more dose reduction techniques were used (e.g., Automated exposure control, adjustment of the mA and/or kV according to patient size, use of iterative reconstruction technique). RADIATION DOSE SUMMARY: DLP: 426.18 mGycm COMPARISON: Radiographs from earlier today. No prior CT available. FINDINGS: PULMONARY VESSELS: No filling defects identified suspicious for pulmonary arterial emboli. Normal caliber of the pulmonary trunk. No evidence for right heart strain. LUNGS/PLEURA: Trace bilateral pleural effusions. Multifocal bilateral patchy predominantly ground-glass airspace consolidation mainly within the bilateral lower lobes, with less pronounced involvement of theright middle lobe and right upper lobe, most likely reflecting alveolar pulmonary edema, although pneumonia may be present inthe appropriate clinical context. No pneumothorax. Patent airways. MEDIASTINUM/NODES: No suspicious lymph node enlargement. Nonspecific nonenlarged mediastinal and hilar lymph nodes are likely reactive. No axillary lymphadenopathy. HEART: Mildly enlarged. No pericardial effusion. Mild-moderate coronary arterycalcifications with the presence of arterial stents. Left chest wall multilead ICD in appropriate positioning. THORACIC AORTA: Normal in course and caliber. Minimal atherosclerotic calcifications. UPPER ABDOMEN: Small 13 mm left adrenal gland nodule compatible with a benign fatty adenoma. Otherwise, unremarkable. BONES: Within normal limits. CT/CTA Chest W/WO Contrast IMPRESSION: No pulmonary arterial emboli identified. Cardiomegaly with pulmonary edema and trace bilateral pleural effusions. Reading Location: [facility] CC: ESTEBAN Garcia; Dr. Mago Jang DO ~ Php Mysql Web Developer: Signed [facility] 04-21-2025 Radiology Diagnostic study note [facility] Imaging Services [address] [place] [address] Chest 1 View (Portable) MR#: [id number] Acct: [id number] Name: EAMON HUSTON Rep #: [id number] : 1960 F 64 From: Deb Cooley MD PCP: ESTEBAN Castellanos Status: REG ER Study:Chest 1 View (Portable) Date of Exam: 04/21/25 Exam# [id number] Ordering Dr: Rangel Jang DO EXAM: XR Chest, 1 View CLINICAL INDICATION: CHEST PAIN TECHNIQUE: Frontal view of the chest. COMPARISON: No relevant prior studies available. FINDINGS: LUNGS AND PLEURAL SPACES: See below. HEART: Cardiomegaly with mild congestion. MEDIASTINUM: Unremarkable. Normal mediastinal contour. BONES/JOINTS: Unremarkable. No acute fracture. TUBES, LINES AND DEVICES: Left-sided cardiac pacemaker. RAD/Chest 1 View (Portable) IMPRESSION: Cardiomegaly with mild congestion. Reading Location: [facility] CC: EXERCISE RIDERNick Garcia; Dr. Mago Jang DO ~ Php Mysql Web Developer: Signed [facility] 04-21-2025 Discharge summary Note Date/Time April 21, 2025 6:32pm [facility] Medical Records Department [address] [place] [address] Emergency Department Summary 04/21/25 MR#: [id number] Acct: [id number] Name: EAMON HUSTON Rep #:[id number] : 1960 64 From: Mago Danielson PCP: ESTEBAN Castellanos Status:REG ER Location: ED HPI History of Present Illness Chief Complaint: Chest Pain Informant: patient Narrative Narrative: Patient 64-year-old female with history of coronary artery disease (status post stent states she is scheduled for second stent to be placed on April 29), biventricular ICD, heart failure with reduced ejection fraction, diabetes mellitus and atrial fibrillation (is not on oral anticoagulation) presenting with sudden onset of chest tightness, shortness of breath and cough. Patient states she actually was feeling well today. Overall she is been feeling much better since she had a stent placed 2 weeks ago. She states she has to have a second stent because they could not reach the spot through her right wrist initially. She states that last night she did notice when she checked her blood pressure and heart rate (has been doing this regularly) her blood pressure is little up but her heart rate was 109. This afternoon prior to arrival she got into a verbal argument with her neighbor. She then started to have pressure in the center of her chest and feltshort of breath. She started coughing up mucus and foam that was pink-colored. She came in for further evaluation. States she is never had this happen to her before as far as the coughing and shortness of breath. She states the chest pressure/discomfort felt like the last time she got a stent. She denies any recent fevers, leg swelling, change in urine output or other complaints. She knows she has been sleeping well at night. Cardiology note from 04/13/2025 reviewed?patient cardiac catheterization on 04/02 which had 95% stenosis of the mid left circumflex, 80% stenosis of her mid rightcoronary artery and 80% stenosis of her mid LAD as well as 70% stenosis of her distal LAD. She had successful PCI to the left circumflex and IFR to the LAD. Will need staged PCI to the LAD. EF 25%. [facility] Acute non-ST elevation myocardial infarction (NSTEMI) CAD (coronary artery disease) Congestive heart failure Arteriosclerosis of coronary artery Biventricular automatic implantable cardioverter defibrillator in situ ESBL (extended spectrum beta-lactamase) producing bacteria infection Neuropathy Myocardial infarct GERD (gastroesophageal reflux disease) Diabetes type 2, uncontrolled Hypertension Pacemaker Cardiac defibrillator in place Home Medications ?Medication ?Instructions ?Recorded ?Last Taken ?Type blood sugar diagnostic (OneTouch #100 ea 12/21/23 Unkn own Rx Ultra Test strips) lancets 30 gauge (E-Z Ject Lancets) #100 ea 12/21/23 U nknown Rx digoxin 125 mcg (0.125 mg) tablet 125 mcg PO DAILY hea rt #30 tabs 03/20/25 04/21/25 Rx losartan 50 mg tablet 50 mg PO DAILY bp #30 tabs 0 03/20/25 04/21/25 Rx metformin 850 mg tablet 850 mg PO BID diabetes #60 t abs 03/20/25 04/21/25 Rx metoprolol succinate 100 mg 100 mg PO DAILY heart #30 tabs 03/20/25 04/21/25 Rx tablet,extended release 24 hr nitroglycerin 0.4 mg sublingual 0.4 mg sublingual Q5-1 5M PRN chest 03/20/25 Unknown Rx tablet pain #30 tabs omeprazole 40 mg capsule,delayed 40 mg PO DAILY PRN GE RD #30 caps 03/20/25 04/01/25 09:00 Rx release aspirin 81 mg chewable tablet 81 mg PO BREAKFAST 30 da ys #30 tabs 04/02/25 04/21/25 Rx ezetimibe 10 mg tablet 10 mg PO DAILY 30 days #30 t abs 04/02/25 04/21/25 Rx furosemide 20 mg tablet 20 mg PO DAILY Swelling #30 tabs 04/02/25 04/21/25 Rx insulin glargine-yfgn 100 unit/mL 15 unit (0.15 mL) landrum bcut QHS 30 04/02/25 Rx (3 mL) subcutaneous pen days #4.5 mL insulin lispro 100 unit/mL See Protocol subcut ACHS #1 5 mL 04/02/25 04/21/25 Rx subcutaneous pen (Humalog KwikPen (U-100) Insulin) rosuvastatin 20 mg tablet (Crestor) 20 mg PO DAILY 30 days #30 tabs 04/02/25 04/20/25 Rx spironolactone 25 mg tablet 12.5 mg (1/2 x 25 mg) PO D AILY 30 04/02/25 04/21/25 Rx days #15 tabs cholecalciferol (vitamin D3) 10 10 mcg PO DAILY 30 day s #30 caps 04/13/25 04/21/25 Rx mcg (400 unit) capsule (Vitamin D3) clopidogrel 75 mg tablet (Plavix) 75 mg PO QDAY #94 ta bs 04/13/25 04/21/25 Rx glucosamine 750 ox-labhotzeyko-wwm 2 tab PO DAILY 03/2504/21/25 History no1 644 mg-C 30 mg-mar 1 mg tablet (Osteo Bi-Flex Triple Strength) Allergy/AdvReac Type Severity Reaction Status Date / Time sitagliptin (From Januvia) Allergy Severe Rash Verified 04/21/25 13:49 Weuummd-KME-OzH Reductase Allergy Intermediate cramps Verified 04/21/25 13:49 Inhibitor (Eecslnh-Gll-Hup Reductase Inhibitor) dapagliflozin (From [facility]) AdvReac Severe yeast Verified 04/21/25 13:49 Family History Sister Breast cancer Diabetes Thyroid disorder Mother CVA (cerebral vascular accident) Diabetes Heart disease Myocardial infarction Father Heart disease Myocardial infarction Other Acute non-ST elevation myocardial infarction (NSTEMI) CAD (coronary artery disease) Surgical History Stented coronary artery (04/03/25) H/O tubal ligation H/O heart artery stent Social History Smoking Status: Former smoker ROS ROS ED Constitutional Constitutional ED: Denies chills, fever(s) or sweats ENT ENT ED: Denies rhinorrhea or sore throat Cardiovascular Cardiovascular: Reports as per HPI and chest pain; Denies palpitations or racingheartbeat Respiratory/Chest Respiratory/Chest: Reports cough, dyspnea and sputum Gastrointestinal Gastrointestinal: Denies abdominal pain, nausea or vomiting Musculoskeletal Musculoskeletal: Denies arthralgias or myalgias Integumentary Denies rash Neurologic Neurologic: Denies weakness Psychiatric Psychiatric: Denies anxiety or depression Hematologic/Lymphatic Hematologic/Lymphatic: Denies easy bleeding or easy bruising EXAM Physical Exam Const Vital Signs: 04/21/25 13:45 04/21/25 13:48 04/21/25 13:52 Temperature 98.4 F 98.4 F Temperature Source Oral Oral Pulse Rate 119 H 118 H Respiratory Rate 31 H 31 H Respiratory Effort Short of Breath Blood Pressure 137/75 H 137/75 H Blood Pressure Mean 95 95 Pulse Ox 88 88 Oxygen Delivery Method Room Air Room Air Oxygen Flow Rate (L/min) 04/21/25 14:03 04/21/25 14:03 04/21/25 14:09 Temperature Temperature Source Pulse Rate Respiratory Rate 22 H Respiratory Effort Blood Pressure Blood Pressure Mean Pulse Ox 90 90 93 Oxygen Delivery Method Nasal Cannula Nasal Cannula Nasal Cannula Oxygen Flow Rate (L/min) 2 4 4 04/21/25 14:16 04/21/25 14:33 04/21/25 14:48 Temperature 97.7 F L Temperature Source Oral Pulse Rate 112 H 119 H 110 H Respiratory Rate 23 H Respiratory Effort Blood Pressure 145/81 H 121/66 H 141/83 H Blood Pressure Mean 102 Pulse Ox 95 Oxygen Delivery Method Nasal Cannula Oxygen Flow Rate (L/min) 2 04/21/25 16:00 04/21/25 16:35 04/21/25 17:00 Temperature 97.7 F L 97.8 F Temperature Source Oral Oral Pulse Rate 94 80 100 Respiratory Rate 18 18 25 H Respiratory Effort Blood Pressure 117/78 122/63 H 107/53 L Blood Pressure Mean 91 82 71 Pulse Ox 95 93 93 Oxygen Delivery Method Nasal Cannula Room Air Room Air Oxygen Flow Rate (L/min) 2 04/21/25 17:56 Temperature 97.9 F Temperature Source Pulse Rate 103 H Respiratory Rate 25 H Respiratory Effort Blood Pressure 114/80 Blood Pressure Mean 91 Pulse Ox 96 Oxygen Delivery Method Oxygen Flow Rate (L/min) Positive well nourished and well developed General Appearance ED: well developed and NAD HEENT Reports moist mucous membranes Eyes PERRL and EOMs intact bilaterally Neck supple and no JVD Chest Wall inspection of chest normal and palpation of chest normal Resp normal respiratory effort Resp Narrative: Basilar crackles present Cardio regular rhythm and no murmurs Rate: tachycardic GI normal to inspection, nondistended, normoactive bowel sounds and soft to palpation Extremity normal to inspection General Extremety ED: Negative for edema General Extremity: Negative for edema Neuro oriented x3 Sensorium / Orientation: awake and alert Motor Exam: Negative for general weakness Psych mental status grossly normal Skin no rashes or lesions noted and no wounds MDM MDM MDM Narrative Medical decision making narrative: Patient evaluated for sudden onset of chest tightness and shortness of breath and cough. Presentation concerning for developing flash pulmonary edema, ACS and differential also includes PE, pneumonia and CHF exacerbation. Patient given aspirin, nitroglycerin and Lasix in the emergency room. Cardiac workup obtained. At this time she is not in full flash pulmonary edema and her breathing seems to be improving. Does not require noninvasive ventilation. Patient tolerated sublingual nitroglycerin. No significant change in her chest discomfort. Will be given Nitropaste. Chest x-ray viewed by myself shows cephalization consistent with CHF with no acute effusions or infiltrate. Patient's workup shows mild hemoconcentration with elevation of her white blood cell count of 13.9 as well as elevation for hemoglobin of 16.3. Platelets are normal. No left shift. D-dimer is elevated and CTA is added on. This shows cardiomegaly with pulmonary edema and trace bilateral pleural effusions but no PE. BMP largely normal.-See troponin mildly elevated and 36 (this is down significantly compared to her troponins on 04/03). BNP is elevated 1800 and increased compared to her most recent admission. Patient is titrated off of oxygen is now 93% on room air. She is ambulated however and drops to 88% and is quite symptomatic. She no longer has chest pain. Case is discussed with hospitalist will be admitted for concern of acute heart failure associated with potential flash pulmonary edema. Lab Data Attestation: I reviewed the patient's lab results. Labs: Laboratory Results - last 24 hr 04/21/25 04/21/25 13:52 15:56 WBC 13.9 H RBC 5.44 H Hgb 16.3 H Hct 49.5 H MCV 91.0 MCH 30.0 MCHC 32.9 RDW Std Deviation 43.5 RDW Coeff of Cally 13.1 Plt Count 237 MPV 12.9 H Immature Gran % (Auto) 0.400 Neut % (Auto) 73.2 H Lymph % (Auto) 18.2 L Crosby % (Auto) 7.2 Eos % (Auto) 0.3 Baso % (Auto) 0.7 Absolute Neuts (auto) 10.2 H Absolute Lymphs (auto) 2.53 Nucleated RBC % 0 PT 12.9 INR 1.0 APTT 27.2 D-Dimer Quant (PE/DVT) 0.98 H* Sodium 135 Potassium 4.1 Chloride 99 Carbon Dioxide 18.1 L Anion Gap 18 H BUN 9 Creatinine 0.69 L Estim Creat Clear Calc 97.34 Est GFR (MDRD) Non-Af 98 BUN/Creatinine Ratio 13.6 Glucose 320 H Calcium 9.3 Magnesium 1.8 Troponin T High Sens 26 H D Troponin T Hi Sens 2 Hr 36 H NT pro BNP II 1818 H Radiography Diagnostic Testing: Clinical Impression(s) from Imaging Studies Chest X-Ray 04/21/25 14:20 IMPRESSION: Cardiomegaly with mild congestion. Reading Location: [facility] Chest CTA 04/21/25 14:47 IMPRESSION: No pulmonary arterial emboli identified. Cardiomegaly with pulmonary edema and trace bilateral pleural effusions. Reading Location: [facility] Rhythm Strip Rhythm Strip: Paced Rate: 114 Ectopy: None EKG Initial EKG: Attestation: I personally reviewed and interpreted this EKG as follows: Interpretation: Paced Comments: Atrial sensed ventricular paced rhythm at a rate of 114 bpm T wave inversions in 1, aVL as well as V2. Prior EKG tracings: available for review Prior: Unchanged Management Discussion w/another healthcare provider: Hospitalist Discharge Plan Triage Chief Complaint: Chest Pain ED Provider: Mago Jang Dx/Rx/DC Orders Clinical Impression: Chest pain, HFrEF (heart failure with reduced ejection fraction), Flash pulmonary edema, History of coronary artery disease Prescriptions: No Action clopidogrel [Plavix] 75 mg tablet 75 mg PO QDAY Qty: 94 3RF Rx Instructions: You will take 4 tablets on day one, and then one tablet daily. cholecalciferol (vitamin D3) [Vitamin D3] 10 mcg (400 unit) capsule 10 mcg PO DAILY 30 Days Qty: 30 0RF (DME) OneTouch Ultra Test Strip See Rx Instructions .Route Qty: 100 12RF Rx Instructions: As directed (DME) lancets [E-Z Ject Lancets] 30 gauge misc See Rx Instructions .Route Qty: 100 3RF Rx Instructions: As directed digoxin 125 mcg (0.125 mg) tablet 125 mcg PO DAILY Qty: 30 12RF losartan 50 mg tablet 50 mg PO DAILY Qty: 30 12RF metformin 850 mg tablet 850 mg PO BID Qty: 60 12RF metoprolol succinate 100 mg tablet extended release 24 hr 100 mg PO DAILY Qty: 30 12RF nitroglycerin 0.4 mg tablet, sublingual 0.4 mg SUBLINGUAL Q5-15M PRN (Reason: chest pain) Qty: 30 12RF Rx Instructions: until response; do not exceed 3 doses per episode omeprazole 40 mg capsule,delayed release(DR/EC) 40 mg PO DAILY PRN (Reason: GERD) Qty: 30 12RF aspirin 81 mg Tablet,Chewable 81 mg PO BREAKFAST 30 Days Qty: 30 0RF ezetimibe 10 mg Tablet 10 mg PO DAILY 30 Days Qty: 30 0RF insulin glargine-yfgn 100 unit/mL (3 mL) Insulin Pen 15 unit subcut QHS 30 Days Qty: 4.5 0RF Rx Instructions: Please provide enough for 1 month supply. insulin lispro [Humalog KwikPen Insulin] 100 unit/mL Insulin Pen See Protocol subcut ACHS Qty: 15 0RF Protocol: 4. Sliding Scale Insulin High-Med Dosing Condition: 150-199 mg/dl = 2 units Condition: 200-259 mg/dl = 4 units Condition: 260-324 mg/dl = 6 units Condition: 325-374 mg/dl = 8 units Condition: 375-409 mg/dl = 10 units Condition: 410-449 mg/dl = 11 units Condition: Greater than 449 call physician Protocol Text: Suggested for: - Patients on Total Daily Insulin Dose of 56-80 units - Patient who are known to be insulin resistant or septic HIGH MEDIUM DOSING ALGORITHM Rx Instructions: Please provide enough for 1 month supply. spironolactone 25 mg tablet 12.5 mg PO DAILY 30 Days Qty: 15 0RF Rx Instructions: Hold for SBP < 110 rosuvastatin [Crestor] 20 mg tablet 20 mg PO DAILY 30 Days Qty: 30 0RF furosemide 20 mg tablet 20 mg PO DAILY Qty: 30 12RF Osteo Bi-Flex Triple Strength 750 mg-644 mg- 30 mg-1 mg tablet 2 tab PO DAILY Primary Care Provider: Naima Garcia NP Referrals: Naima Garcia NP, EXERCISE RIDER-C [Primary Care Provider] - Print Language: Israeli Disposition Disposition: Acute Care Hospital [facility] What to do if you have Problems For any increased pain, shortness of breath, bleeding, nausea or vomiting, chestpain, or any unexpected problems, contact your Primary Care Provider. Call [facility] ([phone]) or report to the closest Emergency Room. Call 911 if necessary. 04/21/25 [id number] <Electronically signed by Mago Jang DO> Cosigner Signature (if applicable): CC: EXERCISE RIDER-C Naima Garcia ~ Signed [facility] Work Phone: [phone]) 513-129907-11-2025 Progress note Author Kalen Edwards [facility] Note Date/Time April 03, 2025 9:44 am [facility] Medical Records Department [address] [place] [address] Progress Note - Cardiology 04/03/25 0939 MR#: [id number] Acct: [id number] Name: EAMON HUSTON Rep #:[id number] : 1960 64 From: Kalen Edwards MD PCP: ESTEBAN Castellanos Status:ADM IN Location: [place] [address] Subjective Subjective She is doing well she denies any chest pain or shortness of breath . Radial access site with no hematoma. Objective Data Vital Signs: Vital Signs Temp Pulse Resp BP Pulse Ox O2 Del Method O2 Flow Rate 97.6 F L 88 18 107/66 96 Room Air 2 04/03/25 08:36 04/03/25 08:42 04/03/25 08:36 04/03/25 08:36 04/03/25 08:36 04/03/25 08:36 04/03/25 03:00 Oxygen Flow Rate (L/min) 2 Oxygen Delivery Method Room Air Weight: 205 lb 0.478 oz Body Mass Index (BMI) 33.0 Intake & Output: Intake and Output for Last 24 Hours 04/01/25 04/02/25 04/03/25 23:59 23:59 23:59 Intake Total 1641.3 / 1641.3 Output Total 550 / 750 200 / 200 Balance 1091.3 / 891.3 -200 / -200 Lab / Micro Data 04/03/25 05:38 04/03/25 05:38 Labs: Laboratory Results - last 24 hr 04/02/25 06:16: Vitamin D 25-Hydroxy 36.7 04/02/25 11:40: Activated Clotting Time 187 H 04/02/25 11:52: Activated Clotting Time 377 H 04/02/25 14:24: POC Glucose 237 H 04/02/25 17:09: POC Glucose 289 H 04/02/25 21:09: POC Glucose 303 H 04/03/25 05:38: WBC 6.0, RBC 4.61, Hgb 13.9, Hct 42.3, MCV 91.8, MCH 30.2, MCHC 32.9, RDW Std Deviation 47.4 H, RDW Coeff of Cally 14.2, Plt Count 206, MPV 12.8 H, Immature Gran % (Auto) 0.200, Neut % (Auto) 51.4, Lymph % (Auto) 34.3, Crosby % (Auto) 11.9 H, Eos % (Auto) 1.2, Baso % (Auto) 1.0, Absolute Neuts (auto) 3.1, Absolute Lymphs (auto) 2.04, Nucleated RBC % 0, Sodium 137, Potassium 3.8, Chloride 103, Carbon Dioxide 22.5, Anion Gap 12, BUN 13, Creatinine 0.54 L, Estim Creat Clear Calc 124.11, Est GFR (MDRD) Non-Af 104, BUN/Creatinine Ratio 25.0 H, Glucose 250 H, Calcium 9.1, Phosphorus 4.2, Magnesium 2.0, Total Bilirubin 0.59, AST 26, ALT 57 H, Alkaline Phosphatase 127 H, Total Protein 6.4,Albumin 3.8, Globulin 2.6, Albumin/Globulin Ratio 1.5, Triglycerides 335 H, Cholesterol 218 H, LDL Cholesterol, Calc 123, VLDL Cholesterol 67 H, HDL Cholesterol 28 L, Cholesterol/HDL Ratio 7.87 04/03/25 06:30: POC Glucose 231 H Rhythm Strip Rhythm Strip: Sinus Tach Rate: 125 Ectopy: PVC(s) Cardiology Labs/Tests 04/03/25 05:38: WBC 6.0, RBC 4.61, Hgb 13.9, Hct 42.3, MCV 91.8, MCH 30.2, MCHC 32.9, Plt Count 206, MPV 12.8 H, Immature Gran % (Auto) 0.200, Neut % (Auto) 51.4, Lymph % (Auto) 34.3, Crosby % (Auto) 11.9 H, Eos % (Auto) 1.2, Baso % (Auto)1.0, Absolute Neuts (auto) 3.1, Nucleated RBC % 0, Sodium 137, Potassium 3.8, Chloride 103, Carbon Dioxide 22.5, Anion Gap 12, BUN 13, Creatinine 0.54 L, Est GFR (MDRD) Non-Af 104, BUN/Creatinine Ratio 25.0 H, Glucose 250 H, Calcium 9.1, Phosphorus 4.2, Magnesium 2.0, Total Bilirubin 0.59, Triglycerides 335 H, Cholesterol 218 H, VLDL Cholesterol 67 H, HDL Cholesterol 28 L, Cholesterol/HDL Ratio 7.87 Rhythm: EKG: ECHO: Stress Test: Cardiac Cath: PCI: CT Surgery: Holter monitor: EPS: PPM: CXR: Chest CT Scan: Radiography Diagnostic Testing: Radiology Impression Echocardiogram 04/02/25 00:06 Interpretation Summary Severe global left ventricular systolic dysfunction. The LV ejection fraction is 25 %. Focal on global wall moition ICD or pacer leads identified within the right ventricle. There is evidence of diastolic dysfunction. Moderate pulmonary hypertension. Severely dilated left ventricle. Ordering Physician: Franko Ceuto Referring Physician: Naima Garcia Performed By: Lydia Atkins RVT, RDCS and Student Chest X-Ray 04/02/25 15:07 IMPRESSION: Left thoracic transvenous pacemaker with leads appears unchanged. The cardiomediastinal silhouette is stable, without evidence of cardiomegaly. Lungs are hypoinflated, but no acute pneumonic process is clearly identified. No pleural effusion or pneumothorax is seen. No acute osseous process is evident. Reading Location: [address] Physical Exam Const alert HEENT normocephalic Eyes PERRL Neck full ROM Resp normal respiratory effort Cardio S1 normal heart sound no CVA tenderness Extremity normal to inspection Assessment & Plan Assessment/Plan (1) Acute non-ST elevation myocardial infarction (NSTEMI): PLAN: Status post PCI to left circumflex. Continue with aspirin and Plavix [she had shortness of breath while she is on Brilinta and insurance did not cover it] Continue with Zetia and Crestor. If she continues to have cramps as an outpatient to be started on PCSK9 (2) HFrEF (heart failure with reduced ejection fraction): PLAN: Compensated NYHA class III stage C Status post BiV ICD in 2012 Continue with losartan, metoprolol succinate, spironolactone. Start SGLT2 inhibitor as an outpatient. 04/03/25 0944 <Electronically signed by Kalen Edwards MD> Cosigner Signature (if applicable): CC: ~ Signed [facility] Work Phone: [phone]) 673-700307-11-2025 Progress note [facility] Medical Records Department [address] [place] [address] Progress Note - Cardiology 04/03/25938 MR#: [id number] Acct: [id number] Name: EAMON HUSTON Rep #:[id number] : 1960 64 From: Kalen Edwards MD PCP: ESTEBAN Castellanos Status:ADM IN Location: [place] [address] Subjective Subjective She is doing well she denies any chest pain or shortness of breath . Radial access site with no hematoma. Objective Data Vital Signs: Vital Signs Temp Pulse Resp BP Pulse Ox O2 Del Method O2 Flow Rate 97.6 F L 88 18 107/66 96 Room Air 2 04/03/25 08:36 04/03/25 08:42 04/03/25 08:36 04/03/25 08:36 04/03/25 08:36 04/03/25 08:36 04/03/25 03:00 Oxygen Flow Rate (L/min) 2 Oxygen Delivery Method Room Air Weight: 205 lb 0.478 oz Body Mass Index (BMI) 33.0 Intake & Output: Intake and Output for Last 24 Hours 04/01/25 04/02/25 04/03/25 23:59 23:59 23:59 Intake Total 1641.3 / 1641.3 Output Total 550 / 750 200 / 200 Balance 1091.3 / 891.3 -200 / -200 Lab / Micro Data 04/03/25 05:38 04/03/25 05:38 Labs: Laboratory Results - last 24 hr 04/02/25 06:16: Vitamin D 25-Hydroxy 36.7 04/02/25 11:40: Activated Clotting Time 187 H 04/02/25 11:52: Activated Clotting Time 377 H 04/02/25 14:24: POC Glucose 237 H 04/02/25 17:09: POC Glucose 289 H 04/02/25 21:09: POC Glucose 303 H 04/03/25 05:38: WBC 6.0, RBC 4.61, Hgb 13.9, Hct 42.3, MCV 91.8, MCH 30.2, MCHC 32.9, RDW Std Deviation 47.4 H, RDW Coeff of Cally 14.2, Plt Count 206, MPV 12.8 H, Immature Gran % (Auto) 0.200, Neut % (Auto) 51.4, Lymph % (Auto) 34.3, Crosby % (Auto) 11.9 H, Eos % (Auto) 1.2, Baso % (Auto) 1.0, Absolute Neuts (auto) 3.1, Absolute Lymphs (auto) 2.04, Nucleated RBC % 0, Sodium 137, Potassium 3.8, Chloride 103, Carbon Dioxide 22.5, Anion Gap 12, BUN 13, Creatinine 0.54 L, Estim Creat Clear Calc 124.11, Est GFR (MDRD) Non-Af 104, BUN/Creatinine Ratio 25.0 H, Glucose 250 H, Calcium 9.1, Phosphorus 4.2, Magnesium 2.0, Total Bilirubin 0.59, AST 26, ALT 57 H, Alkaline Phosphatase 127 H, Total Protein 6. 4,Albumin 3.8, Globulin 2.6, Albumin/Globulin Ratio 1.5, Triglycerides 335 H, Cholesterol 218 H, LDL Cholesterol, Calc 123, VLDL Cholesterol 67 H, HDL Cholesterol 28 L, Cholesterol/HDL Ratio 7.87 04/03/25 06:30: POC Glucose 231 H Rhythm Strip Rhythm Strip: Sinus Tach Rate: 125 Ectopy: PVC(s) Cardiology Labs/Tests 04/03/25 05:38: WBC 6.0, RBC 4.61, Hgb 13.9, Hct 42.3, MCV 91.8, MCH 30.2, MCHC 32.9, Plt Count 206, MPV 12.8 H, Immature Gran % (Auto) 0.200, Neut % (Auto) 51.4, Lymph % (Auto) 34.3, Crosby % (Auto) 11.9 H, Eos % (Auto) 1.2, Baso % (Auto)1.0, Absolute Neuts (auto) 3.1, Nucleated RBC % 0, Sodium 137,Potassium 3.8, Chloride 103, Carbon Dioxide 22.5, Anion Gap 12, BUN 13, Creatinine 0.54 L, Est GFR (MDRD) Non-Af 104, BUN/Creatinine Ratio 25.0 H, Glucose 250 H, Calcium 9.1, Phosphorus 4.2, Magnesium 2.0, Total Bilirubin 0.59, Triglycerides 335 H, Cholesterol 218 H, VLDL Cholesterol 67 H, HDL Cholesterol 28 L, Cholesterol/HDL Ratio 7.87 Rhythm: EKG: ECHO: Stress Test: Cardiac Cath: PCI: CT Surgery: Holter monitor: EPS: PPM: CXR: Chest CT Scan: Radiography Diagnostic Testing: Radiology Impression Echocardiogram 04/02/25 00:06 Interpretation Summary Severe global left ventricular systolic dysfunction. The LV ejection fraction is 25 %. Focal on global wall moition ICD or pacer leads identified within the right ventricle. There is evidence of diastolic dysfunction. Moderate pulmonary hypertension. Severely dilated left ventricle. Ordering Physician: Franko Cueto Referring Physician: Naima Garcia Performed By: Wilbert PATINO RDCS, Lydia and Student Chest X-Ray 04/02/25 15:07 IMPRESSION: Left thoracic transvenous pacemaker with leads appears unchanged. The cardiomediastinal silhouette is stable, without evidence of cardiomegaly. Lungs are hypoinflated, but no acute pneumonic process is clearly identified. No pleural effusion or pneumothorax is seen. No acute osseous process is evident. Reading Location: [address] Physical Exam Const alert HEENT normocephalic Eyes PERRL Neck full ROM Resp normal respiratory effort Cardio S1 normal heart sound no CVA tenderness Extremity normal to inspection Assessment & Plan Assessment/Plan (1) Acute non-ST elevation myocardial infarction (NSTEMI): PLAN: Status post PCI to left circumflex. Continue with aspirin and Plavix [she had shortness of breath while she is on Brilinta and insurance did not cover it] Continue with Zetia and Crestor. If she continues to have cramps as an outpatient to be started on PCSK9 (2) HFrEF (heart failure with reduced ejection fraction): PLAN: Compensated NYHA class III stage C Status post BiV ICD in 2012 Continue with losartan, metoprolol succinate, spironolactone. Start SGLT2 inhibitor as an outpatient. 04/03/2544 Cosigner Signature (if applicable): CC: ~ Signed [facility]07-11-2025 Discharge summary Author Amaris Gomez [facility] Note Date/Time April 03, 2025 7:20 am [facility] Medical Records Department [address] [place] [address] Instructions for Home/Discharge Instructions 04/03/25 0719 MR#: [id number] Acct: [id number] Name: EAMON HUSTON Rep #:[id number] : 1960 64 From: Amaris Gomez MD PCP: ESTEBAN Castellanos Status:ADM IN Discharge Instructions Diet Discharge Diet: Low fat / Low cholesterol and 1800 Calorie Control Diet DC O2, CPAP, BIPAP needs Home O2 Discharge instructions: No Dressing / Incision Discharge Activity: - (See detailed instructions on plan sheet.) May resume sexual activity in: - (Defer until re-evaluation per Cardiology at follow-up.) Weight Bearing Status: Weight bearing as tolerated Dressing / Incision Call your doctor if your incision/area has: Continuous Slow Oozing, Sudden Increased Bleeding, Increased Pain/ Swelling, Increased Redness, Foul Smelling Discharge and Swelling at the incision site Call your doctor if you observe: Fever of 101 or Higher, Shortness of breath, Dizziness, Swelling in the ankles, Chest pain, Increased palpitations (irregularheartbeat), Calf discomfort and Uncontrolled pain Follow Up Care Test Results: Test results from this visit will be discussed in further detail at your follow- up appointment, if applicable. Discharge Plan Admission Admit Date/Time: 04/02/25 00:02 Primary Reason for Your Visit: NSTEMI w/ CAD w/ stenoses requiring PCI intervention, HFrEF Exacerbation Attending Provider: Amaris Gomez Primary Care Provider: Naima Garcia NP Consulting Providers: Franko Cueto; Mino Zhang Instructions Patient Instructions: Heart Failure Meds, Heart Failure Flare Up Signs, Coping with Heart Failure, Heart Failure Dc, PCI Blood Thinners, PCI Follow Up, PCI Lifestyle Changes Additional Instructions / Restrictions: ADDITIONAL DISCHARGE INSTRUCTIONS/FOLLOW-UP: Acute NSTEMI (heart attack) w/ CAD s/p prior PCI history requiring PCI intervention during admission with Acute on Chronic Mild HFrEF Exacerbation: --Cardiac troponin enzyme trend series elevated but trended downward 152 > 142 >127 > 132. --ED presentation EKG with sinus tachycardia with frequent PAC/PVC with nonspecific interventricular block and T wave abnormalities. --NT-proBNP 1180. --ED Chest x-ray showed cardiomegaly with vascular congestion. --FLP with triglyceride 316, total cholesterol 220, LDL 125, VLDL 63, HDL 32 --04/02/25 ECHO w/ Severe global LV systolic dysfunction, LVEF 25%, focal and global wall motion abnormality, evidence diastolic dysfunction, moderate pulmonary hypertension, severely dilated LV with most recent records prior to this from clinic seeing with an echocardiogram in 2017 with EF 35% at that time. --04/02/25 Cardiac catheterization with significantly stenosed circumflex with MORGAN/PCI performed with also stenosis in the LAD; however, not able to perform PCI secondary to radial approach with plan for medical management. --Per cardiology direction you have been initiated on continue baby aspirin, Plavix Zetia, mid dose Crestor which although it is a statin therapy can often have less side effects than others with preference for at least a trial per cardiology, low-dose spironolactone in addition to continued home dosing of metoprolol and losartan. Given the addition of spironolactone please have follow-up blood pressure check with primary care physician and if your systolic blood pressure is less than 110 preferentially hold temporarily the spironolactone until follow-up with cardiology but please notify their office ofthese results when it occurs. --Please have repeat basic metabolic panel at follow-up with your primary care physician. --Please perform daily weight checks using the same machine and if your weight increases by > 5 lbs please notify your cardiology office immediately to review possible diuretic change options. Diabetes mellitus type II, poorly controlled with hyperglycemia: --During the admission you had notably elevated blood sugars with poorly controlled underlying diabetes with recent hemoglobin A1c noted to be 11.7%. Atthis time during admission you had significantly elevated blood sugars thereforewe recommend you continue the oral diabetic regimen but at the same time given the levels and your presentation with worsening coronary disease requiring percutaneous intervention you have been initiated on once daily long-acting in addition to recommended insulin sliding scale. We strongly encourage continued diet and lifestyle changes in addition to these medication changes. We have referred you also to endocrinology. CARDIOLOGY PCI POST-CATHETERIZATION INSTRUCTIONS: Lifting: Must be less than 5 lbs for 5 days, No restrictions after 14 days Shower: Yes Climb stairs: Yes Bathing in tub or submerged water: No, until cleared per Cardiology at follow- up(call office if any concerns [phone] and may leave voicemail if after hours). Walkin minutes 3 times daily, increase as tolerated. Driving: Resume in 7 days Sexual activity: Resume in 14 days Regular activity: Resume 14 days ADDITIONAL: --Your vitamin D level was low end normal range. We have started you on a daily oral vitamin D supplement. Please have repeat levels outpatient. Discharge Orders/Prescriptions Prescriptions: New aspirin 81 mg Tablet,Chewable 81 mg PO BREAKFAST 30 Days Qty: 30 0RF ezetimibe 10 mg Tablet 10 mg PO DAILY 30 Days Qty: 30 0RF insulin glargine-yfgn 100 unit/mL (3 mL) Insulin Pen 15 unit subcut QHS 30 Days Qty: 4.5 0RF Rx Instructions: Please provide enough for 1 month supply. insulin lispro [Humalog KwikPen Insulin] 100 unit/mL Insulin Pen See Protocol subcut ACHS Qty: 15 0RF Protocol: 4. Sliding Scale Insulin High-Med Dosing Condition: 150-199 mg/dl = 2 units Condition: 200-259 mg/dl = 4 units Condition: 260-324 mg/dl = 6 units Condition: 325-374 mg/dl = 8 units Condition: 375-409 mg/dl = 10 units Condition: 410-449 mg/dl = 11 units Condition: Greater than 449 call physician Protocol Text: Suggested for: - Patients on Total Daily Insulin Dose of 56-80 units - Patient who are known to be insulin resistant or septic HIGH MEDIUM DOSING ALGORITHM Rx Instructions: Please provide enough for 1 month supply. spironolactone 25 mg tablet 12.5 mg PO DAILY 30 Days Qty: 15 0RF Rx Instructions: Hold for SBP < 110 rosuvastatin [Crestor] 20 mg tablet 20 mg PO DAILY 30 Days Qty: 30 0RF cholecalciferol (vitamin D3) [Vitamin D3] 10 mcg (400 unit) capsule 10 mcg PO DAILY 30 Days Qty: 30 0RF clopidogrel [Plavix] 75 mg tablet 75 mg PO DAILY 30 Days Qty: 30 0RF Continued (DME) OneTouch Ultra Test Strip See Rx Instructions .Route Qty: 100 12RF Rx Instructions: As directed (DME) lancets [E-Z Ject Lancets] 30 gauge misc See Rx Instructions .Route Qty: 100 3RF Rx Instructions: As directed digoxin 125 mcg (0.125 mg) tablet 125 mcg PO DAILY Qty: 30 12RF glimepiride 4 mg tablet 4 mg PO QAM Qty: 30 12RF Rx Instructions: administer with breakfast losartan 50 mg tablet 50 mg PO DAILY Qty: 30 12RF metformin 850 mg tablet 850 mg PO BID Qty: 60 12RF metoprolol succinate 100 mg tablet extended release 24 hr 100 mg PO DAILY Qty: 30 12RF nitroglycerin 0.4 mg tablet, sublingual 0.4 mg SUBLINGUAL Q5-15M PRN (Reason: chest pain) Qty: 30 12RF Rx Instructions: until response; do not exceed 3 doses per episode omeprazole 40 mg capsule,delayed release(DR/EC) 40 mg PO DAILY PRN (Reason: GERD) Qty: 30 12RF Ozempic 0.25 mg or 0.5 mg (2 mg/3 mL) pen injector 0.5 mg subcut QWEEK Qty: 3 6RF Changed furosemide 20 mg tablet 20 mg PO DAILY Qty: 30 12RF Referrals / Follow Up: Stepan Ventura MD [Med Staff - Courtesy Staff] - (Please follow-up to establish with Endocrinology, may see EXERCISE RIDER.) Naima Garcia NP, EXERCISE RIDER-C [Primary Care Provider] - (Follow-up within 3-5 days to review admission. Repeat BP check given new medications. Repeat basic metabolic panel at follow-up.) Jojo Parker, PA [Med Staff - Adv Practice Prof] - (Please follow- upin 1-2 weeks for re-evaluation following recent PCI admission.) Disposition Disposition (needs filled in before D/C Order can be placed): Home, Self Care 04/03/25 07<Electronically signed by Amaris Gomez MD>Amaris Gomez MD CC: EXERCISE RIDER-C Naima Garcia; Dr. Franko Cueto DO; Dr. Mino Zhang MD ~ Signed [facility] Work Phone: [phone]) [phone] Discharge summary [facility] Medical Records Department [address] [place] [address] Instructions for Home/Discharge Instructions 04/03/25718 MR#: [id number] Acct: [id number] Name: EAMON HUSTON Rep #:[id number] : 1960 64 From: Amaris Gomez MD PCP: ANGEL CastellanosC Status:ADM IN Discharge Instructions Diet Discharge Diet: Low fat / Low cholesterol and 1800 Calorie Control Diet DC O2, CPAP, BIPAP needs Home O2 Discharge instructions: No Dressing / Incision Discharge Activity: - (See detailed instructions on plan sheet.) May resume sexual activity in: - (Defer until re-evaluation per Cardiology at follow-up.) Weight Bearing Status: Weight bearing as tolerated Dressing / Incision Call your doctor if your incision/area has: Continuous Slow Oozing, Sudden Increased Bleeding, Increased Pain/ Swelling, Increased Redness, Foul Smelling Discharge and Swelling at the incision site Call your doctor if you observe: Fever of 101 or Higher, Shortness of breath, Dizziness, Swelling in the ankles, Chest pain, Increased palpitations (irregularheartbeat), Calf discomfort and Uncontrolled pain Follow Up Care Test Results: Test results from this visit will be discussed in further detail at your follow- up appointment, if applicable. Discharge Plan Admission Admit Date/Time: 04/02/25 00:02 Primary Reason for Your Visit: NSTEMI w/ CAD w/ stenoses requiring PCI intervention, HFrEF Exacerbation Attending Provider: Amaris Gomez Primary Care Provider: Naima Garcia NP Consulting Providers: Franko Cueto; Mino Zhang Instructions Patient Instructions: Heart Failure Meds, Heart Failure Flare Up Signs, Coping with Heart Failure, Heart Failure Dc, PCI Blood Thinners, PCI Follow Up, PCI Lifestyle Changes Additional Instructions / Restrictions: ADDITIONAL DISCHARGE INSTRUCTIONS/FOLLOW-UP: Acute NSTEMI (heart attack) w/ CAD s/p prior PCI history requiring PCI intervention during admission with Acute on Chronic Mild HFrEF Exacerbation: --Cardiac troponin enzyme trend series elevated but trended downward 152 > 142 >127 > 132. --ED presentation EKG with sinus tachycardia with frequent PAC/PVC with nonspecific interventricular block and T wave abnormalities. --NT-proBNP 1180. --ED Chest x-ray showed cardiomegaly with vascular congestion. --FLP with triglyceride 316, total cholesterol 220, LDL 125, VLDL 63, HDL 32 --04/02/25 ECHO w/ Severe global LV systolic dysfunction, LVEF 25%, focal and global wall motion abnormality, evidence diastolic dysfunction, moderate pulmonary hypertension, severely dilated LV with most recent records prior to this from clinic seeing with an echocardiogram in 2017 with EF 35% at that time. --04/02/25 Cardiac catheterization with significantly stenosed circumflex with MORGAN/PCI performed with also stenosis in the LAD; however, not able to perform PCI secondary to radial approach with plan for medical management. --Per cardiology direction you have been initiated on continue baby aspirin, Plavix Zetia, mid doseCrestor which although it is a statin therapy can often have less side effects than others with preference for at least a trial per cardiology, low-dose spironolactone in addition to continued home dosing of metoprolol and losartan. Given the addition of spironolactone please have follow-up blood pressure check with primary care physician and if your systolic blood pressure is less than 110 preferentially hold temporarily the spironolactone until follow-up with cardiology but please notify their office ofthese results when it occurs. --Please have repeat basic metabolic panel at follow-up with your primary care physician. --Please perform daily weight checks using the same machine and if your weight increases by > 5 lbs please notify your cardiology office immediately to review possible diuretic change options. Diabetes mellitus type II, poorly controlled with hyperglycemia: --During the admission you had notably elevated blood sugars with poorly controlled underlying diabetes with recent hemoglobin A1c noted to be 11.7%. Atthis time during admission you had significantly elevated blood sugars thereforewe recommend you continue the oral diabetic regimen but at the sametime given the levels and your presentation with worsening coronary disease requiring percutaneous intervention you have been initiated on once daily long-acting in addition to recommended insulin sliding scale. We strongly encourage continued diet and lifestyle changes in addition to these medication changes. We have referred you also to endocrinology. CARDIOLOGY PCI POST-CATHETERIZATION INSTRUCTIONS: Lifting: Must be less than 5 lbs for 5 days, No restrictions after 14 days Shower: Yes Climb stairs: Yes Bathing in tub or submerged water: No, until cleared per Cardiology at follow- up(call office if anyconcerns [phone] and may leave voicemail if after hours). Walkin minutes 3 times daily, increase as tolerated. Driving: Resume in 7 days Sexual activity: Resume in 14 days Regular activity: Resume 14 days ADDITIONAL: --Your vitamin D level was low end normal range. We have started you on a daily oral vitamin D supplement. Please have repeat levels outpatient. Discharge Orders/Prescriptions Prescriptions: New aspirin 81 mg Tablet,Chewable 81 mg PO BREAKFAST 30 Days Qty: 30 0RF ezetimibe 10 mg Tablet 10 mg PO DAILY 30 Days Qty: 30 0RF insulin glargine-yfgn 100 unit/mL (3 mL) Insulin Pen 15 unit subcut QHS 30 Days Qty: 4.5 0RF Rx Instructions: Please provide enough for 1 month supply. insulin lispro [Humalog KwikPen Insulin] 100 unit/mL Insulin Pen See Protocol subcut ACHS Qty: 15 0RF Protocol: 4. Sliding Scale Insulin High-Med Dosing Condition: 150-199 mg/dl = 2 units Condition: 200-259 mg/dl = 4 units Condition: 260-324 mg/dl = 6 units Condition: 325-374 mg/dl = 8 units Condition: 375-409 mg/dl = 10 units Condition: 410-449 mg/dl = 11 units Condition: Greater than 449 call physician Protocol Text: Suggested for: - Patients on Total Daily Insulin Dose of 56-80 units - Patient who are known to be insulin resistant or septic HIGH MEDIUM DOSING ALGORITHM Rx Instructions: Please provide enough for 1 month supply. spironolactone 25 mg tablet 12.5 mg PO DAILY 30 Days Qty: 15 0RF Rx Instructions: Hold for SBP < 110 rosuvastatin [Crestor] 20 mg tablet 20 mg PO DAILY 30 Days Qty: 30 0RF cholecalciferol (vitamin D3) [Vitamin D3] 10 mcg (400 unit) capsule 10 mcg PO DAILY 30 Days Qty: 30 0RF clopidogrel [Plavix] 75 mg tablet 75 mg PO DAILY 30 Days Qty: 30 0RF Continued (DME) OneTouch Ultra Test Strip See Rx Instructions .Route Qty: 100 12RF Rx Instructions: As directed (DME) lancets [E-Z Ject Lancets] 30 gauge misc See Rx Instructions .Route Qty: 100 3RF Rx Instructions: As directed digoxin 125 mcg (0.125 mg) tablet 125 mcg PO DAILY Qty: 30 12RF glimepiride 4 mg tablet 4 mg PO QAM Qty: 30 12RF Rx Instructions: administer with breakfast losartan 50 mg tablet 50 mg PO DAILY Qty: 30 12RF metformin 850 mg tablet 850 mg PO BID Qty: 60 12RF metoprolol succinate 100 mg tablet extended release 24 hr 100 mg PO DAILY Qty: 30 12RF nitroglycerin 0.4 mg tablet, sublingual 0.4 mg SUBLINGUAL Q5-15M PRN (Reason: chest pain) Qty: 30 12RF Rx Instructions: until response; do not exceed 3 doses per episode omeprazole 40 mg capsule,delayed release(DR/EC) 40 mg PO DAILY PRN (Reason: GERD) Qty: 30 12RF Ozempic 0.25 mg or 0.5 mg (2 mg/3 mL) pen injector 0.5 mg subcut QWEEK Qty: 3 6RF Changed furosemide 20 mg tablet 20 mg PO DAILY Qty: 30 12RF Referrals / Follow Up: Stepan Ventura MD [Med Staff - Courtesy Staff] - (Please follow-up to establish with Endocrinologyamairani NP.) Naima Garcia EXERCISE RIDER, EXERCISE RIDER-C [Primary Care Provider] - (Follow-up within 3-5 days to review admission. Repeat BP check given new medications. Repeat basic metabolic panel at follow-up.) Jojo Parker PA [Med Staff - Adv Practice Prof] - (Please follow- upin 1-2 weeks for re-evaluation following recent PCI admission.) Disposition Disposition (needs filled in before D/C Order can be placed): Home, Self Care 04/03/25 0720Amaris Gomez MD CC: EXERCISE RIDER-C Naima Garcia; Dr. Franko Cueto DO; Dr. Mino Zhang MD ~ Signed [facility]07-11-2025 [facility] Medical Records Department [address] [place] [address] Discharge Summary 04/03/25 07 MR#: [id number] Acct: [id number] Name: EAMON HUSTON Rep #: [id number] : 1960 64 From: Amaris Gomez MD PCP: ESTEBAN Castellanos Status:DIS IN Location: [facility] [id number] Providers Date of Admission: 04/02/25 Date of Discharge: 04/03/25 Primary Care Physician: ESTEBAN Castellanos Consultations 04/02/25 03:30 Consult: Cardiology Routine Consulting Provider: Mino Zhang Reason for Consult: NSTEMI, eval for [facility] Consult: No MD Notified: Yes Date Notified: 04/02/25 Time Notified: : Method of Notification: Text Reason For Visit: NSTEMI Diagnosis Discharge Diagnosis (1) Acute non-ST elevation myocardial infarction (NSTEMI): Status: Acute Code(s): I21.4 - Non-ST elevation (NSTEMI) myocardial infarction Plan: DISCHARGE DIAGNOSES: #1. Acute chest discomfort and dyspnea secondary to acute NSTEMI w/ CAD s/p prior PCI history with Acute on Chronic Mild HFrEF Exacerbation with DURING ADMISSION PCI to the left circumflex and IFR to the LAD #2. PAF/Flutter status post pacemaker/defibrillator placement #3. Hypertension #4. Hyperlipidemia #5. Diabetes mellitus type II, poorly controlled with hyperglycemia #6. Obesity #7. GERD Medications at Discharge Home Medications blood sugar diagnostic (AgentPiggyTouch Ultra Test strips) #100 ea 12/21/23 lancets 30 gauge (E-Z Ject Lancets) #100 ea 12/21/23 digoxin 125 mcg (0.125 mg) tablet 125 mcg PO DAILY heart #30 tabs 03/20/25 glimepiride 4 mg tablet 4 mg PO QAM diabetes #30 tabs 03/20/25 losartan 50 mg tablet 50 mg PO DAILY bp #30 tabs 03/20/25 metformin 850 mg tablet 850 mg PO BID diabetes #60 tabs 03/20/25 metoprolol succinate 100 mg tablet,extended release 24 hr 100 mg PO DAILY heart #30 tabs 03/20/25 nitroglycerin 0.4 mg sublingual tablet 0.4 mg sublingual Q5-15M PRN chest pain #30 tabs 03/20/25 omeprazole 40 mg capsule,delayed release 40 mg PO DAILY PRN GERD #30 caps 03/20/25 semaglutide 0.25 mg or 0.5 mg (2 mg/3 mL) subcutaneous pen injector (Ozempic) 0.5 mg (0.736 mL) subcut QWEEK diabetes #3 mL 03/20/25 aspirin 81 mg chewable tablet 81 mg PO BREAKFAST 30 days #30 tabs 04/02/25 cholecalciferol (vitamin D3) 10 mcg (400 unit) capsule (Vitamin D3) 10 mcg PO DAILY 30 days #30 caps 04/02/25 clopidogrel 75 mg tablet (Plavix) 75 mg PO DAILY 30 days #30 tabs 04/02/25 ezetimibe 10 mg tablet 10 mg PO DAILY 30 days #30 tabs 04/02/25 furosemide 20 mg tablet 20 mg PO DAILY Swelling #30 tabs 04/02/25 insulin glargine-yfgn 100 unit/mL (3 mL) subcutaneous pen 15 unit (0.15 mL) subcut QHS 30 days #4.5 mL 04/02/25 insulin lispro 100 unit/mL subcutaneous pen (Humalog KwikPen (U-100) Insulin) See Protocol subcut ACHS #15 mL 04/02/25 rosuvastatin 20 mg tablet (Crestor) 20 mg PO DAILY 30 days #30 tabs 04/02/25 spironolactone 25 mg tablet 12.5 mg (1/2 x 25 mg) PO DAILY 30 days #15 tabs 04/02/25 Hospital Course Operations None Procedures 2-D Echocardiogram, Cardiac catheterization and EKG Summary of Care Provided Hospital Course: The patient is a 64 y/o F w/ PMHx: GERD, PAF/Flutter, Obesity, CAD s/p PCI, HTN, HLD, HFrEF, Diabetes mellitus type II poorly controlled who presented to the [facility] ED on 04/01/2025 with history of chest pain/discomfort in addition to dyspnea prompting eventual ED evaluation. Patient was admitted to PCU, status post previous AICD/pacemaker placement with interrogation requested per cardiology, cardiac troponin enzyme trend series elevated but trended downward 152 > 142 > 127 > 132, presentation EKG with sinus tachycardia with frequent PAC/PVC with nonspecific interventricular block and T wave abnormalities, NT-proBNP 1180. Chest x-ray showed cardiomegaly with vascular congestion. Most recently prior ECHO 2017 per [facility] records showed EF 35% w/ repeat 04/02/25 ECHO w/ severe global LV systolic dysfunction, LVEF 25%, focal on global wall motion abnormalities, evidence of ICD/pacer leads, diastolic dysfunction evident, moderate pulmonary hypertension, severely dilated LV. FLP with triglyceride 316, total cholesterol 220, LDL 125, VLDL 63, HDL 32 with Zetia 10 mg initiated. Per discussion with cardiology if cardiac catheterization is concerning and requires intervention patient may need to be initiated on statin therapy of alternate type and potentially even Repatha outpatient at cardiology follow-up. Maintained on heparin drip until cardiac catheterization. Maintained initially on aspirin, metoprolol, losartan. 04/02/25 Zetia added. Given appearance upon presentation patient only bolused x 1 with Lasix 40 mg x 1 in the ED and then transition to home Lasix 20 mg daily dosing. 04/02/25 cardiac catheterization with PCI to the left circumflex and IFR to the LAD. Following patient is maintained (more content not included)...[facility]07-10-2025 Radiology Diagnostic study note [facility] Imaging Services [address] [place], [place] [address] Chest 1 View (Portable) MR#: [id number] Acct: [id number] Name: EAMON HUSTON Rep #: [id number] : 1960 F 64 From: Go Sims MD PCP: ESTEBAN Castellanos Status: ADM IN Study:Chest 1 View (Portable) Date of Exam: 04/02/25 Exam# [id number] Ordering Dr: John Edwards MD PROCEDURE: CHEST 1 VIEW (PORTABLE) 04/02/2025 REASON FOR EXAM: Shortness of breath TECHNIQUE: Frontal view of the chest. COMPARISON: Chest x-ray of 03/20/2020 RAD/Chest 1 View (Portable) IMPRESSION: Left thoracic transvenous pacemaker with leads appears unchanged. The cardiomediastinal silhouette is stable, without evidence of cardiomegaly. Lungs are hypoinflated, but no acute pneumonic process is clearly identified. No pleural effusion or pneumothorax is seen. No acute osseous process is evident. Reading Location: [address] CC: EXERCISE RIDER-C Naima Garcia; Dr. Kalen Edwards MD ~ Php Mysql Web Developer: Signed [facility]07-10-2025 Progress note Author Amaris Gomez [facility] Note Date/Time April 02, 2025 12:0 3pm [facility] Medical Records Department [address] [facility] [place] [address] Progress Note - Hospitalist 04/02/25704 MR#: [id number] Acct: [id number] Name: EAMON HUSTON Rep #:[id number] : 1960 64 From: Amaris Gomez MD PCP: ESTEBAN Castellanos Status:ADM IN Location: [place] [address] Reason for Visit Reason for Visit: Diagnoses Non-ST elevation (NSTEMI) myocardial infarction (04/02/25) Subjective Subjective Patient with no acute events overnight per self and per nursing report. Patientis upright seated in a PCU chair and notes that her chest pain is completely resolved. She has had a couple bouts of short bursts of VT but is asymptomatic. She denies any dyspnea sensation. Patient has also been evaluated by cardiology and notes that plan of care is for cardiac catheterization. Also given her history discussed plan to add Zetia and pending what they find on cardiac catheterization may require repeat trial of statins but a different typeas she has been unable in the past to tolerate them secondary to myalgias. Patient denies fevers, chills, nausea, emesis, abdominal pain or dyspnea. Objective Data Objective Data Vital Signs: Vital Signs Temp Pulse Resp BP Pulse Ox O2 Del Method O2 Flow Rate 97.4 F L 97 18 100/68 93 Room Air 2 04/02/25 06:38 04/02/25 06:40 04/02/25 06:38 04/02/25 06:40 04/02/25 06:38 04/02/25 06:38 04/02/25 03:37 Oxygen Flow Rate (L/min) 2 Oxygen Delivery Method Room Air Weight: 196 lb 10.437 oz Body Mass Index (BMI) 31.7 Intake & Output: Intake and Output for Last 24 Hours 03/31/25 04/01/25 04/02/25 23:59 23:59 23:59 Intake Total 1000 / 1000 Balance 1000 / 1000 Lab / Micro Data 04/02/25 06:16 04/02/25 06:16 Labs: Laboratory Results - last 24 hr 04/01/25 20:14: WBC 10.0, RBC 4.99, Hgb 15.3 H, Hct 46.6, MCV 93.4, MCH 30.7, MCHC 32.8, RDW Std Deviation 48.3 H, RDW Coeff of Cally 14.2, Plt Count 242, MPV 12.9 H, Immature Gran % (Auto) 0.200, Neut % (Auto) 40.6 L, Lymph % (Auto) 47.8 H, Crosby % (Auto) 9.2, Eos % (Auto) 1.3, Baso % (Auto) 0.9, Absolute Neuts (auto)4.1, Absolute Lymphs (auto) 4.77 H, Nucleated RBC % 0, PT 12.7, INR 0.9, APTT 26.7, D-Dimer Quant (PE/DVT) 0.37, Sodium 134, Potassium 4.3, Chloride 100, Carbon Dioxide 19.2 L, Anion Gap 15, BUN 13, Creatinine 0.67 L, Estim Creat ClearCalc 100.16, Est GFR (MDRD) Non-Af 99, BUN/Creatinine Ratio 19.3, Glucose 337 H,Calcium 9.8, Total Bilirubin 0.57, Direct Bilirubin 0.27, AST 85 H, ALT 83 H, Alkaline Phosphatase 144 H, Troponin T High Sens 142 H* D, Total Protein 7.1, Albumin 4.1, Globulin 3.0, Lipase 26, Digoxin 0.76 04/01/25 22:26: Troponin T Hi Sens 2 Hr 127 H*, NT pro BNP II 1180 H 04/02/25 00:31: Troponin T Hi Sens 4Hr 132 H* 04/02/25 03:40: POC Glucose 391 H 04/02/25 06:33: POC Glucose 249 H ABG Data ABG results: ABG 04/01/25 23:05 Specimen Type LAYO Sample Site Not entered O2 % 2.0 VBG pH 7.39 VBG pO2 39 VBG HCO3 24 VBG Total CO2 25 VBG O2 Sat (Calc) 73 H VBG Base Excess -1 POC Mix VBG pCO2 Pt Tmp 39.8 L O2 Delivery Device Cannula Radiography Diagnostic Testing: Radiology Impression Chest X-Ray 04/01/25 20:21 IMPRESSION: Cardiomegaly with pulmonary edema. No sizable pleural effusion. Reading Location: [facility] Rhythm Strip Rhythm Strip: Sinus Tach Rate: 125 Ectopy: PVC(s) Physical Exam Narrative Physical Examination: General: Awake, alert, oriented x 3 and cooperative, seated upright in PCU bedside chair, no acute complaint, denies any current chest pain. Skin: Normal color, normal turgor, no icterus, no cyanosis except occasional stage ecchymoses. HEENT: AT/NC, EOMI, PERRLA, MMM. Lungs: CTA bilaterally, moderate effort, mild decrease BL bases, no rales, ronchi or wheezing. Heart: Regular rate and rhythm; no gallop, rub audible. Abdomen: Soft, obese, NTTP, ND, normal BS. Extremities: No cyanosis, no clubbing, mild trace distal edema. Neurological: Patient awake, alert, oriented as noted, cognitive function intact; pupils equally reactive to light and accommodation, cranial nerves grossly normal, moving all 4 extremities, no focal deficits, strength improved, intact. Psychiatric: Affect appears normal, no acute evidence of depressive or anxiety feelings. Assessment & Plan Assessment/Plan (1) Acute non-ST elevation myocardial infarction (NSTEMI): PLAN: Plan The patient is a 64 y/o F w/ PMHx: GERD, PAF/Flutter, Obesity, CAD s/p PCI, HTN,HLD, HFrEF, Diabetes mellitus type II poorly controlled who presents to the [facility] ED on 04/01/2025 with history of chest pain/discomfort in addition to dyspnea prompting eventual ED evaluation. #1. Acute chest discomfort and dyspnea secondary to acute NSTEMI w/ CAD s/p prior PCI history with Acute on Chronic Mild HFrEF Exacerbation: Admitted to PCU, status post previous AICD/pacemaker placement with interrogation requested per cardiology, cardiac troponin enzyme trend series elevated but trended downward 152 > 142 > 127 > 132, presentation EKG with sinus tachycardia with frequent PAC/PVC with nonspecific interventricular block and T wave abnormalities, NT-proBNP 1180. Chest x-ray showed cardiomegaly with vascular congestion. Most recently prior ECHO 2016 per [facility] records showed EF 35% w/repeat 04/02/25 ECHO w/ severe global LV systolic dysfunction, LVEF 25%, focal onglobal wall motion abnormalities, evidence of ICD/pacer leads, diastolic dysfunction evident, moderate pulmonary hypertension, severely dilated LV. FLP with triglyceride 316, total cholesterol 220, LDL 125, VLDL 63, HDL 32 with Zetia 10 mg initiated. Per discussion with cardiology if cardiac catheterization is concerning and requires intervention patient may need to be initiated on statin therapy of alternate type and potentially even Repatha outpatient at cardiology follow-up. Patient maintained on heparin drip, will continue aspirin, metoprolol, losartan in addition to Zetia added as noted. Given appearance upon presentation patient only bolused x 1 with Lasix 40 mg x 1in the ED and then transition to home Lasix 20 mg daily dosing. Awaiting cardiac catheterization results for further planning. If cardiac cath is unremarkable income tax administrator did note that given her current improvement she would be appropriate for potential discharge to home with follow-up outpatient. #2. PAF/Flutter: Status post pacemaker/defibrillator placement, maintained on heparin drip given acute presentation as noted #1, continued on metoprolol, digoxin. #3. Hypertension: Continue home regimen including metoprolol, losartan, recently reinitiated oral Lasix as noted above, PRN hydralazine. #4. Hyperlipidemia: FLP with triglyceride 316, total cholesterol 220, LDL 125, VLDL 63, HDL 32 with Zetia 10 mg initiated. Per discussion with cardiology if cardiac catheterization is concerning and requires intervention patient may needto be initiated on statin therapy of alternate type and potentially even Repathaoutpatient at cardiology follow-up. #5. Diabetes mellitus type II, poorly controlled with hyperglycemia: Admission glucose 337. Following cardiac catheterization will allow ADA diet, accu checksw/ ISS, most recently 03/18 HgBA1c 11.7%, upon admission placed on Lantus 15 unitdaily as well as insulin sliding scale with adjustments as needed. #6. Obesity: Weight loss and lifestyle changes encouraged. #7. GERD: Will continue patient on PPI. #8. DVT prophylaxis: Will maintain on heparin drip pending cardiology catheterization. #9. Code status: Full Code. Charges/Coding Visit Charges Inpatient E&M: 28240 Subs Hosp L3 04/02/25 1203 <Electronically signed by Amaris Gomez MD> Iraer Signature (if applicable): CC: ~ Signed [facility] Work Phone: 1(123) 784-734607-10-2025 Procedure [facility] [address] [place] [address] Pacemaker Check Date of Service: 04/02/25 1342 MR#: [id number] Acct: [id number] Name: EAMON HUSTON Rep #: [id number] : 1960 From: Raven johnson Age/Sex: 64/F [place] [facility] [place] Status: Signed Billing Codes ICD Device Billin ICD Dev Prog Eval, Multi Assessment and Plan Assessment and Plan (1) Biventricular automatic implantable cardioverter defibrillator in situ: Status: Acute 04/02/25 1353 > Date _ Raven Miller Signature: Date (if applicable) CC: ~ [facility]07-10-2025 Study report [facility] Cardiac Rehab [address] [place] [address] CR: Phase I Education Summary MR#: [id number] Acct: [id number] Name: EAMON HUSTON Rep #:[id number] : 1960 64 From: Kassandra govea PCP: ESTEBAN Castellanos DOS: 04/02 General Education Discussed with Patient CAD and cardiac anatomy and function:: Patient communicates acknowledgment Explanation of diagnoses and procedures:: Patient communicates acknowledgment Sign/Symptoms of [place]:: Patient communicates acknowledgment Antiplatelet therapy: Patient communicates acknowledgment Proper use of NTG-SL: Patient communicates acknowledgment Emergency procedures and activation of EMS: Patient communicates acknowledgment Compliance of all prescribed medications: Patient communicates acknowledgment Smoking Risk Factors Patient Nicotine/Smoking Risk Factors Are:: Non-smoker Recommendations Recommendations Include:: Second-hand smoke recommendation Response Code Nicotine/Smoking Response Code:: Patient communicates acknowledgment Dyslipidemia Recommendations Recommendations Include:: Lipid profile not available Response Code Dyslipidemia Response Code:: Patient communicates acknowledgment Overweight/Obesity Risk Factors Patient Overweight/Obesity Risk Factors Are:: Obesity - > or = 30 Recommendations Recommendations Include:: Weight loss of 5-10%, Reduced calorie diet and Exercise 5-7 times/week Response Code Overweight/Obesity:: Patient communicates acknowledgment Hypertension Recommendations Recommendations Include:: BP <130/80 if diabetic Response Code Hypertension:: Patient communicates acknowledgment Heart Disease Risk Factors Patient Heart Disease Risk Factors Are:: Previous cardiac event Recommendations Recommendations Include:: Educated family members of their risk Response Code Heart Disease Response Code:: Patient communicates acknowledgment Diabetes Recommendations Recommendations Include:: Maintain fasting blood sugars 70-110 md/dL, Maintain HgbA1c of 6% or lessand Decrease/maintain body weight Response Code Diabetes:: Patient communicates acknowledgment Metabolic Syndrome Recommendations Recommendations Include:: Does not meet criteria Sedentary Risk Factors Patient Sedentary Risk Factors Are:: Lack of regular exercise Recommendations Recommendations Include:: Benefits of regular exercise and Monitored Outpatient Cardiac Rehab Response Code Sedentary Response Code:: Patient communicates acknowledgment Stress Recommendations Recommendations Include:: Identification of stressors, and assessment of coping skills and Stress management techniques Response Code Stress Response Code:: Patient communicates acknowledgment 04/02/25 1351 Date Kassandra Mccormack Outcome assessment reviewed. Exercise plan approved as documented. Treatment plan and goals support patient needs/abilities. Continue with current plan. I certify the patient demonstrates improvement and remains willing and capable of participation. the patient continues to benefit from cardiac rehab services/training. The patient may continue at current intensity, endurance andmodality and progress per protocol. Cosigner Signature: Date CC: ~ Signed [facility]07-10-2025 Consult note Author Kalen Edwards [facility] Note Date/Time April 02, 2025 11:3 0am [facility] Medical Records Department [address] [place] [address] Consultation - Cardiology 04/02/25 0844 MR#: [id number] Acct: [id number] Name: EAMON HUSTON Rep #:[id number] : 1960 64 From: Kalen Edwards MD PCP: ESTEBAN Castellanos Status:ADM IN Location: [place] [address] Assessment & Plan Assessment/Plan (1) Acute non-ST elevation myocardial infarction (NSTEMI): PLAN: Continue with IV heparin Continue with aspirin Keep NPO for left heart catheterization later on today (2) Congestive heart failure: PLAN: Acute on chronic HFrEF 25% Continue with metoprolol succinate 100 mg daily Continue with losartan 50 mg daily Start Spironolactone 12.5 mg daily Start IV Lasix 20 mg daily (3) CAD (coronary artery disease): QUALIFIERS: Coronary Disease-Associated Artery/Lesion type: due tolipid rich plaque Qualified Code(s): I25.10 - Atherosclerotic heart disease of [place] coronary artery without angina pectoris; I25.83 - Coronary atherosclerosis due to lipid rich plaque PLAN: Continue with aspirin Start zeita and will need to be on PSCK9i as an outpatient Check Vitamin D if needed will start her on crestor as inpatient if she is needing PCI HPI Consult Data Date of Consult: 04/02/25 HPI Narrative Reason for Consultation: Chest pain HPI Narrative: EAMON HUSTON with PMH of remote CAD status post MORGAN to LAD in 2010 at [facility], hypertension, paroxysmal atrial fibrillation not on AC on digoixn and HFrEF status post BIV [facility] implanted in 2012 presented with chest pain worse on exertion associated with shortness of breath found to have elevated troponin at 153. She had recent cold symptoms. She denies any history of stroke, fever, nausea, vomiting, bleeding. she denies any palpitations. she had history of severe myalgia when she had statin. [facility] Medical History ESBL (extended spectrum beta-lactamase) producing bacteria infection Neuropathy Myocardial infarct GERD (gastroesophageal reflux disease) Diabetes type 2, uncontrolled Hypertension Pacemaker Cardiac defibrillator in place Home Medications ?Medication ?Instructions ?Recorded ?Last Taken ?Type blood sugar diagnostic (OneTouch #100 ea 12/21/23 Unkn own Rx Ultra Test strips) lancets 30 gauge (E-Z Ject Lancets) #100 ea 12/21/23 U nknown Rx digoxin 125 mcg (0.125 mg) tablet 125 mcg PO DAILY hea rt #30 tabs 03/20/25 04/01/25 09:00 Rx furosemide 20 mg tablet 20 mg PO DAILY PRN Swelling #30 03/20/25 Unknown Rx tabs glimepiride 4 mg tablet 4 mg PO QAM diabetes #30 tab s 03/20/25 Unknown Rx losartan 50 mg tablet 50 mg PO DAILY bp #30 tabs 0 03/20/25 04/01/25 09:00 Rx metformin 850 mg tablet 850 mg PO BID diabetes #60 t abs 03/20/25 04/01/25 09:00 Rx 850 mg metoprolol succinate 100 mg 100 mg PO DAILY heart #30 tabs 03/20/25 04/01/25 09:00 Rx tablet,extended release 24 hr nitroglycerin 0.4 mg sublingual 0.4 mg sublingual Q5-1 5M PRN chest 03/20/25 Unknown Rx tablet pain #30 tabs omeprazole 40 mg capsule,delayed 40 mg PO DAILY PRN GE RD #30 caps 03/20/25 04/01/25 09:00 Rx release semaglutide 0.25 mg or 0.5 mg (2 0.5 mg (0.736 mL) sub cut QWEEK 03/20/25 04/01/25 09:00 Rx mg/3 mL) subcutaneous pen injector diabetes #3 mL 0.5 mg (Ozempic) Allergy/AdvReac Type Severity Reaction Status Date / Time sitagliptin (From Sep) Allergy Severe Rash Verified 04/01/25 20:10 Yubhsdn-KRB-VgE Reductase Allergy Intermediate cramps Verified 04/01/25 20:10 Inhibitor (Skzdwdd-Ovr-Cci Reductase Inhibitor) dapagliflozin (From [facility]) AdvReac Severe yeast Verified 04/01/25 20:10 Family History Sister Breast cancer Diabetes Thyroid disorder Mother CVA (cerebral vascular accident) Diabetes Heart disease Myocardial infarction Father Heart disease Myocardial infarction Other CAD (coronary artery disease) Surgical History H/O tubal ligation H/O heart artery stent Social History Smoking Status: Never smoker ROS Constitutional Constitutional: Reports systems reviewed and no addt'l complaints, except as documented and as per HPI Eyes Eyes: Reports systems reviewed and no addt'l complaints, except as documented ENT HEENT: Reports systems reviewed and no addt'l complaints, except as documented Cardiovascular Cardiovascular: Reports chest pain with activity, dyspnea on exertion, easily tiring during activity, orthopnea, pedal edema and rapid heart rate; Denies arrhythmia on telemetry, chest pain at rest, dyspnea at rest, lightheadedness, nausea or vomiting Respiratory/Chest Respiratory/Chest: Reports systems reviewed and no addt'l complaints, except as documented Gastrointestinal Gastrointestinal: Reports systems reviewed and no addt'l complaints, except as documented Integumentary Integumentary: Reports systems reviewed and no addt'l complaints, except as documented Neurologic Neurologic: Reports systems reviewed and no addt'l complaints, except as documented Physical Exam Const alert and oriented x3 HEENT normocephalic Eyes PERRL Neck full ROM Chest inspection of chest normal Resp normal respiratory effort Cardio regular rate Jugular Venous Distention: JVD Rhythm: regular rhythm Heart Sounds: S1 normal Back/Spine no CVA tenderness Extremity General Extremity: edema Skin no rashes or lesions noted Risk Stratification Risk Stratification Applicable: Yes Age >/= 65: No >/= 3 CAD Risk Factors (HTN, HLD, DM, family hx of CAD, or current smoker): Yes Aspirin Use in the Past 7 Days: Yes Severe Angina (>/= episodes in 24 hours): Yes EKG ST Changes >/= 0.5mm: No Positive Cardiac Marker: Yes GILSON Risk Stratification Score: 4 GILSON % Risk: 20% Risk Objective Data Vital Signs: Vital Signs Temp Pulse Resp BP Pulse Ox O2 Del Method O2 Flow Rate 98.0 F 91 17 105/65 95 Room Air 2 04/02/25 08:37 04/02/25 08:37 04/02/25 08:37 04/02/25 08:37 04/02/25 08:37 04/02/25 08:37 04/02/25 03:37 Oxygen Flow Rate (L/min) 2 Oxygen Delivery Method Room Air Weight: 196 lb 10.437 oz Body Mass Index (BMI) 31.7 Intake & Output: Intake and Output for Last 24 Hours 03/31/25 04/01/25 04/02/25 23:59 23:59 23:59 Intake Total 1074.5 / 1074.5 Balance 1074.5 / 1074.5 Lab / Micro Data 04/02/25 06:16 04/02/25 06:16 Labs: Laboratory Results - last 24 hr 04/01/25 20:14: WBC 10.0, RBC 4.99, Hgb 15.3 H, Hct 46.6, MCV 93.4, MCH 30.7, MCHC 32.8, RDW Std Deviation 48.3 H, RDW Coeff of Cally 14.2, Plt Count 242, MPV 12.9 H, Immature Gran % (Auto) 0.200, Neut % (Auto) 40.6 L, Lymph % (Auto) 47.8 H, Crosby % (Auto) 9.2, Eos % (Auto) 1.3, Baso % (Auto) 0.9, Absolute Neuts (auto)4.1, Absolute Lymphs (auto) 4.77 H, Nucleated RBC % 0, PT 12.7, INR 0.9, APTT 26.7, D-Dimer Quant (PE/DVT) 0.37, Sodium 134, Potassium 4.3, Chloride 100, Carbon Dioxide 19.2 L, Anion Gap 15, BUN 13, Creatinine 0.67 L, Estim Creat ClearCalc 100.16, Est GFR (MDRD) Non-Af 99, BUN/Creatinine Ratio 19.3, Glucose 337 H,Calcium 9.8, Total Bilirubin 0.57, Direct Bilirubin 0.27, AST 85 H, ALT 83 H, Alkaline Phosphatase 144 H, Troponin T High Sens 142 H* D, Total Protein 7.1, Albumin 4.1, Globulin 3.0, Lipase 26, Digoxin 0.76 04/01/25 22:26: Troponin T Hi Sens 2 Hr 127 H*, NT pro BNP II 1180 H 04/02/25 00:31: Troponin T Hi Sens 4Hr 132 H* 04/02/25 03:40: POC Glucose 391 H 04/02/25 06:16: WBC 7.4, RBC 4.62, Hgb 13.9, Hct 42.6, MCV 92.2, MCH 30.1, MCHC 32.6, RDW Std Deviation 47.4 H, RDW Coeff of Cally 14.1, Plt Count 211, MPV 13.0 H, APTT 35.9, Sodium 137, Potassium 3.9, Chloride 103, Carbon Dioxide 21.2, AnionGap 13, BUN 12, Creatinine 0.57 L, Estim Creat Clear Calc 115.12, Est GFR (MDRD)Non-Af 103, BUN/Creatinine Ratio 21.7 H, Glucose 253 H, Calcium 9.2, Magnesium 2.0, Triglycerides 316 H, Cholesterol 220 H, LDL Cholesterol, Calc 125, VLDL Cholesterol 63 H, HDL Cholesterol 32 L, Cholesterol/HDL Ratio 6.96 04/02/25 06:33: POC Glucose 249 H ABG Data ABG results: ABG 04/01/25 23:05 Specimen Type LAYO Sample Site Not entered O2 % 2.0 VBG pH 7.39 VBG pO2 39 VBG HCO3 24 VBG Total CO2 25 VBG O2 Sat (Calc) 73 H VBG Base Excess -1 POC Mix VBG pCO2 Pt Tmp 39.8 L O2 Delivery Device Cannula Rhythm Strip Rhythm Strip: Sinus Tach Rate: 125 Ectopy: PVC(s) Cardiology Labs/Tests 04/01/25 20:14: WBC 10.0, RBC 4.99, Hgb 15.3 H, Hct 46.6, MCV 93.4, MCH 30.7, MCHC 32.8, Plt Count 242, MPV 12.9 H, Immature Gran % (Auto) 0.200, Neut % (Auto) 40.6 L, Lymph % (Auto) 47.8 H, Crosby % (Auto) 9.2, Eos % (Auto) 1.3, Baso % (Auto) 0.9, Absolute Neuts (auto) 4.1, Nucleated RBC % 0, PT 12.7, INR 0.9, APTT 26.7, D- Dimer Quant (PE/DVT) 0.37, Sodium 134, Potassium 4.3, Chloride 100,Carbon Dioxide 19.2 L, Anion Gap 15, BUN 13, Creatinine 0.67 L, Est GFR (MDRD) Non-Af 99, BUN/Creatinine Ratio 19.3, Glucose 337 H, Calcium 9.8, Total Bilirubin 0.57, Direct Bilirubin 0.27, Digoxin 0.76 04/01/25 23:05: VBG pH 7.39, VBG pO2 39, VBG HCO3 24, VBG O2 Sat (Calc) 73 H, VBG Base Excess -1 04/02/25 06:16: WBC 7.4, RBC 4.62, Hgb 13.9, Hct 42.6, MCV 92.2, MCH 30.1, MCHC 32.6, Plt Count 211, MPV 13.0 H, APTT 35.9, Sodium 137, Potassium 3.9, Chloride 103, Carbon Dioxide 21.2, Anion Gap 13, BUN 12, Creatinine 0.57 L, Est GFR (MDRD) Non-Af 103, BUN/Creatinine Ratio 21.7 H, Glucose 253 H, Calcium 9.2, Magnesium 2.0, Triglycerides 316 H, Cholesterol 220 H, VLDL Cholesterol 63 H, HDL Cholesterol 32 L, Cholesterol/HDL Ratio 6.96 Rhythm: EKG: ECHO: Stress Test: Cardiac Cath: PCI: CT Surgery: Holter monitor: EPS: PPM: CXR: Chest CT Scan: Radiography Diagnostic Testing: Radiology Impression Chest X-Ray 04/01/25 20:21 IMPRESSION: Cardiomegaly with pulmonary edema. No sizable pleural effusion. Reading Location: [id number] 04/02/25 7167 <Electronically signed by Kalen Edwards MD> Cosigner Signature (if applicable): CC: ESTEBAN Garcia~ Signed [facility] Work Phone: [phone] Progress note [facility] Medical Records Department [address] [place] [address] Progress Note - Hospitalist 04/02/25704 MR#: [id number] Acct: [id number] Name: EAMON HUSTON Rep #:[id number] : 1960 64 From: Amaris Gomez MD PCP: ANGEL CastellanosC Status:ADM IN Location: [place] [address] Reason for Visit Reason for Visit: Diagnoses Non-ST elevation (NSTEMI) myocardial infarction (04/02/25) Subjective Subjective Patient with no acute events overnight per self and per nursing report. Patientis upright seated maura PCU chair and notes that her chest pain is completely resolved. She has had a couple bouts of short bursts of VT but is asymptomatic. She denies any dyspnea sensation. Patient has also been evaluated by cardiology and notes that plan of care is for cardiac catheterization. Also given her history discussed plan to add Zetia and pending what they find on cardiac catheterization may require repeattrial of statins but a different typeas she has been unable in the past to tolerate them secondary to myalgias. Patient denies fevers, chills, nausea, emesis, abdominal pain or dyspnea. Objective Data Objective Data Vital Signs: Vital Signs Temp Pulse Resp BP Pulse Ox O2 Del Method O2 Flow Rate 97.4 F L 97 18 100/68 93 Room Air 2 04/02/25 06:38 04/02/25 06:40 04/02/25 06:38 04/02/25 06:40 04/02/25 06:38 04/02/25 06:38 04/02/25 03:37 Oxygen Flow Rate (L/min) 2 Oxygen Delivery Method Room Air Weight: 196 lb 10.437 oz Body Mass Index (BMI) 31.7 Intake & Output: Intake and Output for Last 24 Hours 03/31/25 04/01/25 04/02/25 23:59 23:59 23:59 Intake Total 1000 / 1000 Balance 1000 / 1000 Lab / Micro Data 04/02/25 06:16 04/02/25 06:16 Labs: Laboratory Results - last 24 hr 04/01/25 20:14: WBC 10.0, RBC 4.99, Hgb 15.3 H, Hct 46.6, MCV 93.4, MCH 30.7, MCHC 32.8, RDW Std Deviation 48.3 H, RDW Coeff of Cally 14.2, Plt Count 242, MPV 12.9 H, Immature Gran % (Auto) 0.200, Neut% (Auto) 40.6 L, Lymph % (Auto) 47.8 H, Crosby % (Auto) 9.2, Eos % (Auto) 1.3, Baso % (Auto) 0.9, Absolute Neuts (auto)4.1, Absolute Lymphs (auto) 4.77 H, Nucleated RBC % 0, PT 12.7, INR 0.9, APTT 26.7, D-Dimer Quant (PE/DVT) 0.37, Sodium 134, Potassium 4.3, Chloride 100, Carbon Dioxide 19.2 L, AnionGap 15, BUN 13, Creatinine 0.67 L, Estim Creat ClearCalc 100.16, Est GFR (MDRD) Non-Af 99, BUN/Creatinine Ratio 19.3, Glucose 337 H,Calcium 9.8, Total Bilirubin 0.57, Direct Bilirubin 0.27, AST 85 H,ALT 83 H, Alkaline Phosphatase 144 H, Troponin T High Sens 142 H* D, Total Protein 7.1, Albumin 4.1, Globulin 3.0, Lipase 26, Digoxin 0.76 04/01/25 22:26: Troponin T Hi Sens 2 Hr 127 H*, NT pro BNP II 1180 H 04/02/25 00:31: Troponin T Hi Sens 4Hr 132 H* 04/02/25 03:40: POC Glucose 391 H 04/02/25 06:33: POC Glucose 249 H ABG Data ABG results: ABG 04/01/25 23:05 Specimen Type LAYO Sample Site Not entered O2 % 2.0 VBG pH 7.39 VBG pO2 39 VBG HCO3 24 VBG Total CO2 25 VBG O2 Sat (Calc) 73 H VBG Base Excess -1 POC Mix VBG pCO2 Pt Tmp 39.8 L O2 Delivery Device Cannula Radiography Diagnostic Testing: Radiology Impression Chest X-Ray 04/01/25 20:21 IMPRESSION: Cardiomegaly with pulmonary edema. No sizable pleural effusion. Reading Location: [facility] Rhythm Strip Rhythm Strip: Sinus Tach Rate: 125 Ectopy: PVC(s) Physical Exam Narrative Physical Examination: General: Awake, alert, oriented x 3 and cooperative, seated upright in PCU bedside chair, no acute complaint, denies any current chest pain. Skin: Normal color, normal turgor, no icterus, no cyanosis except occasional stage ecchymoses. HEENT: AT/NC, EOMI, PERRLA, MMM. Lungs: CTA bilaterally, moderate effort, mild decrease BL bases, no rales, ronchi or wheezing. Heart: Regular rate and rhythm; no gallop, rub audible. Abdomen: Soft, obese, NTTP, ND, normal BS. Extremities: No cyanosis, no clubbing, mild trace distal edema. Neurological: Patient awake, alert, oriented as noted, cognitive function intact; pupils equally reactive to light and accommodation, cranial nerves grossly normal, moving all 4 extremities, no focaldeficits, strength improved, intact. Psychiatric: Affect appears normal, no acute evidence of depressive or anxiety feelings. Assessment & Plan Assessment/Plan (1) Acute non-ST elevation myocardial infarction (NSTEMI): PLAN: Plan The patient is a 64 y/o F w/ PMHx: GERD, PAF/Flutter, Obesity, CAD s/p PCI, HTN,HLD, HFrEF, Diabetes mellitus type II poorly controlled who presents to the [facility] ED on 04/01/2025 with history of chest pain/discomfort in addition to dyspnea prompting eventual ED evaluation. #1. Acute chest discomfort and dyspnea secondary to acute NSTEMI w/ CAD s/p prior PCI history with Acute on Chronic Mild HFrEF Exacerbation: Admitted to PCU, status post previous AICD/pacemaker placement with interrogation requested per cardiology, cardiac troponin enzyme trend series elevated but trended downward 152 > 142 > 127 > 132, presentation EKG with sinus tachycardia with frequent PAC/PVC with nonspecific interventricular block and T wave abnormalities, NT-proBNP 1180. Chest x-ray showed cardiomegaly with vascular congestion. Most recently prior ECHO 2016 per [facility] records showed EF 35% w/repeat 04/02/25 ECHO w/ severe global LV systolic dysfunction, LVEF 25%, focal onglobal wall motion abnormalities, evidence of ICD/pacer leads, diastolic dysfunction evident, moderate pulmonary hypertension, severely dilated LV. FLP with triglyceride 316, total cholesterol 220, LGP614, VLDL 63, HDL 32 with Zetia 10 mg initiated. Per discussion with cardiology if cardiac catheterization is concerning and requires intervention patient may need to be initiated on statin therapy of alternate type and potentially even Repatha outpatient at cardiology follow-up. Patient maintainedon heparin drip, will continue aspirin, metoprolol, losartan in addition to Zetia added as noted. Given appearance upon presentation patient only bolused x 1 with Lasix 40 mg x 1in the ED and then transition to home Lasix 20 mg daily dosing. Awaiting cardiac catheterization results for further planning. If cardiac cath is unremarkable income tax administrator did note that given her current improvement she would be appropriate for potential discharge to home with follow-up outpatient. #2. PAF/Flutter: Status post pacemaker/defibrillator placement, maintained on heparin drip given acute presentation as noted #1, continued on metoprolol, digoxin. #3. Hypertension: Continue home regimen including metoprolol, losartan, recently reinitiated oral Lasix as noted above, PRN hydralazine. #4. Hyperlipidemia: FLP with triglyceride 316, total cholesterol 220, LDL 125, VLDL 63, HDL 32 withZetia 10 mg initiated. Per discussion with cardiology if cardiac catheterization is concerning and requires intervention patient may needto be initiated on statin therapy of alternate type and potentially even Repathaoutpatient at cardiology follow-up. #5. Diabetes mellitus type II, poorly controlled with hyperglycemia: Admission glucose 337. Following cardiac catheterization will allow ADA diet, accu checksw/ ISS, most recently 03/18 HgBA1c 11.7%, upon admission placed on Lantus 15 unitdaily as well as insulin sliding scale with adjustments as needed. #6. Obesity: Weight loss and lifestyle changes encouraged. #7. GERD: Will continue patient on PPI. #8. DVT prophylaxis: Will maintain on heparin drip pending cardiology catheterization. #9. Code status: Full Code. Charges/Coding Visit Charges Inpatient E&M: 03023 Subs Hosp L3 04/02/25 1203 Cosigner Signature (if applicable): CC: ~ Signed [facility]07-10-2025 Consult note [facility] Medical Records Department [address] [place] [address] Consultation - Cardiology 04/02/25 0886 MR#: [id number] Acct: [id number] Name: EAMON HUSTON Rep #:[id number] : 1960 64 From: Kalen Edwards MD PCP: Naima Garcia [facility]-C Status:ADM IN Location: [place] [address] Assessment & Plan Assessment/Plan (1) Acute non-ST elevation myocardial infarction (NSTEMI): PLAN: Continue with IV heparin Continue with aspirin Keep NPO for left heart catheterization later on today (2) Congestive heart failure: PLAN: Acute on chronic HFrEF 25% Continue with metoprolol succinate 100 mg daily Continue with losartan 50 mg daily Start Spironolactone 12.5 mg daily Start IV Lasix 20 mg daily (3) CAD (coronary artery disease): QUALIFIERS: Coronary Disease-Associated Artery/Lesion type: due tolipid rich plaque Qualified Code(s): I25.10 - Atherosclerotic heart disease of [place] coronary artery without angina pectoris; I25.83- Coronary atherosclerosis due to lipid rich plaque PLAN: Continue with aspirin Start zeita and will need to be on PSCK9i as an outpatient Check Vitamin D if needed will start her on crestor as inpatient if she is needing PCI HPI Consult Data Date of Consult: 04/02/25 HPI Narrative Reason for Consultation: Chest pain HPI Narrative: EAMON HUSTON with PMH of remote CAD status post MORGAN to LAD in 2010 at [facility], hypertension, paroxysmal atrial fibrillation not on AC on digoixn and HFrEF status post BIV [facility] implanted in 2012 presented with chest pain worse on exertion associated with shortness of breath found to have elevated troponin at 153. She had recent cold symptoms. She denies any history of stroke, fever, nausea, vomiting, bleeding. she denies any palpitations. she had history of severe myalgia when she had statin. [facility] Medical History ESBL (extended spectrum beta-lactamase) producing bacteria infection Neuropathy Myocardial infarct GERD (gastroesophageal reflux disease) Diabetes type 2, uncontrolled Hypertension Pacemaker Cardiac defibrillator in place Home Medications ?Medication ?Instructions ?Recorded ?Last Taken ?Type blood sugar diagnostic (OneTouch #100 ea 12/21/23 Unkn own Rx Ultra Test strips) lancets 30 gauge (E-Z Ject Lancets) #100 ea 12/21/23 U nknown Rx digoxin 125 mcg (0.125 mg) tablet 125 mcg PO DAILY hea rt #30 tabs 03/20/25 04/01/25 09:00 Rx furosemide 20 mg tablet 20 mg PO DAILY PRN Swelling #30 03/20/25 Unknown Rx tabs glimepiride 4 mg tablet 4 mg PO QAM diabetes #30 tab s 03/20/25 Unknown Rx losartan 50 mg tablet 50 mg PO DAILY bp #30 tabs 0 03/20/25 04/01/25 09:00 Rx metformin 850 mg tablet 850 mg PO BID diabetes #60 t abs 03/20/25 04/01/25 09:00 Rx 850 mg metoprolol succinate 100 mg 100 mg PO DAILY heart #30 tabs 03/20/25 04/01/25 09:00 Rx tablet,extended release 24 hr nitroglycerin 0.4 mg sublingual 0.4 mg sublingual Q5-1 5M PRN chest 03/20/25 Unknown Rx tablet pain #30 tabs omeprazole 40 mg capsule,delayed 40 mg PO DAILY PRN GE RD #30 caps 03/20/25 04/01/25 09:00 Rx release semaglutide 0.25 mg or 0.5 mg (2 0.5 mg (0.736 mL) sub cut QWEEK 03/20/25 04/01/25 09:00 Rx mg/3 mL) subcutaneous pen injector diabetes #3 mL 0.5 mg (Ozempic) Allergy/AdvReac Type Severity Reaction Status Date / Time sitagliptin (From ) Allergy Severe Rash Verified 04/01/25 20:10 Gfzevgd-IXI-LqE Reductase Allergy Intermediate cramps Verified 04/01/25 20:10 Inhibitor (Xienwto-Lai-Xfq Reductase Inhibitor) dapagliflozin (From [facility]) AdvReac Severe yeast Verified 04/01/25 20:10 Family History Sister Breast cancer Diabetes Thyroid disorder Mother CVA (cerebral vascular accident) Diabetes Heart disease Myocardial infarction Father Heart disease Myocardial infarction Other CAD (coronary artery disease) Surgical History H/O tubal ligation H/O heart artery stent Social History Smoking Status: Never smoker ROS Constitutional Constitutional: Reports systems reviewed and no addt'l complaints, except as documented and as per HPI Eyes Eyes: Reports systems reviewed and no addt'l complaints, except as documented ENT HEENT: Reports systems reviewed and no addt'l complaints, except as documented Cardiovascular Cardiovascular: Reports chest pain with activity, dyspnea on exertion, easily tiring during activity, orthopnea, pedal edema and rapid heart rate; Denies arrhythmia on telemetry, chest pain at rest, dyspnea at rest, lightheadedness, nausea or vomiting Respiratory/Chest Respiratory/Chest: Reports systems reviewed and no addt'l complaints, except as documented Gastrointestinal Gastrointestinal: Reports systems reviewed and no addt'l complaints, except as documented Integumentary Integumentary: Reports systems reviewed and no addt'l complaints, except as documented Neurologic Neurologic: Reports systems reviewed and no addt'l complaints, except as documented Physical Exam Const alert and oriented x3 HEENT normocephalic Eyes PERRL Neck full ROM Chest inspection of chest normal Resp normal respiratory effort Cardio regular rate Jugular Venous Distention: JVD Rhythm: regular rhythm Heart Sounds: S1 normal Back/Spine no CVA tenderness Extremity General Extremity: edema Skin no rashes or lesions noted Risk Stratification Risk Stratification Applicable: Yes Age >/= 65: No >/= 3 CAD Risk Factors (HTN, HLD, DM, family hx of CAD, or current smoker): Yes Aspirin Use in the Past 7 Days: Yes Severe Angina (>/= episodes in 24 hours): Yes EKG ST Changes >/= 0.5mm: No Positive Cardiac Marker: Yes GILSON Risk Stratification Score: 4 GILSON % Risk: 20% Risk Objective Data Vital Signs: Vital Signs Temp Pulse Resp BP Pulse Ox O2 Del Method O2 Flow Rate 98.0 F 91 17 105/65 95 Room Air 2 04/02/25 08:37 04/02/25 08:37 04/02/25 08:37 04/02/25 08:37 04/02/25 08:37 04/02/25 08:37 04/02/25 03:37 Oxygen Flow Rate (L/min) 2 Oxygen Delivery Method Room Air Weight: 196 lb 10.437 oz Body Mass Index (BMI) 31.7 Intake & Output: Intake and Output for Last 24 Hours 03/31/25 04/01/25 04/02/25 23:59 23:59 23:59 Intake Total 1074.5 / 1074.5 Balance 1074.5 / 1074.5 Lab / Micro Data 04/02/25 06:16 04/02/25 06:16 Labs: Laboratory Results - last 24 hr 04/01/25 20:14: WBC 10.0, RBC 4.99, Hgb 15.3 H, Hct 46.6, MCV 93.4, MCH 30.7, MCHC 32.8, RDW Std Deviation 48.3 H, RDW Coeff of Cally 14.2, Plt Count 242, MPV 12.9 H, Immature Gran % (Auto) 0.200, Neut% (Auto) 40.6 L, Lymph % (Auto) 47.8 H, Crosby % (Auto) 9.2, Eos % (Auto) 1.3, Baso % (Auto) 0.9, Absolute Neuts (auto)4.1, Absolute Lymphs (auto) 4.77 H, Nucleated RBC % 0, PT 12.7, INR 0.9, APTT 26.7, D-Dimer Quant (PE/DVT) 0.37, Sodium 134, Potassium 4.3, Chloride 100, Carbon Dioxide 19.2 L, AnionGap 15, BUN 13, Creatinine 0.67 L, Estim Creat ClearCalc 100.16, Est GFR (MDRD) Non-Af 99, BUN/Creatinine Ratio 19.3, Glucose 337 H,Calcium 9.8, Total Bilirubin 0.57, Direct Bilirubin 0.27, AST 85 H,ALT 83 H, Alkaline Phosphatase 144 H, Troponin T High Sens 142 H* D, Total Protein 7.1, Albumin 4.1, Globulin 3.0, Lipase 26, Digoxin 0.76 04/01/25 22:26: Troponin T Hi Sens 2 Hr 127 H*, NT pro BNP II 1180 H 04/02/25 00:31: Troponin T Hi Sens 4Hr 132 H* 04/02/25 03:40: POC Glucose 391 H 04/02/25 06:16: WBC 7.4, RBC 4.62, Hgb 13.9, Hct 42.6, MCV 92.2, MCH 30.1, MCHC 32.6, RDW Std Deviation 47.4 H, RDW Coeff of Cally 14.1, Plt Count 211, MPV 13.0 H, APTT 35.9, Sodium 137, Potassium 3.9,Chloride 103, Carbon Dioxide 21.2, AnionGap 13, BUN 12, Creatinine 0.57 L, Estim Creat Clear Calc 115.12, Est GFR (MDRD)Non-Af 103, BUN/Creatinine Ratio 21.7 H, Glucose 253 H, Calcium 9.2, Magnesium 2.0, Triglycerides 316 H, Cholesterol 220 H, LDL Cholesterol, Calc 125, VLDL Cholesterol 63 H, HDL Cholesterol 32 L, Cholesterol/HDL Ratio 6.96 04/02/25 06:33: POC Glucose 249 H ABG Data ABG results: ABG 04/01/25 23:05 Specimen Type LAYO Sample Site Not entered O2 % 2.0 VBG pH 7.39 VBG pO2 39 VBG HCO3 24 VBG Total CO2 25 VBG O2 Sat (Calc) 73 H VBG Base Excess -1 POC Mix VBG pCO2 Pt Tmp 39.8 L O2 Delivery Device Cannula Rhythm Strip Rhythm Strip: Sinus Tach Rate: 125 Ectopy: PVC(s) Cardiology Labs/Tests 04/01/25 20:14: WBC 10.0, RBC 4.99, Hgb 15.3 H, Hct 46.6, MCV 93.4, MCH 30.7, MCHC 32.8, Plt Count 242, MPV 12.9 H, Immature Gran % (Auto) 0.200, Neut % (Auto) 40.6 L, Lymph % (Auto) 47.8 H, Crosby % (Auto) 9.2, Eos % (Auto) 1.3, Baso % (Auto) 0.9, Absolute Neuts (auto) 4.1, Nucleated RBC % 0, PT 12.7, INR 0.9, APTT 26.7, D-Dimer Quant (PE/DVT) 0.37, Sodium 134, Potassium 4.3, Chloride 100,Carbon Dioxide 19.2 L, Anion Gap 15, BUN 13, Creatinine 0.67 L, Est GFR (MDRD) Non-Af 99, BUN/Creatinine Ratio 19.3, Glucose 337 H, Calcium 9.8, Total Bilirubin 0.57, Direct Bilirubin 0.27, Digoxin 0.76 04/01/25 23:05: VBG pH 7.39, VBG pO2 39, VBG HCO3 24, VBG O2 Sat (Calc) 73 H, VBG Base Excess -1 04/02/25 06:16: WBC 7.4, RBC 4.62, Hgb 13.9, Hct 42.6, MCV 92.2, MCH 30.1, MCHC 32.6, Plt Count 211, MPV 13.0 H, APTT 35.9, Sodium 137, Potassium 3.9, Chloride 103, Carbon Dioxide 21.2, Anion Gap 13,BUN 12, Creatinine 0.57 L, Est GFR (MDRD) Non-Af 103, BUN/Creatinine Ratio 21.7 H, Glucose 253 H, Calcium 9.2, Magnesium 2.0, Triglycerides 316 H, Cholesterol 220 H, VLDL Cholesterol 63 H, HDL Cholest yadira 32 L, Cholesterol/HDL Ratio 6.96 Rhythm: EKG: ECHO: Stress Test: Cardiac Cath: PCI: CT Surgery: Holter monitor: EPS: PPM: CXR: Chest CT Scan: Radiography Diagnostic Testing: Radiology Impression Chest X-Ray 04/01/25 20:21 IMPRESSION: Cardiomegaly with pulmonary edema. No sizable pleural effusion. Reading Location: [facility] 04/02/25 1130 Cosigner Signature (if applicable): CC: ESTEBAN Garcia~ Signed [facility]07-10-2025 History and physical note Author Franko Cueto [facility] Note Date/Time April 02, 2025 5:06 am [facility] Medical Records Department [address] [place] [address] H&P Exam - Hospitalist 04/01/25 8526 MR#: [id number] Acct: [id number] Name: EAMON HUSTON Rep #:[id number] : 1960 64 From: Franko daley DO PCP: ESTEBAN Castellanos Status:ADM IN Location: [place] [id number] HPI - General General Date of Admission: 04/02/25 Date of Service: 04/01/25 Chief Complaint: Chest discomfort and shortness of breath HPI Narrative EAMON HUSTON, is a 64 F who presented to [facility] ED on 04/01/2025 with chest discomfort and shortness of breath. Medical history is significant for CAD with remote stenting, CHF, status post pacemaker and defibrillator placement, and poorly controlled type 2 diabetes mellitus. She saw her PCP on 03/31 and reported intermittent symptoms of chest discomfort and shortness of breath for the past 2 to 3 days. Lab work was sent and showed an elevated troponin of 153 so she was told to come to the ED for further evaluation. On arrival to the ED she was tachycardic to the 120s and mildly hypertensive, otherwise stable on room air. Per ED physician, she was pale and somewhat uncomfortable appearing. CBC and BMP were benign. Troponin trend 142 > 127 > 132. Chest x-ray showed cardiomegaly with pulmonary edema. Blood glucose 337 and last A1c 11.7% on 03/20. Patient was given a dose of nitro and had significant improvement in pain with that. Given concern for NSTEMI, hospitalist was contacted for admission. I saw the patient at bedside in the ED. Patient was sitting back fairly comfortably in bed, conversing normally, inno acute distress. Noted that her chest discomfort continues to feel improved now compared to earlier today. She does report some radiation of pain to the back over the past few days as well and this feels improved currently. Given her history and symptoms, patient was started on a heparin drip given high concern for NSTEMI. Will be admitted for further management. [facility] Medical History ESBL (extended spectrum beta-lactamase) producing bacteria infection Neuropathy Myocardial infarct GERD (gastroesophageal reflux disease) Diabetes type 2, uncontrolled Hypertension Pacemaker Cardiac defibrillator in place Home Medications ?Medication ?Instructions ?Recorded ?Last Taken ?Type blood sugar diagnostic (OneTouch #100 ea 12/21/23 Unkn own Rx Ultra Test strips) lancets 30 gauge (E-Z Ject Lancets) #100 ea 12/21/23 U nknown Rx digoxin 125 mcg (0.125 mg) tablet 125 mcg PO DAILY hea rt #30 tabs 03/20/25 04/01/25 09:00 Rx furosemide 20 mg tablet 20 mg PO DAILY PRN Swelling #30 03/20/25 Unknown Rx tabs glimepiride 4 mg tablet 4 mg PO QAM diabetes #30 tab s 03/20/25 Unknown Rx losartan 50 mg tablet 50 mg PO DAILY bp #30 tabs 0 03/20/25 04/01/25 09:00 Rx metformin 850 mg tablet 850 mg PO BID diabetes #60 t abs 03/20/25 04/01/25 09:00 Rx 850 mg metoprolol succinate 100 mg 100 mg PO DAILY heart #30 tabs 03/20/25 04/01/25 09:00 Rx tablet,extended release 24 hr nitroglycerin 0.4 mg sublingual 0.4 mg sublingual Q5-1 5M PRN chest 03/20/25 Unknown Rx tablet pain #30 tabs omeprazole 40 mg capsule,delayed 40 mg PO DAILY PRN GE RD #30 caps 03/20/25 04/01/25 09:00 Rx release semaglutide 0.25 mg or 0.5 mg (2 0.5 mg (0.736 mL) sub cut QWEEK 03/20/25 04/01/25 09:00 Rx mg/3 mL) subcutaneous pen injector diabetes #3 mL 0.5 mg (Ozempic) Allergy/AdvReac Type Severity Reaction Status Date / Time sitagliptin (From [facility]) Allergy Severe Rash Verified 04/01/25 20:10 Ycrwkia-VHH-HgP Reductase Allergy Intermediate cramps Verified 04/01/25 20:10 Inhibitor (Tqugosj-Pfj-Afk Reductase Inhibitor) dapagliflozin (From [facility]) AdvReac Severe yeast Verified 04/01/25 20:10 Family History Sister Breast cancer Diabetes Thyroid disorder Mother CVA (cerebral vascular accident) Diabetes Heart disease Myocardial infarction Father Heart disease Myocardial infarction Other CAD (coronary artery disease) Surgical History H/O tubal ligation H/O heart artery stent Social History Smoking Status: Never smoker ROS Constitutional Constitutional: Denies chills, fatigue, fever(s) or weakness Eyes Eyes: Denies change in vision Cardiovascular Cardiovascular: Reports chest pain Respiratory/Chest Respiratory/Chest: Reports shortness of breath with exertion; Denies shortness of breath at rest or wheezing Gastrointestinal Gastrointestinal: Denies abdominal pain Musculoskeletal Musculoskeletal: Denies arthralgias or myalgias Vital Signs Vital Signs Vital Signs: 04/01/25 20:10 04/01/25 20:25 04/01/25 20:36 Temperature 98 F Temperature Source Oral Pulse Rate 127 H Respiratory Rate 33 H Blood Pressure 145/94 H 147/136 H Blood Pressure Mean 111 Pulse Ox 98 Oxygen Delivery Method Room Air Oxygen Flow Rate (L/min) 04/01/25 20:40 04/01/25 20:46 04/01/25 21:10 Temperature Temperature Source Pulse Rate 117 H 111 H Respiratory Rate 29 H 28 H Blood Pressure 137/73 H 117/95 H Blood Pressure Mean 94 102 Pulse Ox 89 94 96 Oxygen Delivery Method Room Air Nasal Cannula Nasal Cannula Oxygen Flow Rate (L/min) 2 2 04/01/25 21:30 04/01/25 22:09 04/01/25 22:30 Temperature Temperature Source Pulse Rate 109 H 108 H 111 H Respiratory Rate 31 H 31 H Blood Pressure 107/72 121/75 H 114/60 Blood Pressure Mean 83 90 78 Pulse Ox 96 95 98 Oxygen Delivery Method Nasal Cannula Nasal Cannula Oxygen Flow Rate (L/min) 2 2 04/01/25 23:00 04/01/25 23:30 04/01/25 23:42 Temperature 98 F Temperature Source Pulse Rate 70 92 92 Respiratory Rate 23 H Blood Pressure 120/70 110/82 H 110/82 H Blood Pressure Mean 86 91 91 Pulse Ox 98 96 96 Oxygen Delivery Method Oxygen Flow Rate (L/min) Weight Weight: 96.7 kg Body Mass Index (BMI) 35.4 Physical Exam Const alert, oriented x3 and no apparent distress Constitutional Narrative: Upper middle-aged female, class I obesity, poor dentition noted, mildly fatiguedappearing but otherwise sitting back comfortably in bed, conversing normally, inno acute distress. General Appearance: cooperative and comfortable HEENT normocephalic, head/scalp atraumatic, hearing grossly normal bilaterally, nasal mucous membranes and turbinates normal and moist oral mucous membranes Eyes PERRL, EOMs intact bilaterally and conjunctivae normal Neck full ROM Chest inspection of chest normal Resp normal respiratory effort and no use of accessory muscles Resp Narrative: Breathing comfortably on 2 L nasal cannula at rest. Diminished breath sounds atbilateral lung bases with mild crackles noted in mid lung zones. No wheezing noted. Cardio regular rate, regular rhythm, no murmurs and peripheral pulses 2+ throughout GI normal to inspection, nondistended, normoactive bowel sounds, soft to palpation,non-tender and non-distended Back/Spine normal ROM Extremity full ROM Extremity Narrative: +1-2 lower extremity pitting edema noted. Skin no rashes or lesions noted Psych mental status grossly normal Results Lab / Micro Data 04/01/25 20:14 04/01/25 20:14 Labs: Laboratory Results - last 24 hr 04/01/25 20:14: WBC 10.0, RBC 4.99, Hgb 15.3 H, Hct 46.6, MCV 93.4, MCH 30.7, MCHC 32.8, RDW Std Deviation 48.3 H, RDW Coeff of Cally 14.2, Plt Count 242, MPV 12.9 H, Immature Gran % (Auto) 0.200, Neut % (Auto) 40.6 L, Lymph % (Auto) 47.8 H, Crosby % (Auto) 9.2, Eos % (Auto) 1.3, Baso % (Auto) 0.9, Absolute Neuts (auto)4.1, Absolute Lymphs (auto) 4.77 H, Nucleated RBC % 0, D-Dimer Quant (PE/DVT) 0.37, Sodium 134, Potassium 4.3, Chloride 100, Carbon Dioxide 19.2 L, Anion Gap 15, BUN 13, Creatinine 0.67 L, Estim Creat Clear Calc 100.16, Est GFR (MDRD) Non-Af 99, BUN/Creatinine Ratio 19.3, Glucose 337 H, Calcium 9.8, Total Bilirubin 0.57, Direct Bilirubin 0.27, AST 85 H, ALT 83 H, Alkaline Phosphatase 144 H, Troponin T High Sens 142 H* D, Total Protein 7.1, Albumin 4.1, Globulin 3.0, Lipase 26, Digoxin 0.76 04/01/25 22:26: Troponin T Hi Sens 2 Hr 127 H*, NT pro BNP II 1180 H ABG Data ABG results: ABG 04/01/25 23:05 Specimen Type LAYO Sample Site Not entered O2 % 2.0 VBG pH 7.39 VBG pO2 39 VBG HCO3 24 VBG Total CO2 25 VBG O2 Sat (Calc) 73 H VBG Base Excess -1 POC Mix VBG pCO2 Pt Tmp 39.8 L O2 Delivery Device Cannula Imaging Radiology Impression Chest X-Ray 04/01/25 20:21 IMPRESSION: Cardiomegaly with pulmonary edema. No sizable pleural effusion. Reading Location: [id number] Assessment & Plan Assessment/Plan (1) Acute non-ST elevation myocardial infarction (NSTEMI): PLAN: Plan Patient is a 64-year-old female who presented to [facility] ED on 04/01/2025 with chest discomfort and shortness of breath. 1. NSTEMI with acute on chronic HFrEF; history of CAD with stenting, hypertension, history of pacemaker/defibrillator placement, reported history of A-fib/flutter ? Admit under inpatient status to PCU. Cardiology consulted. Presented with intermittent chest pain and shortness of breath. Troponin trend 152 > 142 > 127> 132. EKG showed sinus tachycardia with frequent PACs and PVCs, nonspecific intraventricular block and T wave abnormalities concerning for inferior and anterolateral ischemia. NT-proBNP 1180. Chest x-ray showed cardiomegaly with vascular congestion. Last echo in 2017 per [facility] records showed EF 35%. Recent lipid panel on 03/20 showed total cholesterol 268, LDL 160, HDL 32. Patient notably is not on a statin due to intolerance. Has poorly controlled diabetes as below. Have high concern for coronary disease leading to NSTEMI given all of these risk factors. Continue heparin drip. Will start IV Lasix 40mg twice daily for now. Monitor daily BMP and urine output. N.p.o. at midnightwith likely plan for left heart cath tomorrow. Echocardiogram ordered. Continue home digoxin and Toprol at reduced dose of 50 mg daily. Hold home losartan. 2. Poorly controlled type 2 diabetes mellitus with hyperglycemia ? Blood glucose 337 on admit. A1c 11.7% on 03/18. Hold home medications. Will treat with Lantus 15 units daily and Humalog sliding scale insulin with meals while inpatient, adjust as needed. 3. Class I obesity ? BMI 31 on admit. Complicates hospital course, care and prognosis. DVT prophylaxis: Not indicated, on heparin drip CODE STATUS: Full code, verified Expected disposition: TBD Total clinical time spent by myself addressing the patient's medical issues, reviewing all the data, and collaborating with patient's care team: 75 minutes. Charges/Coding Visit Charges Inpatient E&M: 00653 Init Hosp L3 04/02/25 0506 <Electronically signed by Franko Cueto DO> Cosigner Signature (if applicable): CC: ESTEBAN Garcia; Dr. Franko Cueto DO~ Signed [facility] Work Phone: [phone]) 943-994607-10-2025 History and physical note [facility] Medical Records Department [address] [place] [address] H&P Exam - Hospitalist 04/01/25 2346 MR#: [id number] Acct: [id number] Name: EAMON HUSTON Rep #:[id number] : 1960 64 From: Franko daley DO PCP: ESTEBAN Castellanos Status:ADM IN Location: [place] [id number] HPI - General General Date of Admission: 04/02/25 Date of Service: 04/01/25 Chief Complaint: Chest discomfort and shortness of breath HPI Narrative EAMON HUSTON, is a 64 F who presented to [facility] ED on 04/01/2025 with chest discomfort and shortness of breath. Medical history is significant for CAD with remote stenting, CHF, status post pacemaker and defibrillator placement, and poorly controlled type 2 diabetes mellitus. She saw her PCP on 03/31 and reported intermittent symptoms of chest discomfort and shortness of breath forthe past 2 to 3 days. Lab work was sent and showed an elevated troponin of 153 so she was told to come to the ED for further evaluation. On arrival to the ED she was tachycardic to the 120s and mildly hypertensive, otherwise stable on room air. Per ED physician, she was pale and somewhat uncomfortable appearing. CBC and BMP were benign. Troponin trend 142 > 127 > 132. Chest x-ray showed cardiomegaly with pulmonary edema. Blood glucose 337 and last A1c 11.7% on 03/20. Patient was given a dose of nitro and had significant improvement in pain with that. Given concern for NSTEMI, hospitalist was contacted for admission. I saw the patient at bedside in the ED. Patient was sitting back fairly comfortably in bed, conversing normally, inno acute distress. Noted that her chest discomfort continues to feel improved now compared to earlier today. She does report some radiation of pain to the back over the past few days as well and this feels improved currently. Given her history and symptoms, patient was started on a heparin drip given high concern for NSTEMI. Will be admitted for furthermanagement. [facility] Medical History ESBL (extended spectrum beta-lactamase) producing bacteria infection Neuropathy Myocardial infarct GERD (gastroesophageal reflux disease) Diabetes type 2, uncontrolled Hypertension Pacemaker Cardiac defibrillator in place Home Medications ?Medication ?Instructions ?Recorded ?Last Taken ?Type blood sugar diagnostic (OneTouch #100 ea 12/21/23 Unkn own Rx Ultra Test strips) lancets 30 gauge (E-Z Ject Lancets) #100 ea 12/21/23 U nknown Rx digoxin 125 mcg (0.125 mg) tablet 125 mcg PO DAILY hea rt #30 tabs 03/20/25 04/01/25 09:00 Rx furosemide 20 mg tablet 20 mg PO DAILY PRN Swelling #30 03/20/25 Unknown Rx tabs glimepiride 4 mg tablet 4 mg PO QAM diabetes #30 tab s 03/20/25 Unknown Rx losartan 50 mg tablet 50 mg PO DAILY bp #30 tabs 0 03/20/25 04/01/25 09:00 Rx metformin 850 mg tablet 850 mg PO BID diabetes #60 t abs 03/20/25 04/01/25 09:00 Rx 850 mg metoprolol succinate 100 mg 100 mg PO DAILY heart #30 tabs 03/20/25 04/01/25 09:00 Rx tablet,extended release 24 hr nitroglycerin 0.4 mg sublingual 0.4 mg sublingual Q5-1 5M PRN chest 03/20/25 Unknown Rx tablet pain #30 tabs omeprazole 40 mg capsule,delayed 40 mg PO DAILY PRN GE RD #30 caps 03/20/25 04/01/25 09:00 Rx release semaglutide 0.25 mg or 0.5 mg (2 0.5 mg (0.736 mL) sub cut QWEEK 03/20/25 04/01/25 09:00 Rx mg/3 mL) subcutaneous pen injector diabetes #3 mL 0.5 mg (Ozempic) Allergy/AdvReac Type Severity Reaction Status Date / Time sitagliptin (From Januvia) Allergy Severe Rash Verified 04/01/25 20:10 Jfejqah-JZR-ZwJ Reductase Allergy Intermediate cramps Verified 04/01/25 20:10 Inhibitor (Syfevrs-Gkv-Fhl Reductase Inhibitor) dapagliflozin (From [facility]) AdvReac Severe yeast Verified 04/01/25 20:10 Family History Sister Breast cancer Diabetes Thyroid disorder Mother CVA (cerebral vascular accident) Diabetes Heart disease Myocardial infarction Father Heart disease Myocardial infarction Other CAD (coronary artery disease) Surgical History H/O tubal ligation H/O heart artery stent Social History Smoking Status: Never smoker ROS Constitutional Constitutional: Denies chills, fatigue, fever(s) or weakness Eyes Eyes: Denies change in vision Cardiovascular Cardiovascular: Reports chest pain Respiratory/Chest Respiratory/Chest: Reports shortness of breath with exertion; Denies shortness of breath at rest orwheezing Gastrointestinal Gastrointestinal: Denies abdominal pain Musculoskeletal Musculoskeletal: Denies arthralgias or myalgias Vital Signs Vital Signs Vital Signs: 04/01/25 20:10 04/01/25 20:25 04/01/25 20:36 Temperature 98 F Temperature Source Oral Pulse Rate 127 H Respiratory Rate 33 H Blood Pressure 145/94 H 147/136 H Blood Pressure Mean 111 Pulse Ox 98 Oxygen Delivery Method Room Air Oxygen Flow Rate (L/min) 04/01/25 20:40 04/01/25 20:46 04/01/25 21:10 Temperature Temperature Source Pulse Rate 117 H 111 H Respiratory Rate 29 H 28 H Blood Pressure 137/73 H 117/95 H Blood Pressure Mean 94 102 Pulse Ox 89 94 96 Oxygen Delivery Method Room Air Nasal Cannula Nasal Cannula Oxygen Flow Rate (L/min) 2 2 04/01/25 21:30 04/01/25 22:09 04/01/25 22:30 Temperature Temperature Source Pulse Rate 109 H 108 H 111 H Respiratory Rate 31 H 31 H Blood Pressure 107/72 121/75 H 114/60 Blood Pressure Mean 83 90 78 Pulse Ox 96 95 98 Oxygen Delivery Method Nasal Cannula Nasal Cannula Oxygen Flow Rate (L/min) 2 2 04/01/25 23:00 04/01/25 23:30 04/01/25 23:42 Temperature 98 F Temperature Source Pulse Rate 70 92 92 Respiratory Rate 23 H Blood Pressure 120/70 110/82 H 110/82 H Blood Pressure Mean 86 91 91 Pulse Ox 98 96 96 Oxygen Delivery Method Oxygen Flow Rate (L/min) Weight Weight: 96.7 kg Body Mass Index (BMI) 35.4 Physical Exam Const alert, oriented x3 and no apparent distress Constitutional Narrative: Upper middle-aged female, class I obesity, poor dentition noted, mildly fatiguedappearing but otherwise sitting back comfortably in bed, conversing normally, inno acute distress. General Appearance: cooperative and comfortable HEENT normocephalic, head/scalp atraumatic, hearing grossly normal bilaterally, nasal mucous membranes and turbinates normal and moist oral mucous membranes Eyes PERRL, EOMs intact bilaterally and conjunctivae normal Neck full ROM Chest inspection of chest normal Resp normal respiratory effort and no use of accessory muscles Resp Narrative: Breathing comfortably on 2 L nasal cannula at rest. Diminished breath sounds atbilateral lung baseswith mild crackles noted in mid lung zones. No wheezing noted. Cardio regular rate, regular rhythm, no murmurs and peripheral pulses 2+ throughout GI normal to inspection, nondistended, normoactive bowel sounds, soft to palpation,non-tender and non-distended Back/Spine normal ROM Extremity full ROM Extremity Narrative: +1-2 lower extremity pitting edema noted. Skin no rashes or lesions noted Psych mental status grossly normal Results Lab / Micro Data 04/01/25 20:14 04/01/25 20:14 Labs: Laboratory Results - last 24 hr 04/01/25 20:14: WBC 10.0, RBC 4.99, Hgb 15.3 H, Hct 46.6, MCV 93.4, MCH 30.7, MCHC 32.8, RDW Std Deviation 48.3 H, RDW Coeff of Cally 14.2, Plt Count 242, MPV 12.9 H, Immature Gran % (Auto) 0.200, Neut% (Auto) 40.6 L, Lymph % (Auto) 47.8 H, Crosby % (Auto) 9.2, Eos % (Auto) 1.3, Baso % (Auto) 0.9, Absolute Neuts (auto)4.1, Absolute Lymphs (auto) 4.77 H, Nucleated RBC % 0, D-Dimer Quant (PE/DVT) 0.37, Sodium 134, Potassium 4.3, Chloride 100, Carbon Dioxide 19.2 L, Anion Gap 15, BUN 13, Creatinine 0.67 L, Estim Creat Clear Calc 100.16, Est GFR (MDRD) Non-Af 99, BUN/Creatinine Ratio 19.3, Glucose 337 H, Calcium 9.8, Total Bilirubin 0.57, Direct Bilirubin 0.27, AST 85 H, ALT 83 H, Alkaline Phosphatase 144 H, Troponin T High Sens 142 H* D, Total Protein 7.1, Albumin 4.1, Globulin 3.0, Lipase 26, Digoxin 0.76 04/01/25 22:26: Troponin T Hi Sens 2 Hr 127 H*, NT pro BNP II 1180 H ABG Data ABG results: ABG 04/01/25 23:05 Specimen Type LAYO Sample Site Not entered O2 % 2.0 VBG pH 7.39 VBG pO2 39 VBG HCO3 24 VBG Total CO2 25 VBG O2 Sat (Calc) 73 H VBG Base Excess -1 POC Mix VBG pCO2 Pt Tmp 39.8 L O2 Delivery Device Cannula Imaging Radiology Impression Chest X-Ray 04/01/25 20:21 IMPRESSION: Cardiomegaly with pulmonary edema. No sizable pleural effusion. Reading Location: [id number] Assessment & Plan Assessment/Plan (1) Acute non-ST elevation myocardial infarction (NSTEMI): PLAN: Plan Patient is a 64-year-old female who presented to [facility] ED on 04/01/2025 with chest discomfort and shortness of breath. 1. NSTEMI with acute on chronic HFrEF; history of CAD with stenting, hypertension, history of pacemaker/defibrillator placement, reported history of A-fib/flutter ? Admit under inpatient status to PCU. Cardiology consulted. Presented with intermittent chest painand shortness of breath. Troponin trend 152 > 142 > 127> 132. EKG showed sinus tachycardiawith frequent PACs and PVCs, nonspecific intraventricular block and T wave abnormalities concerningfor inferior and anterolateral ischemia. NT-proBNP 1180. Chest x-ray showed cardiomegaly with vascular congestion. Last echo in 2017 per [facility] records showed EF 35%. Recent lipid panel on 03/20 showed total cholesterol 268, LDL 160, HDL 32. Patient notably is not on a statin due to intolerance. Has poorly controlled diabetes as below. Have high concern for coronary disease leading to NSTEMI giv en all of these risk factors. Continue heparin drip. Will start IV Lasix 40mg twice daily for now. Monitor daily BMP and urine output. N.p.o. at midnightwith likely plan for left heart cath tomorrow.Echocardiogram ordered. Continue home digoxin and Toprol at reduced dose of 50 mg daily. Hold home losartan. 2. Poorly controlled type 2 diabetes mellitus with hyperglycemia ? Blood glucose 337 on admit. A1c 11.7% on 03/18. Hold home medications. Will treat with Lantus 15 units daily and Humalog sliding scale insulin with meals while inpatient, adjust as needed. 3. Class I obesity ? BMI 31 on admit. Complicates hospital course, care and prognosis. DVT prophylaxis: Not indicated, on heparin drip CODE STATUS: Full code, verified Expected disposition: TBD Total clinical time spent by myself addressing the patient's medical issues, reviewing all the data, and collaborating with patient's care team: 75 minutes. Charges/Coding Visit Charges Inpatient E&M: 21943 Init Hosp L3 04/02/25 0506 Cosigner Signature (if applicable): CC: ESTEBAN Garcia; Dr. Franko Cueto, DO~ Signed [facility]07-10-2025 Discharge summary Author [facility] Note Date/Time April 02, 2025 12:0 7am [facility] Medical Records Department [address] [place] [address] Emergency Department Summary 04/01/25 MR#: [id number] Acct: [id number] Name: EAMON HUSTON Rep #:[id number] : 1960 64 From: Mago Danielson PCP: ESTEBAN Castellanos Status:REG ER Location: ED HPI History of Present Illness Chief Complaint: Chest Pain Informant: patient Narrative Narrative: Patient is a 64-year-old female with history of coronary artery disease (status post stents), congestive heart failure, atrial fibrillation (not on anticoagulation), hypertension and poorly controlled type 2 diabetes mellitus presenting with chest pressure that radiates to her back and shortness of breath. Also reports a cough productive of sputum. Patient states has been having the symptoms for 2 to 3 days. States they are intermittent. She went and saw family practice yesterday for the symptoms and had outpatient labs drawnincluding a troponin, CBC, CMP, troponin, CRP and A1c as well as TSH. Lab work was remarkable for an elevated troponin T of 153 and patient was contacted todayto come to the emergency room because they are worried she was having a heart attack. Patient states she was not having any chest pain and that she was cleaning her house until he told her about her symptoms and then she started having chest pain again. She denies any swelling of her legs. Her A1c was alsoelevated at 12 and her bicarb was low at 19 with a glucose of 242 but a normal anion gap (15). Patient denies any ripping or tearing sensation. Denies any recent medication changes. Denies any fever or chills but states she feels warm right now. [facility] Medical History ESBL (extended spectrum beta-lactamase) producing bacteria infection Neuropathy Myocardial infarct GERD (gastroesophageal reflux disease) Diabetes type 2, uncontrolled Hypertension Pacemaker Cardiac defibrillator in place Home Medications ?Medication ?Instructions ?Recorded ?Last Taken ?Type omega-3 fatty acids 1,000 mg 2,000 mg PO DAILY 9 Unknown History capsule (Fish Oil Concentrate) blood sugar diagnostic (OneTouch #100 ea 12/21/23 Unkn own Rx Ultra Test strips) lancets 30 gauge (E-Z Ject Lancets) #100 ea 12/21/23 U nknown Rx digoxin 125 mcg (0.125 mg) tablet 125 mcg PO DAILY #30 tabs 03/20/25 Unknown Rx furosemide 20 mg tablet 20 mg PO DAILY PRN Swelling #30 03/20/25 Unknown Rx tabs glimepiride 4 mg tablet 4 mg PO QAM #30 tabs 5 Unknown Rx losartan 50 mg tablet 50 mg PO DAILY #30 tabs 02/23 04/17 Unknown Rx metformin 850 mg tablet 850 mg PO BID #60 tabs 03/20 Unknown Rx metoprolol succinate 100 mg 100 mg PO DAILY #30 tabs 0 03/20/25 Unknown Rx tablet,extended release 24 hr nitroglycerin 0.4 mg sublingual 0.4 mg sublingual Q5-1 5M PRN chest 03/20/25 Unknown Rx tablet pain #30 tabs omeprazole 40 mg capsule,delayed 40 mg PO DAILY PRN GE RD #30 caps 03/20/25 Unknown Rx release pioglitazone 45 mg tablet 45 mg PO QDAY #30 tabs 03/20 Unknown Rx semaglutide 0.25 mg or 0.5 mg (2 0.5 mg (0.736 mL) sub cut QWEEK 03/20/25 Unknown Rx mg/3 mL) subcutaneous pen injector diabetes #3 mL (Ozempic) Allergy/AdvReac Type Severity Reaction Status Date / Time sitagliptin (From Sep) Allergy Severe Rash Verified 04/01/25 20:10 [id number]-[id number] Reductase Allergy Intermediate cramps Verified 04/01/25 20:10 Inhibitor (Ezzfhei-Mcf-Rxy Reductase Inhibitor) dapagliflozin (From [facility]) AdvReac Severe yeast Verified 04/01/25 20:10 Family History Sister Breast cancer Diabetes Thyroid disorder Mother CVA (cerebral vascular accident) Diabetes Heart disease Myocardial infarction Father Heart disease Myocardial infarction Other CAD (coronary artery disease) Surgical History H/O tubal ligation H/O heart artery stent Social History Smoking Status: Never smoker ROS ROS ED Constitutional Constitutional ED: Reports sweats; Denies chills or fever(s) Cardiovascular Cardiovascular: Reports as per HPI, chest pain, palpitations and racing heartbeat Respiratory/Chest Respiratory/Chest: Reports cough, dyspnea and sputum Gastrointestinal Gastrointestinal: Denies abdominal pain, diarrhea, nausea or vomiting Musculoskeletal Musculoskeletal: Reports back pain; Denies arthralgias or myalgias Integumentary Denies rash Neurologic Neurologic: Denies paresthesias or weakness Psychiatric Psychiatric: Reports anxiety Hematologic/Lymphatic Hematologic/Lymphatic: Denies easy bleeding or easy bruising EXAM Physical Exam Const Vital Signs: 04/01/25 20:10 04/01/25 20:25 04/01/25 20:36 Temperature 98 F Temperature Source Oral Pulse Rate 127 H Respiratory Rate 33 H Blood Pressure 145/94 H 147/136 H Blood Pressure Mean 111 Pulse Ox 98 Oxygen Delivery Method Room Air Oxygen Flow Rate (L/min) 04/01/25 20:40 04/01/25 20:46 04/01/25 21:10 Temperature Temperature Source Pulse Rate 117 H 111 H Respiratory Rate 29 H 28 H Blood Pressure 137/73 H 117/95 H Blood Pressure Mean 94 102 Pulse Ox 89 94 96 Oxygen Delivery Method Room Air Nasal Cannula Nasal Cannula Oxygen Flow Rate (L/min) 2 2 04/01/25 21:30 04/01/25 22:09 04/01/25 22:30 Temperature Temperature Source Pulse Rate 109 H 108 H 111 H Respiratory Rate 31 H 31 H Blood Pressure 107/72 121/75 H 114/60 Blood Pressure Mean 83 90 78 Pulse Ox 96 95 98 Oxygen Delivery Method Nasal Cannula Nasal Cannula Oxygen Flow Rate (L/min) 2 2 04/01/25 23:00 04/01/25 23:30 04/01/25 23:42 Temperature 98 F Temperature Source Pulse Rate 70 92 92 Respiratory Rate 23 H Blood Pressure 120/70 110/82 H 110/82 H Blood Pressure Mean 86 91 91 Pulse Ox 98 96 96 Oxygen Delivery Method Oxygen Flow Rate (L/min) Positive well nourished and well developed Constitutional Narrative: Mildly ill-appearing General Appearance ED: well developed; Negative for pallor HEENT normocephalic Eyes PERRL Neck supple and no JVD Chest Wall inspection of chest normal and palpation of chest normal Resp normal respiratory effort and clear to auscultation bilaterally Cardio regular rhythm and no murmurs Rate: tachycardic Peripheral Pulses: pulses 2+ throughout GI normal to inspection, nondistended, normoactive bowel sounds, soft to palpation and non-tender Extremity normal to inspection Neuro oriented x3 Sensorium / Orientation: awake Motor Exam: Negative for general weakness Psych mental status grossly normal Mood & Affect: anxious Skin no rashes or lesions noted and no wounds General Skin Exam: Negative for jaundice or pallor Heart Score History: Moderately Suspicious ECG: Nonspecific Repolarization Age: >45 - <65 years Risk Factors: >/= 3 Risk Factors or History of CAD Troponin: >/=3 x Normal Limit Score: 7 MDM MDM MDM Narrative Medical decision making narrative: Patient is evaluated with intermittent chest pain and some associated shortness of breath for the past 2 to 3 days. Had outpatient labs because she was seen for palpitations and her troponin was elevated and she was sent to the ER. She states after finding this news her chest pain did return. Upon arrival patient is mildly hypertensive, tachypneic and tachycardic. She is placed on oxygen for comfort. Cardiac workup is initiated. EKG is not consistent with STEMI but high concern for ACS given elevated outpatient troponin with chest pain. Patient is given nitroglycerin with improvement of her pain. Is given aspirin in the emergency room. Initially started on gentle IV fluids as she did not clinically appear fluid overloaded however her chest x-ray shows pulmonary vascular congestion and BNP added on which is abated. Will diurese the patient. High-sensitivity troponin is stable and mildly downtrending. Patient's tachycardia improves. VBG is added on given her tachypnea and to ensure that she is not hypercapnic or have an underlying metabolic acidosis. This is shows a normal pH and a mildly low pCO2 which is nonspecific. Case discussed with hospitalist for admission and further cardiac evaluation. Will treat patient as NSTEMI and started on a heparin drip after discussion withhospitalist. Patient agreeable with admission. Patient's rate is not below 100. Repeat EKG does show improvement of T wave inversions and is now fully paced. Lab Data Attestation: I reviewed the patient's lab results. Labs: Laboratory Results - last 24 hr 04/01/25 04/01/25 20:14 22:26 WBC 10.0 RBC 4.99 Hgb 15.3 H Hct 46.6 MCV 93.4 MCH 30.7 MCHC 32.8 RDW Std Deviation 48.3 H RDW Coeff of Cally 14.2 Plt Count 242 MPV 12.9 H Immature Gran % (Auto) 0.200 Neut % (Auto) 40.6 L Lymph % (Auto) 47.8 H Crosby % (Auto) 9.2 Eos % (Auto) 1.3 Baso % (Auto) 0.9 Absolute Neuts (auto) 4.1 Absolute Lymphs (auto) 4.77 H Nucleated RBC % 0 D-Dimer Quant (PE/DVT) 0.37 Sodium 134 Potassium 4.3 Chloride 100 Carbon Dioxide 19.2 L Anion Gap 15 BUN 13 Creatinine 0.67 L Estim Creat Clear Calc 100.16 Est GFR (MDRD) Non-Af 99 BUN/Creatinine Ratio 19.3 Glucose 337 H Calcium 9.8 Total Bilirubin 0.57 Direct Bilirubin 0.27 AST 85 H ALT 83 H Alkaline Phosphatase 144 H Troponin T High Sens 142 H* D Troponin T Hi Sens 2 Hr 127 H* NT pro BNP II 1180 H Total Protein 7.1 Albumin 4.1 Globulin 3.0 Lipase 26 Digoxin 0.76 ABG Data ABG results: ABG 04/01/25 23:05 Specimen Type LAYO Sample Site Not entered O2 % 2.0 VBG pH 7.39 VBG pO2 39 VBG HCO3 24 VBG Total CO2 25 VBG O2 Sat (Calc) 73 H VBG Base Excess -1 POC Mix VBG pCO2 Pt Tmp 39.8 L O2 Delivery Device Cannula Radiography Chest X-Ray - ED: 1 View, Read by ED Physician, Read by Radiologist and CHF Diagnostic Testing: Clinical Impression(s) from Imaging Studies Chest X-Ray 04/01/25 20:21 IMPRESSION: Cardiomegaly with pulmonary edema. No sizable pleural effusion. Reading Location: [facility] Rhythm Strip Rhythm Strip: Sinus Tach Rate: 125 Ectopy: PVC(s) EKG Initial EKG: Attestation: I personally reviewed and interpreted this EKG as follows: Comments: Sinus tachycardia at a rate of 125 bpm with PVCs and occasional paced complexes. Nonspecific interventricular conduction delay present Relatively diffuse T wave inversions consistent with a strain pattern. Compared to prior EKG patient now has T wave inversions in inferior leads as well as leads V3 4 through V6 Prior EKG tracings: available for review Prior: Changed Follow-up EKG: Attestation: I personally reviewed and interpreted this EKG as follows: Interpretation: Paced Comments: Atrial sensed ventricular paced rhythm Reversal T wave inversions compared to prior EKG Rate of 96 bpm Management Discussion w/another healthcare provider: Hospitalist Discharge Plan Triage Chief Complaint: Chest Pain ED Provider: Mago Jang Dx/Rx/DC Orders Clinical Impression: Acute non-ST elevation myocardial infarction (NSTEMI), Congestive heart failure, CAD (coronary artery disease), Chest pain Prescriptions: No Action omega-3 fatty acids [Fish Oil Concentrate] 1,000 mg capsule 2,000 mg PO DAILY (DME) OneTouch Ultra Test Strip See Rx Instructions .Route Qty: 100 12RF Rx Instructions: As directed (DME) lancets [E-Z Ject Lancets] 30 gauge misc See Rx Instructions .Route Qty: 100 3RF Rx Instructions: As directed digoxin 125 mcg (0.125 mg) tablet 125 mcg PO DAILY Qty: 30 12RF furosemide 20 mg tablet 20 mg PO DAILY PRN (Reason: Swelling) Qty: 30 12RF glimepiride 4 mg tablet 4 mg PO QAM Qty: 30 12RF Rx Instructions: administer with breakfast losartan 50 mg tablet 50 mg PO DAILY Qty: 30 12RF metformin 850 mg tablet 850 mg PO BID Qty: 60 12RF metoprolol succinate 100 mg tablet extended release 24 hr 100 mg PO DAILY Qty: 30 12RF nitroglycerin 0.4 mg tablet, sublingual 0.4 mg SUBLINGUAL Q5-15M PRN (Reason: chest pain) Qty: 30 12RF Rx Instructions: until response; do not exceed 3 doses per episode omeprazole 40 mg capsule,delayed release(DR/EC) 40 mg PO DAILY PRN (Reason: GERD) Qty: 30 12RF pioglitazone 45 mg tablet 45 mg PO QDAY Qty: 30 12RF Ozempic 0.25 mg or 0.5 mg (2 mg/3 mL) pen injector 0.5 mg subcut QWEEK Qty: 3 6RF Primary Care Provider: Naima Garcia NP Referrals: Naima Garcia NP, [facility] [Primary Care Provider] - Print Language: Israeli What to do if you have Problems For any increased pain, shortness of breath, bleeding, nausea or vomiting, chestpain, or any unexpected problems, contact your Primary Care Provider. Call [facility] ([phone]) or report to the closest Emergency Room. Call 911 if necessary. 04/02/256 <Electronically signed by Mago Jang DO> Cosigner Signature (if applicable): CC: [facility] Naima Garcia ~ Signed [facility] Work Phone: [phone] 340-466907-10-2025 Discharge summary Author Mago Jang [facility] Note Date/Time April 02, 2025 12:0 7am [facility] Medical Records Department [address] [place] [address] Emergency Department Summary 04/01/25 MR#: [id number] Acct: [id number] Name: EAMON HUSTON Rep #:[id number] : 1960 64 From: Mago Danielson PCP: ESTEBAN Castellanos Status:REG ER Location: ED HPI History of Present Illness Chief Complaint: Chest Pain Informant: patient Narrative Narrative: Patient is a 64-year-old female with history of coronary artery disease (status post stents), congestive heart failure, atrial fibrillation (not on anticoagulation), hypertension and poorly controlled type 2 diabetes mellitus presenting with chest pressure that radiates to her back and shortness of breath. Also reports a cough productive of sputum. Patient states has been having the symptoms for 2 to 3 days. States they are intermittent. She went and saw family practice yesterday for the symptoms and had outpatient labs drawnincluding a troponin, CBC, CMP, troponin, CRP and A1c as well as TSH. Lab work was remarkable for an elevated troponin T of 153 and patient was contacted todayto come to the emergency room because they are worried she was having a heart attack. Patient states she was not having any chest pain and that she was cleaning her house until he told her about her symptoms and then she started having chest pain again. She denies any swelling of her legs. Her A1c was alsoelevated at 12 and her bicarb was low at 19 with a glucose of 242 but a normal anion gap (15). Patient denies any ripping or tearing sensation. Denies any recent medication changes. Denies any fever or chills but states she feels warm right now. [facility] Medical History ESBL (extended spectrum beta-lactamase) producing bacteria infection Neuropathy Myocardial infarct GERD (gastroesophageal reflux disease) Diabetes type 2, uncontrolled Hypertension Pacemaker Cardiac defibrillator in place Home Medications ?Medication ?Instructions ?Recorded ?Last Taken ?Type omega-3 fatty acids 1,000 mg 2,000 mg PO DAILY 9 Unknown History capsule (Fish Oil Concentrate) blood sugar diagnostic (OneTouch #100 ea 12/21/23 Unkn own Rx Ultra Test strips) lancets 30 gauge (E-Z Ject Lancets) #100 ea 12/21/23 U nknown Rx digoxin 125 mcg (0.125 mg) tablet 125 mcg PO DAILY #30 tabs 03/20/25 Unknown Rx furosemide 20 mg tablet 20 mg PO DAILY PRN Swelling #30 03/20/25 Unknown Rx tabs glimepiride 4 mg tablet 4 mg PO QAM #30 tabs 5 Unknown Rx losartan 50 mg tablet 50 mg PO DAILY #30 tabs 02/23 04/17 Unknown Rx metformin 850 mg tablet 850 mg PO BID #60 tabs 03/20 Unknown Rx metoprolol succinate 100 mg 100 mg PO DAILY #30 tabs 0 03/20/25 Unknown Rx tablet,extended release 24 hr nitroglycerin 0.4 mg sublingual 0.4 mg sublingual Q5-1 5M PRN chest 03/20/25 Unknown Rx tablet pain #30 tabs omeprazole 40 mg capsule,delayed 40 mg PO DAILY PRN GE RD #30 caps 03/20/25 Unknown Rx release pioglitazone 45 mg tablet 45 mg PO QDAY #30 tabs 03/20 Unknown Rx semaglutide 0.25 mg or 0.5 mg (2 0.5 mg (0.736 mL) sub cut QWEEK 03/20/25 Unknown Rx mg/3 mL) subcutaneous pen injector diabetes #3 mL (Ozempic) Allergy/AdvReac Type Severity Reaction Status Date / Time sitagliptin (From ) Allergy Severe Rash Verified 04/01/25 20:10 Bwjumwv-FEG-CzH Reductase Allergy Intermediate cramps Verified 04/01/25 20:10 Inhibitor (Nhbmspd-Tci-Lxs Reductase Inhibitor) [facility]apagliflozin ([facility] AdvReac Severe yeast Verified 04/01/25 20:10 Family History Sister Breast cancer Diabetes Thyroid disorder Mother CVA (cerebral vascular accident) Diabetes Heart disease Myocardial infarction Father Heart disease Myocardial infarction Other CAD (coronary artery disease) Surgical History H/O tubal ligation H/O heart artery stent Social History Smoking Status: Never smoker ROS ROS ED Constitutional Constitutional ED: Reports sweats; Denies chills or fever(s) Cardiovascular Cardiovascular: Reports as per HPI, chest pain, palpitations and racing heartbeat Respiratory/Chest Respiratory/Chest: Reports cough, dyspnea and sputum Gastrointestinal Gastrointestinal: Denies abdominal pain, diarrhea, nausea or vomiting Musculoskeletal Musculoskeletal: Reports back pain; Denies arthralgias or myalgias Integumentary Denies rash Neurologic Neurologic: Denies paresthesias or weakness Psychiatric Psychiatric: Reports anxiety Hematologic/Lymphatic Hematologic/Lymphatic: Denies easy bleeding or easy bruising EXAM Physical Exam Const Vital Signs: 04/01/25 20:10 04/01/25 20:25 04/01/25 20:36 Temperature 98 F Temperature Source Oral Pulse Rate 127 H Respiratory Rate 33 H Blood Pressure 145/94 H 147/136 H Blood Pressure Mean 111 Pulse Ox 98 Oxygen Delivery Method Room Air Oxygen Flow Rate (L/min) 04/01/25 20:40 04/01/25 20:46 04/01/25 21:10 Temperature Temperature Source Pulse Rate 117 H 111 H Respiratory Rate 29 H 28 H Blood Pressure 137/73 H 117/95 H Blood Pressure Mean 94 102 Pulse Ox 89 94 96 Oxygen Delivery Method Room Air Nasal Cannula Nasal Cannula Oxygen Flow Rate (L/min) 2 2 04/01/25 21:30 04/01/25 22:09 04/01/25 22:30 Temperature Temperature Source Pulse Rate 109 H 108 H 111 H Respiratory Rate 31 H 31 H Blood Pressure 107/72 121/75 H 114/60 Blood Pressure Mean 83 90 78 Pulse Ox 96 95 98 Oxygen Delivery Method Nasal Cannula Nasal Cannula Oxygen Flow Rate (L/min) 2 2 04/01/25 23:00 04/01/25 23:30 04/01/25 23:42 Temperature 98 F Temperature Source Pulse Rate 70 92 92 Respiratory Rate 23 H Blood Pressure 120/70 110/82 H 110/82 H Blood Pressure Mean 86 91 91 Pulse Ox 98 96 96 Oxygen Delivery Method Oxygen Flow Rate (L/min) Positive well nourished and well developed Constitutional Narrative: Mildly ill-appearing General Appearance ED: well developed; Negative for pallor HEENT normocephalic Eyes PERRL Neck supple and no JVD Chest Wall inspection of chest normal and palpation of chest normal Resp normal respiratory effort and clear to auscultation bilaterally Cardio regular rhythm and no murmurs Rate: tachycardic Peripheral Pulses: pulses 2+ throughout GI normal to inspection, nondistended, normoactive bowel sounds, soft to palpation and non-tender Extremity normal to inspection Neuro oriented x3 Sensorium / Orientation: awake Motor Exam: Negative for general weakness Psych mental status grossly normal Mood & Affect: anxious Skin no rashes or lesions noted and no wounds General Skin Exam: Negative for jaundice or pallor Heart Score History: Moderately Suspicious ECG: Nonspecific Repolarization Age: >45 - <65 years Risk Factors: >/= 3 Risk Factors or History of CAD Troponin: >/=3 x Normal Limit Score: 7 MDM MDM MDM Narrative Medical decision making narrative: Patient is evaluated with intermittent chest pain and some associated shortness of breath for the past 2 to 3 days. Had outpatient labs because she was seen for palpitations and her troponin was elevated and she was sent to the ER. She states after finding this news her chest pain did return. Upon arrival patient is mildly hypertensive, tachypneic and tachycardic. She is placed on oxygen for comfort. Cardiac workup is initiated. EKG is not consistent with STEMI but high concern for ACS given elevated outpatient troponin with chest pain. Patient is given nitroglycerin with improvement of her pain. Is given aspirin in the emergency room. Initially started on gentle IV fluids as she did not clinically appear fluid overloaded however her chest x-ray shows pulmonary vascular congestion and BNP added on which is abated. Will diurese the patient. High-sensitivity troponin is stable and mildly downtrending. Patient's tachycardia improves. VBG is added on given her tachypnea and to ensure that she is not hypercapnic or have an underlying metabolic acidosis. This is shows a normal pH and a mildly low pCO2 which is nonspecific. Case discussed with hospitalist for admission and further cardiac evaluation. Will treat patient as NSTEMI and started on a heparin drip after discussion withhospitalist. Patient agreeable with admission. Patient's rate is not below 100. Repeat EKG does show improvement of T wave inversions and is now fully paced. Lab Data Attestation: I reviewed the patient's lab results. Labs: Laboratory Results - last 24 hr 04/01/25 04/01/25 20:14 22:26 WBC 10.0 RBC 4.99 Hgb 15.3 H Hct 46.6 MCV 93.4 MCH 30.7 MCHC 32.8 RDW Std Deviation 48.3 H RDW Coeff of Cally 14.2 Plt Count 242 MPV 12.9 H Immature Gran % (Auto) 0.200 Neut % (Auto) 40.6 L Lymph % (Auto) 47.8 H Crosby % (Auto) 9.2 Eos % (Auto) 1.3 Baso % (Auto) 0.9 Absolute Neuts (auto) 4.1 Absolute Lymphs (auto) 4.77 H Nucleated RBC % 0 D-Dimer Quant (PE/DVT) 0.37 Sodium 134 Potassium 4.3 Chloride 100 Carbon Dioxide 19.2 L Anion Gap 15 BUN 13 Creatinine 0.67 L Estim Creat Clear Calc 100.16 Est GFR (MDRD) Non-Af 99 BUN/Creatinine Ratio 19.3 Glucose 337 H Calcium 9.8 Total Bilirubin 0.57 Direct Bilirubin 0.27 AST 85 H ALT 83 H Alkaline Phosphatase 144 H Troponin T High Sens 142 H* D Troponin T Hi Sens 2 Hr 127 H* NT pro BNP II 1180 H Total Protein 7.1 Albumin 4.1 Globulin 3.0 Lipase 26 Digoxin 0.76 ABG Data ABG results: ABG 04/01/25 23:05 Specimen Type LAYO Sample Site Not entered O2 % 2.0 VBG pH 7.39 VBG pO2 39 VBG HCO3 24 VBG Total CO2 25 VBG O2 Sat (Calc) 73 H VBG Base Excess -1 POC Mix VBG pCO2 Pt Tmp 39.8 L O2 Delivery Device Cannula Radiography Chest X-Ray - ED: 1 View, Read by ED Physician, Read by Radiologist and CHF Diagnostic Testing: Clinical Impression(s) from Imaging Studies Chest X-Ray 04/01/25 20:21 IMPRESSION: Cardiomegaly with pulmonary edema. No sizable pleural effusion. Reading Location: [facility] Rhythm Strip Rhythm Strip: Sinus Tach Rate: 125 Ectopy: PVC(s) EKG Initial EKG: Attestation: I personally reviewed and interpreted this EKG as follows: Comments: Sinus tachycardia at a rate of 125 bpm with PVCs and occasional paced complexes. Nonspecific interventricular conduction delay present Relatively diffuse T wave inversions consistent with a strain pattern. Compared to prior EKG patient now has T wave inversions in inferior leads as well as leads V3 4 through V6 Prior EKG tracings: available for review Prior: Changed Follow-up EKG: Attestation: I personally reviewed and interpreted this EKG as follows: Interpretation: Paced Comments: Atrial sensed ventricular paced rhythm Reversal T wave inversions compared to prior EKG Rate of 96 bpm Management Discussion w/another healthcare provider: Hospitalist Discharge Plan Triage Chief Complaint: Chest Pain ED Provider: Mago Jang Dx/Rx/DC Orders Clinical Impression: Acute non-ST elevation myocardial infarction (NSTEMI), Congestive heart failure, CAD (coronary artery disease), Chest pain Prescriptions: No Action omega-3 fatty acids [Fish Oil Concentrate] 1,000 mg capsule 2,000 mg PO DAILY (DME) OneTouch Ultra Test Strip See Rx Instructions .Route Qty: 100 12RF Rx Instructions: As directed (DME) lancets [E-Z Ject Lancets] 30 gauge misc See Rx Instructions .Route Qty: 100 3RF Rx Instructions: As directed digoxin 125 mcg (0.125 mg) tablet 125 mcg PO DAILY Qty: 30 12RF furosemide 20 mg tablet 20 mg PO DAILY PRN (Reason: Swelling) Qty: 30 12RF glimepiride 4 mg tablet 4 mg PO QAM Qty: 30 12RF Rx Instructions: administer with breakfast losartan 50 mg tablet 50 mg PO DAILY Qty: 30 12RF metformin 850 mg tablet 850 mg PO BID Qty: 60 12RF metoprolol succinate 100 mg tablet extended release 24 hr 100 mg PO DAILY Qty: 30 12RF nitroglycerin 0.4 mg tablet, sublingual 0.4 mg SUBLINGUAL Q5-15M PRN (Reason: chest pain) Qty: 30 12RF Rx Instructions: until response; do not exceed 3 doses per episode omeprazole 40 mg capsule,delayed release(DR/EC) 40 mg PO DAILY PRN (Reason: GERD) Qty: 30 12RF pioglitazone 45 mg tablet 45 mg PO QDAY Qty: 30 12RF Ozempic 0.25 mg or 0.5 mg (2 mg/3 mL) pen injector 0.5 mg subcut QWEEK Qty: 3 6RF Primary Care Provider: Naima Garcia NP Referrals: Naima Garcia NP, [facility] [Primary Care Provider] - Print Language: Israeli What to do if you have Problems For any increased pain, shortness of breath, bleeding, nausea or vomiting, chestpain, or any unexpected problems, contact your Primary Care Provider. Call [facility] ([phone]) or report to the closest Emergency Room. Call 911 if necessary. 04/02/256 <Electronically signed by Mago Jang DO> Cosigner Signature (if applicable): CC: [facility]ERCISE [facility]ER-Rangel Garcia ~ Signed [facility] Work Phone: [phone] Discharge summary [facility] Medical Records Department [address] [place] [address] Emergency Department Summary 04/01/25 MR#: [id number] Acct: [id number] Name: EAMON HUSTON Rep #:[id number] : 1960 64 From: Mago Danielson PCP: ESTEBAN Castellanos Status:REG ER Location: ED HPI History of Present Illness Chief Complaint: Chest Pain Informant: patient Narrative Narrative: Patient is a 64-year-old female with history of coronary artery disease (status post stents), congestive heart failure, atrial fibrillation (not on anticoagulation), hypertension and poorly controlled type 2 diabetes mellitus presenting with chest pressure that radiates to her back and shortness ofbreath. Also reports a cough productive of sputum. Patient states has been having the symptoms for 2 to 3 days. States they are intermittent. She went and saw family practice yesterday for the symptoms and had outpatient labs drawnincluding a troponin, CBC, CMP, troponin, CRP and A1c as well as TSH. Lab work was remarkable for an elevated troponin T of 153 and patient was contacted todayto come to the emergency room because they are worried she was having a heart attack. Patient states she was not having any chest pain and that she was cleaning her house until he told her about her symptoms and then she started having chest pain again. She denies any swelling of her legs. Her A1c was alsoelevated at 12 and her bicarb was low at 19 with a glucose of 242 but a normal anion gap (15). Patient denies any ripping or tearing sensation. Denies any recent medication changes. Denies any fever or chills but states she feels warm right now. [facility] Medical History ESBL (extended spectrum beta-lactamase) producing bacteria infection Neuropathy Myocardial infarct GERD (gastroesophageal reflux disease) Diabetes type 2, uncontrolled Hypertension Pacemaker Cardiac defibrillator in place Home Medications ?Medication ?Instructions ?Recorded ?Last Taken ?Type omega-3 fatty acids 1,000 mg 2,000 mg PO DAILY 9 Unknown History capsule (Fish Oil Concentrate) blood sugar diagnostic (OneTouch #100 ea 12/21/23 Unkn own Rx Ultra Test strips) lancets 30 gauge (E-Z Ject Lancets) #100 ea 12/21/23 U nknown Rx digoxin 125 mcg (0.125 mg) tablet 125 mcg PO DAILY #30 tabs 03/20/25 Unknown Rx furosemide 20 mg tablet 20 mg PO DAILY PRN Swelling #30 03/20/25 Unknown Rx tabs glimepiride 4 mg tablet 4 mg PO QAM #30 tabs 5 Unknown Rx losartan 50 mg tablet 50 mg PO DAILY #30 tabs 02/23 04/17 Unknown Rx metformin 850 mg tablet 850 mg PO BID #60 tabs 03/20 Unknown Rx metoprolol succinate 100 mg 100 mg PO DAILY #30 tabs 0 03/20/25 Unknown Rx tablet,extended release 24 hr nitroglycerin 0.4 mg sublingual 0.4 mg sublingual Q5-1 5M PRN chest 03/20/25 Unknown Rx tablet pain #30 tabs omeprazole 40 mg capsule,delayed 40 mg PO DAILY PRN GE RD #30 caps 03/20/25 Unknown Rx release pioglitazone 45 mg tablet 45 mg PO QDAY #30 tabs 03/20 Unknown Rx semaglutide 0.25 mg or 0.5 mg (2 0.5 mg (0.736 mL) sub cut QWEEK 03/20/25 Unknown Rx mg/3 mL) subcutaneous pen injector diabetes #3 mL (Ozempic) Allergy/AdvReac Type Severity Reaction Status Date / Time sitagliptin (From ) Allergy Severe Rash Verified 04/01/25 20:10 Bunacvb-TND-KnB Reductase Allergy Intermediate cramps Verified 04/01/25 20:10 Inhibitor (Vznakei-Kdn-Xru Reductase Inhibitor) dapagliflozin (From [facility]) AdvReac Severe yeast Verified 04/01/25 20:10 Family History Sister Breast cancer Diabetes Thyroid disorder Mother CVA (cerebral vascular accident) Diabetes Heart disease Myocardial infarction Father Heart disease Myocardial infarction Other CAD (coronary artery disease) Surgical History H/O tubal ligation H/O heart artery stent Social History Smoking Status: Never smoker ROS ROS ED Constitutional Constitutional ED: Reports sweats; Denies chills or fever(s) Cardiovascular Cardiovascular: Reports as per HPI, chest pain, palpitations and racing heartbeat Respiratory/Chest Respiratory/Chest: Reports cough, dyspnea and sputum Gastrointestinal Gastrointestinal: Denies abdominal pain, diarrhea, nausea or vomiting Musculoskeletal Musculoskeletal: Reports back pain; Denies arthralgias or myalgias Integumentary Denies rash Neurologic Neurologic: Denies paresthesias or weakness Psychiatric Psychiatric: Reports anxiety Hematologic/Lymphatic Hematologic/Lymphatic: Denies easy bleeding or easy bruising EXAM Physical Exam Const Vital Signs: 04/01/25 20:10 04/01/25 20:25 04/01/25 20:36 Temperature 98 F Temperature Source Oral Pulse Rate 127 H Respiratory Rate 33 H Blood Pressure 145/94 H 147/136 H Blood Pressure Mean 111 Pulse Ox 98 Oxygen Delivery Method Room Air Oxygen Flow Rate (L/min) 04/01/25 20:40 04/01/25 20:46 04/01/25 21:10 Temperature Temperature Source Pulse Rate 117 H 111 H Respiratory Rate 29 H 28 H Blood Pressure 137/73 H 117/95 H Blood Pressure Mean 94 102 Pulse Ox 89 94 96 Oxygen Delivery Method Room Air Nasal Cannula Nasal Cannula Oxygen Flow Rate (L/min) 2 2 04/01/25 21:30 04/01/25 22:09 04/01/25 22:30 Temperature Temperature Source Pulse Rate 109 H 108 H 111 H Respiratory Rate 31 H 31 H Blood Pressure 107/72 121/75 H 114/60 Blood Pressure Mean 83 90 78 Pulse Ox 96 95 98 Oxygen Delivery Method Nasal Cannula Nasal Cannula Oxygen Flow Rate (L/min) 2 2 04/01/25 23:00 04/01/25 23:30 04/01/25 23:42 Temperature 98 F Temperature Source Pulse Rate 70 92 92 Respiratory Rate 23 H Blood Pressure 120/70 110/82 H 110/82 H Blood Pressure Mean 86 91 91 Pulse Ox 98 96 96 Oxygen Delivery Method Oxygen Flow Rate (L/min) Positive well nourished and well developed Constitutional Narrative: Mildly ill-appearing General Appearance ED: well developed; Negative for pallor HEENT normocephalic Eyes PERRL Neck supple and no JVD Chest Wall inspection of chest normal and palpation of chest normal Resp normal respiratory effort and clear to auscultation bilaterally Cardio regular rhythm and no murmurs Rate: tachycardic Peripheral Pulses: pulses 2+ throughout GI normal to inspection, nondistended, normoactive bowel sounds, soft to palpation and non-tender Extremity normal to inspection Neuro oriented x3 Sensorium / Orientation: awake Motor Exam: Negative for general weakness Psych mental status grossly normal Mood & Affect: anxious Skin no rashes or lesions noted and no wounds General Skin Exam: Negative for jaundice or pallor Heart Score History: Moderately Suspicious ECG: Nonspecific Repolarization Age: >45 - <65 years Risk Factors: >/= 3 Risk Factors or History of CAD Troponin: >/=3 x Normal Limit Score: 7 MDM MDM MDM Narrative Medical decision making narrative: Patient is evaluated with intermittent chest pain and some associated shortness of breath for the past 2 to 3 days. Had outpatient labs because she was seen for palpitations and her troponin was elevated and she was sent to the ER. She states after finding this news her chest pain did return. Upon arrival patient is mildly hypertensive, tachypneic and tachycardic. She is placed on oxygen for comfort. Cardiac workup is initiated. EKG is not consistent with STEMI but high concern for ACS given elevated outpatient troponin with chest pain. Patient is given nitroglycerin with improvement of her pain. Is given aspirin in the emergency room. Initially started on gentle IV fluids as she did not clinically appear fluid overloaded however her chest x-ray shows pulmonary vascular congestion and BNP added on which is abated. Will diurese thepatient. High-sensitivity troponin is stable and mildly downtrending. Patient's tachycardia improves. VBG is added on given her tachypnea and to ensure that she is not hypercapnic or have an underlying metabolic acidosis. This is shows a normal pH and a mildly low [id number] is nonspecific. Case discussed with hospitalist for admission and further cardiac evaluation. Will treat patient asNSTEMI and started on a heparin drip after discussion withhospitalist. Patient agreeable with admission. Patient's rate is not below 100. Repeat EKG does show improvement of T wave inversions and is now fully paced. Lab Data Attestation: I reviewed the patient's lab results. Labs: Laboratory Results - last 24 hr 04/01/25 04/01/25 20:14 22:26 WBC 10.0 RBC 4.99 Hgb 15.3 H Hct 46.6 MCV 93.4 MCH 30.7 MCHC 32.8 RDW Std Deviation 48.3 H RDW Coeff of Cally 14.2 Plt Count 242 MPV 12.9 H Immature Gran % (Auto) 0.200 Neut % (Auto) 40.6 L Lymph % (Auto) 47.8 H Crosby % (Auto) 9.2 Eos % (Auto) 1.3 Baso % (Auto) 0.9 Absolute Neuts (auto) 4.1 Absolute Lymphs (auto) 4.77 H Nucleated RBC % 0 D-Dimer Quant (PE/DVT) 0.37 Sodium 134 Potassium 4.3 Chloride 100 Carbon Dioxide 19.2 L Anion Gap 15 BUN 13 Creatinine 0.67 L Estim Creat Clear Calc 100.16 Est GFR (MDRD) Non-Af 99 BUN/Creatinine Ratio 19.3 Glucose 337 H Calcium 9.8 Total Bilirubin 0.57 Direct Bilirubin 0.27 AST 85 H ALT 83 H Alkaline Phosphatase 144 H Troponin T High Sens 142 H* D Troponin T Hi Sens 2 Hr 127 H* NT pro BNP II 1180 H Total Protein 7.1 Albumin 4.1 Globulin 3.0 Lipase 26 Digoxin 0.76 ABG Data ABG results: ABG 04/01/25 23:05 Specimen Type LAYO Sample Site Not entered O2 % 2.0 VBG pH 7.39 VBG pO2 39 VBG HCO3 24 VBG Total CO2 25 VBG O2 Sat (Calc) 73 H VBG Base Excess -1 POC Mix VBG pCO2 Pt Tmp 39.8 L O2 Delivery Device Cannula Radiography Chest X-Ray - ED: 1 View, Read by ED Physician, Read by Radiologist and CHF Diagnostic Testing: Clinical Impression(s) from Imaging Studies Chest X-Ray 04/01/25 20:21 IMPRESSION: Cardiomegaly with pulmonary edema. No sizable pleural effusion. Reading Location: [facility] Rhythm Strip Rhythm Strip: Sinus Tach Rate: 125 Ectopy: PVC(s) EKG Initial EKG: Attestation: I personally reviewed and interpreted this EKG as follows: Comments: Sinus tachycardia at a rate of 125 bpm with PVCs and occasional paced complexes. Nonspecific interventricular conduction delay present Relatively diffuse T wave inversions consistent with a strain pattern. Compared to prior EKG patient now has T wave inversions in inferior leads as well as leads V3 4 through V6 Prior EKG tracings: available for review Prior: Changed Follow-up EKG: Attestation: I personally reviewed and interpreted this EKG as follows: Interpretation: Paced Comments: Atrial sensed ventricular paced rhythm Reversal T wave inversions compared to prior EKG Rate of 96 bpm Management Discussion w/another healthcare provider: Hospitalist Discharge Plan Triage Chief Complaint: Chest Pain ED Provider: Mago Jang Dx/Rx/DC Orders Clinical Impression: Acute non-ST elevation myocardial infarction (NSTEMI), Congestive heart failure, CAD (coronary artery disease), Chest pain Prescriptions: No Action omega-3 fatty acids [Fish Oil Concentrate] 1,000 mg capsule 2,000 mg PO DAILY (DME) OneTouch Ultra Test Strip See Rx Instructions .Route Qty: 100 12RF Rx Instructions: As directed (DME) lancets [E-Z Ject Lancets] 30 gauge misc See Rx Instructions .Route Qty: 100 3RF Rx Instructions: As directed digoxin 125 mcg (0.125 mg) tablet 125 mcg PO DAILY Qty: 30 12RF furosemide 20 mg tablet 20 mg PO DAILY PRN (Reason: Swelling) Qty: 30 12RF glimepiride 4 mg tablet 4 mg PO QAM Qty: 30 12RF Rx Instructions: administer with breakfast losartan 50 mg tablet 50 mg PO DAILY Qty: 30 12RF metformin 850 mg tablet 850 mg PO BID Qty: 60 12RF metoprolol succinate 100 mg tablet extended release 24 hr 100 mg PO DAILY Qty: 30 12RF nitroglycerin 0.4 mg tablet, sublingual 0.4 mg SUBLINGUAL Q5-15M PRN (Reason: chest pain) Qty: 30 12RF Rx Instructions: until response; do not exceed 3 doses per episode omeprazole 40 mg capsule,delayed release(DR/EC) 40 mg PO DAILY PRN (Reason: GERD) Qty: 30 12RF pioglitazone 45 mg tablet 45 mg PO QDAY Qty: 30 12RF Ozempic 0.25 mg or 0.5 mg (2 mg/3 mL) pen injector 0.5 mg subcut QWEEK Qty: 3 6RF Primary Care Provider: Naima Garcia NP Referrals: Naima Garcia NP, [facility] [Primary Care Provider] - Print Language: Israeli What to do if you have Problems For any increased pain, shortness of breath, bleeding, nausea or vomiting, chestpain, or any unexpected problems, contact your Primary Care Provider. Call [facility] ([phone]) or report tothe closest Emergency Room. Call 911 if necessary. 04/02/256 Cosigner Signature (if applicable): CC: [facility] Naima Garcia ~ Signed [facility]07-09-2025 Radiology Diagnostic study note [facility] Imaging Services [address], [place] [address] Chest 1 View (Portable) MR#: [id number] Acct: [id number] Name: EAMON HUSTON Rep #: [id number] : 1960 F 64 From: Pedro Langford MD PCP: ESTEBAN Castellanos Status: REG ER Study:Chest 1 View (Portable) Date of Exam: 04/01/25 Exam# [id number] Ordering Dr: Rangel Jang DO PROCEDURE: CHEST 1 VIEW (PORTABLE) 04/01/2025 REASON FOR EXAM: CHEST PAIN TECHNIQUE: Frontal view of the chest. COMPARISON: 03/20/2020 FINDINGS: Devices: Left chest wall multilead ICD appears appropriately positioned. Lungs/Pleura: Diffuse reticular and hazy perihilar airspace opacities compatiblewith interstitial and alveolar edema. No sizable pleural effusions. No pneumothorax. Heart/Mediastinum: Cardiomegaly. Vascular congestion. Aortic arch calcification. Bones/Soft tissues: Mild degenerative changes of the spine. RAD/Chest 1 View (Portable) IMPRESSION: Cardiomegaly with pulmonary edema. No sizable pleural effusion. Reading Location: [id number] CC: ESTEBAN Garcia; Dr. Mago Jang, DO ~ Php Mysql Web Developer: Signed [facility]04-04-2025 Evaluation note* Diagnosis Onset Date Resolution Status Admit Date Boil of trunk acute December 26, 2024 2:55pm Nonhealing nonsurgical wound with fat layer exposed acute December 2:55pm Diabetes type 2, uncontrolled chroni c December 26, 2024 2:55pm Diabetes type 2, uncontrolled chroni c March 20, 2025 4:04pm GERD (gastroesophageal reflu x disease) chronic March 20, 2025 4:04pm Hypertension chronic March 20 025 4:04pm Heart palpitations acute March 312024 5:12pm Hyperglycemia acute March 31, 025 5:12pm CAD (coronary artery disease) inacti ve March 31, 2025 5:12pm HFrEF (heart failure with reduced ejection fraction) acute April 02, 2025 12:02am Acute non-ST elevation myocardial infarction (NSTEMI) inactive April 02, 2025 12:02am CAD (coronary artery disease) inacti ve April 02, 2025 12:02am Congestive heart failure inactive April 02, 2025 12:02am Biventricular automatic implantable cardioverter defibrillator in situ acute April 02, 2025 10:51am Diabetes type 2, uncontrolled chroni c April 06, 2025 5:44pm Acute non-ST elevation myocardial infarction (NSTEMI) inactive April 06, 2025 5:44pm Biventricular automatic implantable cardioverter defibrillator in situ acute April 13, 2025 1:53pm Dyslipidemia acute April 13 025 1:53pm HFrEF (heart failure with reduced ejection fraction) acute April 13, 2025 1:53pm Hypertension chronic April 13 025 1:53pm Stented coronary artery April 03, 2025 chronic April 13, 2025 1:53pm [facility] Work Phone: 1(129) 813-883903-28-2025 Evaluation note* Diagnosis Onset Date Resolution Status Admit Date Boil of trunk acute December 19, 2024 4:10pm Infected wound acute November 4:10pm Boil of trunk acute December 26, 2024 2:55pm Nonhealing nonsurgical wound with fat layer exposed acute December 2:55pm Diabetes type 2, uncontrolled chroni c December 26, 2024 2:55pm Diabetes type 2, uncontrolled chroni c March 20, 2025 4:04pm GERD (gastroesophageal reflu x disease) chronic March 20, 2025 4:04pm Hypertension chronic March 20, 025 4:04pm Heart palpitations acute March 312024 5:12pm Hyperglycemia acute March 31 025 5:12pm CAD (coronary artery disease) inacti ve March 31, 2025 5:12pm HFrEF (heart failure with reduced ejection fraction) acute April 02, 2025 12:02am Acute non-ST elevation myocardial infarction (NSTEMI) inactive [facility] 2024 12:02am CAD (coronary artery disease) inacti ve April 02, 2025 12:02am Congestive heart failure inactive April 02, 2025 12:02am Biventricular automatic implantable cardioverter defibrillator in situ acute April 02, 2025 10:51am Diabetes type 2, uncontrolled chroni c April 06, 2025 5:44pm Acute non-ST elevation myocardial infarction (NSTEMI) inactive [facility] 2024 5:44pm HFrEF (heart failure with reduced ejection fraction) acute April 13, 2025 1:53pm [facility] Work Phone: 1(866) 286-556603-21-2025 Evaluation note* Diagnosis Onset Date Resolution Status Admit Date Abscess inactive December 12 2:57pm Boil of trunk acute December 19, 2024 4:10pm Infected wound acute November 4:10pm Boil of trunk acute December 26, 2024 2:55pm Nonhealing nonsurgical wound with fat layer exposed acute December 2:55pm Diabetes type 2, uncontrolled chroni c December 26, 2024 2:55pm Diabetes type 2, uncontrolled chroni c March 20, 2025 4:04pm GERD (gastroesophageal reflu x disease) chronic March 20, 2025 4:04pm Hypertension chronic March 20 025 4:04pm Heart palpitations acute March 312024 5:12pm Hyperglycemia acute March 31 025 5:12pm CAD (coronary artery disease) inacti ve March 31, 2025 5:12pm HFrEF (heart failure with reduced ejection fraction) acute April 02, 2025 12:02am Acute non-ST elevation myocardial infarction (NSTEMI) inactive [facility] 2024 12:02am CAD (coronary artery disease) inacti ve April 02, 2025 12:02am Congestive heart failure inactive April 02, 2025 12:02am Biventricular automatic implantable cardioverter defibrillator in situ acute April 02, 2025 10:51am Diabetes type 2, uncontrolled chroni c April 06, 2025 5:44pm Acute non-ST elevation myocardial infarction (NSTEMI) inactive [facility] 2024 5:44pm [facility] Work Phone: 1(493) 204-449903-18-2025 Evaluation note* Diagnosis Onset Date Resolution Status Admit Date Boil of trunk acute December 09, 2024 4:48pm Hyperglycemia acute December 09, 2024 4:48pm Yeast infection involving th e vagina and surrounding area acute 2024 4:48pm Diabetes type 2, uncontrolled chroni c December 09, 2024 4:48pm Abscess inactive December 12 2:57pm Boil of trunk acute December 19, 2024 4:10pm Infected wound acute November 4:10pm Boil of trunk acute December 26, 2024 2:55pm Nonhealing nonsurgical wound with fat layer exposed acute December 2:55pm Diabetes type 2, uncontrolled chroni c December 26, 2024 2:55pm Diabetes type 2, uncontrolled chroni c March 20, 2025 4:04pm GERD (gastroesophageal reflu x disease) chronic March 20, 2025 4:04pm Hypertension chronic March 20 025 4:04pm [facility] Work Phone: 1(796) 380-462003-18-2025 Evaluation note* Diagnosis Onset Date Resolution Status Admit Date Boil of trunk acute December 09, 2024 4:48pm Hyperglycemia acute December 09, 2024 4:48pm Yeast infection involving th e vagina and surrounding area acute Km h 2024 4:48pm Diabetes type 2, uncontrolled chroni c December 09, 2024 4:48pm Abscess inactive December 12 2:57pm Boil of trunk acute December 19, 2024 4:10pm Infected wound acute November 4:10pm Boil of trunk acute December 26, 2024 2:55pm Nonhealing nonsurgical wound with fat layer exposed acute December 2:55pm Diabetes type 2, uncontrolled chroni c December 26, 2024 2:55pm Diabetes type 2, uncontrolled chroni c March 20, 2025 4:04pm GERD (gastroesophageal reflu x disease) chronic March 20, 2025 4:04pm Hypertension chronic March 20, 2 025 4:04pm Heart palpitations acute March 312024 5:12pm Hyperglycemia acute March 31, 2 025 5:12pm CAD (coronary artery disease) chroni c March 31, 2025 5:12pm [facility] Work Phone: 1(417) 139-724403-18-2025 Evaluation note* Diagnosis Onset Date Resolution Status Admit Date Boil of trunk acute December 09, 2024 4:48pm Hyperglycemia acute December 09, 2024 4:48pm Yeast infection involving th e vagina and surrounding area acute Km h 2024 4:48pm Diabetes type 2, uncontrolled chroni c December 09, 2024 4:48pm Abscess inactive December 12 2:57pm Boil of trunk acute December 19, 2024 4:10pm Infected wound acute November 4:10pm Boil of trunk acute December 26, 2024 2:55pm Nonhealing nonsurgical wound with fat layer exposed acute December 2:55pm Diabetes type 2, uncontrolled chroni c December 26, 2024 2:55pm Diabetes type 2, uncontrolled chroni c March 20, 2025 4:04pm GERD (gastroesophageal reflu x disease) chronic March 20, 2025 4:04pm Hypertension chronic March 20, 2 025 4:04pm Heart palpitations acute March 312024 5:12pm Hyperglycemia acute March 31, 2 025 5:12pm CAD (coronary artery disease) chroni c March 31, 2025 5:12pm Acute non-ST elevation myocardial infarction (NSTEMI) acute 2024 12:02am CAD (coronary artery disease) chroni c April 02, 2025 12:02am Congestive heart failure chronic April 02, 2025 12:02am Biventricular automatic implantable cardioverter defibrillator in situ acute April 02, 2025 10:51am [facility] Work Phone: 1(229) 239-136103-18-2025 Evaluation note* Diagnosis Onset Date Resolution Status Admit Date Boil of trunk acute December 09, 2024 4:48pm Hyperglycemia acute December 09, 2024 4:48pm Yeast infection involving th e vagina and surrounding area acute Km 2024 4:48pm Diabetes type 2, uncontrolled chroni c December 09, 2024 4:48pm Abscess inactive December 12 2:57pm Boil of trunk acute December 19, 2024 4:10pm Infected wound acute November 4:10pm Boil of trunk acute December 26, 2024 2:55pm Nonhealing nonsurgical wound with fat layer exposed acute December 2:55pm Diabetes type 2, uncontrolled chroni c December 26, 2024 2:55pm Diabetes type 2, uncontrolled chroni c March 20, 2025 4:04pm GERD (gastroesophageal reflu x disease) chronic March 20, 2025 4:04pm Hypertension chronic March 20, 2 025 4:04pm Heart palpitations acute March 312024 5:12pm Hyperglycemia acute March 31, 2 025 5:12pm CAD (coronary artery disease) chroni c March 31, 2025 5:12pm Acute non-ST elevation myocardial infarction (NSTEMI) acute 2024 12:02am HFrEF (heart failure with reduced ejection fraction) acute April 02, 2025 12:02am CAD (coronary artery disease) chroni c April 02, 2025 12:02am Congestive heart failure chronic April 02, 2025 12:02am Biventricular automatic implantable cardioverter defibrillator in situ acute April 02, 2025 10:51am [facility] Work Phone: 1(263) 281-341103-18-2025 Evaluation note* Diagnosis Onset Date Resolution Status Admit Date Boil of trunk acute December 09, 2024 4:48pm Hyperglycemia acute December 09, 2024 4:48pm Yeast infection involving th e vagina and surrounding area acute Km 2024 4:48pm Diabetes type 2, uncontrolled chroni c December 09, 2024 4:48pm Abscess inactive December 12 2:57pm Boil of trunk acute December 19, 2024 4:10pm Infected wound acute November 4:10pm Boil of trunk acute December 26, 2024 2:55pm Nonhealing nonsurgical wound with fat layer exposed acute December 2:55pm Diabetes type 2, uncontrolled chroni c December 26, 2024 2:55pm Diabetes type 2, uncontrolled chroni c March 20, 2025 4:04pm GERD (gastroesophageal reflu x disease) chronic March 20, 2025 4:04pm Hypertension chronic March 20, 025 4:04pm Heart palpitations acute March 312024 5:12pm Hyperglycemia acute March 31, 025 5:12pm CAD (coronary artery disease) chroni c March 31, 2025 5:12pm Acute non-ST elevation myocardial infarction (NSTEMI) acute J 2024 12:02am HFrEF (heart failure with reduced ejection fraction) acute April 02, 2025 12:02am CAD (coronary artery disease) chroni c April 02, 2025 12:02am Congestive heart failure chronic April 02, 2025 12:02am Biventricular automatic implantable cardioverter defibrillator in situ acute April 02, 2025 10:51am Acute non-ST elevation myocardial infarction (NSTEMI) acute J [place]2024 5:44pm Diabetes type 2, uncontrolled chroni c April 06, 2025 5:44pm [facility] Work Phone: 1(805) 671-218301-10-2025 Evaluation note* Diagnosis Onset Date Resolution Status [...] th e vagina and surrounding area acute Km h 2024 4:48pm Diabetes type 2, uncontrolled chroni c December 09, 2024 4:48pm [facility] Work Phone: 1(440) 966-273901-10-2025 Evaluation note* Diagnosis Onset Date Resolution Status [...] th e vagina and surrounding area acute Km h 2024 4:48pm Diabetes type 2, uncontrolled chroni c December 09, 2024 4:48pm Abscess acute December 12 2:57pm [facility] Work Phone: 1(161) 470-374604-01-2024 History of Present illness Narrative* Zainab Albrecht RT(R) - 12/24/2023 11:00 AM EDT Radiology Service Progress Note PATIENT NAME: Eamon Huston DATE OF SERVICE: December 24, 2023 [...] PATIENT PRESENTS WITH AN IMPLANTABLE OR ATTACHED SOLDERING MACHINE FEEDER: No RADIOLOGY DEPARTMENT: General X-ray: Exam(s) Completed: Lower Extremity X- Ray(s): Foot, Left PERIPHERAL IV DATA: Not applicable SIGNED BY: RT Farhana(R) December 24, 2023 11:08 AM [facility] NoteHNO ID: [id number] Author: ZAINAB ALBRECHT RT(R) Service: ? Author Type: Technologist Type: Progress Notes Filed: 12/24/2023 11:08 Note Text: Radiology Service Progress Note PATIENT NAME: Eamon Huston DATE OF SERVICE: December 24, 2023 [...] PATIENT PRESENTS WITH AN IMPLANTABLE OR ATTACHED SOLDERING MACHINE FEEDER: No RADIOLOGY DEPARTMENT: General X-ray: Exam(s) Completed: Lower Extremity X-Ray(s): Foot, Left PERIPHERAL IV DATA: Not applicable SIGNED BY: RT Farhana(R) December 24, 2023 11:08 [facility]01-05-2022 NoteHNO ID: [id number] Author: Narinder Parsons PA-C Service: ? Author Type: Physician Hand Engraver Type: Progress Notes Filed: 09/28/2021 7:15 PM Note Text: Subjective HPI HPI Eamon Huston is a 61 year old female [...] plan; her will drive her over to [facility] at this time. Report sent over via ER passport. [facility] Chronic HFrEF (heart failure with reduced ejection fraction) ([facility]) documented in this encounter [facility] Work Phone: Evaluation note* Diagnosis Onset Date Resolution Status Atrial fibrillation and flutter acute Congestive heart failure chr onic Diabetes type 2, uncontrolled chronic GERD (gastroesophageal reflux disease) chronic Hypertension [facility] Work Phone: Evaluation note* Diagnosis Onset Date Resolution Status Atrial fibrillation and flutter acute Diabetes type 2, uncontrolled chronic Hypertension [facility] Work Phone: Evaluation note* Diagnosis Onset Date Resolution Status Bone cyst of left foot acute Eructation acute Diabetes type 2, uncontrolled [facility] Work Phone: Hospital Discharge instructions* Instructions* Shantelle Flores APRN - [employer] - 08/16/2021 Internal Cardioverter Defibrillator [place] [...] in CPR. Call the Device [facility] at [phone] if you have any questions regarding your incision, defibrillator, or follow-up appointments. Call the Device Clinic at [phone] if you have signs of a rapid heart rhythm, if you hear a beeping tone or vibration from your defibrillator. Call the Device Clinic at [phone] or your physician if you experience a shock. Be calm and liedown if you are alone. If you feel as though you are going to pass out call [phone]. No lifting, pulling, pushing more than 5 [...] be gone by tomorrow. documented in this [facility] Work Phone: [facility] Work Phone[facility] Discharge instructions Additional Instructions [...] through a diabetic diet. Take antibiotic as directed.[facility] Work Phone: Hospital Discharge instructionsAdditional Instructions ADDITIONAL DISCHARGE INSTRUCTIONS/FOLLOW-UP: Acute NSTEMI (heart attack) w/ CAD s/p prior PCI history requiring PCI intervention during admission with Acute on Chronic Mild HFrEF Exacerbation: --Cardiac troponin enzyme trend series elevated but trended downward 152 > 142 > 127 > 132. --ED presentation EKG with sinus tachycardia with frequent PAC/PVC with nonspecific interventricular block and T wave abnormalities. --NT-proBNP 1180. --ED Chest x-ray showed cardiomegaly with vascular congestion. --FLP with triglyceride 316, total cholesterol 220, LDL 125, VLDL 63, HDL 32 --04/02/25 ECHO w/ Severe global LV systolic dysfunction, LVEF 25%, focal and global wall motion abnormality, evidence diastolic dysfunction, moderate pulmonary hypertension, severely dilated LV with most recent records prior to this from clinic seeing with an echocardiogram in 2017 with EF 35% at that time. --04/02/25 Cardiac catheterization with significantly stenosed circumflex with MORGAN/PCI performed with also stenosis in the LAD; however, not able to perform PCI secondary to radial approach with plan for medical management. --Per cardiology direction you have been initiated on continue baby aspirin, Plavix Zetia, mid dose Crestor which although it is a statin therapy can often have less side effects than others with preference for at least a trial per cardiology, low-dose spironolactone in addition to continued home dosing of metoprolol and losartan. Given the addition of spironolactone please have follow-up blood pressure check with primary care physician and if your systolic blood pressure is less than 110 preferentially hold temporarily the spironolactone until follow-up with cardiology but please notify their office of these results when it occurs. --Please have repeat basic metabolic panel at follow-up with your primary care physician. --Please perform daily weight checks using the same machine and if your weight increases by > 5 lbs please notify your cardiology office immediately to review possible diuretic change options. Diabetes mellitus type II, poorly controlled with hyperglycemia: --During the admission you had notably elevated blood sugars with poorly controlled underlying diabetes with recent hemoglobin A1c noted to be 11.7%. At this time during admission you had significantly elevated blood sugars therefore we recommend you continue the oral diabetic regimen but at the same time given the levels and your presentation with worsening coronary disease requiring percutaneous intervention you have been initiated on once daily long- acting in addition to recommended insulin sliding scale. We strongly encourage continued diet and lifestyle changes in addition to these medication changes. We have referred you also to endocrinology. CARDIOLOGY PCI POST-CATHETERIZATION INSTRUCTIONS: Lifting: Must be less than 5 lbs for 5 days, No restrictions after 14 days Shower: Yes Climb stairs: Yes Bathing in tub or submerged water: No, until cleared per Cardiology at follow-up (call office if any concerns [phone] and may leave voicemail if after hours). Walkin minutes 3 times daily, increase as tolerated. Driving: Resume in 7 days Sexual activity: Resume in 14 days Regular activity: Resume 14 days ADDITIONAL: --Your vitamin D level was low end normal range. We have started you on a daily oral vitamin D supplement. Please have repeat levels outpatient.[facility] Work Phone: Hospital Discharge instructionsAmbulatory Orders* Phase II, Outpatient Cardiac Rehab Location: None Selected [facility] Work Phone: Reason for referral (narrative)No reason for referral information availableWMadison Health Work Phone: Summary Purpose Family History Relationship Condition Age at Onset Recorded Date/T lenora Not Specified Coronary artery disease Unknown sister Malignant neoplasm of breast Unknown Diabetes mellitus Unknown Disorder of thyroid Unknown mother Cerebrovascular accident (CVA) Unknown Cardiac disease Unknown Myocardial infarction Unknown father Cardiac disease Unknown Relationship Condition Age at Onset Recorded Date/T lenora Not Specified Coronary artery disease Unknown Acute non-ST elevati on myocardial infarction (NSTEMI) Unknown sister Malignant neoplasm of breast Unknown Diabetes mellitus Unknown Disorder of thyroid Unknown mother Cerebrovascular accident (CVA) Unknown Cardiac disease Unknown Myocardial infarction Unknown father Cardiac disease Unknown Advance Directives Documents on File Type Date Recorded Patient Wet Cotton Feeder Expl anation ACP-Advance Directive ACP-Power of Manual Equipment Mechanic Latest Code Status on File Code Status Date Activated Date Inactivated Comments Full Code 08/16/2021 6:38 AM Advance Directive Response Recorded Date/ Time Living Will No September 28 9:54pm Power of Manual Equipment Mechanic No September 28 022 9:54pm Advance Directive Response Recorded Date/ Time Living Will No December 09, 2024 6:41pm Power of Manual Equipment Mechanic No December 09 6:41pm Advance Directive Response Recorded Date/ Time Living Will No December 09, 2024 6:41pm Do you have a Healthcare Power of Manual Equipment Mechanic? No December 09, 2024 6:41pm Advance Directive Response Recorded Date/ Time Living Will No December 09, 2024 6:41pm Do you have a Healthcare Power of Manual Equipment Mechanic? No December 09, 2024 6:41pm Do you have a Healthcare Power of Manual Equipment Mechanic? No April 01, 2025 8:19pm Advance Directive Response Recorded Date/ Time Living Will No December 09, 2024 6:41pm Do you have a Healthcare Power of Manual Equipment Mechanic? No December 09, 2024 6:41pm Do you have a Healthcare Power of Manual Equipment Mechanic? No April 02, 2025 3:33am Advance Directive Response Recorded Date/ Time Do you have a Healthcare Power of Manual Equipment Mechanic? No April 02, 2025 3:33am Advance Directive Response Recorded Date/ Time Do you have a Healthcare Power of Manual Equipment Mechanic? No April 02, 2025 3:33am Do you have a Healthcare Power of Manual Equipment Mechanic? No April 21, 2025 1:52pm Chief Complaint and Reason for Visit Chief [...] trunk December 09, 2024 4:4 8pm Hyperglycemia March 18th, 2025 4:4 8pm Yeast infection involving the vagina [...] 4:48pm Abscess December 12, 2024 2:5 7pm Chief Complaint Admit Date Infected Boil December 09, 2024 4:4 8pm WOUND December 09, 2024 6:2 7pm Diabetes Mellitus Type 2 A1c meds December 12, 2024 2:57pm LABWORK December 12, 2024 10: 06pm Wound Care December 19, 2024 4:1 0pm Wound Care December 26, 2024 2:55 pm Diabetes Mellitus Type 2 A1C/MEDS February 232024 4:04pm Reason for Visit Admit Date Boil of trunk December 09, 2024 4:4 8pm Hyperglycemia December 09, 2024 4:4 8pm Yeast infection involving the vagina and surrounding area December 09, 2024 4:48pm Diabetes type 2, uncontrolled November 4:48pm Abscess December 12, 2024 2:5 7pm Boil of trunk December 19, 2024 4:1 0pm Infected wound December 19, 2024 4:1 0pm Boil of trunk December 26, 2024 2:55 pm Nonhealing nonsurgical wound with fat la abril exposed December 26, 2024 2:55pm Diabetes type 2, uncontrolled December 26, 2024 2:55pm Diabetes type 2, uncontrolled March 20, 2025 4:04pm GERD (gastroesophageal reflux disease) [facility] 2024 4:04pm Hypertension March 20, 2025 4:04 pm Chief Complaint Admit Date Infected Boil December 09, 2024 4:4 8pm WOUND December 09, 2024 6:2 7pm Diabetes Mellitus Type 2 A1c meds December 12, 2024 2:57pm LABWORK December 12, 2024 10: 06pm Wound Care December 19, 2024 4:1 0pm Wound Care December 26, 2024 2:55 pm Diabetes Mellitus Type 2 A1C/MEDS February 232024 4:04pm Heart PALPITATIONS high March 31, 2025 5 :12pm NSTEMI April 02, 2025 12:0 2am Reason for Visit Admit Date Boil of trunk December 09, 2024 4:4 8pm Hyperglycemia December 09, 2024 4:4 8pm Yeast infection involving the vagina and surrounding area December 09, 2024 4:48pm Diabetes type 2, uncontrolled November 4:48pm Abscess December 12, 2024 2:5 7pm Boil of trunk December 19, 2024 4:1 0pm Infected wound December 19, 2024 4:1 0pm Boil of trunk December 26, 2024 2:55 pm Nonhealing nonsurgical wound with fat la abril exposed December 26, 2024 2:55pm Diabetes type 2, uncontrolled December 26, 2024 2:55pm Diabetes type 2, uncontrolled March 20, 2025 4:04pm GERD (gastroesophageal reflux disease) [facility] 2024 4:04pm Hypertension March 20, 2025 4:04 pm Heart palpitations March 31, 2025 5:12p m Hyperglycemia March 31, 2025 5:12p m CAD (coronary artery disease) March 31, 2025 5:12pm Chief Complaint Admit Date Infected Boil December 09, 2024 4:4 8pm WOUND December 09, 2024 6:2 7pm Diabetes Mellitus Type 2 A1c meds December 12, 2024 2:57pm LABWORK December 12, 2024 10: 06pm Wound Care December 19, 2024 4:1 0pm Wound Care December 26, 2024 2:55 pm Diabetes Mellitus Type 2 A1C/MEDS February 232024 4:04pm Heart PALPITATIONS high March 31, 2025 5 :12pm NSTEMI April 02, 2025 12:0 2am NSTEMI April 02, 2025 7:05 am In patient ICD check per MD April 02, 10:51am Reason for Visit Admit Date Boil of trunk December 09, 2024 4:4 8pm Hyperglycemia December 09, 2024 4:4 8pm Yeast infection involving the vagina and surrounding area December 09, 2024 4:48pm Diabetes type 2, uncontrolled November 4:48pm Abscess December 12, 2024 2:5 7pm Boil of trunk December 19, 2024 4:1 0pm Infected wound December 19, 2024 4:1 0pm Boil of trunk December 26, 2024 2:55 pm Nonhealing nonsurgical wound with fat la abril exposed December 26, 2024 2:55pm Diabetes type 2, uncontrolled December 26, 2024 2:55pm Diabetes type 2, uncontrolled March 20, 2025 4:04pm GERD (gastroesophageal reflux disease) [facility] 2024 4:04pm Hypertension March 20, 2025 4:04 pm Heart palpitations March 31, 2025 5:12p m Hyperglycemia March 31, 2025 5:12p m CAD (coronary artery disease) March 31, 2025 5:12pm Acute non-ST elevation myocardial infarc tion (NSTEMI) April 02, 2025 12:02am CAD (coronary artery disease) April 02, 2025 12:02am Congestive heart failure April 02, 2025 12:02am Biventricular automatic impl antable cardioverter defibrillator in situ April 02, 2025 10:51am Reason for Visit Admit Date Boil of trunk December 09, 2024 4:4 8pm Hyperglycemia December 09, 2024 4:4 8pm Yeast infection involving the vagina and surrounding area December 09, 2024 4:48pm Diabetes type 2, uncontrolled November 4:48pm Abscess December 12, 2024 2:5 7pm Boil of trunk December 19, 2024 4:1 0pm Infected wound December 19, 2024 4:1 0pm Boil of trunk December 26, 2024 2:55 pm Nonhealing nonsurgical wound with fat la abril exposed December 26, 2024 2:55pm Diabetes type 2, uncontrolled December 26, 2024 2:55pm Diabetes type 2, uncontrolled March 20, 2025 4:04pm GERD (gastroesophageal reflux disease) J une 2024 4:04pm Hypertension March 20, 2025 4:04 pm Heart palpitations March 31, 2025 5:12p m Hyperglycemia March 31, 2025 5:12p m CAD (coronary artery disease) March 31, 2025 5:12pm Acute non-ST elevation myocardial infarc tion (NSTEMI) April 02, 2025 12:02am HFrEF (heart failure with reduced ejecti on fraction) April 02, 2025 12:02am CAD (coronary artery disease) April 02, 2025 12:02am Congestive heart failure April 02, 2025 12:02am Biventricular automatic impl antable cardioverter defibrillator in situ April 02, 2025 10:51am Chief Complaint Admit Date Infected Boil December 09, 2024 4:4 8pm WOUND December 09, 2024 6:2 7pm Diabetes Mellitus Type 2 A1c meds December 12, 2024 2:57pm LABWORK December 12, 2024 10: 06pm Wound Care December 19, 2024 4:1 0pm Wound Care December 26, 2024 2:55 pm Diabetes Mellitus Type 2 A1C/MEDS February 232024 4:04pm Heart PALPITATIONS high March 31, 2025 5 :12pm NSTEMI April 02, 2025 12:0 2am NSTEMI April 02, 2025 7:05 am In patient ICD check per MD April 02, 2 025 10:51am NSTEMI April 03, 2025 7:07 am Referral Order April 06, 2025 8:13 am Chief Complaint Admit Date Infected Boil December 09, 2024 4:4 8pm WOUND December 09, 2024 6:2 7pm Diabetes Mellitus Type 2 A1c meds December 12, 2024 2:57pm LABWORK December 12, 2024 10: 06pm Wound Care December 19, 2024 4:1 0pm Wound Care December 26, 2024 2:55 pm Diabetes Mellitus Type 2 A1C/MEDS February 232024 4:04pm Heart PALPITATIONS high March 31, 2025 5 :12pm NSTEMI April 02, 2025 12:0 2am NSTEMI April 02, 2025 7:05 am In patient ICD check per April 02 2 025 10:51am NSTEMI April 03, 2025 7:07 am Referral Order April 06, 2025 8:13 am F/up from hospital very high Troponin le vels April 06, 2025 5:44pm Reason for Visit Admit Date Boil of trunk December 09, 2024 4:4 8pm Hyperglycemia December 09, 2024 4:4 8pm Yeast infection involving the vagina and surrounding area December 09, 2024 4:48pm Diabetes type 2, uncontrolled November 4:48pm Abscess December 12, 2024 2:5 7pm Boil of trunk December 19, 2024 4:1 0pm Infected wound December 19, 2024 4:1 0pm Boil of trunk December 26, 2024 2:55 pm Nonhealing nonsurgical wound with fat la abril exposed December 26, 2024 2:55pm Diabetes type 2, uncontrolled December 26, 2024 2:55pm Diabetes type 2, uncontrolled March 20, 2025 4:04pm GERD (gastroesophageal reflux disease) J une 2024 4:04pm Hypertension March 20, 2025 4:04 pm Heart palpitations March 31, 2025 5:12p m Hyperglycemia March 31, 2025 5:12p m CAD (coronary artery disease) March 31, 2025 5:12pm Acute non-ST elevation myocardial infarc tion (NSTEMI) April 02, 2025 12:02am HFrEF (heart failure with reduced ejecti on fraction) April 02, 2025 12:02am CAD (coronary artery disease) April 02, 2025 12:02am Congestive heart failure April 02, 2025 12:02am Biventricular automatic impl antable cardioverter defibrillator in situ April 02, 2025 10:51am Acute non-ST elevation myocardial infarc tion (NSTEMI) April 06, 2025 5:44pm Diabetes type 2, uncontrolled April 06, 2025 5:44pm Chief Complaint Admit Date Diabetes Mellitus Type 2 A1c meds December 12, 2024 2:57pm LABWORK December 12, 2024 10: 06pm Wound Care December 19, 2024 4:1 0pm Wound Care December 26, 2024 2:55 pm Diabetes Mellitus Type 2 A1C/MEDS February 232024 4:04pm Heart PALPITATIONS high March 31, 2025 5 :12pm NSTEMI April 02, 2025 12:0 2am NSTEMI April 02, 2025 7:05 am Pacer Check Remote April 02, 2025 9:00 am In patient ICD check per April 02, 2 025 10:51am NSTEMI April 03, 2025 7:07 am Referral Order April 06, 2025 8:13 am F/up from hospital very high Troponin le vels April 06, 2025 5:44pm Reason for Visit Admit Date Abscess December 12, 2024 2:5 7pm Boil of trunk December 19, 2024 4:1 0pm Infected wound December 19, 2024 4:1 0pm Boil of trunk December 26, 2024 2:55 pm Nonhealing nonsurgical wound with fat la abril exposed December 26, 2024 2:55pm Diabetes type 2, uncontrolled December 26, 2024 2:55pm Diabetes type 2, uncontrolled March 20, 2025 4:04pm GERD (gastroesophageal reflux disease) J 2024 4:04pm Hypertension March 20, 2025 4:04 pm Heart palpitations March 31, 2025 5:12p m Hyperglycemia March 31, 2025 5:12p m CAD (coronary artery disease) March 31, 2025 5:12pm HFrEF (heart failure with reduced ejecti on fraction) April 02, 2025 12:02am Acute non-ST elevation myocardial infarc tion (NSTEMI) April 02, 2025 12:02am CAD (coronary artery disease) April 02, 2025 12:02am Congestive heart failure April 02, 2025 12:02am Biventricular automatic impl antable cardioverter defibrillator in situ April 02, 2025 10:51am Diabetes type 2, uncontrolled April 06, 2025 5:44pm Acute non-ST elevation myocardial infarc tion (NSTEMI) April 06, 2025 5:44pm Chief Complaint Admit Date Wound Care December 19, 2024 4:1 0pm Wound Care December 26, 2024 2:55 pm Diabetes Mellitus Type 2 A1C/MEDS February 232024 4:04pm Heart PALPITATIONS high March 31, 2025 5 :12pm NSTEMI April 02, 2025 12:0 2am NSTEMI April 02, 2025 7:05 am Pacer Check Remote April 02, 2025 9:00 am In patient ICD check per MD April 02 025 10:51am NSTEMI April 03, 2025 7:07 am Referral Order April 06, 2025 8:13 am F/up from hospital very high Troponin le vels April 06, 2025 5:44pm S/P WC (04/04) April 13, 2025 1:53 pm Reason for Visit Admit Date Boil of trunk December 19, 2024 4:1 0pm Infected wound December 19, 2024 4:1 0pm Boil of trunk December 26, 2024 2:55 pm Nonhealing nonsurgical wound with fat la abril exposed December 26, 2024 2:55pm Diabetes type 2, uncontrolled December 26, 2024 2:55pm Diabetes type 2, uncontrolled March 20, 2025 4:04pm GERD (gastroesophageal reflux disease) J une 2024 4:04pm Hypertension March 20, 2025 4:04 pm Heart palpitations March 31, 2025 5:12p m Hyperglycemia March 31, 2025 5:12p m CAD (coronary artery disease) March 31, 2025 5:12pm HFrEF (heart failure with reduced ejecti on fraction) April 02, 2025 12:02am Acute non-ST elevation myocardial infarc tion (NSTEMI) April 02, 2025 12:02am CAD (coronary artery disease) April 02, 2025 12:02am Congestive heart failure April 02, 2025 12:02am Biventricular automatic impl antable cardioverter defibrillator in situ April 02, 2025 10:51am Diabetes type 2, uncontrolled April 06, 2025 5:44pm Acute non-ST elevation myocardial infarc tion (NSTEMI) April 06, 2025 5:44pm HFrEF (heart failure with reduced ejecti on fraction) April 13, 2025 1:53pm Chief Complaint Admit Date Wound Care December 26, 2024 2:55 pm Diabetes Mellitus Type 2 A1C/MEDS February 232024 4:04pm Heart PALPITATIONS high March 31, 2025 5 :12pm NSTEMI April 02, 2025 12:0 2am NSTEMI April 02, 2025 7:05 am Pacer Check Remote April 02, 2025 9:00 am In patient ICD check per MD April 02, 2 025 10:51am NSTEMI April 03, 2025 7:07 am Referral Order April 06, 2025 8:13 am F/up from hospital very high Troponin le adolfos April 06, 2025 5:44pm S/P [facility] (04/04) April 13, 2025 1:53 pm MILD FLASH PULMONARY EDEMA W/ HYPOXIA W/ EXERTION April 21, 2025 6:33pm Reason for Visit Admit Date Boil of trunk December 26, 2024 2:55 pm Nonhealing nonsurgical wound with fat la abril exposed December 26, 2024 2:55pm Diabetes type 2, uncontrolled December 26, 2024 2:55pm Diabetes type 2, uncontrolled March 20, 2025 4:04pm GERD (gastroesophageal reflux disease) J une 2024 4:04pm Hypertension March 20, 2025 4:04 pm Heart palpitations March 31, 2025 5:12p m Hyperglycemia March 31, 2025 5:12p m CAD (coronary artery disease) March 31, 2025 5:12pm HFrEF (heart failure with reduced ejecti on fraction) April 02, 2025 12:02am Acute non-ST elevation myocardial infarc tion (NSTEMI) April 02, 2025 12:02am CAD (coronary artery disease) April 02, 2025 12:02am Congestive heart failure April 02, 2025 12:02am Biventricular automatic impl antable cardioverter defibrillator in situ April 02, 2025 10:51am Diabetes type 2, uncontrolled April 06, 2025 5:44pm Acute non-ST elevation myocardial infarc tion (NSTEMI) April 06, 2025 5:44pm Biventricular automatic impl antable cardioverter defibrillator in situ April 13, 2025 1:53pm Dyslipidemia April 13, 2025 1:53 pm HFrEF (heart failure with reduced ejecti on fraction) April 13, 2025 1:53pm Hypertension April 13, 2025 1:53 pm Stented coronary artery April 13, 2025 1:53pm Additional Source Comments INFORMATION SOURCE (unrecogn ized section and content) DATE CREATED AUTHOR 05/05/2020 [facility] DATE CREATED AUTHOR 'S ORGANIZ ATION 08/18/2021 [facility] DATE CREATED AUTHOR AUTHOR'S ORGANIZ ATION 12/14/2021 [facility] DATE CREATED AUTHOR AUTHOR'S ORGANIZ ATION 10/08/2024 [facility] DATE CREATED AUTHOR AUTHOR'S ORGANIZ ATION 04/14/2025 [facility] DATE CREATED AUTHOR AUTHOR'S ORGANIZ ATION 04/15/2025 [facility] Scheduled Active and Recently Administ ered [...] On Sun08/16/21 at 0700, For 1 dose, Twister Tender Paper to EP Lab, Pre-Procedure(Cath) 0745 (Given by Other Clinician - Provider: Mattie Coronel RN - Comment: given in EP lab prior to procedure by SERVICE DELIVERY DIRECTOR) Continuous Medication Order 08/14/2021 08/15/2021 08/16/2021 0.9 [...] Care Teams (unrecognized sec tion and content) Salvage Winder Relationship Specialty Start Date End Date Naima Garcia [address] [place] [address] PCP - General Nurse Practitioner 10/03/19 Salvage Winder Relationship Specialty Start Date End Date Naima Garcia APRN.CNP [address] [phone] PCP - General Family Medicine 05/04/20 Team Status: Active Member Role Status Dates Naima Garcia NP EXERCISE RIDER-C Primary Care Provider Active Team Status: Inactive Member Role Status Dates Naima Garcia NP, NP-C Primary Care Pr ovider, Attending Provider, Referring Provider Active Team Status: Inactive Member Role Status Dates Naima Garcia NP EXERCISE RIDER-C Primary Care Provider, Attend ing Provider Active Salvage Winder Relationship Specialty Start Date End Date Naima Garcia APRN.[employer]AR[employer]KER [address] [facility] [address] [place] [id number] PCP - General Family Medicine 05/04/20 Team Status: Inactive Member Role Status Dates Naima Garcia NP EXERCISE RIDER-C Primary Care Provider Active Start: October 03, 2024 End: October 03, 2024 Naima Garcia NP EXERCISE RIDER-C Attending Provider Active Start: October 03, 2024 End: October 03, 2024 Naima Garcia NP EXERCISE RIDER-C Referring Provider Active Start: October 03, 2024 End: October 03, 2024 Team Status: Active Member Role Status Dates Naima Garcia EXERCISE RIDER, EXERCISE RIDER-C Primary Care Provider Active Start: December 09, 2024 Naima Garcia EXERCISE RIDER, EXERCISE RIDER-C Attending Provider Active Start: December 09, 2024 Naima Garcia EXERCISE RIDER, EXERCISE RIDER-C Referring Provider Active Start: December 09, 2024 Team Status: Inactive Member Role Status Dates Naima Garcia EXERCISE RIDER, EXERCISE RIDER-C Primary Care Provider Active Start: December 09, 2024 End: December 09, 2024 Dr. Nik Bundy MD Emergency Provider Active Start: December 09, 2024 End: December 09, 2024 Team Status: Inactive Member Role Status Dates Naima Garcia EXERCISE RIDER, EXERCISE RIDER-C Primary Care Provider Active Start: December 09, 2024 End: December 09, 2024 Naima Garcia EXERCISE RIDER, EXERCISE RIDER-C Attending Provider Active Start: December 09, 2024 End: December 09, 2024 Naima Garcia EXERCISE RIDER, EXERCISE RIDER-C Referring Provider Active Start: December 09, 2024 End: December 09, 2024 Team Status: Inactive Member Role Status Dates Naima Garcia EXERCISE RIDER, EXERCISE RIDER-C Primary Care Provider Active Start: December 12, 2024 End: December 12, 2024 Naima Garcia EXERCISE RIDER, EXERCISE RIDER-C Attending Provider Active Start: December 12, 2024 End: December 12, 2024 Naima Garcia EXERCISE RIDER, EXERCISE RIDER-C Referring Provider Active Start: December 12, 2024 End: December 12, 2024 Team Status: Active Member Role/Relationship Status Dates Naima Garcia EXERCISE RIDER, EXERCISE RIDER-C Primary Care Provider Active Team Status: Inactive Member Role/Relationship Status Dates Naima Garcia EXERCISE RIDER, EXERCISE RIDER-C Primary Care Provider Active Start: December 09, 2024 End: December 09, 2024 Naima Garcia EXERCISE RIDER, EXERCISE RIDER-C Attending Provider Active Start: December 09, 2024 End: December 09, 2024 Naima Garcia EXERCISE RIDER, EXERCISE RIDER-C Referring Provider Active Start: December 09, 2024 End: December 09, 2024 Team Status: Inactive Member Role/Relationship Status Dates Naima Garcia EXERCISE RIDER, EXERCISE RIDER-C Primary Care Provider Active Start: December 09, 2024 End: December 09, 2024 Dr. Nik Bundy MD Attending Provider Active Start: December 09, 2024 End: December 09, 2024 Dr. Nik Bundy MD Emergency Provider Active Start: December 09, 2024 End: December 09, 2024 Team Status: Inactive Member Role/Relationship Status Dates Naima Garcia EXERCISE RIDER, EXERCISE RIDER-C Primary Care Provider Active Start: December 12, 2024 End: December 12, 2024 Naima Garcia EXERCISE RIDER, EXERCISE RIDER-C Attending Provider Active Start: December 12, 2024 End: December 12, 2024 Naima Garcia EXERCISE RIDER, EXERCISE RIDER-C Referring Provider Active Start: December 12, 2024 End: December 12, 2024 Team Status: Inactive Member Role/Relationship Status Dates Naima Garcia EXERCISE RIDER, EXERCISE RIDER-C Primary Care Provider Active Start: December 12, 2024 End: December 12, 2024 Naima Garcia EXERCISE RIDER, EXERCISE RIDER-C Attending Provider Active Start: December 12, 2024 End: December 12, 2024 Naima Garcia EXERCISE RIDER, EXERCISE RIDER-C Referring Provider Active Start: December 12, 2024 End: December 12, 2024 Team Status: Inactive Member Role/Relationship Status Dates Naima Garcia EXERCISE RIDER, EXERCISE RIDER-C Primary Care Provider Active Start: December 19, 2024 End: December 19, 2024 Naima Garcia EXERCISE RIDER, EXERCISE RIDER-C Attending Provider Active Start: December 19, 2024 End: December 19, 2024 Naima Garcia EXERCISE RIDER, EXERCISE RIDER-C Referring Provider Active Start: December 19, 2024 End: December 19, 2024 Team Status: Inactive Member Role/Relationship Status Dates Naima Garcia EXERCISE RIDER, EXERCISE RIDER-C Primary Care Provider Active Start: December 26, 2024 End: December 26, 2024 Naima Garcia EXERCISE RIDER, EXERCISE RIDER-C Attending Provider Active Start: December 26, 2024 End: December 26, 2024 Naima Garcia EXERCISE RIDER, EXERCISE RIDER-C Referring Provider Active Start: December 26, 2024 End: December 26, 2024 Team Status: Inactive Member Role/Relationship Status Dates Naima Garcia EXERCISE RIDER, EXERCISE RIDER-C Primary Care Provider Active Start: March 20, 2025 End: March 20, 2025 Naima Garcia EXERCISE RIDER, EXERCISE RIDER-C Attending Provider Active Start: March 20, 2025 End: March 20, 2025 Naima Garcia EXERCISE RIDER, EXERCISE RIDER-C Referring Provider Active Start: March 20, 2025 End: March 20, 2025 Team Status: Inactive Member Role/Relationship Status Dates Naima Garcia EXERCISE RIDER, EXERCISE RIDER-C Primary Care Provider Active Start: March 20, 2025 End: March 20, 2025 Namiaaaron KellyGarcia EXERCISE RIDER, EXERCISE RIDER-C Attending Provider Active Start: March 20, 2025 End: March 20, 2025 Naimaaaron KellyGarcia EXERCISE RIDER, EXERCISE RIDER-C Referring Provider Active Start: March 20, 2025 End: March 20, 2025 Team Status: Inactive Member Role/Relationship Status Dates Naimaaaron KellyGarcia EXERCISE RIDER, EXERCISE RIDER-C Primary Care Provider Active Start: March 31, 2025 End: March 31, 2025 Naimaaaron KellyGarcia EXERCISE RIDER, EXERCISE RIDER-C Attending Provider Active Start: March 31, 2025 End: March 31, 2025 Naima Garcia EXERCISE RIDER, EXERCISE RIDER-C Referring Provider Active Start: March 31, 2025 End: March 31, 2025 Team Status: Active Member Role/Relationship Status Dates Naimaaaron KellyGarcia EXERCISE RIDER, EXERCISE RIDER-C Primary Care Provider Active Start: March 31, 2025 Naimaaaron KellyGarcia EXERCISE RIDER, EXERCISE RIDER-C Attending Provider Active Start: March 31, 2025 Naima Garcia EXERCISE RIDER, EXERCISE RIDER-C Referring Provider Active Start: March 31, 2025 Team Status: Active Member Role/Relationship Status Dates Naimaaaron KellyGarcia EXERCISE RIDER, EXERCISE RIDER-C Primary Care Provider Active Start: April 02, 2025 Dr. Mago Jang DO Emergency Provider Active Start: April 02, 2025 Dr. Franko Cueto DO Admit Provider Active Start: April 02, 2025 Dr. Franko Cueto DO Attending Provider Active Start: April 02, 2025 Team Status: Active Member Role/Relationship Status Dates Naima Jose EXERCISE RIDER, EXERCISE RIDER-C Primary Care Provider Active Start: April 02, 2025 Dr. Mago Jang DO Emergency Provider Active Start: April 02, 2025 Dr. Franko Cueto DO Admit Provider Active Start: April 02, 2025 Dr. Franko Cueto DO Other Provider Active Start: April 02, 2025 Dr. Amaris Gomez MD Attending Provider Active Start: April 02, 2025 Dr. Mino Zhang MD Other Provider Active Start : April 02, 2025 Team Status: Active Member Role/Relationship Status Dates Naima Jose EXERCISE RIDER, EXERCISE RIDER-C Primary Care Provider Active Start: April 02, 2025 Dr. Mago Jang DO Emergency Provider Active Start: April 02, 2025 Dr. Franko Cueto DO Admit Provider Active Start: April 02, 2025 Dr. Franko Cueto DO Other Provider Active Start: April 02, 2025 Dr. Amaris Gomez MD Attending Provider Active Start: April 02, 2025 Dr. Amaris Gomez MD Other Provider Active St art: April 02, 2025 Dr. Mino Zhang MD Other Provider Active Start : April 02, 2025 Team Status: Inactive Member Role/Relationship Status Dates Naima Garcia EXERCISE RIDER, EXERCISE RIDER-C Primary Care Provider Active Start: April 02, 2025 End: April 02, 2025 Naima Garcia EXERCISE RIDER, EXERCISE RIDER-C Referring Provider Active Start: April 02, 2025 End: April 02, 2025 Raven Concepcion Attending Provider Active Start: 2024 End: April 02, 2025 Team Status: Inactive Member Role/Relationship Status Dates Naima Garcia EXERCISE RIDER, EXERCISE RIDER-C Primary Care Provider Active Start: April 02, 2025 End: April 03, 2025 Dr. Mago Jang DO Emergency Provider Active Start: April 02, 2025 End: April 03, 2025 Dr. Franko Cueto DO Admit Provider Active Start: April 02, 2025 End: April 03, 2025 Dr. Franko Cueto DO Other Provider Active Start: April 02, 2025 End: April 03, 2025 Dr. Amaris Gomez MD Attending Provider Active Start: April 02, 2025 End: April 03, 2025 Dr. Mino Zhang MD Other Provider Active Start : April 02, 2025 End: April 03, 2025 Team Status: Active Member Role/Relationship Status Dates Naima Garcia EXERCISE RIDER, EXERCISE RIDER-C Primary Care Provider Active Start: April 03, 2025 Dr. Mago Jang DO Emergency Provider Active Start: April 03, 2025 Dr. Franko Cueto DO Admit Provider Active Start: April 03, 2025 Dr. Franko Cueto DO Other Provider Active Start: April 03, 2025 Dr. Amaris Gomez MD Attending Provider Active Start: April 03, 2025 Dr. Amaris Gomez MD Other Provider Active St art: April 03, 2025 Dr. Mino Zhang MD Other Provider Active Start : April 03, 2025 Team Status: Active Member Role/Relationship Status Dates Naima Garcia EXERCISE RIDER, EXERCISE RIDER-C Primary Care Provider Active Start: April 06, 2025 Dr. Kalen Edwards MD Attending Provider Active S tart: April 06, 2025 Team Status: Inactive Member Role/Relationship Status Dates Naima Garcia EXERCISE RIDER, EXERCISE RIDER-C Primary Care Provider Active Start: March 31, 2025 End: March 31, 2025 Naima Garcia EXERCISE RIDER, EXERCISE RIDER-C Attending Provider Active Start: March 31, 2025 End: March 31, 2025 Naima Garcia EXERCISE RIDER, EXERCISE RIDER-C Referring Provider Active Start: March 31, 2025 End: March 31, 2025 Team Status: Active Member Role/Relationship Status Dates Naima Garcia EXERCISE RIDER, EXERCISE RIDER-C Primary Care Provider Active Start: April 06, 2025 Naima Garcia EXERCISE RIDER, EXERCISE RIDER-C Attending Provider Active Start: April 06, 2025 Naima Garcia EXERCISE RIDER, EXERCISE RIDER-C Referring Provider Active Start: April 06, 2025 Team Status: Inactive Member Role/Relationship Status Dates Naima Garcia EXERCISE RIDER, EXERCISE RIDER-C Primary Care Provider Active Start: December 12, 2024 End: December 12, 2024 Naima Garcia EXERCISE RIDER, EXERCISE RIDER-C Attending Provider Active Start: December 12, 2024 End: December 12, 2024 Naima Garcia EXERCISE RIDER, EXERCISE RIDER-C Referring Provider Active Start: December 12, 2024 End: December 12, 2024 Team Status: Inactive Member Role/Relationship Status Dates Naima Garcia EXERCISE RIDER, EXERCISE RIDER-C Primary Care Provider Active Start: December 12, 2024 End: December 12, 2024 Naima Garcia EXERCISE RIDER, EXERCISE RIDER-C Attending Provider Active Start: December 12, 2024 End: December 12, 2024 Naima Garcia EXERCISE RIDER, EXERCISE RIDER-C Referring Provider Active Start: December 12, 2024 End: December 12, 2024 Team Status: Inactive Member Role/Relationship Status Dates Naima Garcia EXERCISE RIDER, EXERCISE RIDER-C Primary Care Provider Active Start: December 19, 2024 End: December 19, 2024 Naima Garcia EXERCISE RIDER, EXERCISE RIDER-C Attending Provider Active Start: December 19, 2024 End: December 19, 2024 Naima Garcia EXERCISE RIDER, EXERCISE RIDER-C Referring Provider Active Start: December 19, 2024 End: December 19, 2024 Team Status: Inactive Member Role/Relationship Status Dates Naima Garcia EXERCISE RIDER, EXERCISE RIDER-C Primary Care Provider Active Start: December 26, 2024 End: December 26, 2024 Naima Garcia EXERCISE RIDER, EXERCISE RIDER-C Attending Provider Active Start: December 26, 2024 End: December 26, 2024 Naimaaaron Garcia EXERCISE RIDER, EXERCISE RIDER-C Referring Provider Active Start: December 26, 2024 End: December 26, 2024 Team Status: Inactive Member Role/Relationship Status Dates Naimaaaron Garcia EXERCISE RIDER, EXERCISE RIDER-C Primary Care Provider Active Start: March 20, 2025 End: March 20, 2025 Animaaaron Garcia EXERCISE RIDER, EXERCISE RIDER-C Attending Provider Active Start: March 20, 2025 End: March 20, 2025 Naima Jose EXERCISE RIDER, EXERCISE RIDER-C Referring Provider Active Start: March 20, 2025 End: March 20, 2025 Team Status: Inactive Member Role/Relationship Status Dates Naima Jose EXERCISE RIDER, EXERCISE RIDER-C Primary Care Provider Active Start: March 20, 2025 End: March 20, 2025 Naima Jose EXERCISE RIDER, EXERCISE RIDER-C Attending Provider Active Start: March 20, 2025 End: March 20, 2025 Naima Jose EXERCISE RIDER, EXERCISE RIDER-C Referring Provider Active Start: March 20, 2025 End: March 20, 2025 Team Status: Inactive Member Role/Relationship Status Dates Naimaaaron Garcia EXERCISE RIDER, EXERCISE RIDER-C Primary Care Provider Active Start: March 31, 2025 End: March 31, 2025 Naima Jose EXERCISE RIDER, EXERCISE RIDER-C Attending Provider Active Start: March 31, 2025 End: March 31, 2025 Naima Garcia EXERCISE RIDER, EXERCISE RIDER-C Referring Provider Active Start: March 31, 2025 End: March 31, 2025 Team Status: Inactive Member Role/Relationship Status Dates Naima Jose EXERCISE RIDER, EXERCISE RIDER-C Primary Care Provider Active Start: March 31, 2025 End: March 31, 2025 Naima Jose EXERCISE RIDER, EXERCISE RIDER-C Attending Provider Active Start: March 31, 2025 End: March 31, 2025 Naima Garcia EXERCISE RIDER, EXERCISE RIDER-C Referring Provider Active Start: March 31, 2025 End: March 31, 2025 Team Status: Inactive Member Role/Relationship Status Dates Naima Jose EXERCISE RIDER, EXERCISE RIDER-C Primary Care Provider Active Start: April 02, 2025 End: April 03, 2025 Dr. Mago Jang DO Emergency Provider Active Start: April 02, 2025 End: April 03, 2025 Dr. Franko Cueto DO Admit Provider Active Start: April 02, 2025 End: April 03, 2025 Dr. Franko Cueto DO Other Provider Active Start: April 02, 2025 End: April 03, 2025 Dr. Amaris Gomez MD Attending Provider Active Start: April 02, 2025 End: April 03, 2025 Dr. Mino Zhang MD Other Provider Active Start : April 02, 2025 End: April 03, 2025 Team Status: Active Member Role/Relationship Status Dates Naima Garcia EXERCISE RIDER, EXERCISE RIDER-C Primary Care Provider Active Start: April 02, 2025 Dr. Mago Jang DO Emergency Provider Active Start: April 02, 2025 Dr. Franko Cueto DO Admit Provider Active Start: April 02, 2025 Dr. Franko Cueto DO Other Provider Active Start: April 02, 2025 Dr. Amaris Gomez MD Attending Provider Active Start: April 02, 2025 Dr. Amaris Gomez MD Other Provider Active St art: April 02, 2025 Dr. Mino Zhang MD Other Provider Active Start : April 02, 2025 Team Status: Inactive Member Role/Relationship Status Dates Naima Garcia EXERCISE RIDER, EXERCISE RIDER-C Primary Care Provider Active Start: April 02, 2025 End: April 02, 2025 Dr. Mino Zhang MD Attending Provider Active S tart: April 02, 2025 End: April 02, 2025 Team Status: Inactive Member Role/Relationship Status Dates Naima Garcia EXERCISE RIDER, EXERCISE RIDER-C Primary Care Provider Active Start: April 02, 2025 End: April 02, 2025 Naima Garcia EXERCISE RIDER, EXERCISE RIDER-C Referring Provider Active Start: April 02, 2025 End: April 02, 2025 Raven Concepcion Attending Provider Active Start: Nikki [email or web address] End: April 02, 2025 Team Status: Active Member Role/Relationship Status Dates Naima Garcia EXERCISE RIDER, EXERCISE RIDER-C Primary Care Provider Active Start: April 03, 2025 Dr. Mago Jang DO Emergency Provider Active Start: April 03, 2025 Dr. Franko Cueto DO Admit Provider Active Start: April 03, 2025 Dr. Franko Cueto DO Other Provider Active Start: April 03, 2025 Dr. Amaris Gomez MD Attending Provider Active Start: April 03, 2025 Dr. Amaris Gomez MD Other Provider Active St art: April 03, 2025 Dr. Mino Zhang MD Other Provider Active Start : April 03, 2025 Team Status: Active Member Role/Relationship Status Dates Naima Garcia EXERCISE RIDER, EXERCISE RIDER-C Primary Care Provider Active Start: April 06, 2025 Dr. Kalen Edwards MD Attending Provider Active S tart: April 06, 2025 Team Status: Inactive Member Role/Relationship Status Dates Naimaaaron Garcia EXERCISE RIDER, EXERCISE RIDER-C Primary Care Provider Active Start: April 06, 2025 End: April 06, 2025 Naima Garcia EXERCISE RIDER, EXERCISE RIDER-C Attending Provider Active Start: April 06, 2025 End: April 06, 2025 Naima Jose EXERCISE RIDER, EXERCISE RIDER-C Referring Provider Active Start: April 06, 2025 End: April 06, 2025 Team Status: Inactive Member Role/Relationship Status Dates Naimaaaron Garcia EXERCISE RIDER, EXERCISE RIDER-C Primary Care Provider Active Start: December 19, 2024 End: December 19, 2024 Naimaaaron Garcia EXERCISE RIDER, EXERCISE RIDER-C Attending Provider Active Start: December 19, 2024 End: December 19, 2024 Naima Jose EXERCISE RIDER, EXERCISE RIDER-C Referring Provider Active Start: December 19, 2024 End: December 19, 2024 Team Status: Inactive Member Role/Relationship Status Dates Naimaaaron Garcia EXERCISE RIDER, EXERCISE RIDER-C Primary Care Provider Active Start: December 26, 2024 End: December 26, 2024 Naima Garcia EXERCISE RIDER, EXERCISE RIDER-C Attending Provider Active Start: December 26, 2024 End: December 26, 2024 Naima Jose EXERCISE RIDER, EXERCISE RIDER-C Referring Provider Active Start: December 26, 2024 End: December 26, 2024 Team Status: Inactive Member Role/Relationship Status Dates Naimaaaron Garcia EXERCISE RIDER, EXERCISE RIDER-C Primary Care Provider Active Start: March 20, 2025 End: March 20, 2025 Naima Garcia EXERCISE RIDER, EXERCISE RIDER-C Attending Provider Active Start: March 20, 2025 End: March 20, 2025 Naima Garcia EXERCISE RIDER, EXERCISE RIDER-C Referring Provider Active Start: March 20, 2025 End: March 20, 2025 Team Status: Inactive Member Role/Relationship Status Dates Naimaaaron Garcia EXERCISE RIDER, EXERCISE RIDER-C Primary Care Provider Active Start: March 20, 2025 End: March 20, 2025 Naima Garcia EXERCISE RIDER, EXERCISE RIDER-C Attending Provider Active Start: March 20, 2025 End: March 20, 2025 Naima Garcia EXERCISE RIDER, EXERCISE RIDER-C Referring Provider Active Start: March 20, 2025 End: March 20, 2025 Team Status: Inactive Member Role/Relationship Status Dates Naima Garcia EXERCISE RIDER, EXERCISE RIDER-C Primary Care Provider Active Start: March 31, 2025 End: March 31, 2025 Naima Garcia EXERCISE RIDER, EXERCISE RIDER-C Attending Provider Active Start: March 31, 2025 End: March 31, 2025 Naima Garcia EXERCISE RIDER, EXERCISE RIDER-C Referring Provider Active Start: March 31, 2025 End: March 31, 2025 Team Status: Inactive Member Role/Relationship Status Dates Naima Garcia EXERCISE RIDER, EXERCISE RIDER-C Primary Care Provider Active Start: March 31, 2025 End: March 31, 2025 Naima Jose EXERCISE RIDER, EXERCISE RIDER-C Attending Provider Active Start: March 31, 2025 End: March 31, 2025 Naima Garcia EXERCISE RIDER, EXERCISE RIDER-C Referring Provider Active Start: March 31, 2025 End: March 31, 2025 Team Status: Inactive Member Role/Relationship Status Dates Naima Garcia EXERCISE RIDER, EXERCISE RIDER-C Primary Care Provider Active Start: April 02, 2025 End: April 03, 2025 Dr. Mago Jang DO Emergency Provider Active Start: April 02, 2025 End: April 03, 2025 Dr. Franko Cueto DO Admit Provider Active Start: April 02, 2025 End: April 03, 2025 Dr. Franko Cueto DO Other Provider Active Start: April 02, 2025 End: April 03, 2025 Dr. Amaris Gomez MD Attending Provider Active Start: April 02, 2025 End: April 03, 2025 Dr. Mino Zhang MD Other Provider Active Start : April 02, 2025 End: April 03, 2025 Team Status: Active Member Role/Relationship Status Dates Naima Garcia EXERCISE RIDER, EXERCISE RIDER-C Primary Care Provider Active Start: April 02, 2025 Dr. Mago Jang DO Emergency Provider Active Start: April 02, 2025 Dr. Franko Cueto DO Admit Provider Active Start: April 02, 2025 Dr. Franko Cueto DO Other Provider Active Start: April 02, 2025 Dr. Amaris Gomez MD Attending Provider Active Start: April 02, 2025 Dr. Amaris Gomez MD Other Provider Active St art: April 02, 2025 Dr. Mino Zhang MD Other Provider Active Start : April 02, 2025 Team Status: Inactive Member Role/Relationship Status Dates Naima Garcia EXERCISE RIDER, EXERCISE RIDER-C Primary Care Provider Active Start: April 02, 2025 End: April 02, 2025 Dr. Mino Zhang MD Attending Provider Active S tart: April 02, 2025 End: April 02, 2025 Team Status: Inactive Member Role/Relationship Status Dates Naima Garcia EXERCISE RIDER, EXERCISE RIDER-C Primary Care Provider Active Start: April 02, 2025 End: April 02, 2025 Naima Garcia EXERCISE RIDER, EXERCISE RIDER-C Referring Provider Active Start: April 02, 2025 End: April 02, 2025 Raven Concepcion Attending Provider Active Start: 2024 End: April 02, 2025 Team Status: Active Member Role/Relationship Status Dates Naima Garcia EXERCISE RIDER, EXERCISE RIDER-C Primary Care Provider Active Start: April 03, 2025 Dr. Mago Jang DO Emergency Provider Active Start: April 03, 2025 Dr. Franko Cueto DO Admit Provider Active Start: April 03, 2025 Dr. Franko Cueto DO Other Provider Active Start: April 03, 2025 Dr. Amaris Gomez MD Attending Provider Active Start: April 03, 2025 Dr. Amaris Gomez MD Other Provider Active St art: April 03, 2025 Dr. Mino Zhang MD Other Provider Active Start : April 03, 2025 Team Status: Active Member Role/Relationship Status Dates Naima Garcia EXERCISE RIDER, EXERCISE RIDER-C Primary Care Provider Active Start: April 06, 2025 Dr. Kalen Edwards MD Attending Provider Active S tart: April 06, 2025 Team Status: Inactive Member Role/Relationship Status Dates Naima Garcia EXERCISE RIDER, EXERCISE RIDER-C Primary Care Provider Active Start: April 06, 2025 End: April 06, 2025 Naima Garcia EXERCISE RIDER, EXERCISE RIDER-C Attending Provider Active Start: April 06, 2025 End: April 06, 2025 Naima Garcia EXERCISE RIDER, EXERCISE RIDER-C Referring Provider Active Start: April 06, 2025 End: April 06, 2025 Team Status: Inactive Member Role/Relationship Status Dates Naima Garcia EXERCISE RIDER, EXERCISE RIDER-C Primary Care Provider Active Start: April 13, 2025 End: April 13, 2025 Naima Garcia EXERCISE RIDER, EXERCISE RIDER-C Referring Provider Active Start: April 13, 2025 End: April 13, 2025 Tamanna Guerra EXERCISE RIDER, EXERCISE RIDER-C Attending Provider Active Start: April 13, 2025 End: April 13, 2025 Team Status: Inactive Member Role/Relationship Status Dates Naima Garcia EXERCISE RIDER, EXERCISE RIDER-C Primary Care Provider Active Start: December 26, 2024 End: December 26, 2024 Naima Jose EXERCISE RIDER, EXERCISE RIDER-C Attending Provider Active Start: December 26, 2024 End: December 26, 2024 Naima Garcia EXERCISE RIDER, EXERCISE RIDER-C Referring Provider Active Start: December 26, 2024 End: December 26, 2024 Team Status: Inactive Member Role/Relationship Status Dates Naima Garcia EXERCISE RIDER, EXERCISE RIDER-C Primary Care Provider Active Start: March 20, 2025 End: March 20, 2025 Naima Garica EXERCISE RIDER, EXERCISE RIDER-C Attending Provider Active Start: March 20, 2025 End: March 20, 2025 Naima Jose EXERCISE RIDER, EXERCISE RIDER-C Referring Provider Active Start: March 20, 2025 End: March 20, 2025 Team Status: Inactive Member Role/Relationship Status Dates Naima Garcia EXERCISE RIDER, EXERCISE RIDER-C Primary Care Provider Active Start: March 31, 2025 End: March 31, 2025 Naima Jose EXERCISE RIDER, EXERCISE RIDER-C Attending Provider Active Start: March 31, 2025 End: March 31, 2025 Naima Garcia EXERCISE RIDER, EXERCISE RIDER-C Referring Provider Active Start: March 31, 2025 End: March 31, 2025 Team Status: Inactive Member Role/Relationship Status Dates Naima Garcia EXERCISE RIDER, EXERCISE RIDER-C Primary Care Provider Active Start: April 02, 2025 End: April 03, 2025 Dr. Mago Jang DO Emergency Provider Active Start: April 02, 2025 End: April 03, 2025 Dr. Franko Cueto DO Admit Provider Active Start: April 02, 2025 End: April 03, 2025 Dr. Franko Cueto DO Other Provider Active Start: April 02, 2025 End: April 03, 2025 Dr. Amaris Gomez MD Attending Provider Active Start: April 02, 2025 End: April 03, 2025 Dr. Mino Zhang MD Other Provider Active Start : April 02, 2025 End: April 03, 2025 Team Status: Active Member Role/Relationship Status Dates Naima Garcia EXERCISE RIDER, EXERCISE RIDER-C Primary Care Provider Active Start: April 02, 2025 Dr. Mago Jang DO Emergency Provider Active Start: April 02, 2025 Dr. Franko Cueto DO Admit Provider Active Start: April 02, 2025 Dr. Franko Cueto DO Other Provider Active Start: April 02, 2025 Dr. Amaris Gomez MD Attending Provider Active Start: April 02, 2025 Dr. Amaris Gomez MD Other Provider Active St art: April 02, 2025 Dr. Mino Zhang MD Other Provider Active Start : April 02, 2025 Team Status: Inactive Member Role/Relationship Status Dates Naima Garcia EXERCISE RIDER, EXERCISE RIDER-C Primary Care Provider Active Start: April 02, 2025 End: April 02, 2025 Dr. Mino Zhang MD Attending Provider Active S tart: April 02, 2025 End: April 02, 2025 Team Status: Inactive Member Role/Relationship Status Dates Naima Garcia EXERCISE RIDER, EXERCISE RIDER-C Primary Care Provider Active Start: April 02, 2025 End: April 02, 2025 Naima Garcia EXERCISE RIDER, EXERCISE RIDER-C Referring Provider Active Start: April 02, 2025 End: April 02, 2025 Raven Concepcion Attending Provider Active Start: Nikki 2024 End: April 02, 2025 Team Status: Active Member Role/Relationship Status Dates Naima Garcia EXERCISE RIDER, EXERCISE RIDER-C Primary Care Provider Active Start: April 03, 2025 Dr. Mago Jang DO Emergency Provider Active Start: April 03, 2025 Dr. Franko Cueto DO Admit Provider Active Start: April 03, 2025 Dr. Franko Cueto DO Other Provider Active Start: April 03, 2025 Dr. Amaris Gomez MD Attending Provider Active Start: April 03, 2025 Dr. Amaris Gomez MD Other Provider Active St art: April 03, 2025 Dr. Mino Zhang MD Other Provider Active Start : April 03, 2025 Team Status: Active Member Role/Relationship Status Dates Naima Garcia NP, EXERCISE RIDER-C Primary Care Provider Active Start: April 06, 2025 Dr. Kalen Edwards MD Attending Provider Active S tart: April 06, 2025 Team Status: Inactive Member Role/Relationship Status Dates Naima Kellyson EXERCISE RIDER, EXERCISE RIDER-C Primary Care Provider Active Start: April 06, 2025 End: April 06, 2025 Naima Garcia EXERCISE RIDER, EXERCISE RIDER-C Attending Provider Active Start: April 06, 2025 End: April 06, 2025 Naima Garcia EXERCISE RIDER, EXERCISE RIDER-C Referring Provider Active Start: April 06, 2025 End: April 06, 2025 Team Status: Inactive Member Role/Relationship Status Dates Naima Garcia EXERCISE RIDER, EXERCISE RIDER-C Primary Care Provider Active Start: April 13, 2025 End: April 13, 2025 Naima Garcia EXERCISE RIDER, EXERCISE RIDER-C Referring Provider Active Start: April 13, 2025 End: April 13, 2025 Tamanna Guerra EXERCISE RIDER, EXERCISE RIDER-C Attending Provider Active Start: April 13, 2025 End: April 13, 2025 Team Status: Active Member Role/Relationship Status Dates Naima Garcia EXERCISE RIDER, EXERCISE RIDER-C Primary Care Provider Active Start: April 21, 2025 Dr. Mago Jang , Emergency Provider Active Start: April 21, 2025 Dr. Franko Cueto , Admit Provider Active Start: April 21, 2025 Dr. Franko Cueto , Attending Provider Active Start: April 21, 2025 Goals (unrecognized section and content) Goals may [...] or prosecute any alcohol or drug abuse patient.[facility] the event this information is protected by the Federal Confidentiality of Alcohol and Drug Abuse Patient Records regulations: The Federal rules restrict any use of the information to criminally investigate or prosecute any alcohol or drug abuse patient.[facility] FOR RECORDS PERTAINING TO PATIENTS WHO [...] BE BASED ON THE PRIMARY CLINICAL RECORDS. [facility] [employer] [facility]. provides no warranty or guarantee of the accuracy or completeness of information in this document.
--- OUTSIDE RECORDS SUMMARY | 2025-04-21 23:11 | XMS RPT_ITS | CCD ---
Author Organization [facility] Care Team Providers Care Paper Coater Name Role Phone Jamie Garciaa Primary Care Provider [phone] GARCIA, NAIMA L Primary Care Unavailable GARCIA, NAIMA L Referring Unavailable GARCIA, NAIMA L Primary Care Unavailable Garcia RIB CUTTER-C, Naima Primary Care Provider Garcia RIB CUTTER-C, Naima Attending Provider Garcia RIB CUTTER-C, Naima Referring Provider Dr. Nik Bundy MD Emergency Provider Garcia RIB CUTTER-C, Naima Primary Care Provider Garcia RIB CUTTER-C, Naima Attending Provider Garcia RIB CUTTER-C, Naima Referring Provider Dr. Nik Bundy MD Attending Provider Dr. Mago Jang DO Emergency Provider Dr. Franko Cueto DO Admit Provider [phone] Dr. Franko Cueto DO Attending Provider Dr. Franko Cueto DO Other Provider Dr. Amaris Gomez MD Attending Provider Dr. Mino Zhang MD Other Provider Dr. Amaris Gomez MD Other Provider Raven Concepcion Attending Provider Unavailable Dr. Kalen Edwards MD Attending Provider Unavailab le Garcia RIB CUTTER-C, Naima Primary Care Provider [phone] Garcia RIB CUTTER-C, Naima Attending Provider Garcia RIB CUTTER-C, Naima Referring Provider [phone] Dr. Mino Zhang MD Attending Provider [phone] Garcia RIB CUTTER-C, Naima Primary Care Provider [phone] Garcia RIB CUTTER-C, Naima Attending Provider Garcia RIB CUTTER-C, Naima Referring Provider Charlie RIB CUTTER-C, Tamanna Attending Provider Garcia RIB CUTTER, Naima Primary Care Unavailable Nik Bundy Attending Unavailable Garcia RIB CUTTER, Naima Primary Care Unavailable mAaris Gomez Attending Unavailable Franko Cueto Consulting Unavailable Franko Cueto Admitting Unavailable Leatha, [place] Consulting Unavailable Garcia RIB CUTTER, Naima Primary Care Unavailable Matt Ness Attending Unavailabl e Garcia RIB CUTTER, Naima Referring Unavailable Garcia RIB CUTTER, Naima Attending Unavailable Garcia RIB CUTTER, Naima Primary Care Unavailable Agrcia RIB CUTTER, Naima Primary Care Unavailable Kalen Edwards Attending Unavailable Garcia RIB CUTTER, Naima Primary Care Unavailable Mago Jang Referring Unavailable Franko Cueto Attending Unavailable Franko Cueto Consulting Unavailable Nory, Franko Admitting Unavailable Amaris Gomez Attending Unavailable Leatha, [place] Consulting Unavailable Amaris Gomez Consulting Unavailable Garcia RIB CUTTER, Naima Primary Care Unavailable Mino Zhang Attending Unavailable Garcia RIB CUTTER, Naima Primary Care Unavailable Garcia RIB CUTTER, Naima Referring Unavailable Charlie GARCIA, Tamanna Attending Unavailable Garcia RIB CUTTER, Naima Primary Care Unavailable Garcia RIB CUTTER, Naima Referring Unavailable Raven Concepcion Attending Unavailable Garcia RIB CUTTER, Naima Primary Care Unavailable Garcia RIB CUTTER, Naima Referring Unavailable Garcia RIB CUTTER, Naima Attending Unavailable Garcia RIB CUTTER, Naima Primary Care Unavailable Garcia RIB CUTTER, Naima Referring Unavailable Garcia RIB CUTTER, Naima Attending Unavailable Garcia RIB CUTTER, Naima Primary Care Unavailable Garcia RIB CUTTER, Naima Referring Unavailable Garcia RIB CUTTER, Naima Attending Unavailable GARCIA, NAIMA Primary Care Unavailable GARCIA, NAIMA Primary Care Unavailable GARCIA, NAIMA Primary Care Unavailable GARCIA, NAIMA Primary Care Unavailable Garcia RIB CUTTER-C, Naima Primary Care Provider [phone] Garcia RIB CUTTER-C, Naima Attending Provider Garcia RIB CUTTER-C, Naima Referring Provider Dr. Franko Cueto DO Attending Provider Allergies Allergy Classification Reported Allergen(s) Allergy Type Date of Onset Reaction(s) Facility (1 source) rosuvastatin Drug Allergy 6 Other (See Comments) [facility] (13 sources) Xbgmkxd-Xmk-Aot Reductase Inhibitor Allergy to substance 2 cramps [facility] (10 sources) dapagliflozin Drug Allergy 5 yeast [facility] (10 sources) SITagliptin Drug Allergy 5 Rash [facility] (1 source) dapagliflozin Drug Allergy 5 [facility] Repository (1 source) SITagliptin Drug Allergy 5 [facility] Repository (1 source) Kiwxpsr-Tmm-Kta Reductase Inhibitor Drug allergy (disorder) 5 [facility] Repository Medications Current Medications Medication Drug [...] EC tablet Indications: Coronary artery disease involving [place] coronary artery of [place] heart without angina pectoris Take 1 tablet by mouth daily 30 tablet 3 08/20/2017 Active atorvastatin 40 mg oral tablet (1 source) HMG-CoA Reductase Inhibitor Start: 03-09-2020 take 1 tablet by mouth once daily atorvastatin (LIPITOR) 40 MG tablet Indications: Hyperlipidemia, unspecified hyperlipidemia type Take 1 tablet by mouth daily 90 tablet 1 03/09/2020 Active B Kebhhfp-Y-Qdjgt Acid (B COMPLEX + C TR) TBCR (1 source) B Gbdrqid-V-Icnp c Acid (B COMPLEX + C TR) [...] 01, 2025 9:11pm take 1 capsule by [facility] once daily Cholecalciferol (VITAMIN D3) 2000 UNITS [...] 24, 2023 12:00am December 09, 2024 7:22pm Guqtkqnq-Slxs-Nsh1-C-Mar-Taiwo sw (Osteo Bi-Flex Triple Strength) 750 mg-644 mg- 30 mg-1 mg tablet (1 source) Start: 04-21-2025 Hfpqtpsx-Pkgd-Gpw7-C-Mar-Taiwo sw (Osteo Bi-Flex Triple Strength) 750 mg-644 [...] contact the information source for Protocol details. Glenwood-3 Fatty Acids (Fish Oi l Concentrate) 1,000 mg capsule (14 sources) Start: 11-14-2018 Glenwood-3 Fatty Acids (Fish Oi l Concentrate) 1,000 mg capsule Active 2000 MG PO DAILY November 14, 2018 7:38pm Start: 11-14-2018 End: 04-02-2025 Glenwood-3 Fatty Acids (Fish Oi l Concentrate) 1,000 mg capsule Discontinued 2000 mg PO DAILY November 14, 2018 1:00am April 02, 2025 3:05am Start: 11-14-2018 Glenwood-3 Fatty Acids (Fish Oil Concentrate) 1,000 mg capsule Active 2000 mg PO DAILY November 14, 2018 1:00am Start: 11-14-2018 Glenwood-3 Fatty Acids (Fish Oil Concentrate) 1,000 mg [...] Coronary arteriosclerosis; Translations: [Atherosclerotic heart disease of [place] coronary artery without angina pectoris] Onset: 0 [...] follow-up to establish with Endocrinology, may see RIB CUTTER. Unclassified (7 sources) Follow-up within 3-5 days [...] myocardial infarction,I25.10 - Atherosclerotic heart disease of [place] coronary artery without angina pectoris,I50.20 - Unspecified [...] Auto (Unsp spec) [#/Vol] 2.53 10*3/uL 0.83-4.51 [facility] Absolute neutrophil countOrd ered By: Mago Jang on 04-21-2025 Neutrophils (Bld) [#/Vol] 10.2 10*3/uL High 2.0-7.7 [facility] Activated partial thrombopla stin time (aPTT) in platelet poor plasma by coagulation aOrdered By: Mago Jang on 04-21-2025 aPTT Coag (PPP) [Time] 27.2 s 24.1-36.2 [facility] Anion gap in Serum or Plasma Ordered By: Mago Jang on 04-21-2025 Anion gap [Moles/Vol] 18 mmol/L High 5-15 [facility] Automated lymphocyte count a s percentage of total leukocytesOrdered By: Mago Jang on 04-21-2025 Lymphocytes/100 WBC Auto (Unsp spec) 18.2 % Low 19-41 [facility] BUN/creatinine ratioOrdered By: Mago Jang on 04-21-2025 Urea nitrogen/Creatinine [Mass ratio] 13.6 mg/mg 10-20 [facility] Basophil percentageOrdered B y: Mago Jang on 04-21-2025 Basophils/100 WBC (Bld) 0.7 % 0-1 [facility] Carbon dioxide, total [Moles /volume] in Central venous bloodOrdered By: Mago Jang on 04-21-2025 CO2 [Moles/Vol] 18.1 mmol/L Low 21.0-32.0 [facility] Chloride assayOrdered By: Tariq Jang on 04-21-2025 Chloride [Moles/Vol] 99 mmol/L 98-108 [facility] Eosinophil percentageOrdered By: Mago Jang 04-21-2025 Eosinophils/100 WBC (Bld) 0.3 % 0-5 [facility] Erythrocyte distribution wid th ratioOrdered By: Mago Jang on 04-21-2025 Erythrocyte distribution width (RBC) [Ratio] 13.1 % 11.6-14.6 [facility] Erythrocyte distribution wid th standard deviationOrdered By: Mago Jang 04-21-2025 Erythrocyte distribution width (RBC) [Ratio] 43.5 fl 35.1-43.9 [facility] Glomerular filtration rate ( GFR) estimation/1.73 sq m using serum, plasma, or whole bOrdered By: Mago Jang on 04-21-2025 GFR/1.73 sq M.predicted among non-blacks MDRD (S/P/Bld) [Vol rate/Area] 98 mL/min/{1.73_m2} >60 [facility] Comment on above: mL/min/1.73m2 CKD-EP I Creatinine Equation (2020) Hematocrit Auto (Bld) [Volum e fraction]Ordered By: Mago Jang on 04-21-2025 Hematocrit (Bld) [Volume fraction] 49.5 % High 37-47 [facility] Hemoglobin measurementOrdere d By: Mago Jang on 04-21-2025 Hemoglobin (Bld) [Mass/Vol] 16.3 g/dL High 12.0-15.0 [facility] Immature granulocytes/100 WB C Auto (Bld)Ordered By: Mago Jang 04-21-2025 Immature granulocytes/100 WBC (Bld) 0.400 % 0.0-0.9 [facility] Comment on above: IG% - Immature Granu locytes (promyelocytes, myelocytes and metamyelocytes) > 1% indicates that a LEFT SHIFT is Present. International normalized rat io (INR) calculationOrdered By: Mago Jang on 04-21-2025 INR Coag (Bld) [Relative time] 1.0 {INR} [facility] MCV (mean corpuscular volume ) determinationOrdered By: Mago Jang on 04-21-2025 MCV (RBC) [Entitic vol] 91.0 fL 81-99 [facility] Magnesium measurement (mass/ volume)Ordered By: Mago Jang on 04-21-2025 Magnesium (Unsp spec) [Mass/Vol] 1.8 mg/dL 1.5-2.2 [facility] Mean corpuscular hemoglobin (MCH) determinationOrdered By: Mago Jang on 04-21-2025 MCH (RBC) [Entitic mass] 30.0 pg 27.0-32.0 [facility] Mean corpuscular hemoglobin concentration (MCHC) determinationOrdered By: Mago Jang on 04-21-2025 MCHC (RBC) [Mass/Vol] 32.9 g/dL 32-36 [facility] Mean platelet volume determi nationOrdered By: Mago Jang on 04-21-2025 Platelet mean volume (Bld) [Entitic vol] 12.9 fL High 6.2-12.0 [facility] Monocyte percentageOrdered B y: Mago Jang on 04-21-2025 Monocytes/100 WBC (Bld) 7.2 % 0-10 [facility] Natriuretic peptide.B prohor osbaldo N-Terminal [Mass/volume] in Serum or PlasmaOrdered By: Mago Jang on 04-21-2025 Natriuretic peptide.B prohormone N-Terminal [Mass/Vol] 1818 pg/mL High <900 [facility] Comment on above: Heart Failure Unlike ly: < 300 pg/mLHeart Failure Likely< 50 Years: > 450 pg/mL50-75 Years: > 900 pg/mL>75 Years: > 1800 pg/mL Neutrophil percentageOrdered By: Mago Jang on 04-21-2025 Neutrophils/100 WBC (Bld) 73.2 % High 47-70 [facility] Nucleated red blood cell per centageOrdered By: Mago Jang on 04-21-2025 Nucleated RBC/100 WBC (Bld) [Ratio] 0 % 0-5 [facility] Platelet countOrdered By: Tariq Jang on 04-21-2025 Platelets (Bld) [#/Vol] 237 10*3/uL 150-450 [facility] Potassium measurement (mass/ volume)Ordered By: Mago Jang on 04-21-2025 Potassium (Unsp spec) [Mass/Vol] 4.1 mmol/L 3.3-5.1 [facility] Prothrombin timeOrdered By: Mago Jang on 04-21-2025 PT Coag (PPP) [Time] 12.9 s 11.7-14.9 [facility] RBC Auto (Bld) [#/Vol]Ordere d By: Mago Jang on 04-21-2025 RBC (Bld) [#/Vol] 5.44 10*6/uL High 4.2-5.4 [facility] Serum creatinine measurement (mass/volume)Ordered By: Mago Jang on 04-21-2025 Creatinine [Mass/Vol] 0.69 mg/dL Low 0.70-1.20 [facility] Serum glucose measurement (m ass/volume)Ordered By: Mago Jang on 04-21-2025 Glucose [Mass/Vol] 320 mg/dL High 70-99 [facility] Serum or plasma calcium sylvia urement (mass/volume)Ordered By: Mago Jang on 04-21-2025 Calcium [Mass/Vol] 9.3 mg/dL 7.6-11.0 [facility] Serum or plasma urea nitroge n measurement (mass/volume)Ordered By: Mago Jang on 04-21-2025 Urea nitrogen [Mass/Vol] 9 mg/dL 4-19 [facility] Sodium levelOrdered By: Cecilia Jang on 04-21-2025 Sodium [Moles/Vol] 135 mmol/L 133-145 [facility] Troponin T.cardiac [Mass/vol ume] in Serum or Plasma by High sensitivity methodOrdered By: Mago Jang on 04-21-2025 Troponin T.cardiac High sensitivity method [Mass/Vol] 36 ng/L High <14 [facility] Troponin T.cardiac High sensitivity method [Mass/Vol] 26 ng/L High <14 [facility] Comment on above: Delta: 142 on -2013 White blood cell (WBC) count Ordered By: Mago Jang on 04-21-2025 WBC (Bld) [#/Vol] 13.9 10*3/uL High 4.4-11.0 [facility] Cardiology Visit Reporton Cardiology Visit Report [facility] 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 Normal [facility] CBC W/Diff, Automatedon - Absolute Neut Normal 2.0-7.7 [facility] Comment on above: Result Comment: Canc elled via OM: Order cancelled - Patient discharged Performed By: #### L 500.4100, L500.4050, L100.0100 #### [facility] [address] [place], [place], [id number] HCT Normal 37-47 [facility] Comment on above: Result Comment: Canc elled via OM: Order cancelled - Patient discharged Performed By: #### L 500.4100, L500.4050, L100.0100 #### [facility] [address] [place], [address] HGB Normal 12.0-15.0 [facility] Comment on above: Result Comment: Canc elled via OM: Order cancelled - Patient discharged Performed By: #### L 500.4100, L500.4050, L100.0100 #### [facility] [address] [place], [address] MCH Normal 27.0-32.0 [facility] Comment on above: Result Comment: Canc elled via OM: Order cancelled - Patient discharged Performed By: #### L 500.4100, L500.4050, L100.0100 #### [facility] [address] [place], [address] MCHC Normal 32-36 [facility] Comment on above: Result Comment: Canc elled via OM: Order cancelled - Patient discharged Performed By: #### L 500.4100, L500.4050, L100.0100 #### [facility] [address] [place], [address] MCV Normal 81-99 [facility] Comment on above: Result Comment: Canc elled via OM: Order cancelled - Patient discharged Performed By: #### L 500.4100, L500.4050, L100.0100 #### [facility] [address] [place], [address] NEUT% Normal 47-70 [facility] Comment on above: Result Comment: Canc elled via OM: Order cancelled - Patient discharged Performed By: #### L 500.4100, L500.4050, L100.0100 #### [facility] [address] [place], [address] PLT Normal 150-450 [facility] Comment on above: Result Comment: Canc elled via OM: Order cancelled - Patient discharged Performed By: #### L 500.4100, L500.4050, L100.0100 #### [facility] [address] [place], [address] RBC Normal 4.2-5.4 [facility] Comment on above: Result Comment: Canc elled via OM: Order cancelled - Patient discharged Performed By: #### L 500.4100, L500.4050, L100.0100 #### [facility] [address] [place], [address] RDW CV Normal 11.6-14.6 [facility] Comment on above: Result Comment: Canc elled via OM: Order cancelled - Patient discharged Performed By: #### L 500.4100, L500.4050, L100.0100 #### [facility] [address] [place], [address] RDW SD Normal 35.1-43.9 [facility] Comment on above: Result Comment: Canc elled via OM: Order cancelled - Patient discharged Performed By: #### L 500.4100, L500.4050, L100.0100 #### [facility] [address] [place], [address] WBC Normal 4.4-11.0 [facility] Comment on above: Result Comment: Canc elled via OM: Order cancelled - Patient discharged Performed By: #### L 500.4100, L500.4050, L100.0100 #### [facility] [address] [place], [address] Comprehensive Metabolic Prof ilon 04-06-2025 ALB Normal 3.4-4.8 [facility] Comment on above: Result Comment: Canc elled via OM: Order cancelled - Patient discharged Performed By: #### L 500.4100, L500.4050, L100.0100 #### [facility] [address] [place], [address] ALK PHOS Normal 35-104 [facility] Comment on above: Result Comment: Canc elled via OM: Order cancelled - Patient discharged Performed By: #### L 500.4100, L500.4050, L100.0100 #### [facility] [address] [place], [address] ALT Normal <=34 [facility] Comment on above: Result Comment: Canc elled via OM: Order cancelled - Patient discharged Performed By: #### L 500.4100, L500.4050, L100.0100 #### [facility] [address] [place], [address] AST Normal <=31 [facility] Comment on above: Result Comment: Canc elled via OM: Order cancelled - Patient discharged Performed By: #### L 500.4100, L500.4050, L100.0100 #### [facility] [address] [place], [address] BUN Normal 4-19 [facility] Comment on above: Result Comment: Canc elled via OM: Order cancelled - Patient discharged Performed By: #### L 500.4100, L500.4050, L100.0100 #### [facility] [address] [place], [address] BUN/CRE Normal 10-20 [facility] Comment on above: Result Comment: Canc elled via OM: Order cancelled - Patient discharged Performed By: #### L 500.4100, L500.4050, L100.0100 #### [facility] [address] [place], [address] Calcium Normal 7.6-11.0 [facility] Comment on above: Result Comment: Canc elled via OM: Order cancelled - Patient discharged Performed By: #### L 500.4100, L500.4050, L100.0100 #### [facility] [address] [place], [address] CL Normal 98-108 [facility] Comment on above: Result Comment: Canc elled via OM: Order cancelled - Patient discharged Performed By: #### L 500.4100, L500.4050, L100.0100 #### [facility] [address] [place], [address] CO2 Normal 21.0-32.0 [facility] Comment on above: Result Comment: Canc elled via OM: Order cancelled - Patient discharged Performed By: #### L 500.4100, L500.4050, L100.0100 #### [facility] [address] [place], [address] CREAT,SERUM Normal 0.70-1.20 [facility] Comment on above: Result Comment: Canc elled via OM: Order cancelled - Patient discharged Performed By: #### L 500.4100, L500.4050, L100.0100 #### [facility] [address] [place], [address] eGFR Normal >60 [facility] Comment on above: Result Comment: Canc elled via OM: Order cancelled - Patient discharged Performed By: #### L 500.4100, L500.4050, L100.0100 #### [facility] [address] [place], [address] GAP Normal 5-15 [facility] Comment on above: Result Comment: Canc elled via OM: Order cancelled - Patient discharged Performed By: #### L 500.4100, L500.4050, L100.0100 #### [facility] [address] [place], [address] GLU Normal 70-99 [facility] Comment on above: Result Comment: Canc elled via OM: Order cancelled - Patient discharged Performed By: #### L 500.4100, L500.4050, L100.0100 #### [facility] [address] [place], [address] Potassium Normal 3.3-5.1 [facility] Comment on above: Result Comment: Canc elled via OM: Order cancelled - Patient discharged Performed By: #### L 500.4100, L500.4050, L100.0100 #### [facility] [address] [place], [address] T BILI Normal 0.00-1.30 [facility] Comment on above: Result Comment: Canc elled via OM: Order cancelled - Patient discharged Performed By: #### L 500.4100, L500.4050, L100.0100 #### [facility] [address] [place], [address] T PROT Normal 5.9-8.4 [facility] Comment on above: Result Comment: Canc elled via OM: Order cancelled - Patient discharged Performed By: #### L 500.4100, L500.4050, L100.0100 #### [facility] [address] [place], [address] Comprehensive Metabolic Profil Normal 133-145 [facility] Comment on above: Result Comment: Canc elled via OM: Order cancelled - Patient discharged Performed By: #### L 500.4100, L500.4050, L100.0100 #### [facility] [address] [place], [address] CBC W/Diff, Automatedon 07- Absolute Neut Normal 2.0-7.7 [facility] Comment on above: Result Comment: Canc elled via OM: Order cancelled - Patient discharged Performed By: #### L 500.4100, L500.4050, L100.0100 #### [facility] [address] [place], [address] HCT Normal 37-47 [facility] Comment on above: Result Comment: Canc elled via OM: Order cancelled - Patient discharged Performed By: #### L 500.4100, L500.4050, L100.0100 #### [facility] [address] [place], [address] HGB Normal 12.0-15.0 [facility] Comment on above: Result Comment: Canc elled via OM: Order cancelled - Patient discharged Performed By: #### L 500.4100, L500.4050, L100.0100 #### [facility] [address] [place], [address] MCH Normal 27.0-32.0 [facility] Comment on above: Result Comment: Canc elled via OM: Order cancelled - Patient discharged Performed By: #### L 500.4100, L500.4050, L100.0100 #### [facility] [address] [place], [address] MCHC Normal 32-36 [facility] Comment on above: Result Comment: Canc elled via OM: Order cancelled - Patient discharged Performed By: #### L 500.4100, L500.4050, L100.0100 #### [facility] [address] [place], [address] MCV Normal 81-99 [facility] Comment on above: Result Comment: Canc elled via OM: Order cancelled - Patient discharged Performed By: #### L 500.4100, L500.4050, L100.0100 #### [facility] [address] [place], [address] NEUT% Normal 47-70 [facility] Comment on above: Result Comment: Canc elled via OM: Order cancelled - Patient discharged Performed By: #### L 500.4100, L500.4050, L100.0100 #### [facility] [address] [place], [address] PLT Normal 150-450 [facility] Comment on above: Result Comment: Canc elled via OM: Order cancelled - Patient discharged Performed By: #### L 500.4100, L500.4050, L100.0100 #### [facility] [address] [place], [address] RBC Normal 4.2-5.4 [facility] Comment on above: Result Comment: Canc elled via OM: Order cancelled - Patient discharged Performed By: #### L 500.4100, L500.4050, L100.0100 #### [facility] [address] [place], [address] RDW CV Normal 11.6-14.6 [facility] Comment on above: Result Comment: Canc elled via OM: Order cancelled - Patient discharged Performed By: #### L 500.4100, L500.4050, L100.0100 #### [facility] [address] [place], [address] RDW SD Normal 35.1-43.9 [facility] Comment on above: Result Comment: Canc elled via OM: Order cancelled - Patient discharged Performed By: #### L 500.4100, L500.4050, L100.0100 #### [facility] [address] [place], [address] WBC Normal 4.4-11.0 [facility] Comment on above: Result Comment: Canc elled via OM: Order cancelled - Patient discharged Performed By: #### L 500.4100, L500.4050, L100.0100 #### [facility] [address] [place], [address] Comprehensive Metabolic Prof ilon 04-05-2025 ALB Normal 3.4-4.8 [facility] Comment on above: Result Comment: Canc elled via OM: Order cancelled - Patient discharged Performed By: #### L 500.4100, L500.4050, L100.0100 #### [facility] [address] [place], [address] ALK PHOS Normal 35-104 [facility] Comment on above: Result Comment: Canc elled via OM: Order cancelled - Patient discharged Performed By: #### L 500.4100, L500.4050, L100.0100 #### [facility] [address] [place], [address] ALT Normal <=34 [facility] Comment on above: Result Comment: Canc elled via OM: Order cancelled - Patient discharged Performed By: #### L 500.4100, L500.4050, L100.0100 #### [facility] [address] [place], [address] AST Normal <=31 [facility] Comment on above: Result Comment: Canc elled via OM: Order cancelled - Patient discharged Performed By: #### L 500.4100, L500.4050, L100.0100 #### [facility] [address] [place], [address] BUN Normal 4-19 [facility] Comment on above: Result Comment: Canc elled via OM: Order cancelled - Patient discharged Performed By: #### L 500.4100, L500.4050, L100.0100 #### [facility] [address] [place], [address] BUN/CRE Normal 10-20 [facility] Comment on above: Result Comment: Canc elled via OM: Order cancelled - Patient discharged Performed By: #### L 500.4100, L500.4050, L100.0100 #### [facility] [address] [place], [address] Calcium Normal 7.6-11.0 [facility] Comment on above: Result Comment: Canc elled via OM: Order cancelled - Patient discharged Performed By: #### L 500.4100, L500.4050, L100.0100 #### [facility] [address] [place], [address] CL Normal 98-108 [facility] Comment on above: Result Comment: Canc elled via OM: Order cancelled - Patient discharged Performed By: #### L 500.4100, L500.4050, L100.0100 #### [facility] [address] [place], [address] CO2 Normal 21.0-32.0 [facility] Comment on above: Result Comment: Canc elled via OM: Order cancelled - Patient discharged Performed By: #### L 500.4100, L500.4050, L100.0100 #### [facility] [address] [place], [address] CREAT,SERUM Normal 0.70-1.20 [facility] Comment on above: Result Comment: Canc elled via OM: Order cancelled - Patient discharged Performed By: #### L 500.4100, L500.4050, L100.0100 #### [facility] [address] [place], [address] eGFR Normal >60 [facility] Comment on above: Result Comment: Canc elled via OM: Order cancelled - Patient discharged Performed By: #### L 500.4100, L500.4050, L100.0100 #### [facility] [address] [place], [address] GAP Normal 5-15 [facility] Comment on above: Result Comment: Canc elled via OM: Order cancelled - Patient discharged Performed By: #### L 500.4100, L500.4050, L100.0100 #### [facility] [address] [place], [address] GLU Normal 70-99 [facility] Comment on above: Result Comment: Canc elled via OM: Order cancelled - Patient discharged Performed By: #### L 500.4100, L500.4050, L100.0100 #### [facility] [address] [place], [address] Potassium Normal 3.3-5.1 [facility] Comment on above: Result Comment: Canc elled via OM: Order cancelled - Patient discharged Performed By: #### L 500.4100, L500.4050, L100.0100 #### [facility] [address] [place], [address] T BILI Normal 0.00-1.30 [facility] Comment on above: Result Comment: Canc elled via OM: Order cancelled - Patient discharged Performed By: #### L 500.4100, L500.4050, L100.0100 #### [facility] [address] [place], [address] T PROT Normal 5.9-8.4 [facility] Comment on above: Result Comment: Canc elled via OM: Order cancelled - Patient discharged Performed By: #### L 500.4100, L500.4050, L100.0100 #### [facility] [address] [place], [address] Comprehensive Metabolic Profil Normal 133-145 [facility] Comment on above: Result Comment: Canc elled via OM: Order cancelled - Patient discharged Performed By: #### L 500.4100, L500.4050, L100.0100 #### [facility] [address] [place], [address] CBC W/Diff, Automatedon 07-1 -2024 Absolute Neut Normal 2.0-7.7 [facility] Comment on above: Result Comment: Canc elled via OM: Order cancelled - Patient discharged Performed By: #### L 500.4100, L500.4050, L100.0100 #### [facility] [address] [place], [address] HCT Normal 37-47 [facility] Comment on above: Result Comment: Canc elled via OM: Order cancelled - Patient discharged Performed By: #### L 500.4100, L500.4050, L100.0100 #### [facility] [address] [place], [address] HGB Normal 12.0-15.0 [facility] Comment on above: Result Comment: Canc elled via OM: Order cancelled - Patient discharged Performed By: #### L 500.4100, L500.4050, L100.0100 #### [facility] [address] [place], [address] MCH Normal 27.0-32.0 [facility] Comment on above: Result Comment: Canc elled via OM: Order cancelled - Patient discharged Performed By: #### L 500.4100, L500.4050, L100.0100 #### [facility] [address] [place], [address] MCHC Normal 32-36 [facility] Comment on above: Result Comment: Canc elled via OM: Order cancelled - Patient discharged Performed By: #### L 500.4100, L500.4050, L100.0100 #### [facility] [address] [place], [address] MCV Normal 81-99 [facility] Comment on above: Result Comment: Canc elled via OM: Order cancelled - Patient discharged Performed By: #### L 500.4100, L500.4050, L100.0100 #### [facility] [address] [place], [address] NEUT% Normal 47-70 [facility] Comment on above: Result Comment: Canc elled via OM: Order cancelled - Patient discharged Performed By: #### L 500.4100, L500.4050, L100.0100 #### [facility] [address] [place], [address] PLT Normal 150-450 [facility] Comment on above: Result Comment: Canc elled via OM: Order cancelled - Patient discharged Performed By: #### L 500.4100, L500.4050, L100.0100 #### [facility] [address] [place], [address] RBC Normal 4.2-5.4 [facility] Comment on above: Result Comment: Canc elled via OM: Order cancelled - Patient discharged Performed By: #### L 500.4100, L500.4050, L100.0100 #### [facility] [address] [place], [address] RDW CV Normal 11.6-14.6 [facility] Comment on above: Result Comment: Canc elled via OM: Order cancelled - Patient discharged Performed By: #### L 500.4100, L500.4050, L100.0100 #### [facility] [address] [place], [address] RDW SD Normal 35.1-43.9 [facility] Comment on above: Result Comment: Canc elled via OM: Order cancelled - Patient discharged Performed By: #### L 500.4100, L500.4050, L100.0100 #### [facility] [address] [place], [address] WBC Normal 4.4-11.0 [facility] Comment on above: Result Comment: Canc elled via OM: Order cancelled - Patient discharged Performed By: #### L 500.4100, L500.4050, L100.0100 #### [facility] [address] [place], [address] CRP, High Sensitivity 253350 on 04-04-2025 CRP, HIGH SENS 9.59 mg/L High 0.00-3.00 [facility] Comment on above: Order Comment: LOCAT ION TG73A TG75G Result Comment: Rela tive Risk for Future Cardiovascular Event Low <1.00 Average 1.00 - 3.00 High >3.00 Performed at: [facility] [address] [id number] Councilman: Jony Fitzpatrick PhD, Phone: [phone] Performed By: #### L 3100.7870, L501.4021 ####[facility] [address] [place], [address] Comprehensive Metabolic Prof ilon 04-04-2025 ALB Normal 3.4-4.8 [facility] Comment on above: Result Comment: Canc elled via OM: Order cancelled - Patient discharged Performed By: #### L 500.4100, L500.4050, L100.0100 #### [facility] [address] [place], [address] ALK PHOS Normal 35-104 [facility] Comment on above: Result Comment: Canc elled via OM: Order cancelled - Patient discharged Performed By: #### L 500.4100, L500.4050, L100.0100 #### [facility] [address] [place], [address] ALT Normal <=34 [facility] Comment on above: Result Comment: Canc elled via OM: Order cancelled - Patient discharged Performed By: #### L 500.4100, L500.4050, L100.0100 #### [facility] [address] [place], [address] AST Normal <=31 [facility] Comment on above: Result Comment: Canc elled via OM: Order cancelled - Patient discharged Performed By: #### L 500.4100, L500.4050, L100.0100 #### [facility] [address] [place], [address] BUN Normal 4-19 [facility] Comment on above: Result Comment: Canc elled via OM: Order cancelled - Patient discharged Performed By: #### L 500.4100, L500.4050, L100.0100 #### [facility] [address] [place], [address] BUN/CRE Normal 10-20 [facility] Comment on above: Result Comment: Canc elled via OM: Order cancelled - Patient discharged Performed By: #### L 500.4100, L500.4050, L100.0100 #### [facility] [address] [place], [address] Calcium Normal 7.6-11.0 [facility] Comment on above: Result Comment: Canc elled via OM: Order cancelled - Patient discharged Performed By: #### L 500.4100, L500.4050, L100.0100 #### [facility] [address] [place], [address] CL Normal 98-108 [facility] Comment on above: Result Comment: Canc elled via OM: Order cancelled - Patient discharged Performed By: #### L 500.4100, L500.4050, L100.0100 #### [facility] [address] [place], [address] CO2 Normal 21.0-32.0 [facility] Comment on above: Result Comment: Canc elled via OM: Order cancelled - Patient discharged Performed By: #### L 500.4100, L500.4050, L100.0100 #### [facility] [address] [place], [address] CREAT,SERUM Normal 0.70-1.20 [facility] Comment on above: Result Comment: Canc elled via OM: Order cancelled - Patient discharged Performed By: #### L 500.4100, L500.4050, L100.0100 #### [facility] [address] [place], [address] eGFR Normal >60 [facility] Comment on above: Result Comment: Canc elled via OM: Order cancelled - Patient discharged Performed By: #### L 500.4100, L500.4050, L100.0100 #### [facility] [address] [place], [address] GAP Normal 5-15 [facility] Comment on above: Result Comment: Canc elled via OM: Order cancelled - Patient discharged Performed By: #### L 500.4100, L500.4050, L100.0100 #### [facility] [address] [place], [address] GLU Normal 70-99 [facility] Comment on above: Result Comment: Canc elled via OM: Order cancelled - Patient discharged Performed By: #### L 500.4100, L500.4050, L100.0100 #### [facility] [address] [place], [address] Potassium Normal 3.3-5.1 [facility] Comment on above: Result Comment: Canc elled via OM: Order cancelled - Patient discharged Performed By: #### L 500.4100, L500.4050, L100.0100 #### [facility] [address] [place], [address] T BILI Normal 0.00-1.30 [facility] Comment on above: Result Comment: Canc elled via OM: Order cancelled - Patient discharged Performed By: #### L 500.4100, L500.4050, L100.0100 #### [facility] [address] [place], [address] T PROT Normal 5.9-8.4 [facility] Comment on above: Result Comment: Canc elled via OM: Order cancelled - Patient discharged Performed By: #### L 500.4100, L500.4050, L100.0100 #### [facility] [address] [place], [address] Comprehensive Metabolic Profil Normal 133-145 [facility] Comment on above: Result Comment: Canc elled via OM: Order cancelled - Patient discharged Performed By: #### L 500.4100, L500.4050, L100.0100 #### [facility] [address] [place], [address] Absolute lymphocyte countOrd ered By: Amaris Patricia on 04-03-2025 Lymphocytes Auto (Unsp spec) [#/Vol] 2.04 10*3/uL 0.83-4.51 [facility] Absolute neutrophil countOrd ered By: [facility] Patricia on 04-03-2025 Neutrophils (Bld) [#/Vol] 3.1 10*3/uL 2.0-7.7 [facility] Anion gap in Serum or Plasma Ordered By: [facility] Patricia on 04-03-2025 Anion gap [Moles/Vol] 12 mmol/L 5-15 [facility] Automated lymphocyte count a s percentage of total leukocytesOrdered By: Amaris Patricia on 04-03-2025 Lymphocytes/100 WBC Auto (Unsp spec) 34.3 % 19-41 [facility] BUN/creatinine ratioOrdered By: Amaris Patricia on 04-03-2025 Urea nitrogen/Creatinine [Mass ratio] 25.0 mg/mg High 10-20 [facility] Basophil percentageOrdered B y: Amaris Patricia on 04-03-2025 Basophils/100 WBC (Bld) 1.0 % 0-1 [facility] Bedside Glucoseon 04-03-2025 [place] GLU 231 mg/dL High 74-106 [facility] Comment on above: Result Comment: [place] OF PATIENT CARE PER NURSING PROTOCOL Performed By: #### L 500.4100, L500.4050, L100.0100 #### [facility] [address] [place], [address] Bilirubin, totalOrdered By: Amaris Gomez on 04-03-2025 Bilirubin [Mass/Vol] 0.59 mg/dL 0.00-1.30 [facility] CBC W/Diff, Automatedon 03-24 Absolute Lymph 2.04 X10 3/uL Normal 0.83-4.51 [facility] Comment on above: Performed By: #### L 500.4100, L500.4050, L100.0100 #### [facility] [address] [place], [address] Absolute Neut 3.1 X10 3/uL Normal 2.0-7.7 [facility] Comment on above: Performed By: #### L 500.4100, L500.4050, L100.0100 #### [facility] [address] [place], [address] Basophils/100 WBC (Bld) 1.0 % Normal 0-1 [facility] Comment on above: Performed By: #### L 500.4100, L500.4050, L100.0100 #### [facility] [address] [place], [address] Eosinophils/100 WBC (Bld) 1.2 % Normal 0-5 [facility] Comment on above: Performed By: #### L 500.4100, L500.4050, L100.0100 #### [facility] [address] [place], [address] Erythrocyte distribution width (RBC) [Ratio] 14.2 % Normal 11.6-14.6 [facility] Comment on above: Performed By: #### L 500.4100, L500.4050, L100.0100 #### [facility] [address] [place], [address] Hematocrit (Bld) [Volume fraction] 42.3 % Normal 37-47 [facility] Comment on above: Performed By: #### L 500.4100, L500.4050, L100.0100 #### [facility] [address] [place], [address] Hemoglobin (Bld) [Mass/Vol] 13.9 g/dL Normal 12.0-15.0 [facility] Comment on above: Performed By: #### L 500.4100, L500.4050, L100.0100 #### [facility] [address] [place], [address] IG% 0.200 Normal 0.0-0.9 [facility] Comment on above: Result Comment: IG% - Immature Granulocytes (promyelocytes, myelocytes and metamyelocytes) > 1% indicates that a LEFT SHIFT is Present. Performed By: #### L 500.4100, L500.4050, L100.0100 #### [facility] [address] [place], [address] Lymphocytes/100 WBC (Bld) 34.3 % Normal 19-41 [facility] Comment on above: Performed By: #### L 500.4100, L500.4050, L100.0100 #### [facility] [address] [place], [address] MCH (RBC) [Entitic mass] 30.2 pg Normal 27.0-32.0 [facility] Comment on above: Performed By: #### L 500.4100, L500.4050, L100.0100 #### [facility] [address] [place], [address] MCHC (RBC) [Mass/Vol] 32.9 g/dL Normal 32-36 [facility] Comment on above: Performed By: #### L 500.4100, L500.4050, L100.0100 #### [facility] [address] [place], [address] MCV (RBC) [Entitic vol] 91.8 fL Normal 81-99 [facility] Comment on above: Performed By: #### L 500.4100, L500.4050, L100.0100 #### [facility] [address] [place], [address] Monocytes/100 WBC (Bld) 11.9 % High 0-10 [facility] Comment on above: Performed By: #### L 500.4100, L500.4050, L100.0100 #### [facility] [address] [place], [address] Neutrophils/100 WBC (Bld) 51.4 % Normal 47-70 [facility] Comment on above: Performed By: #### L 500.4100, L500.4050, L100.0100 #### [facility] [address] [place], [address] Nucleated RBC (Bld) [#/Vol] 0 10*3/uL Normal 0-5 [facility] Comment on above: Performed By: #### L 500.4100, L500.4050, L100.0100 #### [facility] [address] [place], [address] Platelet mean volume (Bld) [Entitic vol] 12.8 fL High 6.2-12.0 [facility] Comment on above: Performed By: #### L 500.4100, L500.4050, L100.0100 #### [facility] [address] [place], [address] Platelets (Bld) [#/Vol] 206 10*3/uL Normal 150-450 [facility] Comment on above: Performed By: #### L 500.4100, L500.4050, L100.0100 #### [facility] [address] [place], [address] RBC (Bld) [#/Vol] 4.61 10*6/uL Normal 4.2-5.4 [facility] Comment on above: Performed By: #### L 500.4100, L500.4050, L100.0100 #### [facility] [address] [place], [address] RDW SD 47.4 fl High 35.1-43.9 [facility] Comment on above: Performed By: #### L 500.4100, L500.4050, L100.0100 #### [facility] [address] [place], [address] WBC (Bld) [#/Vol] 6.0 10*3/uL Normal 4.4-11.0 [facility] Comment on above: Performed By: #### L 500.4100, L500.4050, L100.0100 #### [facility] [address] [place], [address] Calculated very low density lipoprotein (VLDL) cholesterol measurementOrdered By: Amaris Gomez on 04-03-2025 Calculated very low density lipoprotein (VLDL) cholesterol measurement 67 mg/dL High 5-40 [facility] Carbon dioxide, total [Moles /volume] in Central venous bloodOrdered By: Amaris Gomez on 04-03-2025 CO2 [Moles/Vol] 22.5 mmol/L 21.0-32.0 [facility] Chloride assayOrdered By: Stephany Gomez on 04-03-2025 Chloride [Moles/Vol] 103 mmol/L 98-108 [facility] Comprehensive Metabolic Prof ilon 04-03-2025 Albumin [Mass/Vol] 3.8 g/dL Normal 3.4-4.8 [facility] Comment on above: Performed By: #### L 500.4100, L500.4050, L100.0100 #### [facility] [address] [place], [address] Albumin/Globulin [Mass ratio] 1.5 {ratio} Normal 0.9-2.4 [facility] Comment on above: Performed By: #### L 500.4100, L500.4050, L100.0100 #### [facility] [address] [place], [address] ALK PHOS 127 U/L High 35-104 [facility] Comment on above: Performed By: #### L 500.4100, L500.4050, L100.0100 #### [facility] [address] [place], [address] ALT [Catalytic activity/Vol] 57 U/L High <=34 [facility] Comment on above: Performed By: #### L 500.4100, L500.4050, L100.0100 #### [facility] [address] [place], [address] AST [Catalytic activity/Vol] 26 U/L Normal <=31 [facility] Comment on above: Performed By: #### L 500.4100, L500.4050, L100.0100 #### [facility] [address] [place], [address] Bilirubin [Mass/Vol] 0.59 mg/dL Normal 0.00-1.30 [facility] Comment on above: Performed By: #### L 500.4100, L500.4050, L100.0100 #### [facility] [address] [place], [address] BUN/CRE 25.0 RATIO High 10-20 [facility] Comment on above: Performed By: #### L 500.4100, L500.4050, L100.0100 #### [facility] [address] [place], [address] Calcium [Mass/Vol] 9.1 mg/dL Normal 7.6-11.0 [facility] Comment on above: Performed By: #### L 500.4100, L500.4050, L100.0100 #### [facility] [address] [place], [address] Chloride [Moles/Vol] 103 mmol/L Normal 98-108 [facility] Comment on above: Performed By: #### L 500.4100, L500.4050, L100.0100 #### [facility] [address] [place], [address] CO2 [Moles/Vol] 22.5 mmol/L Normal 21.0-32.0 [facility] Comment on above: Performed By: #### L 500.4100, L500.4050, L100.0100 #### [facility] [address] [place], [address] Creatinine [Mass/Vol] 0.54 mg/dL Low 0.70-1.20 [facility] Comment on above: Performed By: #### L 500.4100, L500.4050, L100.0100 #### [facility] [address] [place], [address] ECRCL 124.11 ml/min Normal 50-250 [facility] Comment on above: Performed By: #### L 500.4100, L500.4050, L100.0100 #### [facility] [address] [place], [address] GAP 12 Normal 5-15 [facility] Comment on above: Performed By: #### L 500.4100, L500.4050, L100.0100 #### [facility] [address] [place], [address] GFR/1.73 sq M.predicted among non-blacks MDRD (S/P/Bld) [Vol rate/Area] 104 mL/min/{1.73_m2} Normal >60 [facility] Comment on above: Result Comment: mL/m in/1.73m2 CKD-EPI Creatinine Equation (2020) Performed By: #### L 500.4100, L500.4050, L100.0100 #### [facility] [address] [place], [address] Globulin (S) [Mass/Vol] 2.6 g/dL Normal 2.2-4.2 [facility] Comment on above: Performed By: #### L 500.4100, L500.4050, L100.0100 #### [facility] [address] [place], [address] Glucose [Mass/Vol] 250 mg/dL High 70-99 [facility] Comment on above: Performed By: #### L 500.4100, L500.4050, L100.0100 #### [facility] [address] [place], [address] Potassium [Moles/Vol] 3.8 mmol/L Normal 3.3-5.1 [facility] Comment on above: Performed By: #### L 500.4100, L500.4050, L100.0100 #### [facility] [address] [place], [address] Sodium [Moles/Vol] 137 mmol/L Normal 133-145 [facility] Comment on above: Performed By: #### L 500.4100, L500.4050, L100.0100 #### [facility] [address] [place], [address] T PROT 6.4 g/dL Normal 5.9-8.4 [facility] Comment on above: Performed By: #### L 500.4100, L500.4050, L100.0100 #### [facility] [address] [place], [address] Urea nitrogen [Mass/Vol] 13 mg/dL Normal 4-19 [facility] Comment on above: Performed By: #### L 500.4100, L500.4050, L100.0100 #### [facility] [address] [place], [address] Discharge Instructionon 03-24 Discharge Instruction [facility] Medical Records Department [address] [place] [address] Instructions for Home/Discharge Instructions 04/03/25718 MR#: [id number] Acct: [id number] Name: EAMON HUSTON Rep #: [id number] : 1960 64 From: Amaris Gomez MD [...] follow-up (call (more content not included)... Normal [facility] Eosinophil percentageOrdered By: Amaris Gomez on 04-03-2025 Eosinophils/100 WBC (Bld) 1.2 % 0-5 [facility] Erythrocyte distribution wid th ratioOrdered By: Amaris Gomez on 04-03-2025 Erythrocyte distribution width (RBC) [Ratio] 14.2 % 11.6-14.6 [facility] Erythrocyte distribution wid th standard deviationOrdered By: Amaris Gomez on 04-03-2025 Erythrocyte distribution width (RBC) [Ratio] 47.4 fl High 35.1-43.9 [facility] Glomerular filtration rate ( GFR) estimation/1.73 sq m using serum, plasma, or whole bOrdered By: Amaris Gomez on 04-03-2025 GFR/1.73 sq M.predicted among non-blacks MDRD (S/P/Bld) [Vol rate/Area] 104 mL/min/{1.73_m2} >60 [facility] Comment on above: mL/min/1.73m2 CKD-EP I Creatinine Equation (2020) [facility] By: Amaris Gomez on 04-03-2025 Glucose [Mass/Vol] 231 mg/dL High 74-106 [facility] Comment on above: MANAGEMENT OF PATIEN T CARE PER NURSING PROTOCOL Hematocrit Auto (Bld) [Volum e fraction]Ordered By: Amaris Gomez on 04-03-2025 Hematocrit (Bld) [Volume fraction] 42.3 % 37-47 [facility] Hemoglobin measurementOrdere d By: Amaris Gomez on 04-03-2025 Hemoglobin (Bld) [Mass/Vol] 13.9 g/dL 12.0-15.0 [facility] Immature granulocytes/100 WB C Auto (Bld)Ordered By: Amaris Gomez on 04-03-2025 Immature granulocytes/100 WBC (Bld) 0.200 % 0.0-0.9 [facility] Comment on above: IG% - Immature Granu locytes (promyelocytes, myelocytes and metamyelocytes) > 1% indicates that a LEFT SHIFT is Present. LDL calc ser/plasOrdered By: Amaris Gomez on 04-03-2025 Cholesterol in LDL [Mass/Vol] 123 mg/dL [facility] Comment on above: Idkkeunlpc=978-858 m g/dL & Higher Mwvi=784 mg/dL or greater Laboratory - Chemistry and C hemistry - challengeOrdered By: Amaris Gomez on 04-03-2025 AST [Catalytic activity/Vol] 26 U/L <32 [facility] Lipid Profileon 04-03-2025 CHOL:HDL 7.87 Normal [facility] Comment on above: Performed By: #### L 500.4100, L500.4050, L100.0100 #### [facility] [address] [place], [address] Cholesterol [Mass/Vol] 218 mg/dL High <=200 [facility] Comment on above: Result Comment: Chol esterol level, Desirable <200 mg/dL Borderline high cholesterol 200-239 mg/dL High cholesterol >=240 mg/dL Recommendations of the NCEP Adult Treatment Panel for the following risk-cutoff thresholds for the [place] population. Performed By: #### L 500.4100, L500.4050, L100.0100 #### [facility] [address] [place], [address] Cholesterol in HDL [Mass/Vol] 28 mg/dL Low [facility] Comment on above: Result Comment: [place] onal Cholesterol Education Program (NCEP) guidelines: <40 mg/dL: Low HDL-cholesterol (major risk factor for CHD) >= 60 mg/dL: High HDL-cholesterol (negative risk factor for CHD) HDL-cholesterol is affected by a number of factors, e.g. smoking, exercise, hormones, sex and age. Performed By: #### L 500.4100, L500.4050, L100.0100 #### [facility] [address] [place], [address] Cholesterol in LDL [Mass/Vol] 123 mg/dL Normal [facility] Comment on above: Result Comment: Bord qjvvvf=844-405 mg/dL Higher Wngc=679 mg/dL or greater Performed By: #### L 500.4100, L500.4050, L100.0100 #### [facility] [address] [place], [address] Cholesterol in VLDL [Mass/Vol] 67 mg/dL High 5-40 [facility] Comment on above: Performed By: #### L 500.4100, L500.4050, L100.0100 #### [facility] [address] [place], [address] Triglyceride [Mass/Vol] 335 mg/dL High [facility] Comment on above: Result Comment: The drugs N-Acetylcysteine and Metamizole may falsely depress this assay. Normal range: <150 mg/dL Borderline High: 150-199 mg/dL High: 200-499 mg/dL Very High: >500 mg/dL Performed By: #### L 500.4100, L500.4050, L100.0100 #### [facility] [address] [place], [address] MCV (mean corpuscular volume ) determinationOrdered By: Amaris Gomez on 04-03-2025 MCV (RBC) [Entitic vol] 91.8 fL 81-99 [facility] Magnesiumon 04-03-2025 Magnesium [Mass/Vol] 2.0 mg/dL Normal 1.5-2.2 [facility] Comment on above: Performed By: #### L 501.2300, L501.5200 ####[facility] [address] [place], [address] Magnesium measurement (mass/ volume)Ordered By: Franko Cueto on 04-03-2025 Magnesium (Unsp spec) [Mass/Vol] 2.0 mg/dL 1.5-2.2 [facility] Mean corpuscular hemoglobin (MCH) determinationOrdered By: Amaris Gomez on 04-03-2025 MCH (RBC) [Entitic mass] 30.2 pg 27.0-32.0 [facility] Mean corpuscular hemoglobin concentration (MCHC) determinationOrdered By: Amaris Gomez on 04-03-2025 MCHC (RBC) [Mass/Vol] 32.9 g/dL 32-36 [facility] Mean platelet volume determi nationOrdered By: Amaris White on 04-03-2025 Platelet mean volume (Bld) [Entitic vol] 12.8 fL High 6.2-12.0 [facility] Monocyte percentageOrdered B y: White on 04-03-2025 Monocytes/100 WBC (Bld) 11.9 % High 0-10 [facility] Neutrophil percentageOrdered By: White on 04-03-2025 Neutrophils/100 WBC (Bld) 51.4 % 47-70 [facility] Nucleated red blood cell per centageOrdered By: White on 04-03-2025 Nucleated RBC/100 WBC (Bld) [Ratio] 0 % 0-5 [facility] Phosphoruson 04-03-2025 Phosphate [Mass/Vol] 4.2 mg/dL Normal 2.7-4.5 [facility] Comment on above: Performed By: #### L 501.2300, L501.5200 ####[facility] [address] [place], [address] Platelet countOrdered By: tSephany antunez Patricia on 04-03-2025 Platelets (Bld) [#/Vol] 206 10*3/uL 150-450 [facility] Potassium measurement (mass/ volume)Ordered By: Amaris Gomez on 04-03-2025 Potassium (Unsp spec) [Mass/Vol] 3.8 mmol/L 3.3-5.1 [facility] RBC Auto (Bld) [#/Vol]Ordere d By: Amaris Gomez on 04-03-2025 RBC (Bld) [#/Vol] 4.61 10*6/uL 4.2-5.4 [facility] Screening total cholesterol/ high density lipoprotein (HDL) cholesterol ratioOrdered By: Amaris Gomez on 04-03-2025 Cholesterol.total/Michelle sterol in HDL [Mass ratio] 7.87 {ratio} [facility] Serum creatinine measurement (mass/volume)Ordered By: Amaris Gomez on 04-03-2025 Creatinine [Mass/Vol] 0.54 mg/dL Low 0.70-1.20 [facility] Serum globulin measurementOr dered By: Amaris Gomez on 04-03-2025 Globulin (S) [Mass/Vol] 2.6 g/dL 2.2-4.2 [facility] Serum glucose measurement (m ass/volume)Ordered By: Amaris Gomez on 04-03-2025 Glucose [Mass/Vol] 250 mg/dL High 70-99 [facility] Serum or plasma alanine lamb otransferase (ALT) measurementOrdered By: Amaris Gomez on 04-03-2025 ALT [Catalytic activity/Vol] 57 U/L High <35 [facility] Serum or plasma albumin sylvia urement (mass/volume)Ordered By: Amaris Gomez on 04-03-2025 Albumin [Mass/Vol] 3.8 g/dL 3.4-4.8 [facility] Serum or plasma albumin/glob ulin mass ratioOrdered By: Amaris Gomez on 04-03-2025 Albumin/Globulin [Mass ratio] 1.5 {ratio} 0.9-2.4 [facility] Serum or plasma alkaline cydney sphatase measurementOrdered By: Amaris Gomez 04-03-2025 ALP [Catalytic activity/Vol] 127 U/L High 35-104 [facility] Serum or plasma calcium sylvia urement (mass/volume)Ordered By: Amaris Gomez 04-03-2025 Calcium [Mass/Vol] 9.1 mg/dL 7.6-11.0 [facility] Serum or plasma cholesterol in HDL measurement (mass/volume)Ordered By: Amaris Gomez on 04-03-2025 Cholesterol in HDL [Mass/Vol] 28 mg/dL Low >40 [facility] Comment on above: National Cholesterol Education Program (NCEP) guidelines:<40 mg/dL: Low HDL-cholesterol (major risk factor for CHD)>= 60 mg/dL: High HDL-cholesterol (negative risk factor for CHD)HDL-cholesterol is affected by a number of factors, e.g. smoking, exercise, hormones, sex and age. Serum or plasma cholesterol measurement (mass/volume)Ordered By: Amaris Gomez on 04-03-2025 Cholesterol [Mass/Vol] 218 mg/dL High <201 [facility] Comment on above: Cholesterol level, D esirable <200 mg/dLBorderline high cholesterol 200-239 mg/dLHigh cholesterol >=240 mg/dLRecommendations of the NCEP Adult Treatment Panel for the following risk-cutoff thresholds for the [place] population. Serum or plasma urea nitroge n measurement (mass/volume)Ordered By: Amaris Gomez on 04-03-2025 Urea nitrogen [Mass/Vol] 13 mg/dL 4-19 [facility] Sodium levelOrdered By: Darrell mn White on 04-03-2025 Sodium [Moles/Vol] 137 mmol/L 133-145 [facility] Total proteinOrdered By: Hilda umn Patricia on 04-03-2025 Protein [Mass/Vol] 6.4 g/dL 5.9-8.4 [facility] Triglycerides measurementOrd ered By: Amaris Gomez on 04-03-2025 Triglyceride [Mass/Vol] 335 mg/dL High <199 [facility] Comment on above: The drugs N-Acetylcy steine and Metamizole may falsely depress this assay. Normal range: <150 mg/dLBorderline High: 150-199 mg/dLHigh: 200-499 mg/dLVery High: >500 mg/dL White blood cell (WBC) count Ordered By: Amaris Gomez on 04-03-2025 WBC (Bld) [#/Vol] 6.0 10*3/uL 4.4-11.0 [facility] ACT Activated Clotting Timeo n 04-02-2025 ACTk CLOT TIME 377 sec High 74-137 [facility] Comment on above: Performed By: #### L 500.4100, L500.4050, L100.0100 #### [facility] [address] [place], [address] ACTk CLOT TIME 187 sec High 74-137 [facility] Comment on above: Performed By: #### L 500.4100, L500.4050, L100.0100 #### [facility] [address] [place], [address] Activated partial thrombopla stin time (aPTT) in platelet poor plasma by coagulation aOrdered By: Franko Cueto on 04-02-2025 aPTT Coag (PPP) [Time] 35.9 s 24.1-36.2 [facility] Anion gap in Serum or Plasma Ordered By: Franko Cueto on 04-02-2025 Anion gap [Moles/Vol] 13 mmol/L 5-15 [facility] BUN/creatinine ratioOrdered By: Franko Cueto on 04-02-2025 Urea nitrogen/Creatinine [Mass ratio] 21.7 mg/mg High 07-13 [facility] Basic Metabolic Profile (BMP )on 04-02-2025 BUN/CRE 21.7 RATIO High 07-13 [facility] Comment on above: Performed By: #### L 500.4100, L500.4050, L100.0100 #### [facility] [address] [place], [address] Calcium [Mass/Vol] 9.2 mg/dL Normal 7.6-11.0 [facility] Comment on above: Performed By: #### L 500.4100, L500.4050, L100.0100 #### [facility] [address] [place], [address] Chloride [Moles/Vol] 103 mmol/L Normal 98-108 [facility] Comment on above: Performed By: #### L 500.4100, L500.4050, L100.0100 #### [facility] [address] [place], [address] CO2 [Moles/Vol] 21.2 mmol/L Normal 21.0-32.0 [facility] Comment on above: Performed By: #### L 500.4100, L500.4050, L100.0100 #### [facility] [address] [place], [address] Creatinine [Mass/Vol] 0.57 mg/dL Low 0.70-1.20 [facility] Comment on above: Performed By: #### L 500.4100, L500.4050, L100.0100 #### [facility] [address] [place], [address] ECRCL 115.12 ml/min Normal 50-250 [facility] Comment on above: Performed By: #### L 500.4100, L500.4050, L100.0100 #### [facility] [address] [place], [address] GAP 13 Normal 5-15 [facility] Comment on above: Performed By: #### L 500.4100, L500.4050, L100.0100 #### [facility] [address] [place], [address] GFR/1.73 sq M.predicted among non-blacks MDRD (S/P/Bld) [Vol rate/Area] 103 mL/min/{1.73_m2} Normal >60 [facility] Comment on above: Result Comment: mL/m in/1.73m2 CKD-EPI Creatinine Equation (2020) Performed By: #### L 500.4100, L500.4050, L100.0100 #### [facility] [address] [place], [address] Glucose [Mass/Vol] 253 mg/dL High 70-99 [facility] Comment on above: Performed By: #### L 500.4100, L500.4050, L100.0100 #### [facility] [address] [place], [address] Potassium [Moles/Vol] 3.9 mmol/L Normal 3.3-5.1 [facility] Comment on above: Performed By: #### L 500.4100, L500.4050, L100.0100 #### [facility] [address] [place], [address] Sodium [Moles/Vol] 137 mmol/L Normal 133-145 [facility] Comment on above: Performed By: #### L 500.4100, L500.4050, L100.0100 #### [facility] [address] [place], [address] Urea nitrogen [Mass/Vol] 12 mg/dL Normal 4-19 [facility] Comment on above: Performed By: #### L 500.4100, L500.4050, L100.0100 #### [facility] [address] [place], [address] Bedside Glucoseon 04-02-2025 FINGERSTICK GLU 303 mg/dL High [address] [place] [address] Comment on above: Result Comment: [place] GEMENT OF PATIENT CARE PER NURSING PROTOCOL Performed By: #### L 500.4100, L500.4050, L100.0100 #### [facility] [address] [place], [address] FINGERSTICK GLU 289 mg/dL High [address] [place] [address] Comment on above: Result Comment: [place] GEMENT OF PATIENT CARE PER NURSING PROTOCOL Performed By: #### L 501.080 ####[facility] [address] [place], [address] FINGERSTICK GLU 237 mg/dL High [address] [place] [address] Comment on above: Result Comment: [place] GEMENT OF PATIENT CARE PER NURSING PROTOCOL Performed By: #### L 500.4100, L500.4050, L100.0100 #### [facility] [address] [place], [address] FINGERSTICK GLU 249 mg/dL High [address] [place] [address] Comment on above: Result Comment: [place] GEMENT OF PATIENT CARE PER NURSING PROTOCOL Performed By: #### L 500.4100, L500.4050, L100.0100 #### [facility] [address] [place], [address] FINGERSTICK GLU 391 mg/dL High [address] [place] [address] Comment on above: Result Comment: [place] GEMENT OF PATIENT CARE PER NURSING PROTOCOL Performed By: #### L 500.4100, L500.4050, L100.0100 #### [facility] [address] [place], [address] CBC-Complete Blood Cnt No Di ffon 04-02-2025 Erythrocyte distribution width (RBC) [Ratio] 14.1 % Normal 11.6-14.6 [facility] Comment on above: Performed By: #### L 500.2500, L100.0500 ####[facility] [address] [place], [address] Hematocrit (Bld) [Volume fraction] 42.6 % Normal 37-47 [facility] Comment on above: Performed By: #### L 500.2500, L100.0500 ####[facility] [address] [place], [address] Hemoglobin (Bld) [Mass/Vol] 13.9 g/dL Normal 12.0-15.0 [facility] Comment on above: Performed By: #### L 500.2500, L100.0500 ####[facility] [address] [place], [address] MCH (RBC) [Entitic mass] 30.1 pg Normal 27.0-32.0 [facility] Comment on above: Performed By: #### L 500.2500, L100.0500 ####[facility] [address] [place], [address] MCHC (RBC) [Mass/Vol] 32.6 g/dL Normal 32-36 [facility] Comment on above: Performed By: #### L 500.2500, L100.0500 ####[facility] [address] [place], [address] MCV (RBC) [Entitic vol] 92.2 fL Normal 81-99 [facility] Comment on above: Performed By: #### L 500.2500, L100.0500 ####[facility] [address] [place], [address] Platelet mean volume (Bld) [Entitic vol] 13.0 fL High 6.2-12.0 [facility] Comment on above: Performed By: #### L 500.2500, L100.0500 ####[facility] [address] [place], [address] Platelets (Bld) [#/Vol] 211 10*3/uL Normal 150-450 [facility] Comment on above: Performed By: #### L 500.2500, L100.0500 ####[facility] [address] [place], [address] RBC (Bld) [#/Vol] 4.62 10*6/uL Normal 4.2-5.4 [facility] Comment on above: Performed By: #### L 500.2500, L100.0500 ####[facility] [address] [place], [address] RDW SD 47.4 fl High 35.1-43.9 [facility] Comment on above: Performed By: #### L 500.2500, L100.0500 ####[facility] [address] [place], [address] WBC (Bld) [#/Vol] 7.4 10*3/uL Normal 4.4-11.0 [facility] Comment on above: Performed By: #### L 500.2500, L100.0500 ####[facility] [address] [place], [address] CVS/PCIREPORTon 04-02-2025 CVS/PCIREPORT [facility] [address] [place] [address] MR#: [id number] Acct: [id number] Name: EAMON HUSTON Rep #: [id number] : 1960 64 From: Kalen Edwards MD [...] the patient was brought down to the slab grinder in a fasting state. Right wrist area was prepped, draped and sterilized in the usual fashion. Moderate conscious sedation, administration, documentation and physiologic monitoring of the IV conscious sedation was performed under my direct supervision by a trained registered nurse. Intraservice time started at 12:22 and ended at 13:06 Using modified Seldinger technique, right radial artery was then cannulated. A 6-Russian sheath was inserted, sheath was flushed. 4F [...] used to dilate the lesion then 3.0x26 [place] stent was deployed at 12 lis and [...] left circumflex using 3.0 by 26 mm [place] MORGAN. 3. IFR to the LAD (0.67). [...] MD Date Dictated: 04/02/251442 Date Transcribed: 04/02/251442 Special Order Jeweler: AJ Signed Normal [facility] Calculated very low density lipoprotein (VLDL) cholesterol measurementOrdered By: Amaris Gomez on 04-02-2025 Calculated very low density lipoprotein (VLDL) cholesterol measurement 63 mg/dL High 5-40 [facility] Carbon dioxide, total [Moles /volume] in Central venous bloodOrdered By: Franko Cueto on 04-02-2025 CO2 [Moles/Vol] 21.2 mmol/L 21.0-32.0 [facility] Cardiac catheterization repo rtOrdered By: Kalen Edwards on 04-02-2025 Cardiac catheterization study [facility] [address] [place] [address] MR#: [id number] Acct: [id number] Name: EAMON HUSTON Rep #: [id number] [...] the patient was brought down to the slab grinder in a fasting state. Right wrist area was prepped, draped and sterilized in the usual fashion. Moderate conscious sedation, administration, documentation and physiologic monitoring of the IV conscious sedation was performed under my direct supervision by a trained registered nurse. Intraservice time started at 12:22 and ended at 13:06 Using modified Seldinger technique, right radial artery was then cannulated. A 6-Russian sheath was inserted, sheath was flushed. 4F [...] to left circumflexusing 3.0 by 26 mm [place] MORGAN. 3. IFR to the LAD (0.67). [...] 1617 Date _ Kalen Edwards MD CC: RIB CUTTERNick Garcia; Dr. Amaris Gomez MD ~ Date Dictated: 04/02/25 144 Date Transcribed: 04/02/251442 Special Order Jeweler: LEA Pollock [facility] Cardiac rehabilitation repor tOrdered By: Kassandra Mccormack on 04-02-2025 Study report [facility] Cardiac Rehab [address] [place] [address] CR: Phase I Assessment MR#: [id number] Acct: [id number] Name: EAMON HUSTON Rep #:[id number] : 1960 64 From: Kassandra govea PCP: ESTEBAN Castellanos DOS: 04/02 Patient Communication Patient Information Former Patient:: Phase I PHII Cardiac Rehab Discussed with Patient:: Yes Guide to Cardiac Rehab Given to Patient:: Yes Cardiac Rehab Facility Choice List Given to Patient:: Yes Communication to Cardiac Rehab Choice Program [facility] CR PHII:: Communication Given to CR Rivet Passer:: Kalen Edwards Phase II Cardiac Rehab:: Yes Sessions:: 36 sessions - 3 days/wk, 12 weeks Cardiac Rehabilitation Info Program Information Cardiac Rehabilitation Program Information: Cardiac Rehab The cardiac rehab team at [facility] consists of highly skilled exercise physiologists, [...] Cardiac Rehab program is Certified by the [place] [employer] of Cardio-Vascular and Pulmonary Rehabilitation (AACVPR) and Accredited by the [place] [employer] through our Chest Pain [...] Cosigner Signature: Date _ CC: ~ Signed [facility] Chest 1 View (Portable)on Chest 1 View (Portable) [facility] Imaging Services [address] [place] [address] Chest 1 View (Portable) MR#: [id number] Acct: [id number] Name: EAMON HUSTON Rep #: [id number] : 1960 F 64 From: Antelmo Whitehead PCP: ESTEBAN Castellanos Status: ADM IN Study: Chest 1 View (Portable) Date of Exam: 04/02/25 Exam# [id number] Ordering Dr: Kalen Edwards MD PROCEDURE: CHEST [...] acute osseous process is evident. Reading Location: [address] CC: RIB CUTTER-C Naima Garcia; Dr. Kalen Edwards MD Special Order Jeweler: Signed Normal [facility] Chloride assayOrdered By: Rick prince Nory on 04-02-2025 Chloride [Moles/Vol] 103 mmol/L 98-108 [facility] Consultation - Cardiologyon 04-02-2025 Consultation - Cardiology [facility] Medical Records Department [address] [place] [address] Consultation - Cardiology 04/02/25 0844 MR#: [id number] Acct: [id number] Name: EAMON HUSTON Rep #: [id number] : 1960 64 From: Kalen Edwards MD PCP: ANGEL CastellanosC Status:ADM IN Location: [place] [address] Assessment Plan Assessment/Plan (1) Acute non-ST elevation [...] Code(s): I25.10 - Atherosclerotic heart disease of [place] coronary artery without angina pectoris; I25.83 - [...] post MORGAN to LAD in 2010 at [facility], hypertension, paroxysmal atrial fibrillation not on AC [...] of severe myalgia when she had statin. [facility] Medical History ESBL (extended spectrum beta-lactamase) [...] Sepuv) Allergy Severe Rash Verified 04/01/25 20:10 Vwnvyfg-TEP-IgV Reductase Allergy Intermediate cramps Verified 04/01/25 20:10 Inhibitor (Hmgdvxm-Xfn-Jdn Reductase Inhibitor) dapagliflozin (From [facility]) AdvReac Severe yeast Verified 04/01/25 20:10 [...] Reports syst (more content not included)... Normal [facility] Echo Complete W/ Contraston 04-02-2025 Echo Complete W/ Contrast [facility] Cardiovascular Services [address] [place] [address] Echo Complete W/ Contrast 04/02/25 0732 MR#: [id number] Acct: [id number] Name: EAMON HUSTON Rep #: [id number] : 1960 64 From: Kalen Edwards MD [...] motion abnormalities as specified. Mid-inferoseptal : Hypokinetic. [place] : Severely Hypokinetic. Lateral [place] : Hypokinetic. Septal [place] : Hypokinetic. Anterior [place] : Hypokinetic. Right Ventricle ICD or pacer [...] Naima Garcia (more content not included)... Normal [facility] Echocardiogram study reportO rdered By: Kalen Edwards on 04-02-2025 Study report [facility] Cardiovascular Services [address] [facility] [place] [address] Echo Complete W/ Contrast 04/02/25 0732 MR#: [id number] Acct: [id number] Name: EAMON HUSTON Rep #:[id number] : 1960 64 From: Kalen Whitehead Attending Dr: Dr. Amaris Gomez MD Status: ADM IN Ordering Dr: Franko Cueto DO Da te: 04/02/25 Location: [facility] Sex: F C Admitted: 04/02/25 Reason [...] motion abnormalities as specified. Mid-inferoseptal : Hypokinetic. [place] : Severely Hypokinetic. Lateral [place] : Hypokinetic. Septal [place] : Hypokinetic. Anterior [place] : Hypokinetic. Right Ventricle ICD or pacer [...] 1108 Date _ Kalen Edwards MD CC: RIB CUTTER-C Naima Garcia; (more content not included)... [facility] Electrocardiogram reportOrde red By: Mino Zhang on 04-02-2025 EKG study [facility] Cardiovascular Services [address] [place] [address] 12 Lead EKG 04/02/25 0002 MR#: [id number] Acct: [id number] Name: EAMON HUSTON Rep #:[id number] : 1960 64 From: Mino Zhang MD Attending Dr: Dr. Amaris Gomez MD Status: ADM IN Ordering Dr: Mago Jang DO Date: 0 04/01/25 Location: [facility] Sex: F C Admitted: 04/02/25 Test Reason : REPEAT Blood Pressure : */* mmHG Vent. Rate : 96 BPM Atrial Rate : 96 BPM P-R Int : 108 ms QRS Dur : 134 ms QT Int : 416 ms P-R-T Axes : 69 -80 126 degrees QTcB Int : 525 ms Atrial-sensed ventricular-paced rhythm Abnormal ECG Confirmed by MINO ZHANG MD ([id number]), newspaper or periodical editor CORTES DEAN ([id number]) on 04/02/2025 2:14:31 PM Referred By: Confirmed By: MINO ZHANG MD 04/02/25 1414 Date _ Mino Zhang MD CC: RIB CUTTER-Rangel Garcia; Dr. Amaris Gomez MD; Dr. Mago Jang, ~ Signed [facility] Work Phone: Erythrocyte distribution wid th ratioOrdered By: Franko Cueto on 04-02-2025 Erythrocyte distribution width (RBC) [Ratio] 14.1 % 11.6-14.6 [facility] Erythrocyte distribution wid th standard deviationOrdered By: Franko Cueto on 04-02-2025 Erythrocyte distribution width (RBC) [Ratio] 47.4 fl High 35.1-43.9 [facility] Glomerular filtration rate ( GFR) estimation/1.73 sq m using serum, plasma, or whole bOrdered By: Franko Cueto on 04-02-2025 GFR/1.73 sq M.predicted among non-blacks MDRD (S/P/Bld) [Vol rate/Area] 103 mL/min/{1.73_m2} >60 [facility] Comment on above: mL/min/1.73m2 CKD-EP I Creatinine Equation (2020) [facility]dered By: Amaris Gomez on 04-02-2025 Glucose [Mass/Vol] 303 mg/dL High 74-106 [facility] Comment on above: MANAGEMENT OF PATIEN T CARE PER NURSING PROTOCOL Hematocrit Auto (Bld) [Volum e fraction]Ordered By: Franko Cueto on 04-02-2025 Hematocrit (Bld) [Volume fraction] 42.6 % 37-47 [facility] Hemoglobin measurementOrdere d By: Franko Cueto on 04-02-2025 Hemoglobin (Bld) [Mass/Vol] 13.9 g/dL 12.0-15.0 [facility] L499.0043on 04-02-2025 Trop T High Sen 132 ng/L Invalid Interpretation Code <=14 [facility] Comment on above: Result Comment: Crit ical Result(s) Called at 0121: by NILDA TO ALEJANDRAIAN:??Results read back by same. Performed By: #### L 500.4100, L500.4050, L100.0100 #### [facility] Laboratory [address] [place], [place], [address] LDL calc ser/plasOrdered By: Amaris Gomez on 04-02-2025 Cholesterol in LDL [Mass/Vol] 125 mg/dL [facility] Comment on above: Dtpwipqabk=880-357 m g/dL & Higher Frxy=564 mg/dL or greater Lipid Profileon 04-02-2025 CHOL:HDL 6.96 Normal [facility] Comment on above: Order Comment: Comme nts: may add to ED labs Performed By: #### L 500.4100, L501.5200 ####[facility] [address] [place], [address] Cholesterol [Mass/Vol] 220 mg/dL High <=200 [facility] Comment on above: Order Comment: Comme nts: may add to ED labs Result Comment: Chol esterol level, Desirable <200 mg/dL Borderline high cholesterol 200-239 mg/dL High cholesterol >=240 mg/dL Recommendations of the NCEP Adult Treatment Panel for the following risk-cutoff thresholds for the [place] population. Performed By: #### L 500.4100, L501.5200 ####[facility] [address] [place], [address] Cholesterol in HDL [Mass/Vol] 32 mg/dL Low [facility] Comment on above: Order Comment: Comme nts: may add to ED labs Result Comment: [place]ule[place] onal Cholesterol Education Program (NCEP) guidelines: <40 mg/dL: Low HDL-cholesterol (major risk factor for CHD) >= 60 mg/dL: High HDL-cholesterol (negative risk factor for CHD) HDL-cholesterol is affected by a number of factors, e.g. smoking, exercise, hormones, sex and age. Performed By: #### L 500.4100, L501.5200 ####[facility] [address] [place], [address] Cholesterol in LDL [Mass/Vol] 125 mg/dL Normal [facility] Comment on above: Order Comment: Comme nts: may add to ED labs Result Comment: Bord azczja=452-279 mg/dL Higher Knei=481 mg/dL or greater Performed By: #### L 500.4100, L501.5200 ####[facility] [address] [place], [address] Cholesterol in VLDL [Mass/Vol] 63 mg/dL High 5-40 [facility] Comment on above: Order Comment: Comme nts: may add to ED labs Performed By: #### L 500.4100, L501.5200 ####[facility] [address] [place], [address] Triglyceride [Mass/Vol] 316 mg/dL High [facility] Comment on above: Order Comment: Comme nts: may add to ED labs Result Comment: The drugs N-Acetylcysteine and Metamizole may falsely depress this assay. Normal range: <150 mg/dL Borderline High: 150-199 mg/dL High: 200-499 mg/dL Very High: >500 mg/dL Performed By: #### L 500.4100, L501.5200 ####[facility] [address] [place], [place], [address] MCV (mean corpuscular volume ) determinationOrdered By: Franko Cueto on 04-02-2025 MCV (RBC) [Entitic vol] 92.2 fL 81-99 [facility] Magnesiumon 04-02-2025 Magnesium [Mass/Vol] 2.0 mg/dL Normal 1.5-2.2 [facility] Comment on above: Order Comment: Comme nts: may add to ED labs Performed By: #### L 500.4100, L501.5200 ####[facility] [address] [place], [place], [address] Magnesium measurement (mass/ volume)Ordered By: Amaris Gomez on 04-02-2025 Magnesium (Unsp spec) [Mass/Vol] 2.0 mg/dL 1.5-2.2 [facility] Mean corpuscular hemoglobin (MCH) determinationOrdered By: Franko Cueto on 04-02-2025 MCH (RBC) [Entitic mass] 30.1 pg 27.0-32.0 [facility] Mean corpuscular hemoglobin concentration (MCHC) determinationOrdered By: Franko Cueto on 04-02-2025 MCHC (RBC) [Mass/Vol] 32.6 g/dL 32-36 [facility] Mean platelet volume determi nationOrdered By: Franko Cueto on 04-02-2025 Platelet mean volume (Bld) [Entitic vol] 13.0 fL High 6.2-12.0 [facility] Pacemaker Checkon 04-02-2025 Pacemaker Check [facility] [address] [place], [place] [address] Pacemaker Check Date of Service: 04/02/25 1342 MR#: [id number] Acct: [id number] Name: EAMON HUSTON Rep #: [id number] : 1960 From: Raven Concepcion Age/Sex: 64/F [place] [facility] [place]: Signed Billing Codes ICD Device Billin ICD Dev Prog Eval, Multi Assessment and Plan Assessment and Plan (1) Biventricular automatic implantable cardioverter defibrillator in situ: Status: Acute 04/02/25 1353 Date Raven Miller Signature: Date (if applicable) CC: Normal [facility] Partial Thromboplast Timeon 04-02-2025 aPTT Coag (Bld) [Time] 35.9 s Normal 24.1-36.2 [facility] Comment on above: Performed By: #### L 500.4100, L500.4050, L100.0100 #### [facility] Laboratory [address] [place], [address] aPTT Coag (Bld) [Time] 26.7 s Normal 24.1-36.2 [facility] Comment on above: Performed By: #### L 500.4100, L500.4050, L100.0100 #### [facility] [address] [place], [address] Platelet countOrdered By: Rick Cueto on 04-02-2025 Platelets (Bld) [#/Vol] 211 10*3/uL 150-450 [facility] Potassium measurement (mass/ volume)Ordered By: Franko Cueto on 04-02-2025 Potassium (Unsp spec) [Mass/Vol] 3.9 mmol/L 3.3-5.1 [facility] Prothrombin Time w/INRon INR Coag (PPP) [Relative time] 0.9 {INR} Normal [facility] Comment on above: Performed By: #### L 500.4100, L500.4050, L100.0100 #### [facility] Laboratory [address] [place], [address] PT Coag (PPP) [Time] 12.7 s Normal 11.7-14.9 [facility] Comment on above: Performed By: #### L 500.4100, L500.4050, L100.0100 #### [facility] [address] [place], [address] RBC Auto (Bld) [#/Vol]Ordere d By: Franko Ceuto on 04-02-2025 RBC (Bld) [#/Vol] 4.62 10*6/uL 4.2-5.4 [facility] Screening total cholesterol/ high density lipoprotein (HDL) cholesterol ratioOrdered By: Amaris Gomez on 04-02-2025 Cholesterol.total/Michelle sterol in HDL [Mass ratio] 6.96 {ratio} [facility] Serum creatinine measurement (mass/volume)Ordered By: Franko Cueto on 04-02-2025 Creatinine [Mass/Vol] 0.57 mg/dL Low 0.70-1.20 [facility] Serum glucose measurement (m ass/volume)Ordered By: Franko Cueto on 04-02-2025 Glucose [Mass/Vol] 253 mg/dL High 70-99 [facility] Serum or plasma calcium sylvia urement (mass/volume)Ordered By: Franko Cueto on 04-02-2025 Calcium [Mass/Vol] 9.2 mg/dL 7.6-11.0 [facility] Serum or plasma cholesterol in HDL measurement (mass/volume)Ordered By: Amaris Gomez on 04-02-2025 Cholesterol in HDL [Mass/Vol] 32 mg/dL Low >40 [facility] Comment on above: National Cholesterol Education Program (NCEP) guidelines:<40 mg/dL: Low HDL-cholesterol (major risk factor for CHD)>= 60 mg/dL: High HDL-cholesterol (negative risk factor for CHD)HDL-cholesterol is affected by a number of factors, e.g. smoking, exercise, hormones, sex and age. Serum or plasma cholesterol measurement (mass/volume)Ordered By: Amaris Gomez on 04-02-2025 Cholesterol [Mass/Vol] 220 mg/dL High <201 [facility] Comment on above: Cholesterol level, D esirable <200 mg/dLBorderline high cholesterol 200-239 mg/dLHigh cholesterol >=240 mg/dLRecommendations of the NCEP Adult Treatment Panel for the following risk-cutoff thresholds for the [place] population. Serum or plasma urea nitroge n measurement (mass/volume)Ordered By: Franko Cueto on 04-02-2025 Urea nitrogen [Mass/Vol] 12 mg/dL 4-19 [facility] Sodium levelOrdered By: Evelio Cueto on 04-02-2025 Sodium [Moles/Vol] 137 mmol/L 133-145 [facility] Triglycerides measurementOrd ered By: Amaris Gomez on 04-02-2025 Triglyceride [Mass/Vol] 316 mg/dL High <199 [facility] Comment on above: The drugs N-Acetylcy steine and Metamizole may falsely depress this assay. Normal range: <150 mg/dLBorderline High: 150-199 mg/dLHigh: 200-499 mg/dLVery High: >500 mg/dL Troponin T.cardiac [Mass/vol ume] in Serum or Plasma by High sensitivity methodOrdered By: Mago Jang on 04-02-2025 Troponin T.cardiac High sensitivity method [Mass/Vol] 132 ng/L High <14 [facility] Comment on above: Critical Result(s) C alled at 0121: by BRIANNES TO ADRIANARTIAN: Results read back by same. Vitamin D,25 Hydroxyon 04-02 Vitamin D 25-OH 36.7 ng/mL Normal 30-100 [facility] Comment on above: Result Comment: Peggy min D Status Deficiency: <20 ng/mL (50nmol/L) Insufficiency: 20-30 ng/mL (50-75 nmol/L) Sufficiency: 30-100 ng/mL (75-250 nmol/L) Toxicity: >100 ng/mL (>250 nmol/L) Performed By: #### L 506.1001 ####[facility] [address] [place], [place], [address] White blood cell (WBC) count Ordered By: Franko Cueto on 04-02-2025 WBC (Bld) [#/Vol] 7.4 10*3/uL 4.4-11.0 [facility] 12 Lead EKGon 04-01-2025 12 Lead EKG [facility] Cardiovascular Services [address] [place] [address] 12 Lead EKG 04/02/25 0002 MR#: [id number] Acct: [id number] Name: EMAON HUSTON Rep #: [id number] : 1960 64 From: Mino Zhang MD Attending Dr: Dr. Amaris Gomez MD Status: AD M IN Ordering Dr: Mago Jang DO Date: 04/01/25 Location: [facility] Sex: F C Admitted: 04/02/25 Test Reason : REPEAT Blood Pressure : */* mmHG Vent. Rate : 96 BPM Atrial Rate : 96 BPM P-R Int : 108 ms QRS Dur : 134 ms QT Int : 416 ms P-R-T Axes : 69 -80 126 degrees QTcB Int : 525 ms Atrial-sensed ventricular-paced rhythm Abnormal ECG Confirmed by MINO ZHANG MD ([id number]), newspaper or periodical editor CORTES DEAN ([id number]) on 04/02/2025 2:14:31 PM Referred By: Confirmed By: MINO ZHANG MD 04/02/25 1414 Date Mino Zhang MD CC: RIB CUTTERNick Garcia; Dr. Amaris Gomez MD; Dr. Mago Jang DO Signed Normal [facility] Absolute lymphocyte countOrd ered By: Mago Jnag on 04-01-2025 Lymphocytes Auto (Unsp spec) [#/Vol] 4.77 10*3/uL High 0.83-4.51 [facility] Absolute neutrophil countOrd ered By: Mago Jang on 04-01-2025 Neutrophils (Bld) [#/Vol] 4.1 10*3/uL 2.0-7.7 [facility] Activated partial thrombopla stin time (aPTT) in platelet poor plasma by coagulation aOrdered By: Mago Jang on 04-01-2025 aPTT Coag (PPP) [Time] 26.7 s 24.1-36.2 [facility] Anion gap in Serum or Plasma Ordered By: Mago Jang on 04-01-2025 Anion gap [Moles/Vol] 15 mmol/L 5-15 [facility] Automated lymphocyte count a s percentage of total leukocytesOrdered By: Mago Jang on 04-01-2025 Lymphocytes/100 WBC Auto (Unsp spec) 47.8 % High 19-41 [facility] BUN/creatinine ratioOrdered By: Mago Jang on 04-01-2025 Urea nitrogen/Creatinine [Mass ratio] 19.3 mg/mg 10- [facility] Basic Metabolic Profile (BMP )on 04-01-2025 BUN/CRE 19.3 RATIO Normal - [facility] Comment on above: Performed By: #### L 100.0100, L500.3400, L500.2500, L501.4021, L501.2450 #### [facility] Laboratory [address] [place], [address] Calcium [Mass/Vol] 9.8 mg/dL Normal 7.6-11.0 [facility] Comment on above: Performed By: #### L 100.0100, L500.3400, L500.2500, L501.4021, L501.2450 #### [facility] [address] [place], [address] Chloride [Moles/Vol] 100 mmol/L Normal 98-108 [facility] Comment on above: Performed By: #### L 100.0100, L500.3400, L500.2500, L501.4021, L501.2450 #### [facility] [address] [place], [address] CO2 [Moles/Vol] 19.2 mmol/L Low 21.0-32.0 [facility] Comment on above: Performed By: #### L 100.0100, L500.3400, L500.2500, L501.4021, L501.2450 #### [facility] [address] [place], [address] Creatinine [Mass/Vol] 0.67 mg/dL Low 0.70-1.20 [facility] Comment on above: Performed By: #### L 100.0100, L500.3400, L500.2500, L501.4021, L501.2450 #### [facility] [address] [place], [address] ECRCL 100.16 ml/min Normal 50-250 [facility] Comment on above: Performed By: #### L 100.0100, L500.3400, L500.2500, L501.4021, L501.2450 #### [facility] [address] [place], [address] GAP 15 Normal 5-15 [facility] Comment on above: Performed By: #### L 100.0100, L500.3400, L500.2500, L501.4021, L501.2450 #### [facility] [address] [place], [address] GFR/1.73 sq M.predicted among non-blacks MDRD (S/P/Bld) [Vol rate/Area] 99 mL/min/{1.73_m2} Normal >60 [facility] Comment on above: Result Comment: mL/m in/1.73m2 CKD-EPI Creatinine Equation (2020) Performed By: #### L 100.0100, L500.3400, L500.2500, L501.4021, L501.2450 #### [facility] [address] [place], [address] Glucose [Mass/Vol] 337 mg/dL High 70-99 [facility] Comment on above: Performed By: #### L 100.0100, L500.3400, L500.2500, L501.4021, L501.2450 #### [facility] [address] [place], [address] Potassium [Moles/Vol] 4.3 mmol/L Normal 3.3-5.1 [facility] Comment on above: Performed By: #### L 100.0100, L500.3400, L500.2500, L501.4021, L501.2450 #### [facility] [address] [place], [address] Sodium [Moles/Vol] 134 mmol/L Normal 133-145 [facility] Comment on above: Performed By: #### L 100.0100, L500.3400, L500.2500, L501.4021, L501.2450 #### [facility] [address] [place], [address] Urea nitrogen [Mass/Vol] 13 mg/dL Normal 4-19 [facility] Comment on above: Performed By: #### L 100.0100, L500.3400, L500.2500, L501.4021, L501.2450 #### [facility] [address] [place], [address] Basophil percentageOrdered B y: Mago Jang on 04-01-2025 Basophils/100 WBC (Bld) 0.9 % 0-1 [facility] Bilirubin directOrdered By: Mago Jang on 04-01-2025 Bilirubin.direct [Mass/Vol] 0.27 mg/dL 0.00-0.30 [facility] Bilirubin, totalOrdered By: Mago Jang on 04-01-2025 Bilirubin [Mass/Vol] 0.57 mg/dL 0.00-1.30 [facility] CBC W/Diff, Automatedon 07-0 Absolute Lymph 4.77 X10 3/uL High 0.83-4.51 [facility] Comment on above: Performed By: #### L 100.0100, L500.3400, L500.2500, L501.4021, L501.2450 #### [facility] [address] [place], [address] Absolute Neut 4.1 X10 3/uL Normal 2.0-7.7 [facility] Comment on above: Performed By: #### L 100.0100, L500.3400, L500.2500, L501.4021, L501.2450 #### [facility] [address] [place], [address] Basophils/100 WBC (Bld) 0.9 % Normal 0-1 [facility] Comment on above: Performed By: #### L 100.0100, L500.3400, L500.2500, L501.4021, L501.2450 #### [facility] [address] [place], [address] Eosinophils/100 WBC (Bld) 1.3 % Normal 0-5 [facility] Comment on above: Performed By: #### L 100.0100, L500.3400, L500.2500, L501.4021, L501.2450 #### [facility] [address] [place], [address] Erythrocyte distribution width (RBC) [Ratio] 14.2 % Normal 11.6-14.6 [facility] Comment on above: Performed By: #### L 100.0100, L500.3400, L500.2500, L501.4021, L501.2450 #### [facility] [address] [place], [address] Hematocrit (Bld) [Volume fraction] 46.6 % Normal 37-47 [facility] Comment on above: Performed By: #### L 100.0100, L500.3400, L500.2500, L501.4021, L501.2450 #### [facility] [address] [place], [address] Hemoglobin (Bld) [Mass/Vol] 15.3 g/dL High 12.0-15.0 [facility] Comment on above: Performed By: #### L 100.0100, L500.3400, L500.2500, L501.4021, L501.2450 #### [facility] [address] [place], [address] IG% 0.200 Normal 0.0-0.9 [facility] Comment on above: Result Comment: IG% - Immature Granulocytes (promyelocytes, myelocytes and metamyelocytes) > 1% indicates that a LEFT SHIFT is Present. Performed By: #### L 100.0100, L500.3400, L500.2500, L501.4021, L501.2450 #### [facility] [address] [place], [address] Lymphocytes/100 WBC (Bld) 47.8 % High 19-41 [facility] Comment on above: Performed By: #### L 100.0100, L500.3400, L500.2500, L501.4021, L501.2450 #### [facility] [address] [place], [address] MCH (RBC) [Entitic mass] 30.7 pg Normal 27.0-32.0 [facility] Comment on above: Performed By: #### L 100.0100, L500.3400, L500.2500, L501.4021, L501.2450 #### [facility] [address] [place], [address] MCHC (RBC) [Mass/Vol] 32.8 g/dL Normal 32-36 [facility] Comment on above: Performed By: #### L 100.0100, L500.3400, L500.2500, L501.4021, L501.2450 #### [facility] [address] [place], [address] MCV (RBC) [Entitic vol] 93.4 fL Normal 81-99 [facility] Comment on above: Performed By: #### L 100.0100, L500.3400, L500.2500, L501.4021, L501.2450 #### [facility] [address] [place], [address] Monocytes/100 WBC (Bld) 9.2 % Normal 0-10 [facility] Comment on above: Performed By: #### L 100.0100, L500.3400, L500.2500, L501.4021, L501.2450 #### [facility] [address] [place], [address] Neutrophils/100 WBC (Bld) 40.6 % Low 47-70 [facility] Comment on above: Performed By: #### L 100.0100, L500.3400, L500.2500, L501.4021, L501.2450 #### [facility] [address] [place], [address] Nucleated RBC (Bld) [#/Vol] 0 10*3/uL Normal 0-5 [facility] Comment on above: Performed By: #### L 100.0100, L500.3400, L500.2500, L501.4021, L501.2450 #### [facility] [address] [place], [address] Platelet mean volume (Bld) [Entitic vol] 12.9 fL High 6.2-12.0 [facility] Comment on above: Performed By: #### L 100.0100, L500.3400, L500.2500, L501.4021, L501.2450 #### [facility] [address] [place], [address] Platelets (Bld) [#/Vol] 242 10*3/uL Normal 150-450 [facility] Comment on above: Performed By: #### L 100.0100, L500.3400, L500.2500, L501.4021, L501.2450 #### [facility] [address] [place], [address] RBC (Bld) [#/Vol] 4.99 10*6/uL Normal 4.2-5.4 [facility] Comment on above: Performed By: #### L 100.0100, L500.3400, L500.2500, L501.4021, L501.2450 #### [facility] [address] [place], [address] RDW SD 48.3 fl High 35.1-43.9 [facility] Comment on above: Performed By: #### L 100.0100, L500.3400, L500.2500, L501.4021, L501.2450 #### [facility] [address] [place], [address] WBC (Bld) [#/Vol] 10.0 10*3/uL Normal 4.4-11.0 [facility] Comment on above: Performed By: #### L 100.0100, L500.3400, L500.2500, L501.4021, L501.2450 #### [facility] [address] [place], [address] CO2 (BldV) [Moles/Vol]Ordere d By: Mago Jang on 04-01-2025 CO2 [Moles/Vol] 25 mmol/L 23-33 [facility] Carbon dioxide, total [Moles /volume] in Central venous bloodOrdered By: Mago Jang on 04-01-2025 CO2 [Moles/Vol] 19.2 mmol/L Low 21.0-32.0 [facility] Chest 1 View (Portable)on Chest 1 View (Portable) [facility] Imaging Services [address] [place], [place] [address] Chest 1 View (Portable) MR#: [id number] Acct: [id number] Name: EAMON HUSTON Rep #: [id number] : 1960 F 64 From: John Langford MD PCP: Naima Garcia NP-C Status: REG ER Study: Chest 1 View (Portable) Date of Exam: 04/01/25 Exam# [id number] Ordering Dr: Mago Jang DO PROCEDURE: CHEST [...] edema. No sizable pleural effusion. Reading Location: [id number] CC: RIB CUTTER-C Naima Garcia; Dr. Mago Jang DO Special Order Jeweler: Signed Normal [facility] Chloride assayOrdered By: Tariq Jang on 04-01-2025 Chloride [Moles/Vol] 100 mmol/L 98-108 [facility] D-Dimer Quantitative (DVT/PE )on 04-01-2025 D-DIMER QUANT 0.37 FEU/ug/m Normal 0.27-0.49 [facility] Comment on above: Result Comment: NORM AL D-Dimer level (<0.50) indicates no DVT or PE. Performed By: #### L 500.4100, L500.4050, L100.0100 #### [facility] [address] [place], [address] Digoxin Levelon 04-01-2025 DIG 0.76 ng/mL Normal 0.00-2.00 [facility] Comment on above: Performed By: #### L 501.7510 #### [facility] [address] [place], [address] Emergency Department Summary on 04-01-2025 Emergency Department Summary [facility] Medical Records Department [address] [place] [address] Emergency Department Summary 04/01/25 MR#: [id number] Acct: [id number] Name: EAMON HUSTON Rep #: [id number] : 1960 64 From: Mago Jang DO [...] but states she feels warm right now. [facility] Medical History ESBL (extended spectrum beta-lactamase) [...] Sepuv) Allergy Severe Rash Verified 04/01/25 20:10 Dlxykrx-VRV-UrW Reductase Allergy Intermediate cramps Verified 04/01/25 20:10 Inhibitor (Btsjajp-Ifu-Unh Reductase Inhibitor) dapagliflozin (From ) AdvReac Severe [...] Exam Const (more content not included)... Normal [facility] Eosinophil percentageOrdered By: Mago Jang on 04-01-2025 Eosinophils/100 WBC (Bld) 1.3 % 0-5 [facility] Erythrocyte distribution wid th ratioOrdered By: Mago Jang on 04-01-2025 Erythrocyte distribution width (RBC) [Ratio] 14.2 % 11.6-14.6 [facility] Erythrocyte distribution wid th standard deviationOrdered By: Mago Jang on 04-01-2025 Erythrocyte distribution width (RBC) [Ratio] 48.3 fl High 35.1-43.9 [facility] Glomerular filtration rate ( GFR) estimation/1.73 sq m using serum, plasma, or whole bOrdered By: Mago Jang on 04-01-2025 GFR/1.73 sq M.predicted among non-blacks MDRD (S/P/Bld) [Vol rate/Area] 99 mL/min/{1.73_m2} >60 [facility] Comment on above: mL/min/1.73m2 CKD-EP I Creatinine Equation (2020) [facility] H&P Exam - Hospitalist [facility] Medical Records Department [address] [place] [address] H P Exam - Hospitalist 04/01/25 2346 MR#: [id number] Acct: [id number] Name: EAMON HUSTON Rep #: [id number] : 1960 64 From: Franko Cueto DO PCP: ESTEBAN Castellanos Status:ADM IN Location: [place] [address] HPI - General General Date of Admission: 04/02/25 Date of Service: 04/01/25 Chief Complaint: Chest discomfort and shortness of breath HPI Narrative EAMON HUSTON, is a 64 F who presented to [facility] ED on 04/01/2025 with chest discomfort [...] NSTEMI. Will be admitted for further management. [facility] Medical History ESBL (extended spectrum beta-lactamase) [...] Sepuv) Allergy Severe Rash Verified 04/01/25 20:10 Pvfvdqf-TDU-FgR Reductase Allergy Intermediate cramps Verified 04/01/25 20:10 Inhibitor (Axzshcx-Hjj-Pig Reductase Inhibitor) dapagliflozin (From xi) AdvReac Severe [...] Vital Signs (more content not included)... Normal [facility] Hematocrit Auto (Bld) [Volum e fraction]Ordered By: Mago Jang on 04-01-2025 Hematocrit (Bld) [Volume fraction] 46.6 % 37-47 [facility] Hemoglobin measurementOrdere d By: Mago Jang on 04-01-2025 Hemoglobin (Bld) [Mass/Vol] 15.3 g/dL High 12.0-15.0 [facility] Immature granulocytes/100 WB C Auto (Bld)Ordered By: Mago Jang on 04-01-2025 Immature granulocytes/100 WBC (Bld) 0.200 % 0.0-0.9 [facility] Comment on above: IG% - Immature Granu locytes (promyelocytes, myelocytes and metamyelocytes) > 1% indicates that a LEFT SHIFT is Present. International normalized rat io (INR) calculationOrdered By: Mago Jang on 04-01-2025 INR Coag (Bld) [Relative time] 0.9 {INR} [facility] L499.0042on 04-01-2025 Trop T High Sen 127 ng/L Invalid Interpretation Code <=14 [facility] Comment on above: Result Comment: Crit ical Result(s) Called at: 2247 by: YUMI NEGRETE TO IVY FLORES??Results read back by same. Performed By: #### L 500.4100, L500.4050, L100.0100 #### [facility] [address] [place], [address] L501.4021on 04-01-2025 Trop T High Sen 142 ng/L Invalid Interpretation Code <=14 [facility] Comment on above: Result Comment: Crit ical Result(s) Called at: 2158 by: YUMI NEGRETE TO JACINDA ROSALES??Results read back by same. Performed By: #### L 100.0100, L500.3400, L500.2500, L501.4021, L501.2450 ####[facility] [address] [place], [address] Trop T High Sen 153 ng/L Invalid Interpretation Code <=14 [facility] Comment on above: Result Comment: Crit ical Result(s) Called at: 1919 by: YUMI NEGRETE TO NAIMA GARCIA??Results read back by same. Performed By: #### L 3100.7870, L501.4021 ####[facility] [address] [place], [address] L503.7505on 04-01-2025 Natriuretic peptide B (Bld) [Mass/Vol] 1180 pg/mL High <=900 [facility] Comment on above: Result Comment: Hear t Failure Unlikely: < 300 pg/mL Heart Failure Likely < 50 Years: > 450 pg/mL 50-75 Years: > 900 pg/mL >75 Years: > 1800 pg/mL Performed By: #### L 503.7505 #### [facility] [address] [place], [address] Laboratory - Chemistry and C hemistry - challengeOrdered By: Mago Jang on 04-01-2025 AST [Catalytic activity/Vol] 85 U/L High <32 [facility] Lipaseon 04-01-2025 Lipase [Catalytic activity/Vol] 26 U/L Normal 13-75 [facility] Comment on above: Result Comment: Plea se note: LIPASE revised reference range effective 23. New Lipase methodology. Expected to produce lower values than the previous assay method. NEW Reference Range: 13 - 75 U/L Performed By: #### L 100.0100, L500.3400, L500.2500, L501.4021, L501.2450 ####[facility] [address] [place], [address] Lipase measurementOrdered By : Mago Jang on 04-01-2025 Lipase [Catalytic activity/Vol] 26 U/L 13-75 [facility] Comment on above: Please note:LIPASE r evised reference range effective 23. New Lipase methodology. Expected to produce lower values than the previous assay method. NEW Reference Range: 13 - 75 U/L Liver Profileon 04-01-2025 Albumin [Mass/Vol] 4.1 g/dL Normal 3.4-4.8 [facility] Comment on above: Performed By: #### L 100.0100, L500.3400, L500.2500, L501.4021, L501.2450 ####[facility] [address] [place], [address] ALK PHOS 144 U/L High 35-104 [facility] Comment on above: Performed By: #### L 100.0100, L500.3400, L500.2500, L501.4021, L501.2450 ####[facility] [address] [place], [address] ALT [Catalytic activity/Vol] 83 U/L High <=34 [facility] Comment on above: Performed By: #### L 100.0100, L500.3400, L500.2500, L501.4021, L501.2450 ####[facility] [address] [place], [address] AST [Catalytic activity/Vol] 85 U/L High <=31 [facility] Comment on above: Performed By: #### L 100.0100, L500.3400, L500.2500, L501.4021, L501.2450 ####[facility] [address] [place], [address] Bilirubin [Mass/Vol] 0.57 mg/dL Normal 0.00-1.30 [facility] Comment on above: Performed By: #### L 100.0100, L500.3400, L500.2500, L501.4021, L501.2450 ####[facility] [address] [place], [address] Bilirubin.direct [Mass/Vol] 0.27 mg/dL Normal 0.00-0.30 [facility] Comment on above: Performed By: #### L 100.0100, L500.3400, L500.2500, L501.4021, L501.2450 ####[facility] [address] [place], [address] Globulin (S) [Mass/Vol] 3.0 g/dL Normal 2.2-4.2 [facility] Comment on above: Performed By: #### L 100.0100, L500.3400, L500.2500, L501.4021, L501.2450 ####[facility] [address] [place], [address] T PROT 7.1 g/dL Normal 5.9-8.4 [facility] Comment on above: Performed By: #### L 100.0100, L500.3400, L500.2500, L501.4021, L501.2450 ####[facility] [address] [place], [address] MCV (mean corpuscular volume ) determinationOrdered By: Mago Jang on 04-01-2025 MCV (RBC) [Entitic vol] 93.4 fL 81-99 [facility] Mean corpuscular hemoglobin (MCH) determinationOrdered By: Mago Jang on 04-01-2025 MCH (RBC) [Entitic mass] 30.7 pg 27.0-32.0 [facility] Mean corpuscular hemoglobin concentration (MCHC) determinationOrdered By: Mago Jang on 04-01-2025 MCHC (RBC) [Mass/Vol] 32.8 g/dL 32-36 [facility] Mean platelet volume determi nationOrdered By: Mago Jang on 04-01-2025 Platelet mean volume (Bld) [Entitic vol] 12.9 fL High 6.2-12.0 [facility] Monocyte percentageOrdered B y: Mago Jang on 04-01-2025 Monocytes/100 WBC (Bld) 9.2 % 0-10 [facility] Natriuretic peptide.B prohor osbaldo N-Terminal [Mass/volume] in Serum or PlasmaOrdered By: Mago Jang on 04-01-2025 Natriuretic peptide.B prohormone N-Terminal [Mass/Vol] 1180 pg/mL High <900 [facility] Comment on above: Heart Failure Unlike ly: < 300 pg/mLHeart Failure Likely< 50 Years: > 450 pg/mL50-75 Years: > 900 pg/mL>75 Years: > 1800 pg/mL Neutrophil percentageOrdered By: Mago Jang on 04-01-2025 Neutrophils/100 WBC (Bld) 40.6 % Low 47-70 [facility] No Panel InformationOrdered By: Mago Jang on 04-01-2025 Blood Gas Sample Site Not entered [facility] Blood Gas Specimen Type LAYO [facility] Oxygen Delivery Device Cannula [facility] Nucleated red blood cell per centageOrdered By: Mago Jang on 04-01-2025 Nucleated RBC/100 WBC (Bld) [Ratio] 0 % 0-5 [facility] Platelet countOrdered By: Tariq Jang on 04-01-2025 Platelets (Bld) [#/Vol] 242 10*3/uL 150-450 [facility] Potassium measurement (mass/ volume)Ordered By: Mago Jang on 04-01-2025 Potassium (Unsp spec) [Mass/Vol] 4.3 mmol/L 3.3-5.1 [facility] Prothrombin timeOrdered By: Mago Jang on 04-01-2025 PT Coag (PPP) [Time] 12.7 s 11.7-14.9 [facility] RBC Auto (Bld) [#/Vol]Ordere d By: Mago Jang on 04-01-2025 RBC (Bld) [#/Vol] 4.99 10*6/uL 4.2-5.4 [facility] Serum creatinine measurement (mass/volume)Ordered By: Mago Jang on 04-01-2025 Creatinine [Mass/Vol] 0.67 mg/dL Low 0.70-1.20 [facility] Serum globulin measurementOr dered By: Mago Jang on 04-01-2025 Globulin (S) [Mass/Vol] 3.0 g/dL 2.2-4.2 [facility] Serum glucose measurement (m ass/volume)Ordered By: Mago Jang on 04-01-2025 Glucose [Mass/Vol] 337 mg/dL High 70-99 [facility] Serum or plasma alanine lamb otransferase (ALT) measurementOrdered By: Mago Jang on 04-01-2025 ALT [Catalytic activity/Vol] 83 U/L High <35 [facility] Serum or plasma albumin sylvia urement (mass/volume)Ordered By: Mago Jang on 04-01-2025 Albumin [Mass/Vol] 4.1 g/dL 3.4-4.8 [facility] Serum or plasma alkaline cydney sphatase measurementOrdered By: Mago Jang on 04-01-2025 ALP [Catalytic activity/Vol] 144 U/L High 35-104 [facility] Serum or plasma calcium sylvia urement (mass/volume)Ordered By: Mago Jang on 04-01-2025 Calcium [Mass/Vol] 9.8 mg/dL 7.6-11.0 [facility] Serum or plasma digoxin sylvia urement (mass/volume)Ordered By: Mago Jang on 04-01-2025 Digoxin [Mass/Vol] 0.76 ng/mL 0.00-2.00 [facility] Serum or plasma urea nitroge n measurement (mass/volume)Ordered By: Mago Jang on 04-01-2025 Urea nitrogen [Mass/Vol] 13 mg/dL 4-19 [facility] Sodium levelOrdered By: Cecilia Jang on 04-01-2025 Sodium [Moles/Vol] 134 mmol/L 133-145 [facility] Total proteinOrdered By: Latasha Jang on 04-01-2025 Protein [Mass/Vol] 7.1 g/dL 5.9-8.4 [facility] Troponin T.cardiac [Mass/vol ume] in Serum or Plasma by High sensitivity methodOrdered By: Mago Jang on 04-01-2025 Troponin T.cardiac High sensitivity method [Mass/Vol] 127 ng/L High <14 [facility] Comment on above: Critical Result(s) C alled at: 2247 by: YUMI NEGRETE TO IVY FLORES Results read back by same. Troponin T.cardiac High sensitivity method [Mass/Vol] 142 ng/L High <14 [facility] Comment on above: Delta: 153 on Critical Result(s) Called at: 2159 by: YUMI ROSALES Results read back by same. Venous Blood Gason Blood Gas Type LAYO Normal [facility] Comment on above: Performed By: #### L 500.4100, L500.4050, L100.0100 #### [facility] [address] [place], [address] CO2 [Moles/Vol] 25 mmol/L Normal 23-33 [facility] Comment on above: Performed By: #### L 500.4100, L500.4050, L100.0100 #### [facility] [address] [place], [address] FI02 2.0 Normal [facility] Comment on above: Performed By: #### L 500.4100, L500.4050, L100.0100 #### [facility] [address] [place], [address] HCO3 (Bld) [Moles/Vol] 24 mmol/L Normal 22-26 [facility] Comment on above: Performed By: #### L 500.4100, L500.4050, L100.0100 #### [facility] [address] [place], [address] O2 Delivery Dev Cannula Normal [facility] Comment on above: Performed By: #### L 500.4100, L500.4050, L100.0100 #### [facility] [address] [place], [address] SITE Not entered Normal [facility] Comment on above: Performed By: #### L 500.4100, L500.4050, L100.0100 #### [facility] [address] [place], [address] VBG BE -1 mmol/L Normal -1.0-3.5 [facility] Comment on above: Performed By: #### L 500.4100, L500.4050, L100.0100 #### [facility] [address] [place], [address] VBG pCO2 39.8 mmHg Low 41-51 [facility] Comment on above: Performed By: #### L 500.4100, L500.4050, L100.0100 #### [facility] [address] [place], [address] VBG pH 7.39 Normal 7.32-7.42 [facility] Comment on above: Performed By: #### L 500.4100, L500.4050, L100.0100 #### [facility] [address] [place], [address] VBG PO2 39 mmHg Normal 25-40 [facility] Comment on above: Performed By: #### L 500.4100, L500.4050, L100.0100 #### [facility] [address] [place], [address] VBG SO2 73 High 50-70 [facility] Comment on above: Performed By: #### L 500.4100, L500.4050, L100.0100 #### [facility] [place], [address] Venous blood base excess ana luisa surementOrdered By: Mago Jang on 04-01-2025 Base excess Calc (BldV) [Moles/Vol] -1 mmol/L -1.0-3.5 [facility] Venous blood bicarbonate ana luisa surementOrdered By: Mago Jang on 04-01-2025 HCO3 (Bld) [Moles/Vol] 24 mmol/L 22-26 [facility] Venous blood oxygen saturati on measurementOrdered By: Mago Jang on 04-01-2025 Oxygen saturation in Blood 73 % High 50-70 [facility] Venous blood pH measurementO rdered By: Mago Jang on 04-01-2025 pH (BldV) 7.39 [pH] 7.32-7.42 [facility] Venous blood partial pressur e of carbon dioxide measurementOrdered By: Mago Jang on 04-01-2025 CO2 (BldV) [Partial pressure] 39.8 mm[Hg] Low 41-51 [facility] Venous blood partial pressur e of oxygen measurementOrdered By: Mago Jang on 04-01-2025 Oxygen (BldV) [Partial pressure] 39 mm[Hg] 25-40 [facility] White blood cell (WBC) count Ordered By: Mago Jang on 04-01-2025 WBC (Bld) [#/Vol] 10.0 10*3/uL 4.4-11.0 [facility] Absolute lymphocyte countOrd ered By: Naima Garcia on 03-31-2025 Lymphocytes Auto (Unsp spec) [#/Vol] 2.64 10*3/uL 0.83-4.51 [facility] Absolute neutrophil countOrd ered By: Naima Garcia on 03-31-2025 Neutrophils (Bld) [#/Vol] 3.5 10*3/uL 2.0-7.7 [facility] Anion gap in Serum or Plasma Ordered By: Naima Garcia on 03-31-2025 Anion gap [Moles/Vol] 15 mmol/L 5-15 [facility] Automated lymphocyte count a s percentage of total leukocytesOrdered By: Naima Garcia on 03-31-2025 Lymphocytes/100 WBC Auto (Unsp spec) 37.3 % 19- [facility] BUN/creatinine ratioOrdered By: Naima Garcia on 03-31-2025 Urea nitrogen/Creatinine [Mass ratio] 14.8 mg/mg 10-20 [facility] Basophil percentageOrdered B y: Naima Garcia on 03-31-2025 Basophils/100 WBC (Bld) 0.8 % 0-1 [facility] Bilirubin, totalOrdered By: Naima Garcia on 03-31-2025 Bilirubin [Mass/Vol] 0.44 mg/dL 0.00-1.30 [facility] C-reactive protein measureme nt by high sensitivity methodOrdered By: Naima Garcia on 03-31-2025 C-reactive protein measurement by high sensitivity method 9.59 mg/L High 0.00-3.00 [facility] Comment on above: Relative Risk for Fu ture Cardiovascular Event Low <1.00 Average 1.00 - 3.00 High >3.00Performed at: [employer] [facility] [id number] Director: Jony Fitzpatrick PhD, Phone: [phone] CBC W/Diff, Automatedon Absolute Lymph 2.64 X10 3/uL Normal 0.83-4.51 [facility] Comment on above: Performed By: #### L 500.4100, L500.4050, L100.0100 #### [facility] [address] [place], [address] Absolute Neut 3.5 X10 3/uL Normal 2.0-7.7 [facility] Comment on above: Performed By: #### L 500.4100, L500.4050, L100.0100 #### [facility] [address] [place], [address] Basophils/100 WBC (Bld) 0.8 % Normal 0-1 [facility] Comment on above: Performed By: #### L 500.4100, L500.4050, L100.0100 #### [facility] [address] [place], [address] Eosinophils/100 WBC (Bld) 1.4 % Normal 0-5 [facility] Comment on above: Performed By: #### L 500.4100, L500.4050, L100.0100 #### [facility] [address] [place], [address] Erythrocyte distribution width (RBC) [Ratio] 14.1 % Normal 11.6-14.6 [facility] Comment on above: Performed By: #### L 500.4100, L500.4050, L100.0100 #### [facility] [address] [place], [address] Hematocrit (Bld) [Volume fraction] 43.3 % Normal 37-47 [facility] Comment on above: Performed By: #### L 500.4100, L500.4050, L100.0100 #### [facility] [address] [place], [address] Hemoglobin (Bld) [Mass/Vol] 14.2 g/dL Normal 12.0-15.0 [facility] Comment on above: Performed By: #### L 500.4100, L500.4050, L100.0100 #### [facility] [address] [place], [address] IG% 0.400 Normal 0.0-0.9 [facility] Comment on above: Result Comment: IG% - Immature Granulocytes (promyelocytes, myelocytes and metamyelocytes) > 1% indicates that a LEFT SHIFT is Present. Performed By: #### L 500.4100, L500.4050, L100.0100 #### [facility] [address] [place], [address] Lymphocytes/100 WBC (Bld) 37.3 % Normal 19-41 [facility] Comment on above: Performed By: #### L 500.4100, L500.4050, L100.0100 #### [facility] [address] [place], [address] MCH (RBC) [Entitic mass] 30.4 pg Normal 27.0-32.0 [facility] Comment on above: Performed By: #### L 500.4100, L500.4050, L100.0100 #### [facility] [address] [place], [address] MCHC (RBC) [Mass/Vol] 32.8 g/dL Normal 32-36 [facility] Comment on above: Performed By: #### L 500.4100, L500.4050, L100.0100 #### [facility] [address] [place], [address] MCV (RBC) [Entitic vol] 92.7 fL Normal 81-99 [facility] Comment on above: Performed By: #### L 500.4100, L500.4050, L100.0100 #### [facility] [address] [place], [address] Monocytes/100 WBC (Bld) 10.2 % High 0-10 [facility] Comment on above: Performed By: #### L 500.4100, L500.4050, L100.0100 #### [facility] [address] [place], [address] Neutrophils/100 WBC (Bld) 49.9 % Normal 47-70 [facility] Comment on above: Performed By: #### L 500.4100, L500.4050, L100.0100 #### [facility] [address] [place], [address] Nucleated RBC (Bld) [#/Vol] 0 10*3/uL Normal 0-5 [facility] Comment on above: Performed By: #### L 500.4100, L500.4050, L100.0100 #### [facility] [address] [place], [address] Platelet mean volume (Bld) [Entitic vol] 13.9 fL High 6.2-12.0 [facility] Comment on above: Performed By: #### L 500.4100, L500.4050, L100.0100 #### [facility] [address] [place], [address] Platelets (Bld) [#/Vol] 204 10*3/uL Normal 150-450 [facility] Comment on above: Performed By: #### L 500.4100, L500.4050, L100.0100 #### [facility] [address] [place], [address] RBC (Bld) [#/Vol] 4.67 10*6/uL Normal 4.2-5.4 [facility] Comment on above: Performed By: #### L 500.4100, L500.4050, L100.0100 #### [facility] [address] [place], [address] RDW SD 47.2 fl High 35.1-43.9 [facility] Comment on above: Performed By: #### L 500.4100, L500.4050, L100.0100 #### [facility] [address] [place], [address] WBC (Bld) [#/Vol] 7.1 10*3/uL Normal 4.4-11.0 [facility] Comment on above: Performed By: #### L 500.4100, L500.4050, L100.0100 #### [facility] [address] [place], [address] Carbon dioxide, total [Moles /volume] in Central venous bloodOrdered By: Naima Garcia on 03-31-2025 CO2 [Moles/Vol] 19.0 mmol/L Low 21.0-32.0 [facility] Chloride assayOrdered By: Do ra Garcia on 03-31-2025 Chloride [Moles/Vol] 103 mmol/L 98-108 [facility] Comprehensive Metabolic Prof ilon 03-31-2025 Albumin [Mass/Vol] 4.0 g/dL Normal 3.4-4.8 [facility] Comment on above: Performed By: #### L 500.4100, L500.4050, L100.0100 #### [facility] [address] [place], [address] Albumin/Globulin [Mass ratio] 1.4 {ratio} Normal 0.9-2.4 [facility] Comment on above: Performed By: #### L 500.4100, L500.4050, L100.0100 #### [facility] [address] [place], [address] ALK PHOS 130 U/L High 35-104 [facility] Comment on above: Performed By: #### L 500.4100, L500.4050, L100.0100 #### [facility] [address] [place], [address] ALT [Catalytic activity/Vol] 53 U/L High <=34 [facility] Comment on above: Performed By: #### L 500.4100, L500.4050, L100.0100 #### [facility] [address] [place], [address] AST [Catalytic activity/Vol] 28 U/L Normal <=31 [facility] Comment on above: Performed By: #### L 500.4100, L500.4050, L100.0100 #### [facility] [address] [place], [address] Bilirubin [Mass/Vol] 0.44 mg/dL Normal 0.00-1.30 [facility] Comment on above: Performed By: #### L 500.4100, L500.4050, L100.0100 #### [facility] [address] [place], [address] BUN/CRE 14.8 RATIO Normal 10-20 [facility] Comment on above: Performed By: #### L 500.4100, L500.4050, L100.0100 #### [facility] [address] [place], [address] Calcium [Mass/Vol] 9.3 mg/dL Normal 7.6-11.0 [facility] Comment on above: Performed By: #### L 500.4100, L500.4050, L100.0100 #### [facility] [address] [place], [address] Chloride [Moles/Vol] 103 mmol/L Normal 98-108 [facility] Comment on above: Performed By: #### L 500.4100, L500.4050, L100.0100 #### [facility] [address] [place], [address] CO2 [Moles/Vol] 19.0 mmol/L Low 21.0-32.0 [facility] Comment on above: Performed By: #### L 500.4100, L500.4050, L100.0100 #### [facility] [address] [place], [address] Creatinine [Mass/Vol] 0.49 mg/dL Low 0.70-1.20 [facility] Comment on above: Performed By: #### L 500.4100, L500.4050, L100.0100 #### [facility] [address] [place], [address] GAP 15 Normal 5-15 [facility] Comment on above: Performed By: #### L 500.4100, L500.4050, L100.0100 #### [facility] [address] [place], [address] GFR/1.73 sq M.predicted among non-blacks MDRD (S/P/Bld) [Vol rate/Area] 106 mL/min/{1.73_m2} Normal >60 [facility] Comment on above: Result Comment: mL/m in/1.73m2 CKD-EPI Creatinine Equation (2020) Performed By: #### L 500.4100, L500.4050, L100.0100 #### [facility] [address] [place], [address] Globulin (S) [Mass/Vol] 2.9 g/dL Normal 2.2-4.2 [facility] Comment on above: Performed By: #### L 500.4100, L500.4050, L100.0100 #### [facility] [address] [place], [address] Glucose [Mass/Vol] 242 mg/dL High 70-99 [facility] Comment on above: Performed By: #### L 500.4100, L500.4050, L100.0100 #### [facility] [address] [place], [address] Potassium [Moles/Vol] 4.1 mmol/L Normal 3.3-5.1 [facility] Comment on above: Performed By: #### L 500.4100, L500.4050, L100.0100 #### [facility] [address] [place], [address] Sodium [Moles/Vol] 137 mmol/L Normal 133-145 [facility] Comment on above: Performed By: #### L 500.4100, L500.4050, L100.0100 #### [facility] [address] [place], [address] T PROT 6.9 g/dL Normal 5.9-8.4 [facility] Comment on above: Performed By: #### L 500.4100, L500.4050, L100.0100 #### [facility] [address] [place], [address] Urea nitrogen [Mass/Vol] 7 mg/dL Normal 4-19 [facility] Comment on above: Performed By: #### L 500.4100, L500.4050, L100.0100 #### [facility] [address] [place], [address] Eosinophil percentageOrdered By: Naima Garcia on 03-31-2025 Eosinophils/100 WBC (Bld) 1.4 % 0-5 [facility] Erythrocyte distribution wid th ratioOrdered By: Naima Garcia on 03-31-2025 Erythrocyte distribution width (RBC) [Ratio] 14.1 % 11.6-14.6 [facility] Erythrocyte distribution wid th standard deviationOrdered By: Naima Garcia on 03-31-2025 Erythrocyte distribution width (RBC) [Ratio] 47.2 fl High 35.1-43.9 [facility] Glomerular filtration rate ( GFR) estimation/1.73 sq m using serum, plasma, or whole bOrdered By: Naima Garcia on 03-31-2025 GFR/1.73 sq M.predicted among non-blacks MDRD (S/P/Bld) [Vol rate/Area] 106 mL/min/{1.73_m2} >60 [facility] Comment on above: mL/min/1.73m2 CKD-EP I Creatinine Equation (2020) Hematocrit Auto (Bld) [Volum e fraction]Ordered By: Naima Garcia on 03-31-2025 Hematocrit (Bld) [Volume fraction] 43.3 % 37-47 [facility] Hemoglobin A1con 03-31-2025 HbA1c (Bld) [Mass fraction] 12.0 % High <=5.6 [facility] Comment on above: Result Comment: Norm al < 5.7 % Prediabetic 5.7 - 6.4 % Diabetic >or= 6.5 % Please note range changes. Performed By: #### L 500.0960, L500.4050, L100.0100 #### [facility] [address] [place], [address] Hemoglobin A1c percentageOrd ered By: Naima Garcia on 03-31-2025 HbA1c (Bld) [Mass fraction] 12.0 % High <5.7 [facility] Comment on above: Normal < 5.7 % Predi abetic 5.7 - 6.4 % Diabetic >or= 6.5 % Please note range changes. Hemoglobin measurementOrdere d By: Naima Garcia on 03-31-2025 Hemoglobin (Bld) [Mass/Vol] 14.2 g/dL 12.0-15.0 [facility] Immature granulocytes/100 WB C Auto (Bld)Ordered By: Naima Garcia on 03-31-2025 Immature granulocytes/100 WBC (Bld) 0.400 % 0.0-0.9 [facility] Comment on above: IG% - Immature Granu locytes (promyelocytes, myelocytes and metamyelocytes) > 1% indicates that a LEFT SHIFT is Present. Laboratory - Chemistry and C hemistry - challengeOrdered By: Naima Garcia on 03-31-2025 AST [Catalytic activity/Vol] 28 U/L <32 [facility] MCV (mean corpuscular volume ) determinationOrdered By: Naima Garcia on 03-31-2025 MCV (RBC) [Entitic vol] 92.7 fL 81-99 [facility] Mean corpuscular hemoglobin (MCH) determinationOrdered By: Naima Garcia on 03-31-2025 MCH (RBC) [Entitic mass] 30.4 pg 27.0-32.0 [facility] Mean corpuscular hemoglobin concentration (MCHC) determinationOrdered By: Naima Garcia on 03-31-2025 MCHC (RBC) [Mass/Vol] 32.8 g/dL 32-36 [facility] Mean platelet volume determi nationOrdered By: Naima Garcia on 03-31-2025 Platelet mean volume (Bld) [Entitic vol] 13.9 fL High 6.2-12.0 [facility] Monocyte percentageOrdered B y: Naima Garcia on 03-31-2025 Monocytes/100 WBC (Bld) 10.2 % High 0-10 [facility] Neutrophil percentageOrdered By: Naima Garcia on 03-31-2025 Neutrophils/100 WBC (Bld) 49.9 % 47-70 [facility] Nucleated red blood cell per centageOrdered By: Naima Garcia on 03-31-2025 Nucleated RBC/100 WBC (Bld) [Ratio] 0 % 0-5 [facility] Platelet countOrdered By: Do ra Garcia on 03-31-2025 Platelets (Bld) [#/Vol] 204 10*3/uL 150-450 [facility] Potassium measurement (mass/ volume)Ordered By: Naima Garcia on 03-31-2025 Potassium (Unsp spec) [Mass/Vol] 4.1 mmol/L 3.3-5.1 [facility] RBC Auto (Bld) [#/Vol]Ordere d By: Naima Garcia on 03-31-2025 RBC (Bld) [#/Vol] 4.67 10*6/uL 4.2-5.4 [facility] Serum creatinine measurement (mass/volume)Ordered By: Naima Garcia on 03-31-2025 Creatinine [Mass/Vol] 0.49 mg/dL Low 0.70-1.20 [facility] Serum globulin measurementOr dered By: Naima Garcia on 03-31-2025 Globulin (S) [Mass/Vol] 2.9 g/dL 2.2-4.2 [facility] Serum glucose measurement (m ass/volume)Ordered By: Naima Garcia on 03-31-2025 Glucose [Mass/Vol] 242 mg/dL High 70-99 [facility] Serum or plasma alanine lamb otransferase (ALT) measurementOrdered By: Naima Garcia on 03-31-2025 ALT [Catalytic activity/Vol] 53 U/L High <35 [facility] Serum or plasma albumin sylvia urement (mass/volume)Ordered By: Naima Garcia on 03-31-2025 Albumin [Mass/Vol] 4.0 g/dL 3.4-4.8 [facility] Serum or plasma albumin/glob ulin mass ratioOrdered By: Naima Garcia on 03-31-2025 Albumin/Globulin [Mass ratio] 1.4 {ratio} 0.9-2.4 [facility] Serum or plasma alkaline cydney sphatase measurementOrdered By: Naima Garcia on 03-31-2025 ALP [Catalytic activity/Vol] 130 U/L High 35-104 [facility] Serum or plasma calcium sylvia urement (mass/volume)Ordered By: Naima Garcia on 03-31-2025 Calcium [Mass/Vol] 9.3 mg/dL 7.6-11.0 [facility] Serum or plasma urea nitroge n measurement (mass/volume)Ordered By: Naima Garcia on 03-31-2025 Urea nitrogen [Mass/Vol] 7 mg/dL 4-19 [facility] Sodium levelOrdered By: Naima Garcia on 03-31-2025 Sodium [Moles/Vol] 137 mmol/L 133-145 [facility] TSH DL <= 0.005 mIU/L QnOrde red By: Naima Garcia on 03-31-2025 TSH Qn 1.490 uIU/mL 0.300-4.200 [facility] Thyroid Stim Hormone (TSH)on 03-31-2025 TSH 1.490 uIU/mL Normal 0.300-4.200 [facility] Comment on above: Performed By: #### L 503.7505 #### [facility] [address] [place] [address], [id number] Total proteinOrdered By: Jamie Garcia on 03-31-2025 Protein [Mass/Vol] 6.9 g/dL 5.9-8.4 [facility] Troponin T.cardiac [Mass/vol ume] in Serum or Plasma by High sensitivity methodOrdered By: Naima Garcia on 03-31-2025 Troponin T.cardiac High sensitivity method [Mass/Vol] 153 ng/L High <14 [facility] Comment on above: Critical Result(s) C alled at: 1920 by: YMUI NEGRETE TO NAIMA GARCIA Results read back by same. White blood cell (WBC) count Ordered By: Naima Garcia on 03-31-2025 WBC (Bld) [#/Vol] 7.1 10*3/uL 4.4-11.0 [facility] Absolute lymphocyte countOrd ered By: Naima Garcia on 03-20-2025 Lymphocytes Auto (Unsp spec) [#/Vol] 3.30 10*3/uL 0.83-4.51 [facility] Absolute neutrophil countOrd ered By: Naima Garcia on 03-20-2025 Neutrophils (Bld) [#/Vol] 3.0 10*3/uL 2.0-7.7 [facility] Anion gap in Serum or Plasma Ordered By: Naima Garcia on 03-20-2025 Anion gap [Moles/Vol] 12 mmol/L 5-15 [facility] Automated lymphocyte count a s percentage of total leukocytesOrdered By: Naima Garcia on 03-20-2025 Lymphocytes/100 WBC Auto (Unsp spec) 45.0 % High 19-41 [facility] BUN/creatinine ratioOrdered By: Naima Garcia on 03-20-2025 Urea nitrogen/Creatinine [Mass ratio] 22.7 mg/mg High 10-20 [facility] Basophil percentageOrdered B y: Naima Garcia on 03-20-2025 Basophils/100 WBC (Bld) 1.0 % 0-1 [facility] Bilirubin, totalOrdered By: Naima Garcia on 03-20-2025 Bilirubin [Mass/Vol] 0.38 mg/dL 0.00-1.30 [facility] CBC W/Diff, Automatedon 02-23 Absolute Lymph 3.30 X10 3/uL Normal 0.83-4.51 [facility] Comment on above: Performed By: #### L 500.4100, L500.4050, L100.0100 #### [facility] [address] [place], [address] Absolute Neut 3.0 X10 3/uL Normal 2.0-7.7 [facility] Comment on above: Performed By: #### L 500.4100, L500.4050, L100.0100 #### [facility] [address] [place], [address] Basophils/100 WBC (Bld) 1.0 % Normal 0-1 [facility] Comment on above: Performed By: #### L 500.4100, L500.4050, L100.0100 #### [facility] [address] [place], [address] Eosinophils/100 WBC (Bld) 1.2 % Normal 0-5 [facility] Comment on above: Performed By: #### L 500.4100, L500.4050, L100.0100 #### [facility] [address] [place], [address] Erythrocyte distribution width (RBC) [Ratio] 13.6 % Normal 11.6-14.6 [facility] Comment on above: Performed By: #### L 500.4100, L500.4050, L100.0100 #### [facility] [address] [place], [address] Hematocrit (Bld) [Volume fraction] 45.3 % Normal 37-47 [facility] Comment on above: Performed By: #### L 500.4100, L500.4050, L100.0100 #### [facility] [address] [place], [address] Hemoglobin (Bld) [Mass/Vol] 15.0 g/dL Normal 12.0-15.0 [facility] Comment on above: Performed By: #### L 500.4100, L500.4050, L100.0100 #### [facility] [address] [place], [address] IG% 0.100 Normal 0.0-0.9 [facility] Comment on above: Result Comment: IG% - Immature Granulocytes (promyelocytes, myelocytes and metamyelocytes) > 1% indicates that a LEFT SHIFT is Present. Performed By: #### L 500.4100, L500.4050, L100.0100 #### [facility] [address] [place], [address] Lymphocytes/100 WBC (Bld) 45.0 % High 19-41 [facility] Comment on above: Performed By: #### L 500.4100, L500.4050, L100.0100 #### [facility] [address] [place], [address] MCH (RBC) [Entitic mass] 30.4 pg Normal 27.0-32.0 [facility] Comment on above: Performed By: #### L 500.4100, L500.4050, L100.0100 #### [facility] [address] [place], [address] MCHC (RBC) [Mass/Vol] 33.1 g/dL Normal 32-36 [facility] Comment on above: Performed By: #### L 500.4100, L500.4050, L100.0100 #### [facility] [address] [place], [address] MCV (RBC) [Entitic vol] 91.7 fL Normal 81-99 [facility] Comment on above: Performed By: #### L 500.4100, L500.4050, L100.0100 #### [facility] [address] [place], [address] Monocytes/100 WBC (Bld) 11.4 % High 0-10 [facility] Comment on above: Performed By: #### L 500.4100, L500.4050, L100.0100 #### [facility] [address] [place], [address] Neutrophils/100 WBC (Bld) 41.3 % Low 47-70 [facility] Comment on above: Performed By: #### L 500.4100, L500.4050, L100.0100 #### [facility] [address] [place], [address] Nucleated RBC (Bld) [#/Vol] 0 10*3/uL Normal 0-5 [facility] Comment on above: Performed By: #### L 500.4100, L500.4050, L100.0100 #### [facility] [address] [place], [address] Platelet mean volume (Bld) [Entitic vol] 13.6 fL High 6.2-12.0 [facility] Comment on above: Performed By: #### L 500.4100, L500.4050, L100.0100 #### [facility] [address] [place], [address] Platelets (Bld) [#/Vol] 193 10*3/uL Normal 150-450 [facility] Comment on above: Performed By: #### L 500.4100, L500.4050, L100.0100 #### [facility] [address] [place], [address] RBC (Bld) [#/Vol] 4.94 10*6/uL Normal 4.2-5.4 [facility] Comment on above: Performed By: #### L 500.4100, L500.4050, L100.0100 #### [facility] [address] [place], [address] RDW SD 46.1 fl High 35.1-43.9 [facility] Comment on above: Performed By: #### L 500.4100, L500.4050, L100.0100 #### [facility] [address] [place], [address] WBC (Bld) [#/Vol] 7.3 10*3/uL Normal 4.4-11.0 [facility] Comment on above: Performed By: #### L 500.4100, L500.4050, L100.0100 #### [facility] [address] [place], [address] Calculated very low density lipoprotein (VLDL) cholesterol measurementOrdered By: Naima Garcia on 03-20-2025 Calculated very low density lipoprotein (VLDL) cholesterol measurement 76 mg/dL High 5-40 [facility] Carbon dioxide, total [Moles /volume] in Central venous bloodOrdered By: Naima Garcia on 03-20-2025 CO2 [Moles/Vol] 23.3 mmol/L 21.0-32.0 [facility] Chloride assayOrdered By: Do ra Garcia on 03-20-2025 Chloride [Moles/Vol] 100 mmol/L 98-108 [facility] Comprehensive Metabolic Prof ilon 03-20-2025 Albumin [Mass/Vol] 4.3 g/dL Normal 3.4-4.8 [facility] Comment on above: Order Comment: TIME OF COLLECTION UNKNOW Performed By: #### L 500.4100, L500.4050, L100.0100 #### [facility] [address] [place], [address] Albumin/Globulin [Mass ratio] 1.4 {ratio} Normal 0.9-2.4 [facility] Comment on above: Order Comment: TIME OF COLLECTION UNKNOW Performed By: #### L 500.4100, L500.4050, L100.0100 #### [facility] [address] [place], [address] ALK PHOS 131 U/L High 35-104 [facility] Comment on above: Order Comment: TIME OF COLLECTION UNKNOW Performed By: #### L 500.4100, L500.4050, L100.0100 #### [facility] [address] [place], [address] ALT [Catalytic activity/Vol] 21 U/L Normal <=34 [facility] Comment on above: Order Comment: TIME OF COLLECTION UNKNOW Performed By: #### L 500.4100, L500.4050, L100.0100 #### [facility] [address] [place], [address] AST [Catalytic activity/Vol] 17 U/L Normal <=31 [facility] Comment on above: Order Comment: TIME OF COLLECTION UNKNOW Performed By: #### L 500.4100, L500.4050, L100.0100 #### [facility] [address] [place], [address] Bilirubin [Mass/Vol] 0.38 mg/dL Normal 0.00-1.30 [facility] Comment on above: Order Comment: TIME OF COLLECTION UNKNOW Performed By: #### L 500.4100, L500.4050, L100.0100 #### [facility] [address] [place], [address] BUN/CRE 22.7 RATIO High 10-20 [facility] Comment on above: Order Comment: TIME OF COLLECTION UNKNOW Performed By: #### L 500.4100, L500.4050, L100.0100 #### [facility] [address] [place], [address] Calcium [Mass/Vol] 9.5 mg/dL Normal 7.6-11.0 [facility] Comment on above: Order Comment: TIME OF COLLECTION UNKNOW Performed By: #### L 500.4100, L500.4050, L100.0100 #### [facility] [facility] [address] [place], [address] Chloride [Moles/Vol] 100 mmol/L Normal 98-108 [facility] Comment on above: Order Comment: TIME OF COLLECTION UNKNOW Performed By: #### L 500.4100, L500.4050, L100.0100 #### [facility] [address] [place], [address] CO2 [Moles/Vol] 23.3 mmol/L Normal 21.0-32.0 [facility] Comment on above: Order Comment: TIME OF COLLECTION UNKNOW Performed By: #### L 500.4100, L500.4050, L100.0100 #### [facility] [address] [place], [address] Creatinine [Mass/Vol] 0.58 mg/dL Low 0.70-1.20 [facility] Comment on above: Order Comment: TIME OF COLLECTION UNKNOW Performed By: #### L 500.4100, L500.4050, L100.0100 #### [facility] [address] [place], [address] GAP 12 Normal 5-15 [facility] Comment on above: Order Comment: TIME OF COLLECTION UNKNOW Performed By: #### L 500.4100, L500.4050, L100.0100 #### [facility] [address] [place], [address] GFR/1.73 sq M.predicted among non-blacks MDRD (S/P/Bld) [Vol rate/Area] 102 mL/min/{1.73_m2} Normal >60 [facility] Comment on above: Order Comment: TIME OF COLLECTION UNKNOW Result Comment: mL/m in/1.73m2 CKD-EPI Creatinine Equation (2020) Performed By: #### L 500.4100, L500.4050, L100.0100 #### [facility] [address] [place], [address] Globulin (S) [Mass/Vol] 3.0 g/dL Normal 2.2-4.2 [facility] Comment on above: Order Comment: TIME OF COLLECTION UNKNOW Performed By: #### L 500.4100, L500.4050, L100.0100 #### [facility] [address] [place], [address] Glucose [Mass/Vol] 250 mg/dL High 70-99 [facility] Comment on above: Order Comment: TIME OF COLLECTION UNKNOW Performed By: #### L 500.4100, L500.4050, L100.0100 #### [facility] [address] [place], [address] Potassium [Moles/Vol] 4.5 mmol/L Normal 3.3-5.1 [facility] Comment on above: Order Comment: TIME OF COLLECTION UNKNOW Performed By: #### L 500.4100, L500.4050, L100.0100 #### [facility] [address] [place], [address] Sodium [Moles/Vol] 136 mmol/L Normal 133-145 [facility] Comment on above: Order Comment: TIME OF COLLECTION UNKNOW Performed By: #### L 500.4100, L500.4050, L100.0100 #### [facility] [address] [place], [address] T PROT 7.2 g/dL Normal 5.9-8.4 [facility] Comment on above: Order Comment: TIME OF COLLECTION UNKNOW Performed By: #### L 500.4100, L500.4050, L100.0100 #### [facility] [address] [place], [address] Urea nitrogen [Mass/Vol] 13 mg/dL Normal 4-19 [facility] Comment on above: Order Comment: TIME OF COLLECTION UNKNOW Performed By: #### L 500.4100, L500.4050, L100.0100 #### [facility] [address] [place], [address] Digoxin Levelon 03-20-2025 DIG 0.76 ng/mL Normal 0.00-2.00 [facility] Comment on above: Performed By: #### L 500.4100, L500.4050, L100.0100 #### [facility] [address] [place], [address] Eosinophil percentageOrdered By: Naima Garcia on 03-20-2025 Eosinophils/100 WBC (Bld) 1.2 % 0-5 [facility] Erythrocyte distribution wid th ratioOrdered By: Naima Garcia on 03-20-2025 Erythrocyte distribution width (RBC) [Ratio] 13.6 % 11.6-14.6 [facility] Erythrocyte distribution wid th standard deviationOrdered By: Naima Garcia on 03-20-2025 Erythrocyte distribution width (RBC) [Ratio] 46.1 fl High 35.1-43.9 [facility] Glomerular filtration rate ( GFR) estimation/1.73 sq m using serum, plasma, or whole bOrdered By: Naima Garcia on 03-20-2025 GFR/1.73 sq M.predicted among non-blacks MDRD (S/P/Bld) [Vol rate/Area] 102 mL/min/{1.73_m2} >60 [facility] Comment on above: mL/min/1.73m2 CKD-EP I Creatinine Equation (2020) Hematocrit Auto (Bld) [Volum e fraction]Ordered By: Naima Garcia on 03-20-2025 Hematocrit (Bld) [Volume fraction] 45.3 % 37-47 [facility] Hemoglobin measurementOrdere d By: Naima Garcia on 03-20-2025 Hemoglobin (Bld) [Mass/Vol] 15.0 g/dL 12.0-15.0 [facility] Immature granulocytes/100 WB C Auto (Bld)Ordered By: Naima Garcia on 03-20-2025 Immature granulocytes/100 WBC (Bld) 0.100 % 0.0-0.9 [facility] Comment on above: IG% - Immature Granu locytes (promyelocytes, myelocytes and metamyelocytes) > 1% indicates that a LEFT SHIFT is Present. LDL calc ser/plasOrdered By: Naima Garcia on 03-20-2025 Cholesterol in LDL [Mass/Vol] 160 mg/dL [facility] Comment on above: Qxumthtnag=532-528 m g/dL & Higher Vosz=108 mg/dL or greater Laboratory - Chemistry and C hemistry - challengeOrdered By: Naima Garcia on 03-20-2025 AST [Catalytic activity/Vol] 17 U/L <32 [facility] - Hematology and Cell countsOrdered By: Naima Garcia on 03-20-2025 HbA1c (Bld) [Mass fraction] 11.7 % High 4.2-6.3 [facility] Lipid Profileon 03-20-2025 CHOL:HDL 8.40 Normal [facility] Comment on above: Order Comment: TIME OF COLLECTION UNKNOW Performed By: #### L 500.4100, L500.4050, L100.0100 #### [facility] [address] [place], [address] Cholesterol [Mass/Vol] 268 mg/dL High <=200 [facility] Comment on above: Order Comment: TIME OF COLLECTION UNKNOW Result Comment: Chol esterol level, Desirable <200 mg/dL Borderline high cholesterol 200-239 mg/dL High cholesterol >=240 mg/dL Recommendations of the NCEP Adult Treatment Panel for the following risk-cutoff thresholds for the [place] population. Performed By: #### L 500.4100, L500.4050, L100.0100 #### [facility] [address] [place], [address] Cholesterol in HDL [Mass/Vol] 32 mg/dL Low [facility] Comment on above: Order Comment: TIME OF COLLECTION UNKNOW Result Comment: Sulema onal Cholesterol Education Program (NCEP) guidelines: <40 mg/dL: Low HDL-cholesterol (major risk factor for CHD) >= 60 mg/dL: High HDL-cholesterol (negative risk factor for CHD) HDL-cholesterol is affected by a number of factors, e.g. smoking, exercise, hormones, sex and age. Performed By: #### L 500.4100, L500.4050, L100.0100 #### [facility] [address] [place], [address] Cholesterol in LDL [Mass/Vol] 160 mg/dL Normal [facility] Comment on above: Order Comment: TIME OF COLLECTION UNKNOW Result Comment: Bord xtdgln=721-833 mg/dL Higher Kkvu=481 mg/dL or greater Performed By: #### L 500.4100, L500.4050, L100.0100 #### [facility] [address] [place], [address] Cholesterol in VLDL [Mass/Vol] 76 mg/dL High 5-40 [facility] Comment on above: Order Comment: TIME OF COLLECTION UNKNOW Performed By: #### L 500.4100, L500.4050, L100.0100 #### [facility] [address] [place], [address] Triglyceride [Mass/Vol] 380 mg/dL High [facility] Comment on above: Order Comment: TIME OF COLLECTION UNKNOW Result Comment: The drugs N-Acetylcysteine and Metamizole may falsely depress this assay. Normal range: <150 mg/dL Borderline High: 150-199 mg/dL High: 200-499 mg/dL Very High: >500 mg/dL Performed By: #### L 500.4100, L500.4050, L100.0100 #### [facility] [address] [place], [address] MCV (mean corpuscular volume ) determinationOrdered By: Naima Garcia on 03-20-2025 MCV (RBC) [Entitic vol] 91.7 fL 81-99 [facility] Mean corpuscular hemoglobin (MCH) determinationOrdered By: Naima Garcia on 03-20-2025 MCH (RBC) [Entitic mass] 30.4 pg 27.0-32.0 [facility] Mean corpuscular hemoglobin concentration (MCHC) determinationOrdered By: Naima Garcia on 03-20-2025 MCHC (RBC) [Mass/Vol] 33.1 g/dL 32-36 [facility] Mean platelet volume determi nationOrdered By: Naima Garcia on 03-20-2025 Platelet mean volume (Bld) [Entitic vol] 13.6 fL High 6.2-12.0 [facility] Monocyte percentageOrdered B y: Naima Garcia on 03-20-2025 Monocytes/100 WBC (Bld) 11.4 % High 0-10 [facility] Neutrophil percentageOrdered By: Naima Garcia on 03-20-2025 Neutrophils/100 WBC (Bld) 41.3 % Low 47-70 [facility] Nucleated red blood cell per centageOrdered By: Naima Garcia on 03-20-2025 Nucleated RBC/100 WBC (Bld) [Ratio] 0 % 0-5 [facility] Platelet countOrdered By: Do ra Garcia on 03-20-2025 Platelets (Bld) [#/Vol] 193 10*3/uL 150-450 [facility] Potassium measurement (mass/ volume)Ordered By: Naima Garcia on 03-20-2025 Potassium (Unsp spec) [Mass/Vol] 4.5 mmol/L 3.3-5.1 [facility] RBC Auto (Bld) [#/Vol]Ordere d By: Naima Garcia on 03-20-2025 RBC (Bld) [#/Vol] 4.94 10*6/uL 4.2-5.4 [facility] Screening total cholesterol/ high density lipoprotein (HDL) cholesterol ratioOrdered By: Naima Garcia on 03-20-2025 Cholesterol.total/Michelle sterol in HDL [Mass ratio] 8.40 {ratio} [facility] Serum creatinine measurement (mass/volume)Ordered By: Naima Garcia on 03-20-2025 Creatinine [Mass/Vol] 0.58 mg/dL Low 0.70-1.20 [facility] Serum globulin measurementOr dered By: Naima Garcia on 03-20-2025 Globulin (S) [Mass/Vol] 3.0 g/dL 2.2-4.2 [facility] Serum glucose measurement (m ass/volume)Ordered By: Naima Garcia on 03-20-2025 Glucose [Mass/Vol] 250 mg/dL High 70-99 [facility] Serum or plasma alanine lamb otransferase (ALT) measurementOrdered By: Naima Garcia on 03-20-2025 ALT [Catalytic activity/Vol] 21 U/L <35 [facility] Serum or plasma albumin sylvia urement (mass/volume)Ordered By: Naima Garcia on 03-20-2025 Albumin [Mass/Vol] 4.3 g/dL 3.4-4.8 [facility] Serum or plasma albumin/glob ulin mass ratioOrdered By: Naima Garcia on 03-20-2025 Albumin/Globulin [Mass ratio] 1.4 {ratio} 0.9-2.4 [facility] Serum or plasma alkaline cydney sphatase measurementOrdered By: Naima Garcia on 03-20-2025 ALP [Catalytic activity/Vol] 131 U/L High 35-104 [facility] Serum or plasma calcium sylvia urement (mass/volume)Ordered By: Naima Garcia on 03-20-2025 Calcium [Mass/Vol] 9.5 mg/dL 7.6-11.0 [facility] Serum or plasma cholesterol in HDL measurement (mass/volume)Ordered By: Naima Garcia on 03-20-2025 Cholesterol in HDL [Mass/Vol] 32 mg/dL Low >40 [facility] Comment on above: National Cholesterol Education Program (NCEP) guidelines:<40 mg/dL: Low HDL-cholesterol (major risk factor for CHD)>= 60 mg/dL: High HDL-cholesterol (negative risk factor for CHD)HDL-cholesterol is affected by a number of factors, e.g. smoking, exercise, hormones, sex and age. Serum or plasma cholesterol measurement (mass/volume)Ordered By: Naima Garcia on 03-20-2025 Cholesterol [Mass/Vol] 268 mg/dL High <201 [facility] Comment on above: Cholesterol level, D esirable <200 mg/dLBorderline high cholesterol 200-239 mg/dLHigh cholesterol >=240 mg/dLRecommendations of the NCEP Adult Treatment Panel for the following risk-cutoff thresholds for the [place] population. Serum or plasma digoxin sylvia urement (mass/volume)Ordered By: Naima Garcia on 03-20-2025 Digoxin [Mass/Vol] 0.76 ng/mL 0.00-2.00 [facility] Serum or plasma urea nitroge n measurement (mass/volume)Ordered By: Naima Garcia on 03-20-2025 Urea nitrogen [Mass/Vol] 13 mg/dL 4-19 [facility] Sodium levelOrdered By: Naima Garcia on 03-20-2025 Sodium [Moles/Vol] 136 mmol/L 133-145 [facility] Total proteinOrdered By: Jamie Garcia on 03-20-2025 Protein [Mass/Vol] 7.2 g/dL 5.9-8.4 [facility] Triglycerides measurementOrd ered By: Naima Garcia on 03-20-2025 Triglyceride [Mass/Vol] 380 mg/dL High <199 [facility] Comment on above: The drugs N-Acetylcy steine and Metamizole may falsely depress this assay. Normal range: <150 mg/dLBorderline High: 150-199 mg/dLHigh: 200-499 mg/dLVery High: >500 mg/dL White blood cell (WBC) count Ordered By: Naima Garcia on 03-20-2025 WBC (Bld) [#/Vol] 7.3 10*3/uL 4.4-11.0 [facility] Wound Cultureon 12-15-2024 WC DEEP SURGICAL WOUND Copy of report sent to Infection Control Printer [id number] 12/15/24 0274 VSICK. ESBL Escherichia coli Amount Growth 1+ [...] S Vancomycin Islt HERNANDO 0.5 S Normal [facility] Comment on above: Performed By: #### M 100.3000, M100.2000 ####[facility] [id number] [place], [address] Gram Stainon 12-13-2024 GS DEEP SURGICAL WOUND Gram Stain 2+ White Blood Cells 3+ Gram positive cocci No Epithelial cells Normal [facility] Comment on above: Performed By: #### M 100.3000, M100.2000 ####[facility] [id number] [place], [place], [address] Gram stainOrdered By: Naima cantor on 12-12-2024 Microscopic observation Gram stain Nom (Unsp spec) [facility] Routine wound cultureOrdered By: Naima Garcia on 12-12-2024 Microbial culture, routine Streptococcus agalactiae (B) Abnormal [facility] Wound Culture ESBL Escherichia coli Abnormal [facility] Wound Culture Streptococcus agalactiae (B) Abnormal [facility] Bedside Glucoseon 12-10-2024 FINGERSTICK GLU 287 mg/dL High 74-106 [facility] Comment on above: Result Comment: [place] OF PATIENT CARE PER NURSING PROTOCOL Performed By: #### L 501.080 ####[facility] [id number] [place], [place], [address] Absolute lymphocyte countOrd ered By: Sydnee Doran on 12-09-2024 Lymphocytes Auto (Unsp spec) [#/Vol] 2.99 10*3/uL 0.83-4.51 [facility] Absolute neutrophil countOrd ered By: Sydnee Doran on 12-09-2024 Neutrophils (Bld) [#/Vol] 5.0 10*3/uL 2.0-7.7 [facility] Anion gap in Serum or Plasma Ordered By: Sydnee Doran on 12-09-2024 Anion gap [Moles/Vol] 12 mmol/L 02-05 [facility] Automated lymphocyte count a s percentage of total leukocytesOrdered By: Sydnee Doran on 12-09-2024 Lymphocytes/100 WBC Auto (Unsp spec) 32.8 % [facility] BUN/creatinine ratioOrdered By: Sydnee Doran on 12-09-2024 Urea nitrogen/Creatinine [Mass ratio] 17.7 mg/mg - [facility] Basic Metabolic Profile (BMP )on 12-09-2024 BUN/CRE 17.7 RATIO Normal 07-13 [facility] Comment on above: Performed By: #### L 500.4100, L500.4050, L100.0100 #### [facility] [address] [place], [address] Calcium [Mass/Vol] 9.4 mg/dL Normal 7.6-11.0 [facility] Comment on above: Performed By: #### L 500.4100, L500.4050, L100.0100 #### [facility] [address] [place], [address] Chloride [Moles/Vol] 101 mmol/L Normal 98-108 [facility] Comment on above: Performed By: #### L 500.4100, L500.4050, L100.0100 #### [facility] [address] [place], [address] CO2 [Moles/Vol] 19.6 mmol/L Low 21.0-32.0 [facility] Comment on above: Performed By: #### L 500.4100, L500.4050, L100.0100 #### [facility] [address] [place], [address] Creatinine [Mass/Vol] 0.56 mg/dL Low 0.70-1.20 [facility] Comment on above: Performed By: #### L 500.4100, L500.4050, L100.0100 #### [facility] [address] [place], [address] ECRCL 121.87 ml/min Normal 50-250 [facility] Comment on above: Performed By: #### L 500.4100, L500.4050, L100.0100 #### [facility] [address] [place], [address] GAP 12 Normal 5-15 [facility] Comment on above: Performed By: #### L 500.4100, L500.4050, L100.0100 #### [facility] [address] [place], [address] GFR/1.73 sq M.predicted among non-blacks MDRD (S/P/Bld) [Vol rate/Area] 103 mL/min/{1.73_m2} Normal >60 [facility] Comment on above: Result Comment: mL/m in/1.73m2 CKD-EPI Creatinine Equation (2020) Performed By: #### L 500.4100, L500.4050, L100.0100 #### [facility] [address] [place], [address] Glucose [Mass/Vol] 345 mg/dL High 70-99 [facility] Comment on above: Performed By: #### L 500.4100, L500.4050, L100.0100 #### [facility] [address] [place], [address] Potassium [Moles/Vol] 4.0 mmol/L Normal 3.3-5.1 [facility] Comment on above: Performed By: #### L 500.4100, L500.4050, L100.0100 #### [facility] [address] [place], [address] Sodium [Moles/Vol] 133 mmol/L Normal 133-145 [facility] Comment on above: Performed By: #### L 500.4100, L500.4050, L100.0100 #### [facility] [address] [place], [address] Urea nitrogen [Mass/Vol] 10 mg/dL Normal 4-19 [facility] Comment on above: Performed By: #### L 500.4100, L500.4050, L100.0100 #### [facility] [address] [place], [address] Basophil percentageOrdered B y: Sydnee Doran on 12-09-2024 Basophils/100 WBC (Bld) 1.0 % 0-1 [facility] CBC W/Diff, Automatedon 11-22 Absolute Lymph 2.99 X10 3/uL Normal 0.83-4.51 [facility] Comment on above: Performed By: #### L 500.4100, L500.4050, L100.0100 #### [facility] [address] [place], [address] Absolute Neut 5.0 X10 3/uL Normal 2.0-7.7 [facility] Comment on above: Performed By: #### L 500.4100, L500.4050, L100.0100 #### [facility] [address] [place], [address] Basophils/100 WBC (Bld) 1.0 % Normal 0-1 [facility] Comment on above: Performed By: #### L 500.4100, L500.4050, L100.0100 #### [facility] [address] [place], [address] Eosinophils/100 WBC (Bld) 1.0 % Normal 0-5 [facility] Comment on above: Performed By: #### L 500.4100, L500.4050, L100.0100 #### [facility] [address] [place], [address] Erythrocyte distribution width (RBC) [Ratio] 13.8 % Normal 11.6-14.6 [facility] Comment on above: Performed By: #### L 500.4100, L500.4050, L100.0100 #### [facility] [address] [place], [address] Hematocrit (Bld) [Volume fraction] 44.9 % Normal 37-47 [facility] Comment on above: Performed By: #### L 500.4100, L500.4050, L100.0100 #### [facility] [address] [place], [address] Hemoglobin (Bld) [Mass/Vol] 14.8 g/dL Normal 12.0-15.0 [facility] Comment on above: Performed By: #### L 500.4100, L500.4050, L100.0100 #### [facility] [address] [place], [address] IG% 0.400 Normal 0.0-0.9 [facility] Comment on above: Result Comment: IG% - Immature Granulocytes (promyelocytes, myelocytes and metamyelocytes) > 1% indicates that a LEFT SHIFT is Present. Performed By: #### L 500.4100, L500.4050, L100.0100 #### [facility] [address] [place], [address] Lymphocytes/100 WBC (Bld) 32.8 % Normal 19-41 [facility] Comment on above: Performed By: #### L 500.4100, L500.4050, L100.0100 #### [facility] [address] [place], [address] MCH (RBC) [Entitic mass] 29.9 pg Normal 27.0-32.0 [facility] Comment on above: Performed By: #### L 500.4100, L500.4050, L100.0100 #### [facility] [address] [place], [address] MCHC (RBC) [Mass/Vol] 33.0 g/dL Normal 32-36 [facility] Comment on above: Performed By: #### L 500.4100, L500.4050, L100.0100 #### [facility] [address] [place], [address] MCV (RBC) [Entitic vol] 90.7 fL Normal 81-99 [facility] Comment on above: Performed By: #### L 500.4100, L500.4050, L100.0100 #### [facility] [address] [place], [address] Monocytes/100 WBC (Bld) 10.4 % High 0-10 [facility] Comment on above: Performed By: #### L 500.4100, L500.4050, L100.0100 #### [facility] [address] [place], [address] Neutrophils/100 WBC (Bld) 54.4 % Normal 47-70 [facility] Comment on above: Performed By: #### L 500.4100, L500.4050, L100.0100 #### [facility] [address] [place], [address] Nucleated RBC (Bld) [#/Vol] 0 10*3/uL Normal 0-5 [facility] Comment on above: Performed By: #### L 500.4100, L500.4050, L100.0100 #### [facility] [address] [place], [address] Platelet mean volume (Bld) [Entitic vol] 12.7 fL High 6.2-12.0 [facility] Comment on above: Performed By: #### L 500.4100, L500.4050, L100.0100 #### [facility] [address] [place], [address] Platelets (Bld) [#/Vol] 218 10*3/uL Normal 150-450 [facility] Comment on above: Performed By: #### L 500.4100, L500.4050, L100.0100 #### [facility] [address] [place], [address] RBC (Bld) [#/Vol] 4.95 10*6/uL Normal 4.2-5.4 [facility] Comment on above: Performed By: #### L 500.4100, L500.4050, L100.0100 #### [facility] [address] [place], [address] RDW SD 45.8 fl High 35.1-43.9 [facility] Comment on above: Performed By: #### L 500.4100, L500.4050, L100.0100 #### [facility] [address] [place], [address] WBC (Bld) [#/Vol] 9.1 10*3/uL Normal 4.4-11.0 [facility] Comment on above: Performed By: #### L 500.4100, L500.4050, L100.0100 #### [facility] [address] [place], [address] Carbon dioxide, total [Moles /volume] in Central venous bloodOrdered By: Sydnee Doran on 12-09-2024 CO2 [Moles/Vol] 19.6 mmol/L Low 21.0-32.0 [facility] Chloride assayOrdered By: Mariya Doran on 12-09-2024 Chloride [Moles/Vol] 101 mmol/L 98-108 [facility] Emergency Department Summary on 12-09-2024 Emergency Department Summary [facility] Medical Records Department [address] [place] [address] Emergency Department Summary 12/09/24 MR#: [id number] Acct: [id number] Name: EAMON HUSTON Rep #: [id number] : 1960 64 From: Sydnee GUTIERRES PCP: Naima Garcia RIB CUTTER-C Status:DEP ER Location: ED HPI History of [...] does report a history of uncontrolled diabetes. [facility] Medical History ESBL (extended spectrum beta-lactamase) [...] Type Severity Reaction Status Date / Time Caevdsm-AYL-PwN Reductase Allergy Intermediate cramps Verified 12/09/24 19:24 Inhibitor (Jwnboqb-Fhf-Qge Reductase Inhibitor) Family History Sister Breast cancer [...] well de (more content not included)... Normal [facility] Eosinophil percentageOrdered By: Sydnee Doran on 12-09-2024 Eosinophils/100 WBC (Bld) 1.0 % 0-5 [facility] Erythrocyte distribution wid th ratioOrdered By: Sydnee Doran on 12-09-2024 Erythrocyte distribution width (RBC) [Ratio] 13.8 % 11.6-14.6 [facility] Erythrocyte distribution wid th standard deviationOrdered By: Sydnee Doran on 12-09-2024 Erythrocyte distribution width (RBC) [Entitic vol] 45.8 fL High 35.1-43.9 [facility] Erythrocyte distribution width (RBC) [Ratio] 45.8 fl High 35.1-43.9 [facility] Estimation of creatinine joanna aranceOrdered By: Sydnee Doran on 12-09-2024 Estimated Creatinine Clearance Calc 121.87 ml/min 50-250 [facility] GFR/1.73 sq M.predicted rachel g non-blacks MDRD (S/P/Bld) [Vol rate/Area]Ordered By: Sydnee Doran on 12-09-2024 Estimated GFR (MDRD) Non-Af Amer 103 >60 [facility] Comment on above: mL/min/1.73m2 CKD-EP I Creatinine Equation (2020) Glomerular filtration rate ( GFR) estimation/1.73 sq m using serum, plasma, or whole bOrdered By: Sydnee Doran on 12-09-2024 GFR/1.73 sq M.predicted among non-blacks MDRD (S/P/Bld) [Vol rate/Area] 103 mL/min/{1.73_m2} >60 [facility] Comment on above: mL/min/1.73m2 CKD-EP I Creatinine Equation (2020) Glucose measurement at [facility] deOrdered By: Nik Bundy on 12-09-2024 Bedside Glucose (Misc Panel) 287 mg/dL High 74-106 [facility] Comment on above: MANAGEMENT OF PATIEN T CARE PER NURSING PROTOCOL Glucose [Mass/Vol] 287 mg/dL High 74-106 [facility] Comment on above: MANAGEMENT OF PATIEN T CARE PER NURSING PROTOCOL Hematocrit Auto (Bld) [Volum e fraction]Ordered By: Sydnee Doran on 12-09-2024 Hematocrit (Bld) [Volume fraction] 44.9 % 37-47 [facility] Hemoglobin measurementOrdere d By: Sydnee Doran on 12-09-2024 Hemoglobin (Bld) [Mass/Vol] 14.8 g/dL 12.0-15.0 [facility] Immature granulocytes/100 WB C Auto (Bld)Ordered By: Sydnee Doran on 12-09-2024 Immature granulocytes/100 WBC (Bld) 0.400 % 0.0-0.9 [facility] Comment on above: IG% - Immature Granu locytes (promyelocytes, myelocytes and metamyelocytes) > 1% indicates that a LEFT SHIFT is Present. Lymphocytes Auto (Unsp spec) [#/Vol]Ordered By: Sydnee Doran on 12-09-2024 Lymphocytes (Bld) [#/Vol] 2.99 10*3/uL 0.83-4.51 [facility] Lymphocytes/100 WBC Auto (Un sp spec)Ordered By: Sydnee Doran on 12-09-2024 Lymphocytes/100 WBC (Bld) 32.8 % 19-41 [facility] MCV (mean corpuscular volume ) determinationOrdered By: Sydnee Doran on 12-09-2024 MCV (RBC) [Entitic vol] 90.7 fL 81-99 [facility] Mean corpuscular hemoglobin (MCH) determinationOrdered By: Sydnee Doran on 12-09-2024 MCH (RBC) [Entitic mass] 29.9 pg 27.0-32.0 [facility] Mean corpuscular hemoglobin concentration (MCHC) determinationOrdered By: Sydnee Doran on 12-09-2024 MCHC (RBC) [Mass/Vol] 33.0 g/dL 32-36 [facility] Mean platelet volume determi nationOrdered By: Sydnee Doran on 12-09-2024 Platelet mean volume (Bld) [Entitic vol] 12.7 fL High 6.2-12.0 [facility] Monocyte percentageOrdered B y: Sydnee Doran on 12-09-2024 Monocytes/100 WBC (Bld) 10.4 % High 0-10 [facility] Neutrophil percentageOrdered By: Sydnee Doran on 12-09-2024 Neutrophils/100 WBC (Bld) 54.4 % 47-70 [facility] Nucleated red blood cell per centageOrdered By: Sydnee Doran on 12-09-2024 Nucleated RBC/100 WBC (Bld) [Ratio] 0 % 0-5 [facility] Platelet countOrdered By: Mariya Dorna on 12-09-2024 Platelets (Bld) [#/Vol] 218 10*3/uL 150-450 [facility] Potassium (Unsp spec) [Mass/ Vol]Ordered By: Sydnee Doran on 12-09-2024 Potassium [Moles/Vol] 4.0 mmol/L 3.3-5.1 [facility] Potassium measurement (mass/ volume)Ordered By: Sydnee Doran on 12-09-2024 Potassium (Unsp spec) [Mass/Vol] 4.0 mmol/L 3.3-5.1 [facility] RBC Auto (Bld) [#/Vol]Ordere d By: Sydnee Doran on 12-09-2024 RBC (Bld) [#/Vol] 4.95 10*6/uL 4.2-5.4 [facility] Serum creatinine measurement (mass/volume)Ordered By: Sydnee Doran on 12-09-2024 Creatinine [Mass/Vol] 0.56 mg/dL Low 0.70-1.20 [facility] Serum glucose measurement (m ass/volume)Ordered By: Sydnee Doran on 12-09-2024 Glucose [Mass/Vol] 345 mg/dL High 70-99 [facility] Serum or plasma calcium sylvia urement (mass/volume)Ordered By: Sydnee Doran on 12-09-2024 Calcium [Mass/Vol] 9.4 mg/dL 7.6-11.0 [facility] Serum or plasma urea nitroge n measurement (mass/volume)Ordered By: Sydnee Doran on 12-09-2024 Urea nitrogen [Mass/Vol] 10 mg/dL 4-19 [facility] Sodium levelOrdered By: Polo Doran on 12-09-2024 Sodium [Moles/Vol] 133 mmol/L 133-145 [facility] White blood cell (WBC) count Ordered By: Sydnee Doran on 12-09-2024 WBC (Bld) [#/Vol] 9.1 10*3/uL 4.4-11.0 [facility] 10-07-2024 [facility] Telephone (AKED) EAMON HUSTON ([id number]) 1960 F Date Time Provider Department 10/07/24 [...] RPh October 07, 2024 12:26 PM Pager/Extension: [phone] Allergies As of Date: 10/07/2024 Noted Allergy Reaction UBFGYFL-SUJ-SEN REDUCTASE INHIBIT*09/28/2021 14 - Other: See Comments [...] Status:Closed by ELLE DONG on 10/07/24 Normal [facility] Urine Cultureon 10-06-2024 [facility] Copy of report sent to Infection Control Printer [id number] 10/06/24 0852 GIL. ESBL Escherichia coli Timewell Count 25,000-50,000 MARKER ESBL producing OrganismA MARKER [...] R Minocycline Islt HERNANDO <=0.5 S Normal [facility] Comment on above: Performed By: #### M 100.8042 ####[facility] [id number] [place], [place], [address] ALLIED HEALTHon 10-03-2024 ALLIED HEALTH HNO ID: [id number] Author: AILYN MONTELONGO RT(R) Service: Radiology Author Type: Shoe Trimmer Type: Allied Health Filed: 10/03/2024 20:33 Note [...] PATIENT PRESENTS WITH AN IMPLANTABLE OR ATTACHED MATTRESS FILLER: No RADIOLOGY DEPARTMENT: CT; Exam(s) Completed: Flank Study PERIPHERAL IV DATA: Not applicable SIGNED BY: RT Amina(R) October 03, 2024 8:33 PM Normal [facility] Bacteria Ur Culton Bacteria identified Cx Nom [...] , Intermediate >32 , Resistant >64 Abnormal [facility] Comment on above: Performed By: #### 6 30-4 #### [facility] CLIA [id number] [address] STATES OF [facility] CBC W Auto Differential pane l (Bld)on 10-03-2024 Basophils (Bld) [#/Vol] 0.04 10*3/uL Normal <0.11 [facility] Comment on above: Order Comment: Speci men Type: BLOOD SPECIMEN Ordering Facility: [facility] Address: [address] [place] [address] Performed By: #### 5 7021-8 #### [facility] CLIA [id number] [address] [place] [address] [place] Basophils/100 WBC (Bld) 0.4 % Normal [facility] Comment on above: Order Comment: Speci men Type: BLOOD SPECIMEN Ordering Facility: [facility] Address: [address] [place] [address] Performed By: #### 5 7021-8 #### [facility] CLIA [id number] [address] [place] [address] OF [facility] Differential cell count method Nom (Bld) Auto Normal [facility] Comment on above: Order Comment: Speci men Type: BLOOD SPECIMEN Ordering Facility: [facility] Address: [address] [place] [address] Performed By: #### 5 7021-8 #### [facility] CLIA [id number] [address] [place] [address] [place] Eosinophils (Bld) [#/Vol] 10*3/uL Normal <0.46 [facility] Comment on above: Order Comment: Speci men Type: BLOOD SPECIMEN Ordering Facility: [facility] Address: [address] [place] [address] Performed By: #### 5 7021-8 #### [facility] CLIA [id number] [address] [place] Eosinophils/100 WBC (Bld) 0.1 % Normal [facility] Comment on above: Order Comment: Speci men Type: BLOOD SPECIMEN Ordering Facility: [facility] Address: [address] [place] [address] Performed By: #### 5 7021-8 #### [facility] CLIA [id number] [address] [place] [address] [place] Erythrocyte distribution width (RBC) [Ratio] 13.5 % Normal 11.5-15.0 [facility] Comment on above: Order Comment: Speci men Type: BLOOD SPECIMEN Ordering Facility: [facility] Address: [address] [place] [address] Performed By: #### 5 7021-8 #### [facility] CLIA [id number] [address] [place] [address] [place] Hematocrit (Bld) [Volume fraction] 44.7 % Normal 36.0-46.0 [facility] Comment on above: Order Comment: Speci men Type: BLOOD SPECIMEN Ordering Facility: [facility] Address: [address] [place] [address] Performed By: #### 5 7021-8 #### [facility] CLIA [id number] [address] [place] [address] [place] Hemoglobin (Bld) [Mass/Vol] 14.5 g/dL Normal 11.5-15.5 [facility] Comment on above: Order Comment: Speci men Type: BLOOD SPECIMEN Ordering Facility: [facility] Address: [address] [place] [address] Performed By: #### 5 7021-8 #### [facility] CLIA [id number] [address] [place] [address] [place] Immature granulocytes (Bld) [#/Vol] 0.05 10*3/uL Normal <0.10 [facility] Comment on above: Order Comment: Speci men Type: BLOOD SPECIMEN Ordering Facility: [facility] Address: [address] [place] [address] Performed By: #### 5 7021-8 #### [facility] CLIA [id number] [address] [place], [place] [address] [place] [address] [place] Immature granulocytes/100 WBC (Bld) 0.4 % Normal [facility] Comment on above: Order Comment: Speci men Type: BLOOD SPECIMEN Ordering Facility: [facility] Address: [address] [place] [address] Performed By: #### 5 7021-8 #### [facility] CLIA [id number] [address] [place] [address] [place] Lymphocytes (Bld) [#/Vol] 1.17 10*3/uL Normal 1.00-4.00 [facility] Comment on above: Order Comment: Speci men Type: BLOOD SPECIMEN Ordering Facility: [facility] Address: [address] [place] [address] Performed By: #### 5 7021-8 #### [facility] CLIA [id number] [address] OF [place] Lymphocytes/100 WBC (Bld) 10.5 % Normal [facility] Comment on above: Order Comment: Speci men Type: BLOOD SPECIMEN Ordering Facility: [facility] Address: [address] [place] [address] Performed By: #### 5 7021-8 #### [facility] CLIA [id number] [address] [place] [address] [place] MCH (RBC) [Entitic mass] 30.3 pg Normal 26.0-34.0 [facility] Comment on above: Order Comment: Speci men Type: BLOOD SPECIMEN Ordering Facility: [facility] Address: [address] [place] [address] Performed By: #### 5 7021-8 #### [facility] CLIA [id number] [address] [place] MCHC (RBC) [Mass/Vol] 32.4 g/dL Normal 30.5-36.0 [facility] Comment on above: Order Comment: Speci men Type: BLOOD SPECIMEN Ordering Facility: [facility] Address: [address] [place] [address] Performed By: #### 5 7021-8 #### [facility] CLIA [id number] [address] OF [facility] MCV (RBC) [Entitic vol] 93.5 fL Normal 80.0-100.0 A [facility] Comment on above: Order Comment: Speci men Type: BLOOD SPECIMEN Ordering Facility: [facility] Address: [address] [place] [address] Performed By: #### 5 7021-8 #### [facility] CLIA [id number] [address] OF [place] Monocytes (Bld) [#/Vol] 1.02 10*3/uL High <0.87 [facility] Comment on above: Order Comment: Speci men Type: BLOOD SPECIMEN Ordering Facility: [facility] Address: [address] [place] [address] Performed By: #### 5 7021-8 #### [facility] CLIA [id number] [address] [place] Monocytes/100 WBC (Bld) 9.1 % Normal A [facility] Comment on above: Order Comment: Speci men Type: BLOOD SPECIMEN Ordering Facility: [facility] Address: [address] [place] [address] Performed By: #### 5 7021-8 #### [facility] CLIA [id number] [address] [place] [address] [place] Neutrophils (Bld) [#/Vol] 8.90 10*3/uL High 1.45-7.50 [facility] Comment on above: Order Comment: Speci men Type: BLOOD SPECIMEN Ordering Facility: [facility] Address: [address] [place] [address] Performed By: #### 5 7021-8 #### [facility] CLIA [id number] [address] [place] [address] [place] Neutrophils/100 WBC (Bld) 79.5 % Normal [facility] Comment on above: Order Comment: Speci men Type: BLOOD SPECIMEN Ordering Facility: [facility] Address: [address] [place] [address] Performed By: #### 5 7021-8 #### [facility] CLIA [id number] [address] [place] [address] [place] Nucleated RBC (Bld) [#/Vol] Normal [facility] Comment on above: Order Comment: Speci men Type: BLOOD SPECIMEN Ordering Facility: [facility] Address: [address] [place] [address] Performed By: #### 5 7021-8 #### [facility] CLIA [id number] [address] [place] [address] [place] Nucleated RBC/100 WBC (Bld) [Ratio] Normal [facility] Comment on above: Order Comment: Speci men Type: BLOOD SPECIMEN Ordering Facility: [facility] Address: [address] [place] [address] Performed By: #### 5 7021-8 #### [facility] CLIA [id number] [address] [place] [address] [place] Platelet mean volume (Bld) [Entitic vol] 11.9 fL Normal 9.0-12.7 [facility] Comment on above: Order Comment: Speci men Type: BLOOD SPECIMEN Ordering Facility: [facility] Address: [address] [place] [address] Performed By: #### 5 7021-8 #### [facility] CLIA [id number] [address] [place] [address] [facility] Platelets (Bld) [#/Vol] 215 10*3/uL Normal 150-400 [facility] Comment on above: Order Comment: Speci men Type: BLOOD SPECIMEN Ordering Facility: [facility] Address: [address] [place] [address] Performed By: #### 5 7021-8 #### [facility] CLIA [id number] [address] OF [facility] RBC (Bld) [#/Vol] 4.78 10*6/uL Normal 3.90-5.20 [facility] Comment on above: Order Comment: Speci men Type: BLOOD SPECIMEN Ordering Facility: [facility] Address: [address] [place] [address] Performed By: #### 5 7021-8 #### [facility] CLIA [id number] [address] [place] [address] WBC (Bld) [#/Vol] 11.19 10*3/uL High 3.70-11.00 [facility] Comment on above: Order Comment: Speci men Type: BLOOD SPECIMEN Ordering Facility: [facility] Address: [address] [place] [address] Performed By: #### 5 7021-8 #### [facility] CLIA [id number] [address] OF [place] CT ABD/PEL WO IVCONon 2024 CT ABD/PEL WO IVCON * * *Final Report* * * DATE OF EXAM: Oct 03 2024 8:11PM [facility] 0531 - CT ABD/PEL WO [...] Diverticulosis. 5. 1.4 cm left adrenal nodule. Special Order Jeweler: PSCB Transcribe Date/Time: Oct 03 2024 8:19P Dictated by : ANTELMO GABRIEL MD This examination was interpreted and the report reviewed and electronically signed by: ANTELMO GABRIEL MD on Oct 03 2024 8:25PM EST [id number] Normal [facility] Comprehensive metabolic 2000 panelon 10-03-2024 Albumin [Mass/Vol] 3.8 g/dL Low 3.9-4.9 [facility] Comment on above: Order Comment: Speci men Type: BLOOD SPECIMEN Ordering Facility: [facility] Address: [address] [place] [address] Performed By: #### 3 040-3, , #### [facility] CLIA [id number] [address] [place] [address] [place] ALP [Catalytic activity/Vol] 113 U/L Normal 34-123 [facility] Comment on above: Order Comment: Speci men Type: BLOOD SPECIMEN Ordering Facility: [facility] Address: [address] [place] [address] Performed By: #### 3 040-3, , #### [facility] CLIA [id number] [address] [place] [address] [place] ALT With P-5'-P [Catalytic activity/Vol] 24 U/L Normal 7-38 [facility] Comment on above: Order Comment: Speci men Type: BLOOD SPECIMEN Ordering Facility: [facility] Address: [address] [place] [address] Performed By: #### 3 040-3, , #### [facility] CLIA [id number] [address] [place] [address] [place] Anion gap [Moles/Vol] 17 mmol/L High 8-15 [facility] Comment on above: Order Comment: Speci men Type: BLOOD SPECIMEN Ordering Facility: [facility] Address: [address] [place] [address] Performed By: #### 3 040-3, , #### [facility] CLIA [id number] [address] [place] [address] [place] AST With P-5'-P [Catalytic activity/Vol] 37 U/L High 13-35 [facility] Comment on above: Order Comment: Speci men Type: BLOOD SPECIMEN Ordering Facility: [facility] Address: [address] [place] [address] Performed By: #### 3 040-3, , #### [facility] CLIA [id number] [address] [place] [address] [place] Bilirubin [Mass/Vol] 0.6 mg/dL Normal 0.2-1.3 [facility] Comment on above: Order Comment: Speci men Type: BLOOD SPECIMEN Ordering Facility: [facility] Address: [address] [place] [address] Performed By: #### 3 040-3, , #### [facility] CLIA [id number] [address] [place] [address] [place] Calcium [Mass/Vol] 9.2 mg/dL Normal 8.5-10.2 [facility] Comment on above: Order Comment: Speci men Type: BLOOD SPECIMEN Ordering Facility: [facility] Address: [address] [place] [address] Performed By: #### 3 040-3, , #### [facility] CLIA [id number] [address] [place] [address] [place] Chloride [Moles/Vol] 94 mmol/L Low 98-107 [facility] Comment on above: Order Comment: Speci men Type: BLOOD SPECIMEN Ordering Facility: [facility] Address: [address] [place] [address] Performed By: #### 3 040-3, , #### [facility] CLIA [id number] [address] [place] [address] [place] CO2 [Moles/Vol] 20 mmol/L Low 22-30 [facility] Comment on above: Order Comment: Speci men Type: BLOOD SPECIMEN Ordering Facility: [facility] Address: [address] [place] [address] Performed By: #### 3 040-3, , #### [facility] CLIA [id number] [address] [place] [address] [place] Creatinine [Mass/Vol] 0.60 mg/dL Normal 0.58-0.96 [facility] Comment on above: Order Comment: Stephanie taylor Type: BLOOD SPECIMEN Ordering Facility: [facility] Address: [address] [place] [address] Performed By: #### 3 040-3, , #### [facility] CLIA [id number] [address] [place] [address] [facility] Creatinine and Glomerular filtration rate.predicted panel (S/P/Bld) 102 mL/min/1.73m??? Normal >=60 [facility] Comment on above: Order Comment: [facility] Type: BLOOD SPECIMEN Ordering Facility: [facility] Address: [address] [place] [address] Result Comment: Alanis mated Glomerular Filtration Rate [...] Performed By: #### 3 040-3, , #### [facility] CLIA [id number] [address] [place] [address] [place] Glucose [Mass/Vol] 269 mg/dL High 74-99 [facility] Comment on above: Order Comment: Stephanie brandon Type: BLOOD SPECIMEN Ordering Facility: [facility] Address: [address] [place] [address] Result Comment: The [place] Diabetes Association (ADA) provides guidance for cutoff [...] Standards of Medical Care in Diabetes 2016, [place] [employer] Association. Diabetes Care. 2016.39(Suppl 1). Performed By: #### 3 040-3, , #### [facility] CLIA [id number] [address] [place] [address] [place] Potassium [Moles/Vol] 3.9 mmol/L Normal 3.7-5.1 [facility] Comment on above: Order Comment: Stephanie taylor Type: BLOOD SPECIMEN Ordering Facility: [facility] Address: [address] [place] [address] Performed By: #### 3 040-3, , #### [facility] CLIA [id number] [address] [place] [address] [place] Protein [Mass/Vol] 7.0 g/dL Normal 6.3-8.0 [facility] Comment on above: Order Comment: Stephanie taylor Type: BLOOD SPECIMEN Ordering Facility: [facility] Address: [address] [place] [address] Performed By: #### 3 040-3, , #### [facility] CLIA [id number] [address] [place] [address] [place] Sodium [Moles/Vol] 131 mmol/L Low 136-144 [facility] Comment on above: Order Comment: Evai brandon Type: BLOOD SPECIMEN Ordering Facility: [facility] Address: [address] [place] [address] Performed By: #### 3 040-3, , #### [facility] CLIA [id number] [address] [place] [address] [place] Urea nitrogen [Mass/Vol] 16 mg/dL Normal 7-21 [facility] Comment on above: Order Comment: Evai men Type: BLOOD SPECIMEN Ordering Facility: [facility] Address: [facility] [place] [address] Performed By: #### 3 040-3, 51005-4, 60967-8 #### [facility] CLIA [id number] [address] [place], [place] [address] [place] ECG COMPLETEon 10-03-2024 ECG COMPLETE Ventricular Rate : 93 BPM Atrial Rate : 93 BPM P-R Interval : 118 ms QRS Duration : 124 ms Q-T Interval : 424 ms QTC Calculation(Bazett) : 527 ms Calculated P Burton : 68 degrees Calculated R Burton : -74 degrees Calculated T Burton : 111 degrees Atrial-sensed ventricular-paced rhythm ABNORMAL ECG NO PREVIOUS ECGS AVAILABLE Confirmed by MD GOODWIN VINAYAK ([id number]) on 10/04/2024 11:59:45 PM NAME : EAMON HUSTON PID : [id number] : 1960 Gender : Female Race : ORD : [id number] Procedure Date : Oct 03 2024 18:12:37 Edit Date : Oct 04 2024 23:59:45 Diagnosis: Atrial-sensed ventricular-paced rhythm ABNORMAL ECG NO PREVIOUS ECGS AVAILABLE Confirmed by MD GOODWIN VINAYAK ([id number]) on 10/04/2024 11:59:45 PM Test Reason : Chest Pain Location : 191 : [facility] ED Overread By : MD GOODWIN VINAYAK Edited By : MD GOODWIN VINAYAK Referred By : , Acquired by : SANJAY SEAY [facility] ED NOTEon 10-03-2024 ED NOTE HNO ID: [id number] Author: JOSLYN NGO, RN Service: Emergency Medicine [...] and oriented, ambulates to room 10. Normal [facility] ED PROV NOTEon 10-03-2024 ED PROV NOTE HNO ID: [id number] Author: FARRAH WELDON MD Service: Emergency Medicine [...] chills. History provided by: Patient and spouse diplomatic interpreter/translator used: No PAST MEDICAL HISTORY Diagnosis Date [...] activity: Not on file ALLERGIES Allergen Reactions Udxznxv-[id number] Red* Other: See Comments Review of Systems [...] (*) 16 (more content not included)... Normal [facility] Laboratory - Chemistry and C hemistry - challengeon 10-03-2024 Bilirubin Ql (U) Negative [facility] Glucose Ql (U) 500 g/dL [facility] Ketones Ql (U) Small (15+) [facility] pH (U) 6.0 [pH] [facility] Specific gravity (U) [Rel density] 1.020 [facility] Urobilinogen (U) [Mass/Vol] 0.2946887 mg/dL [facility] Laboratory - Hematology and Cell countson 10-03-2024 HbA1c (Bld) [Mass fraction] 11.8 % High 4.2-6.3 [facility] Hemoglobin Ql (U) Moderate [facility] Laboratory - Specimen inform ationon 10-03-2024 Clarity (U) Cloudy [facility] Color (U) YELLOW [facility] Laboratory - Urinalysison Nitrite Ql (U) Negative [facility] Protein Ql (U) Negative [facility] Lipase SerPl-cCncon 10-03-19 25 Lipase [Catalytic activity/Vol] 15 U/L Low 16-61 [facility] Comment on above: Order Comment: Speci men Type: BLOOD SPECIMEN Ordering Facility: [facility] Address: [address] [place] [address] Performed By: #### 3 040-3, 49515-3, 01066-9 #### [facility] CLIA [id number] [address] [place] [address] [place] Magnesium SerPl-mCncon 10-03 Magnesium [Mass/Vol] 2.1 mg/dL Normal 1.7-2.3 [facility] Comment on above: Order Comment: Speci men Type: BLOOD SPECIMENOrdering Facility: [facility] Address: [address] [place] [address] Performed By: #### 3 040-3, 80998-4, 56005-9 ####[facility] [id number] [place] [address] [facility] No Panel Informationon 10-03 Urine Leukocytes Negatve [facility] Urine Non-Hemolyzed Blood [facility] SEPSIS LACTATE W/ REFLEX (IN ITIAL)on 10-03-2024 Lactate [Moles/Vol] 1.3 mmol/L Normal <=2.0 [facility] Comment on above: Order Comment: Speci men Type: BLOOD SPECIMENOrdering Facility: [facility] Address: [address] [place] [address] Performed By: #### S LACTR ####[facility] LABCL[facility] [id number] [place] [address] [facility] Urinalysis complete panel (U )on 10-03-2024 Bacteria LM.HPF (Urine sed) [#/Area] Few Abnormal None Seen [facility] Comment on above: Order Comment: Speci men Type: URINE SPECIMEN Ordering Facility: [facility] Address: [address] [place] [address] Performed By: #### 2 4356-8 #### [facility] CLIA [id number] [address] Bilirubin Ql (U) 1+ Abnormal Negative [facility] Comment on above: Order Comment: Speci men Type: URINE SPECIMEN Ordering Facility: [facility] Address: [address] [place] [address] Result Comment: Sugg est correlation with clinical findings and serum bilirubin if clinically indicated. Performed By: #### 2 4356-8 #### [facility] CLIA [id number] [address] [place] [address] [facility] Clarity (Unsp spec) Slightly Cloudy Abnormal Clear [facility] Comment on above: Order Comment: Speci men Type: URINE SPECIMEN Ordering Facility: [facility] Address: [address] [place] [address] Performed By: #### 2 4356-8 #### [facility] CLIA [id number] [address] [place] [address] [facility] Color (U) Yellow Normal Yellow [facility] Comment on above: Order Comment: Speci men Type: URINE SPECIMEN Ordering Facility: [facility] Address: [address] [place] [address] Performed By: #### 2 4356-8 #### [facility] CLIA [id number] [address] [place] [address] [facility] Epithelial cells LM.HPF (Urine sed) [#/Area] Few Normal [facility] Comment on above: Order Comment: Speci men Type: URINE SPECIMEN Ordering Facility: [facility] Address: [address] [place] [address] Performed By: #### 2 4356-8 #### [facility] CLIA [id number] [address] [place] [address] [facility] [place] Glucose Test strip (U) [Mass/Vol] 2+ Abnormal Negative [facility] Comment on above: Order Comment: Speci men Type: URINE SPECIMEN Ordering Facility: [facility] Address: [address] [place] [address] Performed By: #### 2 4356-8 #### [facility] CLIA [id number] [address] [place] [address] [facility] [place] Hemoglobin Ql (U) 2+ Abnormal Negative [facility] Comment on above: Order Comment: Speci men Type: URINE SPECIMEN Ordering Facility: [facility] Address: [address] [place] [address] Performed By: #### 2 4356-8 #### [facility] CLIA [id number] [address] [place] [address] [facility] Ketones Ql (U) 2+ Abnormal Negative [facility] Comment on above: Order Comment: Speci men Type: URINE SPECIMEN Ordering Facility: [facility] Address: [address] [place] [address] Performed By: #### 2 4356-8 #### [facility] CLIA [id number] [address] [place] [address] [place] Leukocyte esterase Test strip Ql (U) Negative Normal Negative [facility] Comment on above: Order Comment: Speci men Type: URINE SPECIMEN Ordering Facility: [facility] Address: [address] [place] [address] Performed By: #### 2 4356-8 #### [facility] CLIA [id number] [address] [place] [address] [place] Nitrite Ql (U) Negative Normal Negative [facility] Comment on above: Order Comment: Speci men Type: URINE SPECIMEN Ordering Facility: [facility] Address: [address] [place] [address] Performed By: #### 2 4356-8 #### [facility] CLIA [id number] [address] [place] [address] [place] pH (U) 5.5 [pH] Normal 5.0-8.0 [facility] Comment on above: Order Comment: Speci men Type: URINE SPECIMEN Ordering Facility: [facility] Address: [address] [place] [address] Performed By: #### 2 4356-8 #### [facility] CLIA [id number] [address] [place] [address] [place] Protein (U) [Mass/Vol] Negative Normal Negative [facility] Comment on above: Order Comment: Speci men Type: URINE SPECIMEN Ordering Facility: [facility] Address: [address] [place] [address] Performed By: #### 2 4356-8 #### [facility] CLIA [id number] [address] [place] [id number] [facility] [place] RBC LM.HPF (Urine sed) [#/Area] 11-25 /HPF Abnormal 0-3 /HPF [facility] Comment on above: Order Comment: Speci men Type: URINE SPECIMEN Ordering Facility: [facility] Address: [address] [place] [address] Performed By: #### 2 4356-8 #### [facility] CLIA [id number] [address] [place] [address] [place] Specific gravity (U) [Rel density] 1.015 Normal 1.005-1.030 [facility] Comment on above: Order Comment: Speci men Type: URINE SPECIMEN Ordering Facility: [facility] Address: [address] [place] [address] Performed By: #### 2 4356-8 #### [facility] CLIA [id number] [address] [place] [id number] [facility] Urobilinogen Ql (U) 0.2 EU/dL Normal 0.2-1.0 EU/dL [facility] Comment on above: Order Comment: Speci men Type: URINE SPECIMEN Ordering Facility: [facility] Address: [address] [place] [address] Performed By: #### 2 4356-8 #### [facility] CLIA [id number] [address] [place] [address] [place] WBC LM.HPF (Urine sed) [#/Area] 6-10 /HPF Abnormal 0-5 /HPF [facility] Comment on above: Order Comment: Speci men Type: URINE SPECIMEN Ordering Facility: [facility] Address: [address] [place] [address] Performed By: #### 2 4356-8 #### [facility] CLIA [id number] [address] [place], [place] [id number] [facility] [place] Urine cultureOrdered By: Jamie Garcia on 10-03-2024 Bacteria identified Cx Nom (U) ESBL Escherichia coli Abnormal [facility] XR FOOT 3V AP/LAT/OBL LTon 0 [...] of the foot. No acute osseous abnormality. Special Order Jeweler: PSCB Transcribe Date/Time: Dec 26 2023 7:43P Dictated by : YAHAIRA LEE MD This examination was interpreted and the report reviewed and electronically signed by: YAHAIRA LEE MD on Dec 26 2023 7:45PM EST [id number] Normal [facility] Absolute lymphocyte countOrd ered By: Naima Garcia on 12-21-2023 Lymphocytes Auto (Unsp spec) [#/Vol] 3.20 10*3/uL 0.83-4.51 [facility] Automated lymphocyte count a s percentage of total leukocytesOrdered By: Naima Garcia on 12-21-2023 Lymphocytes/100 WBC Auto (Unsp spec) 36.7 % 19-41 [facility] Basophil percentageOrdered B y: Naima Garcia on 12-21-2023 Basophils/100 WBC (Bld) 0.9 % 0-1 [facility] Bilirubin [Mass/Vol] 0.50 mg/dL 0.20-1.00 [facility] Comment on above: For patients on eltr ombopag therapy, use of Dimension [place] TBIL is not recommended. Chloride [Moles/Vol] 105 mmol/L 98-107 [facility] Cholesterol [Mass/Vol] 268 mg/dL <200 [facility] Comment on above: <200 mg/dL Desirable 200-240 mg/dL Borderline >240 mg/dL High Risk Eosinophils/100 WBC (Bld) 1.0 % 0-5 [facility] Glucose [Mass/Vol] 128 mg/dL 74-106 [facility] Comment on above: Fasting Glucose resu lt greater than or equal to 126 mg/dL suggests DIABETES MELLITUS per A.D.A. criteria. Hemoglobin (Bld) [Mass/Vol] 15.2 g/dL 12.0-15.0 [facility] Monocytes/100 WBC (Bld) 10.6 % 0-10 [facility] Neutrophils (Bld) [#/Vol] 4.4 10*3/uL 2.0-7.7 [facility] Neutrophils/100 WBC (Bld) 50.6 % 47-70 [facility] Potassium [Moles/Vol] 4.1 mmol/L 3.5-5.1 [facility] Protein [Mass/Vol] 7.5 g/dL 6.4-8.2 [facility] Sodium [Moles/Vol] 137 mmol/L 136-145 [facility] Triglyceride [Mass/Vol] 348 mg/dL <199 [facility] Comment on above: The drugs N-Acetylcy steine and Metamizole may falsely depress this assay.Serum Triglycerides Reference Interval Normal <150 mg/dL Borderline high 150 - 199 mg/dL High 200 - 499 mg/dL Very High > or = 500 mg/dL WBC (Bld) [#/Vol] 8.7 10*3/uL 4.4-11.0 [facility] Determination of erythrocyte mean corpuscular volume (MCV)Ordered By: Naima Garcia on 12-21-2023 MCV (RBC) [Entitic vol] 94.4 fL 81-99 [facility] Erythrocyte distribution wid th ratioOrdered By: Naima Garcia on 12-21-2023 Erythrocyte distribution width (RBC) [Ratio] 13.3 % 11.6-14.6 [facility] Erythrocyte distribution wid th standard deviationOrdered By: Naima Garcia on 12-21-2023 Erythrocyte distribution width (RBC) [Entitic vol] 46.3 fL 35.1-43.9 [facility] Hematocrit Auto (Bld) [Volum e fraction]Ordered By: Naima Garcia on 12-21-2023 Hematocrit (Bld) [Volume fraction] 47.3 % 37-47 [facility] Immature granulocytes/100 WB C Auto (Bld)Ordered By: Naima Garcia on 12-21-2023 Immature granulocytes/100 WBC (Bld) 0.200 % 0.0-0.9 [facility] Comment on above: IG% - Immature Granu locytes (promyelocytes, myelocytes and metamyelocytes) > 1% indicates that a LEFT SHIFT is Present. Laboratory - Chemistry and C hemistry - challengeOrdered By: Naima Garcia on 12-21-2023 Albumin/Globulin [Mass ratio] 1.0 {ratio} 0.9-2.4 [facility] ALP [Catalytic activity/Vol] 105 U/L 45-117 [facility] ALT [Catalytic activity/Vol] 24 U/L 13-56 [facility] Cholesterol in HDL [Mass/Vol] 34 mg/dL >40 [facility] Comment on above: The drugs N-Acetylcy steine and Metamizole may falsely depress this assay. Reference Range HDL <40 mg/dL Low HDL Cholesterol HDL >or= 60 mg/dL High HDL Cholesterol Cholesterol in LDL [Mass/Vol] 164 mg/dL 0-130 [facility] CO2 [Moles/Vol] 24.0 mmol/L 21.0-32.0 [facility] Globulin (S) [Mass/Vol] 3.7 g/dL 2.2-4.2 [facility] Urea nitrogen/Creatinine [Mass ratio] 20.8 mg/mg 10-20 [facility] Laboratory - Hematology and Cell countsOrdered By: Naima Garcia on 12-21-2023 MCH (RBC) [Entitic mass] 30.3 pg 27.0-32.0 [facility] MCHC (RBC) [Mass/Vol] 32.1 g/dL 32-36 [facility] Nucleated RBC/100 WBC (Bld) [Ratio] 0 % 0-5 [facility] Platelet mean volume (Bld) [Entitic vol] 12.9 fL 6.2-12.0 [facility] Platelets (Bld) [#/Vol] 226 10*3/uL 150-450 [facility] Laboratory - Hematology and Cell countson 12-21-2023 HbA1c (Bld) [Mass fraction] 6.8 % 4.2-6.3 [facility] No Panel InformationOrdered By: Naima Garcia on 12-21-2023 Estimated GFR (MDRD) Amer 106 mL/min >60 [facility] Comment on above: GFR Calc Estimated GFR (MDRD) Non-Af Amer 87 mL/min >60 [facility] Comment on above: Non- GFR Calc VLDL Cholesterol 70 mg/dL 5-40 [facility] RBC Auto (Bld) [#/Vol]Ordere d By: Naima Garcia on 12-21-2023 RBC (Bld) [#/Vol] 5.01 10*6/uL 4.2-5.4 [facility] Serum or plasma calcium sylvia urement (mass/volume)Ordered By: Naima Garcia on 12-21-2023 Calcium [Mass/Vol] 9.2 mg/dL 8.5-10.1 [facility] Serum or plasma creatinine m easurement (mass/volume)Ordered By: Naima Garcia on 12-21-2023 Creatinine [Mass/Vol] 0.72 mg/dL 0.55-1.02 [facility] Comment on above: The validity of the calculated GFR & GFRAA in patients over 70 years has not been determined. Clinical correlation is essential. Serum or plasma thyroid stim ulating hormone (TSH) measurement (units/volume)Ordered By: Naima Garcia on 12-21-2023 TSH Qn 1.15 uIU/mL 0.358-3.74 [facility] Serum or plasma urea nitroge n measurement (mass/volume)Ordered By: Naima Garcia on 12-21-2023 Urea nitrogen [Mass/Vol] 15 mg/dL 7-18 [facility] Thin prep Papanicolaou smear with manual screeningOrdered By: Naima Garcia on 12-21-2023 Thin prep Papanicolaou smear with manual screening 3.8 g/dL 3.2-5.0 [facility] Thin prep Papanicolaou smear with manual screening 14 U/L 15-37 [facility] Thin prep Papanicolaou smear with manual screening 8 5-15 [facility] Absolute lymphocyte countOrd ered By: Naima Garcia on 12-21-2022 Lymphocytes Auto (Unsp spec) [#/Vol] 3.87 10*3/uL 0.83-4.51 [facility] Basophil percentageOrdered B y: Naima Garcia on 12-21-2022 Basophils/100 WBC (Bld) 1.0 % 0-1 [facility] Bilirubin [Mass/Vol] 0.30 mg/dL 0.20-1.00 [facility] Comment on above: For patients on eltr ombopag therapy, use of Dimension [place] TBIL is not recommended. Chloride [Moles/Vol] 100 mmol/L 98-107 [facility] Cholesterol [Mass/Vol] 306 mg/dL <200 [facility] Comment on above: <200 mg/dL Desirable 200-240 mg/dL Borderline >240 mg/dL High Risk Eosinophils/100 WBC (Bld) 1.3 % 0-5 [facility] Glucose [Mass/Vol] 205 mg/dL 74-106 [facility] Comment on above: Glucose result great er than or equal to 200 mg/dLsuggests DIABETES MELLITUS per A.D.A. criteria. Neutrophils (Bld) [#/Vol] 3.8 10*3/uL 2.0-7.7 [facility] Neutrophils/100 WBC (Bld) 43.8 % 47-70 [facility] Potassium [Moles/Vol] 4.1 mmol/L 3.5-5.1 [facility] Protein [Mass/Vol] 7.8 g/dL 6.4-8.2 [facility] Sodium [Moles/Vol] 133 mmol/L 136-145 [facility] Triglyceride [Mass/Vol] 648 mg/dL <199 [facility] Comment on above: The drugs N-Acetylcy steine and Metamizole may falsely depress this assay. TRIGLYCERIDE IS GREATER THAN 400 mg/dL. LDL RESULT IS INVALID AND WILL NOT BE REPORTED.Serum Triglycerides Reference Interval Normal <150 mg/dL Borderline high 150 - 199 mg/dL High 200 - 499 mg/dL Very High > or = 500 mg/dL WBC (Bld) [#/Vol] 8.7 10*3/uL 4.4-11.0 [facility] Blood erythrocytes count (nu mber/volume)Ordered By: Naima Garcia on 12-21-2022 RBC (Bld) [#/Vol] 5.21 10*6/uL 4.2-5.4 [facility] Blood hemoglobin measurement (mass/volume)Ordered By: Naima Garcia on 12-21-2022 Hemoglobin (Bld) [Mass/Vol] 16.0 g/dL 12.0-15.0 [facility] Blood lymphocytes/100 leukoc ytesOrdered By: Naima Garcia on 12-21-2022 Lymphocytes/100 WBC (Bld) 44.4 % 19-41 [facility] Blood monocytes/100 leukocyt esOrdered By: Naima Garcia on 12-21-2022 Monocytes/100 WBC (Bld) 9.2 % 0-10 [facility] Blood platelet mean volumeOr dered By: Naima Garcia on 12-21-2022 Platelet mean volume (Bld) [Entitic vol] 12.7 fL 6.2-12.0 [facility] Determination of erythrocyte mean corpuscular volume (MCV)Ordered By: Naima Garcia on 12-21-2022 MCV (RBC) [Entitic vol] 92.3 fL 81-99 [facility] Hematocrit Auto (Bld) [Volum e fraction]Ordered By: Naima Garcia on 12-21-2022 Hematocrit (Bld) [Volume fraction] 48.1 % 37-47 [facility] Laboratory - Chemistry and C hemistry - challengeOrdered By: Naima Garcia on 12-21-2022 ALP [Catalytic activity/Vol] 116 U/L 45-117 [facility] ALT [Catalytic activity/Vol] 36 U/L 13-56 [facility] CO2 [Moles/Vol] 26.0 mmol/L 21.0-32.0 [facility] Globulin (S) [Mass/Vol] 3.8 g/dL 2.2-4.2 [facility] Urea nitrogen/Creatinine [Mass ratio] 23.4 mg/mg 10-20 [facility] Laboratory - Hematology and Cell countsOrdered By: Naima Garcia on 12-21-2022 Erythrocyte distribution width (RBC) [Entitic vol] 44.4 fL 35.1-43.9 [facility] Erythrocyte distribution width (RBC) [Ratio] 13.1 % 11.6-14.6 [facility] Immature granulocytes/100 WBC (Bld) 0.300 % 0.0-0.9 [facility] Comment on above: IG% - Immature Granu locytes (promyelocytes, myelocytes and metamyelocytes) > 1% indicates that a LEFT SHIFT is Present. MCH (RBC) [Entitic mass] 30.7 pg 27.0-32.0 [facility] Nucleated RBC/100 WBC (Bld) [Ratio] 0 % 0-5 [facility] MCHC Auto (RBC) [Mass/Vol]Or dered By: Naima Garcia on 12-21-2022 MCHC (RBC) [Mass/Vol] 33.3 g/dL 32-36 [facility] No Panel InformationOrdered By: Naima Garcia on 12-21-2022 Estimated GFR (MDRD) Amer 121 mL/min >60 [facility] Comment on above: GFR Calc Estimated GFR (MDRD) Non-Af Amer 100 mL/min >60 [facility] Comment on above: Non- GFR Calc Platelets bldOrdered By: Jamie Garcia on 12-21-2022 Platelets (Bld) [#/Vol] 231 10*3/uL 150-450 [facility] Serum or plasma albumin sylvia urement (mass/volume)Ordered By: Naima Garcia on 12-21-2022 Albumin [Mass/Vol] 4.0 g/dL 3.2-5.0 [facility] Serum or plasma albumin/glob ulin mass ratioOrdered By: Naima Garcia on 12-21-2022 Albumin/Globulin [Mass ratio] 1.1 {ratio} 0.9-2.4 [facility] Serum or plasma calcium sylvia urement (mass/volume)Ordered By: Naima Garcia on 12-21-2022 Calcium [Mass/Vol] 9.3 mg/dL 8.5-10.1 [facility] Serum or plasma cholesterol in HDL measurement (mass/volume)Ordered By: Naima Garcia on 12-21-2022 Cholesterol in HDL [Mass/Vol] 30 mg/dL >40 [facility] Comment on above: The drugs N-Acetylcy steine and Metamizole may falsely depress this assay. Reference Range HDL <40 mg/dL Low HDL Cholesterol HDL >or= 60 mg/dL High HDL Cholesterol Serum or plasma cholesterol in VLDL measurement (mass/volume)Ordered By: Naima Garcia on 12-21-2022 Cholesterol in VLDL [Mass/Vol] TNP [facility] Comment on above: Test not performed Serum or plasma creatinine m easurement (mass/volume)Ordered By: Naima Garcia on 12-21-2022 Creatinine [Mass/Vol] 0.64 mg/dL 0.55-1.02 [facility] Comment on above: The validity of the calculated GFR & GFRAA in patients over 70 years has not been determined. Clinical correlation is essential. Serum or plasma low density lipoprotein (LDL) cholesterol measurement (mass/volume)Ordered By: Naima Garcia on 12-21-2022 Cholesterol in LDL [Mass/Vol] TNP [facility] Comment on above: Test not performed Serum or plasma urea nitroge n measurement (mass/volume)Ordered By: Naima Garcia on 12-21-2022 Urea nitrogen [Mass/Vol] 15 mg/dL 7-18 [facility] Thin prep Papanicolaou smear with manual screeningOrdered By: Naima Garcia on 12-21-2022 Thin prep Papanicolaou smear with manual screening 23 U/L 15-37 [facility] Thin prep Papanicolaou smear with manual screening 7 5-15 [facility] Whole blood hemoglobin A1c/t otal hemoglobin ratio (mass fraction)Ordered By: Naima Garcia on 12-21-2022 HbA1c (Bld) [Mass fraction] 10.8 % 3.8-5.6 [facility] Comment on above: Normal < 5.7 % Predi abetic 5.7 - 6.4 % Diabetic >or= 6.5 % Please note range changes. Absolute lymphocyte counton 12-14-2021 Lymphocytes Auto (Unsp spec) [#/Vol] 3.60 10*3/uL 0.83-4.51 [facility] Work Phone: Basophil percentageon 2021 Basophils/100 WBC (Bld) 0.8 % 0-1 [facility] Work Phone: Bilirubin [Mass/Vol] 0.30 mg/dL 0.20-1.00 [facility] Work Phone: Comment on above: For patients on eltr ombopag therapy, use of Dimension [place] TBIL is not recommended. Chloride [Moles/Vol] 102 mmol/L 98-107 [facility] Work Phone: Cholesterol [Mass/Vol] 302 mg/dL <200 [facility] Work Phone: Comment on above: <200 mg/dL Desirable 200-240 mg/dL Borderline >240 mg/dL High Risk Eosinophils/100 WBC (Bld) 1.1 % 0-5 [facility] Work Phone: Glucose [Mass/Vol] 244 mg/dL 74-106 [facility] Work Phone: Comment on above: Glucose result great er than or equal to 200 mg/dLsuggests DIABETES MELLITUS per A.D.A. criteria. Neutrophils (Bld) [#/Vol] 4.6 10*3/uL 2.0-7.7 [facility] Work Phone: Neutrophils/100 WBC (Bld) 49.4 % 47-70 [facility] Work Phone: Potassium [Moles/Vol] 4.6 mmol/L 3.5-5.1 [facility] Work Phone: Comment on above: Slight Hemolysis, Re sult may be falsely increased. Protein [Mass/Vol] 7.8 g/dL 6.4-8.2 [facility] Work Phone: Sodium [Moles/Vol] 135 mmol/L 136-145 [facility] Work Phone: Triglyceride [Mass/Vol] 749 mg/dL [facility] Work Phone: Comment on above: The drugs N-Acetylcy steine and Metamizole may falsely depress this assay. TRIGLYCERIDE IS GREATER THAN 400 mg/dL. LDL RESULT IS INVALID AND WILL NOT BE REPORTED.Serum Triglycerides Reference Interval Normal <150 mg/dL Borderline high 150 - 199 mg/dL High 200 - 499 mg/dL Very High > or = 500 mg/dL WBC (Bld) [#/Vol] 9.3 10*3/uL 4.4-11.0 [facility] Work Phone: Blood erythrocytes count (nu mber/volume)on 12-14-2021 RBC (Bld) [#/Vol] 5.19 10*6/uL 4.2-5.4 [facility]: Blood hemoglobin measurement (mass/volume)on 12-14-2021 Hemoglobin (Bld) [Mass/Vol] 16.3 g/dL 12.0-15.0 [facility] Work Phone: Blood lymphocytes/100 leukoc yteson 12-14-2021 Lymphocytes/100 WBC (Bld) 38.7 % 19-41 [facility] Work Phone: Blood monocytes/100 leukocyt eson 12-14-2021 Monocytes/100 WBC (Bld) 9.7 % 0-10 [facility] Work Phone: Blood platelet mean volumeon 12-14-2021 Platelet mean volume (Bld) [Entitic vol] 13.1 fL 6.2-12.0 [facility] Work Phone: Determination of erythrocyte mean corpuscular volume (MCV)on 12-14-2021 MCV (RBC) [Entitic vol] 91.5 fL 81-99 [facility] Work Phone: Hematocrit Auto (Bld) [Volum e fraction]on 12-14-2021 Hematocrit (Bld) [Volume fraction] 47.5 % 37-47 [facility] Work Phone: Laboratory - Chemistry and C hemistry - challengeon 12-14-2021 ALP [Catalytic activity/Vol] 80 U/L 45-117 [facility] Work Phone: ALT [Catalytic activity/Vol] 37 U/L 13-56 [facility] Work Phone: CO2 [Moles/Vol] 23.0 mmol/L 21.0-32.0 [facility] Work Phone: Globulin (S) [Mass/Vol] 3.7 g/dL 2.2-4.2 [facility] Work Phone: Urea nitrogen/Creatinine [Mass ratio] 27.1 mg/mg 10-20 [facility] Work Phone: Laboratory - Hematology and Cell countson 12-14-2021 Erythrocyte distribution width (RBC) [Entitic vol] 48.2 fL 35.1-43.9 [facility] Work Phone: Erythrocyte distribution width (RBC) [Ratio] 14.3 % 11.6-14.6 [facility] Work Phone: Immature granulocytes/100 WBC (Bld) 0.300 % 0.0-0.9 [facility] Work Phone: Comment on above: IG% - Immature Granu locytes (promyelocytes, myelocytes and metamyelocytes) > 1% indicates that a LEFT SHIFT is Present. MCH (RBC) [Entitic mass] 31.4 pg 27.0-32.0 [facility] Work Phone: Nucleated RBC/100 WBC (Bld) [Ratio] 0 % 0-5 [facility] Work Phone: HbA1c (Bld) [Mass fraction] 9.2 % [facility] Work Phone: MCHC Auto (RBC) [Mass/Vol]on 12-14-2021 MCHC (RBC) [Mass/Vol] 34.3 g/dL 32-36 [facility] Work Phone: No Panel Informationon 12-14 Digoxin Level 1.21 ng/mL 0.80-2.00 [facility] Work Phone: Estimated GFR (MDRD) Amer 98 mL/min >60 [facility] Work Phone: Comment on above: GFR Calc Estimated GFR (MDRD) Non-Af Amer 81 mL/min >60 [facility] Work Phone: Comment on above: Non- GFR Calc Platelets bldon 12-14-2021 Platelets (Bld) [#/Vol] 245 10*3/uL 150-450 [facility] Work Phone: Serum or plasma albumin sylvia urement (mass/volume)on 12-14-2021 Albumin [Mass/Vol] 4.1 g/dL 3.2-5.0 [facility] Work Phone: Serum or plasma albumin/glob ulin mass ratioon 12-14-2021 Albumin/Globulin [Mass ratio] 1.1 {ratio} 0.9-2.4 [facility] Work Phone: Serum or plasma calcium sylvia urement (mass/volume)on 12-14-2021 Calcium [Mass/Vol] 9.5 mg/dL 8.5-10.1 [facility] Work Phone: Serum or plasma cholesterol in HDL measurement (mass/volume)on 12-14-2021 Cholesterol in HDL [Mass/Vol] 31 mg/dL [facility] Work Phone: Comment on above: The drugs N-Acetylcy steine and Metamizole may falsely depress this assay. Reference Range HDL <40 mg/dL Low HDL Cholesterol HDL >or= 60 mg/dL High HDL Cholesterol Serum or plasma cholesterol in VLDL measurement (mass/volume)on 12-14-2021 Cholesterol in VLDL [Mass/Vol] [facility] Work Phone: Comment on above: Test not performed Serum or plasma creatinine m easurement (mass/volume)on 12-14-2021 Creatinine [Mass/Vol] 0.78 mg/dL 0.55-1.02 [facility] Work Phone: Comment on above: The validity of the calculated GFR & GFRAA in patients over 70 years has not been determined. Clinical correlation is essential. Serum or plasma low density lipoprotein (LDL) cholesterol measurement (mass/volume)on 12-14-2021 Cholesterol in LDL [Mass/Vol] [facility] Work Phone: Comment on above: Test not performed Serum or plasma urea nitroge n measurement (mass/volume)on 12-14-2021 Urea nitrogen [Mass/Vol] 21 mg/dL 7-18 [facility] Work Phone: Thin prep Papanicolaou smear with manual screeningon 12-14-2021 Thin prep Papanicolaou smear with manual screening 17 U/L 15-37 [facility] Work Phone: Comment on above: Slight Hemolysis, Re sult may be falsely increased. Thin prep Papanicolaou smear with manual screening 10 5-15 [facility] Work Phone: CNOVon 09-28-2021 CNOV Office Visit (UCWSTR) EAMON HUSTON ([id number]) 1960 F Date Time Provider Department 09/28/21 5:30 PM NARINDER PARSONS [facility] During your visit today, we recorded the [...] plan; her will drive her over to [facility] at this time. Report sent over via [...] Status:Closed by NARINDER PARSONS on 09/28/[address] [facility] No Panel Informationon 09-28 SARS-CoV-2 Antigen (Rapid) SARS-CoV-2 (COVID 19) [facility] Work Phone: Catheterization and angiogra phy procedure details panelon 08-16-2021 Mannie Haskins MD 08/16/2021 8:44 AM [facility] ICD GENERATOR EXCHANGE NOTE Date: [...] via: N/A Model number: [id number] Serial Number: [id number] Sensin.1 mV Threshold: 0.5 V @ 0.5 ms Impedance: 440 ohms Lead 2 location: RV [place] Implanted via: N/A Model number: [id number] Serial Number: [id number] Sensin mV Threshold: 0.87 V @ 0.5 ms Impedance: 690 ohms Lead 3 location: LV Branch via coronary sinus Implanted via: N/A Model number: [id number] Serial Number: [id number] Sensing: na mV Threshold: 0.62 V @ 0.5 ms Impedance: 860 ohms Pacing configuration: LV3 to LV4 After washing the pocket with gentamycin containing saline, the leads were attached to the new ICD generator. ICD generator model: [id number] Serial number: [id number] The generator was placed in the Left pre-pectoral fascia. CHRONIC generator removed: [id number] The subcutaneous tissue was closed with Vicryl [...] Comments: tyrx used MANNIE HASKINS MD 08/16/2021 [facility] Work Phone: EP NURSE PROCEDURE REPORTon 08-16-2021 [facility] Basic Metabolic Panelon 06-25 Anion gap [Moles/Vol] 9 mmol/L Normal 3-13 [facility] Comment on above: Performed By: #### H RANDY BMP3 #### [facility] [address] [place] [address] Calcium [Mass/Vol] 9.3 mg/dL Normal 8.4-10.4 [facility] Comment on above: Performed By: #### H RANDY BMP3 #### [facility] [address] [place] [address] CO2 [Moles/Vol] 22 mmol/L Normal 22-30 [facility] Comment on above: Performed By: #### H RANDY, BMP3 #### [facility] [address] [place] [address] Glucose [Mass/Vol] 277 mg/dL High 70-100 [facility] Comment on above: Performed By: #### H RANDY, BMP3 #### [facility] [address] [place], [place] Urea nitrogen [Mass/Vol] 14 mg/dL Normal 9-20 [facility] Comment on above: Performed By: #### H RANDY BMP3 #### [facility] [address] [place], [place] Creatinine [Mass/Vol] 0.52 mg/dL Normal 0.52-1.25 [facility] Comment on above: Performed By: #### H RANDY BMP3 #### [facility] [address] [place], [place] eGFR OTHER > 90.0 Normal >60 [facility] Comment on above: Result Comment: KDIG [...] By: #### H RANDY, BMP3 #### [facility] [address] [place], [place] GFR/1.73 sq M.predicted among blacks MDRD (S/P/Bld) [Vol rate/Area] mL/min/{1.73_m2} Normal >60 [facility] Comment on above: Performed By: #### H RANDY BMP3 #### [facility] [address] [place] [address] Potassium [Moles/Vol] 4.7 mmol/L Normal 3.5-5.1 [facility] Comment on above: Performed By: #### H RANDY BMP3 #### [facility] [address] [place] [address] Chloride [Moles/Vol] 102 mmol/L Normal 98-107 [facility] Comment on above: Performed By: #### Tita PADILLA BMP3 #### [place] [address] [place] [address] Sodium [Moles/Vol] 133 mmol/L Low 135-145 [facility] Comment on above: Performed By: #### Tita PADILLA BMP3 #### [place] [address] [place] [address] Hemogramon 07-22-2021 Erythrocyte distribution width (RBC) [Ratio] 13.9 % Normal 11.5-14.5 [facility] Comment on above: Performed By: #### Tita PADILLA BMP3 #### [place] [address] [place] [address] Hematocrit (Bld) [Volume fraction] 47.1 % High 35.0-47.0 [facility] Comment on above: Performed By: #### Tita PADILLA BMP3 #### [facility] [address] [place] [address] Hemoglobin (Bld) [Mass/Vol] 15.4 g/dL Normal 11.7-16.0 [facility] Comment on above: Performed By: #### Tita PADILLA BMP3 #### [facility] [address] [place] [address] MCH (RBC) [Entitic mass] 30.3 pg Normal 26.0-34.0 [facility] Comment on above: Performed By: #### H RANDY BMP3 #### [facility] [address] [place], [place] MCHC 32.7 % Normal 32.0-36.0 [facility] Comment on above: Performed By: #### H EMOG, BMP3 #### [facility] [address] [place], [place] MCV (RBC) [Entitic vol] 92.6 fL Normal 79.0-98.0 [facility] Comment on above: Performed By: #### H EMOG, BMP3 #### [place] [address] [address] [place], [place] Platelet mean volume (Bld) [Entitic vol] 11.4 fL High 7.4-10.4 [facility] Comment on above: Performed By: #### H EMOG, BMP3 #### [place] [address] [place], [place] Platelets (Bld) [#/Vol] 206 10*3/uL Normal 140-440 [facility] Comment on above: Performed By: #### H EMOErik, BMP3 #### [place] [address] [address] [place], [place] RBC (Bld) [#/Vol] 5.09 10*6/uL Normal 3.80-5.20 [facility] Comment on above: Performed By: #### H EMOG, BMP3 #### [place] [address] [place], [place] WBC (Bld) [#/Vol] 7.0 10*3/uL Normal 3.6-10.7 [facility] Comment on above: Performed By: #### H EMOG, BMP3 #### [place] [address] [place], [place] Hemogramon 05-04-2020 Erythrocyte distribution width (RBC) [Ratio] 13.6 % Normal 11.5-15.9 [facility] Comment on above: Performed By: #### L CBC #### [facility] [address] [place], [place] [address] Hematocrit (Bld) [Volume fraction] 45.0 % Normal 37.0-47.0 [facility] Comment on above: Performed By: #### L CBC #### [facility] [address] [place] [address] Hemoglobin (Bld) [Mass/Vol] 14.7 g/dL Normal 12.0-16.0 [facility] Comment on above: Performed By: #### L CBC #### [facility] [address] [place] [address] MCH (RBC) [Entitic mass] 30.6 pg Normal 27.0-31.0 [facility] Comment on above: Performed By: #### L CBC #### [facility] [address] [place] [address] MCHC (RBC) [Mass/Vol] 32.7 % Normal 32.0-36.0 [facility] Comment on above: Performed By: #### L CBC #### [facility] [address] [place] [address] MCV (RBC) [Entitic vol] 93.6 fL Normal 81.0-99.0 [facility] Comment on above: Performed By: #### L CBC #### [facility] [address] [place] [address] Platelet mean volume (Bld) [Entitic vol] 12.6 fL High 7.1-10.5 [facility] Comment on above: Performed By: #### L CBC #### [facility] [address] [place] [address] Platelets (Bld) [#/Vol] 221 thou/cmm Normal 150-400 [facility] Comment on above: Performed By: #### L CBC #### [facility] [address] [place] [address] RBC (Bld) [#/Vol] 4.81 mil/cmm Normal 4.20-5.40 [facility] Comment on above: Performed By: #### L CBC #### [facility] [address] [place] [address] WBC (Bld) [#/Vol] 7.8 thou/cmm Normal 4.8-10.5 [facility] Comment on above: Performed By: #### L CBC #### [facility] [address] [place] [address] Vital Signs Date Time Vital Sign Value Performing Clinician Facility 04-21-2025 17:56-0400 Body temperature 97.9 [degF] Naima Garcia [facility] Work Phone: [facility] 04-21-2025 17:56-0400 Diastolic blood pressure 80 mm[Hg] Naima Garcia [facility] Work Phone: [facility] 04-21-2025 17:56-0400 Heart rate 103 /min Naima Garcia [facility] Work Phone: [facility] 04-21-2025 17:56-0400 Respiratory rate 25 /min Naima Garcia [facility] Work Phone: [facility] 04-21-2025 17:56-0400 SaO2% (BldA) [Mass fraction] 96 % Naima Garcia [facility] Work Phone: [facility] 04-21-2025 17:56-0400 Systolic blood pressure 114 mm[Hg] Naima Garcia [facility] Work Phone: [facility] 04-21-2025 16:00-0400 Inhaled oxygen flow rate 2 L/min Naima Garcia [facility] Work Phone: [facility] 04-21-2025 13:45-0400 Body height 167.64 cm Naima Garcia [facility] Work Phone: [facility] 04-21-2025 13:45-0400 Body mass index (BMI) [Ratio] 33.2 kg/m2 Naima Garcia [facility] Work Phone: [facility] 04-21-2025 13:45-0400 Body weight 93.4 kg Naima Garcia [facility] Work Phone: [facility] 04-13-2025 07:26-0400 Body mass index (BMI) [Ratio] 32.4 kg/m2 Naima Garcia [facility] Work Phone: [facility] 04-13-2025 07:26-0400 Body weight 91.17 kg Naima Garcia [facility] Work Phone: [facility] 04-13-2025 07:26-0400 Diastolic blood pressure 78 mm[Hg] Naima Garcia [facility] Work Phone: [facility] 04-13-2025 07:26-0400 Heart rate 79 /min Naimaaaron Garcia [facility] Work Phone: [facility] 04-13-2025 07:26-0400 Respiratory rate 18 /min Naima Garcia [facility] Work Phone: [facility] 04-13-2025 07:26-0400 SaO2% (BldA) [Mass fraction] 97 % Naima Garcia [facility] Work Phone: [facility] 04-13-2025 07:26-0400 Systolic blood pressure 122 mm[Hg] Naima Garcia [facility] Work Phone: [facility] 04-06-2025 17:54-0400 Body height 167.64 cm Naima Garcia [facility] Work Phone: [facility] 04-06-2025 17:54-0400 Body mass index (BMI) [Ratio] 32.3 kg/m2 Naima Garcia [facility] Work Phone: [facility] 04-06-2025 17:54-0400 Body temperature 97.9 [degF] Naima Garcia [facility] Work Phone: [facility] 04-06-2025 17:54-0400 Body weight 90.71 kg Naima Garcia [facility] Work Phone: [facility] 04-06-2025 17:54-0400 Diastolic blood pressure 60 mm[Hg] Naima Garcia [facility] Work Phone: [facility] 04-06-2025 17:54-0400 Heart rate 63 /min Naima Garcia [facility] Work Phone: [facility] 04-06-2025 17:54-0400 Respiratory rate 18 /min Naimaaaron Garcia [facility] Work Phone: [facility] 04-06-2025 17:54-0400 SaO2% (BldA) [Mass fraction] 99 % Naima Garcia [facility] Work Phone: [facility] 04-06-2025 17:54-0400 Systolic blood pressure 115 mm[Hg] Naima Garcia [facility] Work Phone: [facility] 04-03-2025 08:42-0400 Heart rate 88 /min Naima Garcia [facility] Work Phone: [facility] 04-03-2025 08:36-0400 Body temperature 97.6 [degF] Naima Garcia [facility] Work Phone: [facility] 04-03-2025 08:36-0400 Diastolic blood pressure 66 mm[Hg] Naima Garcia [facility] Work Phone: [facility] 04-03-2025 08:36-0400 Respiratory rate 18 /min Naima Garcia [facility] Work Phone: [facility] 04-03-2025 08:36-0400 SaO2% (BldA) [Mass fraction] 96 % Namia Garcia [facility] Work Phone: [facility] 04-03-2025 08:36-0400 Systolic blood pressure 107 mm[Hg] Naima Garcia [facility] Work Phone: [facility] 04-03-2025 05:54-0400 Body mass index (BMI) [Ratio] 33 kg/m2 Naima Garcia [facility] Work Phone: [facility] 04-03-2025 05:54-0400 Body weight 93 kg Naima Garcia [facility] Work Phone: [facility] 04-03-2025 03:00-0400 Inhaled oxygen flow rate 2 L/min Naimaaaron Garcia [facility] Work Phone: [facility] 04-02-2025 22:00-0400 Body temperature 98.1 [degF] Naima Garcia [facility] Work Phone: [facility] 04-02-2025 22:00-0400 Diastolic blood pressure 72 mm[Hg] Naima Garcia [facility] Work Phone: [facility] 04-02-2025 22:00-0400 Heart rate 90 /min Naima Garcia [facility] Work Phone: [facility] 04-02-2025 22:00-0400 Inhaled oxygen flow rate 2 L/min Naimaaaron Garcia [facility] Work Phone: [facility] 04-02-2025 22:00-0400 Respiratory rate 20 /min Naimaaaron Garcia [facility] Work Phone: [facility] 04-02-2025 22:00-0400 Systolic blood pressure 118 mm[Hg] Naima Garcia [facility] Work Phone: [facility] 04-02-2025 14:00-0400 Diastolic blood pressure 71 mm[Hg] Naima Garcia [facility] Work Phone: [facility] 04-02-2025 14:00-0400 Heart rate 101 /min Naimaaaron Garcia [facility] Work Phone: [facility] 04-02-2025 14:00-0400 Respiratory rate 31 /min Naima Garcia [facility] Work Phone: [facility] 04-02-2025 14:00-0400 SaO2% (BldA) [Mass fraction] 94 % Naima Garcia [facility] Work Phone: [facility] 04-02-2025 14:00-0400 Systolic blood pressure 121 mm[Hg] Naimaaaron KellyGarcia [facility] Work Phone: [facility] 04-02-2025 05:20-0400 Body mass index (BMI) [Ratio] 31.7 kg/m2 Naimaaaron KellyGarcia [facility] Work Phone: [facility] 04-02-2025 05:20-0400 Body weight 89.2 kg Naima Jose [facility] Work Phone: [facility] 04-02-2025 03:32-0400 Body height 167.64 cm Naima Jose [facility] Work Phone: [facility] 04-01-2025 23:42-0400 Body temperature 98 [degF] Naimaaaron Garcia [facility] Work Phone: [facility] 04-01-2025 22:30-0400 Inhaled oxygen flow rate 2 L/min Naima Garcia [facility] Work Phone: [facility] 04-01-2025 20:10-0400 Body height 165.1 cm Naima Garcia [facility] Work Phone: [facility] 04-01-2025 20:10-0400 Body mass index (BMI) [Ratio] 35.4 kg/m2 Naima Garcia [facility] Work Phone: [facility] 04-01-2025 20:10-0400 Body weight 96.7 kg Naimaaaron Garcia [facility] Work Phone: [facility] 03-31-2025 17:58-0400 Body mass index (BMI) [Ratio] 33.9 kg/m2 Naima Garcia [facility] Work Phone: [facility] 03-31-2025 17:58-0400 Body temperature 97.5 [degF] Naima Garcia [facility] Work Phone: [facility] 03-31-2025 17:58-0400 Body weight 92.53 kg Naima Garcia [facility] Work Phone: [facility] 03-31-2025 17:58-0400 Diastolic blood pressure 60 mm[Hg] Naima Garcia [facility] Work Phone: [facility] 03-31-2025 17:58-0400 Heart rate 110 /min Naima Garcia [facility] Work Phone: [facility] 03-31-2025 17:58-0400 Respiratory rate 18 /min Naima Garcia [facility] Work Phone: [facility] 03-31-2025 17:58-0400 SaO2% (BldA) [Mass fraction] 95 % Naima Garcia [facility] Work Phone: [facility] 03-31-2025 17:58-0400 Systolic blood pressure 120 mm[Hg] Naima Garcia [facility] Work Phone: [facility] 03-20-2025 17:04-0400 Body height 165.1 cm Naima Garcia [facility] Work Phone: [facility] 03-20-2025 17:04-0400 Body mass index (BMI) [Ratio] 34.1 kg/m2 Naima Garcia [facility] Work Phone: [facility] 03-20-2025 17:04-0400 Body temperature 96.3 [degF] Naima Garcia [facility] Work Phone: [facility] 03-20-2025 17:04-0400 Body weight 92.98 kg Naima Garcia [facility] Work Phone: [facility] 03-20-2025 17:04-0400 Diastolic blood pressure 60 mm[Hg] Naima Garcia [facility] Work Phone: [facility] 03-20-2025 17:04-0400 Heart rate 95 /min Naima Garcia [facility] Work Phone: [facility] 03-20-2025 17:04-0400 Respiratory rate 18 /min Naima Garcia [facility] Work Phone: [facility] 03-20-2025 17:04-0400 SaO2% (BldA) [Mass fraction] 94 % Naima Garcia [facility] Work Phone: [facility] 03-20-2025 17:04-0400 Systolic blood pressure 115 mm[Hg] Naima Garcia [facility] Work Phone: [facility] 12-26-2024 14:59-0400 Body mass index (BMI) [Ratio] 34.1 kg/m2 Naima Garcia [facility] Work Phone: [facility] 12-26-2024 14:59-0400 Body temperature 97.5 [degF] Naima Garcia [facility] Work Phone: [facility] 12-26-2024 14:59-0400 Body weight 92.98 kg Naima Garcia [facility] Work Phone: [facility] 12-26-2024 14:59-0400 Diastolic blood pressure 60 mm[Hg] Naima Garcia [facility] Work Phone: [facility] 12-26-2024 14:59-0400 Heart rate 61 /min Naima Garcia [facility] Work Phone: [facility] 12-26-2024 14:59-0400 Respiratory rate 18 /min Naima Garcia [facility] Work Phone: [facility] 12-26-2024 14:59-0400 SaO2% (BldA) [Mass fraction] 97 % Naima Garcia [facility] Work Phone: [facility] 12-26-2024 14:59-0400 Systolic blood pressure 112 mm[Hg] Naima Garcia [facility] Work Phone: [facility] 12-19-2024 16:51-0400 Body mass index (BMI) [Ratio] 33.9 kg/m2 Naima Garcia [facility] Work Phone: [facility] 12-19-2024 16:51-0400 Body temperature 97.5 [degF] Naima Garcia [facility] Work Phone: [facility] 12-19-2024 16:51-0400 Body weight 92.53 kg Naima Garcia [facility] Work Phone: [facility] 12-19-2024 16:51-0400 Diastolic blood pressure 60 mm[Hg] Naimaaaron Garcia [facility] Work Phone: [facility] 12-19-2024 16:51-0400 Heart rate 83 /min Naimaaaron Garcia RIB CUTTER-C Work Phone: [facility] 12-19-2024 16:51-0400 Respiratory rate 18 /min Naimaaaron Garcia RIB CUTTER-C Work Phone: [facility] 12-19-2024 16:51-0400 SaO2% (BldA) [Mass fraction] 95 % Naimaaaron Garcia RIB CUTTER-C Work Phone: [facility] 12-19-2024 16:51-0400 Systolic blood pressure 100 mm[Hg] Naima Garcia RIB CUTTER-C Work Phone: [facility] 12-12-2024 15:19-0400 Body height 165.1 cm Naima Garcia RIB CUTTER-C Work Phone: [facility] 12-12-2024 15:19-0400 Body mass index (BMI) [Ratio] 33.7 kg/m2 Naima Garcia RIB CUTTER-C Work Phone: [facility] 12-12-2024 15:19-0400 Body temperature 97.5 [degF] Naima Garcia RIB CUTTER-C Work Phone: [facility] 12-12-2024 15:19-0400 Body weight 92.07 kg Naima Garcia RIB CUTTER-C Work Phone: [facility] 12-12-2024 15:19-0400 Diastolic blood pressure 80 mm[Hg] Naima Garcia RIB CUTTER-C Work Phone: [facility] 12-12-2024 15:19-0400 Heart rate 86 /min Naimaaaron Garcia RIB CUTTER-C Work Phone: [facility] 12-12-2024 15:19-0400 Respiratory rate 18 /min Naimaaaron Garcia RIB CUTTER-C Work Phone: [facility] 12-12-2024 15:19-0400 SaO2% (BldA) [Mass fraction] 97 % Naimaaaron Garcia RIB CUTTER-C Work Phone: [facility] 12-12-2024 15:19-0400 Systolic blood pressure 130 mm[Hg] Naimaaaron Garcia RIB CUTTER-C Work Phone: [facility] 12-09-2024 21:53-0400 Body temperature 98.2 [degF] Naimaaaron Garcia RIB CUTTER-C Work Phone: [facility] 12-09-2024 21:53-0400 Diastolic blood pressure 56 mm[Hg] Naimaaaron Garcia RIB CUTTER-C Work Phone: [facility] 12-09-2024 21:53-0400 Heart rate 79 /min Naimaaaron Garcia RIB CUTTER-C Work Phone: [facility] 12-09-2024 21:53-0400 Respiratory rate 18 /min Naimaaaron Garcia RIB CUTTER-C Work Phone: [facility] 12-09-2024 21:53-0400 SaO2% (BldA) [Mass fraction] 96 % Naima Garcia RIB CUTTER-C Work Phone: [facility] 12-09-2024 21:53-0400 Systolic blood pressure 141 mm[Hg] Naimaaaron Garcia RIB CUTTER-C Work Phone: [facility] 12-09-2024 18:28-0400 Body height 165.1 cm Naima Garcia RIB CUTTER-C Work Phone: [facility] 12-09-2024 18:28-0400 Body mass index (BMI) [Ratio] 36.6 kg/m2 Naima Garcia RIB CUTTER-C Work Phone: [facility] 12-09-2024 18:28-0400 Body weight 99.79 kg Naima Garcia RIB CUTTER-C Work Phone: [facility] 12-09-2024 17:39-0400 Body mass index (BMI) [Ratio] 35.2 kg/m2 Naimaaaron Garcia RIB CUTTER-C Work Phone: [facility] 12-09-2024 17:39-0400 Body temperature 97.9 [degF] Naima Garcia RIB CUTTER-C Work Phone: [facility] 12-09-2024 17:39-0400 Body weight 92.98 kg Naima Garcia RIB CUTTER-C Work Phone: [facility] 12-09-2024 17:39-0400 Diastolic blood pressure 70 mm[Hg] Naima Garcia RIB CUTTER-C Work Phone: [facility] 12-09-2024 17:39-0400 Heart rate 90 /min Naima Garcia RIB CUTTER-C Work Phone: [facility] 12-09-2024 17:39-0400 Respiratory rate 18 /min Naima Garcia RIB CUTTER-C Work Phone: [facility] 12-09-2024 17:39-0400 SaO2% (BldA) [Mass fraction] 97 % Naima Garcia RIB CUTTER-C Work Phone: [facility] 12-09-2024 17:39-0400 Systolic blood pressure 120 mm[Hg] Naima Garcia RIB CUTTER-C Work Phone: [facility] 10-03-2024 17:19-0500 Diastolic blood pressure 60 mm[Hg] Naima Garcia RIB CUTTER-C Work Phone: [facility] 10-03-2024 17:19-0500 Heart rate 96 /min Naima Garcia RIB CUTTER-C Work Phone: [facility] 10-03-2024 17:19-0500 Respiratory rate 22 /min Naimaaaron Garcia RIB CUTTER-C Work Phone: [facility] 10-03-2024 17:19-0500 SaO2% (BldA) [Mass fraction] 97 % Naimaaaron KellyGarcia RIB CUTTER-C Work Phone: [facility] 10-03-2024 17:19-0500 Systolic blood pressure 70 mm[Hg] Naimaaaron KellyGarcia RIB CUTTER-C Work Phone: [facility] 10-03-2024 16:49-0500 Body mass index (BMI) [Ratio] 35.2 kg/m2 Naimaaaron KellyGarcia RIB CUTTER-C Work Phone: [facility] 10-03-2024 16:49-0500 Body temperature 97.3 [degF] Naimaaaron KellyGarcia RIB CUTTER-C Work Phone: [facility] 10-03-2024 16:49-0500 Body weight 92.98 kg Naimaaaron Garcia RIB CUTTER-C Work Phone: [facility] 12-21-2023 15:04-0400 Body height 162.56 cm [facility] 12-21-2023 15:04-0400 Body mass index (BMI) [Ratio] 34 kg/m2 [facility] 12-21-2023 15:04-0400 Body temperature 97.2 [degF] [facility] 12-21-2023 15:04-0400 Body weight 89.81 kg [facility] 12-21-2023 15:04-0400 Diastolic blood pressure 60 mm[Hg] [facility] 12-21-2023 15:04-0400 Heart rate 72 /min [facility] 12-21-2023 15:04-0400 Respiratory rate 18 /min [facility] 12-21-2023 15:04-0400 SaO2% (BldA) [Mass fraction] 96 % [facility] 12-21-2023 15:04-0400 Systolic blood pressure 118 mm[Hg] [facility] 12-21-2022 19:18-0400 Body height 162.56 cm [facility] 12-21-2022 19:18-0400 Body mass index (BMI) [Ratio] 37 kg/m2 [facility] 12-21-2022 19:18-0400 Body temperature 97.3 [degF] [facility] 12-21-2022 19:18-0400 Body weight 97.97 kg [facility] 12-21-2022 19:18-0400 Diastolic blood pressure 80 mm[Hg] [facility] 12-21-2022 19:18-0400 Heart rate 84 /min [facility] 12-21-2022 19:18-0400 Respiratory rate 18 /min [facility] 12-21-2022 19:18-0400 SaO2% (BldA) [Mass fraction] 97 % [facility] 12-21-2022 19:18-0400 Systolic blood pressure 142 mm[Hg] [facility] 12-14-2021 18:20-0400 Body height 162.56 cm [facility] Work Phone: 12-14-2021 18:20-0400 Body mass index (BMI) [Ratio] 36.6 kg/m2 [facility] Work Phone: 12-14-2021 18:20-0400 Body temperature 97.3 [degF] [facility] Work Phone: 12-14-2021 18:20-0400 Body weight 96.61 kg [facility] Work Phone: 12-14-2021 18:20-0400 Diastolic blood pressure 70 mm[Hg] [facility] Work Phone: 12-14-2021 18:20-0400 Heart rate 92 /min [facility] Work Phone: 12-14-2021 18:20-0400 Respiratory rate 18 /min [facility] Work Phone: 12-14-2021 18:20-0400 SaO2% (BldA) [Mass fraction] 95 % [facility] Work Phone: 12-14-2021 18:20-0400 Systolic blood pressure 132 mm[Hg] [facility] Work Phone: 09-28-2021 20:26-0500 Heart rate 103 /min [facility] Work Phone: 09-28-2021 20:26-0500 Respiratory rate 20 /min [facility] Work Phone: 09-28-2021 20:26-0500 SaO2% (BldA) [Mass fraction] 93 % [facility] Work Phone: 09-28-2021 17:42-0500 Body mass index (BMI) [Ratio] 34.4 kg/m2 [facility] Work Phone: 09-28-2021 17:42-0500 Body temperature 97.7 [degF] [facility] Work Phone: 09-28-2021 17:42-0500 Body weight 91.17 kg [facility] Work Phone: 09-28-2021 17:42-0500 Diastolic blood pressure 86 mm[Hg] [facility] Work Phone: 09-28-2021 17:42-0500 Systolic blood pressure 144 mm[Hg] [facility] Work Phone: 08-16-2021 09:30-0500 Diastolic blood pressure 67 mm[Hg] Mannie Haskins MD Work Phone: [facility] 08-16-2021 09:30-0500 Heart rate 79 /min Mannie Haskins MD Work Phone: [facility] 08-16-2021 09:30-0500 Respiratory rate 27 /min Mannie Haskins MD Work Phone: [facility] 08-16-2021 09:30-0500 SaO2% (BldA) [Mass fraction] 90 % Mannie Haskins MD Work Phone: [facility] 08-16-2021 09:30-0500 Systolic blood pressure 116 mm[Hg] Mannie Haskins MD Work Phone: [facility] 08-16-2021 08:45-0500 Body temperature 97.39 [degF] Mannie Haskins MD Work Phone: [facility] 08-16-2021 06:48-0500 Body height 165.1 cm Mannie Haskins MD Work Phone: [facility] 08-16-2021 06:48-0500 Body mass index (BMI) [Ratio] 36.61 kg/m2 Mannie Haskins MD Work Phone: [facility] 08-16-2021 06:48-0500 Body weight 99.79 kg Mannie Haskins MD Work Phone: [facility] Encounters Encounter Date Encounter Type Care Provider Facility Start: 04-29-2025 ambulatory Naima Garcia RIB CUTTER Faci lity:[facility] Start: 04-21-2025 Evaluation and management of inpatient Dr. Franko Cueto DO -Progressive Care Unit Work Phone: Start: 04-13-2025 End: 04-13-2025 Patient encounter procedure Tamanna Guerra RIB CUTTER-C -[facility] Work Phone: Start: 04-13-2025 End: 04-13-2025 ambulatory Naima Garcia RIB CUTTER-C Work Phone: -[facility] Start: 04-06-2025 Non-patient / Non-visit Dr. Kalen solis MD -[facility] Start: 04-06-2025 ambulatory Naima pedroza RIB CUTTER-C Work Phone: -[facility] Start: 04-03-2025 Non-patient / Non-visit Dr. Amaris Gomez MD -[facility] Work Phone: Start: 04-02-2025 End: 04-02-2025 ambulatory Naima Garcia RIB CUTTER-C Work Phone: -[facility] Start: 04-02-2025 End: 04-02-2025 Patient encounter procedure Raven Concepcion -[facility] Work Phone: Start: 04-02-2025 Non-patient / Non-visit Dr. Amaris Gomez MD -[facility] Work Phone: Start: 04-02-2025 ambulatory Naima Garcia RIB CUTTER Faci lity:[facility] Start: 04-02-2025 End: 04-03-2025 Evaluation and management of inpatient Dr. Franko Cueto DO -Progressive Care Unit Work Phone: Start: 03-31-2025 End: 03-31-2025 ambulatory Naima Garcia RIB CUTTER-C Work Phone: -Laboratory Specimen Start: 03-31-2025 End: 03-31-2025 Patient encounter procedure Naima Garcia RIB CUTTER-C -Laboratory Specimen Work Phone: Start: 03-31-2025 End: 03-31-2025 ambulatory Naima Garcia RIB CUTTER Facility:[facility] Start: 03-20-2025 End: 03-20-2025 ambulatory Naima Garcia RIB CUTTER-C Work Phone: -Laboratory Specimen Start: 03-20-2025 End: 03-20-2025 Patient encounter procedure Naima Garcia RIB CUTTER-C -Laboratory Specimen Work Phone: Start: 03-20-2025 End: 03-20-2025 ambulatory Naima Garcia RIB CUTTER Facility:[facility] Start: 03-10-2025 End: 03-10-2025 ambulatory NAIMA GARCIA [facility] Start: 12-12-2024 End: 12-12-2024 ambulatory Naima Garcia RIB CUTTER-C Work Phone: [facility] Work Phone: Start: 12-12-2024 End: 12-12-2024 Patient encounter procedure Naima Garcia RIB CUTTER-C -Laboratory, Specimen Work Phone: Start: 12-12-2024 End: 12-12-2024 ambulatory Naima Jose RIB CUTTER Facility:[facility] Start: 12-09-2024 End: 12-09-2024 Emergency department patient visit Naima Garcia RIB CUTTER-C Work Phone: -Emergency Department Work Phone: Start: 12-04-2024 End: 12-04-2024 ambulatory NAIMA GARCIA [facility] Start: 10-03-2024 End: 10-03-2024 Patient encounter procedure Naima Garcia RIB CUTTER-C -Laboratory, Specimen Work Phone: Start: 10-03-2024 Emergency department patient visit NAIMA L JOSE Facility:[facility] Start: 10-03-2024 End: 10-03-2024 ambulatory Naimaaaron KellyGarcia RIB CUTTER Facility:[facility] Start: 09-04-2024 End: 09-04-2024 ambulatory NAIMA GARCIA [facility] Start: 06-05-2024 End: 06-05-2024 ambulatory NAIMA GARCIA [facility] Start: 12-24-2023 ambulatory NAIMA GARCIA Facil ity:[facility] Start: 12-24-2023 End: 12-24-2023 Subsequent hospital visit by physician [facility] Comment on above: Left foot XR Start: 12-21-2023 End: 12-21-2023 ambulatory [facility] Work Phone: Start: 12-21-2023 End: 12-21-2023 Patient encounter procedure [facility]-Laboratory, Specimen Work Phone: Start: 12-22-2022 End: 12-22-2022 Subsequent hospital visit by physician [facility] Comment on above: Pain in right hip [M 25.551] Start: 12-21-2022 End: 12-21-2022 ambulatory [facility] Work Phone: Start: 12-21-2022 End: 12-21-2022 Patient encounter procedure [facility]-Laboratory, Specimen Start: 12-14-2021 End: 12-14-2021 Patient encounter procedure [facility]-Laboratory, Specimen Start: 09-28-2021 End: 09-28-2021 Emergency department patient visit [facility]-Emergency Department Start: 08-16-2021 End: 08-16-2021 Subsequent hospital visit by physician Mannie Haskins MD Work Phone: [facility] [employer] Comment on above: Arrived Procedures Date Procedure Procedure Detail Performing Clinician Start: 04-21-2025 CT angiography of ch est with contrast Naima Garcia RIB CUTTER-C Work Phone: Start: 04-21-2025 Plain chest X-ray Naimaaaron Garcia RIB CUTTER-C Work Phone: Start: 04-21-2025 D-dimer assay, quantitative Naima Garcia RIB CUTTER-C Work Phone: Comment on above: D-Dimer ELEVATED (>0 .49): Additional studies and clinicalassessments are indicated to conclude diagnosis of:Deep Vein Thrombosis (DVT) or Pulmonary Embolism (PE)CRITICAL VALUE CALLED TO [place] CARTWRIGHT (ER)04/21/25 [facility]9 Dwayne Arias.RESULTS READ BACK BY SAME. Start: 04-21-2025 Estimated creatinine clearance Naimaaaron Garcia RIB CUTTER-C Work Phone: Start: 04-03-2025 Estimated creatinine clearance Naima Garcia RIB CUTTER-C Work Phone: Start: 04-03-2025 Serum inorganic phos phate measurement Naima Garcia RIB CUTTER-C Work Phone: Start: 04-02-2025 Plain chest X-ray Naima Jose RIB CUTTER-C Work Phone: Start: 04-02-2025 Coagulation time, activated Naima Garcia RIB CUTTER-C Work Phone: Start: 04-02-2025 Estimated creatinine clearance Naima Garcia RIB CUTTER-C Work Phone: Start: 04-02-2025 Vitamin D, 25-hydrox y measurement Niama Garcia RIB CUTTER-C Work Phone: Comment on above: Vitamin D StatusDefi ciency: <20 ng/mL (50nmol/L)Insufficiency: 20-30 ng/mL (50-75 nmol/L)Sufficiency: 30-100 ng/mL (75-250 nmol/L)Toxicity: >100 ng/mL (>250 nmol/L) Start: 04-01-2025 Oxygen measurement Naima Garcia RIB CUTTER-C Work Phone: Start: 04-01-2025 Plain chest X-ray Naima Garcia RIB CUTTER-C Work Phone: Start: 04-01-2025 D-dimer assay, quantitative Naima Garcia RIB CUTTER-C Work Phone: Comment on above: NORMAL D-Dimer level (<0.50) indicates no DVT or PE. Start: 04-01-2025 Estimated creatinine clearance Naima Garcia RIB CUTTER-C Work Phone: Start: 12-12-2024 Anaerobic microbial culture Naima Garcia RIB CUTTER-C Work Phone: Start: 12-12-2024 Gram stain microscopy D denis Garcia RIB CUTTER-C Work Phone: Start: 12-12-2024 End: 12-12-2024 Microbial culture, routine Naima Churchill on RIB CUTTER-C Work Phone: Start: 12-09-2024 Estimated creatinine clearance Naima Garcia RIB CUTTER-C Work Phone: Start: 10-03-2024 Urine culture Naima sánchezon RIB CUTTER-C Work Phone: Start: 09-28-2021 SARS-CoV-2 Antigen (Rapid) Start: 08-16-2021 Ecg routine ecg w/le ast 12 lds w/i&r Shantelle Flores [employer] Work Phone: Start: 08-16-2021 EP NURSE PROCEDURE REPORT 3m Scanning Start: 08-16-2021 Cardiac catheterization Shantelle Flores [employer]ENER [employer] Work Phone: Start: 10-03-2019 Lipid 1996 panel - S morteza or [facility] Start: 04-09-2018 Mammography [facility] Start: 12-29-2009 Microscopic observat ion [Identifier] in Cervix by Cyto stain Mannie Haskins MD Work Phone: Plan of Treatment Date Care Activity Detail Author Start: 04-21-2025 Verification routine [facility] Start: 04-21-2025 Admission procedure [facility] Start: 04-21-2025 Hospital admission, emergency, from emergency room, medical nature [facility] Start: 04-21-2025 [facility] Start: 04-03-2025 Patient discharge [facility] Start: 04-03-2025 [facility] Start: 04-02-2025 [facility] Start: 04-02-2025 Verification routine [facility] Start: 04-02-2025 Ambulation without limitation [facility] Start: 04-02-2025 Assessment of risk of venous thromboembolism [facility] Start: 04-02-2025 Care regimes management [facility] Start: 04-02-2025 Insertion of catheter into peripheral vein [facility] Start: 04-02-2025 Measuring intake and output [facility] Start: 04-02-2025 Notification of physician [facility] Start: 04-02-2025 Oxygen therapy [facility] Start: 04-02-2025 Providing care according to standard [facility] Start: 04-02-2025 Referral to event marketing representative [facility] Start: 04-02-2025 Referral to service [facility] Start: 04-02-2025 End: 04-02-2025 [facility] Start: 04-02-2025 Following clinical pathway protocol [facility] Start: 04-02-2025 Verification routine [facility] Start: 04-02-2025 Admission procedure [facility] Start: 04-02-2025 Cardiac rehabilitation - phase 1 [facility] Start: 04-02-2025 Cardiac rehabilitation - phase 2 [facility] Start: 04-01-2025 Hospital admission, emergency, from emergency room, medical nature [facility] Start: 04-01-2025 [facility] Start: 03-31-2025 Measurement of C-reactive protein using high sensitivity technique [facility] Start: 12-09-2024 [facility] Start: 12-09-2024 Incision & drainage abscess simple/single I&D ABSCESS SIMPLE/SINGLE [facility] Start: 10-03-2024 Lipid panel Lipid Screening [facility] Start: 07-22-2024 Diabetes Screening Diabetes Screening [facility] Start: 05-25-2024 Influenza vaccination Influenza Vaccine (Season Ended) [facility] Start: 09-24-2023 Depression Assessment Depression Assessment [facility] Start: 05-25-2023 Covid-19 Vaccine ( season) Covid-19 Vaccine ( season) [facility] Start: 09-24-2022 DEPRESSION ASSESSMENT DEPRESSION ASSESSMENT [facility] Start: 08-07-2022 LIPID SCREEN LIPID SCREEN [facility] Start: 07-22-2022 Creatinine measurement Creatinine monitoring [facility] Start: 07-22-2022 Potassium monitoring Potassium monitoring [facility] Start: 05-25-2022 Influenza vaccination INFLUENZA (#1) [facility] Start: 2022 RSV Vaccine (1 - 1-dose 60+ series) RSV Vaccine (1 - 1-dose 60+ series) [facility] Start: 08-30-2021 End: 08-30-2021 Nursing evaluation of patient and report 08/30/2021 Nurse Only Cardiology Madelaine Sam, [facility] Start: 05-25-2021 Influenza vaccination Flu vaccine (#1) [facility] Start: 03-25-2021 DIABETES SCREEN DIABETES SCREEN [facility] Start: 10-03-2020 Lipid panel Lipid screen [facility] Start: 07-22-2019 Diabetic foot examination Diabetic foot exam [facility] Start: 04-09-2019 Mammography MAMMOGRAM [facility] Start: 04-09-2019 Screening for malignant neoplasm of [...] of 2) SHINGRIX VACCINE (1 of 2) [facility] Start: 2007 COLOGUARD (FIT-DNA) COLOGUARD (FIT-DNA) [facility] Start: 2007 Colonoscopy COLONOSCOPY [facility] Start: 2007 COLORECTAL CANCER SCREENING COLORECTAL CANCER SCREENING [facility] Start: [address] COLONOGRAPHY [facility] Start: 2007 FECAL OCCULT BLOOD FECAL OCCULT BLOOD [facility] Start: 2007 Screening for malignant neoplasm of colon [facility] Start: 2007 SIGMOIDOSCOPY SIGMOIDOSCOPY [facility] Start: 1992 HPV TESTING HPV TESTING [facility] Start: 1992 Screening for malignant neoplasm of cervix [facility] Start: 1983 PAP TESTING PAP TESTING [facility] Start: 1983 Screening for malignant neoplasm of cervix Pap Testing [facility] Start: 1981 DTaP/Tdap/Td vaccine (1 - Tdap) DTaP/Tdap/Td vaccine (1 - Tdap) [facility] Start: 1981 Hepatitis B vaccine (1 of 3 - Risk 3-dose series) Hepatitis B vaccine (1 of 3 - Risk 3-dose series) [facility] Start: 1981 Urine microalbumin profile [facility] Start: 1980 HEPATITIS C SCREENING HEPATITIS C SCREENING [facility] Start: 1980 Hepatitis C screening Hepatitis C Screening [facility] Start: 1980 HIV SCREENING HIV SCREENING [facility] Start: 1980 HIV screening HIV Screening [facility] Start: 1977 HIV screening HIV screen [facility] Start: 1974 COVID-19 Vaccine (1) COVID-19 Vaccine (1) [facility] Start: 1968 Pneumococcal 0-64 years Vaccine (1 of 2 - PPSV23) Pneumococcal 0-64 years Vaccine (1 of 2 - PPSV23) [facility] Start: 1962 COVID-19 VACCINE (#1) COVID-19 VACCINE (#1) [facility] Start: 1962 Hepatitis C screening Hepatitis C screen [facility] Alanine aminotransfe rase [Enzymatic activity/volume] in Serum or Plasma [facility] Alanine aminotransfe rase [Enzymatic activity/volume] in Serum or Plasma [facility] Alanine aminotransfe rase [Enzymatic activity/volume] in Serum or Plasma [facility] Alanine aminotransfe rase [Enzymatic activity/volume] in Serum or Plasma [facility] Albumin [Mass/volume ] in Serum or Plasma [facility] Albumin [Mass/volume ] in Serum or Plasma [facility] Albumin [Mass/volume ] in Serum or Plasma [facility] Albumin [Mass/volume ] in Serum or Plasma [facility] Alkaline phosphatase [Enzymatic activity/volume] in Serum or Plasma [facility] Alkaline phosphatase [Enzymatic activity/volume] in Serum or Plasma [facility] Alkaline phosphatase [Enzymatic activity/volume] in Serum or Plasma [facility] Alkaline phosphatase [Enzymatic activity/volume] in Serum or Plasma [facility] Anion gap in Serum o r Plasma [facility] Anion gap in Serum o r Plasma [facility] Anion gap in Serum o r Plasma [facility] Anion gap in Serum o r Plasma [facility] Bilirubin, total measurement [facility] Bilirubin, total measurement [facility] Bilirubin, total measurement [facility] Bilirubin, total measurement [facility] [facility] BUN/Creatinine ratio [facility] BUN/Creatinine ratio [facility] BUN/Creatinine ratio [facility] BUN/Creatinine ratio [facility] Calcium [Mass/volume ] in Serum or Plasma [facility] Calcium [Mass/volume ] in Serum or Plasma [facility] Calcium [Mass/volume ] in Serum or Plasma [facility] Calcium [Mass/volume ] in Serum or Plasma [facility] Carbon dioxide, tota l [Moles/volume] in Central venous blood [facility] Carbon dioxide, tota l [Moles/volume] in Central venous blood [facility] Carbon dioxide, tota l [Moles/volume] in Central venous blood [facility] Carbon dioxide, tota l [Moles/volume] in Central venous blood [facility] Cholesterol [Mass/vo lume] in Serum or Plasma [facility] Cholesterol in HDL [Mass/volume] in Serum or Plasma [facility] Creatinine [Mass/vol ume] in Serum or Plasma [facility] Creatinine [Mass/vol ume] in Serum or Plasma [facility] Creatinine [Mass/vol ume] in Serum or Plasma [facility] Creatinine [Mass/vol ume] in Serum or Plasma [facility] EKG 12 Lead EKG 12 Lead ECG Routine 08/16/2021 8:55 AM EST [facility] Work Phone: End: 08-16-2021 ELECTROPHYSIOLOGY DEVICE ELECTROPHYSIOLOGY DEVICE Echocardiography Routine One Time for 1 Occurrences starting 08/16/2021 until 08/16/2021 [facility] Work Phone: Comment on above: One Time for 1 Occurrences starting 07/26 until 08/16/2021 Erythrocyte mean corpuscular volume determination [facility] Erythrocyte mean corpuscular volume determination [facility] Erythrocyte mean corpuscular volume determination [facility] Erythrocyte mean corpuscular volume determination [facility] Glucose [Mass/volume ] in Serum or Plasma [facility] Glucose [Mass/volume ] in Serum or Plasma [facility] Glucose [Mass/volume ] in Serum or Plasma [facility] Glucose [Mass/volume ] in Serum or Plasma [facility] Hematocrit [Volume Fraction] of Blood [facility] Hematocrit [Volume Fraction] of Blood [facility] Hematocrit [Volume Fraction] of Blood [facility] Hematocrit [Volume Fraction] of Blood [facility] Hemoglobin [Mass/vol ume] in Blood [facility] Hemoglobin [Mass/vol ume] in Blood [facility] Hemoglobin [Mass/vol ume] in Blood [facility] Hemoglobin [Mass/vol ume] in Blood [facility] Hepatic function panel [facility] Leukocytes [#/volume ] in Blood [facility] Leukocytes [#/volume ] in Blood [facility] Leukocytes [#/volume ] in Blood [facility] Leukocytes [#/volume ] in Blood [facility] Lipid 1996 panel - S morteza or Plasma [facility] Low density lipoprot ein cholesterol measurement [facility] Mean corpuscular hemoglobin concentration determination [facility] Mean corpuscular hemoglobin concentration determination [facility] Mean corpuscular hemoglobin concentration determination [facility] Mean corpuscular hemoglobin concentration determination [facility] Mean corpuscular hemoglobin determination [facility] Mean corpuscular hemoglobin determination [facility] Mean corpuscular hemoglobin determination [facility] Mean corpuscular hemoglobin determination [facility] Measurement of renal function [facility] Measurement of renal function [facility] Measurement of renal function [facility] Measurement of renal function [facility] Neutrophil count [facility] Neutrophil count [facility] Neutrophil count [facility] Neutrophil count [facility] Neutrophil percent differential count [facility] Neutrophil percent differential count [facility] Neutrophil percent differential count [facility] Neutrophil percent differential count [facility] Oxygen therapy [[facility] Data Set] Initiate Oxygen Therapy Protocol Respiratory Care Routine Daily until discontinued starting 08/16/2021 [facility] Work Phone: Comment on above: Daily until discontinued starting 2020 Patient Education [facility] Work Phone: Patient referral [facility] Work Phone: Platelets [#/volume] in Blood [facility] Platelets [#/volume] in Blood [facility] Platelets [#/volume] in Blood [facility] Platelets [#/volume] in Blood [facility] Potassium measurement [facility] Potassium measurement [facility] Potassium measurement [facility] Potassium measurement [facility] Red blood cell count [facility] Red blood cell count [facility] Red blood cell count [facility] Red blood cell count [facility] Red cell distributio n width determination [facility] Red cell distributio n width determination [facility] Red cell distributio n width determination [facility] Red cell distributio n width determination [facility] Serum chloride measurement [facility] Serum chloride measurement [facility] Serum chloride measurement [facility] Serum chloride measurement [facility] Sodium measurement [facility] Sodium measurement [facility] Sodium measurement [facility] Sodium measurement [facility] Total cholesterol:HD L ratio measurement [facility] Total protein measurement [facility] Total protein measurement [facility] Total protein measurement [facility] Total protein measurement [facility] Triglycerides measurement [facility] Troponin T.cardiac [Mass/volume] in Serum or Plasma by High sensitivity method [facility] Troponin T.cardiac [Mass/volume] in Serum or Plasma by High sensitivity method [facility] Urea nitrogen [Mass/volume] in Serum or Plasma [facility] Urea nitrogen [Mass/volume] in Serum or Plasma [facility] Urea nitrogen [Mass/volume] in Serum or Plasma [facility] Urea nitrogen [Mass/volume] in Serum or Plasma [facility] US Heart limited [facility] VLDL cholesterol measurement [facility] Immunizations Immunization Date Immunization Notes Care Provider Fa [facility] 08-07-2013 influenza virus vaccine, unspecified formulation Mannie Haskins MD Work Phone: [facility] Work Phone: Payers Date Payer Category Payer Self-pay [id number] 2022 Unknown MMO MMO [employer] PPO [id number] 2022-Present [phone] [address] [place] [address] PPO [id number] 2020 Unknown [id number] Unknown [id number] Unknown [id number] [id number] Unknown [id number] [id number] Unknown [id number] [id number] Unknown [id number] [id number] Unknown [id number] [id number] Unknown [id number] [id number] Unknown [id number] [id number] Unknown [id number] [id number] Unknown [id number] [id number] Unknown [id number] [id number] Unknown [id number] [id number] Unknown [id number] [id number] Unknown [id number] [id number] Social History Date Type Detail Facility Start: 06-16-2015 End: 04-21-2025 Tobacco smoking status NHIS Ex-smoker [facility] Work Phone: End: 09-24-2010 History of tobacco use Current smoker [facility] Work Phone: End: 09-24-2010 History of tobacco use Cigarette Smoker [facility] Work Phone: Start: 06-16-2015 End: 08-29-2020 Cigarettes smoked current (pack per day) - Reported 1.5 [facility] Work Phone: Start: 06-16-2015 End: 09-28-2021 Tobacco use and exposure Smokeless tobacco non-user [facility] Work Phone: Start: 07-22-2021 Alcohol intake Current non-dr director of analytical development of alcohol (finding) [facility] Work Phone: Start: 1960 Sex Assigned At Not on file [facility] [employer] Work Phone: Exposure to SARS-CoV -2 (event) Not sure [facility] Start: 09-28-2021 Tobacco smoking stat us GAIS Unknown if ever smoked [facility] Start: 03-20-2020 Spouse/ Signif icant Other [facility] Start: 1960 Sex Assigned At Female [facility] Start: 09-28-2021 End: 04-02-2025 Tobacco smoking status NHIS Never smoked tobacco [facility] Start: 08-29-2020 End: 09-28-2021 Tobacco use panel [facility] National Score (1-10 0), lower number is lower risk Not on file [facility] Start: 12-09-2024 End: 12-16-2024 Sex Female (finding) [facility] Medical Equipment Procedure Code Equipment Code Equipment Origin al Text Equipment Identifier Dates 1 each by In Vit ro route 2 times daily As needed. [id number] Start: 07-22-2018 Blood Sugar Diagnostic (Onetouch Ultra [...] misc Start: 12-21-2023 Drug-eluting coronary artery stent, zwo-phudoxxvbwqrz-im lymer-coated ()[id number] FDA Start: 04-02-2025 Blood Sugar Diagnostic (Onetouch [...] Assessment Result Facility 04-03-2025 Functional status [facility] Work Phone: 04-03-2025 Functional status [facility] Work Phone: 04-02-2025 Functional status [facility] Work Phone: Mental Status Date Assessment Result Facility 04-21-2025 Cognitive function Voice/Name [facility] Work Phone: 04-03-2025 Cognitive function Voice/Name [facility] Work Phone: 04-02-2025 Cognitive function Voice/Name [facility] Work Phone: 04-01-2025 Cognitive function Awake;Alert;A ppropriate;Fo llows Commands [facility] Work Phone: Clinical Notes 09-28-2021 to 04-21-2025 Note Date & Type Note Facility 04-21-2025 Discharge summary [facility] 04-21-2025 Radiology Diagnostic study note [facility] Imaging Services [address] [place] [address] CTA Chest W/WO Contrast MR#: [id number] Acct: [id number] Name: EAMON HUSTON Rep #: [id number] : 1960 F 64 From: [facility] cruz Langford MD PCP: ESTEBAN Castellanos Status: REG ER Study:CTA Chest W/WO Contrast Date of Exam: 04/21/25 Exam# [id number] Ordering Dr: Rangel Jang DO PROCEDURE: CTA [...] and trace bilateral pleural effusions. Reading Location: [facility] CC: ESTEBAN Garcia; Dr. Mago Jang DO ~ Special Order Jeweler: Signed [facility] 04-21-2025 Radiology Diagnostic study note [facility] Imaging Services [address] [place] [address] Chest 1 View (Portable) MR#: [id number] Acct: [id number] Name: EAMON HUSTON Rep #: [id number] : 1960 F 64 From: Deb Cooley MD PCP: ESTEBAN Castellanos Status: REG ER Study:Chest 1 View (Portable) Date of Exam: 04/21/25 Exam# [id number] Ordering Dr: Rangel Jang DO EXAM: XR [...] IMPRESSION: Cardiomegaly with mild congestion. Reading Location: [facility] CC: RIB CUTTERNick Garcia; Dr. Mago Jang DO ~ Special Order Jeweler: Signed [facility] 04-21-2025 Discharge summary Note Date/Time April 21, 2025 6:32pm [facility] Medical Records Department [address] [place] [address] Emergency Department Summary 04/21/25 MR#: [id number] Acct: [id number] Name: EAMON HUSTON Rep #:[id number] : [...] staged PCI to the LAD. EF 25%. [facility] Medical History Acute non-ST elevation myocardial infarction [...] ta bs 04/13/25 04/21/25 Rx glucosamine 750 wl-nqcpgacvlki-nki 2 tab PO DAILY 03/2504/21/25 History no1 644 mg-C 30 mg-mar 1 mg tablet (Osteo Bi-Flex Triple Strength) Allergy/AdvReac Type Severity Reaction Status Date / Time sitagliptin (From Januvia) Allergy Severe Rash Verified 04/21/25 13:49 Abapjwm-QRM-LzZ Reductase Allergy Intermediate cramps Verified 04/21/25 13:49 Inhibitor (Zerzizm-Azx-Bme Reductase Inhibitor) dapagliflozin (From [facility]) AdvReac Severe yeast Verified 04/21/25 13:49 [...] 73.2 H Lymph % (Auto) 18.2 L Sullivan % (Auto) 7.2 Eos % (Auto) 0.3 [...] IMPRESSION: Cardiomegaly with mild congestion. Reading Location: [facility] Chest CTA 04/21/25 14:47 IMPRESSION: No pulmonary arterial emboli identified. Cardiomegaly with pulmonary edema and trace bilateral pleural effusions. Reading Location: [facility] Rhythm Strip Rhythm Strip: Paced Rate: 114 [...] Naima Garcia NP Referrals: Naima Garcia NP, RIB CUTTER-C [Primary Care Provider] - Print Language: Barbadian Disposition Disposition: Acute Care Hospital [facility] What to do if you have Problems For any increased pain, shortness of breath, bleeding, nausea or vomiting, chestpain, or any unexpected problems, contact your Primary Care Provider. Call [facility] ([phone]) or report to the closest Emergency Room. Call 911 if necessary. 04/21/25 2028 <Electronically signed by Mago Jang DO> Cosigner Signature (if applicable): CC: RIB CUTTER-C Naima Garcia ~ Signed [facility] Work Phone: 1(453) 229-648807-11-2025 Progress note Author Kalen Edwards [facility] Note Date/Time April 03, 2025 9:44 am [facility] Medical Records Department [address] [place] [address] Progress Note - Cardiology 04/03/25 0939 MR#: [id number] Acct: [id number] Name: EAMON HUSTON Rep #:[id number] : 1960 64 From: Kalen Edwards MD PCP: ESTEBAN Castellanos Status:ADM IN Location: [place] [address] Subjective Subjective She is doing well she [...] % (Auto) 51.4, Lymph % (Auto) 34.3, Sullivan % (Auto) 11.9 H, Eos % (Auto) [...] % (Auto) 51.4, Lymph % (Auto) 34.3, Sullivan % (Auto) 11.9 H, Eos % (Auto) [...] acute osseous process is evident. Reading Location: [address] Physical Exam Const alert HEENT normocephalic [...] Cosigner Signature (if applicable): CC: ~ Signed [facility] Work Phone: 1(515) 515-557407-11-2025 Progress note [facility] Medical Records Department [address] [place] [address] Progress Note - Cardiology 04/03/25938 MR#: [id number] Acct: [id number] Name: EAMON HUSTON Rep #:[id number] : 1960 64 From: Kalen Edwards MD PCP: ESTEBAN Castellanos Status:ADM IN Location: [place] [address] Subjective Subjective She is doing well she [...] % (Auto) 51.4, Lymph % (Auto) 34.3, Sullivan % (Auto) 11.9 H, Eos % (Auto) [...] % (Auto) 51.4, Lymph % (Auto) 34.3, Sullivan % (Auto) 11.9 H, Eos % (Auto) [...] acute osseous process is evident. Reading Location: [address] Physical Exam Const alert HEENT normocephalic [...] Cosigner Signature (if applicable): CC: ~ Signed [facility]07-11-2025 Discharge summary Author Amaris Gomez [facility] Note Date/Time April 03, 2025 7:20 am [facility] Medical Records Department [address] [place] [address] Instructions for Home/Discharge Instructions 04/03/25 0719 MR#: [id number] Acct: [id number] Name: EAMON HUSTON Rep #:[id number] : [...] at follow- up(call office if any concerns [phone] and may leave voicemail if after hours). [...] follow-up to establish with Endocrinology, may see RIB CUTTER.) Naima Garcia NP, RIB CUTTER-C [Primary Care Provider] - (Follow-up within 3-5 [...] by Amaris Gomez MD>Amaris Gomez MD CC: RIB CUTTER-C Naima Garcia; Dr. Franko Cueto DO; Dr. Mino Zhang MD ~ Signed [facility] Work Phone: 1(589) 612-619207-11-2025 Discharge summary [facility] Medical Records Department [address] [place] [address] Instructions for Home/Discharge Instructions 04/03/25718 MR#: [id number] Acct: [id number] Name: EAMON HUSTON Rep #:[id number] : [...] Cardiology at follow- up(call office if anyconcerns [phone] and may leave voicemail if after hours). [...] to establish with Endocrinologyamairani NP.) Naima Garcia RIB CUTTER, RIB CUTTER-C [Primary Care Provider] - (Follow-up within 3-5 days to review admission. Repeat BP check given new medications. Repeat basic metabolic panel at follow-up.) Jojo Parker PA [Med Staff - Adv Practice Prof] - (Please follow- upin 1-2 weeks for re-evaluation following recent PCI admission.) Disposition Disposition (needs filled in before D/C Order can be placed): Home, Self Care 04/03/25 0720Amaris Gomez MD CC: RIB CUTTER-C Naima Garcia; Dr. Franko Cueto DO; Dr. Mino Zhang MD ~ Signed [facility]07-11-2025 [facility] Medical Records Department [address] [place] [address] Discharge Summary 04/03/25 07 MR#: [id number] Acct: [id number] Name: EAMON HUSTON Rep #: [id number] : 1960 64 From: Amaris Gomez MD PCP: ESTEBAN Castellanos Status:DIS IN Location: [facility] [id number] Providers Date of Admission: 04/02/25 Date of Discharge: 04/03/25 Primary Care Physician: ESTEBAN Castellanos Consultations 04/02/25 03:30 Consult: Cardiology Routine Consulting Provider: Mino Zhang Reason for Consult: NSTEMI, eval for [facility] Consult: No MD Notified: Yes Date [...] at Discharge Home Medications blood sugar diagnostic (SWEEPiOTouch Ultra Test strips) #100 ea 12/21/23 lancets [...] II poorly controlled who presented to the [facility] ED on 04/01/2025 with history of [...] Following patient is maintained (more content not included)...[facility]07-10-2025 Radiology Diagnostic study note [facility] Imaging Services [address] [place], [place] [address] Chest 1 View (Portable) MR#: [id number] Acct: [id number] Name: EAMON HUSTON Rep #: [id number] : 1960 F 64 From: Go Sims MD PCP: ESTEBAN Castellanos Status: ADM IN Study:Chest 1 View (Portable) Date of Exam: 04/02/25 Exam# [id number] Ordering Dr: John Edwards MD PROCEDURE: CHEST [...] acute osseous process is evident. Reading Location: [address] CC: RIB CUTTER-C Naima Garcia; Dr. Kalen Edwards MD ~ Special Order Jeweler: Signed [facility]07-10-2025 Progress note Author Amaris Gomez [facility] Note Date/Time April 02, 2025 12:0 3pm [facility] Medical Records Department [address] [facility] [place] [address] Progress Note - Hospitalist 04/02/25704 MR#: [id number] Acct: [id number] Name: EAMON HUSTON Rep #:[id number] : 1960 64 From: Amaris Gomez MD PCP: ESTEBAN Castellanos Status:ADM IN Location: [place] [address] Reason for Visit Reason for Visit: Diagnoses [...] 40.6 L, Lymph % (Auto) 47.8 H, Sullivan % (Auto) 9.2, Eos % (Auto) 1.3, [...] edema. No sizable pleural effusion. Reading Location: [facility] Rhythm Strip Rhythm Strip: Sinus Tach Rate: [...] II poorly controlled who presents to the [facility] ED on 04/01/2025 with history of [...] further planning. If cardiac cath is unremarkable event marketing representative did note that given her current improvement [...] Full Code. Charges/Coding Visit Charges Inpatient E&M: 64084 Subs Hosp L3 04/02/25 1203 <Electronically signed by Amaris Gomez MD> Iraer Signature (if applicable): CC: ~ Signed [facility] Work Phone: 1(662) 958-572307-10-2025 Procedure [facility] [address] [place] [address] Pacemaker Check Date of Service: 04/02/25 1342 MR#: [id number] Acct: [id number] Name: EAMON HUSTON Rep #: [id number] : 1960 From: Raven johnson Age/Sex: 64/F [place] [facility] [place]: Signed Billing Codes ICD Device Billin ICD Dev Prog Eval, Multi Assessment and Plan Assessment and Plan (1) Biventricular automatic implantable cardioverter defibrillator in situ: Status: Acute 04/02/25 1353 > Date _ Raven Miller Signature: Date (if applicable) CC: ~ [facility]07-10-2025 Study report [facility] Cardiac Rehab [address] [place] [address] CR: Phase I Education Summary MR#: [id number] Acct: [id number] Name: EAMON HUSTON Rep #:[id number] : 1960 64 From: Kassandra govea PCP: ESTEBAN Castellanos DOS: 04/02 General Education Discussed with Patient CAD and cardiac anatomy and function:: Patient communicates acknowledgment Explanation of diagnoses and procedures:: Patient communicates acknowledgment Sign/Symptoms of ND:: Patient communicates acknowledgment Antiplatelet therapy: Patient communicates [...] protocol. Cosigner Signature: Date CC: ~ Signed [facility]07-10-2025 Consult note Author Kalen Edwards [facility] Note Date/Time April 02, 2025 11:3 0am [facility] Medical Records Department [address] [place] [address] Consultation - Cardiology 04/02/25 0844 MR#: [id number] Acct: [id number] Name: EAMON HUSTON Rep #:[id number] : 1960 64 From: Kalen Edwards MD PCP: ESTEBAN Castellanos Status:ADM IN Location: [place] [address] Assessment & Plan Assessment/Plan (1) Acute non-ST [...] Code(s): I25.10 - Atherosclerotic heart disease of [place] coronary artery without angina pectoris; I25.83 - [...] post MORGAN to LAD in 2010 at [facility], hypertension, paroxysmal atrial fibrillation not on AC [...] of severe myalgia when she had statin. [facility] Medical History ESBL (extended spectrum beta-lactamase) [...] Sep) Allergy Severe Rash Verified 04/01/25 20:10 Ikkaqhw-JCG-DfL Reductase Allergy Intermediate cramps Verified 04/01/25 20:10 Inhibitor (Ywuulxd-Kbv-Htb Reductase Inhibitor) dapagliflozin (From [facility]) AdvReac Severe yeast Verified 04/01/25 20:10 [...] 40.6 L, Lymph % (Auto) 47.8 H, Sullivan % (Auto) 9.2, Eos % (Auto) 1.3, [...] 40.6 L, Lymph % (Auto) 47.8 H, Sullivan % (Auto) 9.2, Eos % (Auto) 1.3, [...] edema. No sizable pleural effusion. Reading Location: [id number] 04/02/25 8584 <Electronically signed by Kalen Edwards MD> Cosigner Signature (if applicable): CC: ESTEBAN Garcia~ Signed [facility] Work Phone: 1(151) 872-798807-10-2025 Progress note [facility] Medical Records Department [address] [place] [address] Progress Note - Hospitalist 04/02/25704 MR#: [id number] Acct: [id number] Name: EAMON HUSTON Rep #:[id number] : 1960 64 From: Amaris Gomez MD PCP: ANGEL CastellanosC Status:ADM IN Location: [place] [address] Reason for Visit Reason for Visit: Diagnoses [...] 40.6 L, Lymph % (Auto) 47.8 H, Sullivan % (Auto) 9.2, Eos % (Auto) 1.3, [...] edema. No sizable pleural effusion. Reading Location: [facility] Rhythm Strip Rhythm Strip: Sinus Tach Rate: [...] II poorly controlled who presents to the [facility] ED on 04/01/2025 with history of [...] FLP with triglyceride 316, total cholesterol 220, TXJ396, VLDL 63, HDL 32 with Zetia 10 [...] further planning. If cardiac cath is unremarkable event marketing representative did note that given her current improvement [...] Full Code. Charges/Coding Visit Charges Inpatient E&M: 06946 Subs Hosp L3 04/02/25 1203 Cosigner Signature (if applicable): CC: ~ Signed [facility]07-10-2025 Consult note [facility] Medical Records Department [address] [place] [address] Consultation - Cardiology 04/02/25 0893 MR#: [id number] Acct: [id number] Name: EAMON HUSTON Rep #:[id number] : 1960 64 From: Kalen Edwards MD PCP: Naima Garcia RIB CUTTER-C Status:ADM IN Location: [place] [address] Assessment & Plan Assessment/Plan (1) Acute non-ST [...] Code(s): I25.10 - Atherosclerotic heart disease of [place] coronary artery without angina pectoris; I25.83- Coronary [...] post MORGAN to LAD in 2010 at [facility], hypertension, paroxysmal atrial fibrillation not on AC [...] of severe myalgia when she had statin. [facility] Medical History ESBL (extended spectrum beta-lactamase) [...] ) Allergy Severe Rash Verified 04/01/25 20:10 Enmlzrt-ZEP-AcA Reductase Allergy Intermediate cramps Verified 04/01/25 20:10 Inhibitor (Wjbdgfh-Umb-Pwl Reductase Inhibitor) dapagliflozin (From [facility]) AdvReac Severe yeast Verified 04/01/25 20:10 [...] 40.6 L, Lymph % (Auto) 47.8 H, Sullivan % (Auto) 9.2, Eos % (Auto) 1.3, [...] 40.6 L, Lymph % (Auto) 47.8 H, Sullivan % (Auto) 9.2, Eos % (Auto) 1.3, [...] edema. No sizable pleural effusion. Reading Location: [facility] 04/02/25 1130 Cosigner Signature (if applicable): CC: ESTEBAN Garcia~ Signed [facility]07-10-2025 History and physical note Author Franko Cueto [facility] Note Date/Time April 02, 2025 5:06 am [facility] Medical Records Department [address] [place] [address] H&P Exam - Hospitalist 04/01/25 2016 MR#: [id number] Acct: [id number] Name: EAMON HUSTON Rep #:[id number] : 1960 64 From: Franko daley DO PCP: ESTEBAN Castellanos Status:ADM IN Location: [place] [id number] 1 HPI - General General Date of Admission: 04/02/25 Date of Service: 04/01/25 Chief Complaint: Chest discomfort and shortness of breath HPI Narrative EAMON HUSTON, is a 64 F who presented to [facility] ED on 04/01/2025 with chest discomfort [...] NSTEMI. Will be admitted for further management. [facility] Medical History ESBL (extended spectrum beta-lactamase) [...] Reaction Status Date / Time sitagliptin (From [facility]) Allergy Severe Rash Verified 04/01/25 20:10 Rxmmrak-UFN-KkN Reductase Allergy Intermediate cramps Verified 04/01/25 20:10 Inhibitor (Kvdliht-Cmp-Djj Reductase Inhibitor) dapagliflozin (From [facility]) AdvReac Severe yeast Verified 04/01/25 20:10 [...] 40.6 L, Lymph % (Auto) 47.8 H, Sullivan % (Auto) 9.2, Eos % (Auto) 1.3, [...] edema. No sizable pleural effusion. Reading Location: [id number] Assessment & Plan Assessment/Plan (1) Acute non-ST elevation myocardial infarction (NSTEMI): PLAN: Plan Patient is a 64-year-old female who presented to [facility] ED on 04/01/2025 with chest discomfort [...] 75 minutes. Charges/Coding Visit Charges Inpatient E&M: 68131 Init Hosp L3 04/02/25 0506 <Electronically signed by Franko Cueto DO> Cosigner Signature (if applicable): CC: ESTEBAN Garcia; Dr. Franko Cueto DO~ Signed [facility] Work Phone: 1(928) 160-734907-10-2025 History and physical note [facility] Medical Records Department [address] [place] [address] H&P Exam - Hospitalist 04/01/25 2346 MR#: [id number] Acct: [id number] Name: EAMON HUSTON Rep #:[id number] : 1960 64 From: Franko daley DO PCP: ESTEBAN Castellanos Status:ADM IN Location: [place] [id number]- 1 HPI - General General Date of Admission: 04/02/25 Date of Service: 04/01/25 Chief Complaint: Chest discomfort and shortness of breath HPI Narrative EAMON HUSTON, is a 64 F who presented to [facility] ED on 04/01/2025 with chest discomfort [...] for NSTEMI. Will be admitted for furthermanagement. [facility] Medical History ESBL (extended spectrum beta-lactamase) [...] Januvia) Allergy Severe Rash Verified 04/01/25 20:10 Xdqraxe-LAD-CiL Reductase Allergy Intermediate cramps Verified 04/01/25 20:10 Inhibitor (Zvtbbqn-Mib-Qfn Reductase Inhibitor) dapagliflozin (From [facility]) AdvReac Severe yeast Verified 04/01/25 20:10 [...] 40.6 L, Lymph % (Auto) 47.8 H, Sullivan % (Auto) 9.2, Eos % (Auto) 1.3, [...] ABG results: ABG 04/01/25 23:05 Specimen Type LYAO Sample Site Not entered O2 % 2.0 VBG pH 7.39 VBG pO2 39 VBG HCO3 24 VBG Total CO2 25 VBG O2 Sat (Calc) 73 H VBG Base Excess -1 POC Mix VBG pCO2 Pt Tmp 39.8 L O2 Delivery Device Cannula Imaging Radiology Impression Chest X-Ray 04/01/25 20:21 IMPRESSION: Cardiomegaly with pulmonary edema. No sizable pleural effusion. Reading Location: [id number] Assessment & Plan Assessment/Plan (1) Acute non-ST elevation myocardial infarction (NSTEMI): PLAN: Plan Patient is a 64-year-old female who presented to [facility] ED on 04/01/2025 with chest discomfort [...] 75 minutes. Charges/Coding Visit Charges Inpatient E&M: 36207 Init Hosp L3 04/02/25 0506 Cosigner Signature (if applicable): CC: ESTEBAN Garcia; Dr. Franko Cueto, DO~ Signed [facility]07-10-2025 Discharge summary [facility] Note Date/Time April 02, 2025 12:0 7am [facility] Medical Records Department [address] [place] [address] Emergency Department Summary 04/01/25 MR#: [id number] Acct: [id number] Name: EAMON HUSTON Rep #:[id number] : [...] but states she feels warm right now. [facility] Medical History ESBL (extended spectrum beta-lactamase) [...] Sep) Allergy Severe Rash Verified 04/01/25 20:10 Ushwyud-MRE-ObH Reductase Allergy Intermediate cramps Verified 04/01/25 20:10 Inhibitor (Vjclgvf-Yzs-Uaf Reductase Inhibitor) dapagliflozin (From [facility]) AdvReac Severe yeast Verified 04/01/25 20:10 [...] 40.6 L Lymph % (Auto) 47.8 H Sullivan % (Auto) 9.2 Eos % (Auto) 1.3 [...] edema. No sizable pleural effusion. Reading Location: [facility] Rhythm Strip Rhythm Strip: Sinus Tach Rate: [...] Chief Complaint: Chest Pain ED Provider: Mago aJng Dx/Rx/DC Orders Clinical Impression: Acute non-ST elevation [...] Naima Garcia NP Referrals: Naima Garcia NP, RIB CUTTER-C [Primary Care Provider] - Print Language: Barbadian What to do if you have Problems For any increased pain, shortness of breath, bleeding, nausea or vomiting, chestpain, or any unexpected problems, contact your Primary Care Provider. Call [facility] ([phone]) or report to the closest Emergency Room. Call 911 if necessary. 04/02/256 <Electronically signed by Mago Jang DO> Cosigner Signature (if applicable): CC: RIB CUTTER-C Naima Garcia ~ Signed [facility] Work Phone: 1(858) 857-463007-10-2025 Discharge summary Author Mago Jang [facility] Note Date/Time April 02, 2025 12:0 7am [facility] Medical Records Department [address] [place] [address] Emergency Department Summary 04/01/25 MR#: [id number] Acct: [id number] Name: EAMON HUSTON Rep #:[id number] : 1960 64 From: Mago Danieslon PCP: ESTEBAN Castellanos Status:REG ER Location: ED [...] but states she feels warm right now. [facility] Medical History ESBL (extended spectrum beta-lactamase) [...] ) Allergy Severe Rash Verified 04/01/25 20:10 Xqillxv-JPC-EgD Reductase Allergy Intermediate cramps Verified 04/01/25 20:10 Inhibitor (Xongvvn-Fqj-Yyn Reductase Inhibitor) dapagliflozin (From [facility]) AdvReac Severe yeast Verified 04/01/25 20:10 Family [...] 40.6 L Lymph % (Auto) 47.8 H Sullivan % (Auto) 9.2 Eos % (Auto) 1.3 [...] edema. No sizable pleural effusion. Reading Location: [facility] Rhythm Strip Rhythm Strip: Sinus Tach Rate: [...] Naima Garcia NP Referrals: Naima Garcia NP, RIB CUTTER-C [Primary Care Provider] - Print Language: Barbadian What to do if you have Problems For any increased pain, shortness of breath, bleeding, nausea or vomiting, chestpain, or any unexpected problems, contact your Primary Care Provider. Call [facility] ([phone]) or report to the closest Emergency Room. Call 911 if necessary. 04/02/256 <Electronically signed by Mago Jang DO> Cosigner Signature (if applicable): CC: RIB CUTTER-Rangel Garcia ~ Signed [facility] Work Phone: 1(124) 205-341907-10-2025 Discharge summary [facility] Medical Records Department [address] [place] [address] Emergency Department Summary 04/01/25 MR#: [id number] Acct: [id number] Name: EAMON HUSTON Rep #:[id number] : [...] but states she feels warm right now. [facility] Medical History ESBL (extended spectrum beta-lactamase) [...] ) Allergy Severe Rash Verified 04/01/25 20:10 Idezwzu-ZKF-YeM Reductase Allergy Intermediate cramps Verified 04/01/25 20:10 Inhibitor (Wnyddts-Tap-Ptg Reductase Inhibitor) dapagliflozin (From [facility]) AdvReac Severe [...] a normal pH and a mildly low qVI9ojtqw is nonspecific. Case discussed with hospitalist for [...] 40.6 L Lymph % (Auto) 47.8 H Sullivan % (Auto) 9.2 Eos % (Auto) 1.3 [...] edema. No sizable pleural effusion. Reading Location: [facility] Rhythm Strip Rhythm Strip: Sinus Tach Rate: [...] Naima Garcia NP Referrals: Naima Garcia NP, RIB CUTTER-C [Primary Care Provider] - Print Language: Barbadian What to do if you have Problems For any increased pain, shortness of breath, bleeding, nausea or vomiting, chestpain, or any unexpected problems, contact your Primary Care Provider. Call [facility] ([phone]) or report tothe closest Emergency Room. Call 911 if necessary. 04/02/256 Cosigner Signature (if applicable): CC: RIB CUTTER-C Naima Garcia ~ Signed [facility]07-09-2025 Radiology Diagnostic study note [facility] Imaging Services [address] [place], [place] [address] Chest 1 View (Portable) MR#: [id number] Acct: [id number] Name: EAMON HUSTON Rep #: [id number] : 1960 F 64 From: Pedro Langford MD PCP: ESTEBAN Castellanos Status: REG ER Study:Chest 1 View (Portable) Date of Exam: 04/01/25 Exam# [id number] Ordering Dr: Rangel Jang DO PROCEDURE: CHEST [...] edema. No sizable pleural effusion. Reading Location: [id number] CC: ESTEBAN Garcia; Dr. Mago Jang, DO ~ Special Order Jeweler: Signed [facility]04-04-2025 Evaluation note* Diagnosis Onset Date Resolution [...] 03, 2025 chronic April 13, 2025 1:53pm [facility] Work Phone: 1(351) 597-247403-28-2025 Evaluation note* Diagnosis Onset Date Resolution Status [...] Acute non-ST elevation myocardial infarction (NSTEMI) inactive [facility] 2024 12:02am CAD (coronary artery disease) inacti ve April 02, 2025 12:02am Congestive heart failure inactive April 02, 2025 12:02am Biventricular automatic implantable cardioverter defibrillator in situ acute April 02, 2025 10:51am Diabetes type 2, uncontrolled chroni c April 06, 2025 5:44pm Acute non-ST elevation myocardial infarction (NSTEMI) inactive [facility] 2024 5:44pm HFrEF (heart failure with reduced ejection fraction) acute April 13, 2025 1:53pm [facility] Work Phone: 1(869) 959-464403-21-2025 Evaluation note* Diagnosis Onset Date Resolution Status [...] non-ST elevation myocardial infarction (NSTEMI) inactive [facility] 2024 12:02am CAD (coronary artery disease) inacti ve April 02, 2025 12:02am Congestive heart failure inactive April 02, 2025 12:02am Biventricular automatic implantable cardioverter defibrillator in situ acute April 02, 2025 10:51am Diabetes type 2, uncontrolled chroni c April 06, 2025 5:44pm Acute non-ST elevation myocardial infarction (NSTEMI) inactive [facility] 2024 5:44pm [facility] Work Phone: 1(370) 490-578903-18-2025 Evaluation note* Diagnosis Onset Date Resolution Status [...] 4:04pm Hypertension chronic March 20 025 4:04pm [facility] Work Phone: 1(162) 570-888603-18-2025 Evaluation note* Diagnosis Onset Date Resolution Status [...] disease) chroni c March 31, 2025 5:12pm [facility] Work Phone: 1(528) 278-590103-18-2025 Evaluation note* Diagnosis Onset Date Resolution Status [...] in situ acute April 02, 2025 10:51am [facility] Work Phone: 1(463) 771-701903-18-2025 Evaluation note* Diagnosis Onset Date Resolution Status [...] in situ acute April 02, 2025 10:51am [facility] Work Phone: 1(540) 131-246203-18-2025 Evaluation note* Diagnosis Onset Date Resolution Status [...] uncontrolled chroni c April 06, 2025 5:44pm [facility] Work Phone: 1(506) 384-461401-10-2025 Evaluation note* Diagnosis Onset Date Resolution Status [...] uncontrolled chroni c December 09, 2024 4:48pm [facility] Work Phone: 1(626) 734-245801-10-2025 Evaluation note* Diagnosis Onset Date Resolution Status [...] 2024 4:48pm Abscess acute December 12 2:57pm [facility] Work Phone: 1(418) 784-303304-01-2024 History of Present illness Narrative* Zainab Albrecht [...] PATIENT PRESENTS WITH AN IMPLANTABLE OR ATTACHED MATTRESS FILLER: No RADIOLOGY DEPARTMENT: General X-ray: Exam(s) Completed: Lower Extremity X- Ray(s): Foot, Left PERIPHERAL IV DATA: Not applicable SIGNED BY: RT Farhana(R) December 24, 2023 11:08 AM [facility] NoteHNO ID: [id number] Author: ZAINAB ALBRECHT RT(R) Service: ? Author [...] PATIENT PRESENTS WITH AN IMPLANTABLE OR ATTACHED MATTRESS FILLER: No RADIOLOGY DEPARTMENT: General X-ray: Exam(s) Completed: Lower Extremity X-Ray(s): Foot, Left PERIPHERAL IV DATA: Not applicable SIGNED BY: RT Farhana(R) December 24, 2023 11:08 [facility]01-05-2022 NoteHNO ID: [id number] Author: Narinder Parsons PA-C Service: ? Author Type: Physician Film Flat Inspector Type: Progress Notes Filed: 09/28/2021 7:15 PM [...] plan; her will drive her over to [facility] at this time. Report sent over via ER passport. [facility] Chronic HFrEF (heart failure with reduced ejection fraction) ([facility]) documented in this encounter [facility] Work Phone: Evaluation note* Diagnosis Onset Date Resolution Status Atrial fibrillation and flutter acute Congestive heart failure chr onic Diabetes type 2, uncontrolled chronic GERD (gastroesophageal reflux disease) chronic Hypertension [facility] Work Phone: Evaluation note* Diagnosis Onset Date Resolution Status Atrial fibrillation and flutter acute Diabetes type 2, uncontrolled chronic Hypertension [facility] Work Phone: Evaluation note* Diagnosis Onset Date Resolution Status Bone cyst of left foot acute Eructation acute Diabetes type 2, uncontrolled [facility] Work Phone: Hospital Discharge instructions* Instructions* Shantelle Flores APRN - CROP DUSTER HELPER - 08/16/2021 Internal Cardioverter Defibrillator [place] [...] in CPR. Call the Device Clinic at [phone] if you have any questions regarding your incision, defibrillator, or follow-up appointments. Call the Device Clinic at [phone] if you have signs of a rapid heart rhythm, if you hear a beeping tone or vibration from your defibrillator. Call the Device Clinic at [phone] or your physician if you experience a shock. Be calm and liedown if you are alone. If you feel as though you are going to pass out call [phone]. No lifting, pulling, pushing more than 5 [...] be gone by tomorrow. documented in this [facility] Work Phone: [facility] Work Phone: Hospital Discharge instructions Additional [...] through a diabetic diet. Take antibiotic as directed.[facility] Work Phone: Hospital Discharge instructionsAdditional Instructions [...] at follow-up (call office if any concerns [phone] and may leave voicemail if after hours). Walkin minutes 3 times daily, increase as tolerated. Driving: Resume in 7 days Sexual activity: Resume in 14 days Regular activity: Resume 14 days ADDITIONAL: --Your vitamin D level was low end normal range. We have started you on a daily oral vitamin D supplement. Please have repeat levels outpatient.[facility] Work Phone: Hospital Discharge instructionsAmbulatory Orders* Phase II, Outpatient Cardiac Rehab Location: None Selected [facility] Work Phone: Reason for referral (narrative)No reason for referral information availableWAshtabula [facility] Work Phone: Summary Purpose Family History Relationship [...] Documents on File Type Date Recorded Patient Publications Manager Expl anation ACP-Advance Directive ACP-Power of Marketing Development Representative Latest Code Status on File Code Status Date Activated Date Inactivated Comments Full Code 08/16/2021 6:38 AM Advance Directive Response Recorded Date/ Time Living Will No September 28 9:54pm Power of Marketing Development Representative No September 28 022 9:54pm Advance Directive Response Recorded Date/ Time Living Will No December 09, 2024 6:41pm Power of Marketing Development Representative No December 09 6:41pm Advance Directive Response Recorded Date/ Time Living Will No December 09, 2024 6:41pm Do you have a Healthcare Power of Marketing Development Representative? No December 09, 2024 6:41pm Advance Directive Response Recorded Date/ Time Living Will No December 09, 2024 6:41pm Do you have a Healthcare Power of Marketing Development Representative? No December 09, 2024 6:41pm Do you have a Healthcare Power of Marketing Development Representative? No April 01, 2025 8:19pm Advance Directive Response Recorded Date/ Time Living Will No December 09, 2024 6:41pm Do you have a Healthcare Power of Marketing Development Representative? No December 09, 2024 6:41pm Do you have a Healthcare Power of Marketing Development Representative? No April 02, 2025 3:33am Advance Directive Response Recorded Date/ Time Do you have a Healthcare Power of Marketing Development Representative? No April 02, 2025 3:33am Advance Directive Response Recorded Date/ Time Do you have a Healthcare Power of Marketing Development Representative? No April 02, 2025 3:33am Do you have a Healthcare Power of Marketing Development Representative? No April 21, 2025 1:52pm Chief Complaint [...] 2025 4:04pm GERD (gastroesophageal reflux disease) [facility] 2024 4:04pm Hypertension March 20, 2025 4:04 [...] 2025 4:04pm GERD (gastroesophageal reflux disease) [facility] 2024 4:04pm Hypertension March 20, 2025 4:04 [...] 2025 4:04pm GERD (gastroesophageal reflux disease) [facility] 2024 4:04pm Hypertension March 20, 2025 4:04 [...] DATE CREATED AUTHOR AUTHOR'S ORGANIZ ATION 12/14/2021 [facility] DATE CREATED AUTHOR AUTHOR'S ORGANIZ ATION 10/08/2024 [facility] DATE CREATED AUTHOR AUTHOR'S ORGANIZ ATION 04/14/2025 [facility] DATE CREATED AUTHOR AUTHOR'S ORGANIZ ATION 04/15/2025 [facility] Scheduled Active and Recently Administ ered [...] On Sun08/16/21 at 0700, For 1 dose, Relationship Banker to EP Lab, Pre-Procedure(Cath) 0745 (Given by Other Clinician - Provider: Mattie Coronel RN - Comment: given in EP lab prior to procedure by RECEIVING MANAGER) Continuous Medication Order 08/14/2021 08/15/2021 08/16/2021 [...] Care Teams (unrecognized sec tion and content) Paper Coater Relationship Specialty Start Date End Date Naima Garcia [address] [place] [address] PCP - General Nurse Practitioner 10/03/19 Paper Coater Relationship Specialty Start Date End Date Naima Garcia APRN.CNP [address] [id number] PCP - General Family Medicine 05/04/20 Team Status: Active Member Role Status Dates Naima Garcia NP RIB CUTTER-C Primary Care Provider Active Team Status: Inactive Member Role Status Dates Naima Garcia NP, NP-C Primary Care Pr ovider, Attending Provider, Referring Provider Active Team Status: Inactive Member Role Status Dates Naima Garcia NP RIB CUTTER-C Primary Care Provider, Attend ing Provider Active Paper Coater Relationship Specialty Start Date End Date Naima Garcia APRN.CROP DUSTER HELPER [address] [facility] [address] [place] [id number] PCP - General Family Medicine 05/04/20 Team Status: Inactive Member Role Status Dates Naima Garcia NP RIB CUTTER-C Primary Care Provider Active Start: October 03, 2024 End: October 03, 2024 Naima Garcia NP RIB CUTTER-C Attending Provider Active Start: October 03, 2024 End: October 03, 2024 Naima Garcia NP RIB CUTTER-C Referring Provider Active Start: October 03, 2024 End: October 03, 2024 Team Status: Active Member Role Status Dates Naima Garcia RIB CUTTER, RIB CUTTER-C Primary Care Provider Active Start: December 09, 2024 Naima Garcia RIB CUTTER, RIB CUTTER-C Attending Provider Active Start: December 09, 2024 Naima Garcia RIB CUTTER, RIB CUTTER-C Referring Provider Active Start: December 09, 2024 Team Status: Inactive Member Role Status Dates Naima Garcia RIB CUTTER, RIB CUTTER-C Primary Care Provider Active Start: December 09, 2024 End: December 09, 2024 Dr. Nik Bundy MD Emergency Provider Active Start: December 09, 2024 End: December 09, 2024 Team Status: Inactive Member Role Status Dates Naima Garcia RIB CUTTER, RIB CUTTER-C Primary Care Provider Active Start: December 09, 2024 End: December 09, 2024 Naima Garcia RIB CUTTER, RIB CUTTER-C Attending Provider Active Start: December 09, 2024 End: December 09, 2024 Naima Garcia RIB CUTTER, RIB CUTTER-C Referring Provider Active Start: December 09, 2024 End: December 09, 2024 Team Status: Inactive Member Role Status Dates Naima Garcia RIB CUTTER, RIB CUTTER-C Primary Care Provider Active Start: December 12, 2024 End: December 12, 2024 Naima Garcia RIB CUTTER, RIB CUTTER-C Attending Provider Active Start: December 12, 2024 End: December 12, 2024 Naima Garcia RIB CUTTER, RIB CUTTER-C Referring Provider Active Start: December 12, 2024 End: December 12, 2024 Team Status: Active Member Role/Relationship Status Dates Naima Garcia RIB CUTTER, RIB CUTTER-C Primary Care Provider Active Team Status: Inactive Member Role/Relationship Status Dates Naima Garcia RIB CUTTER, RIB CUTTER-C Primary Care Provider Active Start: December 09, 2024 End: December 09, 2024 Naima Garcia RIB CUTTER, RIB CUTTER-C Attending Provider Active Start: December 09, 2024 End: December 09, 2024 Naima Garcia RIB CUTTER, RIB CUTTER-C Referring Provider Active Start: December 09, 2024 End: December 09, 2024 Team Status: Inactive Member Role/Relationship Status Dates Naima Garcia RIB CUTTER, RIB CUTTER-C Primary Care Provider Active Start: December 09, 2024 End: December 09, 2024 Dr. Nik Bundy MD Attending Provider Active Start: December 09, 2024 End: December 09, 2024 Dr. Nik Bundy MD Emergency Provider Active Start: December 09, 2024 End: December 09, 2024 Team Status: Inactive Member Role/Relationship Status Dates Naima Garcia RIB CUTTER, RIB CUTTER-C Primary Care Provider Active Start: December 12, 2024 End: December 12, 2024 Naima Garcia RIB CUTTER, RIB CUTTER-C Attending Provider Active Start: December 12, 2024 End: December 12, 2024 Naima Garcia RIB CUTTER, RIB CUTTER-C Referring Provider Active Start: December 12, 2024 End: December 12, 2024 Team Status: Inactive Member Role/Relationship Status Dates Naima Garcia RIB CUTTER, RIB CUTTER-C Primary Care Provider Active Start: December 12, 2024 End: December 12, 2024 Naima Garcia RIB CUTTER, RIB CUTTER-C Attending Provider Active Start: December 12, 2024 End: December 12, 2024 Naima Garcia RIB CUTTER, RIB CUTTER-C Referring Provider Active Start: December 12, 2024 End: December 12, 2024 Team Status: Inactive Member Role/Relationship Status Dates Naima Garcia RIB CUTTER, RIB CUTTER-C Primary Care Provider Active Start: December 19, 2024 End: December 19, 2024 Naima Garcia RIB CUTTER, RIB CUTTER-C Attending Provider Active Start: December 19, 2024 End: December 19, 2024 Naima Garcia RIB CUTTER, RIB CUTTER-C Referring Provider Active Start: December 19, 2024 End: December 19, 2024 Team Status: Inactive Member Role/Relationship Status Dates Naima Garcia RIB CUTTER, RIB CUTTER-C Primary Care Provider Active Start: December 26, 2024 End: December 26, 2024 Naima Garcia RIB CUTTER, RIB CUTTER-C Attending Provider Active Start: December 26, 2024 End: December 26, 2024 Naima Garcia RIB CUTTER, RIB CUTTER-C Referring Provider Active Start: December 26, 2024 End: December 26, 2024 Team Status: Inactive Member Role/Relationship Status Dates Naima Garcia RIB CUTTER, RIB CUTTER-C Primary Care Provider Active Start: March 20, 2025 End: March 20, 2025 Naima Garcia RIB CUTTER, RIB CUTTER-C Attending Provider Active Start: March 20, 2025 End: March 20, 2025 Naima Garcia RIB CUTTER, RIB CUTTER-C Referring Provider Active Start: March 20, 2025 End: March 20, 2025 Team Status: Inactive Member Role/Relationship Status Dates Naima Garcia RIB CUTTER, RIB CUTTER-C Primary Care Provider Active Start: March 20, 2025 End: March 20, 2025 Naimaaaron KellyGarcia RIB CUTTER, RIB CUTTER-C Attending Provider Active Start: March 20, 2025 End: March 20, 2025 Naimaaaron KellyGarcia RIB CUTTER, RIB CUTTER-C Referring Provider Active Start: March 20, 2025 End: March 20, 2025 Team Status: Inactive Member Role/Relationship Status Dates Naimaaaron KellyGarcia RIB CUTTER, RIB CUTTER-C Primary Care Provider Active Start: March 31, 2025 End: March 31, 2025 Naimaaaron KellyGarcia RIB CUTTER, RIB CUTTER-C Attending Provider Active Start: March 31, 2025 End: March 31, 2025 Naima Garcia RIB CUTTER, RIB CUTTER-C Referring Provider Active Start: March 31, 2025 End: March 31, 2025 Team Status: Active Member Role/Relationship Status Dates Naimaaaron KellyGarcia RIB CUTTER, RIB CUTTER-C Primary Care Provider Active Start: March 31, 2025 Naimaaaron KellyGarcia RIB CUTTER, RIB CUTTER-C Attending Provider Active Start: March 31, 2025 Naima Garcia RIB CUTTER, RIB CUTTER-C Referring Provider Active Start: March 31, 2025 Team Status: Active Member Role/Relationship Status Dates Naimaaaron KellyGarcia RIB CUTTER, RIB CUTTER-C Primary Care Provider Active Start: April 02, 2025 Dr. Mago Jang DO Emergency Provider Active Start: April 02, 2025 Dr. Franko Cueto DO Admit Provider Active Start: April 02, 2025 Dr. Franko Cueto DO Attending Provider Active Start: April 02, 2025 Team Status: Active Member Role/Relationship Status Dates Naima Jose RIB CUTTER, RIB CUTTER-C Primary Care Provider Active Start: April 02, [...] Active Member Role/Relationship Status Dates Naima Jose RIB CUTTER, RIB CUTTER-C Primary Care Provider Active Start: April 02, [...] Inactive Member Role/Relationship Status Dates Naima Garcia RIB CUTTER, RIB CUTTER-C Primary Care Provider Active Start: April 02, 2025 End: April 02, 2025 Naima Garcia RIB CUTTER, RIB CUTTER-C Referring Provider Active Start: April 02, 2025 End: April 02, 2025 Raven Concepcion Attending Provider Active Start: 2024 End: April 02, 2025 Team Status: Inactive Member Role/Relationship Status Dates Naima Garcia RIB CUTTER, RIB CUTTER-C Primary Care Provider Active Start: April 02, [...] 02, 2025 End: April 03, 2025 Dr. Mnio Zhang MD Other Provider Active Start : April 02, 2025 End: April 03, 2025 Team Status: Active Member Role/Relationship Status Dates Naima Garcia RIB CUTTER, RIB CUTTER-C Primary Care Provider Active Start: April 03, [...] Active Member Role/Relationship Status Dates Naima Garcia RIB CUTTER, RIB CUTTER-C Primary Care Provider Active Start: April 06, 2025 Dr. Kalen Edwards MD Attending Provider Active S tart: April 06, 2025 Team Status: Inactive Member Role/Relationship Status Dates Naima Garcia RIB CUTTER, RIB CUTTER-C Primary Care Provider Active Start: March 31, 2025 End: March 31, 2025 Naima Garcia RIB CUTTER, RIB CUTTER-C Attending Provider Active Start: March 31, 2025 End: March 31, 2025 Naima Garcia RIB CUTTER, RIB CUTTER-C Referring Provider Active Start: March 31, 2025 End: March 31, 2025 Team Status: Active Member Role/Relationship Status Dates Naima Garcia RIB CUTTER, RIB CUTTER-C Primary Care Provider Active Start: April 06, 2025 Naima Garcia RIB CUTTER, RIB CUTTER-C Attending Provider Active Start: April 06, 2025 Naima Garcia RIB CUTTER, RIB CUTTER-C Referring Provider Active Start: April 06, 2025 Team Status: Inactive Member Role/Relationship Status Dates Naima Garcia RIB CUTTER, RIB CUTTER-C Primary Care Provider Active Start: December 12, 2024 End: December 12, 2024 Naima Garcia RIB CUTTER, RIB CUTTER-C Attending Provider Active Start: December 12, 2024 End: December 12, 2024 Naima Garcia RIB CUTTER, RIB CUTTER-C Referring Provider Active Start: December 12, 2024 End: December 12, 2024 Team Status: Inactive Member Role/Relationship Status Dates Naima Garcia RIB CUTTER, RIB CUTTER-C Primary Care Provider Active Start: December 12, 2024 End: December 12, 2024 Naima Garcia RIB CUTTER, RIB CUTTER-C Attending Provider Active Start: December 12, 2024 End: December 12, 2024 Naima Garcia RIB CUTTER, RIB CUTTER-C Referring Provider Active Start: December 12, 2024 End: December 12, 2024 Team Status: Inactive Member Role/Relationship Status Dates aNima Garcia RIB CUTTER, RIB CUTTER-C Primary Care Provider Active Start: December 19, 2024 End: December 19, 2024 Naima Garcia RIB CUTTER, RIB CUTTER-C Attending Provider Active Start: December 19, 2024 End: December 19, 2024 Naima Garcia RIB CUTTER, RIB CUTTER-C Referring Provider Active Start: December 19, 2024 End: December 19, 2024 Team Status: Inactive Member Role/Relationship Status Dates Naima Garcia RIB CUTTER, RIB CUTTER-C Primary Care Provider Active Start: December 26, 2024 End: December 26, 2024 Naima Garcia RIB CUTTER, RIB CUTTER-C Attending Provider Active Start: December 26, 2024 End: December 26, 2024 Naimaaaron Garcia RIB CUTTER, RIB CUTTER-C Referring Provider Active Start: December 26, 2024 End: December 26, 2024 Team Status: Inactive Member Role/Relationship Status Dates Naimaaaron Garcia RIB CUTTER, RIB CUTTER-C Primary Care Provider Active Start: March 20, 2025 End: March 20, 2025 Naimaaaron Garcia RIB CUTTER, RIB CUTTER-C Attending Provider Active Start: March 20, 2025 End: March 20, 2025 Naima Jose RIB CUTTER, RIB CUTTER-C Referring Provider Active Start: March 20, 2025 End: March 20, 2025 Team Status: Inactive Member Role/Relationship Status Dates Naima Jose RIB CUTTER, RIB CUTTER-C Primary Care Provider Active Start: March 20, 2025 End: March 20, 2025 Naima Jose RIB CUTTER, RIB CUTTER-C Attending Provider Active Start: March 20, 2025 End: March 20, 2025 Naima Jose RIB CUTTER, RIB CUTTER-C Referring Provider Active Start: March 20, 2025 End: March 20, 2025 Team Status: Inactive Member Role/Relationship Status Dates Naimaaaron Garcia RIB CUTTER, RIB CUTTER-C Primary Care Provider Active Start: March 31, 2025 End: March 31, 2025 Naima Jose RIB CUTTER, RIB CUTTER-C Attending Provider Active Start: March 31, 2025 End: March 31, 2025 Naima Garcia RIB CUTTER, RIB CUTTER-C Referring Provider Active Start: March 31, 2025 End: March 31, 2025 Team Status: Inactive Member Role/Relationship Status Dates Naima Jose RIB CUTTER, RIB CUTTER-C Primary Care Provider Active Start: March 31, 2025 End: March 31, 2025 Naima Jose RIB CUTTER, RIB CUTTER-C Attending Provider Active Start: March 31, 2025 End: March 31, 2025 Naima Garcia RIB CUTTER, RIB CUTTER-C Referring Provider Active Start: March 31, 2025 End: March 31, 2025 Team Status: Inactive Member Role/Relationship Status Dates Naima Jose RIB CUTTER, RIB CUTTER-C Primary Care Provider Active Start: April 02, [...] Active Member Role/Relationship Status Dates Naima Garcia RIB CUTTER, RIB CUTTER-C Primary Care Provider Active Start: April 02, [...] Inactive Member Role/Relationship Status Dates Naima Garcia RIB CUTTER, RIB CUTTER-C Primary Care Provider Active Start: April 02, 2025 End: April 02, 2025 Dr. Mino Zhang MD Attending Provider Active S tart: April 02, 2025 End: April 02, 2025 Team Status: Inactive Member Role/Relationship Status Dates Naima Garcia RIB CUTTER, RIB CUTTER-C Primary Care Provider Active Start: April 02, 2025 End: April 02, 2025 Naima Garcia RIB CUTTER, RIB CUTTER-C Referring Provider Active Start: April 02, 2025 End: April 02, 2025 Raven Concepcion Attending Provider Active Start: Nikki [email or web address] End: April 02, 2025 Team Status: Active Member Role/Relationship Status Dates Naima Garcia RIB CUTTER, RIB CUTTER-C Primary Care Provider Active Start: April 03, [...] Active Member Role/Relationship Status Dates Naima Garcia RIB CUTTER, RIB CUTTER-C Primary Care Provider Active Start: April 06, 2025 Dr. Kalen Edwards MD Attending Provider Active S tart: April 06, 2025 Team Status: Inactive Member Role/Relationship Status Dates Naimaaaron Garcia RIB CUTTER, RIB CUTTER-C Primary Care Provider Active Start: April 06, 2025 End: April 06, 2025 Naima Garcia RIB CUTTER, RIB CUTTER-C Attending Provider Active Start: April 06, 2025 End: April 06, 2025 Naima Jose RIB CUTTER, RIB CUTTER-C Referring Provider Active Start: April 06, 2025 End: April 06, 2025 Team Status: Inactive Member Role/Relationship Status Dates Naimaaaron Garcia RIB CUTTER, RIB CUTTER-C Primary Care Provider Active Start: December 19, 2024 End: December 19, 2024 Naimaaaron Garcia RIB CUTTER, RIB CUTTER-C Attending Provider Active Start: December 19, 2024 End: December 19, 2024 Naima Jose RIB CUTTER, RIB CUTTER-C Referring Provider Active Start: December 19, 2024 End: December 19, 2024 Team Status: Inactive Member Role/Relationship Status Dates Naimaaaron Garcia RIB CUTTER, RIB CUTTER-C Primary Care Provider Active Start: December 26, 2024 End: December 26, 2024 Naima Garcia RIB CUTTER, RIB CUTTER-C Attending Provider Active Start: December 26, 2024 End: December 26, 2024 Naima Jose RIB CUTTER, RIB CUTTER-C Referring Provider Active Start: December 26, 2024 End: December 26, 2024 Team Status: Inactive Member Role/Relationship Status Dates Naimaaaron Garcia RIB CUTTER, RIB CUTTER-C Primary Care Provider Active Start: March 20, 2025 End: March 20, 2025 Naima Garcia RIB CUTTER, RIB CUTTER-C Attending Provider Active Start: March 20, 2025 End: March 20, 2025 Naima Garcia RIB CUTTER, RIB CUTTER-C Referring Provider Active Start: March 20, 2025 End: March 20, 2025 Team Status: Inactive Member Role/Relationship Status Dates Naimaaaron Garcia RIB CUTTER, RIB CUTTER-C Primary Care Provider Active Start: March 20, 2025 End: March 20, 2025 Naima Garcia RIB CUTTER, RIB CUTTER-C Attending Provider Active Start: March 20, 2025 End: March 20, 2025 Naima Garcia RIB CUTTER, RIB CUTTER-C Referring Provider Active Start: March 20, 2025 End: March 20, 2025 Team Status: Inactive Member Role/Relationship Status Dates Naima Garcia RIB CUTTER, RIB CUTTER-C Primary Care Provider Active Start: March 31, 2025 End: March 31, 2025 Naima Garcia RIB CUTTER, RIB CUTTER-C Attending Provider Active Start: March 31, 2025 End: March 31, 2025 Naima Garcia RIB CUTTER, RIB CUTTER-C Referring Provider Active Start: March 31, 2025 End: March 31, 2025 Team Status: Inactive Member Role/Relationship Status Dates Naima Garcia RIB CUTTER, RIB CUTTER-C Primary Care Provider Active Start: March 31, 2025 End: March 31, 2025 Naima Jose RIB CUTTER, RIB CUTTER-C Attending Provider Active Start: March 31, 2025 End: March 31, 2025 Naima Garcia RIB CUTTER, RIB CUTTER-C Referring Provider Active Start: March 31, 2025 End: March 31, 2025 Team Status: Inactive Member Role/Relationship Status Dates Naima Garcia RIB CUTTER, RIB CUTTER-C Primary Care Provider Active Start: April 02, [...] Active Member Role/Relationship Status Dates Naima Garcia RIB CUTTER, RIB CUTTER-C Primary Care Provider Active Start: April 02, [...] St art: April 02, 2025 Dr. Mino hZang MD Other Provider Active Start : April 02, 2025 Team Status: Inactive Member Role/Relationship Status Dates Naima Garcia RIB CUTTER, RIB CUTTER-C Primary Care Provider Active Start: April 02, 2025 End: April 02, 2025 Dr. Mino Zhang MD Attending Provider Active S tart: April 02, 2025 End: April 02, 2025 Team Status: Inactive Member Role/Relationship Status Dates Naima Garcia RIB CUTTER, RIB CUTTER-C Primary Care Provider Active Start: April 02, 2025 End: April 02, 2025 Naima Garcia RIB CUTTER, RIB CUTTER-C Referring Provider Active Start: April 02, 2025 End: April 02, 2025 Raven Concepcion Attending Provider Active Start: 2024 End: April 02, 2025 Team Status: Active Member Role/Relationship Status Dates Naima Garcia RIB CUTTER, RIB CUTTER-C Primary Care Provider Active Start: April 03, [...] Active Member Role/Relationship Status Dates Naima Garcia RIB CUTTER, RIB CUTTER-C Primary Care Provider Active Start: April 06, 2025 Dr. Kalen Edwards MD Attending Provider Active S tart: April 06, 2025 Team Status: Inactive Member Role/Relationship Status Dates Naima Garcia RIB CUTTER, RIB CUTTER-C Primary Care Provider Active Start: April 06, 2025 End: April 06, 2025 Naima Garcia RIB CUTTER, RIB CUTTER-C Attending Provider Active Start: April 06, 2025 End: April 06, 2025 Naima Garcia RIB CUTTER, RIB CUTTER-C Referring Provider Active Start: April 06, 2025 End: April 06, 2025 Team Status: Inactive Member Role/Relationship Status Dates Naima Garcia RIB CUTTER, RIB CUTTER-C Primary Care Provider Active Start: April 13, 2025 End: April 13, 2025 Naima Garcia RIB CUTTER, RIB CUTTER-C Referring Provider Active Start: April 13, 2025 End: April 13, 2025 Tamanna Guerra RIB CUTTER, RIB CUTTER-C Attending Provider Active Start: April 13, 2025 End: April 13, 2025 Team Status: Inactive Member Role/Relationship Status Dates Naiam Garcia RIB CUTTER, RIB CUTTER-C Primary Care Provider Active Start: December 26, 2024 End: December 26, 2024 Naima Jose RIB CUTTER, RIB CUTTER-C Attending Provider Active Start: December 26, 2024 End: December 26, 2024 Naima Garcia RIB CUTTER, RIB CUTTER-C Referring Provider Active Start: December 26, 2024 End: December 26, 2024 Team Status: Inactive Member Role/Relationship Status Dates Naima Garcia RIB CUTTER, RIB CUTTER-C Primary Care Provider Active Start: March 20, 2025 End: March 20, 2025 Naima Garcia RIB CUTTER, RIB CUTTER-C Attending Provider Active Start: March 20, 2025 End: March 20, 2025 Naima Jose RIB CUTTER, RIB CUTTER-C Referring Provider Active Start: March 20, 2025 End: March 20, 2025 Team Status: Inactive Member Role/Relationship Status Dates Naima Garcia RIB CUTTER, RIB CUTTER-C Primary Care Provider Active Start: March 31, 2025 End: March 31, 2025 Naima Jose RIB CUTTER, RIB CUTTER-C Attending Provider Active Start: March 31, 2025 End: March 31, 2025 Naima Garcia RIB CUTTER, RIB CUTTER-C Referring Provider Active Start: March 31, 2025 End: March 31, 2025 Team Status: Inactive Member Role/Relationship Status Dates Naima Garcia RIB CUTTER, RIB CUTTER-C Primary Care Provider Active Start: April 02, [...] Active Member Role/Relationship Status Dates Naima Garcia RIB CUTTER, RIB CUTTER-C Primary Care Provider Active Start: April 02, [...] Inactive Member Role/Relationship Status Dates Naima Garcia RIB CUTTER, RIB CUTTER-C Primary Care Provider Active Start: April 02, 2025 End: April 02, 2025 Dr. Mino Zhang MD Attending Provider Active S tart: April 02, 2025 End: April 02, 2025 Team Status: Inactive Member Role/Relationship Status Dates Naima Garcia RIB CUTTER, RIB CUTTER-C Primary Care Provider Active Start: April 02, 2025 End: April 02, 2025 Naima Garcia RIB CUTTER, RIB CUTTER-C Referring Provider Active Start: April 02, 2025 End: April 02, 2025 Raven Concepcion Attending Provider Active Start: Nikki 2024 End: April 02, 2025 Team Status: Active Member Role/Relationship Status Dates Naima Garcia RIB CUTTER, RIB CUTTER-C Primary Care Provider Active Start: April 03, [...] Member Role/Relationship Status Dates Naima Garcia NP, RIB CUTTER-C Primary Care Provider Active Start: April 06, 2025 Dr. Kalen Edwards MD Attending Provider Active S tart: April 06, 2025 Team Status: Inactive Member Role/Relationship Status Dates Naima Kellyson RIB CUTTER, RIB CUTTER-C Primary Care Provider Active Start: April 06, 2025 End: April 06, 2025 Naima Garcia RIB CUTTER, RIB CUTTER-C Attending Provider Active Start: April 06, 2025 End: April 06, 2025 Naima Garcia RIB CUTTER, RIB CUTTER-C Referring Provider Active Start: April 06, 2025 End: April 06, 2025 Team Status: Inactive Member Role/Relationship Status Dates Naima Garcia RIB CUTTER, RIB CUTTER-C Primary Care Provider Active Start: April 13, 2025 End: April 13, 2025 Naima Garcia RIB CUTTER, RIB CUTTER-C Referring Provider Active Start: April 13, 2025 End: April 13, 2025 Tamanna Guerra RIB CUTTER, RIB CUTTER-C Attending Provider Active Start: April 13, 2025 End: April 13, 2025 Team Status: Active Member Role/Relationship Status Dates Naima Garcia RIB CUTTER, RIB CUTTER-C Primary Care Provider Active Start: April 21, [...] or prosecute any alcohol or drug abuse patient.[facility] the event this information is protected by the Federal Confidentiality of Alcohol and Drug Abuse Patient Records regulations: The Federal rules restrict any use of the information to criminally investigate or prosecute any alcohol or drug abuse patient.[facility] FOR RECORDS PERTAINING TO PATIENTS WHO ARE [...] BE BASED ON THE PRIMARY CLINICAL RECORDS. [facility] [employer] [facility]. provides no warranty or guarantee of the accuracy or completeness of information in this document.
[2025-04-22 03:16] VITALS: BMI 33.5
[2025-04-22 03:35] VITALS: BP 103/62; PULSE 87; RESP 18; TEMP 36.4; O2SAT 94
[2025-04-22 06:06] LABS: Hematocrit 43.9 % (37-47); Hemoglobin 14.9 g/dL (12.0-15.0); Mean Corp Hgb Conc 33.9 g/dL (32-36); Mean Corpuscular Volume 90.1 fL (81-99); Mean Platelet Vol. 12.4 fl (6.2-12.0); Platelet Count 194 K/mm3 (150-450); RBC Distribution Width CV 13.2 % (11.6-14.6); RBC Distribution Width SD 43.7 fl (35.1-43.9); Red Blood Count 4.87 M/mm3 (4.2-5.4); White Blood Count 7.2 K/mm3 (4.4-11.0)
[2025-04-22 06:31] LABS: Anion Gap 12 (5-15); BUN 14 mg/dL (4-19); BUN/Creat Ratio 25.1 RATIO (10-20); Calcium,Total 9.2 mg/dL (7.6-11.0); Carbon Dioxide 22.5 mmol/L (21.0-32.0); Chloride 103 mmol/L (98-108); Estimated Creatinine Clearance 112.31 ml/min (50-250); Glucose 252 mg/dL (70-99); Potassium 4.0 mmol/L (3.3-5.1)
[2025-04-22 07:58] VITALS: O2SAT 94; O2SAT 95
[2025-04-22 08:22] VITALS: BP 101/62; PULSE 91; RESP 18; TEMP 36.7; O2SAT 95
[2025-04-22 08:26] VITALS: PULSE 91
[2025-04-22] MEDS: Insulin Glargine-YFGN 100 UNIT/ML Pen 15 UNIT SC (08:27)
--- NOTE | 2025-04-22 08:27 | PCM.DC ---
Discharge Instructions DC O2, CPAP, BIPAP needs Home O2 Discharge instructions: No Dressing / Incision Discharge Activity: Return to Normal Activity Dressing / Incision Call your doctor if you observe: Fever of 101 or Higher, Shortness of breath, Dizziness, Fainting spells, Swelling in the ankles, Chest pain and Increased palpitations (irregular heartbeat) Follow Up Care Test Results: Test results from this visit will be discussed in further detail at your follow-up appointment, if applicable. Discharge Plan Admission Admit Date/Time: 04/21/25 18:33 Attending Provider: Federico Chavarria Primary Care Provider: Nyla Garcia NP Consulting Providers: Franko Cueto Additional Instructions / Restrictions: Went home if you develop significant shortness of breath or leg swelling or you gained several pounds in a day or 2, take an extra Lasix and call your primary care doctor or administrative support technician Discharge Orders/Prescriptions Prescriptions: Continued clopidogrel [Plavix] 75 mg tablet 75 mg PO QDAY Qty: 94 3RF Rx Instructions: You will take 4 tablets on day one, and then one tablet daily. cholecalciferol (vitamin D3) [Vitamin D3] 10 mcg (400 unit) capsule 10 mcg PO DAILY 30 Days Qty: 30 0RF (DME) OneTouch Ultra Test Strip See Rx Instructions .Route Qty: 100 12RF Rx Instructions: As directed (DME) lancets [E-Z Ject Lancets] 30 gauge misc See Rx Instructions .Route Qty: 100 3RF Rx Instructions: As directed digoxin 125 mcg (0.125 mg) tablet 125 mcg PO DAILY Qty: 30 12RF losartan 50 mg tablet 50 mg PO DAILY Qty: 30 12RF metformin 850 mg tablet 850 mg PO BID Qty: 60 12RF metoprolol succinate 100 mg tablet extended release 24 hr 100 mg PO DAILY Qty: 30 12RF nitroglycerin 0.4 mg tablet, sublingual 0.4 mg SUBLINGUAL Q5-15M PRN (Reason: chest pain) Qty: 30 12RF Rx Instructions: until response; do not exceed 3 doses per episode omeprazole 40 mg capsule,delayed release(DR/EC) 40 mg PO DAILY PRN (Reason: GERD) Qty: 30 12RF aspirin 81 mg Tablet,Chewable 81 mg PO BREAKFAST 30 Days Qty: 30 0RF ezetimibe 10 mg Tablet 10 mg PO DAILY 30 Days Qty: 30 0RF insulin glargine-yfgn 100 unit/mL (3 mL) Insulin Pen 15 unit subcut QHS 30 Days Qty: 4.5 0RF Rx Instructions: Please provide enough for 1 month supply. insulin lispro [Humalog KwikPen Insulin] 100 unit/mL Insulin Pen See Protocol subcut ACHS Qty: 15 0RF Protocol: 4. Sliding Scale Insulin High-Med Dosing Condition: 150-199 mg/dl = 2 units Condition: 200-259 mg/dl = 4 units Condition: 260-324 mg/dl = 6 units Condition: 325-374 mg/dl = 8 units Condition: 375-409 mg/dl = 10 units Condition: 410-449 mg/dl = 11 units Condition: Greater than 449 call physician Protocol Text: Suggested for: - Patients on Total Daily Insulin Dose of 56-80 units - Patient who are known to be insulin resistant or septic HIGH MEDIUM DOSING ALGORITHM Rx Instructions: Please provide enough for 1 month supply. spironolactone 25 mg tablet 12.5 mg PO DAILY 30 Days Qty: 15 0RF Rx Instructions: Hold for SBP < 110 rosuvastatin [Crestor] 20 mg tablet 20 mg PO DAILY 30 Days Qty: 30 0RF furosemide 20 mg tablet 20 mg PO DAILY Qty: 30 12RF Osteo Bi-Flex Triple Strength 750 mg-644 mg- 30 mg-1 mg tablet 2 tab PO DAILY Referrals / Follow Up: Nyla Garcia NP, [facility] [Primary Care Provider] - Within 1 Week Disposition Disposition (needs filled in before D/C Order can be placed): Home, Self Care
--- NOTE | 2025-04-22 09:26 | PHA.DC.MR.R ---
Pharmacy ID Med Reconciliation Pharmacy Service has performed discharge medication reconciliation for this patient. The patient's discharge medication list was reviewed for discrepancies and discrepancies were resolved. Medications at Discharge Home Medications blood sugar diagnostic (OneTouch Ultra Test strips) #100 ea 12/21/23 lancets 30 gauge (E-Z Ject Lancets) #100 ea 12/21/23 digoxin 125 mcg (0.125 mg) tablet 125 mcg PO DAILY heart #30 tabs 03/20/25 losartan 50 mg tablet 50 mg PO DAILY bp #30 tabs 03/20/25 metformin 850 mg tablet 850 mg PO BID diabetes #60 tabs 03/20/25 metoprolol succinate 100 mg tablet,extended release 24 hr 100 mg PO DAILY heart #30 tabs 03/20/25 nitroglycerin 0.4 mg sublingual tablet 0.4 mg sublingual Q5-15M PRN chest pain #30 tabs 03/20/25 omeprazole 40 mg capsule,delayed release 40 mg PO DAILY PRN GERD #30 caps 03/20/25 aspirin 81 mg chewable tablet 81 mg PO BREAKFAST heart health 30 days #30 tabs 04/02/25 ezetimibe 10 mg tablet 10 mg PO DAILY cholesterol 30 days #30 tabs 04/02/25 furosemide 20 mg tablet 20 mg PO DAILY Swelling #30 tabs 04/02/25 insulin glargine-yfgn 100 unit/mL (3 mL) subcutaneous pen 15 unit (0.15 mL) subcut QHS diabetes 30 days #4.5 mL 04/02/25 insulin lispro 100 unit/mL subcutaneous pen (Humalog KwikPen (U-100) Insulin) See Protocol subcut ACHS diabetes #15 mL 04/02/25 rosuvastatin 20 mg tablet (Crestor) 20 mg PO DAILY cholesterol 30 days #30 tabs 04/02/25 spironolactone 25 mg tablet 12.5 mg (1/2 x 25 mg) PO DAILY diuretic 30 days #15 tabs 04/02/25 cholecalciferol (vitamin D3) 10 mcg (400 unit) capsule (Vitamin D3) 10 mcg PO DAILY vitamin 30 days #30 caps 04/13/25 clopidogrel 75 mg tablet (Plavix) 75 mg PO QDAY anti platelet #94 tabs 04/13/25 glucosamine 750 [id number]-kpo no1 644 mg-C 30 mg-mar 1 mg tablet (Osteo Bi-Flex Triple Strength) 2 tab PO DAILY supplement 04/21/25
[2025-04-22 09:38] VITALS: BP 104/57; PULSE 96; RESP 18; TEMP 36.7; O2SAT 94
[2025-04-22 09:41] VITALS: PULSE 96
[2025-04-22] MEDS: Metoprolol(XL)Succ 100 MG Tablet PO (09:41)
--- NOTE | 2025-04-22 10:01 | DS.PCM_ITS ---
Providers Date of Admission: 04/21/25 Primary Care Physician: ANGEL CastellanosC Reason For Visit: MILD FLASH PULMONARY EDEMA W/ HYPOXIA W/ EXERTION Diagnosis Discharge Diagnosis (1) Flash pulmonary edema: Status: Acute Code(s): J81.0 - Acute pulmonary edema Medications at Discharge Home Medications blood sugar diagnostic ([employer] Ultra Test strips) #100 ea 12/21/23 lancets 30 gauge (E-Z Ject Lancets) #100 ea 12/21/23 digoxin 125 mcg (0.125 mg) tablet 125 mcg PO DAILY heart #30 tabs 03/20/25 losartan 50 mg tablet 50 mg PO DAILY bp #30 tabs 03/20/25 metformin 850 mg tablet 850 mg PO BID diabetes #60 tabs 03/20/25 metoprolol succinate 100 mg tablet,extended release 24 hr 100 mg PO DAILY heart #30 tabs 03/20/25 nitroglycerin 0.4 mg sublingual tablet 0.4 mg sublingual Q5-15M PRN chest pain #30 tabs 03/20/25 omeprazole 40 mg capsule,delayed release 40 mg PO DAILY PRN GERD #30 caps 03/20/25 aspirin 81 mg chewable tablet 81 mg PO BREAKFAST heart health 30 days #30 tabs 04/02/25 ezetimibe 10 mg tablet 10 mg PO DAILY cholesterol 30 days #30 tabs 04/02/25 furosemide 20 mg tablet 20 mg PO DAILY Swelling #30 tabs 04/02/25 insulin glargine-yfgn 100 unit/mL (3 mL) subcutaneous pen 15 unit (0.15 mL) subcut QHS diabetes 30 days #4.5 mL 04/02/25 insulin lispro 100 unit/mL subcutaneous pen (Humalog KwikPen (U-100) Insulin) See Protocol subcut ACHS diabetes #15 mL 04/02/25 rosuvastatin 20 mg tablet (Crestor) 20 mg PO DAILY cholesterol 30 days #30 tabs 04/02/25 spironolactone 25 mg tablet 12.5 mg (1/2 x 25 mg) PO DAILY diuretic 30 days #15 tabs 04/02/25 cholecalciferol (vitamin D3) 10 mcg (400 unit) capsule (Vitamin D3) 10 mcg PO DAILY vitamin 30 days #30 caps 04/13/25 clopidogrel 75 mg tablet (Plavix) 75 mg PO QDAY anti platelet #94 tabs 04/13/25 glucosamine 750 kk-hssfttjxtli-pkz no1 644 mg-C 30 mg-mar 1 mg tablet (Osteo Bi-Flex Triple Strength) 2 tab PO DAILY supplement 04/21/25 Hospital Course Operations None Procedures None Summary of Care Provided Minutes Spent on Discharge: 33 Hospital Course: Per HPI: EAMON SCHWAB, is a 64 F who presented to [facility] ED on 04/21/2025 with acute onset chest pressure, shortness of breath and cough. Patient was recently hospitalized here from 04/01-04/03. She presented then with chest discomfort and shortness of breath. Was found to have elevated troponins and chest x-ray showed cardiomegaly with pulmonary edema. Had left heart cath done that showed three-vessel disease with 80% lesion in mid RCA, 95% stenosis in mid left circumflex and 80% mid LAD and 70% distal LAD lesions. Had stenting x 1 down to the left circumflex with plan for staged PCI to the LAD. This is currently scheduled for April 29. Echo during that hospitalization showed EF 25%. 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 She was discharged on Toprol, losartan, Lasix and digoxin. Patient states she had been doing well until earlier this afternoon. She got into a verbal argument with her neighbor then and shortly afterward developed chest pressure and shortness of breath. She then began to have a cough with pink frothy sputum production, so she came in for further evaluation. In the ED she had sinus tachycardia to the 110s and was satting 88% on room air at rest. She was only mildly hypertensive with systolic BP in the 130s to 140s. CTA chest showed no PE but did show cardiomegaly with pulmonary edema and trace bilateral pleural effusions. BNP 1818, which was worsened from BNP on 04/01 that was 1180. However, otherwise appeared hemoconcentrated on CBC and BMP with mild creatinine bump up to 0.69 from baseline around 0.5. She was given a dose of IV Lasix 40 mg in the ED with good urine output. Her oxygen saturation improved to the low 90s on room air at rest but dropped to the mid 80s on room air with exertion, so hospitalist was contacted for admission. I saw the patient at bedside in the ED, was present. Patient was mildly fatigued appearing but otherwise sitting back comfortably in bed, conversing normally, in no acute distress. She reported feeling improved from earlier today but still not back to her baseline. Denies any shortness of breath at rest currently. No other acute concerns at this time. Will be admitted for further management. Hospital Course: 1. Flash pulmonary edema with hypoxia on exertion?64-year-old female with a recent history of coronary artery disease and a stent placed on her previous admission in early March presented to the hospital for increasing shortness of breath. She says that it started when she had an argument with her neighbor. She had a stent placed to her circumflex on 04/02/2025 with a secondary stent to be placed in her LAD on 04/29/2025. Echocardiogram on her previous admission demonstrated an EF of 25% with moderate pulmonary hypertension and severely dilated left ventricle. She was given a dose of IV Lasix in the ER and then transition to her home oral dose of 20 mg of Lasix p.o. Today she was evaluated and was not hypoxic on room air and did not require any oxygen with ambulation. She said that she felt much better and requested discharge home. We discussed the plan for discharge and she expressed understanding of the risks and benefits of going home and would like to go home today. I discussed with her the need to take an extra Lasix if she were to notice any weight gain or increasing shortness of breath and to then call her primary care doctor or her blending line attendant. Otherwise we will continue with all of her home blood pressure medications as well as her aspirin and Plavix given her recent stenting. 2. Coronary artery disease status post stent, essential hypertension, hyperlipidemia, type 2 diabetes, GERD are all chronic medical conditions which complicate her care. Her home medications were continued where appropriate Physical Exam Narrative General: Alert, Oriented x3, Cooperative, No apparent distress HEENT: Atraumatic, PERRLA, EOMI, Normocephalic Oral: Moist Mucosa Neck: Supple, No JVD Lungs: Diminished, Normal air movement, No rhonchi, No wheeze, No rales Cardiovascular: Regular rate, Regular Rhythm, Normal S1, Normal S2, No murmurs Abdomen: Soft, Non Tender, Non-Distended, No Hepato-splenomegaly Extremities: No edema, Capillary Refill Less than 3 Seconds Skin: No rashes, No breakdown Musculoskeletal: No Tenderness to Palpation of Joints or Extremities Neurological: No focal neurological deficits, Motor Exam 5/5 strength throughout, Sensory exam intact to light touch and pain Psych/Mental Status: Normal Affect, Appropriate Weight / BMI Weight Weight: 195 lb 8.8 oz Body Mass Index (BMI) 33.5 ABG / Lab / Microbiology Data 04/22/25 05:41 04/22/25 05:41 Laboratory: Laboratory Results - last 24 hr 04/21/25 13:52: WBC 13.9 H, RBC 5.44 H, Hgb 16.3 H, Hct 49.5 H, MCV 91.0, MCH 30.0, MCHC 32.9, RDW Std Deviation 43.5, RDW Coeff of Cally 13.1, Plt Count 237, M PV 12.9 H, Immature Gran % (Auto) 0.400, Neut % (Auto) 73.2 H, Lymph % (Auto) 18.2 L, [place] % (Auto) 7.2, Eos % (Auto) 0.3, Baso % (Auto) 0.7, Absolute Neuts (auto) 10.2 H, Absolute Lymphs (auto) 2.53, Nucleated RBC % 0, PT 12.9, INR 1.0, APTT 27.2, D-Dimer Quant (PE/DVT) 0.98 H*, Sodium 135, Potassium 4.1, Chloride 99, Carbon Dioxide 18.1 L, Anion Gap 18 H, BUN 9, Creatinine 0.69 L, Estim Creat Clear Calc 97.34, Est GFR (MDRD) Non-Af 98, BUN/Creatinine Ratio 13.6, Glucose 320 H, Calcium 9.3, Magnesium 1.8, Troponin T High Sens 26 H D, NT pro BNP II 1818 H 04/21/25 15:56: Troponin T Hi Sens 2 Hr 36 H 04/21/25 17:53: Troponin T Hi Sens 4Hr 36 H 04/21/25 21:16: POC Glucose 268 H 04/22/25 05:41: WBC 7.2, RBC 4.87, Hgb 14.9, Hct 43.9, MCV 90.1, MCH 30.6, MCHC 33.9, RDW Std Deviation 43.7, RDW Coeff of Cally 13.2, Plt Count 194, MPV 12.4 H, Sodium 137, Potassium 4.0, Chloride 103, Carbon Dioxide 22.5, Anion Gap 12, BUN 14, Creatinine 0.56 L, Estim Creat Clear Calc 112.31, Est GFR (MDRD) Non-Af 103, BUN/Creatinine Ratio 25.1 H, Glucose 252 H, Calcium 9.2 04/22/25 07:44: POC Glucose 261 H Radiography Diagnostic Testing: Radiology Impression Chest X-Ray 04/21/25 14:20 IMPRESSION: Cardiomegaly with mild congestion. Reading Location: [facility] Chest CTA 04/21/25 14:47 IMPRESSION: No pulmonary arterial emboli identified. Cardiomegaly with pulmonary edema and trace bilateral pleural effusions. Reading Location: [facility] D/C Instructions Call your doctor if you observe: Fever of 101 or Higher, Shortness of breath, Dizziness, Fainting spells, Swelling in the ankles, Chest pain and Increased palpitations (irregular heartbeat) DC O2, CPAP, BIPAP Needs Home O2 Discharge instructions: No Meaningful Use Info Meaningful Use Meaningful Use Diagnoses (Choose all that apply): None applicable Discharge Plan Admission Admit Date/Time: 04/21/25 18:33 Attending Provider: Federico Chavarria Primary Care Provider: Nyla Garcia NP Consulting Providers: Franko Cueto Instructions Additional Instructions / Restrictions: Went home if you develop significant shortness of breath or leg swelling or you gained several pounds in a day or 2, take an extra Lasix and call your primary care doctor or blending line attendant Discharge Orders/Prescriptions Prescriptions: Continued clopidogrel [Plavix] 75 mg tablet 75 mg PO QDAY Qty: 94 3RF Rx Instructions: You will take 4 tablets on day one, and then one tablet daily. cholecalciferol (vitamin D3) [Vitamin D3] 10 mcg (400 unit) capsule 10 mcg PO DAILY 30 Days Qty: 30 0RF (DME) OneTouch Ultra Test Strip See Rx Instructions .Route Qty: 100 12RF Rx Instructions: As directed (DME) lancets [E-Z Ject Lancets] 30 gauge misc See Rx Instructions .Route Qty: 100 3RF Rx Instructions: As directed digoxin 125 mcg (0.125 mg) tablet 125 mcg PO DAILY Qty: 30 12RF losartan 50 mg tablet 50 mg PO DAILY Qty: 30 12RF metformin 850 mg tablet 850 mg PO BID Qty: 60 12RF metoprolol succinate 100 mg tablet extended release 24 hr 100 mg PO DAILY Qty: 30 12RF nitroglycerin 0.4 mg tablet, sublingual 0.4 mg SUBLINGUAL Q5-15M PRN (Reason: chest pain) Qty: 30 12RF Rx Instructions: until response; do not exceed 3 doses per episode omeprazole 40 mg capsule,delayed release(DR/EC) 40 mg PO DAILY PRN (Reason: GERD) Qty: 30 12RF aspirin 81 mg Tablet,Chewable 81 mg PO BREAKFAST 30 Days Qty: 30 0RF ezetimibe 10 mg Tablet 10 mg PO DAILY 30 Days Qty: 30 0RF insulin glargine-yfgn 100 unit/mL (3 mL) Insulin Pen 15 unit subcut QHS 30 Days Qty: 4.5 0RF Rx Instructions: Please provide enough for 1 month supply. insulin lispro [Humalog KwikPen Insulin] 100 unit/mL Insulin Pen See Protocol subcut ACHS Qty: 15 0RF Protocol: 4. Sliding Scale Insulin High-Med Dosing Condition: 150-199 mg/dl = 2 units Condition: 200-259 mg/dl = 4 units Condition: 260-324 mg/dl = 6 units Condition: 325-374 mg/dl = 8 units Condition: 375-409 mg/dl = 10 units Condition: 410-449 mg/dl = 11 units Condition: Greater than 449 call physician Protocol Text: Suggested for: - Patients on Total Daily Insulin Dose of 56-80 units - Patient who are known to be insulin resistant or septic HIGH MEDIUM DOSING ALGORITHM Rx Instructions: Please provide enough for 1 month supply. spironolactone 25 mg tablet 12.5 mg PO DAILY 30 Days Qty: 15 0RF Rx Instructions: Hold for SBP < 110 rosuvastatin [Crestor] 20 mg tablet 20 mg PO DAILY 30 Days Qty: 30 0RF furosemide 20 mg tablet 20 mg PO DAILY Qty: 30 12RF Osteo Bi-Flex Triple Strength 750 mg-644 mg- 30 mg-1 mg tablet 2 tab PO DAILY Referrals / Follow Up: Nyla Garcia GEOTHERMAL POWERPLANT MECHANIC HELPER, GEOTHERMAL POWERPLANT MECHANIC HELPER-C [Primary Care Provider] - Within 1 Week Disposition Disposition (needs filled in before D/C Order can be placed): Home, Self Care Charges/Coding Visit Charges Inpatient E&M: 50779 Disch Hosp >30min
--- NOTE | 2025-04-22 10:07 | CASEMGMT ---
Patient has order for discharge. RN CM in to discuss needs at discharge. Patient denies needs or help at discharge. Patient had no further questions or concerns.
== END 2025-04-22 08:32 | disposition home or self-care (01) ==
LOC: ED 18:32 → PCU 18:58
PROVIDERS: Admitting Provider Hospitalist; Emergency Provider Emergency Medicine; PCP Nurse Practitioner; Visit Provider Family Medicine
DX: J81.0 Acute pulmonary edema (principal); I11.0 Hypertensive heart disease with heart failure; I50.22 Chronic systolic (congestive) heart failure; I48.91 Unspecified atrial fibrillation; E11.40 Type 2 diabetes mellitus with diabetic neuropathy, unspecified; Z79.4 Long term (current) use of insulin; E11.65 Type 2 diabetes mellitus with hyperglycemia; E78.5 Hyperlipidemia, unspecified; K21.9 Gastro-esophageal reflux disease without esophagitis; Z87.891 Personal history of nicotine dependence; R09.02 Hypoxemia; Z79.02 Long term (current) use of antithrombotics/antiplatelets; Z79.84 Long term (current) use of oral hypoglycemic drugs; Z79.82 Long term (current) use of aspirin; I25.10 Atherosclerotic heart disease of native coronary artery without angina pectoris; Z79.899 Other long term (current) drug therapy; Z95.810 Presence of automatic (implantable) cardiac defibrillator; I25.2 Old myocardial infarction; E66.811 Obesity, class 1; Z68.33 Body mass index [BMI] 33.0-33.9, adult
CPT/HCPCS: 36415; 71045; 71275; 80048; 82962; 83735; 83880; 84484; 85025; 85027; 85379; 85610; 85730; 93005; 94668; 96374; 99221; 99285; Q9967; A4216; G0378; J1938

== ENCOUNTER → 2025-04-29 | Day surgery (SDC) | payer OTHER, SELFPAY ==
[2025-04-28 08:22] VITALS: BMI 32.4
== END | disposition home or self-care (01) ==
PROVIDERS: PCP Nurse Practitioner; Referring Provider Specialist; Visit Provider Specialist
DX: Z53.09 Procedure and treatment not carried out because of other contraindication (principal); Z91.148 Patient's other noncompliance with medication regimen for other reason

== ENCOUNTER 2025-06-16 11:37 | Observation (INO) | payer OTHER, SELFPAY ==
[2025-06-03 12:17] LABS: Hematocrit 42.3 % (37-47); Hemoglobin 14.2 g/dL (12.0-15.0); Immature Granulocytes Count 0.020 X10^3/uL (0.0-0.0); Mean Corp Hgb Conc 33.6 g/dL (32-36); Mean Corpuscular Volume 90.8 fL (81-99); Mean Platelet Vol. 12.8 fl (6.2-12.0); NRBC Flagged by Analyzer 0 % (0-5); Platelet Count 187 K/mm3 (150-450); RBC Distribution Width CV 13.2 % (11.6-14.6); RBC Distribution Width SD 43.0 fl (35.1-43.9); Red Blood Count 4.66 M/mm3 (4.2-5.4); White Blood Count 7.7 K/mm3 (4.4-11.0)
[2025-06-03 13:22] LABS: AST(SGOT) 17 U/L (<=31); Alanine Aminotransfer ALT/SGPT 15 U/L (<=34); Albumin, Serum 4.0 g/dL (3.4-4.8); Alkaline Phosphatase 92 U/L (35-104); Anion Gap 12 (5-15); BUN 10 mg/dL (4-19); BUN/Creat Ratio 16.7 RATIO (10-20); Bilirubin, Direct 0.20 mg/dL (0.00-0.30); Calcium,Total 9.0 mg/dL (7.6-11.0); Carbon Dioxide 21.3 mmol/L (21.0-32.0); Chloride 105 mmol/L (98-108); Cholesterol 100 mg/dL (<=200); Globulin 2.7 g/dL (2.2-4.2); Glucose 198 mg/dL (70-99); Low Density Lipoprotein Calc. 39 mg/dL; Potassium 4.5 mmol/L (3.3-5.1); Triglycerides 142 mg/dL; Very Low Density Lipoprotein 28 mg/dL (5-40); cholesterol:hdl ratio screen 3.06
[2025-06-15 12:09] VITALS: BMI 33.3
[2025-06-16] VITALS (13 sets, daily range): BP systolic 95–125; BP diastolic 43–72; PULSE 60–86; RESP 16–20; TEMP 36.8; O2SAT 94–97
--- NOTE | 2025-06-16 08:08 | HP.PCM_ITS ---
History and Physical Date of Admission: 06/16/25 This is a 65-year-old female who presents to the [facility] today for Left Heart Catheterization. Patient presented to the emergency room on 04/01/2025 with complaints of chest pain. She was seen by her PCP which ordered a troponin, which did come back elevated, and she was sent to the emergency room. Patient was admitted for further cardiac evaluation, and an NSTEMI was started. She underwent a cardiac catheterization on 04/02/2025 which demonstrated 95% stenosis in her mid LCx, 80% stenosis in her mid RCA, 80% stenosis in her mid LAD, and 70% stenosis in her distal LAD. She underwent successful percutaneous coronary intervention to the left circumflex, and IFR to the LAD was 0.67. She will need staged PCI to the LAD as an outpatient. Her echocardiogram demonstrated a decreased ejection fraction of 25% She presents today for noted staged intervention. Overall, she states feeling well. She denies chest, arm, jaw, or neck discomfort. She denies palpitations. She denies bilateral lower extremity edema. She denies claudication. She denies shortness of breath with activity, shortness of breath at rest, orthopnea, or PND. She denies chronic cough. She denies significant, sudden weight gain. She states lightheadedness approximately 1-2 hours after taking her spironolactone. She denies dizziness, near-syncope, or syncope. She denies blood in urine, blood in stool, or epistaxis. He denies fever with chills. She denies myalgia. She denies fatigue. Her exercise level has remained stable. Intake Vital Signs: See EMR Intake Visit Reasons: STAGED PCI Vice President Network Development Required: No Is patient in pain?: No Allergies sitagliptin (From Januvia) Allergy (Severe, Verified 05/13/25 10:14) Rash Lauorht-SRQ-FzK Reductase Inhibitor (Jelazvk-Utr-Aqs Reductase Inhibitor) Allergy (Intermediate, Verified 05/13/25 10:14) cramps dapagliflozin (From Farxiga) Adverse Reaction (Severe, Verified 05/13/25 10:14) yeast Medications: See EMR Ejection fraction %: 25 Have you fallen in the past year?: No PFSH Medical History Acute non-ST elevation myocardial infarction (NSTEMI) CAD (coronary artery disease) Congestive heart failure Arteriosclerosis of coronary artery Biventricular automatic implantable cardioverter defibrillator in situ ESBL (extended spectrum beta-lactamase) producing bacteria infection Neuropathy Myocardial infarct GERD (gastroesophageal reflux disease) Diabetes type 2, uncontrolled Hypertension Pacemaker Cardiac defibrillator in place Surgical History Stented coronary artery (04/03/25) H/O tubal ligation H/O heart artery stent Family History Sister Breast cancer Diabetes Thyroid disorder Mother CVA (cerebral vascular accident) Diabetes Heart disease Myocardial infarction Father Heart disease Myocardial infarction Other Acute non-ST elevation myocardial infarction (NSTEMI) CAD (coronary artery disease) Social History Smoking Status: Former smoker how long ago did patient quit smokin alcohol intake: never substance use type: does not use caffeine: Yes Type: coffee Number of servings: 2 ROS Const Const: Positive for other (I feel good); Negative for fatigue or weakness Eyes Eyes: Negative for change in vision ENT ENT: Negative for dizziness or balance problems Cardio Chest Pain: No Palpitations: No Edema: None Resp Respiratory: Negative for SOB with activity, SOB at rest or SOB orthopnea\SOB lying down GI GI: Negative nausea or heartburn Musc Musc: Negative for balance problems Neuro Neuro: Positive for lightheadedness (for about 1-2 hours after spironolactone); Negative for dizziness, near syncope, syncope or weakness Endo Endo: Negative for fatigue Cardiology Exam Const Appearance: cooperative and no acute distress Nutritional Appearance: obese Orientation: alert and oriented x3 Head Head: normal to inspection Ears: hearing grossly normal bilaterally Nose: external nose normal Face and Sinus: face symmetric Eyes General: appearance normal, both eyes and all related structures Eyelids: eyelids normal Conjunctivae: conjunctivae normal Pupils: PERRL and pupil size EOM: EOM intact bilaterally Neck Neck: normal visual inspection Carotids: Negative bruit Chest Chest inspection: normal inspection of the chest and normal respiratory effort Auscultation: Bilateral: Clear to Auscultation Cardio Palpation: normal PMI Rate: regular rate Rhythm: regular rhythm Heart sounds: S1 normal and S2 normal; Negative rub, gallop or murmur GI GI: normal to inspection, soft and obese Neuro General: patient alert and patient oriented x3 Skin Skin: no rashes or lesions noted Extremities Pulses: Normal: Right Posterior Tibial Pulse, Left Posterior Tibial Pulse, Right Radial Pulse and Left Radial Pulse Bruits: Negative: Right Radial Bruit Lower Extremity Edema: None: Bilateral Psych Psychological: normal affect Supplemental Info Supplemental Information Echocardiogram 03/2025: Interpretation Summary Severe global left ventricular systolic dysfunction. The LV ejection fraction is 25 %. Focal on global wall motion. ICD or pacer leads identified within the right ventricle. There is evidence of diastolic dysfunction. Moderate pulmonary hypertension. Severely dilated left ventricle. Cardiac Catheterization 03/2025: CONCLUSION: 1. There significant epicardial coronary artery disease noted. 3 vessel disease including non dominant RCA, severe LCX and mid LAD. 2. Status post successful percutaneous coronary intervention to left circumflex using 3.0 by 26 mm [place] MORGAN. 3. IFR to the LAD (0.67). Assessment and Plan Assessment and Plan (1) Stented coronary artery: Status: Chronic Comment: 3.0 X 26 mm Darinel [place] MORGAN to LCX IFR to LAD = 0.67 Plan: Patient has a history of coronary artery disease with recent stent placement to her left circumflex artery. Her cardiac catheterization on 04/02/2025 was reviewed with patient. Her LAD demonstrated an IFR of 0.67. A staged PCI to the LAD was recommended on an outpatient basis. Patient is agreeable to proceed. Cardiac catheterization instructions were reviewed with patient, she verbalizes understanding. She will continue aspirin 81 mg daily, Plavix 75 mg daily, metoprolol succinate 100 mg daily, Zetia 10 mg daily, and rosuvastatin 20 mg daily. She will hold metformin as well. She will continue to monitor for any concerning symptoms. (2) HFrEF (heart failure with reduced ejection fraction): Status: Acute Plan: Patient's echocardiogram from 04/02/2025 demonstrated ejection fraction of 25%. This was reviewed with patient. 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 She will continue di goxin 125 mcg daily, furosemide 20 mg daily, losartan 50 mg daily, and metoprolol succinate 100 mg daily. After intervention, we will repeat echocardiogram to evaluate LV function. (3) Hypertension: Status: Chronic Qualifiers: Hypertension type: essential hypertension Qualified Code(s): I10 - Essential (primary) hypertension Plan: Patient's blood pressure is well-controlled. We will continue to monitor. We will not make any medication regimen changes. (4) Biventricular automatic implantable cardioverter defibrillator in situ: Status: Acute Plan: Patient's most recent PANTOGRAPH I ENGRAVER?D interrogation from 04/02/2025 showed a presenting rhythm of AF/BiV paced at 78 bpm. No VT/VF episodes, and 1 MS episode, less than 1% total time. MS episode on 04/01/2025 shows what appears to be atrial tac hycardia at 213 bpm for approximately 6 seconds. BiV paced 98%. AP less than 1%. Estimated battery life 4.1 years. Patient will continue to have device followed by [facility]. (5) Dyslipidemia: Status: Acute Plan: Patient has a history of dyslipidemia. Her most recent lipid panel from 04/03/2025: Cholesterol 218, HDL 28, LDL 123, triglycerides 335. She will continue Zetia 10 mg daily, and rosuvastatin 20 mg daily. She will continue with aggressive risk factor and lifestyle modifications. She was minded LDL g oal of 70 and below for secondary prevention. Will continue to adjust medications depending on LDL results. (6) Diabetes type 2, uncontrolled: Status: Chronic Qualifiers: Glycemic state: with hyperglycemia Qualified Code(s): E11.65 - Type 2 diabetes mellitus with hyperglycemia Plan: She is currently on metformin and insulin. GLP-1 medication and SGLT2 inhibitor medication reviewed. Given her history of reduced LV function and diabetes, SGLT2 medication will be considered. However, she does have noted allergy to Farxiga.
--- NOTE | 2025-06-16 11:35 | CL.I_ITS ---
Patient Name: EAMON SCHWAB Study Date: 06/16/2025 Performing: Sarbjit Nash MD Ht: 64 inches 162.56 cm : 1960 Wt: 194.3 lbs 88 kg Age: 65 Gender: female BSA: 1.93 PROCEDURE(S) PERFORMED IC12-(10423/C9600)MORGAN W/WO PTCA, SINGLE CORONARY ARTERY CLINICAL PROFILE AND CO-MORBIDITIES Indications: Stable Known CAD, Cardiomyopathy Heart Failure: NYHA Class: 2, Newly Diagnosed: No, Heart Failure Type: Systolic CAD Presentations: No Sxs, no angina. CONCLUSIONS Successful MORGAN distal LAD using [place] 2.5x12 mm Successful MORGAN Prox LAD using [place] 2.75x38 mm RECOMMENDATIONS ASA Indefinitley P2Y12 inhibitors for atleast 6 months DESCRIPTION OF PROCEDURE The patient arrived to the procedure lab. The risks and benefits of the procedure as well as a full description of our services here and current unavailability of surgical backup were fully explained to the patient and/or their significant other prior to the catheterization. The Timeout was completed, verifying the correct patient and procedure. The patient's procedural site was prepped and draped in the usual fashion. Local anesthetic was given subcutaneously to right radial region with Lidocaine 2%. Using a modified Seldinger technique, arterial access was obtained via the right radial artery, a 6Fr sheath was inserted.. XB 3.0 Guide catheter was inserted and engaged into the LCA. Runthrough Guide wire was advanced to the LAD. [place] 2.5x12 Drug Eluting stent was inserted. Drug Eluting stent was removed intact, failed to cross lesion Runthrough Guide wire was inserted as a cornell wire [place] 2.5x12 Drug Eluting stent was inserted. Angiogram performed post stent deployment. [place] Emerge 2.50x12 Balloon catheter was inserted. Angiogram performed post balloon dilatation. [place] 2.75x38 Drug Eluting stent was inserted. Angiogram performed post stent deployment. [place] Emerge 2.75x20 Balloon catheter was inserted. Angiogram performed post balloon dilatation. The arterial sheath was pulled and a TR Band was applied for hemostasis w/ 10ml air INTERVENTION INFORMATION LESION SITE: LAD (Distal) Lesion Complexity: Non-High/Non-C, lesion length: 10 mm Pre Stenosis: 70 % Pre intervention GILSON flow: 3 PROCEDURE: Drug Eluting Stent with post dilatation Post Stenosis: 0 % Post intervention GILSON flow: 3 Lesion Devices: Terumo .014 180cm Runthrough Extra Floppy straight Cordis 6 Fr XB3.0 100cm Guide Catheter Medtronic 2.50 x 12 JUAN FRONTIER MORGAN Jose Miguel Sci NC EMERGE MR 2.50x12 BALLOON Medtronic 2.75 x 38 JUAN FRONTIER MORGAN LESION SITE: LAD (Mid) Lesion Complexity: High/C, lesion length: 36 mm Pre Stenosis: 80 % PROCEDURE: Drug Eluting Stent with post dilatation Lesion Devices: Terumo .014 180cm Runthrough Extra Floppy straight Cordis 6 Fr XB3.0 100cm Guide Catheter Jose Miguel Sci NC EMERGE MR 2.75x20 BALLOON COMPLICATIONS No Complications PROCEDURE MEDICATIONS Versed 1 mg IV Fentanyl 50 mcg IV Oxygen: 2 L/min via nasal cannula Heparin given IA 06/16/2025 10:45:09 Heparin 6000 unit(s) IV 06/16/2025 10:45:30 Nitro 200 mcg IC 06/16/2025 11:04:20 Plavix 300 mg PO 06/16/2025 11:15:36 Verapamil 2.5mg, Ntg 200mcgs, 2000 units of Heparin given IA 06/16/2025 10:45:09 SUMMARY OF HEMODYNAMIC DATA Time AIR REST ECG 08:49:37 AO 116/67 (86) SA 10:48:37 AO 134/57 (89) 11:04:42 AO 129/71 (92) 11:08:57 Signed By Sarbjit Nash MD On 06/16/2025 11:34:35 Sarbjit Nash MD
--- NOTE | 2025-06-16 11:39 | PCM.DC ---
Discharge Instructions DC O2, CPAP, BIPAP needs Home O2 Discharge instructions: No Dressing / Incision Discharge Activity: Return to Normal Activity Dressing / Incision Call your doctor if your incision/area has: Continuous Slow Oozing, Sudden Increased Bleeding, Increased Pain/ Swelling, Increased Redness, Foul Smelling Discharge and Swelling at the incision site Call your doctor if you observe: Fever of 101 or Higher, Coldness, Increased Pain, Numbness or Tingling and Change in Color Follow Up Care Please Follow Up With: Sarbjit Nash MD When: 2-4 weeks Test Results: Test results from this visit will be discussed in further detail at your follow-up appointment, if applicable. Discharge Plan Admission Admit Date/Time: 06/16/25 11:38 Attending Provider: Sarbjit Nash Primary Care Provider: Nyla Garcia NP Consulting Providers: Tamanna Guerra NP Discharge Orders/Prescriptions Prescriptions: New pantoprazole 40 mg tablet,delayed release (DR/EC) 40 mg PO DAILY Qty: 30 6RF Continued rosuvastatin [Crestor] 20 mg tablet 20 mg PO DAILY Qty: 90 3RF ezetimibe 10 mg tablet 10 mg PO DAILY Qty: 90 3RF (DME) OneTouch Ultra Test Strip See Rx Instructions .Route Qty: 100 12RF Rx Instructions: As directed (DME) lancets [E-Z Ject Lancets] 30 gauge misc See Rx Instructions .Route Qty: 100 3RF Rx Instructions: As directed digoxin 125 mcg (0.125 mg) tablet 125 mcg PO DAILY Qty: 30 12RF losartan 50 mg tablet 50 mg PO DAILY Qty: 30 12RF metoprolol succinate 100 mg tablet extended release 24 hr 100 mg PO DAILY Qty: 30 12RF nitroglycerin 0.4 mg tablet, sublingual 0.4 mg SUBLINGUAL Q5-15M PRN (Reason: chest pain) Qty: 30 12RF Rx Instructions: until response; do not exceed 3 doses per episode aspirin 81 mg Tablet,Chewable 81 mg PO BREAKFAST 30 Days Qty: 30 0RF insulin glargine-yfgn 100 unit/mL (3 mL) Insulin Pen 15 unit subcut QHS 30 Days Qty: 4.5 0RF Rx Instructions: Please provide enough for 1 month supply. insulin lispro [Humalog KwikPen Insulin] 100 unit/mL Insulin Pen See Protocol subcut ACHS Qty: 15 0RF Protocol: 4. Sliding Scale Insulin High-Med Dosing Condition: 150-199 mg/dl = 2 units Condition: 200-259 mg/dl = 4 units Condition: 260-324 mg/dl = 6 units Condition: 325-374 mg/dl = 8 units Condition: 375-409 mg/dl = 10 units Condition: 410-449 mg/dl = 11 units Condition: Greater than 449 call physician Protocol Text: Suggested for: - Patients on Total Daily Insulin Dose of 56-80 units - Patient who are known to be insulin resistant or septic HIGH MEDIUM DOSING ALGORITHM Rx Instructions: Please provide enough for 1 month supply. spironolactone 25 mg tablet 12.5 mg PO DAILY 30 Days Qty: 15 0RF Rx Instructions: Hold for SBP < 110 furosemide 20 mg tablet 20 mg PO DAILY Qty: 30 12RF Osteo Bi-Flex Triple Strength 750 mg-644 mg- 30 mg-1 mg tablet 2 tab PO DAILY clopidogrel [Plavix] 75 mg tablet 75 mg PO QDAY Qty: 94 3RF Rx Instructions: You will take 4 tablets on day one, and then one tablet daily. cholecalciferol (vitamin D3) [Vitamin D3] 10 mcg (400 unit) capsule 10 mcg PO DAILY 30 Days Qty: 30 0RF Held metformin 850 mg tablet 850 mg PO BID Qty: 60 12RF Hold Instructions: Resume on 06/19/25. Discontinued omeprazole 40 mg capsule,delayed release(DR/EC) 40 mg PO DAILY PRN (Reason: GERD) Qty: 30 12RF Referrals / Follow Up: Nyla Garcia NP, [employer]HA[employer] EQUIPMENT OPERATOR-C [Primary Care Provider, Family Practice] Disposition Disposition (needs filled in before D/C Order can be placed): Home, Self Care
--- NOTE | 2025-06-16 12:07 | CRPHASE1 ---
Patient Communication Patient Information Former Patient:: Phase I PHII Cardiac Rehab Discussed with Patient:: Yes Guide to Cardiac Rehab Given to Patient:: Yes Cardiac Rehab Facility Choice List Given to Patient:: Yes Communication to Cardiac Rehab Choice Program [facility] CR PHII:: Communication Given to CR Choice Program Other:: Communication Given to CR Sketcher:: Sarbjit Nash PCP:: Nyla Garcia EMBOSSING CLERK Refer Phase II Cardiac Rehab:: Yes Sessions:: 36 sessions - 3 days/wk, 12 weeks Post Discharge Choice Letter Given to Patient:: Yes Guide to Cardiac Rehab Given by ICU Staff Prior to Discharge:: Yes (FREEDOM OF INFORMATION OFFICER STAFF) Phase I Charge:: Level I - Education Medical/Surgical History Medical History HI:: Yes Angina:: Yes CAD:: Yes Congestive Heart Failure:: Yes Cardiomyopathy:: Yes Pulmonary:: Yes Diabetes:: Yes Diabetes Type II:: Yes Hypertension:: Yes Dyslipidemia:: Yes Arrhythmias:: Yes CVA/TIA: Surgical History PTCA:: Yes ICD:: Yes Pacemaker:: Yes Ambulation Ambulation Notes:: walks independently Cardiac Rehabilitation Info Program Information Cardiac Rehabilitation Program Information: Cardiac Rehab The cardiac rehab team at [facility] consists of highly skilled exercise physiologists, nurses, respiratory therapists and physicians working together with you. Our purpose is to help you have a full recovery and achieve the goals you set for yourself. Over the years many of our patients have returned to activities they assumed they would never do again! We can help restore your confidence and motivation to make lifestyle changes that can have a significant impact on your health and quality of life! We can help answer questions and concerns you may have about exercise, lifestyle, medications, diet, stress and anxiety which are common following a hospitalization. WE monitor ECG and vital signs during exercise and discuss your progress with you and report to your physician(s). Cardiac Rehab is proven to help reduce readmissions, improve functional capacity and lower recurrence of problems with your heart. Our Cardiac Rehab program is Certified by the [place] [employer] Pulmonary [employer] (AACVPR) and Accredited by the [employer] through our [facility]. You can contact us at . We invite you to call us with your questions or to get started in our program. If you have other questions or concerns be sure to ask your physician/provider during your follow-up visit. WE look forward to seeing you!
--- NOTE | 2025-06-16 12:09 | CRPH1.INSTRU ---
General Education Discussed with Patient CAD and cardiac anatomy and function:: Patient communicates acknowledgment and Family communicates acknowledgment Explanation of diagnoses and procedures:: Patient communicates acknowledgment and Family communicates acknowledgment Sign/Symptoms of AK:: Patient communicates acknowledgment and Family communicates acknowledgment Antiplatelet therapy: Patient communicates acknowledgment and Family communicates acknowledgment Proper use of NTG-SL: Patient communicates acknowledgment and Family communicates acknowledgment Emergency procedures and activation of EMS: Patient communicates acknowledgment and Family communicates acknowledgment Compliance of all prescribed medications: Patient communicates acknowledgment and Family communicates acknowledgment Smoking Risk Factors Patient Nicotine/Smoking Risk Factors Are:: Never smoked Response Code Nicotine/Smoking Response Code:: Not instructed Dyslipidemia Risk Factors Patient Dyslipidemia Risk Factors Are:: Total Cholesterol, Triglycerides, HDL and LDL Recommendations Recommendations Include:: Lipid profile provided Response Code Dyslipidemia Response Code:: Patient communicates acknowledgment and Family communicates acknowledgment Overweight/Obesity Risk Factors Patient Overweight/Obesity Risk Factors Are:: Obesity - > or = 30 (33.3) Recommendations Recommendations Include:: Weight loss of 5-10%, Reduced calorie diet and Exercise 5-7 times/week Response Code Overweight/Obesity:: Patient communicates acknowledgment and Family communicates acknowledgment Hypertension Recommendations Recommendations Include:: BP <130/80 if diabetic and Decrease/maintain normal body weight Response Code Hypertension:: Patient communicates acknowledgment and Family communicates acknowledgment Heart Disease Risk Factors Patient Heart Disease Risk Factors Are:: Family history of heart disease < 65 years old and Previous cardiac event Recommendations Recommendations Include:: Educated family members of their risk and Educated family members of importance of prevention of heart disease Response Code Heart Disease Response Code:: Patient communicates acknowledgment and Family communicates acknowledgment Diabetes Risk Factors Patient Diabetes Risk Factors Are:: Elevated blood sugars Recommendations Recommendations Include:: Maintain fasting blood sugars 70-110 md/dL, Maintain HgbA1c of 6% or less, Monitor blood sugar as prescribed, Diabetic dietary guidelines and Decrease/maintain body weight Response Code Diabetes:: Patient communicates acknowledgment and Family communicates acknowledgment Metabolic Syndrome Risk Factors Patient Metabolic Syndrome Risk Factors Are [3 of 5]:: Hypertension Recommendations Recommendations Include:: Reinforce compliance to risk factor modifications, Patient is diabetic and Encouraged follow-up with Primary Care Physician Response Code Metabolic Syndrome Response Code:: Patient communicates acknowledgment and Family communicates acknowledgment Sedentary Risk Factors Patient Sedentary Risk Factors Are:: Lack of regular exercise Recommendations Recommendations Include:: Aerobic exercise 5-7 times/week for 20-30 minutes continuously, Benefits of regular exercise, Discussed home walking program and Monitored Outpatient Cardiac Rehab Response Code Sedentary Response Code:: Patient communicates acknowledgment and Family communicates acknowledgment Stress Risk Factors Patient Stress Risk Factors Are:: Patient denies stress as a risk factor Response Code Stress Response Code:: Not instructed
[2025-06-16] MEDS: 0.9% Normal Saline (1000mL) 1,000 ML 75 ML IV (12:16)
[2025-06-16 13:43] LABS: ACT Activated Clotting Time 245 sec (74-137)
[2025-06-16] MEDS: 0.9% Saline Lock 10 ML Syringe IV (20:05)
[2025-06-16] MEDS: Insulin Glargine-YFGN 100 UNIT/ML Pen 15 UNIT SC (21:56)
[2025-06-17 04:12] VITALS: BP 111/54; PULSE 75; RESP 16; TEMP 36.4; O2SAT 95
[2025-06-17 07:26] LABS: Hematocrit 40.0 % (37-47); Hemoglobin 13.6 g/dL (12.0-15.0); Mean Corp Hgb Conc 34.0 g/dL (32-36); Mean Corpuscular Volume 88.3 fL (81-99); Mean Platelet Vol. 12.7 fl (6.2-12.0); Platelet Count 180 K/mm3 (150-450); RBC Distribution Width CV 13.1 % (11.6-14.6); RBC Distribution Width SD 42.5 fl (35.1-43.9); Red Blood Count 4.53 M/mm3 (4.2-5.4); White Blood Count 7.5 K/mm3 (4.4-11.0)
[2025-06-17 07:48] LABS: AST(SGOT) 17 U/L (<=31); Alanine Aminotransfer ALT/SGPT 16 U/L (<=34); Albumin, Serum 3.9 g/dL (3.4-4.8); Alkaline Phosphatase 90 U/L (35-104); Anion Gap 11 (5-15); BUN 13 mg/dL (4-19); BUN/Creat Ratio 22.5 RATIO (10-20); Calcium,Total 8.9 mg/dL (7.6-11.0); Carbon Dioxide 21.3 mmol/L (21.0-32.0); Chloride 102 mmol/L (98-108); Estimated Creatinine Clearance 108.48 ml/min (50-250); Globulin 2.5 g/dL (2.2-4.2); Glucose 266 mg/dL (70-99); Potassium 4.3 mmol/L (3.3-5.1)
[2025-06-17 09:15] VITALS: BP 121/55; PULSE 84; RESP 14; TEMP 36.2; O2SAT 97
[2025-06-17 09:20] VITALS: PULSE 84
[2025-06-17] MEDS: Metoprolol(XL)Succ 100 MG Tablet PO (09:20)
--- NOTE | 2025-06-17 09:29 | PHA.DC.MR.R ---
[facility] has performed discharge medication reconciliation for this patient. The patient's discharge medication list was reviewed for discrepancies and discrepancies were resolved. Medications at Discharge Home Medications blood sugar diagnostic (OneTouch Ultra Test strips) #100 ea 12/21/23 lancets 30 gauge (E-Z Ject Lancets) #100 ea 12/21/23 digoxin 125 mcg (0.125 mg) tablet 125 mcg PO DAILY heart #30 tabs 03/20/25 losartan 50 mg tablet 50 mg PO DAILY bp #30 tabs 03/20/25 metformin 850 mg tablet 850 mg PO BID diabetes #60 tabs 03/20/25 Held on 06/16/25. Instructions: Resume on 06/19/25. metoprolol succinate 100 mg tablet,extended release 24 hr 100 mg PO DAILY heart #30 tabs 03/20/25 nitroglycerin 0.4 mg sublingual tablet 0.4 mg sublingual Q5-15M PRN chest pain #30 tabs 03/20/25 aspirin 81 mg chewable tablet 81 mg PO BREAKFAST heart health 30 days #30 tabs 04/02/25 furosemide 20 mg tablet 20 mg PO DAILY Swelling #30 tabs 04/02/25 insulin glargine-yfgn 100 unit/mL (3 mL) subcutaneous pen 15 unit (0.15 mL) subcut QHS diabetes 30 days #4.5 mL 04/02/25 insulin lispro 100 unit/mL subcutaneous pen (Humalog KwikPen (U-100) Insulin) See Protocol subcut ACHS diabetes #15 mL 04/02/25 spironolactone 25 mg tablet 12.5 mg (1/2 x 25 mg) PO DAILY diuretic 30 days #15 tabs 04/02/25 glucosamine 750 [id number] no1 644 mg-C 30 mg-mar 1 mg tablet (Osteo Bi-Flex Triple Strength) 2 tab PO DAILY supplement 04/21/25 clopidogrel 75 mg tablet (Plavix) 75 mg PO QDAY anti platelet #94 tabs 04/29/25 ezetimibe 10 mg tablet 10 mg PO DAILY cholesterol #90 tabs 05/13/25 rosuvastatin 20 mg tablet (Crestor) 20 mg PO DAILY cholesterol #90 tabs 05/13/25 cholecalciferol (vitamin D3) 10 mcg (400 unit) capsule (Vitamin D3) 10 mcg PO DAILY vitamin 30 days #30 caps 06/08/25 pantoprazole 40 mg tablet,delayed release 40 mg PO DAILY #30 tabs 06/16/25
--- NOTE | 2025-06-17 10:24 | CASEMGMT ---
Patient has order for discharge. RN CM in to discuss needs at discharge. Patient denies needs or help at discharge. Patient had no further questions or concerns.
== END 2025-06-17 10:42 | disposition home or self-care (01) ==
LOC: PCU 11:44
PROVIDERS: Nurse Practitioner Gerontology; Admitting Provider Internal Medicine Cardiovascular Disease; PCP Nurse Practitioner; Referring Provider Internal Medicine Cardiovascular Disease; Visit Provider Internal Medicine Cardiovascular Disease
DX: I25.10 Atherosclerotic heart disease of native coronary artery without angina pectoris (principal); I11.0 Hypertensive heart disease with heart failure; I50.22 Chronic systolic (congestive) heart failure; I42.9 Cardiomyopathy, unspecified; E11.40 Type 2 diabetes mellitus with diabetic neuropathy, unspecified; E11.65 Type 2 diabetes mellitus with hyperglycemia; Z79.4 Long term (current) use of insulin; Z87.891 Personal history of nicotine dependence; Z95.5 Presence of coronary angioplasty implant and graft; Z95.810 Presence of automatic (implantable) cardiac defibrillator; E78.5 Hyperlipidemia, unspecified; Z79.84 Long term (current) use of oral hypoglycemic drugs; K21.9 Gastro-esophageal reflux disease without esophagitis; I25.2 Old myocardial infarction
CPT/HCPCS: 36415; 80048; 80053; 80061; 80076; 82962; 85025; 85027; 85347; 92928; 96360; 96361; 99152; 99153; 99221; C1874; C1887; C1894; Q9967; A4216; C1725; C1769; C9600; G0378